=== PATIENT | male | born 1940 | race Caucasian/White ===

== ENCOUNTER → 2017-09-22 11:45 | Outpatient (CLI) | payer MEDICARE, OTHER, SELFPAY ==
[2017-09-22 14:44] LABS: ALB/GLOB Ratio 0.9 RATIO (0.9-2.4); AST(SGOT) 29 U/L (15-37); Alanine Aminotransfer ALT/SGPT 32 U/L (16-61); Albumin, Serum 4.1 g/dL (3.2-5.0); Alkaline Phosphatase 91 U/L (45-117); Anion Gap 11 (5-15); BUN 41 mg/dL (7-18); BUN/Creat Ratio 24.7 RATIO (10-20); Calcium,Total 8.8 mg/dL (8.5-10.1); Chloride 116 mmol/L (98-107); Creatinine, Serum 1.66 mg/dL (0.70-1.30); EST Glomerular Filtration Rate 43 mL/min (>60); Est Glom Filt Rate - Afr Amer 52 mL/min (>60); Globulin 4.4 g/dL (2.2-4.2); Glucose 127 mg/dL (74-106); Potassium 4.2 mmol/L (3.5-5.1); Protein, Total 8.5 g/dL (6.4-8.2); Sodium Level 143 mmol/L (136-145); T4 Free Direct 0.63 ng/dL (0.76-1.46); Thyroid Stim Hormone (TSH) 3.51 uIU/mL (0.358-3.74)
== END ==
PROVIDERS: Family Provider Family Medicine; PCP Family Medicine; Visit Provider Family Medicine
DX: R94.6 Abnormal results of thyroid function studies (principal); K59.1 Functional diarrhea
CPT/HCPCS: 36415; 80053; 82271; 82274; 83630; 84439; 84443; 87177; 87209; 87493

== ENCOUNTER → 2017-10-12 16:14 | Outpatient (CLI) | payer MEDICARE, OTHER, SELFPAY ==
--- NOTE | 2017-10-12 16:19 | RAD_ITS ---
STUDY: X-RAY - ABDOMEN/PELVIS REASON FOR EXAM: Male, 77 years old. Right abdominal pain TECHNIQUE: Supine and upright views of the abdomen and pelvis were obtained. COMPARISON: CT abdomen and pelvis dated October 21, 2015 FINDINGS: The lung bases are unremarkable. There is an unremarkable bowel gas pattern. There is no demonstrated free abdominal air. There are coarse calcifications projected over the lower aspects of both kidneys, right larger than left. Calcified granulomas are again seen in the spleen. There are round calcific densities in the right lower quadrant, possible fecaliths within diverticula. The soft tissues are unremarkable. There are mild degenerative changes in the visualized spine. Sternotomy wires are present. RAD/Abd Inc Decub and/or Erect IMPRESSION: Renal stones project over both kidneys, also present on the prior CT. There is a faint calcific density adjacent to the right transverse process of L2, of unknown location or etiology. This may be located within bowel. There are no acute bowel abnormalities. Electronically Signed: Kim Ford MD at 16:52 EDT Tel Direct: [phone], Service support ,
== END ==
PROVIDERS: Family Provider Family Medicine; PCP Family Medicine; Visit Provider Family Medicine
DX: N20.0 Calculus of kidney (principal)
CPT/HCPCS: 74019

== ENCOUNTER → 2017-12-26 10:38 | Outpatient (CLI) | payer MEDICARE, OTHER, SELFPAY ==
[2017-12-26 13:09] LABS: Anion Gap 8 (5-15); BUN 21 mg/dL (7-18); BUN/Creat Ratio 14.9 RATIO (10-20); Calcium,Total 8.8 mg/dL (8.5-10.1); Chloride 112 mmol/L (98-107); Creatinine, Serum 1.41 mg/dL (0.70-1.30); EST Glomerular Filtration Rate 52 mL/min (>60); Est Glom Filt Rate - Afr Amer 63 mL/min (>60); Glucose 89 mg/dL (74-106); Potassium 3.9 mmol/L (3.5-5.1); Sodium Level 144 mmol/L (136-145); T4 Free Direct 0.85 ng/dL (0.76-1.46); Thyroid Stim Hormone (TSH) 1.86 uIU/mL (0.358-3.74)
== END ==
PROVIDERS: Family Provider Family Medicine; PCP Family Medicine; Visit Provider Family Medicine
DX: E03.9 Hypothyroidism, unspecified (principal); H53.2 Diplopia; I10 Essential (primary) hypertension
CPT/HCPCS: 36415; 80048; 84439; 84443

== ENCOUNTER → 2017-12-28 17:34 | Outpatient (CLI) | payer MEDICARE, OTHER, SELFPAY ==
--- NOTE | 2017-12-28 17:44 | MRI_ITS ---
STUDY: MRI BRAIN WITH AND WITHOUT CONTRAST REASON FOR EXAM: Male, 77 years old. Diplopia for 2 months TECHNIQUE: Standardized multiplanar fat and water weighted pulse sequences were obtained. 10 ml of Gadavist contrast material was administered intravenously for the contrast portion of the examination. COMPARISON: None. FINDINGS: Mild atrophy and periventricular white matter ischemic changes without mass effect or restricted diffusion. 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 Normal thalami. There is no extra-axial fluid accumulation. Normal flow voids within the major intracranial circulation suggesting patency by spin echo criteria. Normal venous enhancement. There is no enhancing intra-axial or extra-axial abnormality. Normal sella turcica, pituitary gland, infundibular stalk, optic chiasm and hypothalamus. Normal tectal plate and pineal gland. Normal midbrain, rubin and medulla. Normal cerebellum. Normal basal cisterns. Normal bilateral temporal bones. Normal bilateral internal auditory canals. There is fluid signal within the right mastoids consistent with inflammatory disease No demonstrated orbital abnormality, within the constraints of a routine brain study. There is mild mucosal thickening within the ethmoid sinuses.. Normal calvarium and skull base. Normal visualized soft tissue structures. Normal visualized upper cervical spine. MRI/Brain W/WO Contrast IMPRESSION: Mild atrophy and periventricular white matter ischemic changes without evidence for acute infarct.. Mild bilateral ethmoid and right mastoid sinus disease Electronically Signed: Naun Hall MD at 19:48 EDT , Service support ,
== END ==
PROVIDERS: Family Provider Family Medicine; PCP Family Medicine; Visit Provider Ophthalmology
DX: H53.2 Diplopia (principal)
CPT/HCPCS: 70553; A9585

== ENCOUNTER → 2018-02-02 12:16 | Outpatient (CLI) | payer MEDICARE, OTHER, SELFPAY ==
[2018-02-02 15:18] LABS: Anion Gap 7 (5-15); BUN 20 mg/dL (7-18); Calcium,Total 9.2 mg/dL (8.5-10.1); Chloride 112 mmol/L (98-107); Creatinine, Serum 1.25 mg/dL (0.70-1.30); EST Glomerular Filtration Rate 60 mL/min (>60); Est Glom Filt Rate - Afr Amer 72 mL/min (>60); Glucose 133 mg/dL (74-106); Sodium Level 143 mmol/L (136-145)
== END ==
PROVIDERS: Family Provider Family Medicine; PCP Family Medicine; Visit Provider Family Medicine
DX: I10 Essential (primary) hypertension (principal)
CPT/HCPCS: 36415; 80048

== ENCOUNTER → 2018-08-01 10:56 | Outpatient (CLI) | payer MEDICARE, OTHER, SELFPAY ==
[2018-05-22 09:35] VITALS: BMI 26.7
[2018-08-01 13:00] LABS: ALB/GLOB Ratio 1.3 RATIO (0.9-2.4); AST(SGOT) 32 U/L (15-37); Alanine Aminotransfer ALT/SGPT 31 U/L (16-61); Albumin, Serum 4.1 g/dL (3.2-5.0); Alkaline Phosphatase 94 U/L (45-117); Anion Gap 12 (5-15); BUN 22 mg/dL (7-18); BUN/Creat Ratio 16.7 RATIO (10-20); Calcium,Total 9.1 mg/dL (8.5-10.1); Chloride 110 mmol/L (98-107); Cholesterol 195 mg/dL (200); Creatinine, Serum 1.32 mg/dL (0.70-1.30); EST Glomerular Filtration Rate 56 mL/min (>60); Est Glom Filt Rate - Afr Amer 68 mL/min (>60); Globulin 3.2 g/dL (2.2-4.2); Glucose 126 mg/dL (74-106); High Density Lipoprotein 35 mg/dL; Potassium 4.4 mmol/L (3.5-5.1); Protein, Total 7.3 g/dL (6.4-8.2); Sodium Level 146 mmol/L (136-145); Thyroid Stim Hormone (TSH) 1.17 uIU/mL (0.358-3.74); Triglycerides 195 mg/dL; Very Low Density Lipoprotein 39 mg/dL (5-40)
--- OUTSIDE RECORDS SUMMARY | 2018-10-03 08:43 | XMS RPT_ITS ---
:1940 Author Organization OHIP Care Team Providers Name Role Phone Sajan Rowley Attending Unavailable Amrik, Christopher Primary Care Unavailable Gt Rodgers Attending Unavailable Sajan Rowley Referring Unavailable Amrik, Christopher Primary Care Unavailable Sajan Rowley Attending Unavailable Amrik, Christopher Primary Care Unavailable Earl Drummond Attending Unavailable Earl Drummond Referring Unavailable Amrik, Christopher Primary Care Unavailable Sajan Rowley Attending Unavailable Amrik, Christopher Primary Care Unavailable Naun Alvarez Consulting Unavailable Naun Alvarez Attending Unavailable Naun Alvarez Referring Unavailable Amrik, Christophruthie Primary Care Unavailable Sajan Rowley Attending Unavailable Amrik, Christopher Primary Care Unavailable Teddy Anaya Attending Unavailable Sajan Rowley Referring Unavailable PROBLEMS PROBLEMS DATE TYPE CONDITION / CODE ATTENDING STATUS SOURCE 05/22/2018 Unknown I25.10 - Héctor, Benton Active [place] Atherosclerotic heart [facility] disease of [facility] coronary artery Repository without angina pectoris / I25.10(ICD-10) 05/22/2018 Unknown I10 - Essential Héctor, Teddy Active [facility] (primary) [facility] hypertension / Hospital I10(ICD-10) Repository 05/22/2018 Unknown I65.21 - Occlusion Héctor, Teddy Active [facility] and stenosis of right [facility] carotid artery / Hospital I65.21(ICD-10) Repository 05/22/2018 Unknown E78.5 - Héctor, Teddy Active [place] Hyperlipidemia, [facility] unspecified / Hospital E78.5(ICD-10) Repository 12/28/2017 Unknown H53.2 - Diplopia / Alvarez, Active [facility] H53.2(ICD-10) [facility] Repository 10/12/2017 Unknown N20.0 - Calculus of DrummondEarl Active [facility] kidney / [facility] N20.0(ICD-10) Hospital Repository PROCEDURES PROCEDURES No Procedure Records FoundRESULTS RESULTS COMPREHENSIVE METABOLIC Collected: 08/01/2018 Status: F Source: [facility] PROFIL 10:57 AM [facility] REPOSITORY TYPE CODE TESTS RESULT OUT OF RANGE REFERENCE UNITS LAB L501.0100 74-106 mg/dL High GLU 126 Result Comment: Fasting Glucose result greater than or equal to 126 mg/dL suggests DIABETES MELLITUS per A.D.A. criteria. Please note revised GLUCOSE reference range effective 2017. LAB L501.1000 7-18 mg/dL High BUN 22 LAB L501.1100 0.70-1.30 mg/dL High CREAT,SERUM 1.32 Result Comment: The validity of the calculated GFR AND GFRAA in patients over 70 years has not been determined. Clinical correlation is essential. LAB L501.1110 >60 mL/min Low EST GFR 56 Result Comment: Non- GFR Calc LAB L501.1115 >60 mL/min Normal EST GFR - AA 68 Result Comment: GFR Calc LAB L501.1300 10-20 RATIO Normal BUN/CRE 16.7 LAB L501.1500 6.4-8.2 g/dL T Normal PROT 7.3 LAB L501.1800 3.2-5.0 g/dL Normal ALB 4.1 LAB L501.1950 2.2-4.2 g/dL Normal GLOB 3.2 LAB L501.2000 0.9-2.4 RATIO Normal A/G 1.3 LAB L501.2200 8.5-10.1 mg/dL CA Normal 9.1 LAB L501.4100 15-37 U/L Normal AST 32 LAB L501.4305 45-117 U/L Normal ALK P 94 LAB L501.4405 16-61 U/L Normal ALT 31 LAB L501.4600 0.20-1.00 mg/dL T Normal BILI 1.00 LAB L501.5300 136-145 mmol/L High NA 146 LAB L501.5600 3.5-5.1 mmol/L K Normal 4.4 LAB L501.5900 98-107 mmol/L High CL 110 LAB L501.6100 21.0-32.0 mmol/L Normal CO2 24.0 LAB L501.6200 5-15 Normal GAP 12 Performed By: #### L500.4050, L500.4100, L501.9520 #### [facility] [address] [place], [place], [address] LIPID PROFILE Collected: 08/01/2018 Status: F Source: DOWNEY 10:57 AM REPOSITORY TYPE CODE TESTS RESULT OUT OF RANGE REFERENCE UNITS LAB L501.4900 200 mg/dL Normal CHOL 195 Result Comment: <200 mg/dL Desirable 200-240 mg/dL Borderline >240 mg/dL High Risk LAB L501.5000 mg/dL Normal TRIG 195 Result Comment: The drugs N-Acetylcysteine and Metamizole may falsely depress this assay. Serum Triglycerides Reference Interval Normal <150 mg/dL Borderline high 150 - 199 mg/dL High 200 - 499 mg/dL Very High > or = 500 mg/dL LAB L501.6400 mg/dL Low HDL 35 Result Comment: The drugs N-Acetylcysteine and Metamizole may falsely depress this assay. Reference Range HDL <40 mg/dL Low HDL Cholesterol HDL >or= 60 mg/dL High HDL Cholesterol LAB L501.6500 0-130 mg/dL Normal LDL 121 LAB L501.6600 5-40 mg/dL Normal VLDL 39 Performed By: #### L500.4050, L500.4100, L501.9520 #### [facility] [address] [place], [address] THYROID STIM HORMONE Collected: 08/01/2018 Status: F Source: [facility] (TSH) 10:57 AM REPOSITORY TYPE CODE TESTS RESULT OUT OF RANGE REFERENCE UNITS LAB L501.9520 0.358-3.74 uIU/mL Normal TSH 1.17 Performed By: #### L500.4050, L500.4100, L501.9520 #### [facility] [address] [place], [address] CARDIOLOGY VISIT Observed: 05/22/2018 Status: F Source: ASIM REPORT 9:49 AM REPOSITORY [facility] [address] [place] [address] OFFICE VISIT Date of Service: 05/22/18 MR#: [id number] Acct: [id number] Name: GIA VIRAMONTES Rep #: [id number] : 1940 Provider: Teddy Anaya MD Age/Sex: 77/M [place] [facility] [place] Signed [facility] Chief Complaint: Follow-up visit. Details: GIA VIRAMONTES, is a 77 M who presents to the office today for a follow-up visit. He is a gentleman with a history of coronary artery disease status post coronary artery bypass surgery in 2013, with a left internal mammary artery to the left anterior descending artery, saphenous vein graft to the diagonal branch, saphenous vein graft to posterior descending artery, hypertension and hyperlipidemia. He also has a history of carotid artery disease. He denies any chest pain or shortness of breath or paroxysmal nocturnal dyspnea or pedal edema since his bypass surgery he has not had any neck arm or jaw discomfort to suggest angina. He tells me that he recently had cataract surgery. He did have his blood pressure medications adjusted and they appear to be doing much better. His physical exam today demonstrates clear lung brizuela regular rate and rhythm and no pedal edema. His blood pressure is under excellent control. Intake Vital Signs05/22/18 Height 6 ft 05/22/18 Weight: 197 lb 05/22/18 Body Mass Index (BMI) 26.7 05/22/18 Blood Pressure 132/62 H 05/22/18 Blood Pressure Location Lt brachial Intake Visit Reasons: 1 Y FU Veterinary Practitioner Required: No Accompanied by: Is patient in pain?: No Allergies atorvastatin calcium [From Lipitor] Adverse Reaction (Verified 05/22/18 09:36) body aches ezetimibe [From Zetia] Adverse Reaction (Verified 05/22/18 09:36) body aches rosuvastatin calcium [From Crestor] Adverse Reaction (Verified 05/22/18 09:36) body aches Medications Acetaminophen [Tylenol] 500 mg PO Q6H PRN PRN 01/01/14 [History Confirmed 05/22/18] Aspirin [Aspirin, Baby] 81 mg PO DAILY@0800 01/01/14 [History Confirmed 05/22/18] Gemfibrozil 600 mg PO BID 01/01/14 [History Confirmed 05/22/18] Allopurinol [Zyloprim] 300 mg PO DAILY 10/21/15 [History Confirmed 05/22/18] Pantoprazole Sodium [Protonix] 40 mg PO DAILY 10/21/15 [History Confirmed 05/22/18] Potassium Citrate [Potassium Citrate ER] 10 meq PO 4X/DAY 11/18/16 [History Confirmed 05/22/18] metoprolol tartrate 25 mg tablet 25 mg PO BID #180 tab 05/14/18 [Rx Confirmed 05/22/18] amlodipine 5 mg tablet 5 mg PO BID tab 05/22/18 [History Confirmed 05/22/18] levothyroxine 50 mcg capsule 50 mcg PO DAILY 05/22/18 [History Confirmed 05/22/18] lisinopril 40 mg tablet 40 mg PO DAILY 05/22/18 [History Confirmed 05/22/18] [facility] Medical History Carotid stenosis, right (Resolved) Screening for colon cancer (Resolved) Gangrenous cholecystitis (Resolved) HTN (hypertension) (Chronic) Hyperlipemia (Chronic) CAD (coronary artery disease) (Chronic) Diabetes mellitus (Chronic) Surgical History history open heart bypass (Resolved) Status post laparoscopic cholecystectomy (Resolved) Family History Father Diabetes Hypertension High cholesterol Brother High cholesterol Social History Smoking Status: Former smoker alcohol intake: never substance use type: does not use ROS Const Const: Negative for fatigue, weakness, night sweats, excessive sweating, frequent falls, headache(s) or daytime sleepiness Eyes Eyes: Negative for loss of peripheral vision, transient loss of vision, blind spots, double vision or blurry vision ENT ENT: Negative for headache(s), dizziness, balance problems, Nosebleed/epistaxis, tongue swelling or lip swelling Cardio Chest Pain: No Palpitations: No Edema: None Muscle aches with walking: None Resp Respiratory: Negative for SOB at rest, SOB orthopnea\SOB lying down, Cough, paroxysmal nocturnal dyspnea or SOB with activity GI GI: Negative nausea, vomiting, heartburn, black,tarry stools or bright, red blood in stools : Negative for hematuria Musc Musc: Negative for balance problems, muscle aches/ myalgia, muscle weakness or joint pain Skin Skin: Negative non-healing lesions, unusual bruising or rash Neuro Neuro: Negative for weakness, frequent falls, headache(s), double vision, dizziness, lightheadedness, orthostatic symptoms, blurry vision or lack of coordination Jin Hematologic/Lymphatic: Negative for easy bruising or easy bleeding Endo Endo: Negative for fatigue, excessive sweating, cold intolerance, heat intolerance, increased thirst/drinking or hair loss Psych Psych: Negative for anxiety or depression Allergy Allergy/Immunology: Negative for throat swelling, Negative for tongue swelling, Negative for hives, Negative for rash, Negative for lip swelling Cardiology Exam Const Appearance: cooperative, healthy appearing, well developed, well groomed and no acute distress Nutritional Appearance: well nourished and average body habitus Orientation: alert, awake and oriented x3 Head Head: normal to inspection, normocephalic and atraumatic Ears: hearing grossly normal bilaterally and external ears normal Nose: external nose normal, nasal mucous membranes and turbinates normal, nares normal, septum normal, no nasal discharge Face and Sinus: face symmetric Mouth: oral mucosae normal, tongue normal, oropharynx normal and moist mucous membranes Teeth and gingiva: dentition normal Throat: posterior oropharynx normal, tonsils normal and uvula midline Eyes General: appearance normal, both eyes and all related structures Eyelids: eyelids normal Conjunctivae: conjunctivae normal Pupils: PERRL, normal by confrontation and accommodation normal EOM: EOM intact bilaterally Neck Neck: normal visual inspection, trachea midline and no JVD JVD: +5 Carotids: normal carotid upstroke and bounding pulses Chest Chest inspection: normal inspection of the chest, symmetric chest movement and normal respiratory effort Auscultation: Bilateral: Clear to Auscultation Cardio Palpation: normal PMI Rate: regular rate Rhythm: regular rhythm Heart sounds: S1 normal, S2 normal and normal, physiologic split S2; negative rub, gallop or murmur GI GI: normal to inspection, soft, no hepatosplenomegaly and bowel sounds present Neuro General: alert, awake, oriented x3, no focal sensory deficit, gait normal and moves all extremities Skin Skin: no rashes or lesions noted Extremities Pulses: Normal: Right Femoral Pulse, Left Femoral Pulse, Right Dorsalis Pedis Pulse, Left Dorsalis Pedis Pulse, Right Posterior Tibial Pulse, Left Posterior Tibial Pulse, Right Radial Pulse, Left Radial Pulse Lower Extremity Edema: None: Bilateral Musculoskel Musculoskeletal: No joint tenderness Psych Psychological: normal affect Assessment AND Plan 1. CAD (coronary artery disease) I25.10 Plan He does have a history of coronary artery disease and appears to be doing quite well the plan will be for him to continue the current medical therapy. At his next visit next year we should consider an exercise myocardial perfusion stress test. 2. HTN (hypertension) I10 Plan He does have a history of hypertension which is better controlled since his blood pressure medications were adjusted. He will continue on the same without as making any changes. 3. Carotid stenosis, right I65.21 Plan He does have moderate carotid disease noted on his last ultrasound which was performed in June 2017. He appears to have 50-69% stenosis. We will continue with aggressive blood pressure medication adherence as well as lipid-lowering. 4. Hyperlipemia E78.5 Plan He does have a history of hyperlipidemia he tells me that he is scheduled to see you in your office in the next few weeks and a lipid profile will be performed at that time. Please do not hesitate to contact me if any issues arise. 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) Coding Level of Care Code Off vis,est,level 3 Diagnoses CAD (coronary artery disease) I25.10 HTN (hypertension) I10 Carotid stenosis, right I65.21 Hyperlipemia E78.5 Coding Level of Care Code Off vis,est,level 3 Diagnoses CAD (coronary artery disease) I25.10 HTN (hypertension) I10 Carotid stenosis, right I65.21 Hyperlipemia E78.5 05/22/18 0949 <Electronically signed by Teddy Anaya MD> Date Teddy Anaya MD Cosigner Signature: Date (if applicable) CC: Sajan Rowley MD BASIC METABOLIC Collected: 02/02/2018 Status: F Source: [facility] PROFILE (BMP) 12:17 PM REPOSITORY Order Comment: Order Date: 02/02/18 Order Info: 0667-1 - [facility] TYPE CODE TESTS RESULT OUT OF RANGE REFERENCE UNITS LAB L501.0100 74-106 mg/dL High GLU 133 Result Comment: Fasting Glucose result greater than or equal to 126 mg/dL suggests DIABETES MELLITUS per A.D.A. criteria. Please note revised GLUCOSE reference range effective 2017. LAB L501.1000 7-18 mg/dL High BUN 20 LAB L501.1100 0.70-1.30 mg/dL Normal CREAT,SERUM 1.25 Result Comment: The validity of the calculated GFR AND GFRAA in patients over 70 years has not been determined. Clinical correlation is essential. LAB L501.1110 >60 mL/min Normal EST GFR 60 Result Comment: Non- GFR Calc LAB L501.1115 >60 mL/min Normal EST GFR - AA 72 Result Comment: GFR Calc LAB L501.1300 10-20 RATIO Normal BUN/CRE 16.0 LAB L501.2200 8.5-10.1 mg/dL CA Normal 9.2 LAB L501.5300 136-145 mmol/L NA Normal 143 LAB L501.5600 3.5-5.1 mmol/L K Normal 4.0 LAB L501.5900 98-107 mmol/L High CL 112 LAB L501.6100 21.0-32.0 mmol/L Normal CO2 24.0 LAB L501.6200 5-15 Normal GAP 7 Performed By: #### L500.2500 #### [facility] [address] [place], [address] BRAIN W/WO CONTRAST Observed: 12/28/2017 Status: F Source: DOWNEY 5:44 PM REPOSITORY [facility] [place] Imaging Services [address] [place] [address] Brain W/WO Contrast MR#: [id number] Acct: [id number] Name: GIA VIRAMONTES Rep #: [id number] : 1940 M 77 From: Naun Hall MD PCP: Sajan Rowley MD Status: REG CLI Study: Brain W/WO Contrast Date of Exam: 12/28/17 Exam# [id number] Ordering Dr: Naun Alvarez MD STUDY: MRI BRAIN WITH AND WITHOUT CONTRAST REASON FOR EXAM: Male, 77 years old. Diplopia for 2 months TECHNIQUE: Standardized multiplanar fat and water weighted pulse sequences were obtained. 10 ml of Gadavist contrast material was administered intravenously for the contrast portion of the examination. COMPARISON: None. FINDINGS: Mild atrophy and periventricular white matter ischemic changes without mass effect or restricted diffusion. 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 Normal thalami. There is no extra-axial fluid accumulation. Normal flow voids within the major intracranial circulation suggesting patency by spin echo criteria. Normal venous enhancement. There is no enhancing intra-axial or extra-axial abnormality. Normal sella turcica, pituitary gland, infundibular stalk, optic chiasm and hypothalamus. Normal tectal plate and pineal gland. Normal midbrain, rubin and medulla. Normal cerebellum. Normal basal cisterns. Normal bilateral temporal bones. Normal bilateral internal auditory canals. There is fluid signal within the right mastoids consistent with inflammatory disease No demonstrated orbital abnormality, within the constraints of a routine brain study. There is mild mucosal thickening within the ethmoid sinuses.. Normal calvarium and skull base. Normal visualized soft tissue structures. Normal visualized upper cervical spine. MRI/Brain W/WO Contrast IMPRESSION: Mild atrophy and periventricular white matter ischemic changes without evidence for acute infarct.. Mild bilateral ethmoid and right mastoid sinus disease Electronically Signed: Naun Hall MD at 19:48 EDT , Service support , CC: Sajan Rowley MD; Naun Alvarez MD Bonus Clerk: Signed BASIC METABOLIC Collected: 12/26/2017 Status: F Source: [facility] PROFILE (BMP) 10:42 AM REPOSITORY Order Comment: PLEASE SEND CRE RESULT TO FOR A MRI ON MONDAY. ORDERED TSH T4F BMP ORDERED CRE TYPE CODE TESTS RESULT OUT OF RANGE REFERENCE UNITS LAB L501.0100 74-106 mg/dL Normal GLU 89 Result Comment: Please note revised GLUCOSE reference range effective 2017. LAB L501.1000 7-18 mg/dL High BUN 21 LAB L501.1100 0.70-1.30 mg/dL High CREAT,SERUM 1.41 Result Comment: The validity of the calculated GFR AND GFRAA in patients over 70 years has not been determined. Clinical correlation is essential. LAB L501.1110 >60 mL/min Low EST GFR 52 Result Comment: Non- GFR Calc LAB L501.1115 >60 mL/min Normal EST GFR - AA 63 Result Comment: GFR Calc LAB L501.1300 10-20 RATIO Normal BUN/CRE 14.9 LAB L501.2200 8.5-10.1 mg/dL CA Normal 8.8 LAB L501.5300 136-145 mmol/L NA Normal 144 LAB L501.5600 3.5-5.1 mmol/L K Normal 3.9 LAB L501.5900 98-107 mmol/L High CL 112 LAB L501.6100 21.0-32.0 mmol/L Normal CO2 24.0 LAB L501.6200 5-15 Normal GAP 8 Performed By: #### L500.2500, L501.9520, L506.0400 #### [facility] [address] [place], [address] THYROID STIM HORMONE Collected: 12/26/2017 Status: F Source: ASIM (TSH) 10:42 AM REPOSITORY Order Comment: PLEASE SEND CRE RESULT TO FOR A MRI ON MONDAY. ORDERED TSH T4F BMP ORDERED CRE TYPE CODE TESTS RESULT OUT OF RANGE REFERENCE UNITS LAB L501.9520 0.358-3.74 uIU/mL Normal TSH 1.86 Performed By: #### L500.2500, L501.9520, L506.0400 #### [facility] [address] [facility] [place], [address] T4 FREE DIRECT Collected: 12/26/2017 Status: F Source: ASIM 10:42 AM REPOSITORY Order Comment: PLEASE SEND CRE RESULT TO FOR A MRI ON MONDAY. ORDERED TSH T4F BMP ORDERED CRE TYPE CODE TESTS RESULT OUT OF RANGE REFERENCE UNITS LAB L506.0400 0.76-1.46 ng/dL Normal T4 FREE 0.85 DIRECT Performed By: #### L500.2500, L501.9520, L506.0400 #### [facility] [address] [place] [place], [address] ABD INC DECUB Observed: 10/12/2017 Status: F Source: ASIM AND/OR ERECT 4:19 PM REPOSITORY [facility] [place] Imaging Services [address] [address] [facility] [address] Abd Inc Decub and/or Erect MR#: [id number] Acct: [id number] Name: GIA VIRAMONTES Rep #: [id number] : 1940 M 77 From: Kim Ford MD PCP: Sajan Rowley MD Status: REG CLI Study: Abd Inc Decub and/or Erect Date of Exam: 10/12/17 Exam# [id number] Ordering Dr: Earl Drummond MD STUDY: X-RAY - ABDOMEN/PELVIS REASON FOR EXAM: Male, 77 years old. Right abdominal pain TECHNIQUE: Supine and upright views of the abdomen and pelvis were obtained. COMPARISON: CT abdomen and pelvis dated October 21, 2015 FINDINGS: The lung bases are unremarkable. There is an unremarkable bowel gas pattern. There is no demonstrated free abdominal air. There are coarse calcifications projected over the lower aspects of both kidneys, right larger than left. Calcified granulomas are again seen in the spleen. There are round calcific densities in the right lower quadrant, possible fecaliths within diverticula. The soft tissues are unremarkable. There are mild degenerative changes in the visualized spine. Sternotomy wires are present. RAD/Abd Inc Decub and/or Erect IMPRESSION: Renal stones project over both kidneys, also present on the prior CT. There is a faint calcific density adjacent to the right transverse process of L2, of unknown location or etiology. This may be located within bowel. There are no acute bowel abnormalities. Electronically Signed: Kim Ford MD at 16:52 EDT Tel Direct: [phone], Service support , CC: Sajan Rowley MD; Earl Drummond MD Bonus Clerk: Signed COMPREHENSIVE METABOLIC Collected: 09/22/2017 Status: F Source: ASIM PROFIL 11:47 AM REPOSITORY Order Comment: Order Date: 09/21/17 Order Info: [id number] - CMP Order Info: 3016-3 - TSH Order Info: 3024-7 - T4F TYPE CODE TESTS RESULT OUT OF RANGE REFERENCE UNITS LAB L501.0100 74-106 mg/dL High GLU 127 Result Comment: Fasting Glucose result greater than or equal to 126 mg/dL suggests DIABETES MELLITUS per A.D.A. criteria. Please note revised GLUCOSE reference range effective 2017. LAB L501.1000 7-18 mg/dL High BUN 41 LAB L501.1100 0.70-1.30 mg/dL High CREAT,SERUM 1.66 Result Comment: The validity of the calculated GFR AND GFRAA in patients over 70 years has not been determined. Clinical correlation is essential. LAB L501.1110 >60 mL/min Low EST GFR 43 Result Comment: Non- GFR Calc LAB L501.1115 >60 mL/min Low EST GFR - AA 52 Result Comment: GFR Calc LAB L501.1300 10-20 RATIO High BUN/CRE 24.7 LAB L501.1500 6.4-8.2 g/dL High T PROT 8.5 LAB L501.1800 3.2-5.0 g/dL Normal ALB 4.1 LAB L501.1950 2.2-4.2 g/dL High GLOB 4.4 LAB L501.2000 0.9-2.4 RATIO Normal A/G 0.9 LAB L501.2200 8.5-10.1 mg/dL CA Normal 8.8 LAB L501.4100 15-37 U/L Normal AST 29 LAB L501.4305 45-117 U/L Normal ALK P 91 LAB L501.4405 16-61 U/L Normal ALT 32 Result Comment: Please note revised ALT reference range effective 2017. LAB L501.4600 0.20-1.00 mg/dL Normal T BILI 0.60 LAB L501.5300 136-145 mmol/L Normal NA 143 LAB L501.5600 3.5-5.1 mmol/L Normal K 4.2 LAB L501.5900 98-107 mmol/L High CL 116 LAB L501.6100 21.0-32.0 mmol/L Low CO2 16.0 LAB L501.6200 5-15 Normal GAP 11 Performed By: #### L500.4050 #### [facility] [address] [place] [place], [address] THYROID STIM HORMONE Collected: 09/22/2017 Status: F Source: ASIM (TSH) 11:47 AM REPOSITORY Order Comment: Order Date: 09/21/17 Order Info: [id number] - CMP Order Info: 3016-3 - TSH Order Info: 3024-7 - T4F TYPE CODE TESTS RESULT OUT OF RANGE REFERENCE UNITS LAB L501.9520 0.358-3.74 uIU/mL Normal TSH 3.51 Performed By: #### L501.9520, L506.0400 #### [facility] [address] [place], [address] T4 FREE DIRECT Collected: 09/22/2017 Status: F Source: ASIM 11:47 AM REPOSITORY Order Comment: Order Date: 09/21/17 Order Info: [id number] - CMP Order Info: 3016-3 - TSH Order Info: 3024-7 - T4F TYPE CODE TESTS RESULT OUT OF REFERENCE UNITS RANGE LAB L506.0400 0.76-1.46 ng/dL Low T4 FREE 0.63 DIRECT Performed By: #### L501.9520, L506.0400 #### [facility] [place], [address] STOOL Observed: 09/22/2017 Status: F Source: ASIM LACTOFERRIN/WBC 11:47 AM REPOSITORY Order Date: 09/21/17 Order Info: [id number] - WBCST Order Info: 0038-2 - C DIFF Order Info: 2335-8 - GASTOC Stool Lacto/WBC Normal Reference Range = Negative Fecal WBC Lactoferrin Negative: No Fecal WBC Lactoferrin present Performed By: #### M100.0605, M100.7900, M100.6796 #### [facility] [place], [address] Observed: 09/22/2017 Status: F Source: ASIM STOOL OCCULT BLOOD 11:47 AM IFOB REPOSITORY Order Date: 09/21/17 Order Info: [id number] - WBCST Order Info: 0038-2 - C DIFF Order Info: 2335-8 - GASTOC STOB iFOB Occult Blood Positive ORGANISM 1: OCCULT BLOOD POSITIVE Performed By: #### M100.0605, M100.7900, M100.6796 #### [facility] [facility] [address] [place], [place], [address] Observed: 09/22/2017 Status: F Source: ASIM CDIFF (MOLECULAR) 11:47 AM REPOSITORY Order Date: 09/21/17 Order Info: [id number] - WBCST Order Info: 0038-2 - C DIFF Order Info: 2335-8 - GASTOC Cdiff-Molecular Normal Reference Range = Negative C. Diff DNA Negative- No toxigenic C. Diff DNA Detected NAAT METHOD Testing was performed using nucleic acid amplification Performed By: #### M100.0605, M100.7900, M100.6796 #### [facility] [address] [place], [place], [address] Observed: 09/22/2017 Status: F Source: ASIM OVA AND PARASITES 11:47 AM REPOSITORY Order Date: 09/21/17 Order Info: [id number] - OP O + P OVA AND PARASITES EXAM, ROUTINE These results were obtained using wet preparation(s) and trichrome stained smear. This test does not include testing for Crytosporidium parvum, Cyclospora, or Microsporidia. TESTING PERFORMED AT [facility]. ORIGINAL REPORT ON FILE IN LAB CONTAINS ADDITIONAL TEST SITE INFORMATION. Ova/Parasite Exam NO OVA, CYSTS, OR PARASITES FOUND. Performed By: #### M600.5000 #### [facility] [address] [place], [place] [address]iliana [address]. [place], [place], [id number] SURGERY VISIT REPORT Observed: 09/01/2017 Status: F Source: ASIM 2:39 PM REPOSITORY [facility] [address] [facility] [address] [place], [place] [address] OFFICE VISIT Date of Service: 09/01/17 MR#: [id number] Acct: [id number] Name: GIA VIRAMONTES Rep #: [id number] : 1940 Provider: Gt Rodgers MD Age/Sex: 77/M Location: [facility] Status: Signed Intake Vital Signs09/01/17 Height 6 ft 09/01/17 Weight: 211 lb Intake Visit Reasons: carotid Veterinary Practitioner Required: No Is patient in pain?: No Allergies atorvastatin calcium [From Lipitor] Adverse Reaction (Verified 09/01/17 13:58) body aches ezetimibe [From Zetia] Adverse Reaction (Verified 09/01/17 13:58) body aches rosuvastatin calcium [From Crestor] Adverse Reaction (Verified 09/01/17 13:58) body aches Medications Acetaminophen [Tylenol] 500 mg PO Q6H PRN PRN 01/01/14 [History Confirmed 09/01/17] Aspirin [Aspirin, Baby] 81 mg PO DAILY@0800 01/01/14 [History Confirmed 09/01/17] Gemfibrozil 600 mg PO BID 01/01/14 [History Confirmed 09/01/17] Acetaminophen/Diphenhydramine [Tylenol Pm Ex-Strength Caplet] 2 ea PO QHS PRN 10/21/15 [History Confirmed 09/01/17] Allopurinol [Zyloprim] 300 mg PO DAILY 10/21/15 [History Confirmed 09/01/17] Glimepiride [Amaryl] 1 mg PO DAILY 10/21/15 [History Confirmed 09/01/17] Hydrochlorothiazide 12.5 mg PO DAILY 10/21/15 [History Confirmed 09/01/17] Lisinopril [Zestril] 20 mg PO DAILY 10/21/15 [History Confirmed 09/01/17] Metoprolol Tartrate [Lopressor (beta jennifer)] 25 mg PO BID 10/21/15 [History Confirmed 09/01/17] Pantoprazole Sodium [Protonix] 40 mg PO DAILY 10/21/15 [History Confirmed 09/01/17] Potassium Citrate [Potassium Citrate ER] 10 meq PO 4X/DAY 11/18/16 [History Confirmed 09/01/17] [facility] Medical History Carotid stenosis, right (Acute) Screening for colon cancer (Acute) Gangrenous cholecystitis (Acute) HTN (hypertension) (Chronic) Hyperlipemia (Chronic) CAD (coronary artery disease) (Chronic) Diabetes mellitus (Chronic) Surgical History Status post laparoscopic cholecystectomy (Acute) history open heart bypass (Acute) Family History Father Diabetes Hypertension High cholesterol Brother High cholesterol Social History Smoking Status: Former smoker alcohol intake: never substance use type: does not use HPI HPI HPI: GIA VIRAMONTES, is a 77 M who presents to the office today for surgical consultation regarding extracranial carotid artery occlusive disease. The patient is referred by Dr. Naun Alvarez and a written copy of my surgical consult recommendations will return to Dr. Alvarez. The patient denies TIA or CVA. He did have coronary bypass grafting 4 years ago. He had been fatigued had a stress test that demonstrated an abnormality. He denies any focal neurologic change. He has no orthostasis. He does have mild hypertension was noted to be mildly hypertensive today. He remotely was a cigarette smoker for approximately 6 years but he quit 14 years ago. He is able to ambulate without calf claudication. Up until 2 months ago he ambulated routinely. More recently he has slacked off. Laboratory as of June 20, 2017 performed at the [facility] demonstrates a BUN of 16 and creatinine of 1 cholesterol of 194 and triglyceride of 205. LDL cholesterol was 117 and VLDL was 41 The patient states that he has been followed for a period of time for extracranial carotid artery occlusive disease. On July 06, 2017 carotid duplex imaging demonstrated peak systolic velocity within the proximal right internal carotid at 194 cm/s with end-diastolic velocity 55 this was felt to be consistent with 50-69% stenosis. Maximal velocity involving the left internal carotid is 102 cm second systolic flow consistent with less than 50% stenosis. It was felt that the velocities in the right internal carotid has slightly increased from November 13, 2015. He did not reach into a more significant stenosis category. He remains asymptomatic ROS General General: Yes weight change; no appetite, fatigue, colon cancer, breast cancer or weakness HEENT HEENT: No difficulty swallowing, eye injury, eye surgery, swollen glands or hoarseness Endo Endocrine: Yes diabetes mellitus; no thyroid disease, thyroid cancer, Hair loss, heat intolerance or cold intolerance Skin Skin: No rash or changing moles Breast Breast: No left breast lump, right breast lump, nipple discharge, breast pain, abnormal mammogram, abnormal US or breast enlargement Musc Musculoskeletal: Yes back problems, arthritis and gout; no rheumatoid arthritis or joint pain Cardio Cardiovascular: Yes heart disease and high blood pressure; no murmur, pacemaker, atrial fibrillation, heart attack, heart stent, palpitations, shortness of breat with exertion or chest pain Psych Psychiatric: No depression, anxiety or hearing voices Resp Respiratory: No shortness of breath, No sleep apnea, No cough, No COPD, No asthma, No emphysema, No wheezing Gastro Gastrointestinal: Yes abdominal pain, No nausea or vomiting, Yes diarrhea, No constipation, No blood in stool, No acid reflux, No hemorrhoids, No ulcers, Yes gallbladder problem, No black,tarry stools Jin Hematologic: Yes blood thinners, No blood disorders, No bleeding, No anemia, No blood clots Neuro Neurologic: No system reviewed and no additional complaints, except as docu, No as per HPI, No abnormal walking, No abnormal hearing, No abnormal movements, No abnormal speech, No behavioral changes, No burning sensations, No confusion, No seizure-like activity, No unsteadiness, No dizziness, No localized weakness, No frequent falls, No headache(s), No lack of coordination, No loss of vision, No memory loss, Yes numbness, No other visual disturbances, No radiating pain, No restless legs, No sensory deficit, No fainting, Yes tingling, No tremor(s), No weakness, No other Exam Const General: cooperative, healthy appearing Nutritional Appearance: overweight Orientation: alert, oriented x3 [facility] Head: normal to inspection Eyes General: appearance normal, both eyes and all related structures Chest Breast Palpation: No nipple discharge Resp Effort AND Inspection: normal respiratory effort Auscultation: clear to auscultation bilaterally Cardio Rate: regular rate Rhythm: regular rhythm Heart Sounds: no murmurs Other: Bilateral femoral and popliteal and DP and PT pulses are 3+ Bilateral radials and brachials are 3+. Bilateral carotids 3+. I am not able to detect a carotid bruit GI Palpation: soft Neuro Cranial Nerves: CN's II-XI intact bilaterally Extrem General: no calf tenderness Psych Affect: normal affect Assessment AND Plan 1. Carotid stenosis, right I65.21 Plan 77-year-old gentleman with asymptomatic right extracranial carotid artery stenosis. This is in the range of 50-69%. The patient is asymptomatic. I do not believe at this point that he requires surgical intervention. I do not believe that this is of the severity that should affect ophthalmologic surgical healing. I have discussed with the patient means of maximizing his general health. We have particularly discussed diet and exercise and glucose management and hypertension management and salt avoidance. It is of note that the patient's blood pressure today on arrival was 186/83. I believe that this actually is of more concern than his carotid stenosis. I have recommended to him carotid duplex imaging at 1 year and surgical follow-up. He will maximize his general health. I have also asked that he follow- up with Dr. Sajan Rowley regarding his blood pressure. I very much appreciate the kind opportunity of assisting with his surgical care Cc: Dr. Sajan Rowley and Dr. Naun Rodgers M.D., F.A.C.S. Coding Level of Care Code Detailed, Low Diagnoses Carotid stenosis, right I65.21 09/01/17 1439 <Electronically signed by Gt Rodgers MD> Date Gt Rodgers MD Cosign Signature: Date (if applicable) CC: Sajan Rowley MD; Naun Alvarez MD ALLERGIES ALLERGIES DATE TYPE / CODE NAME / CODE REACTION SEVERITY SOURCE 05/22/2018 Drug atorvastatin body aches Unknown [place] Allergy/416 calcium/[id number]( [place] [address]([facility] ED CT) Repository 05/22/2018 Drug rosuvastatin body aches Unknown [place] Allergy/416 calcium/[id number]( [place] [address] Repository 05/22/2018 Drug ezetimibe/[id number] body aches Unknown [place] Allergy/416 7(RXNORM) [place] [address]([facility]) Repository ENCOUNTERS ENCOUNTERS ADMIT/DISCHARGE ACCOUNT ADMITTING ENCOUNTER LOCATION SOURCE NUMBER CLASS 08/01/2018 [id number] Ambulatory Asim [place] 1 [facility] ing:MFPLAB Repository 05/22/2018/ [id number] Ambulatory BMSBuilding:B Asim 8 1 MSUZAIR [facility] Repository 02/02/2018 [id number] Ambulatory [place] As[place] 4 [facility] ing:MFPLAB Repository 12/28/2017 [id number] [place] [facility] ing:MRI Repository 12/26/2017 [id number] Ambulatory Asim [place] 0 [facility] ing:MFPLAB Repository 10/12/2017 [id number] Ambulatory Asim [place] 4 [facility] ing:MTRAD Repository 09/22/2017 [id number] Ambulatory [place] 0 [facility] ing:MFPLAB Repository 09/01/2017/ [id number] Ambulatory BMSBuilding:B [place] [facility] PAYERS PAYERS ENCOUNTER GUARANTOR PAYER SUBSCRIBER SOURCE 08/01/2018 GIA L Primary GIA L [place] [id number] DEER Insurance:MEDICARE CLASONDOB: [facility] [place] PART A BPolicy Number: [id number] [id number] Repository 16[address]Xuj: 330) Date:2018-08-01 [phone] () 08/01/2018 Secondary GIA L [place] Insurance:HUMANA CLASONDOB: [facility] [id number] Hospital Number: Repository [id number] Date:[id number] [address]HJ: 08/01/2018 Tertiary NOT GIVENUNK [place] Insurance:SELF PAY [facility]: Effective Repository Date:2018-08-01 05/22/2018 GIA L Primary GIA L [place] [id number] [place] Insurance:MEDICARE CLASONDOB: [facility] [place] PART A BPolicy Number: [id number], [place] [id number] Repository [address]Iqw: ([phone]) Date:2017-06-21 [phone] () 05/22/2018 Secondary GIA L [place] Insurance:HUMANA CLASONDOB: Community COMMERCIALPolicy [id number] Hospital Number: Repository [id number] Date:[id number] [address] [place] [address]TU: 05/22/2018 Tertiary NOT GIVENUNK [place] Insurance:SELF PAY [facility] Hospital Number: Effective Repository Date:2018-05-22 02/02/2018 GIA L Primary GIA L [place] [id number] [place] Insurance:MEDICARE CLASONDOB: Community [place] PART A BPolicy Number: [id number], [place] [id number] Repository 15[address]Qxq: (196) Date:2018-02-02 [phone] () 02/02/2018 Secondary GIA L [place] Insurance:HUMANA CLASONDOB: Community COMMERCIALPolicy [id number] Hospital Number: Repository [id number] Date:[id number] [address] [place] [address]FA: 02/02/2018 Tertiary NOT GIVENUNK [place] Insurance:SELF PAY [facility] Hospital Number: Effective Repository Date:2018-02-02 12/28/2017 GIA L Primary GIA L [place] [id number] [place] Insurance:MEDICARE CLASONDOB: Community [place] PART A BPolicy Number: [id number] [place], [place] [id number] Repository [address]Mln: (330) Date:2017-12-22 [phone] () 12/28/2017 Secondary GIA L [place] Insurance:HUMANA CLASONDOB: Community COMMERCIALPolicy [id number] Hospital Number: Repository [id number] Date:2341-25-21PL [address] [address]FV: 12/28/2017 Tertiary NOT GIVENUNK [place] Insurance:SELF PAY [facility] Number: Effective Repository Date:2017-12-22 12/26/2017 GIA L Primary GIA L [place] [id number] [place] Insurance:MEDICARE CLASONDOB: Community [place] A BPolicy Number: [id number] [place] [id number] Repository [address]Evd: (330) Date:2017-12-26 [phone] () 12/26/2017 Secondary GIA L [place] Insurance:HUMANA CLASONDOB: Community COMMERCIALPolicy [id number] Hospital Number: Repository [id number] Date:[id number] [address]SM: 12/26/2017 Tertiary NOT GIVENUNK [place] Insurance:SELF PAY [facility] Number: Effective Repository Date:2017-12-26 10/12/2017 GIA L Primary GIA L [place] [id number] [place] Insurance:MEDICARE CLASONDOB: Community [place] PART A BPolicy Number: [id number] [place], [place] [id number] Repository [address]Aby: 330) Date:2017-10-12 [phone] () 10/12/2017 Secondary GIA L [place] Insurance:HUMANA CLASONDOB: [facility] [id number] Hospital Number: Repository [id number] Date:[id number] [address]RL: 10/12/2017 Tertiary NOT GIVENUNK [place] Insurance:SELF PAY [facility] Hospital Number: Effective Repository Date:2017-10-12 09/22/2017 GIA L Primary GIA L [place] [id number] [place] Insurance:MEDICARE CLASONDOB: Community [place] PART A BPolicy Number: [id number] [place], [place] [id number] Repository [address]Dye: (330) Date:2017-09-22 [phone] () 09/22/2017 Secondary GIA L [place] Insurance:HUMANA CLASONDOB: Community COMMERCIALPolicy [id number] Hospital Number: Repository [id number] Date:[id number] [address]ZF: 09/22/2017 Tertiary NOT GIVENUNK [place] Insurance:SELF PAY [facility] Number: Effective Repository Date:2017-09-22 09/01/2017 GIA L Primary GIA L [place] [id number] [place] Insurance:MEDICARE CLASONDOB: [facility] [place] PART A BPolicy Number: [id number] [place], [place] [id number] Repository [address]Ayz: 330) Date:2017-08-23 [phone] () 09/01/2017 Secondary GIA L [place] Insurance:HUMANA CLASONDOB: [facility] COMMERCIALPolicy [id number] Hospital Number: Repository [id number] Date:[id number] [address]LF: 09/01/2017 Tertiary NOT GIVENUNK [place] Insurance:SELF PAY [facility] Hospital Number: Effective Repository Date:2017-08-23
== END ==
PROVIDERS: Family Provider Family Medicine; PCP Family Medicine; Visit Provider Family Medicine
DX: I10 Essential (primary) hypertension (principal)
CPT/HCPCS: 36415; 80053; 80061; 84443

== ENCOUNTER → 2018-12-05 09:14 | Outpatient (CLI) | payer MEDICARE, OTHER, SELFPAY ==
--- NOTE | 2018-12-05 | IMM_PTH ---
PATIENT: GIA VIRAMONTES LOC: [facility] A U#:[id number] AGE/SX: 85/M ROOM: RE12/05/[address]: Dr. Sajan Rowley MD : 1940 BED: DIS: SPEC #: [id number] RECD: 12/07/18 13:21 STATUS: CAMRYN REBraeden #: [id number] ELICIA: 12/05/18 00:[address]: Sajan Rowley DEPT: IMMUNOHISTOCHEMISTRY RECD BY: Denita Zendejas Tissues: Skin of forearm, NOS Procedures: Vimentin (add) Pankeratin (initial) MELAN-A (add) P40 (add) S-100 (add) PHYSICIAN & INSTITUTION [place] [address] SPECIMEN INFORMATION: Tissue Source: Left forearm punch biopsy Clinical Info: Rule out melanoma Specimen Number: [id number] CPT code: 95323, 79968 x4 METHODOLOGY: Deparaffinized sections of prefer/formalin-fixed tissue or PAP/DQ stained slides are incubated with monoclonal/polyclonal antibodies/oligonucleotide probes. Localization is made via biotin free immunoperoxidase method. Appropriate controls are performed and reacted as expected. Results on target cell population are indicated in the following table: RESULTS: ANTIBODY / CLONE RESULT AE1-3 (AE1/AE3/PCK26) negative P40 (BC28) negative Vimentin (V9) positive S-100 (4C4.9) positive Melan A (A103) positive These tests were developed and their performance characteristics determined by [facility]. They may not have been cleared or approved by the U.S. Food and Drug Administration. The FDA has determined that such clearance or approval is not necessary. 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 AM:eli 12/14/18
--- NOTE | 2018-12-05 | LES_PTH ---
PATIENT: GIA VIRAMONTES LOC: [facility] U#:[id number] AGE/SX: 85/M ROOM: RE12/05/[address]: Dr. Sajan Rowley MD : 1940 BED: DIS: SPEC #: [id number] RECD: 12/05/18 17:39 STATUS: CAMRYN VIVIANA #: [id number] ELICIA: 12/05/18 00:[address]: Sajan Rowley DEPT: SURGICAL PATHOLOGY RECD BY: Tim Garcia Tissues: Forearm, NOS Procedures: Gen Path Consultation (on slides) Surgery Specimen Level IV HEADER OPERATION: Left forearm punch biopsy PRE-OP DIAGNOSIS: Rule out melanoma TISSUE SUBMITTED: Left forearm punch biopsy MICROSCOPIC DIAGNOSIS Left forearm, punch biopsy: Malignant melanoma in situ, extending to peripheral margin. Solar elastosis. AM:eli 12/14/18 COMMENT Complete re-excision with adequate margins is recommended. Immunohistochemistry ([id number]) supports the above diagnosis. This case is seen in consultation with Dr. Cloud of [place]. Complete consultation report is viewable in EMR. MICROSCOPIC DESCRIPTION Slides are reviewed. GROSS DESCRIPTION Received in fixative is one container labeled with the patient's name and designated left forearm punch biopsy. The specimen consists of a brown skin biopsy measuring 0.5 cm in diameter and punched to a depth of 0.3 cm. The specimen is totally submitted in one cassette. / CE:rg 12/06/18 TC:0 CPT: 70331
== END ==
PROVIDERS: Family Provider Family Medicine; PCP Family Medicine; Referring Provider Family Medicine; Visit Provider Family Medicine
DX: L98.8 Other specified disorders of the skin and subcutaneous tissue (principal)
CPT/HCPCS: 88305; 88325; 88341; 88342

== ENCOUNTER → 2018-12-06 12:57 | Outpatient (CLI) | payer MEDICARE, OTHER, SELFPAY ==
[2018-05-22 09:35] VITALS: BMI 26.7
--- NOTE | 2018-12-06 12:59 | CDU_ITS ---
Reason For Study: Carotid Stenosis Rt. Velocities/BP Lt. Velocities/BP Prox CCA 73.4/9.5 cm/sec. Prox CCA 84.9/11.3 cm/sec. Mid CCA 87.8/9.5 cm/sec. Mid CCA 128.4/18.8 cm/sec. Dist CCA 73.4/9.5 cm/sec. Dist CCA 108.3/13.3 cm/sec. Prox ICA 220.9/34.5 cm/sec. Prox ICA 119.3/17 cm/sec. Mid ICA 153.6/16.3 cm/sec. Mid ICA 91.3/20 cm/sec. Dist ICA 122.5/13.7 cm/sec. Dist ICA 91.3/20 cm/sec. Rt. ICA/CCA = 3.0. Lt. ICA/CCA = 1.1. Prox ECA 163/5 cm/sec. Prox ECA 141.2 cm/sec. Rt. Vert. 53.2/11.4 cm/sec. Lt. Vert. 55.1/9.7 cm/sec. Right Extracranial There is heterogeneous, smooth atherosclerotic plaque noted in the right common carotid artery. There is heterogeneous, irregular atherosclerotic plaque noted in the right internal carotid artery. There is heterogeneous, irregular atherosclerotic plaque noted in the right external carotid artery. Antegrade flow is noted in the right vertebral artery. Left Extracranial There is heterogeneous, smooth atherosclerotic plaque noted in the left common carotid artery. There is heterogeneous, irregular atherosclerotic plaque noted in the left internal carotid artery. There is homogeneous, smooth atherosclerotic plaque noted in the left external carotid artery. Antegrade flow is noted in the left vertebral artery. Procedure Carotid Duplex 91719. Exam performed in department. Interpretation Summary Irregular calcific plague at the proximal right internal and external carotid arteries. 50-69% stenosis right internal carotid <50% stenosis right external carotid Heterogenous plague distal left common carotid and proximal internal and external carotids <50% stenosis left internal carotid but close to this range <50% stenosis left external carotid Patent and antegrade vertebrals bilaterally No clinically significant change since 07/06/17 Ordering Physician: Sajan Rowley Referring Physician: Sajan Rowley Performed By: Windy Landry RVT
== END ==
PROVIDERS: Family Provider Family Medicine; PCP Family Medicine; Referring Provider Family Medicine; Visit Provider Family Medicine
DX: I65.21 Occlusion and stenosis of right carotid artery (principal)
CPT/HCPCS: 93880

== ENCOUNTER 2019-01-01 11:45 | Day surgery (SDC) | payer MEDICARE, OTHER, SELFPAY ==
[2018-12-20 10:47] VITALS: BMI 27.3
--- NOTE | 2019-01-01 00:17 | HP.PCM_ITS ---
History and Physical Date of Admission: 01/01/19 HISTORY OF PRESENT ILLNESS 78 year old man presents with a pigmented lesion on his left proximal dorsal forearm that had been increasing in size over the last several months and has developed some changes in pigmentation. He underwent a punch biopsy on 12/07/18 and it showed a melanoma in situ extending to the peripheral margin. He denies any trauma. He denies any fever. He denies any drainage or bleeding from the lesion. He presents today for further evaluation and treatment. PAST MEDICAL HISTORY Carotid stenosis, right Gangrenous cholecystitis HTN (hypertension) Hyperlipemia CAD (coronary artery disease) Diabetes mellitus Arthritis Cataracts, bilateral Gout Hearing problem Kidney stones Neuropathy Vascular disease Vision problems PAST SURGICAL HISTORY open heart bypass laparoscopic cholecystectomy ALLERGIES atorvastatin calcium [From Lipitor] ezetimibe [From Zetia] rosuvastatin calcium [From Crestor] MEDICATIONS Acetaminophen [Tylenol] Aspirin [Aspirin, Baby] Gemfibrozil Allopurinol [Zyloprim] Pantoprazole Sodium [Protonix] Potassium Citrate [Potassium Citrate ER] amlodipine levothyroxine lisinopril metoprolol tartrate FAMILY HISTORY Father - Diabetes, Hypertension, High cholesterol Brother - High cholesterol Other - Arthritis, Heart disease SOCIAL HISTORY Smoking Status: Former smoker alcohol intake: never substance use type: does not use REVIEW OF SYSTEMS General - Denies fever, fatigue, and weight loss. Eyes - Has cataracts. Denies glaucoma. ENT - Denies nasal congestion and sore throat. Endocrine - Denies excessive thirst and urination. Has heat and cold intolerance. Patient has diabetes mellitus. Skin - Has enlarging changing pigmented lesion on his left proximal dorsal forearm that was punch biopsied on 12/07/18 and it showed a melanoma in situ. Musculoskeletal - Has joint pain, joint stiffness, weakness of muscles and joints, back pain. Denies arthritis. Neuro - Denies headaches. Cardiovascular - Denies chest pain, fatigue, and shortness of breath with exertion. Psych - Denies anxiety and depression. Respiratory - Denies chronic cough and shortness of breath. Patient is a former smoker. Gastrointestinal - Denies nausea, vomiting, and constipation. Has diarrhea. Hematologic - Denies abnormal bruising and bleeding. Genitourinary - Denies hematuria and urinary frequency. Has incontinence. PHYSICAL EXAMINATION General - Alert and Oriented. HEENT - PERRL. EOMI. Throat is clear. No suspicious lesions noted. Neck - Supple and nontender. No cervical adenopathy. No suspicious lesions noted. Lungs - Clear to auscultation. Heart - Regular rate and rhythm. Abdomen - Soft and nondistended. Extremities - FROM. No axillary adenopathy. Radial pulses are palpable. No inguinal adenopathy. On the left proximal dorsal forearm is a pigmented lesion with scattered areas of darker pigmentation. It measures 2.5 x 2.5 cm. It has irregular borders. A recent punch biopsy on 12/07/18 showed a melanoma in situ extending to the peripheral margin. No ulceration. Lesion is nontender. No other suspicious lesions noted. Neuro - CN II-XII grossly intact. Psych - Normal mood and affect. ASSESSMENT 1. 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 2. Diabetes mellitus. 3. Former smoker. PLAN Recommend further establishing a diagnosis with a completion excision. Will send the lesion to Pathology to confirm that there is not another deeper focus of melanoma in this lesion that may alter the definitive treatment. Will leave the wound open and proceed with Silver dressing changes daily until the pathology report is available. If the pathology confirms melanoma in situ with no further deeper focus of melanoma such as with a thickness between 1 and 4 mm thick, then can proceed with the definitive treatment of wide excision of the melanoma with a 5 mm margin in all directions down to the muscular fascia. Reconstruction will be with a skin graft. The reason for the skin graft and not a skin flap is the possibility of horizontal spread of the melanoma in situ. If melanoma in situ is found again at the margins then additional excision would be necessary around the scar. A skin flap scar would be longer than a skin graft scar and therefore it would result in a larger excision and larger skin graft. If the pathology confirms a deeper focus of melanoma such as with a thickness between 1 and 4 mm thick, then would need to address the lymph nodes with a sentinel node biopsy. If positive then a complete lymph node resection would be necessary. If a wide excision of the melanoma is done and this deeper focus of melanoma is then found, the lymphatic drainage would be disrupted and the sentinel lymph node biopsy would not be as accurate and the patient may need a lymph node resection unnecessarily to make sure melanoma is not present in the lymph nodes which can occur microscopically 25-30% of the time. Also additional margin of resection would be necessary if a deeper focus of melanoma is found. A thin melanoma which has a thickness less than 1 mm needs a margin of excision of 1 cm. An intermediate thickness melanoma which has a thickness between 1 and 4 mm needs a margin of excision of 2 cm. A thick melanoma which has a thickness greater than 4 mm needs a margin of excision of 2-3 cm. Surgery will be done under local anesthesia and IV sedation on an outpatient basis. With a melanoma in situ, there is no need for an Oncology evaluation. However if a deeper focus of melanoma is found (greater than 1 mm thick), then would proceed with an Oncology evaluation. 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 Would like to obtain a yearly CXR and yearly lab work with Liver Profile including an LDH and fractionating the Alkaline Phosphatase. These labs can be coordinated with his PCP. Patient was informed of the risks and complications of the procedure including alternatives to surgery. These were discussed with the patient personally. Patient voices understanding and wishes to proceed. Some of the risks and complications were included in a form from the [employer].
[2019-01-01 12:06] VITALS: BP 137/73; PULSE 52; RESP 16; TEMP 36.4; O2SAT 96; BMI 26.9
[2019-01-01 12:30] LABS: Bedside Glucose 133 mg/dL (70-110)
--- NOTE | 2019-01-01 14:00 | TISS_PTH ---
PATIENT: GIA VIRAMONTES LOC: [facility] – [place] U#:[id number] AGE/SX: 78/M ROOM: RE01/01/[address]: Dr. Jesus Vitale MD : 1940 BED: DIS: 01/01/2019 SPEC #: [id number] RECD: 01/02/19 07:57 STATUS: CAMRYN REBraeden #: [id number] ELICIA: 01/01/19 14:[address]: Jesus Vitale DEPT: SURGICAL PATHOLOGY RECD BY: Migdalia Monsalve ENTERED: 01/02/19 10:03 SP TYPE: Tissue Bx JACOB DR: Dr. 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 Closest cutaneous margin 0.1 cm. Dermal histiocytic reaction, chronic inflammation and fibrosis consistent with previous biopsy site. Solar elastosis. CE:eli 01/04/19 MICROSCOPIC DESCRIPTION Slides are reviewed. 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 The specimen consists of a brownish-penny skin fragment measuring 2.7 x 2.2 x 0.7 cm. A suture is present along the 12 o'clock position. The 12 o'clock margin is inked blue, the 3 o'clock margin is inked red, the 6 o'clock margin is inked green, the 9 o'clock margin is inked orange, the deep margin is inked purple. The specimen is serially sectioned and totally submitted in five cassettes. / FA:eli 01/02/19 TC:0 CPT: 33217
[2019-01-01] MEDS: Cefazolin 2 GM in 0.9% Normal Saline 100 ML IV (15:23)
--- NOTE | 2019-01-01 15:38 | OP.PCM_ITS ---
Report of Operation Date of Procedure: 01/01/19 Pre-Operative Diagnosis: 1. 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 2. Diabetes mellitus. 3. Former smoker. Post-Operative Diagnosis: Same. 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 Description of Surgical Findings:: 78 year old man presents with a pigmented lesion on his left proximal dorsal forearm that had been increasing in size over the last several months and has developed some changes in pigmentation. He underwent a punch biopsy on 12/07/18 and it showed a melanoma in situ extending to the peripheral margin. He denies any trauma. He denies any fever. He denies any drainage or bleeding from the lesion. Patient was informed of the risks and complications of the procedure including alternatives to surgery. These were discussed with the patient personally. Patient voices understanding and wishes to proceed. Some of the risks and complications were included in a form from the [employer]. Size of defect left proximal dorsal forearm - 4 x 3.1 x 0.2 cm. 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 Drains: None. Estimated Blood Loss (mL): 2 ml. Description of Procedure: Patient was taken to OR in supine position and was placed under general anesthesia. The left forearm was prepped and draped in the usual fashion. SCD's were placed for DVT prophylaxis. Perioperative antibiotics were given intravenously. Using xylocaine with epinephrine, the melanoma in situ lesion was infiltrated. After waiting 5 minutes for the anesthetic to take effect, I excised the lesion with a completion excision with a 3 mm margin in all directions down into the subcutaneous tissue thus making it a 3.1 mm excision. A suture was marked at the 12 oclock position for pathology orientation. The lesion was sent to Pathology for analysis to evaluate for any deeper focus of melanoma. Once the final pathology has been confirmed after complete excision, then will proceed with definitive excision with a margin down to the muscular fascia with skin flap or skin graft reconstruction. Hemostasis was obtained with electrocautery. The size of the melanoma defect after completion excision of the melanoma in situ was 4 x 3.1 x 0.2 cm. The wound was dressed with Aquacel Silver followed by 4x4 gauze and secured to the skin with 3-0 Nylon tie over stent suture dressing. This was followed by a compression arminda wrap. Patient tolerated the procedure well and was sent to PACU in satisfactory condition. Patient will be sent home on antibiotics and pain medication. Patient will followup later this week for a wound check and a dressing change. Will instruct the family at that time about the Silver dressing changes. When the final pathology report is available, will then schedule the next procedure which is definitive excision with a margin down to the muscular fascia with skin flap or skin graft reconstruction. Grafts/Implants Used: None. - Complications None. - Admit VTE Documentation VTE Present on Admission: No VTE Mechan Device Prophylaxis: SCD's VTE Pharm Prophylaxis ordered?: No Code Visit Surgery Charges CPT - 31149 ICD-10 - D03.62, E11.9, Z87.891
[2019-01-01 15:43] VITALS: BP 127/65; BP 137/73; PULSE 49; RESP 55; TEMP 36.3; O2SAT 95
[2019-01-01 15:45] VITALS: BP 121/65; BP 137/73; PULSE 48; RESP 16; O2SAT 98
--- NOTE | 2019-01-01 15:45 | DCINST_ITS ---
You will use the following diet at home:: No restrictions, Other - encourage nutritional supplementation with protein to help the healing process. Discharge Activity: May not drive while taking narcotic pain medications., May Shower - wear plastic bag over left arm when showering., - - elevate left arm. May shower in (days): 1 - wear plastic bag over left arm when showring. May resume sexual activity in: No Restrictions Weight Bearing Status: Weight bearing as tolerated Lifting Restrictions: 10 lbs. Keep extremity elevated above heart level: Left Arm Call your doctor if your incision/area has: Continuous Slow Oozing, Sudden Increased Bleeding, Increased Pain/ Swelling, Increased Redness, Foul Smelling Discharge, Swelling at the incision site Call your doctor if you observe: Fever of 101 or Higher, Coldness, Increased Pain, Shortness of breath, Chest pain, Calf discomfort, Uncontrolled pain Suture Line Care: - - aquacel silver dressing changes daily after instructing family at first office visit. Change Dressing in (Days):: 2 - will change dressing in office. Cleanse incision/area with: - - wear plastic bag over left arm when showering. Allergies/Adverse Reactions: Allergies atorvastatin calcium [From Lipitor] Adverse Reaction (Verified 01/01/19 12:04) body aches ezetimibe [From Zetia] Adverse Reaction (Verified 01/01/19 12:04) body aches rosuvastatin calcium [From Crestor] Adverse Reaction (Verified 01/01/19 12:04) body aches Medications to take at Discharge Acetaminophen [Tylenol] 500 mg PO Q6H PRN PRN 01/01/14 Gemfibrozil 600 mg PO DAILY 01/01/14 Allopurinol [Zyloprim] 300 mg PO DAILY 10/21/15 Pantoprazole Sodium [Protonix] 40 mg PO DAILY 10/21/15 amlodipine 5 mg tablet 10 mg PO DAILY tab 05/22/18 levothyroxine 50 mcg capsule 50 mcg PO DAILY 05/22/18 lisinopril 40 mg tablet 20 mg PO DAILY 05/22/18 Acetaminophen/Diphenhydramine [Tylenol Pm Ex-Strength Caplet] 2 ea PO QHS 12/27/18 Metoprolol Tartrate [Lopressor (beta jennifer)] 25 mg PO DAILY 12/27/18 Potassium Chloride [K-Dur] 20 meq PO BID 12/27/18 Cefadroxil [Duricef] 500 mg PO BID #28 cap 01/01/19 Lactobacillus Acidophilus/Fos [Acidophilus Probiotic Tablet] 1 ea PO BID #30 tab 01/01/19 Oxycodone HCl/Acetaminophen [Percocet 5/325] 1 tab PO 4X/DAY PRN PRN 7 Days #30 tab 01/01/19 The following prescriptions were given: Lactobacillus Acidophilus/Fos [Acidophilus Probiotic Tablet] 1 ea PO BID #30 tab Prescription Printed Cefadroxil [Duricef] 500 mg PO BID #28 cap Prescription Printed Oxycodone HCl/Acetaminophen [Percocet 5/325] 1 tab PO 4X/DAY PRN PRN 7 Days #30 tab PRN Reason: Pain Prescription Printed Primary Care Physician: Fidencio Rowley MD [Primary Care Provider] - Test Results: Test results from this visit will be discussed in further detail at your follow- up appointment, if applicable. Please Follow Up With: Jesus Vitale MD When: 01/03/19. call [phone] for appt time. Proposed Discharge Date: 01/01/19
[2019-01-01 15:55] LABS: Bedside Glucose 101 mg/dL (70-110)
[2019-01-01 15:56] VITALS: BP 137/65; BP 137/73; PULSE 49; RESP 18; TEMP 36.7; O2SAT 98
[2019-01-01 16:15] VITALS: BP 137/73
== END 2019-01-01 16:24 | disposition home or self-care (01) ==
LOC: SDC 11:46 → AC 11:46
PROVIDERS: Family Provider Family Medicine; PCP Family Medicine; Referring Provider Surgery; Visit Provider Surgery
PROC: (CPT 11603; principal; 2019-01-01 13:50)
DX: D03.9 Melanoma in situ, unspecified (principal); L57.8 Other skin changes due to chronic exposure to nonionizing radiation; E11.40 Type 2 diabetes mellitus with diabetic neuropathy, unspecified; I10 Essential (primary) hypertension; E78.5 Hyperlipidemia, unspecified; I25.10 Atherosclerotic heart disease of native coronary artery without angina pectoris; M10.9 Gout, unspecified; Z79.82 Long term (current) use of aspirin; Z87.891 Personal history of nicotine dependence
CPT/HCPCS: 11603; 82962; 88305; J7120; J2405

== ENCOUNTER 2019-01-08 12:10 | Day surgery (SDC) | payer MEDICARE, OTHER, SELFPAY ==
[2019-01-07 14:37] VITALS: BMI 26.9
--- NOTE | 2019-01-07 22:38 | HP.PCM_ITS ---
History and Physical Date of Admission: 01/08/19 Date of Admission: 01/01/19 HISTORY OF PRESENT ILLNESS 78 year old man presents with a pigmented lesion on his left proximal dorsal forearm that had been increasing in size over the last several months and has developed some changes in pigmentation. He underwent a punch biopsy on 12/07/18 and it showed a melanoma in situ extending to the peripheral margin. He denies any trauma. He denies any fever. He denies any drainage or bleeding from the lesion. He presents today for further evaluation and treatment. PAST MEDICAL HISTORY Carotid stenosis, right Gangrenous cholecystitis HTN (hypertension) Hyperlipemia CAD (coronary artery disease) Diabetes mellitus Arthritis Cataracts, bilateral Gout Hearing problem Kidney stones Neuropathy Vascular disease Vision problems PAST SURGICAL HISTORY open heart bypass laparoscopic cholecystectomy ALLERGIES atorvastatin calcium [From Lipitor] ezetimibe [From Zetia] rosuvastatin calcium [From Crestor] MEDICATIONS Acetaminophen [Tylenol] Aspirin [Aspirin, Baby] Gemfibrozil Allopurinol [Zyloprim] Pantoprazole Sodium [Protonix] Potassium Citrate [Potassium Citrate ER] amlodipine levothyroxine lisinopril metoprolol tartrate FAMILY HISTORY Father - Diabetes, Hypertension, High cholesterol Brother - High cholesterol Other - Arthritis, Heart disease SOCIAL HISTORY Smoking Status: Former smoker alcohol intake: never substance use type: does not use REVIEW OF SYSTEMS General - Denies fever, fatigue, and weight loss. Eyes - Has cataracts. Denies glaucoma. ENT - Denies nasal congestion and sore throat. Endocrine - Denies excessive thirst and urination. Has heat and cold intolerance. Patient has diabetes mellitus. Skin - Has enlarging changing pigmented lesion on his left proximal dorsal forearm that was punch biopsied on 12/07/18 and it showed a melanoma in situ. Musculoskeletal - Has joint pain, joint stiffness, weakness of muscles and joints, back pain. Denies arthritis. Neuro - Denies headaches. Cardiovascular - Denies chest pain, fatigue, and shortness of breath with exertion. Psych - Denies anxiety and depression. Respiratory - Denies chronic cough and shortness of breath. Patient is a former smoker. Gastrointestinal - Denies nausea, vomiting, and constipation. Has diarrhea. Hematologic - Denies abnormal bruising and bleeding. Genitourinary - Denies hematuria and urinary frequency. Has incontinence. PHYSICAL EXAMINATION General - Alert and Oriented. HEENT - PERRL. EOMI. Throat is clear. No suspicious lesions noted. Neck - Supple and nontender. No cervical adenopathy. No suspicious lesions noted. Lungs - Clear to auscultation. Heart - Regular rate and rhythm. Abdomen - Soft and nondistended. Extremities - FROM. No axillary adenopathy. Radial pulses are palpable. No inguinal adenopathy. On the left proximal dorsal forearm is a pigmented lesion with scattered areas of darker pigmentation. It measures 2.5 x 2.5 cm. It has irregular borders. A recent punch biopsy on 12/07/18 showed a melanoma in situ extending to the peripheral margin. No ulceration. Lesion is nontender. No other suspicious lesions noted. Neuro - CN II-XII grossly intact. Psych - Normal mood and affect. ASSESSMENT 1. 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 2. Diabetes mellitus. 3. Former smoker. PLAN Recommend further establishing a diagnosis with a completion excision. Will send the lesion to Pathology to confirm that there is not another deeper focus of melanoma in this lesion that may alter the definitive treatment. Will leave the wound open and proceed with Silver dressing changes daily until the pathology report is available. If the pathology confirms melanoma in situ with no further deeper focus of melanoma such as with a thickness between 1 and 4 mm thick, then can proceed with the definitive treatment of wide excision of the melanoma with a 5 mm margin in all directions down to the muscular fascia. Reconstruction will be with a skin graft. The reason for the skin graft and not a skin flap is the possibility of horizontal spread of the melanoma in situ. If melanoma in situ is found again at the margins then additional excision would be necessary around the scar. A skin flap scar would be longer than a skin graft s car and therefore it would result in a larger excision and larger skin graft. If the pathology confirms a deeper focus of melanoma such as with a thickness between 1 and 4 mm thick, then would need to address the lymph nodes with a sentinel node biopsy. If positive then a complete lymph node resection would be necessary. If a wide excision of the melanoma is done and this deeper focus of melanoma is then found, the lymphatic drainage would be disrupted and the sentinel lymph node biopsy would not be as accurate and the patient may need a lymph node resection unnecessarily to make sure melanoma is not present in the lymph nodes which can occur microscopically 25-30% of the time. Also additional margin of resection would be necessary if a deeper focus of melanoma is found. A thin melanoma which has a thickness less than 1 mm needs a margin of excision of 1 cm. An intermediate thickness melanoma which has a thickness between 1 and 4 mm needs a margin of excision of 2 cm. A thick melanoma which has a thickness greater than 4 mm needs a margin of excision of 2-3 cm. Surgery will be done under local anesthesia and IV sedation on an outpatient basis. With a melanoma in situ, there is no need for an Oncology evaluation. However if a deeper focus of melanoma is found (greater than 1 mm thick), then would proceed with an Oncology evaluation. 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 Would like to obtain a yearly CXR and yearly lab work with Liver Profile including an LDH and fractionating the Alkaline Phosphatase. These labs can be coordinated with his PCP. Patient was informed of the risks and complications of the procedure including alternatives to surgery. These were discussed with the patient personally. Patient voices understanding and wishes to proceed. Some of the risks and complications were included in a form from the [employer].
[2019-01-08] VITALS (7 sets, daily range): BP systolic 115–161; BP diastolic 46–72; PULSE 46–59; RESP 16; TEMP 36.6–37.2; O2SAT 94–97; BMI 27.0
--- NOTE | 2019-01-08 | LES_PTH ---
PATIENT: GIA VIRAMONTES LOC: [facility] – [place] U#:[id number] AGE/SX: 78/M ROOM: RE01/08/[address]: Dr. Jesus Vitale MD : 1940 BED: DIS: 01/08/2019 SPEC #: [id number] RECD: 01/08/19 08:21 STATUS: CAMRYN VIVIANA #: [id number] ELICIA: 01/08/19 00:[address]: Jesus Vitale DEPT: SURGICAL PATHOLOGY RECD BY: Tim Garcia ENTERED: 01/09/19 14:00 SP TYPE: Lesion OTHR DR: Dr. Sajan Rowley MD Tissues: Skin of forearm, NOS Procedures: Surgery Specimen Level IV HEADER OPERATION: Wide excision melanoma in situ, left proximal dorsal forearm PRE-OP DIAGNOSIS: Melanoma in situ left proximal dorsal forearm TISSUE SUBMITTED: Melanoma in situ left proximal dorsal forearm, suture at 12 o'clock MICROSCOPIC DIAGNOSIS Skin of left proximal dorsum, re-excision: Ulceration with associated acute and chronic inflammation and reactive change. Mild melanocytic hyperplasia. No evidence of residual melanoma. AM:eli 01/11/19 COMMENT Immunohistochemistry ([id number]) supports the above diagnosis. Case has been reviewed in consultation with Dr. Prescott who concurs with the above diagnosis. IDC:[email or web address] MICROSCOPIC DESCRIPTION Slides are reviewed. GROSS DESCRIPTION Received in fixative is one container labeled with the patient's name and designated melanoma in situ left proximal dorsal forearm, suture at 12 o'clock. The specimen consists of a round piece of penny-white skin measuring 4.5 x 4.5 cm and up to 1 cm in thickness. There is a central area of ulceration measuring 3.2 x 3 cm. An unremarkable ring of skin around the ulceration measures 0.5 to 0.6 cm in greatest width. The margins are inked as follows: 12 to 3 o'clock - black, 3 to 6 o'clock - blue, 6 to 9 o'clock - green, 9 to 12 o'clock - yellow and deep margin - red. The specimen is serially sectioned and submitted entirely in 11 cassettes from one end to another. Cassette 1 contains the 3 and 9 o'clock margins. / EZEQUIEL:eli 01/09/19 TC:5 CPT: 71341
--- NOTE | 2019-01-08 | IMM_PTH ---
PATIENT: GIA VIRAMONTES LOC: [facility] [place] U#:[id number] AGE/SX: 78/M ROOM: RE01/08/[address]: Dr. Jesus Vitale MD : 1940 BED: DIS: 01/08/2019 SPEC #: [id number] RECD: 01/14/19 09:52 STATUS: CAMRYN REQ #: [id number] ELICIA: 01/08/19 00:[address]: Jesus Vitale DEPT: IMMUNOHISTOCHEMISTRY RECD BY: Denita Zendejas ENTERED: 01/14/19 09:55 SP TYPE: IMMUNO OTHR DR: Dr. 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 Localization is made via biotin free immunoperoxidase method. Appropriate controls are performed and reacted as expected. Results on target cell population are indicated in the following table: RESULTS: ANTIBODY / CLONE RESULT Block 1 P40 (BC28) negative S-100 (4C4.9) positive Melan A (A103) negative Block 2 P40 (BC28) negative S-100 (4C4.9) negative Melan A (A103) negative Block 3 P40 (BC28) negative S-100 (4C4.9) positive Melan A (A103) negative Block 4 P40 (BC28) negative S-100 (4C4.9) negative Melan A (A103) negative Block 5 P40 (BC28) negative S-100 (4C4.9) negative Melan A (A103) negative Block 6 P40 (BC28) negative S-100 (4C4.9) negative Melan A (A103) negative Block 7 P40 (BC28) negative S-100 (4C4.9) negative Melan A (A103) negative Block 8 P40 (BC28) negative S-100 (4C4.9) negative Melan A (A103) negative Block 9 P40 (BC28) negative S-100 (4C4.9) negative Melan A (A103) negative Block 10 P40 (BC28) negative S-100 (4C4.9) negative Melan A (A103) negative Block 11 P40 (BC28) negative S-100 (4C4.9) negative Melan A (A103) negative These tests were developed and their performance characteristics determined by [facility]. They may not have been cleared or approved by the U.S. Food and Drug Administration. The FDA has determined that such clearance or approval is not necessary. INTERPRETATION: Left proximal dorsal forearm, re-excision: No evidence of residual melanoma. AM:eli 01/15/19 Case has been reviewed in consultation with Dr. Prescott who concurs with the above diagnosis. IDC:SJ
[2019-01-08 13:05] LABS: Bedside Glucose 140 mg/dL (70-110)
[2019-01-08] MEDS: Cefazolin 2 GM in 0.9% Normal Saline 100 ML IV (19:25)
[2019-01-08] MEDS: Mupirocin Ointment 22gm Tube 1 APPLIC (21:00)
--- NOTE | 2019-01-08 21:05 | PCM.OPRPT ---
Report of Operation Date of Procedure: 01/08/19 Pre-Operative Diagnosis: 1. 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 2. 4 cm open surgical melanoma in situ wound left proximal dorsal forearm. 3. Diabetes mellitus. 4. Former smoker. Post-Operative Diagnosis: Same. Surgery/Procedure Performed:: Wide excision 4 cm open surgical melanoma in situ wound left proximal dorsal forearm with STSG reconstruction from left flank (25 cm2). Description of Surgical Findings:: The patient had surgery on 01/01/19 where he underwent completion excision 2.5 cm melanoma in situ left proximal dorsal forearm. Postop wound care was done with Aquacel Silver dressing changes. Pathology showed Melanoma in situ with the closest margin of 0.1 cm. He presents today for definitive wide excision of the melanoma in situ wound left proximal dorsal forearm with a 5 mm margin down to the muscular fascia with a skin graft or skin flap reconstruction. Patient was informed of the risks and complications of the procedure including alternatives to surgery. These were discussed with the patient personally. Patient voices understanding and wishes to proceed. Some of the risks and complications were included in a form from the [employer] [employer]. Size of skin graft left proximal dorsal forearm - 5 x 5 cm. client service administrator: None Type of Anesthesia:: Local MAC - xylocaine with epinephrine and IV sedation. Specimen's removed: Melanoma in situ wound left proximal dorsal forearm to Pathology. Drains: None. Estimated Blood Loss (mL): 10 ml. Description of Procedure: Patient was taken to OR in supine position and was given IV sedation. The left proximal dorsal forearm and left flank areas were prepped and draped in the usual fashion. SCD's were placed for DVT prophylaxis. Perioperative antibiotics were given intravenously. The open melanoma wound left proximal dorsal forearm was marked with a 5 mm margin in all directions. The wound was infiltrated with xylocaine and epinephrine. After waiting 5 minutes for the anesthetic to take effect, I proceeded with a wide excision of his melanoma in situ wound down to the muscular fascia. A suture was marked at the 12 oclock position for pathology orientation. The lesion was sent to Pathology for analysis to rule out carcinoma at the margins. The size of the defect was 5 x 5 cm or 25 cm2. I infiltrated an area on his left flank for the skin graft donor area. After waiting 5 minutes for the anesthetic to take effect, I made an elliptical incision into the subcutaneous tissue. The subcutaneous tissue was removed from the undersurface of the dermis in addition to the deeper dermis thus fashioning a thick split thickness skin graft. The skin graft was placed in saline. Some additional subcutaneous tissue was removed from the donor incision to aid in wound closure. Hemostasis was obtained with electrocautery. The wound was irrigated with saline. The donor incision was closed in a multiple layered fashion with 3-0 Monocryl simple running suture for the deeper Thang's fascial layer. The deep dermis and subcutaneous tissue was approximated with 3-0 Monocryl interrupted sutures. The skin was approximated with 3-0 Nylon simple running suture. Antibiotic ointment was applied to the suture line followed by Kerlix gauze dressing. The thick split thickness skin graft was placed on stretch and meshed with a size 15 scalpel. The graft was then placed in the melanoma defect left proximal dorsal forearm and secured to the skin edge with 3-0 Chromic simple interrupted sutures. 3-0 Chromic sutures were also used for central quilting stabilization. Antibiotic ointment was applied to the skin graft followed by Xeroform gauze and cotton balls soaked in saline and secured to the skin with 3-0 Nylon tie over stent suture dressing. Patient tolerated the procedure well and was sent to PACU in satisfactory condition. Patient will be sent home on antibiotics and pain medication. He will keep his left arm elevated during the initial postop period. Patient will followup in a week for a wound check with takedown of the skin graft dressing and for discussion of the pathology report. The donor incision sutures left flank will be removed in two weeks. Grafts/Implants Used: None. - Complications None. - Admit VTE Documentation VTE Present on Admission: No VTE Mechan Device Prophylaxis: SCD's VTE Pharm Prophylaxis ordered?: No Code Visit Surgery Charges CPT - 04309-12 ICD-10 - D03.62, S51.802A, E11.9, Z87.891 19387 D03.62, S51.802A, E11.9, Z87.891
--- NOTE | 2019-01-08 21:11 | DCINST_ITS ---
You will use the following diet at home:: Calorie/Carbohydrate Controlled (specify 1200, 1400, etc) Discharge Activity: May not drive while taking narcotic pain medications., - - no heavy lifting. keep left arm elevated. May shower in (days): 2 - wear plastic bag over left arm when showering. May resume sexual activity in: No Restrictions Weight Bearing Status: Weight bearing as tolerated Lifting Restrictions: 20 lbs. Keep extremity elevated above heart level: Left Arm Call your doctor if your incision/area has: Continuous Slow Oozing, Sudden Increased Bleeding, Increased Pain/ Swelling, Increased Redness, Foul Smelling Discharge, Swelling at the incision site Call your doctor if you observe: Fever of 101 or Higher, Coldness, Increased Pain, Shortness of breath, Chest pain, Calf discomfort, Uncontrolled pain Suture Line Care: - - after dressing removed left flank in 2 days, apply antibiotic ointment to suture line daily followed by the arminda wrap. will apply antibiotic ointment to skin graft left forearm daily after the skin graft dressing removed in the office. Change Dressing in (Days):: 6 - left forearm skin graft dressing will be removed in the office. Remove Dressing in (days):: 2 - left flank dressing. Cleanse incision/area with: - - may shower in two days and wear plastic bag over left arm when showering. Additional Instructions: Patient has Cefadroxil at home from his previous surgery and will continue them. Patient has Percocet at home and will take them as needed for pain. Allergies/Adverse Reactions: Allergies atorvastatin calcium [From Lipitor] Adverse Reaction (Verified 01/08/19 12:31) body aches ezetimibe [From Zetia] Adverse Reaction (Verified 01/08/19 12:31) body aches rosuvastatin calcium [From Crestor] Adverse Reaction (Verified 01/08/19 12:31) body aches Medications to take at Discharge Acetaminophen [Tylenol] 500 mg PO Q6H PRN PRN 01/01/14 Gemfibrozil 600 mg PO DAILY 01/01/14 Allopurinol [Zyloprim] 300 mg PO DAILY 10/21/15 Pantoprazole Sodium [Protonix] 40 mg PO DAILY 10/21/15 amlodipine 5 mg tablet 10 mg PO DAILY tab 05/22/18 levothyroxine 50 mcg capsule 50 mcg PO DAILY 05/22/18 lisinopril 40 mg tablet 20 mg PO DAILY 05/22/18 Acetaminophen/Diphenhydramine [Tylenol Pm Ex-Strength Caplet] 2 ea PO QHS 12/27/18 Metoprolol Tartrate [Lopressor (beta jennifer)] 25 mg PO DAILY 12/27/18 Potassium Chloride [K-Dur] 20 meq PO BID 12/27/18 Cefadroxil [Duricef] 500 mg PO BID #28 cap 01/01/19 Lactobacillus Acidophilus/Fos [Acidophilus Probiotic Tablet] 1 ea PO BID #30 tab 01/01/19 Primary Care Physician: Fidencio Rowley MD [Primary Care Provider] - Test Results: Test results from this visit will be discussed in further detail at your follow- up appointment, if applicable. Please Follow Up With: Jesus Vitale MD When: monday01/14/19. call [phone] for appt. Proposed Discharge Date: 01/08/19
== END 2019-01-08 22:12 | disposition home or self-care (01) ==
LOC: SDC 12:11 → AC 12:12
PROVIDERS: Family Provider Family Medicine; PCP Family Medicine; Referring Provider Surgery; Visit Provider Surgery
PROC: (CPT 11606; principal; 2019-01-08 14:00)
DX: D03.62 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, including shoulder (principal); E78.5 Hyperlipidemia, unspecified; I25.10 Atherosclerotic heart disease of native coronary artery without angina pectoris; E11.40 Type 2 diabetes mellitus with diabetic neuropathy, unspecified; I10 Essential (primary) hypertension; M10.9 Gout, unspecified; M19.90 Unspecified osteoarthritis, unspecified site; Z79.899 Other long term (current) drug therapy; Z79.82 Long term (current) use of aspirin; Z87.891 Personal history of nicotine dependence; K21.9 Gastro-esophageal reflux disease without esophagitis; Z95.1 Presence of aortocoronary bypass graft
CPT/HCPCS: 11606; 15100; 82962; 88305; 88341; 88342; J7120; J2405

== ENCOUNTER → 2019-01-14 16:29 | Outpatient (CLI) | payer MEDICARE, OTHER, SELFPAY ==
[2019-01-03 13:27] VITALS: BMI 26.9
[2019-01-14 14:58] VITALS: BMI 27.0
--- NOTE | 2019-01-14 16:39 | MRI_ITS ---
STUDY: MRI BRAIN WITHOUT CONTRAST REASON FOR EXAM: Male, 78 years old. Diplopia for one year, history of melanoma TECHNIQUE: Standardized multiplanar fat and water weighted pulse sequences were obtained. COMPARISON: 12/28/2017 FINDINGS: There is asymmetry of the ventricles consistent with an anatomic variant. There are multiple white matter hyperintensities, distributed throughout the deep white matter tracts of the cerebral hemispheres, consistent with moderate chronic white matter ischemic changes. Normal bilateral basal ganglia. Normal thalami. There is no extra-axial fluid accumulation. Normal flow voids within the major intracranial circulation suggesting patency by spin echo criteria. Normal sella turcica, pituitary gland, infundibular stalk, optic chiasm and hypothalamus. Normal tectal plate and pineal gland. Normal midbrain, rubin and medulla. Normal cerebellum. Normal basal cisterns. Normal bilateral temporal bones. Normal bilateral internal auditory canals. There are bilateral ocular lens implants with otherwise normal intraorbital contents. Normal visualized paranasal sinuses. Right mastoid sinus disease. Normal visualized soft tissue structures. Normal visualized upper cervical spine. MRI/Brain without Contrast IMPRESSION: No evidence of metastatic disease on this limited noncontrast study. Moderate microangiopathic white matter disease. No evidence of acute infarct or hemorrhage. Electronically Signed: Abhilash Abdi MD at 19:31 EDT Tel , Service support ,
== END ==
PROVIDERS: Family Provider Family Medicine; PCP Family Medicine; Referring Provider Ophthalmology; Visit Provider Ophthalmology
DX: H53.2 Diplopia (principal); Z01.812 Encounter for preprocedural laboratory examination
CPT/HCPCS: 70551

== ENCOUNTER → 2019-02-04 10:28 | Outpatient (CLI) | payer MEDICARE, OTHER, SELFPAY ==
[2019-02-04 14:42] VITALS: BMI 27.0
== END ==
PROVIDERS: Family Provider Family Medicine; PCP Family Medicine; Referring Provider Surgery; Visit Provider Surgery
DX: T81.89XA Other complications of procedures, not elsewhere classified, initial encounter (principal)
CPT/HCPCS: 87070; 87077; 87186; 87205

== ENCOUNTER → 2019-04-02 11:28 | Outpatient (CLI) | payer MEDICARE, OTHER, SELFPAY ==
[2019-03-20 09:38] VITALS: BMI 27.0
[2019-04-02 15:24] LABS: Absolute Lymphocyte Count 1.08 X10^3/uL (0.83-4.51); Absolute Neutrophil Count 2.2 X10^3/uL (2.0-7.7); Basophil# 0.03 X10^3/uL; Basophil% 0.7 % (0-1); Eosinophil# 0.29 X10^3/uL; Eosinophils% 6.5 % (0-5); Hematocrit 42.7 % (40-54); Lymphocyte # 1.08 X10^3/ul (4.0); Lymphocyte % 24.3 % (19-41); Mean Corp Hgb Conc 32.8 g/dL (32-36); Mean Corpuscular Hgb 31.6 pg (27.0-32.0); Mean Corpuscular Volume 96.4 fL (80-94); Mean Platelet Vol. 9.9 fl (6.2-12.0); Monocyte# 0.82 X10^3/uL; Monocyte% 18.4 % (0-10); NRBC Flagged by Analyzer 0 % (0-5); Neutrophil # 2.21 X10^3/uL (2.7-7.7); Neutrophil % 49.7 % (47-70); Platelet Count 175 K/mm3 (150-450); RBC Distribution Width CV 13.9 % (11.6-14.6); RBC Distribution Width SD 49.2 fl (35.1-43.9); Red Blood Count 4.43 M/mm3 (4.6-6.2); White Blood Count 4.5 K/mm3 (4.4-11.0)
[2019-04-02 15:41] LABS: Vitamin B12 332 pg/mL (211-911); Vitamin D,25 Hydroxy 27.2 ng/mL (29.95-100.01)
[2019-04-02 15:43] LABS: Erythrocyte Sedimentation Rate 33 mm/hr (0-20)
[2019-04-02 15:44] LABS: ALB/GLOB Ratio 0.9 RATIO (0.9-2.4); AST(SGOT) 36 U/L (15-37); Alanine Aminotransfer ALT/SGPT 29 U/L (16-61); Albumin, Serum 3.7 g/dL (3.2-5.0); Alkaline Phosphatase 100 U/L (45-117); Anion Gap 9 (5-15); BUN 27 mg/dL (7-18); Calcium,Total 8.7 mg/dL (8.5-10.1); Chloride 115 mmol/L (98-107); Cholesterol 182 mg/dL (200); Creatinine, Serum 1.35 mg/dL (0.70-1.30); EST Glomerular Filtration Rate 54 mL/min (>60); Est Glom Filt Rate - Afr Amer 66 mL/min (>60); Ferritin 273 ng/mL (26-388); Globulin 4.2 g/dL (2.2-4.2); Glucose 128 mg/dL (74-106); High Density Lipoprotein 33 mg/dL; Iron 78 ug/dL (65-175); Magnesium 1.7 mg/dL (1.6-2.6); Potassium 4.1 mmol/L (3.5-5.1); Protein, Total 7.9 g/dL (6.4-8.2); Sodium Level 144 mmol/L (136-145); Thyroid Stim Hormone (TSH) 2.68 uIU/mL (0.358-3.74); Triglycerides 176 mg/dL; Very Low Density Lipoprotein 35 mg/dL (5-40)
[2019-04-04 14:55] LABS: ANTINUCLEAR ANTIBODIES DIRECT Negative (Negative)
== END ==
PROVIDERS: Family Provider Family Medicine; PCP Family Medicine; Referring Provider Family Medicine; Visit Provider Family Medicine
DX: G57.90 Unspecified mononeuropathy of unspecified lower limb (principal); E11.9 Type 2 diabetes mellitus without complications; E03.9 Hypothyroidism, unspecified
CPT/HCPCS: 36415; 80053; 80061; 82306; 82607; 82728; 83540; 83735; 84443; 85025; 85652; 86038

== ENCOUNTER → 2019-06-03 06:13 | Outpatient (CLI) | payer MEDICARE, OTHER, SELFPAY ==
[2019-05-21 09:49] VITALS: BMI 26.7
--- NOTE | 2019-06-03 09:47 | STRESSREP ---
Stress Test Report Exercise myocardial perfusion stress test. 79-year-old man with a history of coronary artery bypass surgery in 214. Stress protocol: Resting EKG demonstrates sinus bradycardia with a rate of 56 bpm normal intervals noted resting blood pressures 140/88 mmHg. The patient exercised according to regular Ronnie protocol for a total duration of 5 minutes. Patient completed 2 minutes into stage II of the Ronnie protocol the maximum heart rate attained was 162 bpm which was 114% of maximum predicted heart rate the maximum workload was 7 metabolic equivalents. At rest nonspecific ST changes were noted. Occasional premature ventricular complexes were noted. At peak exercise was approximately 2.[address] depression noted in lead II and aVF as well as 1.[address] depression noted in lead III V5 and over 2 mm noted in V6. The above are suggestive of ischemia. The resting blood pressure was 140/88 with a peak blood pressure 190/100. No chest pain was noted but patient was short of breath at the test was terminated due to the target heart rate being achieved. Myocardial perfusion protocol. 11.0 mCi of technetium 99m sestamibi was injected at rest. Patient exercised for 5 minutes at peak exercise 33.0 mCi of technetium 99m sestamibi was injected stress images were obtained stress and rest images were reconstructed in comparing the short axis vertical and horizontal long axis. Gated images were also obtained per Perfusion SPECT analysis: Review of the stress images demonstrate normal cardiac silhouette size. The septum anterior wall lateral wall appeared to be well perfused. In the mid inferior wall there is a medium-sized defect noted on the stress images which completely reverses on the resting images suggesting a moderate amount of inferior ischemia. Gated SPECT analysis: The gated ejection fraction is noted to be 60%. Conclusion: Abnormal exercise myocardial perfusion stress test with evidence of mid inferior ischemia at a moderate workload. Preserved ejection fraction.
[2019-06-03 14:28] LABS: Absolute Lymphocyte Count 1.52 X10^3/uL (0.83-4.51); Absolute Neutrophil Count 2.3 X10^3/uL (2.0-7.7); Basophil# 0.05 X10^3/uL; Eosinophil# 0.36 X10^3/uL; Eosinophils% 7.5 % (0-5); Hematocrit 38.6 % (40-54); Hemoglobin 12.9 g/dL (13.0-16.5); Lymphocyte # 1.52 X10^3/ul (4.0); Lymphocyte % 31.6 % (19-41); Mean Corp Hgb Conc 33.4 g/dL (32-36); Mean Corpuscular Hgb 31.4 pg (27.0-32.0); Mean Corpuscular Volume 93.9 fL (80-94); Mean Platelet Vol. 9.9 fl (6.2-12.0); Monocyte# 0.59 X10^3/uL; Monocyte% 12.3 % (0-10); NRBC Flagged by Analyzer 0 % (0-5); Neutrophil # 2.28 X10^3/uL (2.7-7.7); Neutrophil % 47.4 % (47-70); Platelet Count 207 K/mm3 (150-450); RBC Distribution Width CV 14.6 % (11.6-14.6); RBC Distribution Width SD 50.2 fl (35.1-43.9); Red Blood Count 4.11 M/mm3 (4.6-6.2); White Blood Count 4.8 K/mm3 (4.4-11.0)
[2019-06-03 14:59] LABS: Anion Gap 8 (5-15); BUN 15 mg/dL (7-18); BUN/Creat Ratio 11.5 RATIO (10-20); Calcium,Total 8.4 mg/dL (8.5-10.1); Chloride 116 mmol/L (98-107); EST Glomerular Filtration Rate 57 mL/min (>60); Est Glom Filt Rate - Afr Amer 69 mL/min (>60); Glucose 152 mg/dL (74-106); Potassium 3.9 mmol/L (3.5-5.1); Sodium Level 146 mmol/L (136-145)
== END ==
PROVIDERS: Family Provider Family Medicine; PCP Family Medicine; Referring Provider Internal Medicine Cardiovascular Disease; Visit Provider Internal Medicine Cardiovascular Disease
DX: R00.1 Bradycardia, unspecified (principal); Z95.1 Presence of aortocoronary bypass graft; I25.10 Atherosclerotic heart disease of native coronary artery without angina pectoris; I65.21 Occlusion and stenosis of right carotid artery; I10 Essential (primary) hypertension; E78.5 Hyperlipidemia, unspecified; R94.39 Abnormal result of other cardiovascular function study; Z85.820 Personal history of malignant melanoma of skin
CPT/HCPCS: 36415; 78452; 80048; 85025; 93017; A9500; A4216

== ENCOUNTER 2019-06-10 08:48 | Day surgery (SDC) | payer MEDICARE, OTHER, SELFPAY ==
[2019-05-21 09:49] VITALS: BMI 26.7
--- NOTE | 2019-06-03 14:20 | RAD_ITS ---
STUDY: X-RAY CHEST REASON FOR EXAM: Male, 79 years old. Abnormal stress test. TECHNIQUE: PA and lateral views of the chest. 10/24/2015. COMPARISON: None. FINDINGS: There is elevation of the right hemidiaphragm, stable. The lungs are clear and expanded. There is no demonstrated pleural abnormality. Midline sternotomy wires noted, otherwise normal size heart. Normal mediastinum and anamaria. Normal visualized pulmonary arteries. There is atherosclerotic calcification of the aortic arch with tortuosity. There are diffuse degenerative changes of the visualized thoracic spine. There is degenerative osteoarthritis of the bilateral shoulders. There is no demonstrated abnormality of the visualized soft tissue structures of the upper abdomen. RAD/Chest PA and Lateral IMPRESSION: No acute cardiopulmonary disease. Electronically Signed: Nuha Hawthorne MD at 2:48 EST , Service support ,
[2019-06-05 11:09] VITALS: BMI 26.7
--- NOTE | 2019-06-10 11:15 | CL.D_ITS ---
Patient Name: GIA VIRAMONTES Study Date: 06/10/2019 Performing: Teddy Anaya MD Ht: 72.04 inches 183 cm : 1940 Wt: 196.21 lbs 89 kg Age: 79 Gender: male BSA: 2.11 PROCEDURE(S) PERFORMED QD80-COC/COR/LV/CABG CLINICAL PROFILE AND INDICATIONS Indications: Suspected CAD Heart Failure: None Stress/Imaging Date: 06/03/2019Stress Test with SPECT MPI: Positive Intermediate Risk CAD Presentations: No Sxs, no angina. CONCLUSIONS Status post coronary artery bypass surgery with patent left internal mammary artery to left anterior descending artery, saphenous vein graft to the diagonal vessel, and saphenous vein graft to the poste rior descending artery. Moderate disease is noted in the saphenous vein graft to the posterior desce nding artery. Hypertension is noted and preserved ejection fraction is present. RECOMMENDATIONS Medical therapy DESCRIPTION OF PROCEDURE The patient arrived to the procedure lab. The risks and benefits of the procedure as well as a full d escription of our services here and current unavailability of surgical backup were fully explained to the patient and/or their significant other prior to the catheterization. The Timeout was completed, verifying the correct patient and procedure. The patient's procedural site was prepped and draped in the usual fashion. Local anesthetic was given subcutaneously to right groin region with Lidocaine 2%. Using a modified Seldinger technique, arterial access was obtained via the right femoral artery, a 5 Fr sheath was inserted. Left Coronary Artery selective angiography was performed in multiple views u sing a 5 Fr. JL4 catheter. Right Coronary Artery selective angiography was then performed in multiple views using a 5 Fr. 3DRC (Stephane) catheter. Saphenous Vein graft to the DIAG 1 selective angiograp hy was performed in multiple views using a 5 Fr. 3DRC (Stephane) catheter. Left internal mammary artery graft to the LAD selective angiography was performed in multiple views using a 5 Fr. 3 DRC (Stephane) catheter. Saphenous Vein graft to the RPDA selective angiography was performed in mult iple views using a 5 Fr. AR MOD catheter. Left Ventriculography was performed in JOHNSON projection using a 5 Fr. Pigtail catheter. LV to AO pullback pressures were then recorded.Contrast was injected throu gh the sheath and the Right Iliac and Femoral artery were assessed for possible closure device.The ar terial sheath was pulled and a Mynx closure device was deployed for hemostasis CORONARY ANGIOGRAPHY DOMINANCE: Right Dominant LEFT HEART ASSESSMENT Left Ventricular Ejection Fraction: by LV Gram 60 % Normal LV wall motion Normal Left Ventricular systolic function LEFT MAIN: Angiographically normal LEFT ANTERIOR DESCENDING ARTERY: PROX LAD: is occluded CIRCUMFLEX ARTERY: PROX CIRC: Moderate luminal irregularities up to 50% OM 1: Proximal - Mild luminal irregularities less than 30% RIGHT CORONARY ARTERY: MID RCA: Diffusely diseased up to 70 % GRAFTS: CORCORAN graft to the Mid LAD is patent Saphenous Vein graft to the 1st Diagonal is patent Saphenous Vein graft to the RPDA is patent Saphenous Vein graft to the RPDA has a distal lesion of 60 % COMPLICATIONS No Complications PROCEDURE MEDICATIONS Versed 1 mg IV Oxygen: 2 L/min via nasal cannula SUMMARY OF HEMODYNAMIC DATA Time AIR REST ECG 09:13:25 AO 167/81 (116) SA 10:47:50 LV 158/1, 13 10:59:45 LV 160/3, 11 10:59:51 LV 167/7, 15 11:00:34 LVp 183/27, 65 11:00:39 AOp 172/75 (112) 11:00:44 Signed By Teddy Anaya MD On 06/10/2019 11:14:48 Teddy Anaya MD
== END 2019-06-10 14:15 | disposition home or self-care (01) ==
LOC: CLSP 08:48
PROVIDERS: Family Provider Family Medicine; PCP Family Medicine; Referring Provider Internal Medicine Cardiovascular Disease; Visit Provider Internal Medicine Cardiovascular Disease
DX: I25.10 Atherosclerotic heart disease of native coronary artery without angina pectoris (principal); I10 Essential (primary) hypertension; Z95.1 Presence of aortocoronary bypass graft; Z79.899 Other long term (current) drug therapy; Z79.84 Long term (current) use of oral hypoglycemic drugs; M19.90 Unspecified osteoarthritis, unspecified site; E11.40 Type 2 diabetes mellitus with diabetic neuropathy, unspecified; I65.21 Occlusion and stenosis of right carotid artery; E78.5 Hyperlipidemia, unspecified; M10.9 Gout, unspecified; Z87.891 Personal history of nicotine dependence; R53.83 Other fatigue
CPT/HCPCS: 71046; 93459; 99152; 99153; C1760; J7040; Q9967; C1769

== ENCOUNTER → 2019-06-26 11:35 | Outpatient (CLI) | payer MEDICARE, OTHER, SELFPAY ==
[2019-06-05 11:09] VITALS: BMI 26.7
[2019-06-26 14:21] LABS: Vitamin B12 429 pg/mL (211-911); Vitamin D,25 Hydroxy 40.3 ng/mL (29.95-100.01)
[2019-06-26 14:28] LABS: Anion Gap 9 (5-15); BUN 15 mg/dL (7-18); BUN/Creat Ratio 11.8 RATIO (10-20); Calcium,Total 8.8 mg/dL (8.5-10.1); Chloride 109 mmol/L (98-107); Creatinine, Serum 1.27 mg/dL (0.70-1.30); EST Glomerular Filtration Rate 58 mL/min (>60); Est Glom Filt Rate - Afr Amer 71 mL/min (>60); Glucose 139 mg/dL (74-106); Potassium 3.8 mmol/L (3.5-5.1); Sodium Level 142 mmol/L (136-145); Thyroid Stim Hormone (TSH) 1.54 uIU/mL (0.358-3.74)
== END ==
PROVIDERS: Family Provider Family Medicine; PCP Family Medicine; Referring Provider Family Medicine; Visit Provider Family Medicine
DX: I10 Essential (primary) hypertension (principal); E03.9 Hypothyroidism, unspecified; R79.89 Other specified abnormal findings of blood chemistry; E53.8 Deficiency of other specified B group vitamins
CPT/HCPCS: 36415; 80048; 82306; 82607; 84443

== ENCOUNTER → 2019-09-19 12:03 | Outpatient (CLI) | payer MEDICARE, OTHER, SELFPAY ==
[2019-06-05 11:09] VITALS: BMI 26.7
[2019-09-19 16:08] LABS: AST(SGOT) 83 U/L (15-37); Alanine Aminotransfer ALT/SGPT 73 U/L (16-61); Albumin, Serum 3.8 g/dL (3.2-5.0); Alkaline Phosphatase 103 U/L (45-117); Anion Gap 11 (5-15); BUN 22 mg/dL (7-18); BUN/Creat Ratio 16.2 RATIO (10-20); Calcium,Total 9.2 mg/dL (8.5-10.1); Chloride 112 mmol/L (98-107); Cholesterol 207 mg/dL (200); Creatinine, Serum 1.36 mg/dL (0.70-1.30); EST Glomerular Filtration Rate 54 mL/min (>60); Est Glom Filt Rate - Afr Amer 65 mL/min (>60); Glucose 215 mg/dL (74-106); High Density Lipoprotein 39 mg/dL; Iron 141 ug/dL (65-175); Potassium 3.9 mmol/L (3.5-5.1); Protein, Total 7.8 g/dL (6.4-8.2); Sodium Level 144 mmol/L (136-145); Triglycerides 221 mg/dL; Very Low Density Lipoprotein 44 mg/dL (5-40)
[2019-09-23 11:02] LABS: Vitamin B12 479 pg/mL (211-911); Vitamin D,25 Hydroxy 42.5 ng/mL
== END ==
PROVIDERS: PCP Family Medicine; Referring Provider Family Medicine; Visit Provider Family Medicine
DX: E11.9 Type 2 diabetes mellitus without complications (principal); G57.90 Unspecified mononeuropathy of unspecified lower limb; R79.89 Other specified abnormal findings of blood chemistry
CPT/HCPCS: 36415; 80053; 80061; 82306; 82607; 83540

== ENCOUNTER → 2019-12-27 12:45 | Outpatient (CLI) | payer MEDICARE, OTHER, SELFPAY ==
[2019-06-05 11:09] VITALS: BMI 26.7
--- NOTE | 2019-12-27 12:51 | CT_ITS ---
STUDY: CT MAXILLOFACIAL SINUSES REASON FOR EXAM: Male, 79 years old. SINUSITIS. Right ear pain x 2 months. Pt. had tube placed in rt ear temporarily Jul 2019 with some relief. Additional images of rt mastoid included in exam. RADIATION DOSAGE (If Supplied By Facility): CTDIvol = ( 33.45 ) mGy, DLP = ( 788.91 ) mGycm TECHNIQUE: The patient was scanned in a multi detector CT scanner. High resolution axial imaging was performed without the administration of intravenous contrast material. Sagittal and coronal images were reconstructed. Individualized dose optimization techniques were used for this CT. COMPARISON: None. FINDINGS: FRONTAL SINUSES: Normal aeration, without mucosal inflammatory disease. ETHMOIDAL SINUSES: Normal aeration, without mucosal inflammatory disease. MAXILLARY SINUSES: Normal aeration, without mucosal inflammatory disease. SPHENOIDAL SINUSES: Mucosal thickening along the medial wall of the left sphenoid sinus. There is patency of the bilateral maxillary infundibuli with normal uncinate processes, ethmoid bullae, and hiatus semilunaris. Normal bilateral middle turbinates. Normal bilateral inferior turbinates. Normal midline nasal septum. There is patency of the bilateral nasal airways. Complete opacification of the right mastoid air cells. Soft tissue prominence is seen in the right middle ear cavity surrounding the middle ear ossicles. Cholesteatoma should be ruled out. The visualized bilateral orbital contents are normal. CT/Sinus/Facial Bone IMPRESSION: Opacification of the right mastoid air cells with a soft tissue density in the right middle ear surrounding the ossicles. Cholesteatoma should be ruled out. Mild mucosal thickening along the medial wall of the left maxillary sinus. Electronically Signed: Richard Israel, at 13:48 EDT , Service support ,
== END ==
PROVIDERS: PCP Family Medicine; Referring Provider Otolaryngology; Visit Provider Otolaryngology
DX: J32.9 Chronic sinusitis, unspecified (principal)
CPT/HCPCS: 70486

== ENCOUNTER → 2020-04-08 | Outpatient (CLI) | payer MEDICARE, OTHER, SELFPAY ==
[2019-06-05 11:09] VITALS: BMI 26.7
[2020-04-08 15:38] LABS: Vitamin B12 469 pg/mL (211-911)
[2020-04-08 15:55] LABS: AST(SGOT) 34 U/L (15-37); Alanine Aminotransfer ALT/SGPT 45 U/L (16-61); Alkaline Phosphatase 105 U/L (45-117); Anion Gap 7 (5-15); BUN 20 mg/dL (7-18); BUN/Creat Ratio 16.3 RATIO (10-20); Calcium,Total 8.9 mg/dL (8.5-10.1); Chloride 116 mmol/L (98-107); Creatinine, Serum 1.23 mg/dL (0.70-1.30); EST Glomerular Filtration Rate 60 mL/min (>60); Est Glom Filt Rate - Afr Amer 73 mL/min (>60); Globulin 4.1 g/dL (2.2-4.2); Glucose 112 mg/dL (74-106); Potassium 3.6 mmol/L (3.5-5.1); Protein, Total 8.1 g/dL (6.4-8.2); Sodium Level 145 mmol/L (136-145); Uric Acid 3.5 mg/dL (3.5-7.2)
== END | disposition home or self-care (01) ==
LOC: MFPLAB 11:28
PROVIDERS: PCP Family Medicine; Referring Provider Family Medicine; Visit Provider Family Medicine
DX: E11.9 Type 2 diabetes mellitus without complications (principal); E53.8 Deficiency of other specified B group vitamins; E03.9 Hypothyroidism, unspecified; M10.9 Gout, unspecified
CPT/HCPCS: 36415; 80053; 82607; 84443; 84550

== ENCOUNTER → 2020-04-22 15:22 | Outpatient (CLI) | payer MEDICARE, OTHER, SELFPAY ==
[2019-06-05 11:09] VITALS: BMI 26.7
--- NOTE | 2020-04-22 12:00 | LES_PTH ---
PATIENT: GIA VIRAMONTES LOC: [facility] U#:[id number] AGE/SX: 85/M ROOM: RE04/22/[address]: Dr. Sajan Rowley MD : 1940 BED: DIS: SPEC #: [id number] RECD: 04/22/20 15:08 STATUS: CAMRYN VIVIANA #: [id number] ELICIA: 04/22/20 12:[address]: Sajan Rowley DEPT: SURGICAL PATHOLOGY RECD BY: Migdalia Monsalve Tissues: Skin of chest Procedures: Surgery Specimen Level IV HEADER OPERATION: Shave biopsy PRE-OP DIAGNOSIS: Left chest lesion, rule out melanoma TISSUE SUBMITTED: Left chest lesion MICROSCOPIC DIAGNOSIS Left chest lesion, shave biopsy: Verrucoid keratosis and parakeratosis with mild to moderate atypia, inflamed. Solar elastosis. See comment. AM:eli 04/24/20 COMMENT The lesion appears to have been excised in the planes examined. Case has been reviewed in consultation with Dr. Prescott who concurs with the above diagnosis. IDC:[email or web address] MICROSCOPIC DESCRIPTION Slides are reviewed. GROSS DESCRIPTION Received is one container labeled with the patient's name and not further designated. The specimen consists of a shave biopsy of an irregular piece of penny-white skin measuring 1 x 0.8 x 0.1 cm. The entire specimen is submitted in one cassette. It will be sectioned at the time of embedding. / EZEQUIEL:eli 04/23/20 TC:? CPT: 34857
== END ==
PROVIDERS: PCP Family Medicine; Referring Provider Family Medicine; Visit Provider Family Medicine
DX: L57.8 Other skin changes due to chronic exposure to nonionizing radiation (principal); R23.4 Changes in skin texture; L57.0 Actinic keratosis
CPT/HCPCS: 88305

== ENCOUNTER → 2020-07-06 11:28 | Outpatient (CLI) | payer MEDICARE, OTHER, SELFPAY ==
[2020-06-16 08:00] VITALS: BMI 27.9
== END ==
PROVIDERS: PCP Family Medicine; Visit Provider Family Medicine
DX: Z00.00 Encounter for general adult medical examination without abnormal findings (principal)

== ENCOUNTER → 2020-07-08 10:03 | Outpatient (CLI) | payer MEDICARE, OTHER, SELFPAY ==
[2020-06-16 08:00] VITALS: BMI 27.9
[2020-07-08 13:17] LABS: Anion Gap 8 (5-15); BUN 16 mg/dL (7-18); BUN/Creat Ratio 12.4 RATIO (10-20); Calcium,Total 8.5 mg/dL (8.5-10.1); Chloride 113 mmol/L (98-107); Cholesterol 178 mg/dL (200); Creatinine, Serum 1.29 mg/dL (0.70-1.30); EST Glomerular Filtration Rate 57 mL/min (>60); Est Glom Filt Rate - Afr Amer 69 mL/min (>60); Glucose 137 mg/dL (74-106); High Density Lipoprotein 35 mg/dL; Potassium 3.1 mmol/L (3.5-5.1); Sodium Level 145 mmol/L (136-145); Thyroid Stim Hormone (TSH) 2.39 uIU/mL (0.358-3.74); Triglycerides 134 mg/dL; Very Low Density Lipoprotein 27 mg/dL (5-40)
== END ==
PROVIDERS: PCP Family Medicine; Visit Provider Family Medicine
DX: E03.9 Hypothyroidism, unspecified (principal); E11.9 Type 2 diabetes mellitus without complications; R79.89 Other specified abnormal findings of blood chemistry
CPT/HCPCS: 36415; 80048; 80061; 84443

== ENCOUNTER → 2020-07-28 09:57 | Outpatient (CLI) | payer MEDICARE, OTHER, SELFPAY ==
[2020-06-16 08:00] VITALS: BMI 27.9
[2020-07-28 12:36] LABS: Anion Gap 7 (5-15); BUN 19 mg/dL (7-18); BUN/Creat Ratio 14.8 RATIO (10-20); Calcium,Total 8.9 mg/dL (8.5-10.1); Chloride 113 mmol/L (98-107); Creatinine, Serum 1.28 mg/dL (0.70-1.30); EST Glomerular Filtration Rate 58 mL/min (>60); Est Glom Filt Rate - Afr Amer 70 mL/min (>60); Glucose 150 mg/dL (74-106); Potassium 3.7 mmol/L (3.5-5.1); Sodium Level 143 mmol/L (136-145)
[2020-07-28 13:19] LABS: Vitamin D,25 Hydroxy 40.8 ng/mL
== END ==
PROVIDERS: PCP Family Medicine; Referring Provider Family Medicine; Visit Provider Family Medicine
DX: E11.40 Type 2 diabetes mellitus with diabetic neuropathy, unspecified (principal); E56.1 Deficiency of vitamin K
CPT/HCPCS: 36415; 80048; 82306

== ENCOUNTER → 2020-10-16 09:50 | Outpatient (CLI) | payer MEDICARE, OTHER, SELFPAY ==
[2020-06-16 08:00] VITALS: BMI 27.9
--- NOTE | 2020-10-16 09:56 | CDU_ITS ---
Reason For Study: PVD Rt. Velocities/BP Lt. Velocities/BP Prox CCA 66.9/8.2 cm/sec. Prox CCA 70.4/16.3 cm/sec. Mid CCA 53.9/12.1 cm/sec. Mid CCA 77.7/15.1 cm/sec. Dist CCA 89.1/13.4 cm/sec. Dist CCA 74.1/16.3 cm/sec. Prox ICA 200.2/52.6 cm/sec. Prox ICA 75.3/24.9 cm/sec. Mid ICA 134.6/27 cm/sec. Mid ICA 69.1/22.5 cm/sec. Dist ICA 66.3/18.8 cm/sec. Dist ICA 82.6/22.5 cm/sec. Rt. ICA/CCA = 2.99. Lt. ICA/CCA = 1.11. Prox ECA 132.1/9.7 cm/sec. Prox ECA 141.2/18.8 cm/sec. Rt. Vert. 54.4/12.6 cm/sec. Lt. Vert. 48.7/12.4 cm/sec. Right Extracranial There is homogeneous, smooth atherosclerotic plaque noted in the right common carotid artery. There is heterogeneous, irregular atherosclerotic plaque noted in the right internal carotid artery. There is heterogeneous, irregular atherosclerotic plaque noted in the right external carotid artery. Antegrade flow is noted in the right vertebral artery. Left Extracranial There is homogeneous, smooth atherosclerotic plaque noted in the left common carotid artery. There is heterogeneous, irregular atherosclerotic plaque noted in the left internal carotid artery. There is homogeneous, smooth atherosclerotic plaque noted in the left external carotid artery. Antegrade flow is noted in the left vertebral artery. Procedure Carotid Duplex 96263. This is a Carotid Duplex examination using B-mode, color flow and specral Doppler. Exam performed in department. VL/Carotid Duplex Ultrasound Interpretation Summary Irregular plague proximal right internal carotid with 50-69% stenosis <50% stenosis right external carotid Irregular calcific plague proximal left internal carotid with <50% stenosis <50% stenosis left external carotid Patent, antegrade vertebrals bilaterally No change from 12/06/18 Ordering Physician: Fidencio Rowley Referring Physician: Fidencio Rowley Performed By: Windy Landry RVT
== END ==
PROVIDERS: PCP Family Medicine; Referring Provider Family Medicine; Visit Provider Family Medicine
DX: I65.23 Occlusion and stenosis of bilateral carotid arteries (principal); I73.9 Peripheral vascular disease, unspecified
CPT/HCPCS: 93880

== ENCOUNTER → 2020-10-21 14:32 | Outpatient (CLI) | payer MEDICARE, OTHER, SELFPAY ==
[2020-06-16 08:00] VITALS: BMI 27.9
[2020-10-21 17:58] LABS: Absolute Lymphocyte Count 1.72 X10^3/uL (0.83-4.51); Absolute Neutrophil Count 1.9 X10^3/uL (2.0-7.7); Basophil# 0.04 X10^3/uL; Basophil% 0.9 % (0-1); Eosinophil# 0.32 X10^3/uL; Eosinophils% 7.1 % (0-5); Hematocrit 41.4 % (40-54); Hemoglobin 13.3 g/dL (13.0-16.5); Lymphocyte # 1.72 X10^3/ul (0.83-4.51); Lymphocyte % 38.1 % (19-41); Mean Corp Hgb Conc 32.1 g/dL (32-36); Mean Corpuscular Hgb 30.9 pg (27.0-32.0); Mean Corpuscular Volume 96.3 fL (80-94); Mean Platelet Vol. 10.3 fl (6.2-12.0); Monocyte# 0.52 X10^3/uL; Monocyte% 11.5 % (0-10); NRBC Flagged by Analyzer 0 % (0-5); Neutrophil # 1.91 X10^3/uL (2.7-7.7); Neutrophil % 42.2 % (47-70); Platelet Count 220 K/mm3 (150-450); RBC Distribution Width CV 14.7 % (11.6-14.6); RBC Distribution Width SD 51.8 fl (35.1-43.9); White Blood Count 4.5 K/mm3 (4.4-11.0)
[2020-10-21 18:06] LABS: Erythrocyte Sedimentation Rate 34 mm/hr (0-20)
[2020-10-21 18:09] LABS: Vitamin B12 602 pg/mL (211-911); Vitamin D,25 Hydroxy 40.1 ng/mL
[2020-10-21 18:36] LABS: Hemoglobin A1c 6.7 % (3.8-5.6)
[2020-10-21 18:59] LABS: ALB/GLOB Ratio 1.1 RATIO (0.9-2.4); AST(SGOT) 66 U/L (15-37); Alanine Aminotransfer ALT/SGPT 64 U/L (16-61); Albumin, Serum 4.1 g/dL (3.2-5.0); Alkaline Phosphatase 97 U/L (45-117); Anion Gap 9 (5-15); BUN 19 mg/dL (7-18); CRP < 2.90 mg/L (0.0-3.0); Calcium,Total 9.1 mg/dL (8.5-10.1); Chloride 113 mmol/L (98-107); Creatinine, Serum 1.19 mg/dL (0.70-1.30); EST Glomerular Filtration Rate 63 mL/min (>60); Est Glom Filt Rate - Afr Amer 76 mL/min (>60); Globulin 3.6 g/dL (2.2-4.2); Glucose 125 mg/dL (74-106); Potassium 3.9 mmol/L (3.5-5.1); Protein, Total 7.7 g/dL (6.4-8.2); Rheumatoid Factor < 10.0 IU/mL (<15); Sodium Level 144 mmol/L (136-145); Uric Acid 3.3 mg/dL (3.5-7.2)
[2020-10-23 15:51] LABS: ANTINUCLEAR ANTIBODIES DIRECT Negative (Negative)
[2020-10-29 12:08] LABS: VITAMIN B6 7.4 ug/L (5.3-46.7)
[2020-10-29 17:05] LABS: CCP IgG Antibodies 6 units (0-19)
== END ==
PROVIDERS: PCP Family Medicine; Referring Provider Podiatrist; Visit Provider Podiatrist
DX: G62.9 Polyneuropathy, unspecified (principal)
CPT/HCPCS: 36415; 80053; 82306; 82607; 82746; 83036; 84207; 84443; 84550; 85025; 85652; 86038; 86140; 86200; 86431

== ENCOUNTER → 2020-10-28 08:56 | Outpatient (CLI) | payer MEDICARE, OTHER, SELFPAY ==
[2020-06-16 08:00] VITALS: BMI 27.9
--- NOTE | 2020-10-28 11:43 | NEURO ---
NCS and/or EMG Patient Report Ordering Doctor: Naun Kaur DATE OF SERVICE: 10/28/20 Charli Velasco presents for electrodiagnostic testing of the lower limbs. He reports numbness and tingling in both feet, worse over the past 18 months. Electrodiagnostic findings: Peroneal motor response was obtained at the tibialis anterior. This demonstrates normal distal latency bilaterally with borderline reduced amplitude on the right side. Conduction velocity is reduced bilaterally. Tibial motor responses could not be obtained. Sensory responses could not be obtained. H reflex was obtained and within normal limits bilaterally. On needle EMG, motor units of increased amplitude and duration are noted bilaterally in the tibialis anterior and gastrocnemius. No acute denervation was noted in any muscles tested. Electrodiagnostic impression: This is an abnormal study in the lower limbs. 1. 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 Findings appear advanced in nature. Etiology of this condition is unknown. 2. No electrodiagnostic evidence is noted for lumbosacral radiculopathy.
== END ==
PROVIDERS: PCP Family Medicine; Referring Provider Podiatrist; Visit Provider Podiatrist
DX: M79.671 Pain in right foot (principal); R20.0 Anesthesia of skin; G62.9 Polyneuropathy, unspecified
CPT/HCPCS: 95886; 95913

== ENCOUNTER → 2020-11-09 13:45 | Outpatient (CLI) | payer MEDICARE, OTHER, SELFPAY ==
[2020-06-16 08:00] VITALS: BMI 27.9
--- NOTE | 2020-11-09 13:47 | ART_ITS ---
Reason For Study: Peripheral neuropathy Procedure A bilateral lower extremity continuous wave Doppler with analog waveform analysis,segmental pressures,and ankle brachial indexes without exercise. Left Segmental Pressures Left brachial= 138mmHg. Left calf = 180mmHg. Left posterior tibial artery = 105mmHg. Left dorsalis pedis artery = 128mmHg. Left digit = 71 mmHg. The left dorsalis pedis waveforms are biphasic. The left posterior tibial artery waveforms are biphasic. Right Segmental Pressures Right brachial= 137mmHg. Right posterior tibial artery = 84mmHg. Right dorsalis pedis artery = >254mmHg. Right digit = 88 mmHg. The right dorsalis pedis waveforms are biphasic. The right posterior tibial artery waveforms are biphasic. Indices The right ankle brachial index by the dorsalis pedis is NC. The right ankle brachial index by the posterior tibial artery is 0.61. The right digital-brachial index is 0.64. The left ankle brachial index by the dorsalis pedis is 0.93. The left ankle brachial index by the posterior tibial artery is 0.76. The left digital-brachial index is 0.51. VL/Lower Ext Art Exam w/o Exercis Interpretation Summary Moderately severe bilateral lower extremity arterial occlusive disease consiste nt with the patient's diminished ankle-brachial indices and biphasic Doppler waveforms. Abnormal bilateral digital brachial indices Ordering Physician: Naun Kaur Referring Physician: Sajan Rowley MD Performed By: Windy Landry RVT
== END ==
PROVIDERS: PCP Family Medicine; Referring Provider Podiatrist; Visit Provider Podiatrist
DX: I73.89 Other specified peripheral vascular diseases (principal); G62.9 Polyneuropathy, unspecified
CPT/HCPCS: 93923

== ENCOUNTER → 2021-01-08 11:26 | Outpatient (CLI) | payer MEDICARE, OTHER, SELFPAY ==
[2020-06-16 08:00] VITALS: BMI 27.9
[2021-01-08 15:07] LABS: Absolute Lymphocyte Count 0.78 X10^3/uL (0.83-4.51); Absolute Neutrophil Count 11.6 X10^3/uL (2.0-7.7); Basophil# 0.03 X10^3/uL; Basophil% 0.2 % (0-1); Eosinophil# 0.05 X10^3/uL; Eosinophils% 0.4 % (0-5); Hematocrit 45.4 % (40-54); Hemoglobin 14.7 g/dL (13.0-16.5); Lymphocyte # 0.78 X10^3/ul (0.83-4.51); Lymphocyte % 5.7 % (19-41); Mean Corp Hgb Conc 32.4 g/dL (32-36); Mean Corpuscular Hgb 31.8 pg (27.0-32.0); Mean Corpuscular Volume 98.3 fL (80-94); Mean Platelet Vol. 10.4 fl (6.2-12.0); Monocyte% 8.7 % (0-10); NRBC Flagged by Analyzer 0 % (0-5); Neutrophil # 11.61 X10^3/uL (2.7-7.7); Neutrophil % 84.6 % (47-70); Platelet Count 250 K/mm3 (150-450); RBC Distribution Width CV 14.2 % (11.6-14.6); RBC Distribution Width SD 51.7 fl (35.1-43.9); Red Blood Count 4.62 M/mm3 (4.6-6.2); White Blood Count 13.7 K/mm3 (4.4-11.0)
[2021-01-08 15:24] LABS: ALB/GLOB Ratio 0.9 RATIO (0.9-2.4); AST(SGOT) 53 U/L (15-37); Alanine Aminotransfer ALT/SGPT 49 U/L (16-61); Albumin, Serum 3.7 g/dL (3.2-5.0); Alkaline Phosphatase 96 U/L (45-117); Anion Gap 8 (5-15); BUN 20 mg/dL (7-18); BUN/Creat Ratio 17.5 RATIO (10-20); Calcium,Total 8.8 mg/dL (8.5-10.1); Chloride 108 mmol/L (98-107); Creatinine, Serum 1.14 mg/dL (0.70-1.30); EST Glomerular Filtration Rate 66 mL/min (>60); Est Glom Filt Rate - Afr Amer 80 mL/min (>60); Globulin 4.1 g/dL (2.2-4.2); Glucose 177 mg/dL (74-106); Lipase 11918 U/L (73-393); Potassium 3.8 mmol/L (3.5-5.1); Protein, Total 7.8 g/dL (6.4-8.2); Sodium Level 141 mmol/L (136-145)
== END ==
PROVIDERS: Family Medicine; PCP Family Medicine; Visit Provider Family Medicine
DX: R10.9 Unspecified abdominal pain (principal)
CPT/HCPCS: 36415; 80053; 83690; 85025

== ENCOUNTER → 2021-01-08 12:40 | Outpatient (CLI) | payer MEDICARE, OTHER, SELFPAY ==
[2020-06-16 08:00] VITALS: BMI 27.9
--- NOTE | 2021-01-08 12:43 | CT_ITS ---
STUDY: CT ABDOMEN AND PELVIS WITH CONTRAST REASON FOR EXAM: Male, 80 years old. Abdominal pain RADIATION DOSAGE (If Supplied By Facility): CTDIvol = ( 14.77 ) mGy, DLP = ( 804.55 ) mGycm TECHNIQUE: Transaxial images were obtained from the dome of the diaphragm to the symphysis pubis with oral contrast. IV 100ML ISOVUE 300 was administered. Sagittal and coronal images were reconstructed. Individualized dose optimization techniques were used for this CT. COMPARISON: 10/21/2015 FINDINGS: The visualized lung bases are unremarkable. The visualized portions of the heart are within normal limits. Small amount of free fluid surrounding the liver and in the pelvis. Normal liver. There is non-visualization of the gallbladder, which may be secondary to either contraction or a prior cholecystectomy. Normal spleen. Normal pancreas. Normal bilateral adrenal glands. Multiple bilateral nonobstructing renal stones. There is moderate cortical atrophy of the left kidney, consistent with chronic medical renal disease. Normal visualized stomach. Wall thickening and surrounding fluid and stranding of surrounding fat of the second and third portions duodenum suggestive of duodenitis or possibly pancreatitis. Small diverticulum of the second portion the duodenum. There are multiple colonic diverticula consistent with diverticulosis. The appendix is visualized and appears normal. Normal abdominal aorta. Normal inferior vena cava. Normal retroperitoneum. Normal urinary bladder. Normal abdominal wall. Normal osseous structures. CT/Abdomen/Pelvis WITH Contrast IMPRESSION: Suspect duodenitis or less likely pancreatitis with surrounding free fluid but no abscess or perforation. Electronically Signed: David Stanford MD at 16:10 EDT Tel , Service support ,
== END ==
PROVIDERS: PCP Family Medicine; Referring Provider Family Medicine; Visit Provider Family Medicine
DX: R10.9 Unspecified abdominal pain (principal)
CPT/HCPCS: 74177; Q9967

== ENCOUNTER 2021-01-08 16:05 | Inpatient (IN) | payer MEDICARE, OTHER, SELFPAY ==
[2020-06-16 08:00] VITALS: BMI 27.9
[2021-01-08 16:06] VITALS: BP 148/74; PULSE 108; RESP 16; TEMP 36.2; O2SAT 93; BMI 27.6
--- NOTE | 2021-01-08 16:29 | ED.VIS.GI ---
HPI HPI - GI History of Present Illness Chief Complaint: Abd Pain Informant: patient Abdominal Pain/Flank Pain Onset: Yesterday Context: Sudden Onset Timing: Continuous Quality: Aching and Sharp Location: Epigastric, RUQ and LUQ Worsened by: Nothing Relieved by: Nothing Nausea/Vomiting/Emesis GI Symptom: Negative for Nausea and Vomiting Diarrhea/Melena/Hematochezia GI Symptom: Negative for Diarrhea, Melena and Hematochezia Associated Symptoms Associated Symptoms: Negative for Dysuria and Hematuria Narrative Narrative: Patient presents with abdominal pain that began yesterday. Patient states it began rather suddenly yesterday afternoon. Patient states it has been constant. Patient describes his pain is sharp and aching. Patient states the pain is over his upper abdomen. Patient states nothing makes it better or worse. Patient denies any nausea or vomiting. Patient denies any diarrhea, melena, or hematochezia. Patient denies any urinary complaints. Patient had outpatient labs drawn earlier today by his primary care physician which showed an elevated lipase. Patient also had outpatient CT scan done today which showed pancreatitis. [facility] Medical History (Updated 01/08/21 @ 16:[address] Amauri Chang, ) Arthritis Atherosclerosis of coronary artery of [place] heart without angina pectoris Cataracts, bilateral Diabetes mellitus Essential (primary) hypertension Former smoker Gangrenous cholecystitis Gout Hearing problem Hyperlipemia Kidney stones Melanoma in situ of left upper extremity Neuropathy Nonhealing surgical wound Open wound of left forearm Personal history of malignant melanoma Screening for colon cancer Stenosis of right carotid artery Vascular disease Vision problems Home Medications acetaminophen 500 mg PO Q6H PRN PRN 01/01/14 [History Last Taken Unknown] gemfibrozil 600 mg PO DAILY 01/01/14 [History Last Taken 10/21/15 07:00] allopurinol 300 mg PO DAILY 10/21/15 [History Last Taken 10/21/15] pantoprazole 40 mg PO DAILY 10/21/15 [History Last Taken 06/10/19] levothyroxine 50 mcg capsule 50 mcg PO DAILY 05/22/18 [History Last Taken 06/10/19] Lactobacillus acidophilus 500 million cell-fructooligosac 50 mg tablet 1 tab PO BID #30 tab 01/28/19 [Rx Last Taken Unknown] amlodipine 10 mg tablet 10 mg PO DAILY 05/21/19 [History Last Taken 06/10/19] aspirin 81 mg tablet,delayed release 81 mg PO DAILY 06/03/19 [History Last Taken 06/10/19] cholecalciferol (vitamin D3) 25 mcg (1,000 unit) capsule 25 mcg PO DAILY 06/16/20 [History Last Taken Unknown] cyanocobalamin (vitamin B-12) 1,000 mcg capsule 1,000 mcg PO DAILY 06/16/20 [History Last Taken Unknown] glimepiride 2 mg tablet 2 mg PO DAILY tab 06/16/20 [History Last Taken Unknown] lisinopril 40 mg tablet 40 mg PO DAILY #90 tab 06/16/20 [Rx Last Taken Unknown] omega-3 fatty acids 1,000 mg capsule 1,000 mg PO BID 06/16/20 [History Last Taken Unknown] Allergy/AdvReac Type Severity Reaction Status Date / Time atorvastatin calcium AdvReac body aches Verified 01/08/21 16:05 [From Lipitor] ezetimibe [From Zetia] AdvReac body aches Verified 01/08/21 16:05 rosuvastatin calcium AdvReac body aches Verified 01/08/21 16:05 [From Crestor] Family History Father Diabetes Hypertension High cholesterol Brother High cholesterol Other Arthritis Heart disease Surgical History 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) History of left heart catheterization (06/10/19) Status post laparoscopic cholecystectomy Social History Smoking Status: Former smoker alcohol intake: never substance use type: does not use additional social history: DOES NOT USE ASPIRIN DOES NOT USE IBUPROFEN ROS ROS ED Constitutional Constitutional ED: Denies chills or fever(s) Eyes Eyes: Denies blurry vision or change in vision ENT ENT ED: Denies rhinorrhea or sore throat Cardiovascular Cardiovascular: Denies chest pain or palpitations Respiratory/Chest Respiratory/Chest: Denies cough or dyspnea Gastrointestinal Gastrointestinal: Reports abdominal pain; Denies nausea or vomiting Genitourinary Genitourinary ED: Denies dysuria or hematuria Musculoskeletal Musculoskeletal: Reports back pain; Denies neck pain Integumentary Denies abscess or rash Neurologic Neurologic: Denies headache(s) or weakness Allergic/Immunologic Allergic/Immunologic ED: Denies mouth swelling or urticaria EXAM Physical Exam Const Vital Signs: 01/08/21 16:06 Temperature 97.1 F L Temperature Source Temporal Pulse Rate 108 H Respiratory Rate 16 Blood Pressure 148/74 H Blood Pressure Mean 98 Pulse Ox 93 Oxygen Delivery Method Room Air Positive well nourished and well developed General Appearance ED: well developed HEENT Reports moist mucous membranes Neck supple and no JVD Resp normal respiratory effort and clear to auscultation bilaterally Cardio regular rate, regular rhythm and no murmurs GI normal to inspection, nondistended, normoactive bowel sounds Palpation: soft and tender epigastric, LUQ and RUQ; Negative for guarding or rebound tenderness present Extremity normal to inspection General Extremety ED: Negative for edema or tenderness General Extremity: Negative for edema Neuro oriented x3, CN's II-XII intact bilaterally and no sensory deficits noted Sensorium / Orientation: alert Motor Exam: strength 5/5 throughout Psych mental status grossly normal Skin no rashes or lesions noted MDM MDM MDM Narrative Medical decision making narrative: Patient has outpatient labs drawn earlier today which showed a white blood cell count of 13.7. Comprehensive metabolic profile was essentially within normal limits. Lipase was elevated at 11,918. CT scan of the abdomen pelvis was obtained as an outpatient prior to arrival. There is evidence of duodenitis and pancreatitis. There is no perforation or abscess. There is no pseudocyst. This was interpreted by the radiologist. Patient was given IV fluids and morphine here. Case was discussed with the hospitalist. He will admit the patient to his service. Patient understood and was agreeable with the plan. All questions were answered. Treatment and Re-Evaluation Vital Sign Attestation:: Vital signs were reviewed prior to admission. They are stable. Discharge Plan Dx/Rx/DC Orders Clinical Impression: Acute pancreatitis Disposition Disposition: Acute Care Hospital [facility]
[2021-01-08] MEDS: Ondansetron 4 MG/2 ML Vial IV ×2 (16:54→18:04)
[2021-01-08] MEDS: 0.9% Normal Saline 1,000 ML 1000 ML IV (16:54)
--- NOTE | 2021-01-08 16:55 | NURSING ---
MED SURG [place] ACUTE PANCREATITIS
[2021-01-08] MEDS: Morphine 4 MG/ML Syringe IV (16:56)
[2021-01-08 17:00] VITALS: O2SAT 88
[2021-01-08 17:03] VITALS: BP 158/87; PULSE 85; RESP 20; TEMP 36.8; O2SAT 92
[2021-01-08 17:47] VITALS: BMI 27.6
[2021-01-08] MEDS: 0.9% Normal Saline 1,000 ML 150 ML IV ×2 (18:00→22:32)
[2021-01-08 18:06] LABS: Bedside Glucose 150 mg/dL (70-110)
[2021-01-08 18:09] VITALS: BP 151/84; PULSE 84; RESP 18; TEMP 37.7; O2SAT 93
--- NOTE | 2021-01-08 18:41 | PCM.HP.STD ---
HPI - General General Date of Admission: 01/08/21 Date of Service: 01/08/21 Chief Complaint: Abdominal pain HPI Narrative GIA VIRAMONTES, is a 80 M who presents to the emergency room at [facility] [place] with chief complaint of abdominal pain, this started yesterday and is diffuse. Patient denies any diarrhea, fever, or chills. Patient underwent an outpatient CAT scan today which showed evidence of pancreatitis. Patient had outpatient labs drawn earlier today also by his primary care physician which showed elevated lipase. Labs in the emergency room showed an extremely elevated lipase at 11,918, liver enzymes except for a slightly elevated AST were unremarkable. Patient CBC showed an elevated white blood cell count at 13.7. Patient will be admitted to [place] [address], IV fluids will be administered and IV pain medications will be given, patient will be on clear liquid diet, the etiology of the patient's pancreatitis is unknown at this time. [facility] Medical History (Updated 01/08/21 @ 18:26 by Una Alarcon) Arthritis Atherosclerosis of coronary artery of [place] heart without angina pectoris Cataracts, bilateral Diabetes mellitus Essential (primary) hypertension Former smoker Gangrenous cholecystitis Gout Hearing problem Hyperlipemia Hypothyroidism Kidney stones Melanoma in situ of left upper extremity Neuropathy Nonhealing surgical wound Open wound of left forearm Personal history of malignant melanoma Screening for colon cancer Stenosis of right carotid artery Vascular disease Vision problems Home Medications gemfibrozil 600 mg PO BID 01/01/14 [History Last Taken 01/08/21] allopurinol 300 mg PO DAILY 10/21/15 [History Last Taken 01/08/21] pantoprazole 40 mg PO DAILY 10/21/15 [History Last Taken 01/08/21] amlodipine 10 mg tablet 10 mg PO DAILY 05/21/19 [History Last Taken 01/08/21] aspirin 81 mg tablet,delayed release 81 mg PO DAILY 06/03/19 [History Last Taken 01/08/21] cholecalciferol (vitamin D3) 25 mcg (1,000 unit) capsule 25 mcg PO DAILY 06/16/20 [History Last Taken 01/07/21] cyanocobalamin (vitamin B-12) 1,000 mcg capsule 1,000 mcg PO DAILY 06/16/20 [History Last Taken 01/07/21] glimepiride 2 mg tablet 2 mg PO DAILY tab 06/16/20 [History Last Taken 01/08/21] lisinopril 40 mg tablet 40 mg PO DAILY #90 tab 06/16/20 [Rx Last Taken 01/08/21] omega-3 fatty acids 1,000 mg capsule 2,000 mg PO BID 06/16/20 [History Last Taken 01/08/21] diphenhydramine-acetaminophen [Acetaminophen PM] 1 - 2 tab PO QHS PRN 01/08/21 [History Last Taken 01/07/21 23:00] levothyroxine 50 mcg PO DAILY 01/08/21 [History Last Taken 01/08/21] Allergy/AdvReac Type Severity Reaction Status Date / Time atorvastatin calcium AdvReac body aches Verified 01/08/21 16:05 [From Lipitor] ezetimibe [From Zetia] AdvReac body aches Verified 01/08/21 16:05 rosuvastatin calcium AdvReac body aches Verified 01/08/21 16:05 [From Crestor] Family History Father Diabetes Hypertension High cholesterol Brother High cholesterol Other Arthritis Heart disease Surgical History 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) History of left heart catheterization (06/10/19) Status post laparoscopic cholecystectomy Social History Smoking Status: Former smoker alcohol intake: never substance use type: does not use additional social history: DOES NOT USE ASPIRIN DOES NOT USE IBUPROFEN ROS Constitutional Constitutional: Denies anorexia, change in weight, chills, fatigue, fever(s), malaise, night sweats or weakness Eyes Eyes: Denies blurry vision, change in eye color, change in vision or discharge from eye(s) ENT HEENT: Denies abnormal hearing, dysphagia, ear pain, epistaxis or headache(s) Cardiovascular Cardiovascular: Denies chest pain, claudication, dyspnea on exertion, edema or lightheadedness Respiratory/Chest Respiratory/Chest: Denies cough, dyspnea, excessive phlegm production, hemoptysis, productive cough or wheezing Gastrointestinal Gastrointestinal: Reports abdominal pain; Denies coffee ground emesis, constipation, diarrhea, dyspepsia, hematemesis, hematochezia, melena, nausea or vomiting Genitourinary Genitourinary: Denies burning urination, difficulty urinating, dysuria or hematuria Musculoskeletal Musculoskeletal: Denies arthralgias, back pain or joint pain Neurologic Neurologic: Denies abnormal gait, abnormal speech, confusion, disequilibrium or dizziness Psychiatric Psychiatric: Denies anxiety, depression, homicidal ideation or suicidal ideation Endocrine Endocrinology: Denies change in body appearance or cold intolerance Hematologic/Lymphatic Hematologic/Lymphatic: Denies anemia, easy bleeding or easy bruising Vital Signs Vital Signs Vital Signs: 01/08/21 16:06 01/08/21 17:00 01/08/21 17:03 Temperature 97.1 F L 98.2 F Temperature Source Temporal Oral Pulse Rate 108 H 85 Respiratory Rate 16 20 H Respiratory Effort Respiratory Depth Respiratory Pattern Blood Pressure 148/74 H 158/87 H Blood Pressure Mean 98 110 Blood Pressure Source Blood Pressure Position Blood Pressure Location Pulse Ox 93 88 92 Oxygen Delivery Method Room Air Room Air Nasal Cannula Oxygen Flow Rate (L/min) 3 01/08/21 18:09 01/08/21 18:29 Temperature 99.9 F H Temperature Source Temporal Pulse Rate 84 Respiratory Rate 18 Respiratory Effort Normal Respiratory Depth Normal Respiratory Pattern Normal Blood Pressure 151/84 H Blood Pressure Mean 106 Blood Pressure Source Monitor Blood Pressure Position Semi-Fowlers Blood Pressure Location Right Arm Pulse Ox 93 Oxygen Delivery Method Nasal Cannula Nasal Cannula Oxygen Flow Rate (L/min) 2 3 Weight Weight: 92.4 kg Body Mass Index (BMI) 27.6 Physical Exam Const alert, oriented x3, no apparent distress, healthy appearing and well nourished General Appearance: cooperative, well kempt and well developed Orientation / Consciousness: awake, oriented to person, oriented to place and oriented to time HEENT normocephalic, head/scalp atraumatic, hearing grossly normal bilaterally and moist oral mucous membranes Eyes PERRL, EOMs intact bilaterally and conjunctivae normal Neck nuchal rigidity, supple, no JVD, thyroid normal and no carotid bruits General: trachea midline Resp normal respiratory effort, no retractions, no use of accessory muscles and clear to auscultation bilaterally Auscultation: Negative for rales, rhonchi or wheezes Cardio regular rate, regular rhythm, S1 normal heart sound, S2 normal heart sound, no murmurs, no rub and no gallops GI Auscultation: hypoactive bowel sounds Palpation: tender other (Neurolysed abdominal tenderness is noted to palpation, no rebound abdominal tenderness was noted) Extremity normal to inspection and no clubbing, cyanosis or edema Skin no rashes or lesions noted, no wounds and skin turgor normal General Skin Exam: no breakdown Neuro oriented x3, CN's II-XII intact bilaterally, no focal motor deficits and no sensory deficits noted Sensorium / Orientation: awake and alert Speech: speech normal Psych thought process normal and affect normal Results Lab / Micro Data Labs: Laboratory Results - last 24 hr 01/08/21 17:55 POC Glucose 150 H Assessment & Plan Assessment/Plan (1) Acute pancreatitis: PLAN: 1. Acute pancreatitis-etiology unclear at this point, patient will be admitted to [place] [address] and be given IV fluids, labs will be rechecked tomorrow #2 essential hypertension #3 type 2 diabetes-patient's blood sugars will be monitored, patient will be given sliding scale insulin per protocol #4 hypothyroidism #5 hyperlipidemia-I will perform a lipid profile on the patient in the morning Charges/Coding Visit Charges Inpatient E&M: 04061 Init Hosp L3
[2021-01-08 21:11] VITALS: BP 146/69; PULSE 99; RESP 17; TEMP 37.3; O2SAT 94
[2021-01-08] MEDS: 0.9% Saline Lock 10 ML Syringe IV (22:22)
[2021-01-08] MEDS: Heparin Injection (Vial) 5,000 UNIT/ML VIAL 5000 UNIT SC (22:22)
[2021-01-08] MEDS: Gemfibrozil 600 MG Tablet PO (22:24)
[2021-01-08] MEDS: oxyCODONE 5 MG Tablet 10 MG PO (22:26)
[2021-01-08] MEDS: Temazepam 15 MG Capsule PO (22:27)
[2021-01-09] VITALS (12 sets, daily range): BP systolic 126–155; BP diastolic 53–76; PULSE 88–98; RESP 16–20; TEMP 36.9–37.6; O2SAT 3–96
[2021-01-09] MEDS: Ondansetron 4 MG/2 ML Vial IV ×2 (00:07→05:31)
[2021-01-09] MEDS: 0.9% Saline Lock 10 ML Syringe IV (00:08)
[2021-01-09 00:16] LABS: Bedside Glucose 156 mg/dL (70-110)
[2021-01-09] MEDS: 0.9% Normal Saline 1,000 ML 150 ML IV (05:27)
--- NOTE | 2021-01-09 05:30 | NURSING ---
Upon entering pt's room his O2 was off. Checked SpO2 on room air, was at 80%. Reapplied pt's O2 and turned to 2L. Rechecked after 10 minutes, was at 90%. Had pt perform deep breathing to get to 92%
[2021-01-09] MEDS: Levothyroxine 50 MCG Tablet PO (05:31)
[2021-01-09 05:51] LABS: Bedside Glucose 113 mg/dL (70-110)
[2021-01-09 07:42] LABS: Absolute Lymphocyte Count 1.35 X10^3/uL (0.83-4.51); Absolute Neutrophil Count 15.3 X10^3/uL (2.0-7.7); Basophil# 0.06 X10^3/uL; Basophil% 0.3 % (0-1); Eosinophil# 0.07 X10^3/uL; Eosinophils% 0.4 % (0-5); Hematocrit 43.9 % (40-54); Lymphocyte # 1.35 X10^3/ul (0.83-4.51); Lymphocyte % 7.3 % (19-41); Mean Corp Hgb Conc 31.9 g/dL (32-36); Mean Corpuscular Hgb 31.6 pg (27.0-32.0); Mean Corpuscular Volume 99.1 fL (80-94); Monocyte# 1.71 X10^3/uL; Monocyte% 9.2 % (0-10); NRBC Flagged by Analyzer 0 % (0-5); Neutrophil # 15.26 X10^3/uL (2.7-7.7); Neutrophil % 82.2 % (47-70); POSITIVE DIFFERENTIAL YES; Platelet Count 221 K/mm3 (150-450); RBC Distribution Width CV 14.4 % (11.6-14.6); Red Blood Count 4.43 M/mm3 (4.6-6.2); White Blood Count 18.6 K/mm3 (4.4-11.0)
[2021-01-09 07:46] LABS: Differential Indicated SCAN CRITERIA MET
[2021-01-09 08:05] LABS: Anion Gap 9 (5-15); BUN 15 mg/dL (7-18); BUN/Creat Ratio 14.4 RATIO (10-20); Calcium,Total 7.9 mg/dL (8.5-10.1); Chloride 108 mmol/L (98-107); Cholesterol 148 mg/dL (200); Creatinine, Serum 1.04 mg/dL (0.70-1.30); EST Glomerular Filtration Rate 73 mL/min (>60); Est Glom Filt Rate - Afr Amer 89 mL/min (>60); Estimated Creatinine Clearance 63.22 ml/min; Glucose 130 mg/dL (74-106); High Density Lipoprotein 44 mg/dL; Potassium 3.7 mmol/L (3.5-5.1); Sodium Level 142 mmol/L (136-145); Triglycerides 116 mg/dL; Very Low Density Lipoprotein 23 mg/dL (5-40)
[2021-01-09] MEDS: Pantoprazole Sodium 40 MG Tablet PO (08:23)
[2021-01-09] MEDS: Lisinopril 40 MG Tablet PO (08:23)
[2021-01-09] MEDS: Aspirin E.C. 81 MG Tablet PO (08:23)
[2021-01-09] MEDS: Gemfibrozil 600 MG Tablet PO ×2 (08:23→22:27)
[2021-01-09] MEDS: oxyCODONE 5 MG Tablet 10 MG PO (08:24)
[2021-01-09] MEDS: Heparin Injection (Vial) 5,000 UNIT/ML VIAL 5000 UNIT SC ×2 (08:24→22:26)
[2021-01-09] MEDS: amLODIPine 10 MG Tablet PO (08:24)
--- NOTE | 2021-01-09 11:08 | CASEMGMT ---
RADHA FINNEGAN assessment: Face to Face with patient for initial transition planning/care coordination assessment. RADHA FINNEGAN introduced self and role at [facility], pt voices understanding and consents to assessment. Pt is sitting up in chair in no distress on 4L nc. Pt is A/Ox4 and answers all questions appropriately. Care providers, pharmacy, and demographics verified. Presentation: Abd pain, had CT/labwork, sent by PCP for pancreatitis Admitting dx: Pancreatitis PCP: Amrik Specialists: Héctor [facility] Marybel Pharmacy: [facility] Insurance: [facility] A/B, [employer] Prescription Benefit: [employer] Living Will/HPOA: Pt has LW/HPOA and is aware they are on file at [facility]. Pt's , Ashwin Velasco, is HPOA. LNOK: Ashwin Velasco, Living Arrangements: Pt states lives with in 1 story home with basement and states no concerns at home. Pt states is independent with ADL's. Transportation: Pt states drives self and states no transportation concerns. DME/HHC: Pt states has the following DME: cane, tub bench, and grab bars. Pt states no preference for DME company after provided verbal list of local providers and green sheet left on chart for possible home oxygen need. Pt states no hx of SNF but has had HHC in the past. Pt states no concerns with going home at time of discharge. Pt is retired. Pt states does not smoke cigarettes or drink ETOH. Pt states no further concerns/needs. CM to follow for home oxygen need and any further discharge planning/needs. Advised pt to ask for CM if any further questions/concerns/needs arise, voices understanding. Pt Goal: Home Plan[place] RADHA FINNEGAN
[2021-01-09 11:51] LABS: Bedside Glucose 133 mg/dL (70-110)
--- NOTE | 2021-01-09 12:05 | RAD_ITS ---
HISTORY: hypoxia EXAMINATION/TECHNIQUE: XR Chest 2 Views: 2 views COMPARISON: 06/03/19 FINDINGS: LINES/DEVICES: None. LUNGS: Low lung volumes with bibasilar subsegmental atelectasis. No pulmonary consolidation, mass, or edema. No pleural effusion or pneumothorax. MEDIASTINUM AND CARDIOVASCULAR STRUCTURES: Cardiac silhouette not enlarged. Stable CABG changes. Central airways and mediastinal contour are unremarkable. BONES AND SOFT TISSUES: No acute bony abnormalities. RAD/Chest PA and Lateral IMPRESSION: No radiographic evidence of acute cardiopulmonary disease. at 1349 Reported and signed by: Aleksandr Valverde MD Electronically Signed: Aleksandr Valverde MD at 13:48 EDT Tel , Service support ,
--- NOTE | 2021-01-09 14:38 | CT_ITS ---
HISTORY: hypoxia EXAMINATION: CTA Chest WO/W Contrast Injection TECHNIQUE: Helically acquired images were obtained of the chest following IV contrast as per pulmonary angiogram protocol with 3D reconstructions. A radiation dose optimization technique was used for this scan. IV Contrast dosage and agent: 100mL [id number]-[id number] COMPARISON: None FINDINGS: LUNGS, PLEURA AND LARGE AIRWAYS: Bibasilar consolidations with trace pleural effusions. No masses or suspicious nodules. THYROID: No thyroid lesions. PULMONARY ARTERIES: Normal in caliber. No pulmonary embolism. AORTA AND GREAT VESSELS: No aneurysm or dissection. HEART AND PERICARDIUM: Cardiomegaly. No pericardial effusion. No signs of right heart strain. MEDIASTINUM AND THOMAS: No mediastinal or hilar adenopathy. Esophagus is unremarkable. No hiatal hernia. UPPER ABDOMEN: Trace ascites. Diffuse hepatic steatosis BONES: No acute or aggressive abnormality. CT/CTA Chest W/WO Contrast IMPRESSION: Negative CTA Chest. Bibasilar consolidations with trace pleural effusions. Findings suspicious for pneumonia. Cardiomegaly. Individualized dose optimization techniques were used for this CT. at 1706 Reported and signed by: Aleksandr Valverde MD Electronically Signed: Aleksandr Valverde MD at 17:05 EDT Tel , Service support ,
--- NOTE | 2021-01-09 15:10 | NURSING ---
pt resting in bed, upon nurse walking into room. pt does not have his oxygen on, instead it is laying beside him on the bed. reinforced needing to have oxygen on.
[2021-01-09 16:50] LABS: Bedside Glucose 145 mg/dL (70-110)
--- NOTE | 2021-01-09 17:43 | PN.HOSP_ITS ---
Subjective Subjective Patient was seen and examined today, he remains on supplemental oxygen, made decision today to stop the patient's fluids and observe the patient for further worsening of abdominal pain. Patient states that his abdomen feels much better today. However he did chest x-ray on the patient today which did not show any acute process, I then ordered a CTA of the chest to rule out any evidence of pulmonary emboli, there is no evidence of pulmonary embolism but there were bibasilar consolidations that were suspicious for pneumonia. Due to the patient's elevated white count, I have decided to place the patient on oral antibiotic. Objective Data Objective Data Vital Signs: Vital Signs Temp Pulse Resp BP Pulse Ox 99.5 F H 98 18 126/53 H 96 01/09/21 15:15 01/09/21 15:15 01/09/21 15:15 01/09/21 15:15 01/09/21 15:47 Oxygen Flow Rate (L/min) 4 Oxygen Delivery Method Nasal Cannula Weight: 92.4 kg Body Mass Index (BMI) 27.6 Intake & Output: Intake and Output for Last 24 Hours 01/07/21 01/08/21 01/09/21 23:59 23:59 23:59 Intake Total 2390 / 2390 2647.5 / 2647.5 Output Total 350 / 350 550 / 550 Balance 2040 / 2040 2097.5 / 2097.5 Lab / Micro Data Result Diagrams: 01/09/21 07:05 01/09/21 07:05 Labs: Laboratory Results - last 24 hr 01/08/21 01/09/21 01/09/21 17:55 00:04 05:39 WBC RBC Hgb Hct MCV MCH MCHC RDW Std Deviation RDW Coeff of Yan Plt Count MPV Immature Gran % (Auto) Neut % (Auto) Lymph % (Auto) [place] % (Auto) Eos % (Auto) Baso % (Auto) Absolute Neuts (auto) Absolute Lymphs (auto) Nucleated RBC % Diff Path Review Sodium Potassium Chloride Carbon Dioxide Anion Gap BUN Creatinine Estim Creat Clear Calc Est GFR (MDRD) Af Amer Est GFR (MDRD) Non-Af BUN/Creatinine Ratio Glucose Calcium Triglycerides Cholesterol LDL Cholesterol VLDL Cholesterol HDL Cholesterol POC Glucose 150 H 156 H 113 H 01/09/21 01/09/21 01/09/21 07:05 07:05 11:41 WBC 18.6 H RBC 4.43 L Hgb 14.0 Hct 43.9 MCV 99.1 H MCH 31.6 MCHC 31.9 L RDW Std Deviation 52.0 H RDW Coeff of Yan 14.4 Plt Count 221 MPV 10.0 Immature Gran % (Auto) 0.600 Neut % (Auto) 82.2 H Lymph % (Auto) 7.3 L [place] % (Auto) 9.2 Eos % (Auto) 0.4 Baso % (Auto) 0.3 Absolute Neuts (auto) 15.3 H Absolute Lymphs (auto) 1.35 Nucleated RBC % 0 [address] Path Review May foll Sodium 142 Potassium 3.7 Chloride 108 H Carbon Dioxide 25.0 Anion Gap 9 BUN 15 Creatinine 1.04 Estim Creat Clear Calc 63.22 Est GFR (MDRD) Af Amer 89 Est GFR (MDRD) Non-Af 73 BUN/Creatinine Ratio 14.4 Glucose 130 H Calcium 7.9 L Triglycerides 116 Cholesterol 148 LDL Cholesterol 81 VLDL Cholesterol 23 HDL Cholesterol 44 POC Glucose 133 H 01/09/21 16:44 WBC RBC Hgb Hct MCV MCH MCHC RDW Std Deviation RDW Coeff of Yan Plt Count MPV Immature Gran % (Auto) Neut % (Auto) Lymph % (Auto) [place] % (Auto) Eos % (Auto) Baso % (Auto) Absolute Neuts (auto) Absolute Lymphs (auto) Nucleated RBC % Diff Path Review Sodium Potassium Chloride Carbon Dioxide Anion Gap BUN Creatinine Estim Creat Clear Calc Est GFR (MDRD) Af Amer Est GFR (MDRD) Non-Af BUN/Creatinine Ratio Glucose Calcium Triglycerides Cholesterol LDL Cholesterol VLDL Cholesterol HDL Cholesterol POC Glucose 145 H Radiography Diagnostic Testing: Radiology Impression Chest X-Ray 01/09/21 12:05 IMPRESSION: No radiographic evidence of acute cardiopulmonary disease. at 1349 Reported and signed by: Aleksandr Valverde MD Electronically Signed: Aleksandr Valverde MD at 13:48 EDT Tel , Service support , Chest CTA 01/09/21 14:38 IMPRESSION: Negative CTA Chest. Bibasilar consolidations with trace pleural effusions. Findings suspicious for pneumonia. Cardiomegaly. Individualized dose optimization techniques were used for this CT. at 1706 Reported and signed by: Aleksandr Valverde MD Electronically Signed: Aleksandr Valverde MD at 17:05 EDT Tel , Service support , Physical Exam Const alert, oriented x3, no apparent distress and average body habitus HEENT head/scalp atraumatic and moist oral mucous membranes Head and Scalp: normocephalic Eyes PERRL, EOMs intact bilaterally and conjunctivae normal Resp normal respiratory effort Resp Narrative: Decreased breath sounds are noted over the bases bilaterally Cardio regular rate, regular rhythm, S1 normal heart sound, S2 normal heart sound, no rub, no gallops and no clicks GI normal to inspection, nondistended, normoactive bowel sounds, soft to palpation and non-distended Extremity normal to inspection Skin no rashes or lesions noted, no wounds and skin turgor normal Neuro oriented x3, CN's II-XII intact bilaterally and no focal motor deficits Sensorium / Orientation: awake Psych affect normal Assessment & Plan Assessment/Plan (1) Acute pancreatitis: PLAN: 1. Acute pancreatitis-etiology unclear at this point, patient will be admitted to [place] [address] and be given IV fluids, labs will be rechecked tomorrow #2 Bibasilar community-acquired pneumonia present on admission-patient was placed on Levaquin 500 mg p.o. daily starting today #3 Hypoxia secondary to bibasilar community acquired pneumonia-patient's pulse ox will be monitored #4 hypothyroidism #5 hyperlipidemia-patient's lipid profile showed a normal triglyceride level and normal cholesterol. #6 essential hypertension #7 type 2 diabetes-patient's blood sugars will be monitored, sliding scale insulin will be used as needed Charges/Coding Visit Charges Inpatient E&M: 20604 Subs Hosp L2
[2021-01-09] MEDS: levoFLOXacin 500 MG Tablet PO (19:58)
[2021-01-09] MEDS: Insulin Lispro 100 UNIT/ML INSULN.PEN SC (22:29)
[2021-01-09 22:31] LABS: Bedside Glucose 151 mg/dL (70-110)
[2021-01-10] VITALS (7 sets, daily range): BP systolic 126–153; BP diastolic 66–98; PULSE 86–100; RESP 18; TEMP 36.7–36.9; O2SAT 93–95
[2021-01-10] MEDS: oxyCODONE 5 MG Tablet 10 MG PO ×4 (03:47→22:28)
[2021-01-10] MEDS: levoFLOXacin 500 MG Tablet PO (06:44)
[2021-01-10] MEDS: Levothyroxine 50 MCG Tablet PO (06:44)
[2021-01-10 06:50] LABS: Bedside Glucose 149 mg/dL (70-110)
[2021-01-10] MEDS: Aspirin E.C. 81 MG Tablet PO (08:56)
[2021-01-10] MEDS: Lisinopril 40 MG Tablet PO (08:56)
[2021-01-10] MEDS: Heparin Injection (Vial) 5,000 UNIT/ML VIAL 5000 UNIT SC ×2 (08:56→22:11)
[2021-01-10] MEDS: Gemfibrozil 600 MG Tablet PO ×2 (08:57→22:11)
[2021-01-10] MEDS: amLODIPine 10 MG Tablet PO (08:57)
[2021-01-10] MEDS: Pantoprazole Sodium 40 MG Tablet PO (08:57)
[2021-01-10] MEDS: Insulin Lispro 100 UNIT/ML INSULN.PEN SC ×3 (12:15→22:15)
[2021-01-10 12:21] LABS: Bedside Glucose 203 mg/dL (70-110)
[2021-01-10] MEDS: Furosemide 20 MG/2 ML VIAL IV (12:53)
[2021-01-10 13:10] LABS: BNP,B-Type NATRIURETIC PEPTIDE 135.5 pg/mL (0-100)
--- NOTE | 2021-01-10 14:34 | PCM.PN.HOSP ---
Subjective Subjective Patient was seen and examined today, I talked with his family members who were in the room at the time of my examination, he still requiring 4 L of oxygen at rest, I obtained a beta natruretic peptide today which was slightly elevated at 135, I decided to give the patient 1 dose of IV Lasix for now, I have ordered an echocardiogram for tomorrow and I will have pulmonary medicine see the patient in the morning. Objective Data Objective Data Vital Signs: Vital Signs Temp Pulse Resp BP Pulse Ox 98.0 F 100 18 148/98 H 94 01/10/21 09:00 01/10/21 09:00 01/10/21 09:00 01/10/21 09:00 01/10/21 09:00 Oxygen Flow Rate (L/min) 4 Oxygen Delivery Method Nasal Cannula Weight: 92.4 kg Body Mass Index (BMI) 27.6 Intake & Output: Intake and Output for Last 24 Hours 01/08/21 01/09/21 01/10/21 23:59 23:59 23:59 Intake Total 2390 / 2390 2647.5 / 2647.5 Output Total 350 / 350 1850 / 1850 400 / 400 Balance 2040 / 2040 797.5 / 797.5 -400 / -400 Lab / Micro Data Result Diagrams: 01/09/21 07:05 01/09/21 07:05 Labs: Laboratory Results - last 24 hr 01/09/21 01/09/21 01/10/21 16:44 22:23 06:43 B-Natriuretic Peptide POC Glucose 145 H 151 H 149 H 01/10/21 01/10/21 12:14 12:45 B-Natriuretic Peptide 135.5 H POC Glucose 203 H Radiography Diagnostic Testing: Radiology Impression Chest CTA 01/09/21 14:38 IMPRESSION: Negative CTA Chest. Bibasilar consolidations with trace pleural effusions. Findings suspicious for pneumonia. Cardiomegaly. Individualized dose optimization techniques were used for this CT. at 1706 Reported and signed by: Aleksandr Valverde MD Electronically Signed: Aleksandr Valverde MD at 17:05 EDT Tel , Service support , Physical Exam Const alert, oriented x3, no apparent distress, average body habitus and healthy appearing HEENT head/scalp atraumatic and moist oral mucous membranes Head and Scalp: normocephalic Eyes PERRL, EOMs intact bilaterally and conjunctivae normal Resp normal respiratory effort, no retractions, no use of accessory muscles and clear to auscultation bilaterally Cardio regular rate, regular rhythm, S1 normal heart sound, S2 normal heart sound, no gallops and no clicks GI soft to palpation, non-tender and non-distended Auscultation: hypoactive bowel sounds Extremity normal to inspection and full ROM Skin no rashes or lesions noted, no wounds, skin turgor normal and no jaundice Neuro oriented x3, CN's II-XII intact bilaterally and no sensory deficits noted Sensorium / Orientation: awake and alert Motor Exam: strength 5/5 throughout Psych affect normal Assessment & Plan Assessment/Plan (1) Acute pancreatitis: PLAN: Assessment: #1 acute pancreatitis-this seems to have resolved at this time, the exact etiology of the acute pancreatitis is unknown. #2 hypoxia-this may be as a result of diastolic congestive heart failure (or systolic congestive heart failure), patient was hypoxic on admission to the emergency room for evaluation, I have ordered an echocardiogram, pulmonary medicine to see the patient, and I gave the patient 1 dose of IV Lasix. Patient is not getting any supplemental fluids at this time #3 coronary artery disease #4 hyperlipidemia #5 essential hypertension Charges/Coding Visit Charges Inpatient E&M: 16037 Subs Hosp L2
--- NOTE | 2021-01-10 15:25 | ECHOCS_ITS ---
Reason For Study: Dyspnea/SOB Procedure This was a 2D Doppler, Color Flow transthoracic echocardiogram. The study was technically difficult. Contrast injection was performed. Exam performed portable in patient room. Left Ventricle Normal LV size. Mild concentric left ventricular hypertrophy. Left ventricular systolic function is normal. The estimated ejection fraction is 60 %. No evidence for diastolic dysfunction. No regional wall motion abnormalities noted. Right Ventricle Normal RV size. Normal systolic function. Atria The left atrium is mildly enlarged. Normal right atrium. Positive agitated saline contrast study for right to left interatrial shunt compatible with a PFO versus ASD. Mitral Valve There is no mitral annular calcification. Normal mitral valve. Trivial mitral valve insufficiency. Tricuspid Valve Normal tricuspid valve. Moderate (2+) tricuspid valve insufficiency. Right ventricular systolic pressure estimated to be 41 mmHg. Aortic Valve Trisinus/trileaflet aortic valve. Mild diffuse aortic valve thickening. Moderate focal aortic valve calcification. Pulmonic Valve The pulmonic valve is not well visualized. Great Vessels Normal sized aortic root. Pericardium/Pleural No pericardial effusion. Medication Diluted definity 2ml given slow IV push to enhance endocardial definition. Performed a rapid injection of agitated mix of 9 cc saline and 1cc air to assess for atrial septal defect. MMode/2D Measurements & Calculations LVIDd: 4.2 cm IVSd: 1.4 cm Ao root diam: 3.7 cm LVIDs: 2.8 cm LVPWd: 1.3 cm LA dimension: 4.5 cm FS: 33.8 % LAV(MOD-bp): 68.3 ml LA A4 area: 22.9 cm2 RA A4 area: 17.2 cm2 LAV(MOD-bp) Indexed: 31.9 ml/m2 LAV(MOD-sp2): 57.9 ml LAV(MOD-sp4): 75.6 ml Time Measurements MV dec time: 0.22 sec Doppler Measurements & Calculations MV E max scottie: 64.8 cm/sec Lat Peak E' Scottie: 11.2 cm/sec MV V2 max: 81.5 cm/sec MV A max scottie: 94.2 cm/sec E/E' lat: 5.8 MV max P.7 mmHg MV E/A: 0.69 MV V2 mean: 49.2 cm/sec MV mean P.1 mmHg MV V2 VTI: 16.9 cm MV P1/2t max scottie: 68.3 cm/sec Ao V2 max: 146.4 cm/sec LV V1 max: 78.3 cm/sec MV P1/2t: 72.2 msec Ao max P.6 mmHg LV V1 max P.5 mmHg MV dec slope: 277.1 cm/sec2 MVA(P1/2t): 3.0 cm2 PA V2 max: 148.3 cm/sec TR max scottie: 306.6 cm/sec TR max P.6 mmHg ECHO/Echo Complete W/ Contrast Interpretation Summary The study was technically difficult. Contrast injection was performed. Left ventricular systolic function is normal. The estimated ejection fraction is 60 %. Mild concentric left ventricular hypertrophy. The left atrium is mildly enlarged. Trivial mitral valve insufficiency. Moderate (2+) tricuspid valve insufficiency. Mild diffuse aortic valve thickening. Moderate focal aortic valve calcification. Right ventricular systolic pressure estimated to be 41 mmHg. No evidence for diastolic dysfunction. Positive agitated saline contrast study for right to left interatrial shunt com patible with a PFO versus ASD. Ordering Physician: Lio Garcia Referring Physician: Sajan Rowley MD Performed By: Silvio Brownlee RCS
[2021-01-10 17:31] LABS: Bedside Glucose 159 mg/dL (70-110)
[2021-01-10] MEDS: Temazepam 15 MG Capsule PO (22:28)
[2021-01-10 22:35] LABS: Bedside Glucose 185 mg/dL (70-110)
[2021-01-11] VITALS (10 sets, daily range): BP systolic 107–131; BP diastolic 57–76; PULSE 90–100; RESP 18–20; TEMP 36.6–37.1; O2SAT 84–96
[2021-01-11] MEDS: Levothyroxine 50 MCG Tablet PO (06:10)
[2021-01-11] MEDS: levoFLOXacin 500 MG Tablet PO (06:11)
[2021-01-11 06:21] LABS: Bedside Glucose 118 mg/dL (70-110)
[2021-01-11 06:39] LABS: Absolute Lymphocyte Count 1.31 X10^3/uL (0.83-4.51); Absolute Neutrophil Count 9.7 X10^3/uL (2.0-7.7); Basophil# 0.03 X10^3/uL; Basophil% 0.2 % (0-1); Eosinophil# 0.11 X10^3/uL; Eosinophils% 0.9 % (0-5); Hematocrit 37.1 % (40-54); Hemoglobin 12.2 g/dL (13.0-16.5); Lymphocyte # 1.31 X10^3/ul (0.83-4.51); Lymphocyte % 10.6 % (19-41); Mean Corp Hgb Conc 32.9 g/dL (32-36); Mean Corpuscular Hgb 31.4 pg (27.0-32.0); Mean Corpuscular Volume 95.6 fL (80-94); Mean Platelet Vol. 9.9 fl (6.2-12.0); Monocyte# 1.05 X10^3/uL; Monocyte% 8.5 % (0-10); NRBC Flagged by Analyzer 0 % (0-5); Neutrophil # 9.72 X10^3/uL (2.7-7.7); Neutrophil % 79.1 % (47-70); Platelet Count 225 K/mm3 (150-450); RBC Distribution Width CV 13.7 % (11.6-14.6); RBC Distribution Width SD 48.4 fl (35.1-43.9); Red Blood Count 3.88 M/mm3 (4.6-6.2); White Blood Count 12.3 K/mm3 (4.4-11.0)
[2021-01-11 06:57] LABS: ALB/GLOB Ratio 0.6 RATIO (0.9-2.4); AST(SGOT) 38 U/L (15-37); Alanine Aminotransfer ALT/SGPT 32 U/L (16-61); Albumin, Serum 2.5 g/dL (3.2-5.0); Alkaline Phosphatase 97 U/L (45-117); Amylase 51 U/L (25-115); Anion Gap 10 (5-15); BUN 21 mg/dL (7-18); BUN/Creat Ratio 18.3 RATIO (10-20); Calcium,Total 8.7 mg/dL (8.5-10.1); Chloride 106 mmol/L (98-107); Creatinine, Serum 1.15 mg/dL (0.70-1.30); EST Glomerular Filtration Rate 65 mL/min (>60); Est Glom Filt Rate - Afr Amer 79 mL/min (>60); Estimated Creatinine Clearance 57.17 ml/min; Globulin 4.5 g/dL (2.2-4.2); Glucose 132 mg/dL (74-106); Lipase 137 U/L (73-393); Potassium 3.4 mmol/L (3.5-5.1); Sodium Level 138 mmol/L (136-145)
[2021-01-11] MEDS: Aspirin E.C. 81 MG Tablet PO (07:34)
[2021-01-11] MEDS: 0.9% Saline Lock 10 ML Syringe IV ×3 (09:20→18:02)
[2021-01-11] MEDS: Potassium Chloride Oral Tablet 20 MEQ 40 MEQ PO (09:25)
[2021-01-11] MEDS: Heparin Injection (Vial) 5,000 UNIT/ML VIAL 5000 UNIT SC ×2 (09:26→21:36)
[2021-01-11] MEDS: amLODIPine 10 MG Tablet PO (09:27)
[2021-01-11] MEDS: Lisinopril 40 MG Tablet PO (09:27)
[2021-01-11] MEDS: Pantoprazole Sodium 40 MG Tablet PO (09:27)
[2021-01-11] MEDS: Gemfibrozil 600 MG Tablet PO ×2 (09:27→21:36)
--- NOTE | 2021-01-11 10:01 | EX.PCM.CONCC ---
Assessment & Plan Assessment/Plan (1) Acute pancreatitis: PLAN: RECOMMENDATIONS: 1. Diuretic challenge 2. Await echocardiogram 3. Walking oximetry prior to discharge 4. Outpatient work-up with complete PFT IMPRESSIONS: 1. Acute hypoxic respiratory insufficiency Patient with new supplemental oxygen requirements, but no mechanical ventilation has been required. Patient does have acute pancreatitis with increases vascular permeability that may have led to some pulmonary edema. Review of the CTA on presentation is more suggestive of compressive atelectasis. However, patient is now achieving almost 2 L on incentive spirometer without coughing making this unlikely. Echocardiogram has been ordered and there is some concern for an element of CHF complicating situation. Labs are suggestive that pancreatitis is much improved compared to previous. Will give a diuretic challenge and reassess. 2. Acute pancreatitis This appears to be significantly improved compared to previous. Abdominal exam is relatively benign. This can lead to an element of distributive shock, but patient is not currently on supplemental fluids. 3. Coronary artery disease/diabetes mellitus/advanced age/hyperlipidemia/history of melanoma/peripheral vascular disease Complicates care, management, recovery and prognosis. Okay to continue with baseline medications from my perspective. Patient does have a smoking history, so an element of COPD may be present. This has to be evaluated as an outpatient with pulmonary function testing. HPI Consult Data Date of Consult: 01/11/21 HPI Narrative HPI Narrative: GIA VIRAMONTES is a 80 M, with past medical history listed below, who presented to [facility] on 01/08/2021 secondary to acute onset of abdominal pain. Patient had reported acute onset of abdominal pain the day prior to presentation that came on suddenly and was constant. This was described as sharp and achy and epigastric region radiating to the right upper quadrant. Patient was unable to report anything making it better or worse and denied any associated nausea or vomiting. Patient did not reported any diarrhea, melena, hematochezia or hematemesis. Patient did not have any urinary complaints. Patient had an outpatient work-up and was noted to have pancreatitis by labs and CT criteria. In the ER, patient was afebrile, but hypertensive at 148/74. Patient was saturating 93% on room air at that time. ER staff noted tenderness of the abdomen, but no findings suggestive of an acute abdomen. Patient was noted to have duodenitis and pancreatitis without abscess or perforation. Patient was given IV fluids and morphine and admitted to the hospital for further evaluation. Over the course of patient's hospitalization, patient did require supplemental oxygen. Patient states that he is only required supplemental oxygen following open heart surgery previously. Patient does report a smoking history, but has never had a pulmonary function test or seen a buttonhole tacker previously. Patient does not use an inhaler at baseline. Patient denies any emesis or aspiration prior to hospitalization. Patient states he has been using his incentive spirometer and routinely gets approximately 1700 cc without the need to cough. Review of systems otherwise negative from a constitutional, HEENT, respiratory, cardiovascular, GI, genitourinary, musculoskeletal, skin, neurologic, psychiatric and hematologic system unless stated above. [facility] Medical History (Updated 01/08/21 @ 18:26 by Una Alarcon) Arthritis Atherosclerosis of coronary artery of [place] heart without angina pectoris Cataracts, bilateral Diabetes mellitus Essential (primary) hypertension Former smoker Gangrenous cholecystitis Gout Hearing problem Hyperlipemia Hypothyroidism Kidney stones Melanoma in situ of left upper extremity Neuropathy Nonhealing surgical wound Open wound of left forearm Personal history of malignant melanoma Screening for colon cancer Stenosis of right carotid artery Vascular disease Vision problems Home Medications gemfibrozil 600 mg PO BID 01/01/14 [History Last Taken 01/08/21] allopurinol 300 mg PO DAILY 10/21/15 [History Last Taken 01/08/21] pantoprazole 40 mg PO DAILY 10/21/15 [History Last Taken 01/08/21] amlodipine 10 mg tablet 10 mg PO DAILY 05/21/19 [History Last Taken 01/08/21] aspirin 81 mg tablet,delayed release 81 mg PO DAILY 06/03/19 [History Last Taken 01/08/21] cholecalciferol (vitamin D3) 25 mcg (1,000 unit) capsule 25 mcg PO DAILY 06/16/20 [History Last Taken 01/07/21] cyanocobalamin (vitamin B-12) 1,000 mcg capsule 1,000 mcg PO DAILY 06/16/20 [History Last Taken 01/07/21] glimepiride 2 mg tablet 2 mg PO DAILY tab 06/16/20 [History Last Taken 01/08/21] lisinopril 40 mg tablet 40 mg PO DAILY #90 tab 06/16/20 [Rx Last Taken 01/08/21] omega-3 fatty acids 1,000 mg capsule 2,000 mg PO BID 06/16/20 [History Last Taken 01/08/21] diphenhydramine-acetaminophen [Acetaminophen PM] 1 - 2 tab PO QHS PRN 01/08/21 [History Last Taken 01/07/21 23:00] levothyroxine 50 mcg PO DAILY 01/08/21 [History Last Taken 01/08/21] Allergy/AdvReac Type Severity Reaction Status Date / Time atorvastatin calcium AdvReac body aches Verified 01/08/21 16:05 [From Lipitor] ezetimibe [From Zetia] AdvReac body aches Verified 01/08/21 16:05 rosuvastatin calcium AdvReac body aches Verified 01/08/21 16:05 [From Crestor] Family History Father Diabetes Hypertension High cholesterol Brother High cholesterol Other Arthritis Heart disease Surgical History 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) History of left heart catheterization (06/10/19) Status post laparoscopic cholecystectomy Social History Smoking Status: Former smoker alcohol intake: never substance use type: does not use additional social history: DOES NOT USE ASPIRIN DOES NOT USE IBUPROFEN ROS ROS Narrative See HPI Physical Exam Const alert, oriented x3 and no apparent distress Constitutional Narrative: Patient was noted to be 84% on room air challenge. General Appearance: cooperative and well developed HEENT normocephalic, head/scalp atraumatic and moist oral mucous membranes Eyes PERRL and EOMs intact bilaterally Neck full ROM and no lymphadenopathy Chest inspection of chest normal Resp normal respiratory effort and no use of accessory muscles Effort and Inspection: able to speak in complete sentences Auscultation: clear to auscultation bilaterally; Negative for rales, rhonchi or wheezes Percussion: Negative for dullness Cardio regular rate, regular rhythm, S1 normal heart sound, S2 normal heart sound, no murmurs, no rub and no gallops GI normal to inspection, nondistended, normoactive bowel sounds no CVA tenderness Extremity no clubbing, cyanosis or edema Skin no rashes or lesions noted Neuro oriented x3, CN's II-XII intact bilaterally, moves all extremities and no focal motor deficits Psych cooperative and affect normal Lab / Micro Data Result Diagrams: 01/11/21 06:35 01/11/21 06:35 Labs: Laboratory Results - last 24 hr 01/10/21 01/10/21 01/10/21 12:14 12:45 17:24 WBC RBC Hgb Hct MCV MCH MCHC RDW Std Deviation RDW Coeff of Yan Plt Count MPV Immature Gran % (Auto) Neut % (Auto) Lymph % (Auto) [place] % (Auto) Eos % (Auto) Baso % (Auto) Absolute Neuts (auto) Absolute Lymphs (auto) Nucleated RBC % Sodium Potassium Chloride Carbon Dioxide Anion Gap BUN Creatinine Estim Creat Clear Calc Est GFR (MDRD) Af Amer Est GFR (MDRD) Non-Af BUN/Creatinine Ratio Glucose Calcium Total Bilirubin AST ALT Alkaline Phosphatase B-Natriuretic Peptide 135.5 H Total Protein Albumin Globulin Albumin/Globulin Ratio Amylase Lipase POC Glucose 203 H 159 H 01/10/21 01/11/21 01/11/21 22:14 06:12 06:35 WBC 12.3 H RBC 3.88 L Hgb 12.2 L Hct 37.1 L MCV 95.6 H MCH 31.4 MCHC 32.9 RDW Std Deviation 48.4 H RDW Coeff of Yan 13.7 Plt Count 225 MPV 9.9 Immature Gran % (Auto) 0.700 Neut % (Auto) 79.1 H Lymph % (Auto) 10.6 L [place] % (Auto) 8.5 Eos % (Auto) 0.9 Baso % (Auto) 0.2 Absolute Neuts (auto) 9.7 H Absolute Lymphs (auto) 1.31 Nucleated RBC % 0 Sodium Potassium Chloride Carbon Dioxide Anion Gap BUN Creatinine Estim Creat Clear Calc Est GFR (MDRD) Af Amer Est GFR (MDRD) Non-Af BUN/Creatinine Ratio Glucose Calcium Total Bilirubin AST ALT Alkaline Phosphatase B-Natriuretic Peptide Total Protein Albumin Globulin Albumin/Globulin Ratio Amylase Lipase POC Glucose 185 H 118 H 01/11/21 06:35 WBC RBC Hgb Hct MCV MCH MCHC RDW Std Deviation RDW Coeff of Yan Plt Count MPV Immature Gran % (Auto) Neut % (Auto) Lymph % (Auto) [place] % (Auto) Eos % (Auto) Baso % (Auto) Absolute Neuts (auto) Absolute Lymphs (auto) Nucleated RBC % Sodium 138 Potassium 3.4 L Chloride 106 Carbon Dioxide 22.0 Anion Gap 10 BUN 21 H Creatinine 1.15 Estim Creat Clear Calc 57.17 Est GFR (MDRD) Af Amer 79 Est GFR (MDRD) Non-Af 65 BUN/Creatinine Ratio 18.3 Glucose 132 H Calcium 8.7 Total Bilirubin 1.40 H AST 38 H ALT 32 Alkaline Phosphatase 97 B-Natriuretic Peptide Total Protein 7.0 Albumin 2.5 L Globulin 4.5 H Albumin/Globulin Ratio 0.6 L Amylase 51 Lipase 137 POC Glucose Charges/Coding Visit Charges Inpatient E&M: 92460 Init Hosp L2
[2021-01-11] MEDS: Furosemide 40 MG/4 ML Vial IV ×2 (10:22→18:02)
[2021-01-11 11:56] LABS: Bedside Glucose 169 mg/dL (70-110)
[2021-01-11] MEDS: Insulin Lispro 100 UNIT/ML INSULN.PEN SC ×2 (12:29→17:01)
--- NOTE | 2021-01-11 16:25 | PN.HOSP_ITS ---
Hospitalist Note Subjective Patient seen and examined. HE was having a 2D echo done. He had no complaints and felt very well. He denied any abdominal pain and shortness of breath had improved. Review of systems otherwise negative. He has remained hemodynamically stable. O/E: Vitals: General Appearance : alert, oriented x 3, well developed HEENT atraumatic, normocephalic. moist mucous membranes Tympanic Membrane ED: Yes TM's clear Eyes PERRL and EOMs intact bilaterally Neck supple and no JVD Resp clear to auscultation. no wheezes or crackles. Cardio regular rate, regular rhythm and no murmurs GI non-tender and non-distended, soft, no organomegaly Extremity normal to inspection, moves all extremities spontaneously General Extremity: No edema Neuro CN's II-XII intact bilaterally, moving all limbs spontaneously. Psych mental status grossly normal Skin Lesions: no lesions Assessment and plan #Acute hypoxic respiratory insufficiency * etiology is unclear, but appears to be due to fluid overload. * was on room air at time I reviewed him, but subsequently desaturated to 84%, so required oxygen * CTA of the chest was negative for PE * pulmonology on board * titrate oxygen to maintain sats >90% * breathing treatment with bronchodilators * being diuresed with IV lasix * 2D echo: EF of 60%, with mild concentric LVH and normal LV systolic function; no regional wall motion abnormalities noted. RVSP is 41mmHg. positive bubble study compatible with PFO vs ASD. On aspirin * #Acute pancreatitis: resolved. # CAD s/p CABG; on aspirin and gemfibrozil as well as statin. #Hypertension: On lisinopril and amlodipine. #History of carotid artery stenosis: On aspirin and gemfibrozil. DVT prophylaxis: Lovenox Disposition: For likely discharge home tomorrow. Visit Charges Inpatient E&M: 77671 Subs Hosp L2
[2021-01-11 16:45] LABS: Bedside Glucose 178 mg/dL (70-110)
[2021-01-11] MEDS: oxyCODONE 5 MG Tablet 10 MG PO ×2 (16:59→21:36)
[2021-01-11] MEDS: Temazepam 15 MG Capsule PO (21:36)
[2021-01-11 22:05] LABS: Bedside Glucose 147 mg/dL (70-110)
[2021-01-12 03:30] VITALS: BP 122/72; PULSE 88; RESP 18; TEMP 36.6; O2SAT 95
[2021-01-12] MEDS: levoFLOXacin 500 MG Tablet PO (06:25)
[2021-01-12] MEDS: Insulin Lispro 100 UNIT/ML INSULN.PEN SC ×2 (06:25→11:35)
[2021-01-12] MEDS: Levothyroxine 50 MCG Tablet PO (06:25)
[2021-01-12 06:36] LABS: Bedside Glucose 150 mg/dL (70-110)
[2021-01-12 06:37] LABS: Absolute Lymphocyte Count 0.93 X10^3/uL (0.83-4.51); Absolute Neutrophil Count 6.6 X10^3/uL (2.0-7.7); Basophil# 0.07 X10^3/uL; Basophil% 0.8 % (0-1); Eosinophil# 0.15 X10^3/uL; Eosinophils% 1.7 % (0-5); Hematocrit 38.7 % (40-54); Hemoglobin 12.1 g/dL (13.0-16.5); Lymphocyte # 0.93 X10^3/ul (0.83-4.51); Lymphocyte % 10.5 % (19-41); Mean Corp Hgb Conc 31.3 g/dL (32-36); Mean Corpuscular Hgb 32.1 pg (27.0-32.0); Mean Corpuscular Volume 102.7 fL (80-94); Mean Platelet Vol. 9.9 fl (6.2-12.0); Monocyte# 1.03 X10^3/uL; Monocyte% 11.7 % (0-10); NRBC Flagged by Analyzer 0 % (0-5); Neutrophil # 6.61 X10^3/uL (2.7-7.7); Neutrophil % 74.8 % (47-70); Platelet Count 238 K/mm3 (150-450); RBC Distribution Width SD 52.9 fl (35.1-43.9); Red Blood Count 3.77 M/mm3 (4.6-6.2); White Blood Count 8.8 K/mm3 (4.4-11.0)
[2021-01-12 06:56] LABS: Anion Gap 7 (5-15); BUN 27 mg/dL (7-18); BUN/Creat Ratio 20.1 RATIO (10-20); Calcium,Total 8.9 mg/dL (8.5-10.1); Chloride 104 mmol/L (98-107); Creatinine, Serum 1.34 mg/dL (0.70-1.30); EST Glomerular Filtration Rate 55 mL/min (>60); Est Glom Filt Rate - Afr Amer 66 mL/min (>60); Estimated Creatinine Clearance 49.06 ml/min; Glucose 144 mg/dL (74-106); Potassium 3.5 mmol/L (3.5-5.1); Sodium Level 135 mmol/L (136-145)
--- NOTE | 2021-01-12 08:04 | PCM.PN.INT ---
Assessment & Plan Assessment/Plan (1) Acute pancreatitis: PLAN: RECOMMENDATIONS: 1. Continue diuretics if remains hospitalized 2. Possibly okay to discharge on supplemental oxygen. Defer to hospitalist 3. Walking oximetry prior to discharge 4. Follow-up with nurse practitioner in 2 weeks if discharged for outpatient work-up with complete PFT IMPRESSIONS: 1. Acute hypoxic respiratory insufficiency Patient with new supplemental oxygen requirements, but no mechanical ventilation has been required. Patient did have acute pancreatitis with increases vascular permeability that may have led to some pulmonary edema. Review of the CTA on presentation is more suggestive of compressive atelectasis. However, patient is now achieving almost 2 L on incentive spirometer without coughing making this unlikely. Echocardiogram suggest possible mixing with elevated pulmonary artery pressures. Labs are suggestive that pancreatitis is much improved compared to previous. If remains hospitalized, would continue with diuretic challenge. If discharged, patient should be on appropriate supplemental oxygen and follow-up with nurse practitioner in 2 weeks in our office for a work-up. Unclear if pulmonary hypertension on echocardiogram is secondary to aortic valve calcification, fluid overload from pancreatitis or possible intrinsic pulmonary hypertension. In any effect, diuresis would be appropriate as tolerated by renal function. 2. Acute pancreatitis This appears to be significantly improved compared to previous. Abdominal exam is relatively benign. This can lead to an element of distributive shock, but patient is not currently on supplemental fluids. 3. Coronary artery disease/diabetes mellitus/advanced age/hyperlipidemia/history of melanoma/peripheral vascular disease Complicates care, management, recovery and prognosis. Okay to continue with baseline medications from my perspective. Patient does have a smoking history, so an element of COPD may be present. This has to be evaluated as an outpatient with pulmonary function testing. Subjective Subjective Patient did okay overnight. Patient requesting to go home and states that he was able to ambulate yesterday in the hallway. Patient is still requiring supplemental oxygen to maintain saturations. Patient is not reporting any palpitations, nausea or vomiting. No abdominal pain is reported. Objective Data Objective Data Vital Signs: Vital Signs Temp Pulse Resp BP Pulse Ox 36.6 C 88 18 122/72 H 95 01/12/21 03:30 01/12/21 03:30 01/12/21 03:30 01/12/21 03:30 01/12/21 03:30 Oxygen Flow Rate (L/min) [ 3 AMBULATING with Oxygen #1] Oxygen Flow Rate (L/min) [At 2 REST with Oxygen] Oxygen Flow Rate (L/min) [ 0 AMBULATING on Room Air] Oxygen Flow Rate (L/min) [At 0 REST on Room Air] Oxygen Flow Rate (L/min) 2 Oxygen Delivery Method Nasal Cannula Weight: 92.4 kg Body Mass Index (BMI) 27.6 Intake & Output: Intake and Output for Last 24 Hours 01/10/21 01/11/21 01/12/21 23:59 23:59 23:59 Intake Total 360 / 360 950 / 950 250 / 250 Output Total 1300 / 1300 3275 / 3275 800 / 800 Balance -940 / -940 -2325 / -2325 -550 / -550 Lab / Micro Data Result Diagrams: 01/12/21 06:06 01/12/21 06:06 Labs: Laboratory Results - last 24 hr 01/11/21 01/11/21 01/11/21 11:45 16:28 21:35 WBC RBC Hgb Hct MCV MCH MCHC RDW Std Deviation RDW Coeff of Yan Plt Count MPV Immature Gran % (Auto) Neut % (Auto) Lymph % (Auto) [place] % (Auto) Eos % (Auto) Baso % (Auto) Absolute Neuts (auto) Absolute Lymphs (auto) Nucleated RBC % Sodium Potassium Chloride Carbon Dioxide Anion Gap BUN Creatinine Estim Creat Clear Calc Est GFR (MDRD) Af Amer Est GFR (MDRD) Non-Af BUN/Creatinine Ratio Glucose Calcium POC Glucose 169 H 178 H 147 H 01/12/21 01/12/21 01/12/21 06:06 06:06 06:23 WBC 8.8 RBC 3.77 L Hgb 12.1 L Hct 38.7 L MCV 102.7 H D MCH 32.1 H MCHC 31.3 L RDW Std Deviation 52.9 H RDW Coeff of Yan 14.0 Plt Count 238 MPV 9.9 Immature Gran % (Auto) 0.500 Neut % (Auto) 74.8 H Lymph % (Auto) 10.5 L [place] % (Auto) 11.7 H Eos % (Auto) 1.7 Baso % (Auto) 0.8 Absolute Neuts (auto) 6.6 Absolute Lymphs (auto) 0.93 Nucleated RBC % 0 Sodium 135 L Potassium 3.5 Chloride 104 Carbon Dioxide 24.0 Anion Gap 7 BUN 27 H Creatinine 1.34 H Estim Creat Clear Calc 49.06 Est GFR (MDRD) Af Amer 66 Est GFR (MDRD) Non-Af 55 L BUN/Creatinine Ratio 20.1 H Glucose 144 H Calcium 8.9 POC Glucose 150 H Radiography Diagnostic Testing: Radiology Impression Echocardiogram 01/10/21 15:25 Interpretation Summary The study was technically difficult. Contrast injection was performed. Left ventricular systolic function is normal. The estimated ejection fraction is 60 %. Mild concentric left ventricular hypertrophy. The left atrium is mildly enlarged. Trivial mitral valve insufficiency. Moderate (2+) tricuspid valve insufficiency. Mild diffuse aortic valve thickening. Moderate focal aortic valve calcification. Right ventricular systolic pressure estimated to be 41 mmHg. No evidence for diastolic dysfunction. Positive agitated saline contrast study for right to left interatrial shunt compatible with a PFO versus ASD. Ordering Physician: Lio Garcia Referring Physician: Sajan Rowley MD Performed By: Silvio Brownlee RCS Physical Exam Const alert, oriented x3 and no apparent distress General Appearance: cooperative and well developed HEENT normocephalic, head/scalp atraumatic and moist oral mucous membranes Eyes PERRL and EOMs intact bilaterally Neck full ROM and no lymphadenopathy Chest inspection of chest normal Resp normal respiratory effort and no use of accessory muscles Effort and Inspection: able to speak in complete sentences Auscultation: clear to auscultation bilaterally; Negative for rales, rhonchi or wheezes Percussion: Negative for dullness Cardio regular rate, regular rhythm, S1 normal heart sound, S2 normal heart sound, no murmurs, no rub and no gallops GI normal to inspection, nondistended, normoactive bowel sounds no CVA tenderness Extremity no clubbing, cyanosis or edema Skin no rashes or lesions noted Neuro oriented x3, CN's II-XII intact bilaterally, moves all extremities and no focal motor deficits Psych cooperative and affect normal Charges/Coding Visit Charges Inpatient E&M: 95149 Subs Hosp L2
[2021-01-12 08:13] VITALS: BP 114/75; PULSE 92; RESP 16; TEMP 36.7; O2SAT 92
[2021-01-12] MEDS: Pantoprazole Sodium 40 MG Tablet PO (08:18)
[2021-01-12] MEDS: Heparin Injection (Vial) 5,000 UNIT/ML VIAL 5000 UNIT SC (08:18)
[2021-01-12] MEDS: amLODIPine 10 MG Tablet PO (08:18)
[2021-01-12] MEDS: Lisinopril 40 MG Tablet PO (08:18)
[2021-01-12] MEDS: Aspirin E.C. 81 MG Tablet PO (08:18)
[2021-01-12] MEDS: Gemfibrozil 600 MG Tablet PO (08:18)
[2021-01-12] MEDS: 0.9% Saline Lock 10 ML Syringe IV (08:23)
[2021-01-12] MEDS: Furosemide 40 MG/4 ML Vial IV (08:23)
--- NOTE | 2021-01-12 11:36 | DS.PCM_ITS ---
Providers Date of Admission: 01/08/21 Primary Care Physician: Dr. Fidencio Rowley MD Consultations 01/10/21 15:34 Consult: Surgical Services Director / Pulmonary Medicine Routine Consulting Provider: Pulmonary Medicine josef Dailey Reason for Consult: hypoxia EMERGENT Consult: No MD Notified: Yes Date Notified: 01/10/21 Time Notified: 15:35 Method of Notification: Verbal Reason For Visit: ACUTE PANCREATITIS Diagnosis Discharge Diagnosis (1) Acute pancreatitis: Status: Acute Code(s): K85.90 - Acute pancreatitis without necrosis or infection, unspecified Medications at Discharge Home Medications gemfibrozil 600 mg PO BID 01/01/14 allopurinol 300 mg PO DAILY 10/21/15 pantoprazole 40 mg PO DAILY 10/21/15 amlodipine 10 mg tablet 10 mg PO DAILY 05/21/19 aspirin 81 mg tablet,delayed release 81 mg PO DAILY 06/03/19 cholecalciferol (vitamin D3) 25 mcg (1,000 unit) capsule 25 mcg PO DAILY 06/16/20 cyanocobalamin (vitamin B-12) 1,000 mcg capsule 1,000 mcg PO DAILY 06/16/20 glimepiride 2 mg tablet 2 mg PO DAILY tab 06/16/20 lisinopril 40 mg tablet 40 mg PO DAILY #90 tab 06/16/20 omega-3 fatty acids 1,000 mg capsule 2,000 mg PO BID 06/16/20 diphenhydramine-acetaminophen [Acetaminophen PM] 1 - 2 tab PO QHS PRN 01/08/21 levothyroxine 50 mcg PO DAILY 01/08/21 furosemide 40 mg PO DAILY #30 tab 01/12/21 levofloxacin 500 mg PO DAILY #4 tab 01/12/21 potassium chloride [Klor-Con M20] 20 meq PO DAILY #30 tab 01/12/21 Hospital Course Operations None Procedures 2-D Echocardiogram Summary of Care Provided Minutes Spent on Discharge: 45 Hospital Course: Patient is a 80-year-old male who was admitted through the ED on 01/08/2021 with a complaint of abdominal pain which started the day before admission. Pain was diffuse but he had no associated diarrhea, nausea vomiting fever chills. He had had an outpatient CT scan of the abdomen the day before admission which showed evidence of pancreatitis and labs done also showed elevated lipase of 11,918. WBC was also slightly elevated at 13.7 and liver enzymes showed a slightly elevated AST. He was admitted and managed for acute pancreatitis of unclear etiology. He was hydrated with IV fluids and put on pain medication IV. Hospital course was comp gated by shortness of breath which was thought to be due to fluid overload. Fluids were discontinued and chest x- ray was unremarkable but CT of the chest done was negative for PE but did show bibasilar consolidation suspicious for pneumonia. He was placed on oral Levaquin. Shortness of breath gradually improved but he still did require some oxygen. Pulmonology was consulted. He was also diuresed with IV Lasix. 2D echo done showed EF of 60% with mild concentric left ventricular hypertrophy and mildly enlarged left atrium with 2+ tricuspid valve insufficiency and right ventricular systolic pressure 41 mmHg. Bubble study was positive for right to left interatrial shunt compatible with PFO versus ASD. Patient felt much better and was discharged home on 01/12/2021. Walking pulse ox showed that he didnt require any home oxygen. 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 He has no symptoms with regards to the PFO versus ASD and patient is already on aspirin. Recommend he follows up with his PCP for referral to oracle fusion developer as deemed appropriate. He was discharged with a script for PO levofloxacin 500mg daily x 4 days to complete a 7 day course. Patient seen and examined prior to discharge. He has no complaints and feels well. Review of systems is otherwise negative. Labs and vitals reviewed. Home meds reviewed and reconciled. Physical Exam Const alert, oriented x3, no apparent distress, average body habitus, healthy appearing and well nourished General Appearance: cooperative, comfortable, well kempt and well developed Orientation / Consciousness: awake HEENT normocephalic, head/scalp atraumatic, hearing grossly normal bilaterally and moist oral mucous membranes Eyes PERRL, EOMs intact bilaterally and conjunctivae normal Neck nuchal rigidity, no lymphadenopathy, supple and thyroid normal General: trachea midline Resp normal respiratory effort, no retractions, no use of accessory muscles and clear to auscultation bilaterally Resp Narrative: mildly diminished breath sounds bibasally. Auscultation: Negative for rales, rhonchi or wheezes Cardio regular rate, regular rhythm, S1 normal heart sound, S2 normal heart sound and no murmurs GI normal to inspection, nondistended, normoactive bowel sounds, soft to palpation, non-tender and non-distended Auscultation: hypoactive bowel sounds Palpation: tender other (Neurolysed abdominal tenderness is noted to palpation, no rebound abdominal tenderness was noted) Extremity normal to inspection, full ROM and no clubbing, cyanosis or edema Skin no rashes or lesions noted, no wounds, skin turgor normal and no jaundice General Skin Exam: no breakdown Neuro oriented x3, CN's II-XII intact bilaterally, no focal motor deficits and no sensory deficits noted Sensorium / Orientation: awake and alert Speech: speech normal Motor Exam: strength 5/5 throughout Psych thought process normal and affect normal Weight / BMI Weight Weight: 203 lb 11.314 oz Body Mass Index (BMI) 27.6 ABG / Lab / Microbiology Data Result Diagrams: 01/12/21 06:06 01/12/21 06:06 Laboratory: Laboratory Results - last 24 hr 01/11/21 01/11/21 01/11/21 11:45 16:28 21:35 WBC RBC Hgb Hct MCV MCH MCHC RDW Std Deviation RDW Coeff of Yan Plt Count MPV Immature Gran % (Auto) Neut % (Auto) Lymph % (Auto) [place] % (Auto) Eos % (Auto) Baso % (Auto) Absolute Neuts (auto) Absolute Lymphs (auto) Nucleated RBC % Sodium Potassium Chloride Carbon Dioxide Anion Gap BUN Creatinine Estim Creat Clear Calc Est GFR (MDRD) Af Amer Est GFR (MDRD) Non-Af BUN/Creatinine Ratio Glucose Calcium POC Glucose 169 H 178 H 147 H 01/12/21 01/12/21 01/12/21 06:06 06:06 06:23 WBC 8.8 RBC 3.77 L Hgb 12.1 L Hct 38.7 L MCV 102.7 H D MCH 32.1 H MCHC 31.3 L RDW Std Deviation 52.9 H RDW Coeff of Yan 14.0 Plt Count 238 MPV 9.9 Immature Gran % (Auto) 0.500 Neut % (Auto) 74.8 H Lymph % (Auto) 10.5 L [place] % (Auto) 11.7 H Eos % (Auto) 1.7 Baso % (Auto) 0.8 Absolute Neuts (auto) 6.6 Absolute Lymphs (auto) 0.93 Nucleated RBC % 0 Sodium 135 L Potassium 3.5 Chloride 104 Carbon Dioxide 24.0 Anion Gap 7 BUN 27 H Creatinine 1.34 H Estim Creat Clear Calc 49.06 Est GFR (MDRD) Af Amer 66 Est GFR (MDRD) Non-Af 55 L BUN/Creatinine Ratio 20.1 H Glucose 144 H Calcium 8.9 POC Glucose 150 H Radiography Diagnostic Testing: Radiology Impression Echocardiogram 01/10/21 15:25 Interpretation Summary The study was technically difficult. Contrast injection was performed. Left ventricular systolic function is normal. The estimated ejection fraction is 60 %. Mild concentric left ventricular hypertrophy. The left atrium is mildly enlarged. Trivial mitral valve insufficiency. Moderate (2+) tricuspid valve insufficiency. Mild diffuse aortic valve thickening. Moderate focal aortic valve calcification. Right ventricular systolic pressure estimated to be 41 mmHg. No evidence for diastolic dysfunction. Positive agitated saline contrast study for right to left interatrial shunt compatible with a PFO versus ASD. Ordering Physician: Lio Garcia Referring Physician: Sajan Rowley MD Performed By: Silvio Brownlee RCS D/C Instructions Discharge Diet: Low fat / Low cholesterol and 1800 Calorie Control Diet Discharge Activity: Return to Normal Activity Weight Bearing Status: Weight bearing as tolerated Call your doctor if you observe: Fever of 101 or Higher and Uncontrolled pain Meaningful Use Info Meaningful Use Diagnoses (Choose all that apply): None applicable Discharge Plan Admission Admit Date/Time: 01/08/21 16:54 Primary Reason for Your Visit: acute pancreatitis Attending Provider: Nora Flores Primary Care Provider: Fidencio Rowley Consulting Providers: Ronnie Merida ; Dontrell Carr ; Debi Holguin [employer]OUND [employer]ENCE OFFICER Instructions Patient Instructions: Understanding Pancreatitis, Pancreatitis Acute Dc Additional Instructions / Restrictions: Use oxygen as needed for shortness of breath Discharge Orders/Prescriptions Prescriptions: New furosemide 40 mg tablet 40 mg PO DAILY Qty: 30 RF: 1 potassium chloride [Klor-Con M20] 20 mEq tablet,ER particles/crystals 20 meq PO DAILY Qty: 30 RF: 1 levofloxacin 500 mg tablet 500 mg PO DAILY Qty: 4 RF: 0 Continued amlodipine 10 mg tablet 10 mg PO DAILY RF: 0 glimepiride 2 mg tablet 2 mg PO DAILY RF: 0 omega-3 fatty acids [Fish Oil Concentrate] 1,000 mg capsule 2,000 mg PO BID RF: 0 cyanocobalamin (vitamin B-12) 1,000 mcg capsule 1,000 mcg PO DAILY RF: 0 cholecalciferol (vitamin D3) 25 mcg (1,000 unit) capsule 25 mcg PO DAILY RF: 0 lisinopril 40 mg tablet 40 mg PO DAILY Qty: 90 RF: 3 gemfibrozil 600 MG tablet 600 mg PO BID RF: 0 pantoprazole 40 MG tablet 40 mg PO DAILY RF: 0 allopurinol 300 MG tablet 300 mg PO DAILY RF: 0 levothyroxine 50 mcg tablet 50 mcg PO DAILY RF: 0 diphenhydramine-acetaminophen [Acetaminophen PM] 25-500 mg Tablet 1 - 2 tab PO QHS PRN (Reason: Sleep) RF: 0 aspirin [Adult Aspirin Regimen] 81 mg tablet,delayed release (DR/EC) 81 mg PO DAILY RF: 0 Referrals / Follow Up: Ronnie Merida MD [STAFF PHYSICIAN] - Within 2 Weeks Fidencio Rowley MD [Primary Care Provider] - Within 1 Week Disposition Disposition (needs filled in before D/C Order can be placed): Home, Self Care Charges/Coding Visit Charges Inpatient E&M: 49739 [facility] Hosp
[2021-01-12 12:05] VITALS: O2SAT 91; O2SAT 97
[2021-01-12 12:08] LABS: Pathologist Review Reviewed
[2021-01-12 12:11] LABS: Bedside Glucose 174 mg/dL (70-110)
--- NOTE | 2021-01-14 15:25 | CASEMGMT ---
RADHA FINNEGAN Discharge Follow Up Phone Call: Strata: 4 Call Date: 01/14/21 Discharge Date: 01/12/21 Time of Call: 1524 Duration: <1 min Admitting Dx: acute pancreatitis RADHA FINNEGAN attempted to complete follow up phone call after recent hospitalization. No answer at pt home and no answering machine to leave a message.
== END 2021-01-12 13:20 | disposition home or self-care (01) | DRG 438 ==
LOC: ED 16:53 → MS3 17:05
PROVIDERS: Internal Medicine Critical Care Medicine; Admitting Provider Internal Medicine; Emergency Provider Emergency Medicine; PCP Family Medicine; Visit Provider Student in an Organized Health Care Education/Training Program
DX: K85.90 Acute pancreatitis without necrosis or infection, unspecified (principal); J18.9 Pneumonia, unspecified organism; I10 Essential (primary) hypertension; E11.9 Type 2 diabetes mellitus without complications; I65.29 Occlusion and stenosis of unspecified carotid artery; R09.02 Hypoxemia; E87.70 Fluid overload, unspecified; I25.10 Atherosclerotic heart disease of native coronary artery without angina pectoris; E78.5 Hyperlipidemia, unspecified; E03.9 Hypothyroidism, unspecified; Z85.820 Personal history of malignant melanoma of skin; Z87.891 Personal history of nicotine dependence; Z95.1 Presence of aortocoronary bypass graft; Z79.899 Other long term (current) drug therapy; I07.1 Rheumatic tricuspid insufficiency
CPT/HCPCS: 36415; 71046; 71275; 74177; 80048; 80053; 80061; 82150; 82962; 83690; 83880; 85025; 93306; 97802; 99251; 99284; J7030; Q9957; Q9967; A4216; C8929; G0463; J1940; J2405; J3490

== ENCOUNTER → 2021-02-01 10:06 | Outpatient (CLI) | payer MEDICARE, OTHER, SELFPAY ==
[2021-01-27 07:46] VITALS: BMI 26.3
[2021-02-01 12:20] LABS: Absolute Lymphocyte Count 1.45 X10^3/uL (0.83-4.51); Absolute Neutrophil Count 3.1 X10^3/uL (2.0-7.7); Basophil# 0.04 X10^3/uL; Basophil% 0.7 % (0-1); Eosinophil# 0.41 X10^3/uL; Eosinophils% 7.5 % (0-5); Hematocrit 38.5 % (40-54); Lymphocyte # 1.45 X10^3/ul (0.83-4.51); Lymphocyte % 26.4 % (19-41); Mean Corp Hgb Conc 31.2 g/dL (32-36); Mean Corpuscular Hgb 30.6 pg (27.0-32.0); Mean Corpuscular Volume 98.2 fL (80-94); Mean Platelet Vol. 10.2 fl (6.2-12.0); Monocyte# 0.52 X10^3/uL; Monocyte% 9.5 % (0-10); NRBC Flagged by Analyzer 0 % (0-5); Neutrophil # 3.05 X10^3/uL (2.7-7.7); Neutrophil % 55.4 % (47-70); Platelet Count 223 K/mm3 (150-450); RBC Distribution Width CV 13.9 % (11.6-14.6); RBC Distribution Width SD 48.9 fl (35.1-43.9); Red Blood Count 3.92 M/mm3 (4.6-6.2); White Blood Count 5.5 K/mm3 (4.4-11.0)
[2021-02-01 12:42] LABS: Vitamin B12 589 pg/mL (211-911)
[2021-02-01 12:55] LABS: ALB/GLOB Ratio 0.7 RATIO (0.9-2.4); AST(SGOT) 26 U/L (15-37); Alanine Aminotransfer ALT/SGPT 23 U/L (16-61); Albumin, Serum 3.2 g/dL (3.2-5.0); Alkaline Phosphatase 103 U/L (45-117); Anion Gap 8 (5-15); BUN 31 mg/dL (7-18); BUN/Creat Ratio 19.6 RATIO (10-20); Calcium,Total 9.4 mg/dL (8.5-10.1); Chloride 113 mmol/L (98-107); Creatinine, Serum 1.58 mg/dL (0.70-1.30); EST Glomerular Filtration Rate 45 mL/min (>60); Est Glom Filt Rate - Afr Amer 55 mL/min (>60); Globulin 4.3 g/dL (2.2-4.2); Glucose 262 mg/dL (74-106); Potassium 4.3 mmol/L (3.5-5.1); Protein, Total 7.5 g/dL (6.4-8.2); Sodium Level 145 mmol/L (136-145); Thyroid Stim Hormone (TSH) 1.22 uIU/mL (0.358-3.74)
== END ==
PROVIDERS: PCP Family Medicine; Visit Provider Family Medicine
DX: R53.83 Other fatigue (principal); R42 Dizziness and giddiness
CPT/HCPCS: 36415; 80053; 82607; 84443; 85025

== ENCOUNTER → 2021-02-02 08:42 | Outpatient (CLI) | payer MEDICARE, OTHER, SELFPAY ==
[2021-01-27 07:46] VITALS: BMI 26.3
--- NOTE | 2021-02-03 07:58 | PFT ---
INTRODUCTION: The patient is a 80-year-old male that presents for pulmonary function studies secondary to a diagnosis of dyspnea. Respiratory therapy reports good patient effort. Bronchodilators were used during testing. INTERPRETATION: Forced expiration spirometry demonstrates no evidence of a large airways obstructive ventilatory defect. There was no significant response to aerosolized bronchodilators. Spirograms are of good quality and plateau normally. Body plethysmography was performed and reveals lung volumes to be within normal limits. Diffusing capacity by single breath CO is reduced at 56% of predicted. IMPRESSION: Isolated reduction in diffusing capacity, which could be related to an underlying pulmonary vascular disorder such as pulmonary hypertension.
== END ==
PROVIDERS: PCP Family Medicine; Referring Provider Nurse Practitioner Acute Care; Visit Provider Nurse Practitioner Acute Care
DX: R06.00 Dyspnea, unspecified (principal)
CPT/HCPCS: 94060; 94726; 94729

== ENCOUNTER → 2021-02-04 12:38 | Outpatient (CLI) | payer MEDICARE, OTHER, SELFPAY ==
[2021-01-27 07:46] VITALS: BMI 26.3
[2021-02-04 12:59] VITALS: PULSE 73; PULSE 74; PULSE 76; PULSE 83; PULSE 89; PULSE 90; PULSE 91; O2SAT 89; O2SAT 90; O2SAT 91; O2SAT 92; O2SAT 93; O2SAT 94
--- NOTE | 2021-02-05 07:46 | WT_ITS ---
PSN 6 Minute Walk Test 6 Minute Walk Test 6 Minute Walk Test: 6 Minute Walk Test PSN:6-Minute Walk Test Start: 02/04/21 12:59 Freq: Status: Active Protocol: [id number].[id number] Document 02/04/21 12:59 [facility] (Rec: 02/04/21 13:02 [facility] [id number]) 6 Minute Walk Test Date Performed 02/04/21 Time Performed 12:30 Height 6 ft Weight: 88.904 kg Weight in Pounds 196.[address]: Dbei Holguin [employer] Assistive device used: None Pre-test Oxygen Delivery Method Room Air Pulse Ox (%) 94 Pulse Rate (60-100 beats/min) 73 Dyspnea Braxton Scale (0-10) 0 1st minute Oxygen Delivery Method Room Air Pulse Ox (%) 92 Pulse Rate (60-100 beats/min) 76 Dyspnea Braxton Scale (0-10) 0 Number of Rests Taken 0 2nd minute Oxygen Delivery Method Room Air Pulse Ox (%) 91 Pulse Rate (60-100 beats/min) 83 Dyspnea Braxton Scale (0-10) 1 Number of Rests Taken 0 3rd minute Oxygen Delivery Method Room Air Pulse Ox (%) 90 Pulse Rate (60-100 beats/min) 91 Dyspnea Braxton Scale (0-10) 1 Number of Rests Taken 0 4th minute Oxygen Delivery Method Room Air Pulse Ox (%) 90 Pulse Rate (60-100 beats/min) 89 Dyspnea Braxton Scale (0-10) 1 Number of Rests Taken 0 5th minute Oxygen Delivery Method Room Air Pulse Ox (%) 89 Pulse Rate (60-100 beats/min) 90 Dyspnea Braxton Scale (0-10) 1 Number of Rests Taken 0 6th minute Oxygen Delivery Method Room Air Pulse Ox (%) 90 Pulse Rate (60-100 beats/min) 91 Dyspnea Braxton Scale (0-10) 1 Number of Rests Taken 0 Post-test Oxygen Delivery Method Room Air Pulse Ox (%) 93 Pulse Rate (60-100 beats/min) 74 Dyspnea Braxton Scale (0-10) 0 Full Laps Walked 17 Partial Lap, Number of Tiles Walked 45 Total Distance Walked (ft) 1048 Interpretation Interpretation: The patient ambulated 1048 feet over the course of 6 minutes beginning on room air without assistive devices or breaks. Pretesting oxygen saturation was noted to be 94% on room air. With ambulation, the wendie oxygen saturation was 89% at minute 5 of testing. This represents a significant exertional oxygen desaturation. Recommendations Recommendations: There is no indication for the use of supplemental oxygen at this time. However, close interval follow-up is recommended, given the degree of oxygen desaturation noted during the study.
== END ==
PROVIDERS: PCP Family Medicine; Referring Provider Nurse Practitioner Acute Care; Visit Provider Nurse Practitioner Acute Care
DX: R06.00 Dyspnea, unspecified (principal)
CPT/HCPCS: 94618

== ENCOUNTER → 2021-02-16 15:18 | Outpatient (CLI) | payer MEDICARE, OTHER, SELFPAY ==
[2021-01-27 07:46] VITALS: BMI 26.3
[2021-02-16 18:03] LABS: Anion Gap 10 (5-15); BUN 38 mg/dL (7-18); BUN/Creat Ratio 16.3 RATIO (10-20); Calcium,Total 8.9 mg/dL (8.5-10.1); Chloride 107 mmol/L (98-107); Creatinine, Serum 2.33 mg/dL (0.70-1.30); EST Glomerular Filtration Rate 29 mL/min (>60); Est Glom Filt Rate - Afr Amer 35 mL/min (>60); Glucose 127 mg/dL (74-106); Potassium 4.4 mmol/L (3.5-5.1); Sodium Level 142 mmol/L (136-145)
== END ==
PROVIDERS: PCP Family Medicine; Referring Provider Family Medicine; Visit Provider Family Medicine
DX: K85.90 Acute pancreatitis without necrosis or infection, unspecified (principal)
CPT/HCPCS: 36415; 80048

== ENCOUNTER → 2021-02-18 10:46 | Outpatient (CLI) | payer MEDICARE, OTHER, SELFPAY ==
[2021-01-27 07:46] VITALS: BMI 26.3
[2021-02-18 12:16] LABS: Anion Gap 11 (5-15); BUN 30 mg/dL (7-18); BUN/Creat Ratio 20.1 RATIO (10-20); Calcium,Total 9.2 mg/dL (8.5-10.1); Chloride 108 mmol/L (98-107); Cholesterol 202 mg/dL (200); Creatinine, Serum 1.49 mg/dL (0.70-1.30); EST Glomerular Filtration Rate 48 mL/min (>60); Est Glom Filt Rate - Afr Amer 58 mL/min (>60); Glucose 143 mg/dL (74-106); High Density Lipoprotein 38 mg/dL; Potassium 4.1 mmol/L (3.5-5.1); Sodium Level 142 mmol/L (136-145); Triglycerides 171 mg/dL; Very Low Density Lipoprotein 34 mg/dL (5-40)
== END ==
PROVIDERS: PCP Family Medicine; Visit Provider Family Medicine
DX: E11.40 Type 2 diabetes mellitus with diabetic neuropathy, unspecified (principal)
CPT/HCPCS: 36415; 80048; 80061

== ENCOUNTER → 2021-03-09 09:29 | Outpatient (CLI) | payer MEDICARE, OTHER, SELFPAY ==
[2021-03-09 10:45] LABS: Anion Gap 6 (5-15); BUN 20 mg/dL (7-18); Chloride 110 mmol/L (98-107); EST Glomerular Filtration Rate 77 mL/min (>60); Est Glom Filt Rate - Afr Amer 93 mL/min (>60); Glucose 143 mg/dL (74-106); Potassium 3.4 mmol/L (3.5-5.1); Sodium Level 140 mmol/L (136-145)
[2021-03-11 18:07] LABS: Acetylcholine Receptor Binding < 0.03 nmol/L (0.00-0.24)
== END ==
PROVIDERS: PCP Family Medicine; Visit Provider Ophthalmology
DX: H50.22 Vertical strabismus, left eye (principal)
CPT/HCPCS: 36415; 80048; 84238

== ENCOUNTER → 2021-06-29 09:02 | Outpatient (CLI) | payer MEDICARE, OTHER, SELFPAY ==
--- NOTE | 2021-06-29 09:06 | AAVD_ITS ---
Reason For Study: Stricture of artery Aorta Measurements Aorta Doppler Measurements Proximal aorta measures1.26 x 1.28cm. in cross- Peak systolic flow velocities within the proximal sectional axis. aorta measure 146.2 cm/sec. Proximal aorta measures1.27cm. in longitudinal Peak systolic flow velocities within the mid aorta axis. measure 111 cm/sec. Mid aorta measures1.45 x 1.43cm. in cross- Peak systolic flow velocities within the distal sectional axis. aorta measure 263.9 cm/sec. Mid aorta measures1.47cm. in longitudinal axis. Distal aorta measures1.52 x 1.52cm. in cross- sectional axis. Distal aorta measures1.50cm. in longitudinal axis. Aorta distal, mobile plaque noted. Left Iliac Artery Left iliac artery measures 1.09 x 1.09 cm. in the cross-sectional axis. Left iliac artery measures 0.97 cm. in the longitudinal axis. Peak systolic velocity in the left iliac artery measures 84.4 cm/sec. Right Iliac Artery Right iliac artery measures 0.90 x 0.87 cm. in the cross-sectional axis. Right iliac artery measures 0.92 cm. in the longitudinal axis. Peak systolic velocity in the right iliac artery measures 126 cm/sec. Procedure Aorta IVC Iliac vasculature or bypass grafts 27250. Preliminary report called to Lonnie'tadeo ABDI. Exam performed in department. VL/Abd Aortic/IVC Duplex scan Interpretation Summary No aortic iliac aneurysm. Appears to be a moderate to severe distal aortic sten osis with a velocity at 264. Ordering Physician: Glenn Fleming Referring Physician: Sajan Rowley MD Performed By: Windy Landry RVT
--- NOTE | 2021-06-29 09:06 | ART_ITS ---
Reason For Study: PAD Procedure A bilateral lower extremity continuous wave Doppler with analog waveform analysis and ankle brachial indexes. Left Segmental Pressures Left brachial= 141mmHg. Left posterior tibial artery = 129mmHg. Left dorsalis pedis artery = 152mmHg. Left digit = 106 mmHg. The left dorsalis pedis waveforms are triphasic. The left posterior tibial artery waveforms are biphasic. Right Segmental Pressures Right brachial= 145mmHg. Right posterior tibial artery = 139mmHg. Right dorsalis pedis artery = >254mmHg. Right digit = 106 mmHg. The right dorsalis pedis waveforms are triphasic. The right posterior tibial artery waveforms are biphasic. Indices The right ankle brachial index by the dorsalis pedis is NC. The right ankle brachial index by the posterior tibial artery is 0.96. The right digital-brachial index is 0.73. The left ankle brachial index by the dorsalis pedis is 1.05. The left ankle brachial index by the posterior tibial artery is 0.89. The left digital-brachial index is 0.73. VL/Ankle Brachial Index Interpretation Summary No evidence of significant occlusive disease at rest with bilateral triphasic f low and an JANETH 0.96 and 1.05. Ordering Physician: Glenn Fleming Referring Physician: Sajan Rowley MD Performed By: Windy Landry RVT
--- NOTE | 2021-06-29 09:07 | CDU_ITS ---
Reason For Study: Carotid stenosis Rt. Velocities/BP Lt. Velocities/BP Prox CCA 66.2/12.4 cm/sec. Prox CCA 77.7/12.6 cm/sec. Mid CCA 72.8/12.4 cm/sec. Mid CCA 66.7/16.3 cm/sec. Dist CCA 60.8/10.2 cm/sec. Dist CCA 61.8/9 cm/sec. Prox ICA 200.4/40.2 cm/sec. Prox ICA 78.9/17.6 cm/sec. Mid ICA 79/10.2 cm/sec. Mid ICA 78.9/21.2 cm/sec. Dist ICA 91.2/11.4 cm/sec. Dist ICA 65.4/15.1 cm/sec. Rt. ICA/CCA = 3.03. Lt. ICA/CCA = 1.18. Prox ECA 137.5/6 cm/sec. Prox ECA 87.5/10.2 cm/sec. Rt. Vert. 56.9/13.9 cm/sec. Lt. Vert. 38.8/12.4 cm/sec. Right Extracranial There is homogeneous, smooth atherosclerotic plaque noted in the right common carotid artery. There is heterogeneous, irregular atherosclerotic plaque noted in the right internal carotid artery. There is heterogeneous, irregular atherosclerotic plaque noted in the right external carotid artery. Antegrade flow is noted in the right vertebral artery. Left Extracranial There is homogeneous, smooth atherosclerotic plaque noted in the left common carotid artery. There is heterogeneous, irregular atherosclerotic plaque noted in the left internal carotid artery. There is homogeneous, smooth atherosclerotic plaque noted in the left external carotid artery. Antegrade flow is noted in the left vertebral artery. Procedure Carotid Duplex 37214. This is a Carotid Duplex examination using B-mode, color flow and specral Doppler. Exam performed in department. VL/Carotid Duplex Ultrasound Interpretation Summary Moderate (50-69%) stenosis right extracranial internal carotid. Mild (<50%) shelley nosis left extracranial internal carotid. Flow within the vertebral arteries is antegrade bilaterally. Ordering Physician: Glenn Fleming Referring Physician: Sajan Rowley MD Performed By: Windy Landry RVT
== END ==
PROVIDERS: PCP Family Medicine; Referring Provider Surgery Vascular Surgery; Visit Provider Surgery Vascular Surgery
DX: I65.23 Occlusion and stenosis of bilateral carotid arteries (principal); I73.9 Peripheral vascular disease, unspecified; I77.1 Stricture of artery; I70.0 Atherosclerosis of aorta
CPT/HCPCS: 93880; 93922; 93978

== ENCOUNTER 2021-09-06 13:55 | Outpatient (CLI) | payer MEDICARE, OTHER, SELFPAY ==
[2021-09-06 15:17] LABS: Hematocrit 41.4 % (40-54); Mean Corp Hgb Conc 33.8 g/dL (32-36); Mean Corpuscular Hgb 32.6 pg (27.0-32.0); Mean Corpuscular Volume 96.5 fL (80-94); Mean Platelet Vol. 10.7 fl (6.2-12.0); Platelet Count 195 K/mm3 (150-450); RBC Distribution Width CV 13.3 % (11.6-14.6); RBC Distribution Width SD 47.2 fl (35.1-43.9); Red Blood Count 4.29 M/mm3 (4.6-6.2); White Blood Count 4.9 K/mm3 (4.4-11.0)
[2021-09-06 15:40] LABS: Hemoglobin A1c 9.5 % (3.8-5.6)
[2021-09-06 16:26] LABS: ALB/GLOB Ratio 0.8 RATIO (0.9-2.4); AST(SGOT) 150 U/L (15-37); Alanine Aminotransfer ALT/SGPT 89 U/L (16-61); Albumin, Serum 3.7 g/dL (3.2-5.0); Alkaline Phosphatase 124 U/L (45-117); Anion Gap 10 (5-15); BUN 26 mg/dL (7-18); BUN/Creat Ratio 18.8 RATIO (10-20); Calcium,Total 9.8 mg/dL (8.5-10.1); Chloride 105 mmol/L (98-107); Creatinine, Serum 1.38 mg/dL (0.70-1.30); EST Glomerular Filtration Rate 53 mL/min (>60); Est Glom Filt Rate - Afr Amer 64 mL/min (>60); Globulin 4.6 g/dL (2.2-4.2); Glucose 455 mg/dL (74-106); Protein, Total 8.3 g/dL (6.4-8.2); Sodium Level 138 mmol/L (136-145); T4 Free Direct 0.89 ng/dL (0.76-1.46); Thyroid Stim Hormone (TSH) 1.68 uIU/mL (0.358-3.74); Uric Acid 4.6 mg/dL (3.5-7.2)
[2021-09-06 17:07] LABS: Vitamin B12 763 pg/mL (211-911); Vitamin D,25 Hydroxy 45.6 ng/mL
== END 2021-09-06 23:59 | disposition home or self-care (01) ==
LOC: MFPLAB 13:57
PROVIDERS: PCP Family Medicine; Referring Provider Family Medicine; Visit Provider Family Medicine
DX: Z00.00 Encounter for general adult medical examination without abnormal findings (principal); E11.40 Type 2 diabetes mellitus with diabetic neuropathy, unspecified; E03.9 Hypothyroidism, unspecified; E53.8 Deficiency of other specified B group vitamins; R79.89 Other specified abnormal findings of blood chemistry
CPT/HCPCS: 36415; 80053; 82306; 82607; 83036; 84439; 84443; 84550; 85027

== ENCOUNTER 2021-09-21 14:43 | Outpatient (CLI) | payer MEDICARE, OTHER, SELFPAY ==
[2021-09-22 08:20] LABS: Hepatitis B Surface Antibody Non-Reactive; Hepatitis C Antibody Non-Reactive (Nonreactive)
== END 2021-09-21 23:59 | disposition home or self-care (01) ==
LOC: MTLAB 14:48
PROVIDERS: PCP Family Medicine; Referring Provider Family Medicine; Visit Provider Family Medicine
DX: R79.89 Other specified abnormal findings of blood chemistry (principal)
CPT/HCPCS: 36415; 86706; 86803

== ENCOUNTER 2021-09-23 08:44 | Outpatient (CLI) | payer MEDICARE, OTHER, SELFPAY ==
--- NOTE | 2021-09-23 08:47 | US_ITS ---
STUDY: ABDOMINAL ULTRASOUND - RIGHT UPPER QUADRANT REASON FOR VISIT: Male, 81 years old Elevated LFTS TECHNIQUE: Ultrasound evaluation of the right upper quadrant was performed with real-time and static saba-scale imaging. TECHNICAL QUALITY: Adequate. COMPARISON: Abdomen ultrasound from 10/21/2015 FINDINGS: Liver: The liver measures 15 cm. There is increased echogenicity consistent with fatty infiltration. The bile ducts are within normal limits. There is hepatic color flow. The direction of portal flow is hepatopetal. There is no demonstrated mass lesion. Gallbladder: Cholecystectomy. Common Bile Duct (C.B.D.): The common bile duct measures 4.1 mm. Pancreas: Normal appearance of the head and body. The tail is not visualized due to overlying bowel gas. Right Kidney: Normal size of the right kidney. The right kidney measures 12.4 x 5.0 x 7.0 cm. Normal renal cortex. The right cortex measures 1.8 cm. 0.9 cm nonobstructing calculus in the interpolar region. No cystic or solid mass. There is no right hydronephrosis. US/Abdomen Limited IMPRESSION: 1. 0.9 cm nonobstructing left nephrolithiasis. 2. Diffuse hepatic steatosis. No hepatic masses. Electronically Signed: Isaias Rodriguez, at 11:35 EDT ,
== END 2021-09-23 23:59 | disposition home or self-care (01) ==
LOC: US 08:44
PROVIDERS: PCP Family Medicine; Referring Provider Family Medicine; Visit Provider Family Medicine
DX: R79.89 Other specified abnormal findings of blood chemistry (principal)
CPT/HCPCS: 76705

== ENCOUNTER → 2022-06-03 | Outpatient (CLI) | payer MEDICARE, OTHER, SELFPAY ==
[2022-06-03 12:05] LABS: Vitamin B12 586 pg/mL (211-911)
[2022-06-03 12:22] LABS: AST(SGOT) 70 U/L (15-37); Alanine Aminotransfer ALT/SGPT 53 U/L (16-61); Albumin, Serum 3.8 g/dL (3.2-5.0); Alkaline Phosphatase 118 U/L (45-117); Anion Gap 7 (5-15); BUN 18 mg/dL (7-18); Calcium,Total 9.2 mg/dL (8.5-10.1); Chloride 108 mmol/L (98-107); Cholesterol 209 mg/dL (200); Creatinine, Serum 1.06 mg/dL (0.70-1.30); EST Glomerular Filtration Rate 71 mL/min (>60); Est Glom Filt Rate - Afr Amer 86 mL/min (>60); Globulin 3.8 g/dL (2.2-4.2); Glucose 230 mg/dL (74-106); High Density Lipoprotein 43 mg/dL; Potassium 4.2 mmol/L (3.5-5.1); Protein, Total 7.6 g/dL (6.4-8.2); Sodium Level 142 mmol/L (136-145); Triglycerides 155 mg/dL; Very Low Density Lipoprotein 31 mg/dL (5-40)
== END | disposition home or self-care (01) ==
LOC: MTLAB 10:35
PROVIDERS: PCP Family Medicine; Referring Provider Family Medicine; Visit Provider Family Medicine
DX: E11.40 Type 2 diabetes mellitus with diabetic neuropathy, unspecified (principal)
CPT/HCPCS: 36415; 80053; 80061; 82607

== ENCOUNTER → 2022-06-14 | Outpatient (CLI) | payer MEDICARE, OTHER, SELFPAY ==
--- NOTE | 2022-06-14 12:45 | CT_ITS ---
STUDY: CT BRAIN WITHOUT CONTRAST REASON FOR EXAM: Male, 82 years old. CONFUSION RADIATION DOSAGE (If Supplied By Facility): CTDIvol = ( 44.99 ) mGy, DLP = ( 897.35 ) mGycm TECHNIQUE: Transaxial CT imaging of the brain was performed without administration of intravenous contrast material. Individualized dose optimization techniques were used for this CT. COMPARISON: No relevant priors. FINDINGS: Normal soft tissue structures. Normal calvarium. There is mild cerebral atrophy with widening of the extra-axial spaces and ventricular dilatation. There are areas of decreased attenuation within the white matter tracts of the supratentorial brain, consistent with microvascular disease changes. Normal basal ganglia and thalami. Normal brainstem. Normal cerebellum. There is no intracranial hemorrhage. There are no findings of an acute ischemic infarction. Normal visualized paranasal sinuses. CT/Brain/Head without Contrast IMPRESSION: Chronic involutional changes of the brain. Electronically Signed: Richard Israel MD at 15:45 EST ,
== END | disposition home or self-care (01) ==
LOC: CT 12:44
PROVIDERS: PCP Family Medicine; Referring Provider Family Medicine; Visit Provider Family Medicine
DX: R41.0 Disorientation, unspecified (principal)
CPT/HCPCS: 70450

== ENCOUNTER → 2022-06-15 | Outpatient (CLI) | payer MEDICARE, OTHER, SELFPAY ==
--- NOTE | 2022-06-15 13:06 | ECHOD_ITS ---
Reason For Study: Confusion, dizziness Procedure This was a 2D Doppler, Color Flow transthoracic echocardiogram. Exam performed in department. Left Ventricle Normal LV size. Mild concentric left ventricular hypertrophy. Left ventricular systolic function is normal. The estimated ejection fraction is 55 %. Stage 1 diastolic dysfunction. No regional wall motion abnormalities noted. Right Ventricle Normal RV size. Normal systolic function. Atria Normal left atrium. Normal right atrium. Mitral Valve Normal mitral valve. Mild (1+) eccentric mitral valve insufficiency. Tricuspid Valve Normal tricuspid valve. Aortic Valve Trisinus/trileaflet aortic valve. Mild focal aortic valve calcification. Pulmonic Valve Normal pulmonic valve. Great Vessels Normal aortic root. The pulmonary artery is normal size. Normal inferior vena cava. Pericardium/Pleural No pericardial effusion. Medication Positive bubble study on previous echo. MMode/2D Measurements & Calculations LVIDd: 4.3 cm IVSd: 1.3 cm Ao root diam: 3.6 cm LVIDs: 2.9 cm LVPWd: 1.3 cm RVDd: 3.9 cm FS: 32.9 % LAV(MOD-bp): 54.7 ml LVAd ap4: 28.1 cm2 LVAd ap2: 25.8 cm2 LAV(MOD-bp) Indexed: 25.7 ml/m2 LVLd ap4: 7.9 cm LVLd ap2: 7.9 cm LAV(MOD-sp2): 41.0 ml EDV(MOD-sp4): 84.9 ml EDV(MOD-sp2): 72.3 ml LAV(MOD-sp4): 73.4 ml EDV(sp4-el): 85.1 ml EDV(sp2-el): 71.9 ml LVAs ap4: 17.8 cm2 LVAs ap2: 15.5 cm2 LVLs ap4: 7.1 cm LVLs ap2: 7.2 cm ESV(MOD-sp4): 39.2 ml ESV(MOD-sp2): 27.9 ml ESV(sp4-el): 38.0 ml ESV(sp2-el): 28.3 ml EF(MOD-sp4): 53.8 % EF(MOD-sp2): 61.3 % EF(sp4-el): 55.3 % SV(MOD-sp4): 45.7 ml SV(MOD-sp2): 44.3 ml SV(sp4-el): 47.1 ml LA A4 area: 22.9 cm2 LA dimension(2D): 4.4 cm RA A4 area: 14.3 cm2 Doppler Measurements & Calculations MV E max scottie: 56.6 cm/sec Lat Peak E' Scottie: 9.2 cm/sec Med Peak E' Scottie: 7.1 cm/sec MV A max scottie: 76.3 cm/sec E/E' lat: 6.2 E/E' med: 7.9 MV E/A: 0.74 Ao V2 max: 137.5 cm/sec LV V1 max: 73.0 cm/sec PA V2 max: 144.2 cm/sec Ao max P.6 mmHg LV V1 max P.1 mmHg Ao V2 mean: 97.2 cm/sec LV V1 mean P.4 mmHg Ao mean P.2 mmHg LV V1 mean: 56.3 cm/sec Ao V2 VTI: 30.7 cm LV V1 VTI: 17.0 cm AV (velocity ratio): 0.55 TR max scottie: 233.2 cm/sec TR max P.8 mmHg ECHO/Echo Complete Interpretation Summary Normal LV size. Mild concentric left ventricular hypertrophy. Left ventricular systolic function is normal. The estimated ejection fraction is 55 %. Stage 1 diastolic dysfunction. Ordering Physician: Fidencio Rowley Referring Physician: Fidencio Rowley Performed By: Mikaela Herring RDCS
--- NOTE | 2022-06-15 13:07 | CDU_ITS ---
Reason For Study: Confusion Rt. Velocities/BP Lt. Velocities/BP Prox CCA 46.5/7.2 cm/sec. Prox CCA 69.6/16.8 cm/sec. Mid CCA 88.5/20.4 cm/sec. Mid CCA 72.4/14.2 cm/sec. Dist CCA 79.7/11.6 cm/sec. Dist CCA 77.6/19.3 cm/sec. Prox ICA 132.4/29.2 cm/sec. Prox ICA 90.4/29.0 cm/sec. Mid ICA 132.4/22.6 cm/sec. Mid ICA 74.4/24.1 cm/sec. Dist ICA 81.7/16.8 cm/sec. Dist ICA 56.7/14.5 cm/sec. Rt. ICA/CCA = 1.5. Lt. ICA/CCA = 1.2. Prox ECA 130.2/16.0 cm/sec. Prox ECA 69.9/21.5 cm/sec. Rt. Vert. 50.9/11.3 cm/sec. Lt. Vert. 33.2/9.0 cm/sec. Right Extracranial There is heterogeneous, irregular atherosclerotic plaque noted in the right common carotid artery. There is heterogeneous, irregular atherosclerotic plaque noted in the right internal carotid artery. There is heterogeneous, irregular atherosclerotic plaque noted in the right external carotid artery. Antegrade flow is noted in the right vertebral artery. Left Extracranial There is heterogeneous, irregular atherosclerotic plaque noted in the left common carotid artery. There is heterogeneous, irregular atherosclerotic plaque noted in the left internal carotid artery. There is heterogeneous, irregular atherosclerotic plaque noted in the left external carotid artery. Antegrade flow is noted in the left vertebral artery. Procedure Carotid Duplex 10534. This is a Carotid Duplex examination using B-mode, color flow and specral Doppler. The exam was diagnostic. Exam performed in department. VL/Carotid Duplex Ultrasound Interpretation Summary Moderate (50-69%) stenosis right extracranial internal carotid. Mild (<50%) stenosis left extracranial internal carotid. Patent and antegrade vertebrals bilaterally. Ordering Physician: Fidencio Rowley Referring Physician: Fidencio Rowley Performed By: Gilmar Khan RVT
== END | disposition home or self-care (01) ==
PROVIDERS: PCP Family Medicine; Referring Provider Family Medicine; Visit Provider Family Medicine
DX: R41.0 Disorientation, unspecified (principal); I25.10 Atherosclerotic heart disease of native coronary artery without angina pectoris
CPT/HCPCS: 93306; 93880

== ENCOUNTER → 2022-06-24 | Outpatient (CLI) | payer MEDICARE, OTHER, SELFPAY ==
--- NOTE | 2022-06-27 13:27 | PFTCOMP_ITS ---
COMPLETE PULMONARY FUNCTION TEST INTERPRETATION Brief HPI: Patient is an 82-year-old male, currently under the care of myself, who presents to [facility] for complete pulmonary function tests secondary to diagnosis of dyspnea. Respiratory therapist reports good effort and reproducible results. Interpretation: Forced expiration spirometry shows no large airways obstructive ventilatory defect with an FEV1 of 95% predicted. There is no significant bronchodilator response by strict ATS criteria. Spirograms are of good quality and plateau normally. The respiratory flow volume loop shows a normal pattern. Lung volumes by body plethysmography show a normal total lung capacity at 6.82 L, 100% predicted. All other lung volumes are within normal limits. Diffusion capacity by carbon monoxide is normal at 91% predicted. The airway resistance is normal. Compared to previous pulmonary function tests from 02/02/2021, there has been complete normalization of lung function. Impression: Normal pulmonary function test with significant improvement compared to January 2021
== END | disposition home or self-care (01) ==
LOC: PSN 09:27
PROVIDERS: PCP Family Medicine; Referring Provider Internal Medicine Critical Care Medicine; Visit Provider Internal Medicine Critical Care Medicine
DX: R06.00 Dyspnea, unspecified (principal)
CPT/HCPCS: 94060; 94726; 94729

== ENCOUNTER → 2022-08-09 | Outpatient (CLI) | payer MEDICARE, OTHER, SELFPAY | END | disposition home or self-care (01) | LOC: PSN 13:07 | PROVIDERS: PCP Family Medicine; Referring Provider Internal Medicine Cardiovascular Disease; Visit Provider Internal Medicine Cardiovascular Disease | DX: I49.9 Cardiac arrhythmia, unspecified (principal) | CPT/HCPCS: 93225; 93226 ==

== ENCOUNTER → 2022-10-17 | Outpatient (CLI) | payer MEDICARE, OTHER, SELFPAY ==
[2022-10-17 11:49] LABS: Absolute Lymphocyte Count 1.46 X10^3/uL (0.83-4.51); Absolute Neutrophil Count 3.1 X10^3/uL (2.0-7.7); Basophil# 0.03 X10^3/uL; Basophil% 0.5 % (0-1); Eosinophil# 0.39 X10^3/uL; Hematocrit 41.9 % (40-54); Hemoglobin 13.6 g/dL (13.0-16.5); Lymphocyte # 1.46 X10^3/ul (0.83-4.51); Lymphocyte % 26.2 % (19-41); Mean Corp Hgb Conc 32.5 g/dL (32-36); Mean Corpuscular Hgb 31.3 pg (27.0-32.0); Mean Corpuscular Volume 96.5 fL (80-94); Mean Platelet Vol. 10.5 fl (6.2-12.0); Monocyte# 0.57 X10^3/uL; Monocyte% 10.2 % (0-10); NRBC Flagged by Analyzer 0 % (0-5); Neutrophil # 3.12 X10^3/uL (2.7-7.7); Neutrophil % 55.9 % (47-70); Platelet Count 194 K/mm3 (150-450); RBC Distribution Width CV 13.9 % (11.6-14.6); RBC Distribution Width SD 49.1 fl (35.1-43.9); Red Blood Count 4.34 M/mm3 (4.6-6.2); White Blood Count 5.6 K/mm3 (4.4-11.0)
[2022-10-17 12:07] LABS: Hemoglobin A1c 8.4 % (3.8-5.6)
[2022-10-17 12:09] LABS: Erythrocyte Sedimentation Rate 58 mm/hr (0-20)
[2022-10-17 12:43] LABS: Vitamin B12 636 pg/mL (211-911)
[2022-10-17 12:54] LABS: ALB/GLOB Ratio 0.9 RATIO (0.9-2.4); AST(SGOT) 68 U/L (15-37); Alanine Aminotransfer ALT/SGPT 60 U/L (16-61); Albumin, Serum 3.8 g/dL (3.2-5.0); Alkaline Phosphatase 135 U/L (45-117); Anion Gap 5 (5-15); BUN 20 mg/dL (7-18); BUN/Creat Ratio 17.4 RATIO (10-20); Calcium,Total 9.8 mg/dL (8.5-10.1); Chloride 109 mmol/L (98-107); Cholesterol 241 mg/dL (200); Creatinine, Serum 1.15 mg/dL (0.70-1.30); EST Glomerular Filtration Rate 65 mL/min (>60); Est Glom Filt Rate - Afr Amer 78 mL/min (>60); Globulin 4.4 g/dL (2.2-4.2); Glucose 240 mg/dL (74-106); High Density Lipoprotein 46 mg/dL; Potassium 3.7 mmol/L (3.5-5.1); Protein, Total 8.2 g/dL (6.4-8.2); Sodium Level 141 mmol/L (136-145); Thyroid Stim Hormone (TSH) 1.14 uIU/mL (0.358-3.74); Triglycerides 162 mg/dL; Very Low Density Lipoprotein 32 mg/dL (5-40)
[2022-10-19 07:08] LABS: Free Kappa Light Chains 31.5 mg/L (3.3-19.4); Free Lambda Light Chains 23.7 mg/L (5.7-26.3)
[2022-10-19 11:15] LABS: Vitamin B1, Thiamine 137.8 nmol/L (66.5-200.0)
== END | disposition home or self-care (01) ==
LOC: MFPLAB 11:09
PROVIDERS: Psychiatry & Neurology Neurology; PCP Family Medicine; Visit Provider Family Medicine
DX: E11.40 Type 2 diabetes mellitus with diabetic neuropathy, unspecified (principal); R21 Rash and other nonspecific skin eruption; G62.9 Polyneuropathy, unspecified; I25.10 Atherosclerotic heart disease of native coronary artery without angina pectoris; I10 Essential (primary) hypertension
CPT/HCPCS: 36415; 80053; 80061; 82607; 82746; 83036; 83883; 84425; 84443; 85025; 85652

== ENCOUNTER → 2022-10-21 | Outpatient (CLI) | payer MEDICARE, OTHER, SELFPAY ==
--- NOTE | 2022-10-21 08:59 | ART_ITS ---
Reason For Study: PAD Procedure A bilateral lower extremity continuous wave Doppler with analog waveform analysis and ankle brachial indexes. Left Segmental Pressures Left brachial= 145mmHg. Left posterior tibial artery = >254mmHg. Left dorsalis pedis artery = 134mmHg. Left digit = 92 mmHg. The left posterior tibial artery waveforms are biphasic. The left dorsalis pedis waveforms are triphasic. Right Segmental Pressures Right brachial= 140mmHg. Right posterior tibial artery = >254mmHg. Right dorsalis pedis artery = >254mmHg. Right digit = 112 mmHg. The right posterior tibial artery waveforms are biphasic. The right dorsalis pedis waveforms are triphasic. Indices The right ankle brachial index by the posterior tibial artery is N/C. The right ankle brachial index by the dorsalis pedis is N/C. The right digital-brachial index is 0.77. The left ankle brachial index by the posterior tibial artery is N/C. The left ankle brachial index by the dorsalis pedis is 0.92. The left digital-brachial index is 0.63. VL/Ankle Brachial Index Interpretation Summary Right triphasic with NC. Left triphasic and JANETH 0.92. DBI 0.77 and 0.63. Ordering Physician: Mane Solares Referring Physician: Sajan Rowley MD Performed By: Gilmar Khan RVT
== END | disposition home or self-care (01) ==
LOC: CVS 08:59
PROVIDERS: PCP Family Medicine; Visit Provider Psychiatry & Neurology Neurology
DX: I73.9 Peripheral vascular disease, unspecified (principal)
CPT/HCPCS: 93922; J7030

== ENCOUNTER → 2022-10-28 | Outpatient (CLI) | payer MEDICARE, OTHER, SELFPAY ==
[2022-10-31 13:08] LABS: Cytoplasmic Ab (C-ANCA) <1:20 titer (Neg:<1:20); Perinuclear Ab (P-ANCA) <1:20 titer (Neg:<1:20)
[2022-10-31 15:07] LABS: ANTINUCLEAR ANTIBODIES DIRECT Negative (Negative)
== END | disposition home or self-care (01) ==
LOC: MFPLAB 13:35
PROVIDERS: PCP Family Medicine; Visit Provider Family Medicine
DX: R21 Rash and other nonspecific skin eruption (principal)
CPT/HCPCS: 36415; 86038; 86225; 86235; 86256

== ENCOUNTER → 2022-11-15 | Outpatient (CLI) | payer MEDICARE, OTHER, SELFPAY ==
--- NOTE | 2022-11-15 16:25 | MRI_ITS ---
EXAM: MR ANGIOGRAPHY HEAD WITHOUT INTRAVENOUS CONTRAST CLINICAL INDICATION: Family history of cerebral aneurysm TECHNIQUE: Routine [place]/brain 3D time of flight MR angiogram protocol was performed without intravenous contrast. COMPARISON: ct 06.14.22 FINDINGS: RIGHT INTERNAL CAROTID ARTERY: There is calcified plaque formation of the right cavernous carotid artery, with a mild stenosis (less than 50%). ALL ABOVE CRITERIA BY NASCET. No aneurysm. RIGHT ANTERIOR CEREBRAL ARTERY: Unremarkable. No significant stenosis at the visualized segments. Anterior communicating artery is present. No aneurysm. RIGHT MIDDLE CEREBRAL ARTERY: Unremarkable. No significant stenosis at the visualized segments. No aneurysm. RIGHT POSTERIOR CEREBRAL ARTERY: Unremarkable. No significant stenosis at the visualized segments. No aneurysm. RIGHT VERTEBRAL ARTERY: Unremarkable as visualized. No significant stenosis at the intradural/visualized segments. No aneurysm. LEFT INTERNAL CAROTID ARTERY: There is calcified plaque formation of the left cavernous carotid artery, with a mild stenosis (less than 50%). ALL ABOVE CRITERIA BY NASCET. No aneurysm. LEFT ANTERIOR CEREBRAL ARTERY: Unremarkable. No significant stenosis at the visualized segments. Anterior communicating artery is present. No aneurysm. LEFT MIDDLE CEREBRAL ARTERY: Unremarkable. No significant stenosis at the visualized segments. No aneurysm. LEFT POSTERIOR CEREBRAL ARTERY: Unremarkable. No significant stenosis at the visualized segments. No aneurysm. LEFT VERTEBRAL ARTERY: Unremarkable as visualized. No significant stenosis at the intradural/visualized segments. No aneurysm. BASILAR ARTERY: Unremarkable. No significant stenosis. No aneurysm. OTHER VASCULATURE: See above. MRI/MRA Head ONLY without Contrast IMPRESSION: 1. There is calcified plaque formation of the right cavernous carotid artery, with a mild stenosis (less than 50%). ALL ABOVE CRITERIA BY NASCET. 2. There is calcified plaque formation of the left cavernous carotid artery, with a mild stenosis (less than 50%). ALL ABOVE CRITERIA BY NASCET. Electronically Signed: Jonathan Dunbar MD at 16:44 EDT ,
== END | disposition home or self-care (01) ==
LOC: MRI 16:16
PROVIDERS: PCP Family Medicine; Referring Provider Psychiatry & Neurology Neurology; Visit Provider Psychiatry & Neurology Neurology
DX: I65.21 Occlusion and stenosis of right carotid artery (principal); Z82.49 Family history of ischemic heart disease and other diseases of the circulatory system
CPT/HCPCS: 70544

== ENCOUNTER → 2023-02-23 | Outpatient (CLI) | payer MEDICARE, OTHER, SELFPAY ==
[2023-02-23 15:51] LABS: AST(SGOT) 34 U/L (15-37); Alanine Aminotransfer ALT/SGPT 42 U/L (16-61); Albumin, Serum 3.9 g/dL (3.2-5.0); Alkaline Phosphatase 113 U/L (45-117); Anion Gap 7 (5-15); BUN 17 mg/dL (7-18); BUN/Creat Ratio 15.6 RATIO (10-20); Calcium,Total 9.4 mg/dL (8.5-10.1); Chloride 110 mmol/L (98-107); Cholesterol 205 mg/dL (200); Creatinine, Serum 1.09 mg/dL (0.70-1.30); EST Glomerular Filtration Rate 69 mL/min (>60); Est Glom Filt Rate - Afr Amer 83 mL/min (>60); Globulin 3.8 g/dL (2.2-4.2); Glucose 184 mg/dL (74-106); High Density Lipoprotein 57 mg/dL; Protein, Total 7.7 g/dL (6.4-8.2); Sodium Level 143 mmol/L (136-145); Triglycerides 149 mg/dL; Very Low Density Lipoprotein 30 mg/dL (5-40)
[2023-02-28 13:07] LABS: Albumin 3.9 g/dL (2.9-4.4); Alpha-1-Globulins 0.3 g/dL (0.0-0.4); Gamma Globulin 0.6 g/dL (0.4-1.8); Immunoglobulin A 273 mg/dL (61-437); Immunoglobulin G 741 mg/dL (603-1613); Immunoglobulin M 32 mg/dL (15-143)
== END | disposition home or self-care (01) ==
LOC: MTLAB 12:33
PROVIDERS: PCP Family Medicine; Visit Provider Psychiatry & Neurology Neurology
DX: G62.9 Polyneuropathy, unspecified (principal); E11.40 Type 2 diabetes mellitus with diabetic neuropathy, unspecified
CPT/HCPCS: 36415; 80053; 80061; 82784; 84165; 86334; 86335

== ENCOUNTER → 2023-03-01 | Outpatient (CLI) | payer MEDICARE, OTHER, SELFPAY ==
--- NOTE | 2023-03-01 12:50 | CDU_ITS ---
Reason For Study: CAROTID STENOSIS Rt. Velocities/BP Lt. Velocities/BP Prox CCA 48.1/5.6 cm/sec. Prox CCA 73.2/10.6 cm/sec. Mid CCA 73.6/11.2 cm/sec. Mid CCA 84.2/17.9 cm/sec. Dist CCA 105.1/11.8 cm/sec. Dist CCA 70.7/9.3 cm/sec. Prox ICA 123.5/19.4 cm/sec. Prox ICA 74.6/19.7 cm/sec. Mid ICA 83.0/13.0 cm/sec. Mid ICA 65.8/13.1 cm/sec. Dist ICA 41.5/10.8 cm/sec. Dist ICA 62.5/12.0 cm/sec. Rt. ICA/CCA = 123.5/105.1=1.2. Lt. ICA/CCA = 74.6/84.2=0.9. Prox ECA 123.5/10.2 cm/sec. Prox ECA 118.0/12.1 cm/sec. Rt. Vert. 47.4/15.5 cm/sec. Lt. Vert. 35.7/11.3 cm/sec. Right Extracranial There is heterogeneous, irregular atherosclerotic plaque noted in the right common carotid artery. There is heterogeneous, irregular atherosclerotic plaque noted in the right internal carotid artery. There is heterogeneous, irregular atherosclerotic plaque noted in the right external carotid artery. Antegrade flow is noted in the right vertebral artery. Left Extracranial There is heterogeneous, irregular atherosclerotic plaque noted in the left common carotid artery. There is heterogeneous, irregular atherosclerotic plaque noted in the left internal carotid artery. There is heterogeneous, irregular atherosclerotic plaque noted in the left external carotid artery. Antegrade flow is noted in the left vertebral artery. Procedure Carotid Duplex 37606. This is a Carotid Duplex examination using B-mode, color flow and specral Doppler. Exam performed in department. VL/Carotid Duplex Ultrasound Interpretation Summary Mild (<50%) stenosis right extracranial internal carotid. Mild (<50%) stenosis left extracranial internal carotid. Patent and antegrade vertebrals bilaterally. Ordering Physician: Mane Solares Referring Physician: Sajan Rowley Performed By: Margareth Lawton RDCS, RVT
== END | disposition home or self-care (01) ==
LOC: CVS 12:49
PROVIDERS: PCP Family Medicine; Referring Provider Psychiatry & Neurology Neurology; Visit Provider Psychiatry & Neurology Neurology
DX: I65.21 Occlusion and stenosis of right carotid artery (principal)
CPT/HCPCS: 93880

== ENCOUNTER → 2023-08-17 | Outpatient (CLI) | payer MEDICARE, OTHER, SELFPAY ==
[2023-08-17 17:36] LABS: Absolute Lymphocyte Count 1.28 X10^3/uL (0.83-4.51); Absolute Neutrophil Count 3.5 X10^3/uL (2.0-7.7); Basophil# 0.04 X10^3/uL; Basophil% 0.7 % (0-1); Eosinophil# 0.18 X10^3/uL; Eosinophils% 3.2 % (0-5); Hematocrit 43.2 % (40-54); Hemoglobin 13.4 g/dL (13.0-16.5); Lymphocyte # 1.28 X10^3/ul (0.83-4.51); Lymphocyte % 22.6 % (19-41); Mean Corpuscular Hgb 29.7 pg (27.0-32.0); Mean Corpuscular Volume 95.8 fL (80-94); Mean Platelet Vol. 10.1 fl (6.2-12.0); Monocyte# 0.66 X10^3/uL; Monocyte% 11.7 % (0-10); NRBC Flagged by Analyzer 0 % (0-5); Neutrophil # 3.49 X10^3/uL (2.7-7.7); Neutrophil % 61.6 % (47-70); Platelet Count 226 K/mm3 (150-450); RBC Distribution Width CV 14.3 % (11.6-14.6); RBC Distribution Width SD 50.1 fl (35.1-43.9); Red Blood Count 4.51 M/mm3 (4.6-6.2); White Blood Count 5.7 K/mm3 (4.4-11.0)
[2023-08-17 18:25] LABS: ALB/GLOB Ratio 0.8 RATIO (0.9-2.4); AST(SGOT) 23 U/L (15-37); Alanine Aminotransfer ALT/SGPT 25 U/L (16-61); Albumin, Serum 3.7 g/dL (3.2-5.0); Alkaline Phosphatase 140 U/L (45-117); Anion Gap 9 (5-15); BUN 17 mg/dL (7-18); Calcium,Total 9.7 mg/dL (8.5-10.1); Chloride 110 mmol/L (98-107); Creatinine, Serum 1.31 mg/dL (0.70-1.30); EST Glomerular Filtration Rate 56 mL/min (>60); Est Glom Filt Rate - Afr Amer 67 mL/min (>60); Globulin 4.4 g/dL (2.2-4.2); Glucose 133 mg/dL (74-106); Potassium 3.5 mmol/L (3.5-5.1); Prealbumin 21.2 mg/dL (20.0-40.0); Protein, Total 8.1 g/dL (6.4-8.2); Sodium Level 145 mmol/L (136-145); Thyroid Stim Hormone (TSH) 0.39 uIU/mL (0.358-3.74); Uric Acid 3.8 mg/dL (3.5-7.2)
== END | disposition home or self-care (01) ==
LOC: MFPLAB 15:35
PROVIDERS: PCP Family Medicine; Visit Provider Family Medicine
DX: R63.4 Abnormal weight loss (principal); E11.40 Type 2 diabetes mellitus with diabetic neuropathy, unspecified
CPT/HCPCS: 36415; 80053; 84134; 84443; 84550; 85025

== ENCOUNTER → 2023-08-31 | Outpatient (CLI) | payer MEDICARE, OTHER, SELFPAY ==
--- OUTSIDE RECORDS SUMMARY | 2023-08-31 07:07 | XMS RPT_ITS | CCD ---
Author Name Unknown Address [address] [place] [address] [address] [place] [address] Organization [facility] Care Team Providers Care Extra Gang Supervisor Name Role Phone GREG CHAVEZ Unavailable Unavailable No, Physician Primary Care Provider MERRILL Harry Attending KATI Goldberg Referring Unava ilable NO, PHYSICIAN Primary Care Unavailable Medications Current Medications Medication Drug Class(es) Dates Sig (Normalized) Sig (Original) allopurinol 300 mg oral tablet (1 source) Xanthine Oxidase Inhibitor Start: 09-05-2015 allopurinoL (ZYLOPRIM) 300 MG tablet daily . 0 09/05/2015 Active amLODIPine 10 mg oral tablet (1 source) Dihydropyridine Calcium Channel Zachariah Start: 07-06-2021 take 1 tablet by mouth once daily amLODIPine (NORVASC) 10 MG tablet Take 10 mg by mouth daily . 0 07/06/2021 Active aspirin 81 mg delayed release oral tablet (1 source) Platelet Aggregation Inhibitor, Nonsteroidal Anti-inflammatory Drug take 1 tablet by mouth once daily aspirin 81 MG EC tablet Take 81 mg by mouth daily . 0 Active gabapentin 800 mg oral tablet (1 source) Anti-epileptic Agent Start: 08-20-2021 gabapentin (NEURONTIN) 800 MG tablet gemfibrozil 600 mg oral tablet (1 source) Peroxisome Proliferator Receptor alpha Agonist Start: 07-22-2021 take 1 tablet by mouth twice daily gemfibroziL (LOPID) 600 MG tablet Take 600 mg by mouth 2 (two) times a day . 0 07/22/2021 Active glimepiride 1 mg oral tablet (1 source) Sulfonylurea Start: 10-07-2015 glimepiride (AMARYL) 1 MG tablet daily . 0 10/07/2015 Active levothyroxine sodium 0.05 mg oral tablet (1 source) l-Thyroxine Start: 08-27-2021 take 1 tablet by mouth once daily levothyroxine (SYNTHROID, LEVOTHROID) 50 MCG tablet Take 50 mcg by mouth daily . 0 08/27/2021 Active lisinopril 20 mg oral tablet (1 source) Angiotensin Converting Enzyme Inhibitor Start: 09-05-2015 lisinopriL (PRINIVIL,ZESTRIL) 20 MG tablet daily . 0 09/05/2015 Active 24 hr metFORMIN hydrochloride 500 mg extended release oral tablet (1 source) Biguanide Start: 07-22-2021 take 1 tablet by mouth once daily metFORMIN (GLUCOPHAGE-XR) 500 MG 24 hr tablet Take 500 mg by mouth daily . 0 07/22/2021 Active Problems Problem Classification Problem Date Documented Date Episodic/Chronic Coronary atherosclerosis and other heart disease (2 sources) Coronary arteriosclerosis; Translations: [Atherosclerotic heart disease of [place] coronary artery without angina pectoris] Onset: 01-09-2014 Chronic Diabetes mellitus with complications (1 source) Type 2 diabetes mellitus; Translations: [Type 2 diabetes mellitus with other specified complication] Chronic Diabetes mellitus without complication (1 source) Diabetes mellitus; Translations: [Type 2 diabetes mellitus without complications] Onset: 09-03-2021 09-03-2021 Chronic Disorders of lipid metabolism (2 sources) Hyperlipidemia; Translations: [Hyperlipidemia, unspecified] Onset: 12-31-2013 Chronic Essential hypertension (2 sources) Essential hypertension; Translations: [Essential (primary) hypertension] Onset: 12-31-2013 Chronic Melanomas of skin (2 sources) H/O Malignant melanoma; Translations: [Personal history of malignant melanoma of skin] Onset: 09-03-2021 Episodic Occlusion or stenosis of precerebral arteries (2 sources) Right carotid artery stenosis; Translations: [Occlusion and stenosis of right carotid artery] Onset: 12-31-2013 Chronic Other connective tissue disease (2 sources) H/O: gout; Translations: [Personal history of other diseases of the musculoskeletal system and connective tissue] Onset: 09-03-2021 Episodic Other eye disorders (1 source) Fourth nerve palsy; 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, right eye] Episodic Screening and history of mental health and substance abuse codes (2 sources) Ex-smoker; Translations: [Personal history of nicotine dependence] Onset: 09-03-2021 Episodic Thyroid disorders (2 sources) Hypothyroidism; Translations: [Hypothyroidism, unspecified] Onset: 09-03-2021 Chronic Unclassified (1 source) Unknown / UNK(Unknown) Onset: 10-29-2015 Results Test Name Value Interpretation Reference Range Facil ity Vital Signs Date Time Vital Sign Value Performing Clinician Christine nichols 09-03-2021 10:28-0500 Body height 182.9 cm Merrill Careyt DO Work Phone: [facility] 09-03-2021 10:28-0500 Body mass index (BMI) [Ratio] 27.4 kg/m2 Merrill Careyt DO Work Phone: [facility] 09-03-2021 10:28-0500 Body temperature 98.4 [degF] Merrill Careyt DO Work Phone: [facility] 09-03-2021 10:28-0500 Body weight 91.63 kg Merrill Caryet DO Work Phone: [facility] 09-03-2021 10:28-0500 Diastolic blood pressure 70 mm[Hg] Merrill Careyt DO Work Phone: [facility] 09-03-2021 10:28-0500 Heart rate 66 /min Merrill Careyt DO Work Phone: [facility] 09-03-2021 10:28-0500 Respiratory rate 14 /min Merrill Careyt DO Work Phone: [facility] 09-03-2021 10:28-0500 SaO2% (BldA) [Mass fraction] 94 % Merrill Careyt DO Work Phone: [facility] 09-03-2021 10:28-0500 Systolic blood pressure 136 mm[Hg] Merrill Careyt DO Work Phone: [facility] Encounters Encounter Date Encounter Type Care Provider Facility Start: 09-03-2021 End: 09-03-2021 ambulatory MERRILL FLEMING [facility] Start: 09-03-2021 End: 09-03-2021 Office outpatient new 45 minutes Merrill Colvingett DO Work Phone: [facility] Procedures Date Procedure Procedure Detail Performing Clinician Start: 09-03-2021 Ecg routine ecg w/le ast 12 lds w/i&r Merrill Fleming DO Work Phone: Start: 09-03-2021 Blood count hemoglobin Merrill Fleming DO Work Phone: Start: 01-03-2014 History of coronary artery bypass grafting History of coronary artery bypass surgery Merrill Fleming DO Work Phone: History of coronary artery bypass grafting History of coronary artery bypass surgery Merrill Fleming DO Work Phone: Plan of Treatment Date Care Activity Detail Author Start: 2006 Fall risk assessment Falls Risk Asse ssment [facility] Start: 1953 Depression screening using PHQ-9 (Patient Health Questionnaire 9) score Depression Screening (PHQ-2/9) [facility] Start: 1951 Diabetic foot examination Foot Exam [facility] Start: 1951 Microalbumin measure ment, urine, quantitative Urine Microalbumin [facility] Start: 1951 Ophthalmic examinati on and evaluation Ophthalmology Exam [facility] Start: 1944 History and physical examination, annual for health maintenance Wellness Visit [facility] Start: 1941 Hemoglobin A1c measurement A1C [facility] Start: 1941 Tetanus vaccination Tetanus: Every 1 0yrs [facility] Payers Date Payer Category Payer Medicare MEDICARE MEDICAR E PART A & B [id number] 2006-Present [phone] S [id number] [place] [address] [place] [place] [address] [id number] 2006 Medicare [id number] 1940 Unknown [id number] Social History Date Type Detail Facility Start: 09-03-2021 Tobacco smoking status NHIS Ex-smoke r [facility] Start: 09-03-2021 Tobacco use and exposure Smokeless t obacco non-user [facility] Start: 09-03-2021 Alcohol intake Ex-drinker (finding) [facility] Start: 1941 Sex Assigned At Not on file [facility] Start: 08-24-2021 End: 09-03-2021 Exposure to SARS-CoV-2 (event) Not sure [facility] History of Present illness Narrative 09-03-2021 Merrill Fleming, DO - 09/03/2021 10:15 AM EST Note Date & Type Note Facility 09-03-2021 History of Presen t illness Narrative HISTORY Patient Name: Gia Velasco Date of Exam: 09/03/2021 Date of Surgery: 09/03/21 Diagnosis: Fourth trochlear nerve palsy right eye Reason for visit/consultation: Medical risk stratification for same day surgery History of current illness: Gia Velasco is a 81 y.o. male who presents for preoperative medical risk stratification prior to eye surgery at the request of Dr. Barriga. His medical conditions include: CAD s/p triple bypass 2016- doing well follows with Cardiology, no chest pain, held aspirin today, intolerance to statin Carotid stenosis- being monitored by his PCP with yearly imaging DM- held glimepiride today, not taking metformin, home sugars have been around 200 HTN- compliant with medication, does not check ambulatory readings HLD- compliant with gemfibrozil, intolerant to statin, no side effects Hypothyroidism- stable on levothyroxine History of gout- taking allopurinol, no recent flares History of melanoma, removed from arm- no recurrence, no new skins lesions/moles Former smoker Patient Active Problem List Diagnosis Former smoker History of melanoma Hyperlipidemia Arteriosclerosis of coronary artery Essential hypertension History of coronary artery bypass surgery Stenosis of right carotid artery Diabetes mellitus (HCC) Hypothyroidism History of gout Past Medical History: Diagnosis Date Coronary artery disease Diabetes mellitus (HCC) Disease of thyroid gland Hyperlipidemia Hypertension Melanoma (HCC) Type of anesthesia: Regional Anesthesia History: Yes, without complications Past Surgical History: Procedure Laterality Date CORONARY ARTERY BYPASS GRAFT triple bypass 2013 No Known Allergies Review of Systems Constitutional: Negative for fever. HENT: Negative for nosebleeds. Eyes: Positive for visual disturbance. Negative for discharge. Respiratory: Negative for shortness of breath. Cardiovascular: Negative for chest pain. Gastrointestinal: Negative for abdominal pain. Skin: Negative for rash. Neurological: Negative for seizures. Hematological: Does not bruise/bleed easily. Psychiatric/Behavioral: Negative for confusion. Social History Social History Tobacco Use Smoking status: Former Smoker Smokeless tobacco: Never Used Substance Use Topics Alcohol use: Not Currently Social History Substance and Sexual Activity Drug Use Never Marital Status: Unknown History reviewed. No pertinent family history. Current Outpatient Medications Medication Sig Dispense Refill allopurinoL (ZYLOPRIM) 300 MG tablet daily . amLODIPine (NORVASC) 10 MG tablet Take 10 mg by mouth daily . aspirin 81 MG EC tablet Take 81 mg by mouth daily . gabapentin (NEURONTIN) 800 MG tablet gemfibroziL (LOPID) 600 MG tablet Take 600 mg by mouth 2 (two) times a day . glimepiride (AMARYL) 1 MG tablet daily . levothyroxine (SYNTHROID, LEVOTHROID) 50 MCG tablet Take 50 mcg by mouth daily . lisinopriL (PRINIVIL,ZESTRIL) 20 MG tablet daily . metFORMIN (GLUCOPHAGE-XR) 500 MG 24 hr tablet Take 500 mg by mouth daily . No current facility-administered medications for this visit. PHYSICAL Patient Name: Gia Velasco Age: 81 y.o. BP 136/70 Pulse 66 Temp 98.4 F (36.9 C) (Infrared) Resp 14 Ht 6' Wt 91.6 kg (202 lb) SpO2 94% BMI 27.40 kg/m Physical Exam General: Alert, cooperative, well appearing, in no apparent distress. Head: Head is symmetric, normocephalic without evidence of trauma or deformity. Eyes: Right fourth nerve palsy. The lids are without swelling, lesions, or drainage. Neck: Full range of motion. Right carotid bruit. CV: The heart sounds are regular in rate and rhythm. Soft murmur. Lungs: Inspiratory and expiratory efforts are full and unlabored. Lung sounds are clear and equal to auscultation throughout all lung brizuela without wheezing, rales, or rhonchi. GI: The abdomen is soft and nontender. There is no rebound or guarding. Neuro: Alert. Cranial Nerves intact grossly. Motor strength intact grossly. Gait: Normal Extremities: There is no clubbing, cyanosis, or edema. Peripheral pulses are 2+ equal and symmetrical. Skin: Warm and dry without rash. EKG Results: EKG reviewed and interpreted by me, results on EKG documentation Prior EKG to compare: none Results for orders placed or performed in visit on 09/03/21 POC Potassium Result Value Ref Range Potassium 4.4 3.5 - 5.1 mmol/L POC Glucose Result Value Ref Range Glucose 249 mg/dL POC Hematocrit Result Value Ref Range Hematocrit 39.0 (A) 41.0 - 53.0 % POC Hemoglobin Result Value Ref Range Hemoglobin 13.3 (A) 13.5 - 17.5 g/dL ECG 12 Lead Result Value Ref Range Atrial Rate Ventricular Rate P-R Interval QRS Duration Q-T Interval Q-T Interval (corrected) QTC Calculation (Bezet) P Cresco R Cresco T Cresco IMPRESSION/PLAN: 81 y.o. female being seen today for preoperative medical risk stratification for same-day eye surgery at the request of Dr. Barriga. The patient appears stable from a cardiovascular standpoint, blood pressure acceptable, held aspirin today. Diabetes appears uncontrolled and blood sugar is elevated today but acceptable for eye surgery. 1. Pre-operative examination ECG 12 Lead 2. Fourth (trochlear) nerve palsy, right eye 3. Arteriosclerosis of coronary artery POC Hematocrit POC Hemoglobin 4. History of coronary artery bypass surgery 5. Stenosis of right carotid artery 6. Type 2 diabetes mellitus with other specified complication, without long-term current use of insulin (HCC) POC Glucose 7. Essential hypertension POC Potassium POC Glucose 8. Hyperlipidemia, unspecified hyperlipidemia type 9. Hypothyroidism, unspecified type 10. History of melanoma 11. Former smoker 12. History of gout Risk factors for surgery include: Age, Former smoker, CAD, Carotid Stenosis, DM (uncontrolled, elevated), HTN, HLD, Hypothyroidism, History of melanoma With a dx of DM the patient was instructed upon the signs and symptoms of hypoglycemia and should notify their surgeon prior to surgery if any of the symptoms appear. Patient is at higher risk for falls due to vision impairment. Preoperative recommendations: I reviewed the patient's pertinent medical history and medications. No additional recommendations or changes are warranted prior to his scheduled surgery. Risk Assessment: The patient is currently in a medically optimal state and the risk of surgery is acceptable at this time. Questions regarding his medical issues were answered and discussed. Postoperative recommendations: Patient was instructed to continue his current medical regimen following surgery, unless instructed otherwise by his surgeon. The patient will follow up with his PCP for any additional medical concerns. This patient has an acceptable cardiac risk for the intended procedure, it is my professional opinion that the patient does not have any medical condition at this present time that significantly increase the risk for an adverse outcome. Thank you for the opportunity to evaluate your patient. Please feel free to contact our office with any questions. A copy of this evaluation was provided to the referring physician. Merrill Fleming D.O. 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 This clinical summary was aggregated from multiple sources. Caution should be exercised in using it in the provision of clinical care. This summary normalizes information from multiple sources, and as a consequence, information in this document may materially change the coding, format and clinical context of patient data. In addition, data may be omitted in some cases. CLINICAL DECISIONS SHOULD BE BASED ON THE PRIMARY CLINICAL RECORDS. [facility] [employer] [facility]. provides no warranty or guarantee of the accuracy or completeness of information in this document.
--- NOTE | 2023-08-31 16:26 | STRESSREP ---
Stress Test Report Exercise myocardial perfusion stress test. 83-year-old man with a history of coronary artery disease and dyspnea Stress protocol: Resting EKG demonstrates normal sinus rhythm with a rate of 76 bpm resting blood pressure is 118/80 mmHg. The patient exercised according to the regular Ronnie protocol for a total duration of 2 minutes and 48 seconds attaining a maximum heart rate of 121 bpm which was 87% of maximum predicted heart rate; the maximum workload was 4.6 metabolic equivalents. At rest there were no ST or T wave changes noted to suggest ischemia and at peak exercise upsloping ST changes only were noted which did not meet the criteria for ischemia. No clinical angina was noted the test was terminated due to the target heart rate being achieved/fatigue. The peak blood pressure was 172/98 8 mmHg. Rate-pressure product was 14,800. Myocardial perfusion protocol. 11.5 mCi of technetium 99m sestamibi was injected at rest. The patient exercised according to regular Ronnie protocol for total duration of 2 minutes and 48 seconds and at peak exercise 33.7 mCi of technetium 99m sestamibi was injected stress images were obtained stress and rest images were reconstructed in comparing the short axis vertical long and horizontal long axis. Gated images were also obtained. Perfusion SPECT analysis: Review of the stress images demonstrate normal uptake of tracer noted in all areas of the myocardium except for the basal anteroseptal and mid anteroseptal wall with a perfusion defect. The resting images similarly demonstrate normal uptake of tracer noted in all areas of the myocardium. The above is suggestive of a basal anteroseptal and mid anteroseptal ischemic zone. Gated SPECT analysis: The gated ejection fraction is 60%. Conclusion: Abnormal exercise myocardial perfusion stress test at a low workload which may affect sensitivity for detection of the exact extent of ischemia Preserved ejection fraction.
== END | disposition home or self-care (01) ==
LOC: CVS 07:05
PROVIDERS: PCP Family Medicine; Referring Provider Nurse Practitioner Gerontology; Visit Provider Nurse Practitioner Gerontology
DX: I25.10 Atherosclerotic heart disease of native coronary artery without angina pectoris (principal); R06.02 Shortness of breath
CPT/HCPCS: 78452; 93017; A9500; A4216

== ENCOUNTER → 2023-09-22 | Day surgery (SDC) | payer MEDICARE, OTHER, SELFPAY ==
--- NOTE | 2023-09-07 16:23 | PCM.HP.BLA ---
History and Physical Date of Admission: 09/22/23 GIA VIRAMONTES, is a 83 M who presents for a cardiac catheterization following an abnormal stress test. He is a gentleman with a history of coronary artery disease status post coronary artery bypass surgery in 2013, with a left internal mammary artery to the left anterior descending artery, saphenous vein graft to the diagonal branch, saphenous vein graft to posterior descending artery, hypertension and hyperlipidemia. He also has a history of carotid artery disease. From a cardiac standpoint, the patient is doing well. He denies any palpitations, chest pain, pressure or heaviness. He does acknowledge that he went up three flights of stairs the other day, and was fatigued, and SOB when he got to the top. He denies Orthopnea, and PND. He does not have bleeding issues; no blood in urine, stool or nosebleeds. He denies any decrease in energy level, myalgias, or claudication. He does not have edema, or sudden weight gain. He denies dizziness, lightheadedness, syncopal or near syncopal episodes, and headaches. Intake Vital Signs See EMR Allergies See EMR Medications See EMR [facility] Medical History Arthritis Atherosclerosis of coronary artery of [place] heart without angina pectoris Cataracts, bilateral Diabetes mellitus Essential (primary) hypertension Former smoker Gangrenous cholecystitis Gout Hearing problem Hyperlipemia Hypothyroidism Kidney stones Melanoma in situ of left upper extremity Neuropathy Nonhealing surgical wound Open wound of left forearm Personal history of malignant melanoma Screening for colon cancer Stenosis of right carotid artery Vascular disease Vision problems Surgical History 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) History of left heart catheterization (06/10/19) Status post laparoscopic cholecystectomy Family History Father Diabetes Hypertension High cholesterolBrother High cholesterolOther Arthritis Heart disease Social History Smoking Status: Former smoker Tobacco: How many years used: 8 how long ago did patient quit smokin years ago second hand exposure: No alcohol intake: never substance use type: does not use caffeine: Yes Type: coffee Number of servings: 2 nadine/latter-day: Rastafarian seatbelt use: always additional social history: DOES NOT USE ASPIRIN DOES NOT USE IBUPROFEN ROS Const Const: Negative for fatigue, weakness, fever(s), headache(s), chills, frequent falls, weight gain or weight loss Eyes Eyes: Negative for blind spots, loss of peripheral vision, transient loss of vision, blurry vision, change in vision, double vision, floaters or tunnel vision ENT ENT: Negative for headache(s), dizziness, Nosebleed/epistaxis, balance problems or neck pain Cardio Chest Pain: No Palpitations: No Edema: None Muscle aches with walking: None Resp Respiratory: Positive for SOB with activity; Negative for SOB at rest or SOB orthopnea\SOB lying down GI GI: Negative nausea, vomiting, heartburn, bloating, vomiting blood/hematemesis, bright, red blood in stools or black,tarry stools Musc Musc: Negative for muscle aches/ myalgia, muscle weakness, joint pain or balance problems Neuro Neuro: Negative for dizziness, lightheadedness, near syncope, syncope, orthostatic symptoms, frequent falls, headache(s), weakness, blurry vision or double vision Jin Hematologic/Lymphatic: Negative for easy bleeding or easy bruising Endo Endo: Negative for fatigue Cardiology Exam Const Appearance: cooperative and no acute distress Orientation: alert and oriented x3 Head Head: normal to inspection Ears: hearing grossly normal bilaterally Nose: external nose normal Face and Sinus: face symmetric Eyes General: appearance normal, both eyes and all related structures Eyelids: eyelids normal Conjunctivae: conjunctivae normal Pupils: PERRL and pupil size EOM: EOM intact bilaterally Neck Neck: normal visual inspection Carotids: Negative bruit Chest Chest inspection: normal inspection of the chest and normal respiratory effort Auscultation: Bilateral: Clear to Auscultation Cardio Palpation: normal PMI Rate: regular rate Rhythm: regular rhythm Heart sounds: S1 normal and S2 normal; Negative rub, gallop or murmur GI GI: normal to inspection and soft Neuro General: patient alert, patient oriented x3 and CN's II-XI intact bilaterally Skin Skin: no rashes or lesions noted Extremities Pulses: Normal: Right Posterior Tibial Pulse, Left Posterior Tibial Pulse, Right Radial Pulse and Left Radial Pulse Lower Extremity Edema: None: Bilateral Psych Psychological: normal affect Supplemental Info Supplemental Information Echocardiogram 06/15/2022 Interpretation Summary Normal LV size. Mild concentric left ventricular hypertrophy. Left ventricular systolic function is normal. The estimated ejection fraction is 55 %. Stage 1 diastolic dysfunction. Echocardiogram from 01/10/2021: Interpretation Summary The study was technically difficult. Contrast injection was performed. Left ventricular systolic function is normal. The estimated ejection fraction is 60 %. Mild concentric left ventricular hypertrophy. The left atrium is mildly enlarged. Trivial mitral valve insufficiency. Moderate (2+) tricuspid valve insufficiency. Mild diffuse aortic valve thickening. Moderate focal aortic valve calcification. Right ventricular systolic pressure estimated to be 41 mmHg. No evidence for diastolic dysfunction. Positive agitated saline contrast study for right to left interatrial shunt compatible with a PFO versus ASD. Cardiac catheterization from 06/10/2019: PROCEDURE(S) PERFORMED FL24-UBK/COR/LV/CABG CLINICAL PROFILE AND INDICATIONS Indications: Suspected CAD Heart Failure: None Stress/Imaging Date: 06/03/2019Stress Test with SPECT MPI: Positive Intermediate Risk CAD Presentations: No Sxs, no angina. CONCLUSIONS Status post coronary artery bypass surgery with patent left internal mammary artery to left anterior descending artery, saphenous vein graft to the diagonal vessel, and saphenous vein graft to the posterior descending artery. Moderate disease is noted in the saphenous vein graft to the posterior descending artery. Hypertension is noted and preserved ejection fraction is present. RECOMMENDATIONS Medical therapy CORONARY ANGIOGRAPHY DOMINANCE: Right Dominant LEFT HEART ASSESSMENT Left Ventricular Ejection Fraction: by LV Gram 60 % Normal LV wall motion Normal Left Ventricular systolic function LEFT MAIN: Angiographically normal LEFT ANTERIOR DESCENDING ARTERY: PROX LAD: is occluded CIRCUMFLEX ARTERY: PROX CIRC: Moderate luminal irregularities up to 50% OM 1: Proximal - Mild luminal irregularities less than 30% RIGHT CORONARY ARTERY: MID RCA: Diffusely diseased up to 70 % GRAFTS: CORCORAN graft to the Mid LAD is patent Saphenous Vein graft to the 1st Diagonal is patent Saphenous Vein graft to the RPDA is patent Saphenous Vein graft to the RPDA has a distal lesion of 60 % Stress test from 06/03/2019: Exercise myocardial perfusion stress test. Conclusion: Abnormal exercise myocardial perfusion stress test with evidence of mid inferior ischemia at a moderate workload. Preserved ejection fraction. Carotid duplex 03/01/2023: Interpretation Summary Mild (<50%) stenosis right extracranial internal carotid. Mild (<50%) stenosis left extracranial internal carotid. Patent and antegrade vertebrals bilaterally. Carotid Duplex 10/16/2020: Interpretation Summary Irregular plague proximal right internal carotid with 50-69% stenosis <50% stenosis right external carotid Irregular calcific plague proximal left internal carotid with <50% stenosis <50% stenosis left external carotid Patent, antegrade vertebrals bilaterally No change from 12/06/18 Holter monitor from 08/09/2022: Sinus rhythm Minimum heart rate 39 bpm. Average heart rate 70 bpm. Maximal heart 112 bpm. Ventricular ectopy 1.4%. Supraventricular ectopy 3.1%. Longest R to R interval 1.9 seconds. No atrial fibrillation noted. No ventricular runs noted. The patient kept a 24-hour diary. No activity or symptoms recorded. Assessment and Plan Assessment and Plan (1) H/O coronary artery bypass surgery: Status: Resolved Comment: CABG x 3: CORCORAN to LAD, SVG to D1, SVG to RPDA 01/03/14 Plan: Patient has a history of coronary artery disease with bypass surgery in 2013. His most recent cardiac catheterization from 2019 demonstrated patency of the left internal mammary artery to the left anterior descending artery, and patency of the saphenous vein graft to the diagonal branch, posterior descending artery with a moderate lesion. He does acknowledge recent fatigue and shortness of breath with climbing stairs. His stress test from 08/31/2023 was abnormal at a low workload which may affect sensitivity for detection of the exact extent of ischemia. Would like to proceed with a cardiac catheterization to further assess this. Depending on results, further recommendations will be made.
--- NOTE | 2023-09-12 15:36 | RAD_ITS ---
INDICATION: Abnormal Stress Test EXAMINATION/TECHNIQUE: X-RAY - XR Chest 2 Views COMPARISON: Prior study dated: 01/09/2021 FINDINGS: LINES/DEVICES: None. LUNGS: Elevation of the right hemidiaphragm. No focal infiltrate is seen. No evidence of pleural effusions. MEDIASTINUM AND CARDIOVASCULAR STRUCTURES: Normal cardiac silhouette. Status post median sternotomy. BONES AND SOFT TISSUES: Mild senescent changes of the spine. RAD/Chest PA and Lateral IMPRESSION: No radiographic evidence of acute cardiopulmonary disease. Electronically Signed: Ean Goode MD at 9:07 EST ,
[2023-09-12 16:39] LABS: Absolute Lymphocyte Count 2.47 X10^3/uL (0.83-4.51); Absolute Neutrophil Count 5.5 X10^3/uL (2.0-7.7); Basophil# 0.05 X10^3/uL; Basophil% 0.6 % (0-1); Eosinophil# 0.18 X10^3/uL; Hematocrit 39.3 % (40-54); Hemoglobin 12.5 g/dL (13.0-16.5); Lymphocyte # 2.47 X10^3/ul (0.83-4.51); Lymphocyte % 27.4 % (19-41); Mean Corp Hgb Conc 31.8 g/dL (32-36); Mean Corpuscular Hgb 29.8 pg (27.0-32.0); Mean Corpuscular Volume 93.6 fL (80-94); Mean Platelet Vol. 10.1 fl (6.2-12.0); Monocyte# 0.84 X10^3/uL; Monocyte% 9.3 % (0-10); NRBC Flagged by Analyzer 0 % (0-5); Neutrophil # 5.45 X10^3/uL (2.7-7.7); Neutrophil % 60.4 % (47-70); Platelet Count 244 K/mm3 (150-450); RBC Distribution Width CV 14.7 % (11.6-14.6); RBC Distribution Width SD 49.9 fl (35.1-43.9)
[2023-09-12 17:17] LABS: Anion Gap 9 (5-15); BUN 35 mg/dL (7-18); BUN/Creat Ratio 27.1 RATIO (10-20); Calcium,Total 10.4 mg/dL (8.5-10.1); Chloride 111 mmol/L (98-107); Creatinine, Serum 1.29 mg/dL (0.70-1.30); EST Glomerular Filtration Rate 57 mL/min (>60); Est Glom Filt Rate - Afr Amer 69 mL/min (>60); Glucose 117 mg/dL (74-106); Potassium 4.8 mmol/L (3.5-5.1); Sodium Level 145 mmol/L (136-145)
[2023-09-21 08:55] VITALS: BMI 25.2
[2023-09-22 09:48] LABS: Bedside Glucose 111 mg/dL (74-106)
--- NOTE | 2023-09-26 14:26 | CL.D_ITS ---
Patient Name: GIA VIRAMONTES Study Date: 09/22/2023 Performing: Teddy Anaya MD Ht: 72 inches 182.88 cm : 1940 Wt: 186 lbs 84.37 kg Age: 83 Gender: male BSA: 2.07 PROCEDURE(S) PERFORMED [id number])LHC/COR/CABG CLINICAL PROFILE AND INDICATIONS Indications: Suspected CAD Heart Failure: None Stress/Imaging Date: 09/13/23Stress Test with SPECT MPI: Positive Low Risk CAD Presentations: No Sxs, no angina. CONCLUSIONS Patent saphenous vein grafts noted to the diagonal vessel as well as the right coronary artery. The CORCORAN to the LAD is presumed to be patent. RECOMMENDATIONS Medical therapy DESCRIPTION OF PROCEDURE The patient arrived to the procedure lab. The risks and benefits of the procedure as well as a full description of our services here and current unavailability of surgical backup were fully explained to the patient and/or their significant other prior to the catheterization. The Timeout was completed, verifying the correct patient and procedure. The patient's procedural site was prepped and draped in the usual fashion. Local anesthetic was given subcutaneously to right radial region with Lidocaine 2%. Using a modified Seldinger technique, arterial access was obtained via the right radial artery, a 6Fr sheath was inserted. Right Coronary Artery selective angiography was then performed in multiple views using a 5 Fr. 4.0 Warren catheter. Saphenous Vein graft to the RPDA selective angiography was performed in multiple views using a 5 Fr. 4.0 Warren catheter. Left Coronary Artery selective angiography was performed in multiple views using a 5 Fr. 4.0 Warren catheter. Saphenous Vein graft to the DIAG 1 selective angiography was performed in multiple views using a 5 Fr. 4.0 Warren catheter.The arterial sheath was pulled and a TR Band was applied for hemostasis CORONARY ANGIOGRAPHY DOMINANCE: Right Dominant LEFT HEART ASSESSMENT Left Ventricular Ejection Fraction: by Echo 55 % Normal LV wall motion Normal Left Ventricular systolic function LEFT MAIN: Angiographically normal LEFT ANTERIOR DESCENDING ARTERY: OSTIAL LAD: is occluded CIRCUMFLEX ARTERY: Mild luminal irregularities RIGHT CORONARY ARTERY: Dominant vessel with severely diseased proximal and mid right coronary artery and distal competitive flow noted GRAFTS: CORCORAN graft to the Mid LAD Previously noted to be patent Saphenous Vein graft to the 1st Diagonal is patent Saphenous Vein graft to the RPDA is patent COMPLICATIONS No Complications PROCEDURE MEDICATIONS Fentanyl 50 mcg IV Versed 1 mg IV Oxygen: 2 L/min via nasal cannula Heparin given IA 09/22/2023 10:51:02 Verapamil 2.5mg, Ntg 100mcgs, 3000 units of Heparin given IA 09/22/2023 10:51:02 SUMMARY OF HEMODYNAMIC DATA Time AIR REST ECG 09:26:30 AO 127/56 (84) SA 10:59:15 Signed By Teddy Anaya MD On 09/22/2023 11:19:53 Teddy Anaya MD
== END | disposition home or self-care (01) ==
LOC: CLSP 09:01
PROVIDERS: Nurse Practitioner Gerontology; PCP Family Medicine; Referring Provider Internal Medicine Cardiovascular Disease; Visit Provider Internal Medicine Cardiovascular Disease
DX: R94.39 Abnormal result of other cardiovascular function study (principal); E11.9 Type 2 diabetes mellitus without complications; I25.10 Atherosclerotic heart disease of native coronary artery without angina pectoris; Z95.1 Presence of aortocoronary bypass graft; I10 Essential (primary) hypertension; Z87.891 Personal history of nicotine dependence; Z82.49 Family history of ischemic heart disease and other diseases of the circulatory system; Z90.49 Acquired absence of other specified parts of digestive tract; Z95.5 Presence of coronary angioplasty implant and graft; R06.02 Shortness of breath
CPT/HCPCS: 36415; 71046; 80048; 82962; 85025; 93455; 99152; 99153; J7040; C1769; C1894; Q9967

== ENCOUNTER → 2023-11-23 | Outpatient (CLI) | payer MEDICARE, OTHER, SELFPAY | END | disposition home or self-care (01) | PROVIDERS: PCP Family Medicine; Referring Provider Podiatrist; Visit Provider Podiatrist | DX: L97.519 Non-pressure chronic ulcer of other part of right foot with unspecified severity (principal) | CPT/HCPCS: 87070; 87075; 87205 ==

== ENCOUNTER → 2023-12-12 | Outpatient (CLI) | payer MEDICARE, OTHER, SELFPAY ==
--- NOTE | 2023-12-12 10:54 | ART_ITS ---
Reason For Study: PVD Procedure A bilateral lower extremity continuous wave Doppler with analog waveform analysis,segmental pressures,and ankle brachial indexes without exercise. Left Segmental Pressures Left brachial= 144mmHg. Left posterior tibial artery = >254mmHg. Left dorsalis pedis artery = >254mmHg. Left digit = 83 mmHg. The left posterior tibial artery waveforms are biphasic. The left dorsalis pedis waveforms are biphasic. Right Segmental Pressures Right brachial= 145mmHg. Right calf = 184mmHg. Right posterior tibial artery = >254mmHg. Right dorsalis pedis artery = 107mmHg. Right digit = 95 mmHg. The right posterior tibial artery waveforms are biphasic. The right dorsalis pedis waveforms are biphasic. Indices The right ankle brachial index by the posterior tibial artery is N/C. The right ankle brachial index by the dorsalis pedis is 0.74. The right digital-brachial index is 0.66. The left ankle brachial index by the posterior tibial artery is N/C. The left ankle brachial index by the dorsalis pedis is N/C. The left digital-brachial index is 0.57. VL/Lower Ext Art Exam w/o Exercis Interpretation Summary Biphasic Doppler waveforms are noted at ankle level bilaterally. Pulse-volume r ecordings appear diminished at digital level bilaterally. The resting right ankle-brachial index is moderately diminished. The resting left ankle-brachial index could not be determined due t o the non- compressibility of the vasculature at ankle level on the left. Digital-brachial indices are mildly diminished bilaterally. There is evidence of arterial calcification at ankle level bilaterally, particu larly on the left. There is evidence of [id number] arterial occlusive disease in the lower e xtremities bilaterally. Ordering Physician: Naun Kaur Referring Physician: Sajan Rowley MD Performed By: Gilmar Khan, RVT
== END | disposition home or self-care (01) ==
LOC: CVS 10:52
PROVIDERS: PCP Family Medicine; Referring Provider Podiatrist; Visit Provider Podiatrist
DX: I73.89 Other specified peripheral vascular diseases (principal); L97.512 Non-pressure chronic ulcer of other part of right foot with fat layer exposed; E71.42 Carnitine deficiency due to inborn errors of metabolism
CPT/HCPCS: 93923

== ENCOUNTER 2024-01-06 20:39 | Inpatient (IN) | payer MEDICARE, OTHER, SELFPAY ==
[2024-01-06 20:40] VITALS: BP 152/74; PULSE 96; RESP 25; TEMP 38.3; O2SAT 91; BMI 24.5
--- NOTE | 2024-01-06 20:52 | EKG12_ITS ---
Test Reason : DYSRHYTHMIA Blood Pressure : / mmHG Vent. Rate : 094 BPM Atrial Rate : 094 BPM P-R Int : 190 ms QRS Dur : 108 ms QT Int : 346 ms P-R-T Axes : 022 -60 054 degrees QTc Int : 432 ms Normal sinus rhythm with sinus arrhythmia Left axis deviation Septal infarct , age undetermined Abnormal ECG Confirmed by KASIA FARLEY, EZIO ([id number]), television news video editor ARON DICKSON ([id number]) on 01/09/2024 5:59:02 AM Referred By: Confirmed By:EZIO PEDROZA MD
--- NOTE | 2024-01-06 20:55 | EX.ED.DYSGE1 ---
HPI <KAN Healy - Last Filed: 01/06/24 22:00> History of Present Illness Chief Complaint: General Illness Narrative Narrative: Patient is an 83-year-old male with history of CAD, bypass, hyperlipidemia, diabetes who presents to the emergency department for 1 day of fatigue, difficulty eating and drinking, fever and chills. The has been sick for couple days and is currently on medication. Per the patient's , the patient would not get out of the chair today he would continue to fall asleep and secondary to this behavior, she is here for evaluation. Patient did feel warm at triage and does have a fever. Did not take anything for his fever today. PFS <KAN Healy - Last Filed: 01/06/24 22:00> [facility] Medical History Hypothyroidism Stenosis of right carotid artery Essential (primary) hypertension Atherosclerosis of coronary artery of [place] heart without angina pectoris Personal history of malignant melanoma Nonhealing surgical wound Open wound of left forearm Former smoker Melanoma in situ of left upper extremity Vision problems Vascular disease Neuropathy Kidney stones Hearing problem Gout Cataracts, bilateral Arthritis Screening for colon cancer Gangrenous cholecystitis Hyperlipemia Diabetes mellitus Home Medications ?Medication ?Instructions ?Recorded ?Last Taken ?Type gemfibrozil 600 mg tablet 600 mg PO BID cholesterol 01/01/14 01/08/21 History allopurinol 300 mg tablet 300 mg PO DAILY GOUT 10/21/15 01/08/21 History pantoprazole 40 mg tablet,delayed 40 mg PO DAILY reflux 10/21/15 01/08/21 History release amlodipine 10 mg tablet 10 mg PO DAILY BP 05/21/19 09/22/23 History aspirin 81 mg tablet,delayed 81 mg PO DAILY 06/03/19 09/22/23 History release (Adult Aspirin Regimen) cyanocobalamin (vitamin B-12) 1,000 mcg PO DAILY 06/16/20 01/07/21 History 1,000 mcg capsule diphenhydramine 25 1 - 2 tab PO QHS PRN Sleep 01/08/21 01/07/21 23:00 History mg-acetaminophen 500 mg tablet (Acetaminophen PM) levothyroxine 50 mcg tablet 50 mcg PO DAILY THYROID 01/08/21 01/08/21 History gabapentin 800 mg tablet 800 mg PO TID 06/25/21 Unknown History lisinopril 40 mg tablet See Rx Instructions .Route 07/05/21 09/22/23 Rx .COMPLEX #90 tabs cholecalciferol (vitamin D3) 25 50 mcg PO DAILY 07/28/22 Unknown History mcg (1,000 unit) capsule glimepiride 4 mg tablet 4 mg PO DAILY 07/28/22 Unknown History metformin 500 mg tablet,extended 500 mg PO DAILY 07/28/22 Unknown History release 24 hr omega-3 fatty acids 1,000 mg 1,000 mg PO BID 07/28/22 Unknown History capsule (Fish Oil Concentrate) vitamins A,C,W-[id number]-ihvllc 4,296 1 cap PO BID 02/23/23 Unknown History mcg-226 mg-90 mg capsule (PreserVision AREDS) duloxetine 60 mg capsule,delayed 60 mg PO QHS #90 caps 10/31/23 Unknown Rx release Allergy/AdvReac Type Severity Reaction Status Date / Time atorvastatin calcium (From AdvReac body aches Verified 10/31/23 13:36 Lipitor) ezetimibe (From Zetia) AdvReac body aches Verified 10/31/23 13:36 rosuvastatin calcium (From AdvReac body aches Verified 10/31/23 13:36 Crestor) Family History (Updated 01/06/24 @ 23:[address] Monse Carpenter MD) Father Diabetes Hypertension High cholesterol Brother High cholesterol Mother Arthritis Heart disease Surgical History History of left heart catheterization (06/10/19) 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) Status post laparoscopic cholecystectomy Social History (Updated 01/06/24 @ 23:[address] Monse Carpenter MD) household members: spouse Smoking Status: Former smoker Tobacco: How many years used: 8 how long ago did patient quit smokin years ago second hand exposure: No alcohol intake: never substance use type: does not use caffeine: Yes Type: coffee Number of servings: 2 nadine/orthodox: Uatsdin seatbelt use: always additional social history: DOES NOT USE ASPIRIN DOES NOT USE IBUPROFEN ROS <KAN Healy - Last Filed: 01/06/24 22:00> ROS ED ROS Narrative Constitutional: Negative for weight loss. Positive for fever, chills, generalized weakness Eyes: Negative for vision loss, vision change, double vision ENT: Negative for any sore throat, ear pain, congestion Cardiovascular: Negative for any chest pain, tightness, palpitations Respiratory: Negative for any cough, sputum production, hemoptysis, orthopnea. Positive for dyspnea, dyspnea on exertion Gastrointestinal: Negative for any abdominal pain, nausea, vomiting, diarrhea, constipation, blood in stool, blood in vomit : Negative for any urinary frequency, dysuria, retention, blood in urine. Positive for decreased urine output Muscle skeletal: Negative for any neck pain, back pain. Positive generalized myalgias. Neurological: Negative for any headache, syncope, dizziness Skin: Negative for any rashes, itching, abrasions, lacerations Psychiatric: Negative for any depression, anxiety, stress, suicidal ideation, homicidal ideation Hematologic: Negative for any excessive bruising, easy bleeding EXAM <KAN Healy - Last Filed: 01/06/24 22:00> Physical Exam Narrative Exam Narrative: Vital signs reviewed. Patient was tachycardic as well as febrile on initial examination HEET: Head normocephalic atraumatic, TMs clear bilaterally. Posterior pharynx is clear, dry mucous membranes. Nares clear bilaterally. Neck: Supple with no lymphadenopathy or tenderness. No signs of meningismus. Cardiac: Tachycardic rate, systolic murmur, no gallops or rubs, equal peripheral pulses bilaterally. Respiratory: Diminished lung sounds right lower lung base, remainder is clear. No chest tenderness. Abdomen: Soft, nontender, nondistended. No abdominal bruit or pulsatile masses. No hepatosplenomegaly Extremities: No peripheral edema, no signs of gross trauma or deformity. Active full range of motion of all extremities. Neuro: Cranial nerves II through XII intact, no focal neurological deficits. Skin: Clean dry and intact with no rash, purpura, petechiae, vesicles or pustules. Backs/flank: No CVA tenderness, no midline spinal tenderness, no deformity. Psych: Normal mood and affect. No SI, HI or acute psychosis. Const Vital Signs: 01/06/24 20:40 01/06/24 20:45 01/06/24 20:54 Temperature 101.0 F H Temperature Source Oral Pulse Rate 96 Respiratory Rate 25 H Respiratory Effort Normal Non-Labored Respiratory Pattern Normal Blood Pressure 152/74 H Blood Pressure Mean 100 Pulse Ox 91 Oxygen Delivery Method Room Air Room Air Oxygen Flow Rate (L/min) 01/06/24 21:43 Temperature 99.6 F H Temperature Source Oral Pulse Rate 87 Respiratory Rate 24 H Respiratory Effort Respiratory Pattern Blood Pressure 138/69 H Blood Pressure Mean 92 Pulse Ox 96 Oxygen Delivery Method Nasal Cannula Oxygen Flow Rate (L/min) 2 <Dr. Amauri Chang DO - Last Filed: 01/06/24 23:14> Physical Exam Const Vital Signs: 01/06/24 20:40 01/06/24 20:45 01/06/24 20:54 Temperature 101.0 F H Temperature Source Oral Pulse Rate 96 Respiratory Rate 25 H Respiratory Effort Normal Non-Labored Respiratory Pattern Normal Blood Pressure 152/74 H Blood Pressure Mean 100 Pulse Ox 91 Oxygen Delivery Method Room Air Room Air Oxygen Flow Rate (L/min) 01/06/24 21:43 Temperature 99.6 F H Temperature Source Oral Pulse Rate 87 Respiratory Rate 24 H Respiratory Effort Respiratory Pattern Blood Pressure 138/69 H Blood Pressure Mean 92 Pulse Ox 96 Oxygen Delivery Method Nasal Cannula Oxygen Flow Rate (L/min) 2 [facility] <KAN Healy - Last Filed: 01/06/24 22:00> [facility] Lab Data Labs: Laboratory Results - last 24 hr 01/06/24 01/06/24 21:07 21:20 WBC 11.2 H RBC 4.04 L Hgb 12.4 L Hct 38.8 L MCV 96.0 H MCH 30.7 MCHC 32.0 RDW Std Deviation 53.5 H RDW Coeff of Yan 15.0 H Plt Count 186 MPV 9.7 Immature Gran % (Auto) 0.400 Neut % (Auto) 84.1 H Lymph % (Auto) 5.6 L [place] % (Auto) 9.4 Eos % (Auto) 0.3 Baso % (Auto) 0.2 Absolute Neuts (auto) 9.5 H Absolute Lymphs (auto) 0.63 L Nucleated RBC % 0 PT 15.1 H INR 1.2 APTT 35.4 Sodium 142 Potassium 4.0 Chloride 108 H Carbon Dioxide 27.0 Anion Gap 7 BUN 17 Creatinine 1.25 Estim Creat Clear Calc 50.01 Est GFR (MDRD) Af Amer 71 Est GFR (MDRD) Non-Af 59 L BUN/Creatinine Ratio 13.6 Glucose 187 H Lactic Acid 1.9 Calcium 9.5 Total Bilirubin 0.40 AST 33 ALT 22 Alkaline Phosphatase 110 Total Protein 8.0 Albumin 3.5 Globulin 4.5 H Albumin/Globulin Ratio 0.8 L Urine Color Yellow Urine Clarity Clear Urine pH 6.0 Ur Specific [place] 1.015 Urine Protein 30 H Urine Glucose (UA) Normal Urine Ketones Negative Urine Occult Blood 250 H Urine Nitrite Negative Urine Bilirubin Negative Urine Urobilinogen 1 H Ur Leukocyte Esterase Negative Urine RBC 25-50 SEEN Urine WBC 0-5 SEEN Ur Squamous Epith Cells 0 SEEN Urine Bacteria 0 SEEN Urine Mucus 0 SEEN Radiography Diagnostic Testing: Clinical Impression(s) from Imaging Studies Chest X-Ray 01/06/24 21:44 IMPRESSION: Left basilar subsegmental atelectasis versus scarring. No infiltrates. Electronically Signed: Vero Aleman MD at 22:17 EDT , Treatment and Re-Evaluation :: Differential diagnosis includes however is not limited to: Community-acquired pneumonia, UTI, viral syndrome, such as COVID-19, influenza, RSV, other viral-like illness. Patient appears to be in no obvious distress however patient's vital signs did show some tachycardia, hypoxia, patient was febrile. Patient secondary to the vital signs will be given a septic workup including 2 sets of blood cultures, lactic acid. Chest x-ray, urinalysis as well as IV fluids, oral Tylenol be given. Patient will be reevaluated. Patient's CBC does show leukocytosis with white blood count 11.2, patient's hemoglobin is 12.4, this is chronic for the patient. Neutrophils 84, patient's PT/INR shows a PT of 15.1, INR and APTT are negative. Chemistries are grossly unremarkable. Liver panel is unremarkable. Patient's temperature did improve, patient's heart rate has decreased, patient is 96% on 2 L. Currently waiting for chest x-ray, viral panel. Urinalysis showed 25-50 red blood cells, no acute bacteria. <Dr. Amauri Chang, DO - Last Filed: 01/06/24 23:14> MDM MDM Narrative Medical decision making narrative: I have personally performed a face to face assessment of the patient and have reviewed the BRANDON Note. I performed a substantive portion of the visit including all aspects of the following. My cook findings include: History: Patient presents with weakness and aching that became worse today. Patient states it is gradually got worse. Patient states he had difficulty getting out of his chair today due to weakness. Patient states he feels achy all over. Patient states he has been wanting to sleep all day. Patient states nothing makes his symptoms better and nothing makes them worse. Patient admits to a fever at home. Patient also admits to a sore throat and rhinorrhea. Exam: Vital signs are stable. Patient is febrile here with a temperature of 101. Patient is in no acute distress. Oral mucosa is pink and moist. Neck is supple. Trachea is midline. There is no JVD. Heart was regular rate and rhythm. Lungs are diminished in the bases. There is adequate respiratory effort noted. Abdomen is soft. Bowel sounds are normal. There is no tenderness. Cranial nerves II through XII are intact. There are no focal motor or sensory deficits noted. Medical Decision Making: Differential diagnosis includes pneumonia, sepsis, urinary tract infection, viral illness, cardiac dysrhythmia, cardiac ischemia, and coagulopathy. EKG will be obtained to assess for cardiac dysrhythmia and cardiac ischemia. Chest x-ray will be obtained to assess for pneumonia and pneumothorax. COVID-19, influenza, and RSV PCR will be obtained to assess for viral illness. CBC will be obtained to assess for leukocytosis or anemia. Comprehensive metabolic profile will be obtained to assess for hepatic function, renal function, and electrolyte abnormality. Urinalysis will be obtained to assess for urinary tract infection. Serum lactate will be obtained to assess for sepsis. PT with INR and PTT will be obtained to assess for coagulopathy. Urine culture will be obtained to assess for urinary tract infection. Blood cultures will be obtained to assess for sepsis. Patient was given IV fluids and Tylenol here. EKG was obtained. On my independent interpretation, it shows a normal sinus rhythm with a rate of 94. NE interval, QRS interval, and QTc intervals are within normal limits. There is left axis deviation at -60. There is an old septal infarct. There is no acute infarct noted. Chest x-ray was obtained. There are 2 views. On my independent interpretation, there is some atelectasis versus scarring in the left base. There is no acute infiltrate. Radiologist also interpreted the x-rays and agrees. CBC was reviewed. There is a slight leukocytosis of 11.2. Hemoglobin was 12.4 and hematocrit was 38.8. Platelets were normal. PT with INR and PTT were reviewed. PT was 15.1 and INR is 1.2. PTT was normal at 35.4. Comprehensive metabolic profile was reviewed and was essentially within normal limits. Urinalysis was reviewed. There is no evidence of urinary tract infection. Occult blood was 250 there were 25-50 red blood cells. COVID-19 PCR was reviewed and was negative. Influenza PCR was reviewed and was negative for influenza A and influenza B. RSV PCR was reviewed and was negative. Patient was feeling better on reevaluation. Patient was advised of his findings. While sitting in the bed talking on room air, patient's oxygen saturations dropped to 89%. Because of this, I recommended admission to the hospital. Case was discussed with the hospitalist. She will admit the patient to her service. Patient understood and was agreeable with the plan. All questions were answered. Lab Data Labs: Laboratory Results - last 24 hr 01/06/24 01/06/24 21:07 21:20 WBC 11.2 H RBC 4.04 L Hgb 12.4 L Hct 38.8 L MCV 96.0 H MCH 30.7 MCHC 32.0 RDW Std Deviation 53.5 H RDW Coeff of Yan 15.0 H Plt Count 186 MPV 9.7 Immature Gran % (Auto) 0.400 Neut % (Auto) 84.1 H Lymph % (Auto) 5.6 L [place] % (Auto) 9.4 Eos % (Auto) 0.3 Baso % (Auto) 0.2 Absolute Neuts (auto) 9.5 H Absolute Lymphs (auto) 0.63 L Nucleated RBC % 0 PT 15.1 H INR 1.2 APTT 35.4 Sodium 142 Potassium 4.0 Chloride 108 H Carbon Dioxide 27.0 Anion Gap 7 BUN 17 Creatinine 1.25 Estim Creat Clear Calc 50.01 Est GFR (MDRD) Af Amer 71 Est GFR (MDRD) Non-Af 59 L BUN/Creatinine Ratio 13.6 Glucose 187 H Lactic Acid 1.9 Calcium 9.5 Total Bilirubin 0.40 AST 33 ALT 22 Alkaline Phosphatase 110 Total Protein 8.0 Albumin 3.5 Globulin 4.5 H Albumin/Globulin Ratio 0.8 L Urine Color Yellow Urine Clarity Clear Urine pH 6.0 Ur Specific [place] 1.015 Urine Protein 30 H Urine Glucose (UA) Normal Urine Ketones Negative Urine Occult Blood 250 H Urine Nitrite Negative Urine Bilirubin Negative Urine Urobilinogen 1 H Ur Leukocyte Esterase Negative Urine RBC 25-50 SEEN Urine WBC 0-5 SEEN Ur Squamous Epith Cells 0 SEEN Urine Bacteria 0 SEEN Urine Mucus 0 SEEN Radiography Diagnostic Testing: Clinical Impression(s) from Imaging Studies Chest X-Ray 01/06/24 21:44 IMPRESSION: Left basilar subsegmental atelectasis versus scarring. No infiltrates. Electronically Signed: Vero Aleman MD at 22:17 EDT , EKG Initial EKG: Attestation: I personally reviewed and interpreted this EKG as follows: Interpretation: Sinus Rhythm and Non-Specific ST Changes Discharge Plan Dx/Rx/DC Orders Clinical Impression: Fever, Hypoxia, Acute viral syndrome Disposition Disposition: Acute Care [facility]
[2024-01-06] MEDS: Acetaminophen 500 MG Tablet 1000 MG PO (21:09)
[2024-01-06] MEDS: 0.9% Normal Saline (1000mL) 1,000 ML 999 ML IV (21:09)
[2024-01-06 21:27] LABS: Absolute Lymphocyte Count 0.63 X10^3/uL (0.83-4.51); Absolute Neutrophil Count 9.5 X10^3/uL (2.0-7.7); Basophil# 0.02 X10^3/uL; Basophil% 0.2 % (0-1); Eosinophil# 0.03 X10^3/uL; Eosinophils% 0.3 % (0-5); Hematocrit 38.8 % (40-54); Hemoglobin 12.4 g/dL (13.0-16.5); Lymphocyte # 0.63 X10^3/ul (0.83-4.51); Lymphocyte % 5.6 % (19-41); Mean Corpuscular Hgb 30.7 pg (27.0-32.0); Mean Platelet Vol. 9.7 fl (6.2-12.0); Monocyte# 1.06 X10^3/uL; Monocyte% 9.4 % (0-10); NRBC Flagged by Analyzer 0 % (0-5); Neutrophil # 9.46 X10^3/uL (2.7-7.7); Neutrophil % 84.1 % (47-70); Platelet Count 186 K/mm3 (150-450); RBC Distribution Width SD 53.5 fl (35.1-43.9); Red Blood Count 4.04 M/mm3 (4.6-6.2); White Blood Count 11.2 K/mm3 (4.4-11.0)
[2024-01-06 21:33] LABS: Bacteria 0 SEEN /hpf (None Seen); Mucous, Urine 0 SEEN /hpf (<or=2+); Squamous Epithelial Cells - UA 0 SEEN /hpf (0-5)
[2024-01-06 21:34] LABS: International Normalized Ratio 1.2; Prothrombin Time (Protime)PT. 15.1 SECONDS (11.7-14.9)
[2024-01-06 21:34] LABS: Color, Urine Yellow (Yellow); Glucose, Dipstick Normal (Normal); Ketone-Dipstick Negative (Negative); Leukocyte Esterase-Dipstick Negative /ul (Negative); Nitrite-Dipstick Negative (Negative); Occult Blood-Urine 250 /ul (Negative); Protein-Dipstick 30 mg/dl (Negative); Specific Gravity, Urine 1.015 (1.002-1.030); Urine Bilirubin Dipstick Negative (Negative); Urine Clarity Clear (Clear); Urine Urobilinogen 1 mg/dl (Normal)
[2024-01-06 21:35] LABS: Partial Thromboplast Time 35.4 Seconds (24.1-36.2)
[2024-01-06 21:39] LABS: Red Blood Cells-Urine 25-50 SEEN /hpf (0-5); White Blood Cells 0-5 SEEN /hpf (0-5)
[2024-01-06 21:39] LABS: ALB/GLOB Ratio 0.8 RATIO (0.9-2.4); AST(SGOT) 33 U/L (15-37); Alanine Aminotransfer ALT/SGPT 22 U/L (16-61); Albumin, Serum 3.5 g/dL (3.2-5.0); Alkaline Phosphatase 110 U/L (45-117); Anion Gap 7 (5-15); BUN 17 mg/dL (7-18); BUN/Creat Ratio 13.6 RATIO (10-20); Calcium,Total 9.5 mg/dL (8.5-10.1); Chloride 108 mmol/L (98-107); Creatinine, Serum 1.25 mg/dL (0.70-1.30); EST Glomerular Filtration Rate 59 mL/min (>60); Est Glom Filt Rate - Afr Amer 71 mL/min (>60); Estimated Creatinine Clearance 50.01 ml/min; Globulin 4.5 g/dL (2.2-4.2); Glucose 187 mg/dL (74-106); Sodium Level 142 mmol/L (136-145)
[2024-01-06 21:43] VITALS: BP 138/69; PULSE 87; RESP 24; TEMP 37.6; O2SAT 96
--- NOTE | 2024-01-06 21:44 | RAD_ITS ---
INDICATION: cough EXAMINATION/TECHNIQUE: X-RAY - XR Chest 2 Views COMPARISON: 09/12/2023 FINDINGS: LINES/DEVICES: None. LUNGS: No consolidation. Reticular opacity at the left lung base may be scarring or subsegmental atelectasis. No pneumothorax. MEDIASTINUM: Unremarkable. CARDIAC SIL[place]ETTE: Not enlarged. Sternal wires. BONES AND SOFT TISSUES: No acute abnormalities. RAD/Chest PA and Lateral IMPRESSION: Left basilar subsegmental atelectasis versus scarring. No infiltrates. Electronically Signed: Vero Aleman MD at 22:17 EDT ,
[2024-01-06 22:09] LABS: Lactic Acid 1.9 mmol/L (0.4-1.9)
[2024-01-06 22:50] VITALS: O2SAT 92
--- NOTE | 2024-01-06 23:08 | PCM.HP.STD ---
HPI - General General Date of Admission: 01/06/24 Date of Service: 01/06/24 Chief Complaint: Fatigue, malaise, weakness, URI symptoms. HPI Narrative The patient is an 83 y/o M w/ PMHx: CKD stage III unclear subtype, Chronic anemia, Former tobacco use, Hypothyroidism, GERD, HTN, HLD, CAD s/p CABG, Gout, Diabetes mellitus type II w/ chronic neuropathy, PAD, Carotid disease who presents to the [facility] ED on 01/06/24 with history of fatigue, malaise, weakness and dizziness sore throat and rhinorrhea as well as myalgias starting over the last couple days but more so a.m. on day of presentation with elevated temperature of 101 and decreased appetite over the last week prompting ED transition. Patient unfortunately with this ongoing has had difficulty with oral intake including both eating and drinking. His is also been sick for the last couple days with a URI, diagnosed with bronchitis however she does have underlying lung disease with chronic cough component also. Reportedly the patient was unable to even get out of the chair today as he was significantly fatigued and lethargic frequently falling asleep. Workup in the ED included T101, heart rate 96, BP 150/74, respiratory rate 25, 91% on room air--> T91.6, heart rate 87, BP 138/69, respiratory rate 24, 96% on 2 L nasal cannula with desaturation to 87-88% on room air with activity per discussion with RN, CBC with WC 11.2, human 12.4, MCV 96, platelet 186 with left shift and lymphopenia, coags with PT 15.1 otherwise unremarkable, lactic acid 1.9, blood culture x 2 pending per ED, urine culture pending per ED, UA not marked appearing, rapid SARS COVID/influenza/RSV PCR negative, chest x-ray with left basilar subsegmental atelectasis versus scarring with otherwise no acute cardiopulmonary findings, EKG with sinus rhythm with no acute evidence of ischemia. In the ED patient administered 1000 mg p.o. Tylenol x 1 as well as 1 L normal saline. [facility] Medical History Hypothyroidism Stenosis of right carotid artery Essential (primary) hypertension Atherosclerosis of coronary artery of [place] heart without angina pectoris Personal history of malignant melanoma Nonhealing surgical wound Open wound of left forearm Former smoker Melanoma in situ of left upper extremity Vision problems Vascular disease Neuropathy Kidney stones Hearing problem Gout Cataracts, bilateral Arthritis Screening for colon cancer Gangrenous cholecystitis Hyperlipemia Diabetes mellitus Home Medications ?Medication ?Instructions ?Recorded ?Last Taken ?Type gemfibrozil 600 mg tablet 600 mg PO BID cholesterol 01/01/14 01/08/21 History allopurinol 300 mg tablet 300 mg PO DAILY GOUT 10/21/15 01/08/21 History pantoprazole 40 mg tablet,delayed 40 mg PO DAILY reflux 10/21/15 01/08/21 History release amlodipine 10 mg tablet 10 mg PO DAILY BP 05/21/19 09/22/23 History aspirin 81 mg tablet,delayed 81 mg PO DAILY 06/03/19 09/22/23 History release (Adult Aspirin Regimen) cyanocobalamin (vitamin B-12) 3,000 mcg PO DAILY 06/16/20 01/07/21 History 1,000 mcg capsule levothyroxine 50 mcg tablet 50 mcg PO DAILY THYROID 01/08/21 01/08/21 History gabapentin 800 mg tablet 800 mg PO TID 06/25/21 Unknown History lisinopril 40 mg tablet See Rx Instructions .Route 07/05/21 09/22/23 Rx .COMPLEX #90 tabs cholecalciferol (vitamin D3) 25 100 mcg PO DAILY 07/28/22 Unknown History mcg (1,000 unit) capsule glimepiride 4 mg tablet 4 mg PO DAILY 07/28/22 Unknown History metformin 500 mg tablet,extended 500 mg PO DAILY 07/28/22 Unknown History release 24 hr vitamins A,C,B-wovy-mpfvxl 4,296 1 cap PO BID 02/23/23 Unknown History mcg-226 mg-90 mg capsule (PreserVision AREDS) duloxetine 60 mg capsule,delayed 60 mg PO QHS #90 caps 10/31/23 Unknown Rx release omega 5-abf-xss-fish oil 1,200 mg 2 cap PO DAILY 01/06/24 Unknown History (144 mg-216 mg) capsule (Fish Oil) Allergy/AdvReac Type Severity Reaction Status Date / Time atorvastatin calcium (From AdvReac body aches Verified 10/31/23 13:36 Lipitor) ezetimibe (From Zetia) AdvReac body aches Verified 10/31/23 13:36 rosuvastatin calcium (From AdvReac body aches Verified 10/31/23 13:36 Crestor) Family History (Updated 01/06/24 @ 23:[address] Monse Carpenter MD) Father Diabetes Hypertension High cholesterol Brother High cholesterol Mother Arthritis Heart disease Surgical History History of left heart catheterization (06/10/19) 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) Status post laparoscopic cholecystectomy Social History (Updated 01/06/24 @ 23:[address] Monse Carpenter MD) household members: spouse Smoking Status: Former smoker Tobacco: How many years used: 8 how long ago did patient quit smokin years ago second hand exposure: No alcohol intake: never substance use type: does not use caffeine: Yes Type: coffee Number of servings: 2 nadine/anabaptist: [employer] seatbelt use: always additional social history: DOES NOT USE ASPIRIN DOES NOT USE IBUPROFEN ROS ROS Narrative Admission Review of Systems: CONSTITUTIONAL: No weight loss, + fever, chills, weakness or fatigue. HEENT: + Congestion, rhinorrhea, sore throat. Eyes: No visual loss, blurred vision, double vision or yellow sclerae. Ears, Nose, Throat: No hearing loss, sneezing. SKIN: No rash or itching, lesions, wounds. CARDIOVASCULAR: No chest pain, chest pressure or chest discomfort, palpitations, edema, orthopnea, syncopal events. RESPIRATORY: No shortness of breath, cough or sputum, wheezing, hemoptysis. GASTROINTESTINAL: + anorexia. No nausea, vomiting or diarrhea, abdominal pain, melena, BRBPR. GENITOURINARY: No dysuria, frequency, urgency or retention. NEUROLOGICAL: No headache, dizziness, syncope, paralysis, ataxia, numbness or tingling in the extremities, focal weakness, change in bowel or bladder control, seizure. MUSCULOSKELETAL: + muscle, back pain, joint pain or stiffness. HEMATOLOGIC: + Chronic anemia, easy bleeding/bruising. LYMPHATICS: No enlarged nodes. No history of splenectomy. PSYCHIATRIC: + History of anxiety and depression. ENDOCRINOLOGIC: No reports of sweating, cold or heat intolerance. No polyuria or polydipsia. ALLERGIES: No history of asthma, hives, eczema or rhinitis. Vital Signs Vital Signs Vital Signs: 01/06/24 20:40 01/06/24 20:45 01/06/24 20:54 Temperature 101.0 F H Temperature Source Oral Pulse Rate 96 Respiratory Rate 25 H Respiratory Effort Normal Non-Labored Respiratory Pattern Normal Blood Pressure 152/74 H Blood Pressure Mean 100 Pulse Ox 91 Oxygen Delivery Method Room Air Room Air Oxygen Flow Rate (L/min) 01/06/24 21:43 Temperature 99.6 F H Temperature Source Oral Pulse Rate 87 Respiratory Rate 24 H Respiratory Effort Respiratory Pattern Blood Pressure 138/69 H Blood Pressure Mean 92 Pulse Ox 96 Oxygen Delivery Method Nasal Cannula Oxygen Flow Rate (L/min) 2 Weight Weight: 180 lb 15.992 oz Body Mass Index (BMI) 24.5 Physical Exam Narrative Physical Examination: General: Awake, alert, oriented x 3 and cooperative, seated upright in the ED bed, fatigued, mildly ill-appearing. Skin: Normal color, normal turgor, no icterus, no cyanosis except for occasional staged ecchymoses. HEENT: AT/NC, EOMI, PERRLA, moderately dry MM, no carotid bruits or JVD noted. Lungs: Diminished, greater bases, right mildly greater than left but no evidence of any distress, normal respiratory rate, no rales, ronchi or wheezing. Heart: Regular rate and rhythm; no gallop, rub audible. Abdomen: Soft, NTTP, ND, mildly hyperactive BS, no appreciated HSM. Extremities: No cyanosis, clubbing, or edema. Neurological: Patient awake, alert, oriented as noted, cognitive function intact; pupils equally reactive to light and accommodation, cranial nerves grossly normal, moving all 4 extremities, no focal deficits, strength moderately globally decreased secondary to acute presentation. Psychiatric: Affect appears flat, fatigued, mildly ill-appearing, no acute evidence of depressive or anxiety feelings but does have underlying history. Results Lab / Micro Data 01/06/24 21:07 01/06/24 21:07 Labs: Laboratory Results - last 24 hr 01/06/24 21:07: WBC 11.2 H, RBC 4.04 L, Hgb 12.4 L, Hct 38.8 L, MCV 96.0 H, MCH 30.7, MCHC 32.0, RDW Std Deviation 53.5 H, RDW Coeff of Yan 15.0 H, Plt Count 186, MPV 9.7, Immature Gran % (Auto) 0.400, Neut % (Auto) 84.1 H, Lymph % (Auto) 5.6 L, [place] % (Auto) 9.4, Eos % (Auto) 0.3, Baso % (Auto) 0.2, Absolute Neuts (auto) 9.5 H, Absolute Lymphs (auto) 0.63 L, Nucleated RBC % 0, PT 15.1 H, INR 1.2, APTT 35.4, Sodium 142, Potassium 4.0, Chloride 108 H, Carbon Dioxide 27.0, Anion Gap 7, BUN 17, Creatinine 1.25, Estim Creat Clear Calc 50.01, Est GFR (MDRD) Af Amer 71, Est GFR (MDRD) Non-Af 59 L, BUN/Creatinine Ratio 13.6, Glucose 187 H, Lactic Acid 1.9, Calcium 9.5, Total Bilirubin 0.40, AST 33, ALT 22, Alkaline Phosphatase 110, Total Protein 8.0, Albumin 3.5, Globulin 4.5 H, Albumin/Globulin Ratio 0.8 L 01/06/24 21:20: Urine Color Yellow, Urine Clarity Clear, Urine pH 6.0, Ur Specific [place] 1.015, Urine Protein 30 H, Urine Glucose (UA) Normal, Urine Ketones Negative, Urine Occult Blood 250 H, Urine Nitrite Negative, Urine Bilirubin Negative, Urine Urobilinogen 1 H, Ur Leukocyte Esterase Negative, Urine RBC 25-50 SEEN, Urine WBC 0-5 SEEN, Ur Squamous Epith Cells 0 SEEN, Urine Bacteria 0 SEEN, Urine Mucus 0 SEEN Micro: Microbiology 01/06/24 21:20 Mucosa - Nasopharyngeal SARS-CoV-2, Influenza & RSV (PCR) - Final Imaging Radiology Impression Chest X-Ray 01/06/24 21:44 IMPRESSION: Left basilar subsegmental atelectasis versus scarring. No infiltrates. Electronically Signed: Vero Aleman MD at 22:17 EDT , Assessment & Plan Assessment/Plan (1) Acute viral syndrome: (2) Hypoxia: PLAN: Plan The patient is an 83 y/o M w/ PMHx: CKD stage III unclear subtype, Chronic anemia, Former tobacco use, Hypothyroidism, GERD, HTN, HLD, CAD s/p CABG, Gout, Diabetes mellitus type II w/ chronic neuropathy, PAD, Carotid disease who presents to the [facility] ED on 01/06/24 with history of fatigue, malaise, weakness and dizziness sore throat and rhinorrhea as well as myalgias starting over the last couple days but more so a.m. on day of presentation with elevated temperature of 101 and decreased appetite over the last week prompting ED transition. #1. Acute Hypoxia secondary to Suspected Acute Viral Syndrome: Will admit to [facility], maintain on oxygen with wean as tolerated, continue ATC budesonide, PRN albuterol, HOB, IS parameters w/ pending Bld cx x 2 from ED, UA not marked appearing but urine culture pending per ED, full respiratory viral panel requested, sputum Cx if able to induce, urine antigens, procalcitonin requested, maintain on fall precautions, will repeat CXR in AM following overnight judicious hydration, PT/OT/case management consult for discharge planning. #2. PAD/Carotid disease: Will continue patient home aspirin therapy, hypertensive regimen, diabetic regimen with adjustments as noted, not on statin therapy. 12/12/2023 ABIs with biphasic Doppler waveforms noted at ankle level bilaterally, pulse volume recordings diminished at digital level bilaterally, resting right JANETH moderately diminished, resting left JANETH inability to be determined secondary to noncompressibility, digital brachial indices mildly diminished bilaterally with evidence of mild to moderate arterial occlusive disease in the lower extremities bilaterally. Encourage continued follow-up with vascular as previously arranged. Patient's carotid disease is being monitored with no previous intervention. #3. CAD: Status post CABG 2013 (left internal mammary artery to the left anterior descending artery, saphenous vein graft to the diagonal branch, saphenous vein graft to posterior descending artery), continue aspirin, lisinopril, not on beta-jennifer therapy, not on statin therapy secondary to intolerance, encourage continued outpatient follow-up with cardiology as previously arranged. Most recent cardiac catheterization 09/26/2023 with patent saphenous vein graft noted to the diagonal vessel as well as the right coronary artery and CORCORAN to LAD presumed patent with recommended continued medical therapy at that time. #4. Chronic Kidney Disease Stage III, unclear subtype: Admission BUN/Cr 17/1.25, GFR 57, baseline renal function 1.0-1.3, repeat BMP in AM. #5. Chronic anemia, currently appears macrocytic: Admission hemoglobin 12.4, MCV 96, baseline hemoglobin primarily 12-13 range, most recently prior to this 08/17/2023 hemoglobin 13.4, will continue to trend CBC. #6. Hypertension: Continue home regimen including lisinopril, amlodipine, PRN hydralazine. #7. Hyperlipidemia: We will continue patient home gemfibrozil regimen. #8. Diabetes mellitus type II with polyneuropathy: Hold oral home regimen, ADA diet, accu checks w/ ISS, continue gabapentin as well as duloxetine home regimen. #9. Anxiety and depression: We will continue patient home duloxetine regimen. #10. Former tobacco use: Encourage continued tobacco cessation. #11. Hypothyroidism: We will continue patient on levothyroxine regimen. #12. GERD: We will continue patient on PPI. #13. Gout: We will continue patient on allopurinol regimen. #14. DVT prophylaxis: Lovenox. #15. CODE status: Patient YARELI is his primary and living will is currently in place. Discussed CODE status at length including difference between FULL code, DNR-CCA and DNR-CC status. Following discussions about the differences in these status, requested Full Code status. Advanced Care Planning Face to Face Time: 16 minutes. Charges/Coding Visit Charges Inpatient E&M: 87376 Init Hosp L2 Procedures Hospitalists Procedures: [id number] Advncd Care Plan 30 Min
[2024-01-06 23:26] VITALS: BP 106/66; PULSE 85; RESP 14; TEMP 36.9; O2SAT 93
[2024-01-06 23:59] VITALS: BP 114/55; PULSE 83; RESP 18; TEMP 36.8; O2SAT 94
[2024-01-07] VITALS (8 sets, daily range): BP systolic 111–146; BP diastolic 51–65; PULSE 72–98; RESP 18; TEMP 36.7–37.1; O2SAT 92–97; BMI 24.0
[2024-01-07 00:01] LABS: Procalcitonin 0.75 ng/mL (0.00-0.09)
--- NOTE | 2024-01-07 00:11 | NURSING ---
patient states med list was given to the ER.
[2024-01-07] MEDS: 0.9% Normal Saline (1000mL) 1,000 ML 100 ML IV (03:14)
[2024-01-07] MEDS: Levothyroxine 50 MCG Tablet PO (06:04)
[2024-01-07] MEDS: Gabapentin 800 MG Tablet PO ×2 (06:04→14:44)
[2024-01-07 06:31] LABS: Absolute Lymphocyte Count 1.33 X10^3/uL (0.83-4.51); Absolute Neutrophil Count 9.3 X10^3/uL (2.0-7.7); Basophil# 0.03 X10^3/uL; Basophil% 0.3 % (0-1); Eosinophil# 0.01 X10^3/uL; Eosinophils% 0.1 % (0-5); Hematocrit 31.7 % (40-54); Hemoglobin 10.1 g/dL (13.0-16.5); Lymphocyte # 1.33 X10^3/ul (0.83-4.51); Lymphocyte % 11.1 % (19-41); Mean Corp Hgb Conc 31.9 g/dL (32-36); Mean Corpuscular Hgb 30.8 pg (27.0-32.0); Mean Corpuscular Volume 96.6 fL (80-94); Mean Platelet Vol. 9.3 fl (6.2-12.0); Monocyte# 1.25 X10^3/uL; Monocyte% 10.4 % (0-10); NRBC Flagged by Analyzer 0 % (0-5); Neutrophil # 9.32 X10^3/uL (2.7-7.7); Neutrophil % 77.8 % (47-70); Platelet Count 150 K/mm3 (150-450); RBC Distribution Width CV 15.1 % (11.6-14.6); Red Blood Count 3.28 M/mm3 (4.6-6.2)
[2024-01-07] MEDS: Budesonide Respules 0.5 MG/2 ML AMPUL.NEB. INHALATION (06:50)
--- NOTE | 2024-01-07 07:00 | RAD_ITS ---
STUDY: XR Chest 2 Views 01/07/2024 7:43 AM REASON FOR EXAM: Male, 83 years old. Hypoxia COMPARISON: Study done yesterday TECHNIQUE: XR Chest 2 Views FINDINGS: There is no demonstrated pleural abnormality. There are multiple median sternotomy wires. There is an elevated right hemidiaphragm. Stable left lower lobe atelectasis. Normal heart size. Normal mediastinum. Normal anamaria. Prominent appearing increased interstitial lung markings. Normal visualized pulmonary arteries. There is atherosclerotic calcification of the aortic arch with tortuosity. There are diffuse degenerative changes of the visualized thoracic spine. There is degenerative osteoarthritis of the bilateral shoulders. There are no acute findings of the upper abdomen. RAD/Chest PA and Lateral IMPRESSION: There are no acute findings. Electronically Signed: Jonathan Dunbar MD at 14:36 EDT ,
[2024-01-07 07:27] LABS: ALB/GLOB Ratio 0.7 RATIO (0.9-2.4); AST(SGOT) 26 U/L (15-37); Alanine Aminotransfer ALT/SGPT 17 U/L (16-61); Albumin, Serum 2.6 g/dL (3.2-5.0); Alkaline Phosphatase 81 U/L (45-117); Anion Gap 7 (5-15); BUN 17 mg/dL (7-18); BUN/Creat Ratio 16.5 RATIO (10-20); Calcium,Total 8.4 mg/dL (8.5-10.1); Chloride 111 mmol/L (98-107); Creatinine, Serum 1.03 mg/dL (0.70-1.30); EST Glomerular Filtration Rate 73 mL/min (>60); Est Glom Filt Rate - Afr Amer 89 mL/min (>60); Estimated Creatinine Clearance 60.69 ml/min; Globulin 3.7 g/dL (2.2-4.2); Glucose 146 mg/dL (74-106); Potassium 3.5 mmol/L (3.5-5.1); Protein, Total 6.3 g/dL (6.4-8.2); Sodium Level 142 mmol/L (136-145)
--- NOTE | 2024-01-07 08:24 | PN.HOSP_ITS ---
Reason for Visit Reason for Visit: Diagnoses Viral infection, unspecified (01/06/24) Hypoxemia (01/06/24) Subjective Subjective Feels much better today. Objective Data Objective Data Vital Signs: Vital Signs Temp Pulse Resp BP Pulse Ox O2 Del Method O2 Flow Rate 36.8 C 79 18 124/65 H 95 Nasal Cannula 2 01/07/24 07:34 01/07/24 07:34 01/07/24 07:34 01/07/24 07:34 01/07/24 07:34 01/07/24 07:34 01/07/24 07:34 Oxygen Flow Rate (L/min) 2 Oxygen Delivery Method Nasal Cannula Weight: 80.5 kg Body Mass Index (BMI) 24.0 Intake & Output: Intake and Output for Last 24 Hours 01/05/24 01/06/24 01/07/24 23:59 23:59 23:59 Intake Total 1000 / 1000 200 / 200 Balance 1000 / 1000 200 / 200 Lab / Micro Data 01/07/24 05:55 01/07/24 05:55 Labs: Laboratory Results - last 24 hr 01/06/24 21:07: WBC 11.2 H, RBC 4.04 L, Hgb 12.4 L, Hct 38.8 L, MCV 96.0 H, MCH 30.7, MCHC 32.0, RDW Std Deviation 53.5 H, RDW Coeff of Yan 15.0 H, Plt Count 186, MPV 9.7, Immature Gran % (Auto) 0.400, Neut % (Auto) 84.1 H, Lymph % (Auto) 5.6 L, [place] % (Auto) 9.4, Eos % (Auto) 0.3, Baso % (Auto) 0.2, Absolute Neuts (auto) 9.5 H, Absolute Lymphs (auto) 0.63 L, Nucleated RBC % 0, PT 15.1 H, INR 1.2, APTT 35.4, Sodium 142, Potassium 4.0, Chloride 108 H, Carbon Dioxide 27.0, Anion Gap 7, BUN 17, Creatinine 1.25, Estim Creat Clear Calc 50.01, Est GFR (MDRD) Af Amer 71, Est GFR (MDRD) Non-Af 59 L, BUN/Creatinine Ratio 13.6, G lucose 187 H, Lactic Acid 1.9, Calcium 9.5, Total Bilirubin 0.40, AST 33, ALT 22, Alkaline Phosphatase 110, Total Protein 8.0, Albumin 3.5, Globulin 4.5 H, A lbumin/Globulin Ratio 0.8 L 01/06/24 21:20: Urine Color Yellow, Urine Clarity Clear, Urine pH 6.0, Ur Specific [place] 1.015, Urine Protein 30 H, Urine Glucose (UA) Normal, Urine Ketones Negative, Urine Occult Blood 250 H, Urine Nitrite Negative, Urine Bilirubin Negative, Urine Urobilinogen 1 H, Ur Leukocyte Esterase Negative, Urine RBC 25-50 SEEN, Urine WBC 0-5 SEEN, Ur Squamous Epith Cells 0 SEEN, Urine Bacteria 0 SEEN, Urine Mucus 0 SEEN 01/06/24 23:21: Procalcitonin 0.75 H 01/07/24 05:55: WBC 12.0 H, RBC 3.28 L, Hgb 10.1 L, Hct 31.7 L, MCV 96.6 H, MCH 30.8, MCHC 31.9 L, RDW Std Deviation 54.0 H, RDW Coeff of Yan 15.1 H, Plt Count 150, MPV 9.3, Immature Gran % (Auto) 0.300, Neut % (Auto) 77.8 H, Lymph % (Auto) 11.1 L, [place] % (Auto) 10.4 H, Eos % (Auto) 0.1, Baso % (Auto) 0.3, Absolute Neuts (auto) 9.3 H, Absolute Lymphs (auto) 1.33, Nucleated RBC % 0, Sodium 142, Potassium 3.5, Chloride 111 H, Carbon Dioxide 24.0, Anion Gap 7, BUN 17, Creatinine 1.03, Estim Creat Clear Calc 60.69, Est GFR (MDRD) Af Amer 89, Est GFR (MDRD) Non-Af 73, BUN/Creatinine Ratio 16.5, Glucose 146 H, Calcium 8.4 L, Total Bilirubin 0.40, AST 26, ALT 17, Alkaline Phosphatase 81, Total Protein 6.3 L, Albumin 2.6 L, Globulin 3.7, Albumin/Globulin Ratio 0.7 L Micro: Microbiology 01/06/24 23:32 Mucosa - Nose Respiratory Panel (PCR) - Final Parainfluenza 3 01/06/24 21:20 Urine Catheter - Catheter Legionella Antigen - Final 01/06/24 21:20 Urine Catheter - Catheter Streptococcus pneumoniae Antigen (M - Final 01/06/24 21:20 Mucosa - Nasopharyngeal SARS-CoV-2, Influenza & RSV (PCR) - Final Radiography Diagnostic Testing: Radiology Impression Chest X-Ray 01/06/24 21:44 IMPRESSION: Left basilar subsegmental atelectasis versus scarring. No infiltrates. Electronically Signed: Vero Aleman MD at 22:17 EDT , Physical Exam Const alert and no apparent distress HEENT head/scalp atraumatic and moist oral mucous membranes Resp normal respiratory effort, no retractions, no use of accessory muscles and clear to auscultation bilaterally Cardio regular rate, regular rhythm, S1 normal heart sound and S2 normal heart sound Assessment & Plan Assessment/Plan (1) Acute viral syndrome: (2) Hypoxia: PLAN: Plan Acute viral syndrome. * 2/2 parainfluenza virus. * supportive mgmt. Chronic conditions: * PAD/Carotid disease: continue aspirin * CAD: Status post CABG 2013 (left internal mammary artery to the left anterior descending artery, saphenous vein graft to the diagonal branch, saphenous vein graft to posterior descending artery), continue aspirin, lisinopril, not on beta-jennifer therapy, not on statin therapy secondary to intolerance, encourage continued outpatient follow-up with cardiology as previously arranged. Most recent cardiac catheterization 09/26/2023 with patent saphenous vein graft noted to the diagonal vessel as well as the right coronary artery and CORCORAN to LAD presumed patent with recommended continued medical therapy at that time. * Chronic Kidney Disease Stage III: stable * Chronic anemia, currently appears macrocytic: stable * Hypertension: Continue home regimen including lisinopril, amlodipine, PRN hydralazine. * Hyperlipidemia: We will continue patient home gemfibrozil regimen. * Diabetes mellitus type II with polyneuropathy: Hold oral home regimen, ADA diet, accu checks w/ ISS, continue gabapentin as well as duloxetine home regimen. * Anxiety and depression: We will continue patient home duloxetine regimen. * Hypothyroidism: We will continue patient on levothyroxine regimen. * GERD: We will continue patient on PPI. * Gout: We will continue patient on allopurinol regimen. DVT prophylaxis: Lovenox. Code: Full Discharge today. Amatory pulse ox was unremarkable. Patient improved much faster than initially anticipated.
--- NOTE | 2024-01-07 09:16 | NURSING ---
spo2 87% on room air, then up to 90%. pt does I.S. and spo2 up to 94% while on room air. when pt done with I.S. spo2 89-90% on room air while talking with family. will place back on 2L NC.
--- NOTE | 2024-01-07 09:18 | NURSING ---
pt at rest in bed, HOB high fowlers.spo2 up to 92% on 2L within minute of it being applied.
[2024-01-07] MEDS: Enoxaparin 40 MG/0.4 ML Syringe SC (09:28)
[2024-01-07] MEDS: amLODIPine 10 MG Tablet PO (09:28)
[2024-01-07] MEDS: 0.9% Saline Lock 10 ML Syringe IV (09:28)
[2024-01-07] MEDS: Aspirin E.C. 81 MG Tablet PO (09:28)
[2024-01-07] MEDS: Allopurinol 300 MG Tablet PO (09:28)
[2024-01-07] MEDS: Lisinopril 40 MG Tablet PO (09:28)
[2024-01-07] MEDS: Gemfibrozil 600 MG Tablet PO (09:29)
[2024-01-07] MEDS: Pantoprazole Sodium 40 MG Tablet PO (09:29)
--- NOTE | 2024-01-07 10:32 | NURSING ---
spo2 range when ambulating on room air was 92-94%. currently spo2 94% while sitting up in chair on room air. remains on continous pulse ox. I.S. and pep therapy at bedside
[2024-01-07 12:02] LABS: Bedside Glucose 113 mg/dL (74-106)
--- NOTE | 2024-01-07 12:32 | DS.PCM_ITS ---
Providers Date of Admission: 01/06/24 Primary Care Physician: Dr. Sajan Rowley MD Reason For Visit: ACUTE VIRAL SYNDROME, HYPOXIA Diagnosis Discharge Diagnosis (1) Acute viral syndrome: Status: Acute Code(s): B34.9 - Viral infection, unspecified (2) Hypoxia: Status: Acute Code(s): R09.02 - Hypoxemia Plan Acute viral syndrome. * 2/2 parainfluenza virus. * supportive mgmt. Chronic conditions: * PAD/Carotid disease: continue aspirin * CAD: Status post CABG 2013 (left internal mammary artery to the left anterior descending artery, saphenous vein graft to the diagonal branch, saphenous vein graft to posterior descending artery), continue aspirin, lisinopril, not on beta-jennifer therapy, not on statin therapy secondary to intolerance, encourage continued outpatient follow-up with cardiology as previously arranged. Most recent cardiac catheterization 09/26/2023 with patent saphenous vein graft noted to the diagonal vessel as well as the right coronary artery and CORCORAN to LAD presumed patent with recommended continued medical therapy at that time. * Chronic Kidney Disease Stage III: stable * Chronic anemia, currently appears macrocytic: stable * Hypertension: Continue home regimen including lisinopril, amlodipine, PRN hydralazine. * Hyperlipidemia: We will continue patient home gemfibrozil regimen. * Diabetes mellitus type II with polyneuropathy: Hold oral home regimen, ADA diet, accu checks w/ ISS, continue gabapentin as well as duloxetine home regimen. * Anxiety and depression: We will continue patient home duloxetine regimen. * Hypothyroidism: We will continue patient on levothyroxine regimen. * GERD: We will continue patient on PPI. * Gout: We will continue patient on allopurinol regimen. DVT prophylaxis: Lovenox. Code: Full Discharge today. Amatory pulse ox was unremarkable. Patient improved much faster than initially anticipated. Medications at Discharge Home Medications gemfibrozil 600 mg tablet 600 mg PO BID cholesterol 01/01/14 allopurinol 300 mg tablet 300 mg PO DAILY GOUT 10/21/15 pantoprazole 40 mg tablet,delayed release 40 mg PO DAILY reflux 10/21/15 amlodipine 10 mg tablet 10 mg PO DAILY BP 05/21/19 aspirin 81 mg tablet,delayed release (Adult Aspirin Regimen) 81 mg PO DAILY 06/03/19 cyanocobalamin (vitamin B-12) 1,000 mcg capsule 3,000 mcg PO DAILY 06/16/20 levothyroxine 50 mcg tablet 50 mcg PO DAILY THYROID 01/08/21 gabapentin 800 mg tablet 800 mg PO TID 06/25/21 lisinopril 40 mg tablet See Rx Instructions .Route .COMPLEX #90 tabs 07/05/21 cholecalciferol (vitamin D3) 25 mcg (1,000 unit) capsule 100 mcg PO DAILY 07/28/22 glimepiride 4 mg tablet 4 mg PO DAILY 07/28/22 metformin 500 mg tablet,extended release 24 hr 500 mg PO DAILY 07/28/22 vitamins A,C,J-vxmy-sydvia 4,296 mcg-226 mg-90 mg capsule (PreserVision AREDS) 1 cap PO BID 02/23/23 duloxetine 60 mg capsule,delayed release 60 mg PO QHS #90 caps 10/31/23 omega 3-dct-orj-fish oil 1,200 mg (144 mg-216 mg) capsule (Fish Oil) 2 cap PO DAILY 01/06/24
--- NOTE | 2024-01-07 12:32 | PCM.DC.SUM ---
Providers Date of Admission: 01/06/24 Primary Care Physician: Dr. Sajan Rowley MD Reason For Visit: ACUTE VIRAL SYNDROME, HYPOXIA Diagnosis Discharge Diagnosis (1) Acute viral syndrome: Status: Acute Code(s): B34.9 - Viral infection, unspecified (2) Hypoxia: Status: Acute Code(s): R09.02 - Hypoxemia Plan Acute viral syndrome. 2/2 parainfluenza virus. supportive mgmt. Chronic conditions: PAD/Carotid disease: continue aspirin CAD: Status post CABG 2013 (left internal mammary artery to the left anterior descending artery, saphenous vein graft to the diagonal branch, saphenous vein graft to posterior descending artery), continue aspirin, lisinopril, not on beta-jennifer therapy, not on statin therapy secondary to intolerance, encourage continued outpatient follow-up with cardiology as previously arranged. Most recent cardiac catheterization 09/26/2023 with patent saphenous vein graft noted to the diagonal vessel as well as the right coronary artery and CORCORAN to LAD presumed patent with recommended continued medical therapy at that time. Chronic Kidney Disease Stage III: stable Chronic anemia, currently appears macrocytic: stable Hypertension: Continue home regimen including lisinopril, amlodipine, PRN hydralazine. Hyperlipidemia: We will continue patient home gemfibrozil regimen. Diabetes mellitus type II with polyneuropathy: Hold oral home regimen, ADA diet, accu checks w/ ISS, continue gabapentin as well as duloxetine home regimen. Anxiety and depression: We will continue patient home duloxetine regimen. Hypothyroidism: We will continue patient on levothyroxine regimen. GERD: We will continue patient on PPI. Gout: We will continue patient on allopurinol regimen. DVT prophylaxis: Lovenox. Code: Full Discharge today. Amatory pulse ox was unremarkable. Patient improved much faster than initially anticipated. Medications at Discharge Home Medications gemfibrozil 600 mg tablet 600 mg PO BID cholesterol 01/01/14 allopurinol 300 mg tablet 300 mg PO DAILY GOUT 10/21/15 pantoprazole 40 mg tablet,delayed release 40 mg PO DAILY reflux 10/21/15 amlodipine 10 mg tablet 10 mg PO DAILY BP 05/21/19 aspirin 81 mg tablet,delayed release (Adult Aspirin Regimen) 81 mg PO DAILY 06/03/19 cyanocobalamin (vitamin B-12) 1,000 mcg capsule 3,000 mcg PO DAILY 06/16/20 levothyroxine 50 mcg tablet 50 mcg PO DAILY THYROID 01/08/21 gabapentin 800 mg tablet 800 mg PO TID 06/25/21 lisinopril 40 mg tablet See Rx Instructions .Route .COMPLEX #90 tabs 07/05/21 cholecalciferol (vitamin D3) 25 mcg (1,000 unit) capsule 100 mcg PO DAILY 07/28/22 glimepiride 4 mg tablet 4 mg PO DAILY 07/28/22 metformin 500 mg tablet,extended release 24 hr 500 mg PO DAILY 07/28/22 vitamins A,C,L-hcli-lcgzlj 4,296 mcg-226 mg-90 mg capsule (PreserVision AREDS) 1 cap PO BID 02/23/23 duloxetine 60 mg capsule,delayed release 60 mg PO QHS #90 caps 10/31/23 omega 7-lde-qju-fish oil 1,200 mg (144 mg-216 mg) capsule (Fish Oil) 2 cap PO DAILY 01/06/24 Hospital Course Operations None Procedures None Summary of Care Provided Hospital Course: Patient presents with fatigue and malaise. Patient was found to be hypoxic around 87 to 88% on room air. Patient brought to the hospital. He was positive for parainfluenza virus. Supportive management. Today, patient is feeling much better. Amatory pulse ox was unremarkable. Patient be discharged with no active treatments. Patient advised to slowly ease back into his routine. Weight / BMI Weight Weight: 80.5 kg Body Mass Index (BMI) 24.0 ABG / Lab / Microbiology Data 01/07/24 05:55 01/07/24 05:55 Laboratory: Laboratory Results - last 24 hr 01/06/24 21:07: WBC 11.2 H, RBC 4.04 L, Hgb 12.4 L, Hct 38.8 L, MCV 96.0 H, MCH 30.7, MCHC 32.0, RDW Std Deviation 53.5 H, RDW Coeff of Yan 15.0 H, Plt Count 186, MPV 9.7, Immature Gran % (Auto) 0.400, Neut % (Auto) 84.1 H, Lymph % (Auto) 5.6 L, [place] % (Auto) 9.4, Eos % (Auto) 0.3, Baso % (Auto) 0.2, Absolute Neuts (auto) 9.5 H, Absolute Lymphs (auto) 0.63 L, Nucleated RBC % 0, PT 15.1 H, INR 1.2, APTT 35.4, Sodium 142, Potassium 4.0, Chloride 108 H, Carbon Dioxide 27.0, Anion Gap 7, BUN 17, Creatinine 1.25, Estim Creat Clear Calc 50.01, Est GFR (MDRD) Af Amer 71, Est GFR (MDRD) Non-Af 59 L, BUN/Creatinine Ratio 13.6, Glucose 187 H, Lactic Acid 1.9, Calcium 9.5, Total Bilirubin 0.40, AST 33, ALT 22, Alkaline Phosphatase 110, Total Protein 8.0, Albumin 3.5, Globulin 4.5 H, Albumin/Globulin Ratio 0.8 L 01/06/24 21:20: Urine Color Yellow, Urine Clarity Clear, Urine pH 6.0, Ur Specific [place] 1.015, Urine Protein 30 H, Urine Glucose (UA) Normal, Urine Ketones Negative, Urine Occult Blood 250 H, Urine Nitrite Negative, Urine Bilirubin Negative, Urine Urobilinogen 1 H, Ur Leukocyte Esterase Negative, Urine RBC 25-50 SEEN, Urine WBC 0-5 SEEN, Ur Squamous Epith Cells 0 SEEN, Urine Bacteria 0 SEEN, Urine Mucus 0 SEEN 01/06/24 23:21: Procalcitonin 0.75 H 01/07/24 05:55: WBC 12.0 H, RBC 3.28 L, Hgb 10.1 L, Hct 31.7 L, MCV 96.6 H, MCH 30.8, MCHC 31.9 L, RDW Std Deviation 54.0 H, RDW Coeff of Yan 15.1 H, Plt Count 150, MPV 9.3, Immature Gran % (Auto) 0.300, Neut % (Auto) 77.8 H, Lymph % (Auto) 11.1 L, [place] % (Auto) 10.4 H, Eos % (Auto) 0.1, Baso % (Auto) 0.3, Absolute Neuts (auto) 9.3 H, Absolute Lymphs (auto) 1.33, Nucleated RBC % 0, Sodium 142, Potassium 3.5, Chloride 111 H, Carbon Dioxide 24.0, Anion Gap 7, BUN 17, Creatinine 1.03, Estim Creat Clear Calc 60.69, Est GFR (MDRD) Af Amer 89, Est GFR (MDRD) Non-Af 73, BUN/Creatinine Ratio 16.5, Glucose 146 H, Calcium 8.4 L, Total Bilirubin 0.40, AST 26, ALT 17, Alkaline Phosphatase 81, Total Protein 6.3 L, Albumin 2.6 L, Globulin 3.7, Albumin/Globulin Ratio 0.7 L 01/07/24 11:35: POC Glucose 113 H Microbiology: Microbiology 01/06/24 23:32 Mucosa - Nose Respiratory Panel (PCR) - Final Parainfluenza 3 01/06/24 21:20 Urine Catheter - Catheter Legionella Antigen - Final 01/06/24 21:20 Urine Catheter - Catheter Streptococcus pneumoniae Antigen (M - Final 01/06/24 21:20 Mucosa - Nasopharyngeal SARS-CoV-2, Influenza & RSV (PCR) - Final Radiography Diagnostic Testing: Radiology Impression Chest X-Ray 01/06/24 21:44 IMPRESSION: Left basilar subsegmental atelectasis versus scarring. No infiltrates. Electronically Signed: Vero Aleman MD at 22:17 EDT , D/C Instructions Discharge Diet: 2000 Calorie Control Diet Meaningful Use Info Meaningful Use Meaningful Use Diagnoses (Choose all that apply): None applicable Ischemic Stroke Statin Dosing Therapy Reference: STATIN DOSE THERAPY REFERENCE: * Patients > 75 years receive moderate or high dose statin therapy. * Patients 75 years or YOUNGER should receive HIGH intensity statin dose unless contraindicated. You will be required to document reason for non-treatment if statin daily dose does not meet guidelines. HIGH DOSE STATIN THERAPY DAILY Atorvastatin > than or = to 40 mg Rosuvastatin > than or = to 20 mg Amlodipine + Atorvastatin > than or = to 2.5/40 mg Ezetimibe + Simvastatin 10/80 mg Simvastatin 80mg Discharge Plan Admission Admit Date/Time: 01/06/24 23:09 Primary Reason for Your Visit: Acute viral illness. Attending Provider: Amauri Leonard Primary Care Provider: Sajan Rowley Consulting Providers: Monse Carpenter Instructions Additional Instructions / Restrictions: You had a viral illness secondary to parainfluenza virus. There is no treatment for this particular virus other than supportive and with time that will get better. Your symptoms have gotten better since you have been here but I would advise slowly easing back into your routine over the next few days. Discharge Orders/Prescriptions Prescriptions: Continued amlodipine 10 mg tablet 10 mg PO DAILY cyanocobalamin (vitamin B-12) 1,000 mcg capsule 3,000 mcg PO DAILY cholecalciferol (vitamin D3) 25 mcg (1,000 unit) capsule 100 mcg PO DAILY gabapentin 800 mg tablet 800 mg PO TID glimepiride 4 mg tablet 4 mg PO DAILY metformin 500 mg tablet extended release 24 hr 500 mg PO DAILY PreserVision AREDS 4,296 mcg-226 mg-90 mg capsule 1 cap PO BID duloxetine 60 mg capsule,delayed release(DR/EC) 60 mg PO QHS Qty: 90 3RF gemfibrozil 600 MG tablet 600 mg PO BID Patient Comments: HAD 10/26/15 pantoprazole 40 MG tablet 40 mg PO DAILY Patient Comments: gerd HAD TODAY 10/26/15 allopurinol 300 MG tablet 300 mg PO DAILY levothyroxine 50 mcg tablet 50 mcg PO DAILY Patient Comments: TAKE 1 TABLET BY MOUTH ONCE DAILY omega 0-osk-rww-fish oil [Fish Oil] 1,200 (144-216) mg capsule 2 cap PO DAILY aspirin [Adult Aspirin Regimen] 81 mg tablet,delayed release (DR/EC) 81 mg PO DAILY lisinopril 40 mg tablet See Rx Instructions .ROUTE .COMPLEX Qty: 90 4RF Dose Instruction: Take 1 tablet by mouth once daily Rx Instructions: Take 1 tablet by mouth once daily Referrals / Follow Up: Sajan Rowley MD [Primary Care Provider] - See Referral Note (per routine) Disposition Disposition (needs filled in before D/C Order can be placed): Home, Self Care Charges/Coding Visit Charges Inpatient E&M: 40115 Disch Hosp
[2024-01-08 01:51] LABS: Bedside Glucose 133 mg/dL (74-106)
== END 2024-01-07 17:53 | disposition home or self-care (01) | DRG 866 ==
LOC: ED 23:12 → MS3 01-07 02:12
PROVIDERS: Nurse Practitioner; Admitting Provider Family Medicine; Emergency Provider Emergency Medicine; PCP Family Medicine
DX: B34.8 Other viral infections of unspecified site (principal); E11.22 Type 2 diabetes mellitus with diabetic chronic kidney disease; E11.42 Type 2 diabetes mellitus with diabetic polyneuropathy; E03.9 Hypothyroidism, unspecified; D64.9 Anemia, unspecified; N18.30 Chronic kidney disease, stage 3 unspecified; E11.51 Type 2 diabetes mellitus with diabetic peripheral angiopathy without gangrene; I12.9 Hypertensive chronic kidney disease with stage 1 through stage 4 chronic kidney disease, or unspecified chronic kidney disease; F32.A Depression, unspecified; I25.10 Atherosclerotic heart disease of native coronary artery without angina pectoris; E78.5 Hyperlipidemia, unspecified; K21.9 Gastro-esophageal reflux disease without esophagitis; F41.9 Anxiety disorder, unspecified; M10.9 Gout, unspecified; Z79.899 Other long term (current) drug therapy; Z79.82 Long term (current) use of aspirin; Z79.84 Long term (current) use of oral hypoglycemic drugs; Z95.1 Presence of aortocoronary bypass graft; Z87.891 Personal history of nicotine dependence
CPT/HCPCS: 36415; 71046; 80053; 81001; 82962; 83605; 84145; 85025; 85610; 85730; 87040; 87070; 87086; 87205; 87449; 87631; 87633; 93005; 94640; 97162; 97166; 97802; 99285; J7030; A4216

== ENCOUNTER → 2024-02-12 | Outpatient (CLI) | payer MEDICARE, OTHER, SELFPAY ==
[2024-02-12 15:40] LABS: Absolute Lymphocyte Count 1.36 X10^3/uL (0.83-4.51); Absolute Neutrophil Count 4.5 X10^3/uL (2.0-7.7); Basophil# 0.05 X10^3/uL; Basophil% 0.7 % (0-1); Eosinophil# 0.18 X10^3/uL; Eosinophils% 2.6 % (0-5); Hematocrit 35.3 % (40-54); Hemoglobin 10.9 g/dL (13.0-16.5); Lymphocyte # 1.36 X10^3/ul (0.83-4.51); Lymphocyte % 19.4 % (19-41); Mean Corp Hgb Conc 30.9 g/dL (32-36); Mean Corpuscular Hgb 29.9 pg (27.0-32.0); Mean Corpuscular Volume 96.7 fL (80-94); Mean Platelet Vol. 10.1 fl (6.2-12.0); Monocyte# 0.85 X10^3/uL; Monocyte% 12.1 % (0-10); NRBC Flagged by Analyzer 0 % (0-5); Neutrophil # 4.52 X10^3/uL (2.7-7.7); Neutrophil % 64.6 % (47-70); Platelet Count 231 K/mm3 (150-450); RBC Distribution Width SD 57.1 fl (35.1-43.9); Red Blood Count 3.65 M/mm3 (4.6-6.2)
[2024-02-12 15:56] LABS: Vitamin B12 1835 pg/mL (211-911); Vitamin D,25 Hydroxy 74.1 ng/mL
[2024-02-12 15:57] LABS: Anion Gap 9 (5-15); BUN 39 mg/dL (7-18); BUN/Creat Ratio 19.7 RATIO (10-20); Calcium,Total 9.6 mg/dL (8.5-10.1); Chloride 108 mmol/L (98-107); Creatinine, Serum 1.98 mg/dL (0.70-1.30); EST Glomerular Filtration Rate 35 mL/min (>60); Est Glom Filt Rate - Afr Amer 42 mL/min (>60); Glucose 181 mg/dL (74-106); Sodium Level 140 mmol/L (136-145); Thyroid Stim Hormone (TSH) 0.97 uIU/mL (0.358-3.74)
[2024-02-13 11:08] LABS: RET-HE 30.8 pg (30-35); Reticulocyte Count 2.22 % (0.5-1.5)
[2024-02-13 11:22] LABS: Ferritin 227 ng/mL (26-388); Iron 56 ug/dL (65-175); Iron Binding Capacity,Total 381 ug/dL (250-450); PERCENT IRON SATURATION 14.7 % (15.0-55.0)
== END | disposition home or self-care (01) ==
LOC: MFPLAB 12:14
PROVIDERS: PCP Family Medicine; Visit Provider Family Medicine
DX: D64.9 Anemia, unspecified (principal); E11.40 Type 2 diabetes mellitus with diabetic neuropathy, unspecified; R30.0 Dysuria; E03.9 Hypothyroidism, unspecified; R53.83 Other fatigue
CPT/HCPCS: 36415; 80048; 82306; 82607; 82728; 83540; 83550; 84443; 85025; 85045

== ENCOUNTER → 2024-02-20 | Outpatient (CLI) | payer MEDICARE, OTHER, SELFPAY ==
[2024-02-20 15:26] LABS: Anion Gap 8 (5-15); BUN 34 mg/dL (7-18); BUN/Creat Ratio 21.9 RATIO (10-20); Calcium,Total 9.8 mg/dL (8.5-10.1); Chloride 106 mmol/L (98-107); Creatinine, Serum 1.55 mg/dL (0.70-1.30); EST Glomerular Filtration Rate 46 mL/min (>60); Est Glom Filt Rate - Afr Amer 55 mL/min (>60); Glucose 243 mg/dL (74-106); Potassium 3.9 mmol/L (3.5-5.1); Sodium Level 139 mmol/L (136-145)
== END | disposition home or self-care (01) ==
LOC: MTLAB 13:04
PROVIDERS: PCP Family Medicine; Referring Provider Family Medicine; Visit Provider Family Medicine
DX: N18.30 Chronic kidney disease, stage 3 unspecified (principal)
CPT/HCPCS: 36415; 80048

== ENCOUNTER → 2024-08-22 | Outpatient (CLI) | payer MEDICARE, OTHER, SELFPAY ==
[2024-08-22 12:27] LABS: Anion Gap 7 (5-15); BUN 27 mg/dL (7-18); BUN/Creat Ratio 17.6 RATIO (10-20); Calcium,Total 10.1 mg/dL (8.5-10.1); Chloride 108 mmol/L (98-107); Creatinine, Serum 1.53 mg/dL (0.70-1.30); EST Glomerular Filtration Rate 46 mL/min (>60); Est Glom Filt Rate - Afr Amer 56 mL/min (>60); Glucose 129 mg/dL (74-106); Potassium 3.5 mmol/L (3.5-5.1); Sodium Level 139 mmol/L (136-145)
== END | disposition home or self-care (01) ==
LOC: MFPLAB 10:35
PROVIDERS: PCP Family Medicine; Referring Provider Family Medicine; Visit Provider Family Medicine
DX: E11.40 Type 2 diabetes mellitus with diabetic neuropathy, unspecified (principal)
CPT/HCPCS: 36415; 80048

== ENCOUNTER → 2024-10-28 | Outpatient (CLI) | payer MEDICARE, OTHER, SELFPAY ==
--- NOTE | 2024-10-28 07:55 | CDU_ITS ---
Reason For Study Reason For Study: Carotid bruit Rt. Velocities/BP Lt. Velocities/BP Prox CCA 64.5/10.7 cm/sec. Prox CCA 69.6/13.5 cm/sec. Mid CCA 189.4/27 cm/sec. Mid CCA 76.2/19 cm/sec. Dist CCA 175.5/17.1 cm/sec. Dist CCA 75.1/14.6 cm/sec. Prox ICA 174.1/29.2 cm/sec. Prox ICA 77.7/18.8 cm/sec. Mid ICA 141.2/18.2 cm/sec. Mid ICA 87.6/16.3 cm/sec. Dist ICA 74/17.6 cm/sec. Dist ICA 66.7/10.2 cm/sec. Rt. ICA/CCA = 1.09. Lt. ICA/CCA = 1.15. Prox ECA 176.3/9.4 cm/sec. Prox ECA 587.7/113.6 cm/sec. Rt. Vert. 57.5/10.2 cm/sec. Lt. Vert. 45.4/11.3 cm/sec. Right Extracranial There is heterogeneous, irregular atherosclerotic plaque noted in the right common carotid artery. There is heterogeneous, irregular atherosclerotic plaque noted in the right internal carotid artery. There is heterogeneous, irregular atherosclerotic plaque noted in the right external carotid artery. Antegrade flow is noted in the right vertebral artery. Left Extracranial There is heterogeneous, irregular atherosclerotic plaque noted in the left common carotid artery. There is heterogeneous, irregular atherosclerotic plaque noted in the left internal carotid artery. There is heterogeneous, irregular atherosclerotic plaque noted in the left external carotid artery. Antegrade flow is noted in the left vertebral artery. Procedure Carotid Duplex 66255. This is a Carotid Duplex examination using B-mode, color flow and specral Doppler. Exam performed in department. VL/Carotid Duplex Ultrasound Interpretation Summary Moderate (50-69%) stenosis right extracranial internal carotid. Mild (<50%) shelley nosis left extracranial internal carotid. Flow within the vertebral arteries is antegrade bilaterally. Elevated velocitie s in the left external carotid artery suggest severe stenosis. Ordering Physician: Mane Solares Referring Physician: Sajan Rowley MD Performed By: Windy Landry RVT
== END | disposition home or self-care (01) ==
LOC: CVS 07:54
PROVIDERS: PCP Family Medicine; Referring Provider Psychiatry & Neurology Neurology; Visit Provider Psychiatry & Neurology Neurology
DX: R09.89 Other specified symptoms and signs involving the circulatory and respiratory systems (principal)
CPT/HCPCS: 93880

== ENCOUNTER → 2024-11-01 | Outpatient (CLI) | payer MEDICARE, OTHER, SELFPAY ==
[2024-11-01 09:34] LABS: AST(SGOT) 33 U/L (<=37); Alanine Aminotransfer ALT/SGPT 17 U/L (<=46); Alkaline Phosphatase 149 U/L (40-129); Bilirubin, Direct 0.18 mg/dL (0.00-0.30); Cholesterol 147 mg/dL (<=200); Globulin 3.5 g/dL (2.2-4.2); High Density Lipoprotein 37 mg/dL; Low Density Lipoprotein Calc. 83 mg/dL; Protein, Total 7.5 g/dL (5.9-8.4); Total Bilirubin 0.37 mg/dL (0.00-1.30); Triglycerides 136 mg/dL; Very Low Density Lipoprotein 27 mg/dL (5-40); cholesterol:hdl ratio screen 3.94
== END | disposition home or self-care (01) ==
LOC: LAB 08:26
PROVIDERS: PCP Family Medicine; Referring Provider Nurse Practitioner Gerontology; Visit Provider Nurse Practitioner Gerontology
DX: E78.5 Hyperlipidemia, unspecified (principal)
CPT/HCPCS: 36415; 80061; 80076

== ENCOUNTER → 2024-12-20 | Outpatient (CLI) | payer MEDICARE, OTHER, SELFPAY ==
[2024-12-20 15:44] LABS: Mucous, Urine 0 SEEN /hpf (<or=2+); Red Blood Cells-Urine 0 SEEN /hpf (0-5)
[2024-12-20 18:07] LABS: ALB/GLOB Ratio 1.2 RATIO (0.9-2.4); AST(SGOT) 24 U/L (<=37); Alanine Aminotransfer ALT/SGPT 17 U/L (<=46); Albumin, Serum 4.1 g/dL (3.4-4.8); Alkaline Phosphatase 135 U/L (40-129); Anion Gap 13 (5-15); BUN 32 mg/dL (4-19); BUN/Creat Ratio 27.6 RATIO (10-20); Calcium,Total 10.2 mg/dL (7.6-11.0); Carbon Dioxide 20.5 mmol/L (21.0-32.0); Chloride 111 mmol/L (98-108); Creatinine, Serum 1.17 mg/dL (0.70-1.20); EST Glomerular Filtration Rate 62 (>60); Globulin 3.5 g/dL (2.2-4.2); Glucose 63 mg/dL (70-99); Potassium 3.9 mmol/L (3.3-5.1); Protein, Total 7.5 g/dL (5.9-8.4); Sodium Level 145 mmol/L (133-145); Total Bilirubin 0.35 mg/dL (0.00-1.30); Vitamin B12 619 pg/mL (180-914); Vitamin D,25 Hydroxy 50.6 ng/mL (30-100)
[2024-12-20 18:39] LABS: CRP < 3.00 mg/L (0.0-3.0)
[2024-12-20 18:48] LABS: Iron 75 ug/dL (65-175)
[2024-12-20 18:54] LABS: Absolute Lymphocyte Count 1.74 X10^3/uL (0.83-4.51); Absolute Neutrophil Count 3.2 X10^3/uL (2.0-7.7); Basophil# 0.02 X10^3/uL; Basophil% 0.3 % (0-1); Eosinophil# 1.15 X10^3/uL; Eosinophils% 17.2 % (0-5); Hematocrit 37.5 % (40-54); Hemoglobin 12.2 g/dL (13.0-16.5); Lymphocyte # 1.74 X10^3/ul (0.83-4.51); Mean Corp Hgb Conc 32.5 g/dL (32-36); Mean Corpuscular Hgb 30.7 pg (27.0-32.0); Mean Corpuscular Volume 94.5 fL (80-94); Mean Platelet Vol. 10.4 fl (6.2-12.0); Monocyte# 0.59 X10^3/uL; Monocyte% 8.8 % (0-10); NRBC Flagged by Analyzer 0 % (0-5); Neutrophil # 3.19 X10^3/uL (2.7-7.7); Neutrophil % 47.6 % (47-70); Platelet Count 213 K/mm3 (150-450); RBC Distribution Width CV 14.3 % (11.6-14.6); RBC Distribution Width SD 48.7 fl (35.1-43.9); Red Blood Count 3.97 M/mm3 (4.6-6.2); White Blood Count 6.7 K/mm3 (4.4-11.0)
[2024-12-20 18:59] LABS: Erythrocyte Sedimentation Rate 37 mm/hr (0-20)
[2024-12-20 19:35] LABS: Color, Urine Straw (Yellow); Glucose, Dipstick Normal (Normal); Ketone-Dipstick Negative (Negative); Leukocyte Esterase-Dipstick Negative /ul (Negative); Nitrite-Dipstick Negative (Negative); Occult Blood-Urine Negative /ul (Negative); Protein-Dipstick 30 mg/dl (Negative); Specific Gravity, Urine 1.015 (1.002-1.030); Urine Bilirubin Dipstick Negative (Negative); Urine Clarity Clear (Clear); Urine Urobilinogen Normal (Normal)
[2024-12-20 21:22] LABS: Amorphous Sediment 1+; Bacteria 2+ /hpf (None Seen); Squamous Epithelial Cells - UA 5-10 SEEN /hpf (0-5); White Blood Cells 0-5 SEEN /hpf (0-5)
== END | disposition home or self-care (01) ==
LOC: MFPLAB 15:42
PROVIDERS: PCP Family Medicine; Referring Provider Family Medicine; Visit Provider Family Medicine
DX: R53.83 Other fatigue (principal)
CPT/HCPCS: 36415; 80053; 81001; 82306; 82607; 83540; 84443; 85025; 85652; 86140

== ENCOUNTER 2025-04-02 13:00 | Outpatient (RCR) | payer MEDICARE, OTHER, SELFPAY ==
--- NOTE | 2025-02-04 14:26 | HP.PTEVAL_ITS ---
Patient's Visit Information Visit Information Visit Information: GIA VIRAMONTES is a 84 year old M referred to Physical Therapy by Dr. Sajan Rowley MD with a diagnosis of Instability and LE Strengthening. Date of Evaluation: 02/04/25 Physical Therapist: Steph Monroy DPT Visit Plan Frequency: 2x /Week Duration: 4 Weeks Plan: Functional Mobility- gait, stairs and up from the floor- balance HEP Given IE: seated hamstring stretch, HR, marching, hip abd, hip extn Subjective Subjective: Patient reports that when he gets down on the ground he can't get back up. He has neuropathy in his feet and it changes his balance. He also has a lower energy level. He fell the other day over boxes- so he has a little bit of back pain currently but not normally painful. He reports that he falls 2-3x a while ago but not recently. He reports that he is normally doing things around the house- he loves to be outside doing arcos and such. He does most of the cooking and cleaning but its mostly just "survival". They do have someone that brings in some meals. They have stairs at home- he goes up/down with a railing on both sides- he does them daily. No problem the first time but the more he does them the more challenging they become. The neuropathy came to the ankles but he want to pain mgmt and they put him on lyrica and it seems to b e helping. PMHx/Meds: see chart. Objective Objective: Posture: forward head, rounded shoulders- can correct but does not maintain- does not fully extend left knee to obtain upright posture Gait: bent knees- mild crouched gait pattern, decreased stance on left LE. No AD Stairs: bilateral UE A- recip pattern both asc/desc- poor control with descent HR/TR: able with UE A SLS: weight shift only ROM: Left Knee: lacks 15 degrees of extension Strength: Core: fair minus, Right: Hip: 4/5, Knee: 4+/5, Ankle: 4/5 Left: Hip: 4-/5, Knee: 4/5, Ankle: 4/5 Flex: HS: severe, Gastroc: severe, Solues: severe Transfers: requires UE A to get up from floor per pt report Balance/Special Test Scores Functional Gait Assessment Score: 16 % Disability: 46.6700 CATSIB Score (Max score 120 seconds): 57 Lower Extremity Functional Score: 30 30 Second Chair Rise Test Seconds: 10 Goals Goal 1:: Patient will be I with HEP and progression Goal Time Frame: 4-6 Weeks Goal 2:: Patient will get up off the floor without using an outside source Goal Time Frame: 4-6 Weeks Goal 3:: Patient will improve FGA by 5 points Goal Time Frame: 4-6 Weeks Goal 4:: Patient will ambulate >150 feet with a normalized gait pattern Goal Time Frame: 4-6 Weeks Goal 5:: Patient will report 80% improvement Goal Time Frame: 4-6 Weeks Rehabilitation Potential Physical Therapy Diagnosis: Patient presents with decreased LE and core strength/stabilization, proprioception, flex and muscular endurance leading to abnormal gait, fall risk and decreased ability to perform ADL's. Rehabilitation Potential: Fair Anticipated Interventions Patient/Client Instruction: Educate patient on: Benefits of Fitness Program Therapeutic Exercise to Include: Strength training, Endurance training, Balance training, Coordination, Agility training, Body mechanics, Postural training, Flexibilty training, Gait and locomotor training, Neuromotor development, Dynamic Lumbar Stabilization and Scapular Strength/Stabilization For the Purpose of:: To improve muscle performance and motor function Functional Training to Include: Gait training Text: Thank you for the opportunity to evaluate your patient. For Medicare and Medicare HMO plans, please review the plan of care and approve it. It will need to be FAXED BACK to us at [phone] for Medicare purposes. For Medicare only, by signing this I certify the plan of care. Please let me know if there are questions or concerns regarding this plan of care. Physician Signature:____ Date:
--- NOTE | 2025-03-05 13:32 | HP.PTREVAL ---
Re-Evaluation Intro: Dr. Sajan Rolwey MD, It has been my pleasure to treat GIA VIRAMONTES over the last 7 visits for Instability and LE Strengthening. Please see the progress note below for an update on the physical therapy plan of care! Subjective Subjective: Pt feels that he is doing pretty good but he feels that the neuropathy is what is causing his imbalance but he feels that PT is helping. He has pain in his hip and rates it like 6/10. This morning the pain is worse. It is getting better the more he walks. Pt would not mind coming more as he feels that it is helping him. Objective Objective/Function: Gait: walks with decrease hip extension and decreased ability to pick feet up in heel to toe gait pattern with flexion of the knees. Steps: up and down recip with 1 hand rail but he struggles with getting his foot out far enough to clear the step at times....almost like he does not like to weight shift his weight FW. FGA: 17 Plan Plan Plan: Pt would like a HEP to start doing at home but things have been busy with his and not able to start home PT yet. Functional Mobility- gait, stairs and up from the floor- balance HEP Given IE: seated hamstring stretch, HR, marching, hip abd, hip extn Balance/Gait/Functional tests Balance/Special Test Scores Functional Gait Assessment Score: 17 % Disability: 43.3400 CATSIB Score (Max score 120 seconds): 57 Lower Extremity Functional Score: 34 30 Second Chair Rise Test Seconds: 10 Goals Goals Goal 1:: Patient will be I with HEP and progression Goal Time Frame: 4-6 Weeks Goal Progress: Progressing Goal 2:: Patient will get up off the floor without using an outside source Goal Time Frame: 4-6 Weeks Goal 3:: Patient will improve FGA by 5 points Goal Time Frame: 4-6 Weeks Goal Progress: Progressing Goal 4:: Patient will ambulate >150 feet with a normalized gait pattern Goal Time Frame: 4-6 Weeks Goal Progress: Progressing Goal 5:: Patient will report 80% improvement Goal Time Frame: 4-6 Weeks Goal Progress: Progressing Anticipated Interventions Anticipated Interventions Patient/Client Instruction: Educate patient on: Benefits of Fitness Program Therapeutic Exercise to Include: Strength training, Endurance training, Balance training, Coordination, Agility training, Body mechanics, Postural training, Flexibilty training, Gait and locomotor training, Neuromotor development, Dynamic Lumbar Stabilization and Scapular Strength/Stabilization For the Purpose of:: To improve muscle performance and motor function Functional Training to Include: Gait training Re-Evaluation Ending Re-evaluation ending: Please do not hesitate to contact me at [phone] by phone or if you have questions or concerns regarding this new plan of care! Sincerely, Denia Ansari, MPT
--- NOTE | 2025-04-02 13:45 | HP.PTDCSUM ---
Discharge Summary D/C summary: It has been my pleasure to treat GIA VIRAMONTES referred by Dr. Sajan Rowley MD, with the diagnosis of Instability and LE Strengthening for a total of 13 visit(s). Discharge Date: 04/02/25 Please see the following information for a summary of their discharge status. Subjective Subjective: Pt thinks that his balance has improved but he thinks that he is as good as he is going to get. He uses the cane more and feel more steady with it. Pt has been having back pain and it is not going away. Pt able to get up from the floor with something light to steady himself. Pain Right Hip: Pain Intensity (Out of 10): 0 Low back pain: Pain Intensity (Out of 10): 7 Overall Improvement % Improvement: 40 Objective Objective/Function: FGA: 18 Stairs: up and down recip with 2 hand rails. He goes slow. VC's to remind him to see where his feet are going. Discussion about using a cane for balance and to watch and not turn too fast Goals Goal 1:: Patient will be I with HEP and progression Goal Progress: Goal Met Goal 2:: Patient will get up off the floor without using an outside source Goal Progress: Progressing Goal 3:: Patient will improve FGA by 5 points Goal Progress: Progressing Goal 4:: Patient will ambulate >150 feet with a normalized gait pattern Goal Progress: Progressing Goal 5:: Patient will report 80% improvement Goal Progress: Progressing Plan Plan: DC PT to HEP D/C Information Discharge Comments: DC PT to HEP and use a can for an extra balance point d/c sentence: If there are questions or concerns regarding this patient's physical therapy, please feel free to call me at [phone]. Thank you for the referral of this patient. Sincerely, Denia Ansari, MPT Balance/Gait/Functional tests Balance/Special Test Scores Functional Gait Assessment Score: 18 % Disability: 40.0000 CATSIB Score (Max score 120 seconds): 57 Lower Extremity Functional Score: 54 30 Second Chair Rise Test Seconds: 10 Improvement % Improvement: 40
== END 2025-04-02 19:00 | disposition home or self-care (01) ==
LOC: PT 13:00
PROVIDERS: PCP Family Medicine; Referring Provider Family Medicine; Visit Provider Family Medicine
DX: R26.81 Unsteadiness on feet (principal); G62.9 Polyneuropathy, unspecified
CPT/HCPCS: 97110; 97162; 97530

== ENCOUNTER 2025-04-23 09:22 | Emergency (ER) | payer MEDICARE, OTHER, SELFPAY ==
[2025-04-23 09:23] VITALS: BP 119/61; PULSE 78; RESP 16; TEMP 37.1; O2SAT 98; BMI 24.4
--- NOTE | 2025-04-23 09:42 | ED.VIS.BACK ---
HPI History of Present Illness Chief Complaint: Back Detail of Chief Complaint: Onset after near fall 2 to 3 months ago. Also fatigue Informant: patient and family Onset/Context/Timing Onset: Month(s) Context: Sudden Onset Chronic pain exacerbated by: Movement especially twisting to the right and left Injury: - (Near fall over a ladder and apparently lifting boxes) Timing: Continuous and Waxes and wanes Quality: Aching Location: Lumbar Current Severity: Mild Maximum Severity: Moderate Worsened by: improves with Movement, Bending and Lifting; worse with Ambulation Relieved by: Nothing Associated Symptoms Associated Symptoms: - (There is no bowel bladder dysfunction. No saddle paresthesia anesthesia.); Negative for Numbness, Tingling, Radiation to Right Leg, Radiation to Left Leg, Fever, Abdominal Pain, Dysuria, Unable to Ambulate, Unable to Transfer, Urinary Retention, Urinary Incontinence, Constipation or Fecal Incontinence Narrative Narrative: Patient 84-year-old male. He presents with back pain for the past 2 to 3 months after near fall over a ladder and lifting boxes. Patient denies bowel or bladder dysfunction. Patient denies radicular pain. Patient denies foot drop. Daughter informing that he has been fatigued and has less energy. Patient denies dysuria, frequency, urgency or hematuria. Patient denies fever, chills night sweats. Patient denies cough, dyspnea, [place] exertion, orthopnea or PND. Patient has no history of osteoporosis or osteopenia. Prior similar symptoms: No PFSH FORMERLY [facility], 1928–1983 Medical History Hyperlipemia Peripheral arterial disease Hypertension Abnormal nuclear stress test Type 2 diabetes mellitus Family history of cerebral aneurysm Polyneuropathy Dysrhythmia, cardiac Hypothyroidism Stenosis of right carotid artery Essential (primary) hypertension Atherosclerosis of coronary artery of [place] heart without angina pectoris Personal history of malignant melanoma Nonhealing surgical wound Open wound of left forearm Former smoker Melanoma in situ of left upper extremity Vision problems Vascular disease Neuropathy Kidney stones Hearing problem Gout Cataracts, bilateral Arthritis Screening for colon cancer Gangrenous cholecystitis Diabetes mellitus Home Medications ?Medication ?Instructions ?Recorded ?Last Taken ?Type gemfibrozil 600 mg tablet 600 mg PO BID cholesterol 01/01/14 01/08/21 History allopurinol 300 mg tablet 300 mg PO DAILY GOUT 10/21/15 01/08/21 History pantoprazole 40 mg tablet,delayed 40 mg PO DAILY reflux 10/21/15 01/08/21 History release amlodipine 10 mg tablet 10 mg PO DAILY BP 05/21/19 09/22/23 History aspirin 81 mg tablet,delayed 81 mg PO DAILY 06/03/19 09/22/23 History release (Adult Aspirin Regimen) cyanocobalamin (vitamin B-12) 3,000 mcg PO DAILY 06/16/20 01/07/21 History 1,000 mcg capsule levothyroxine 50 mcg tablet 50 mcg PO DAILY THYROID 01/08/21 01/08/21 History lisinopril 40 mg tablet See Rx Instructions .Route 07/05/21 09/22/23 Rx .COMPLEX #90 tabs cholecalciferol (vitamin D3) 25 100 mcg PO DAILY 07/28/22 Unknown History mcg (1,000 unit) capsule glimepiride 4 mg tablet 4 mg PO DAILY 07/28/22 Unknown History vitamins A,C,P-otmd-hpzyad 4,296 1 cap PO BID 02/23/23 Unknown History mcg-226 mg-90 mg capsule (PreserVision AREDS) omega 5-rsg-tzz-fish oil 1,200 mg 2 cap PO DAILY 01/06/24 Unknown History (144 mg-216 mg) capsule (Fish Oil) pregabalin 50 mg capsule 50 mg PO TID 02/05/25 Unknown History duloxetine 60 mg capsule,delayed 60 mg PO QHS #90 caps 02/18/25 Unknown Rx release hydrocodone-acetaminophen 5-325mg 1 tab PO QD-TID PRN pain 02/18/25 Unknown History 5mg-325mg mirtazapine 15 mg tablet 15 mg PO QHS 02/18/25 Unknown History hydrocodone-acetaminophen 5-325mg 1 tab PO Q6H PRN PRN Pain 3 days 04/23/25 Unknown Rx 5mg-325mg #10 TABLETS Allergy/AdvReac Type Severity Reaction Status Date / Time atorvastatin calcium (From AdvReac body aches Verified 04/23/25 09:23 Lipitor) ezetimibe (From Zetia) AdvReac body aches Verified 04/23/25 09:23 rosuvastatin calcium (From AdvReac body aches Verified 04/23/25 09:23 Crestor) Family History Father Diabetes Hypertension High cholesterol Brother High cholesterol Mother Arthritis Heart disease Surgical History History of cholecystectomy History of left heart catheterization (06/10/19) 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) Status post laparoscopic cholecystectomy Social History household members: spouse Smoking Status: Former smoker Tobacco: How many years used: 8 how long ago did patient quit smokin years ago second hand exposure: No alcohol intake: never substance use type: does not use caffeine: Yes Type: coffee Number of servings: 2 nadine/islam: Catholic seatbelt use: always additional social history: DOES NOT USE IBUPROFEN ROS ROS ED Constitutional Constitutional ED: Denies chills, fever(s), subjective, sweats or weight loss Eyes Eyes: Denies blurry vision or change in vision ENT ENT ED: Denies rhinorrhea or sore throat Cardiovascular Cardiovascular: Denies chest pain, orthopnea, palpitations or paroxysmal nocturnal dyspnea Respiratory/Chest Respiratory/Chest: Reports dyspnea and other Details: Dyspnea is been chronic for over a year. ; Denies dyspnea on exertion, orthopnea or paroxysmal nocturnal dyspnea Gastrointestinal Gastrointestinal: Denies abdominal pain, melena, nausea or vomiting Genitourinary Genitourinary ED: Denies dysuria, hematuria or urinary frequency Musculoskeletal Musculoskeletal: Reports back pain; Denies arthralgias or myalgias Integumentary Denies rash Psychiatric Psychiatric: Denies anxiety or depression Endocrine Endocrinology: Denies cold intolerance or heat intolerance Hematologic/Lymphatic Hematologic/Lymphatic: Denies easy bleeding or easy bruising EXAM Physical Exam Const Vital Signs: 04/23/25 09:23 Temperature 98.7 F Temperature Source Oral Pulse Rate 78 Respiratory Rate 16 Blood Pressure 119/61 Blood Pressure Mean 80 Pulse Ox 98 Oxygen Delivery Method Room Air Positive well nourished and well developed General Appearance ED: well developed and NAD; Negative for pallor HEENT Reports dry mucous membranes HEENT Narrative: Head is atraumatic and normocephalic. Ears normal. Nares patent Mouth ED: Yes dry mucous membranes Mouth: dry mucous membranes Eyes PERRL and EOMs intact bilaterally General Eye ED: Negative for pale conjunctiva Neck no lymphadenopathy, supple and no JVD Resp normal respiratory effort and clear to auscultation bilaterally Cardio regular rate, regular rhythm, S1 normal heart sound and S2 normal heart sound; Negative for no murmurs Cardio Narrative: Patient may have ectopic beats. There is definitely a grade 1-2 crescendo decrescendo and systolic murmur noted. GI normal to inspection, nondistended, normoactive bowel sounds, soft to palpation, non-tender, non-distended and no masses GI Narrative: There is no pulsatile mass or abdominal bruit. Back/Spine normal to inspection Back/Spine Narrative: Patient has lumbar tenderness and more specifically right paralumbar discomfort. There is no evidence of trauma. Lumbar Spine / Lower Back: straight leg raise negative bilaterally Extremity normal to inspection and no clubbing, cyanosis or edema Neuro oriented x3 and no sensory deficits noted Plantar Reflex: Downgoing: bilateral Psych mental status grossly normal Skin no rashes or lesions noted and no wounds General Skin Exam: Negative for jaundice or pallor MDM MDM MDM Narrative Medical decision making narrative: Differential diagnosis would include musculoskeletal strain, compression fracture, pathologic fracture, with a complaint of fatigue need to rule out anemia, renal disease and electrolyte abnormality. History & Record Review Additional record(s) reviewed:: Prior inpatient record (He was admitted for hypoxia due to acute viral illness December 2023.), Prior outpatient record (Outside record dated January 11, 2025 for diabetic ulcer of toe right foot was reviewed.), Prior ED visit and Prior labs Lab Data Attestation: I reviewed the patient's lab results. Lab results narrative: CBC reveals mild anemia. This is chronic finding. [facility]ence metabolic panel reveals elevated BUN/creatinine. He is approximate baseline. Glucose is elevated 151. CO2 is slightly decreased with a normal anion gap. Alkaline phosphatase is elevated 169. This is patient's baseline as well. Labs: Laboratory Results - last 24 hr 04/23/25 10:03 WBC 7.4 RBC 3.99 L Hgb 11.9 L Hct 36.5 L MCV 91.5 MCH 29.8 MCHC 32.6 RDW Std Deviation 51.8 H RDW Coeff of Yan 15.9 H Plt Count 209 MPV 10.7 Immature Gran % (Auto) 0.400 Neut % (Auto) 57.9 Lymph % (Auto) 25.3 Summers % (Auto) 9.9 Eos % (Auto) 6.0 H Baso % (Auto) 0.5 Absolute Neuts (auto) 4.3 Absolute Lymphs (auto) 1.86 Nucleated RBC % 0 Sodium 143 Potassium 4.2 Chloride 115 H Carbon Dioxide 16.3 L Anion Gap 12 BUN 37 H Creatinine 1.30 H Estim Creat Clear Calc 47.26 L Est GFR (MDRD) Non-Af 55 L BUN/Creatinine Ratio 28.8 H Glucose 151 H Calcium 9.3 Total Bilirubin 0.23 AST 24 ALT 14 Alkaline Phosphatase 169 H Total Protein 6.7 Albumin 3.6 Globulin 3.1 Albumin/Globulin Ratio 1.2 Radiography Chest X-Ray - ED: Read by ED Physician (Three-view x-ray reveals a compression fracture L1 of unknown age. The only imaging for comparison is an abdominal CT in 2020. The compression fracture was not noted at that time or present.) Diagnostic Testing: Clinical Impression(s) from Imaging Studies Lumbar Spine X-Ray 04/23/25 10:15 IMPRESSION: Compression fractures of the lumbar spine are age indeterminate. Most severe is L1, grade 3. Reading Location: [id number] Treatment and Re-Evaluation Narrative: Patient and daughter were informed of results. He was referred to Dr. Love because of the amount of compression. MRI was not obtained emergently since he has no neurologic deficits or focal findings Discharge Plan Triage Chief Complaint: Back ED Provider: Nick Hughes Dx/Rx/DC Orders Clinical Impression: Compression fracture of L1 vertebra, Renal insufficiency, Peripheral arterial disease, Hyperlipemia, Carotid artery stenosis, Generalized weakness, Chronic anemia Instructions: ED Fracture, Vertebral Compression Prescriptions: New hydrocodone-acetaminophen 5-325 mg tablet 1 tab PO Q6H PRN PRN (Reason: Pain) 3 Days Qty: 10 0RF No Action amlodipine 10 mg tablet 10 mg PO DAILY cyanocobalamin (vitamin B-12) 1,000 mcg capsule 3,000 mcg PO DAILY cholecalciferol (vitamin D3) 25 mcg (1,000 unit) capsule 100 mcg PO DAILY glimepiride 4 mg tablet 4 mg PO DAILY PreserVision AREDS 4,296 mcg-226 mg-90 mg capsule 1 cap PO BID hydrocodone-acetaminophen 5-325 mg tablet 1 tab PO QD-TID PRN (Reason: pain) mirtazapine 15 mg tablet 15 mg PO QHS duloxetine 60 mg capsule,delayed release(DR/EC) 60 mg PO QHS Qty: 90 2RF pregabalin 50 mg capsule 50 mg PO TID gemfibrozil 600 MG tablet 600 mg PO BID Patient Comments: HAD 10/26/15 pantoprazole 40 MG tablet 40 mg PO DAILY Patient Comments: gerd HAD TODAY 10/26/15 allopurinol 300 MG tablet 300 mg PO DAILY levothyroxine 50 mcg tablet 50 mcg PO DAILY Patient Comments: TAKE 1 TABLET BY MOUTH ONCE DAILY omega 6-ful-aed-fish oil [Fish Oil] 1,200 (144-216) mg capsule 2 cap PO DAILY aspirin [Adult Aspirin Regimen] 81 mg tablet,delayed release (DR/EC) 81 mg PO DAILY lisinopril 40 mg tablet See Rx Instructions .ROUTE .COMPLEX Qty: 90 4RF Dose Instruction: Take 1 tablet by mouth once daily Rx Instructions: Take 1 tablet by mouth once daily Primary Care Provider: Sajan Rowley Referrals: Alfredo Goldberg MD [Med Staff - Active Staff, Orthopedics] - 5-7 Days Sajan Rowley MD [Primary Care Provider, Family Practice] Print Language: Tristanian Disposition Disposition: Home, Self Care
[2025-04-23] MEDS: HYDROcodone Bitartrate/Apap 5/325 Tablet PO (10:07)
[2025-04-23 10:14] LABS: Hematocrit 36.5 % (40-54); Hemoglobin 11.9 g/dL (13.0-16.5); Immature Granulocytes Count 0.030 X10^3/uL (0.0-0.0); Mean Corp Hgb Conc 32.6 g/dL (32-36); Mean Corpuscular Volume 91.5 fL (80-94); Mean Platelet Vol. 10.7 fl (6.2-12.0); NRBC Flagged by Analyzer 0 % (0-5); Platelet Count 209 K/mm3 (150-450); RBC Distribution Width CV 15.9 % (11.6-14.6); RBC Distribution Width SD 51.8 fl (35.1-43.9); Red Blood Count 3.99 M/mm3 (4.6-6.2); White Blood Count 7.4 K/mm3 (4.4-11.0)
--- NOTE | 2025-04-23 10:15 | RAD_ITS ---
PROCEDURE: LUMBAR SPINE 2 OR 3 VIEWS 04/23/2025 REASON FOR EXAM: INJURY/PAIN TECHNIQUE: Procedure Code: RADSPLL Modality: DX Procedure: LUMBAR SPINE 2 OR 3 VIEWS COMPARISON: None FINDINGS: Vertebrae: Grade 3 anterior wedge compression fracture of L1. Minimal biconcave compression of L2, L3. Discs: Mild disc space narrowing L2/3, L3/4. Lower lumbar facet hypertrophy. Alignment: Very mild curvature thoracolumbar spine to the left. Mild kyphosis thoracolumbar spine. Other: Aortic atherosclerosis. RAD/Lumbar Spine 2 or 3 Views IMPRESSION: Compression fractures of the lumbar spine are age indeterminate. Most severe i s L1, grade 3. Reading Location: [id number]
[2025-04-23 10:26] LABS: AST(SGOT) 24 U/L (<=37); Alanine Aminotransfer ALT/SGPT 14 U/L (<=46); Albumin, Serum 3.6 g/dL (3.4-4.8); Alkaline Phosphatase 169 U/L (40-129); Anion Gap 12 (5-15); BUN 37 mg/dL (4-19); BUN/Creat Ratio 28.8 RATIO (10-20); Calcium,Total 9.3 mg/dL (7.6-11.0); Carbon Dioxide 16.3 mmol/L (21.0-32.0); Chloride 115 mmol/L (98-108); Estimated Creatinine Clearance 47.26 ml/min (50-250); Globulin 3.1 g/dL (2.2-4.2); Glucose 151 mg/dL (70-99); Potassium 4.2 mmol/L (3.3-5.1)
[2025-04-23 11:25] VITALS: BP 127/75; PULSE 109; O2SAT 100
[2025-04-23 11:34] VITALS: BP 127/75; PULSE 109; RESP 16; TEMP 37.1; O2SAT 100
== END 2025-04-23 11:43 | disposition home or self-care (01) ==
PROVIDERS: Emergency Provider Emergency Medicine; PCP Family Medicine; Visit Provider Emergency Medicine
DX: S32.010A Wedge compression fracture of first lumbar vertebra, initial encounter for closed fracture (principal); E11.51 Type 2 diabetes mellitus with diabetic peripheral angiopathy without gangrene; I10 Essential (primary) hypertension; I65.29 Occlusion and stenosis of unspecified carotid artery; E78.5 Hyperlipidemia, unspecified; G89.29 Other chronic pain; Z87.891 Personal history of nicotine dependence; R53.1 Weakness; I25.10 Atherosclerotic heart disease of native coronary artery without angina pectoris; R53.83 Other fatigue; N28.9 Disorder of kidney and ureter, unspecified; D64.9 Anemia, unspecified; W18.49XA Other slipping, tripping and stumbling without falling, initial encounter
CPT/HCPCS: 72100; 80053; 85025; 99283; A4216

== ENCOUNTER → 2025-04-25 | Outpatient (CLI) | payer MEDICARE, OTHER, SELFPAY ==
--- OUTSIDE RECORDS SUMMARY | 2025-04-25 17:47 | XMS RPT_ITS | CCD ---
Author Organization [facility] Care Team Providers Care Speedometer Inspector Name Role Phone GREG CHAVEZ Unavailable Johana Doty, Physician Primary Care Provider MERRILL Harry Attending Uche CASTRO, KATI FRANKEL Referring Unava ilable NO, PHYSICIAN Primary Care Unavailable Dr. Fidencio Rowley Primary Care Provider [phone] Dr. Teddy Anaya Attending Provider [phone] Amauri Ruelas Attending Provider [phone] Ronnie Merida Attending Provider Dr. Ronnie Merida Referring Provider Dr. Ronnie Merida Other Provider Dr. Fidencio Rowley Referring Provider Ezio LOUVER MORTISER OPERATOR, LOUVER MORTISER OPERATOR-C Debi Attending Provider [phone] Chas LOUVER MORTISER OPERATOR, LOUVER MORTISER OPERATOR-C Star Guevara Attending Provider Dr. Fidencio Rowley Primary Care Provider Dr. Fidencio Rowley Referring Provider Ezio LOUVER MORTISER OPERATOR, LOUVER MORTISER OPERATOR-C Debi Attending Provider [phone] Dr. Teddy Anaya Attending Provider [phone] Chas LOUVER MORTISER OPERATOR, LOUVER MORTISER OPERATOR-C Star Guevara Attending Provider Dr. Mane Solares Attending Provider Dr. Fidencio Rowley Primary Care Provider [phone] Dr. Fidencio Rowley Referring Provider Dr. Mane Solares Attending Provider [phone] Amauri Ruelas Attending Provider [phone] Fidencio Rowley Primary Care Provider Dr. Fidencio Rowley Referring Provider Dr. Mane Solares Attending Provider Hardik LOUVER MORTISER OPERATOR, LOUVER MORTISER OPERATOR-C Suzi Attending Provider KAN Solano Attending Provider Hardik LOUVER MORTISER OPERATOR, LOUVER MORTISER OPERATOR-C Suzi Referring Provider Hardik LOUVER MORTISER OPERATOR, LOUVER MORTISER OPERATOR-C Suzi Other Provider [phone] Dr. Teddy Anaya Attending Provider [phone] Fidencio Rowley Primary Care Provider Dr. Fidencio Rowley Referring Provider Dr. Mane Solares Attending Provider Hardik NAVARRO, LOUVER MORTISER OPERATOR-C Suzi Attending Provider KAN Solano Attending Provider Hardik LOUVER MORTISER OPERATOR, LOUVER MORTISER OPERATOR-C Suzi Referring Provider Hardik NAVARRO, LOUVER MORTISER OPERATOR-C Suzi Other Provider [phone] Dr. Teddy Anaya Attending Provider [phone] Teddy Anaya Other Provider Amrik FARLEY, Dr. Moeller Primary Care Provider Amrik FARLEY, Dr. Moeller Attending Provider Amrik FARLEY, Dr. Moeller Referring Provider Beck FARLEY, Dr. Gilliam Attending Provider Beck FARLEY, Dr. Gilliam Referring Provider [phone] Amrik FARLEY, Dr. Moeller Primary Care Provider Amrik FARLEY, Dr. Moeller Referring Provider Kita FARLEY, Dr. Michael Rousseau Attending Provider Hardik NAVARRO-C, Suzi Attending Provider Hardik NAVARRO-C, Suzi Referring Provider May Bowles Attending Provider Unavailable Amrik FARLEY, Dr. Moeller Attending Provider Lolly Gamboa Attending Provider Amrik FARLEY, Dr. Moeller Primary Care Provider Beck FARLEY, Dr. Gilliam Attending Provider Amrik FARLEY, Dr. Moeller Referring Provider [phone] Amrik FARLEY, Dr. Moeller Primary Care Physicia n Amrik FARLEY, Dr. Moeller Attending Physician Amrik FARLEY, Dr. Moeller Referring Provider [phone] Lolly Gamboa Attending Physician Beck FARLEY, Dr. Gilliam Attending Physician Ranney, Christopher Primary Care Unavailable May Bowles Attending Unavailable Teddy Anaya Attending Unavailable Ranney, Christopher Primary Care Unavailable Ranney, Christopher Referring Unavailable Ranney, Christopher Attending Unavailable Ranney, Christopher Referring Unavailable Ranney, Christopher Primary Care Unavailable Ranney, Christopher Primary Care Unavailable Ranney, Christopher Attending Unavailable Ranney, Christopher Referring Unavailable Ranney, Christopher Primary Care Unavailable Mane Solares Attending Unavailable Mane Solares Referring Unavailable Ranney, Christopher Primary Care Unavailable Hardik LOUVER MORTISER OPERATOR, Suzi Referring Unavailable Hardik LOUVER MORTISER OPERATOR, Suzi Attending Unavailable Ranney, Christopher Primary Care Unavailable Ranney, Christopher Attending Unavailable Ranney, Christopher Referring Unavailable Hughes Nick Attending Unavailable Ranney, Christopher Primary Care Unavailable Lolly Villasenor Attending Unavailable Ranney, Christopher Referring Unavailable Ranney, Christopher Primary Care Unavailable Ranney, Christopher Referring Unavailable Mane Solares Attending Unavailable Ranney, Christopher Primary Care Unavailable Ranney, Christopher Primary Care Unavailable Mane Solares Attending Unavailable Ranney, Christopher Referring Unavailable Ranney, Christopher Primary Care Unavailable Hardik LOUVER MORTISER OPERATOR, Suzi Attending Unavailable Ranney, Christopher Referring Unavailable Allergies Allergy Classification Reported Allergen(s) Allergy Type Date of Onset Reaction(s) Facility (16 sources) atorvastatin; Translations: [atorvastatin calcium] Drug Allergy 06-25-2021 body aches [facility] (15 sources) ezetimibe Drug Allergy 06-25-2021 body aches [facility] (16 sources) rosuvastatin; Translations: [rosuvastatin calcium] Drug Allergy 06-25-2021 body aches [facility] (1 source) ezetimibe Drug Allergy 04-23-2025 [facility] Repository Medications Current Medications Medication Drug Class(es) Dates Sig (Normalized) Sig (Original) acetaminophen 325 mg / HYDROcodone bitartrate 5 mg oral tablet (17 sources) Opioid Agonist Start: 02-18-2025 Start: 10-21-2015 End: 10-26-2015 Hydrocodone-Acetaminophen 1 TABLET tablet Discontinued 1 - 2 {tbl} PO EVERY 4 HOURS NEEDED as needed for Pain October 21, 2015 12:00am October 26, 2015 11:01am Start: 10-21-2015 End: 10-26-2015 take 1 tablet by mouth every four hours as needed Hydrocodone-Acetaminophen Discontinued 1 - 2 TABLET PO EVERY 4 HOURS NEEDED October 21, 2015 12:00am October 26, 2015 11:01am allopurinol 300 mg oral tablet (16 sources) Xanthine Oxidase Inhibitor Start: 09-05-2015 take 1 tablet by mouth once daily amLODIPine 10 mg oral tablet (20 sources) Dihydropyridine Calcium Channel Zachariah Start: 05-21-2019 take 1 tablet by mouth once daily Start: 05-22-2018 End: 05-21-2019 take 2 tablets by mouth once daily Amlodipine 5 mg tablet Discontinued 10 mg PO DAILY May 22, 2018 1:00am May 21, 2019 10:53am blood pressyre Start: 05-22-2018 End: 05-21-2019 take 10 mg by mouth once daily Amlodipine Discontinued 10 MG PO DAILY May 22, 2018 1:00am May 21, 2019 10:53am ascorbic acid 226 mg / beta carotene [id number] unt / cuprous oxide 0.8 mg / dl-alpha tocopheryl acetate 200 unt / zinc oxide 34.8 mg oral capsule (1 source) Vitamin C Start: 02-23-2023 aspirin 81 mg delayed release oral tablet (20 sources) Platelet Aggregation Inhibitor, Nonsteroidal Anti-inflammatory Drug Start: 06-03-2019 take 1 tablet by mouth once daily Start: 01-07-2019 End: 01-08-2019 take 1 tablet by mouth once daily Aspirin 81 MG tablet,chewable Discontinued 81 mg PO DAILY@0800 January 07, 2019 12:00am January 08, 2019 9:10pm Start: 12-27-2018 End: 01-01-2019 take 1 tablet by mouth once daily Aspirin 81 MG tablet,delayed release (DR/EC) Discontinued 81 mg PO DAILY December 27, 2018 12:00am January 01, 2019 3:42pm cholecalciferol 0.025 mg ora l capsule (20 sources) Vitamin D Start: 07-28-2022 take 1 capsule by mo ut once daily Start: 07-28-2022 take 50 ug by mouth once daily Cholecalciferol (Vitamin D3) Active 50 MCG PO DAILY July 28, 2022 4:08pm Start: 06-16-2020 End: 07-28-2022 take 1 capsule by mouth once daily Cholecalciferol (Vitamin D3) 25 mcg (1,000 unit) capsule Discontinued 25 ug PO DAILY June 16, 2020 1:00am July 28, 2022 4:09pm gemfibrozil 600 mg oral tablet (16 sources) Peroxisome Proliferator Receptor alpha Agonist Start: 01-01-2014 take 1 tablet by mouth twice daily glimepiride 4 mg oral tablet (20 sources) Sulfonylurea Start: 07-28-2022 take 1 tablet by mouth once daily Start: 06-16-2020 End: 07-28-2022 take 1 tablet by mouth once daily Glimepiride 2 mg tablet Discontinued 2 mg PO DAILY June 16, 2020 1:00am July 28, 2022 4:07pm Start: 10-07-2015 End: 05-22-2018 take 1 tablet by mouth once daily Glimepiride 1 MG tablet Discontinued 1 mg PO DAILY October 21, 2015 12:00am May 22, 2018 10:38am levothyroxine sodium 0.05 mg oral tablet (16 sources) l-Thyroxine Start: 01-08-2021 take 1 tablet by mouth once daily lisinopril 40 mg oral tablet (20 sources) Angiotensin Converting Enzyme Inhibitor Start: 07-05-2021 take 1 tablet by mouth once daily Lisinopril Active 0 .ROUTE .COMPLEX 90 July 05, 2021 10:00am Take 1 tablet by mouth once daily Start: 07-05-2021 take 1 tablet by prieto th once daily Lisinopril Active 0 .ROUTE .COMPLEX 90 July 05, 2021 9:00am Take 1 tablet by mouth once daily Start: 06-10-2019 End: 07-05-2021 take 1 tablet by mouth once daily Lisinopril 40 mg tablet Discontinued 40 mg PO DAILY 90 3 June 16, 2020 11:18am July 05, 2021 10:00am Start: 05-22-2018 End: 05-21-2019 Lisinopril 40 mg tablet Disc ontinued 20 mg PO DAILY May 22, 2018 1:00am May 21, 2019 10:52am blood pressure Start: 05-22-2018 End: 05-21-2019 take 20 mg by mouth once daily Lisinopril Discontinued 20 MG PO DAILY May 22, 2018 1:00am May 21, 2019 10:52am Start: 09-05-2015 End: 06-10-2019 take 1 tablet by mouth once daily Lisinopril 20 MG tablet Discontinued 20 mg PO DAILY October 21, 2015 12:00am May 22, 2018 10:37am mirtazapine 15 mg oral table t (2 sources) Start: 02-18-2025 take 1 tablet by prieto th at bedtime [place] 4-Tqy-Hqa-Fish Oil (Fi sh Oil) 1,200 (144-216) mg capsule (5 sources) Start: 01-06-2024 Start: 01-06-2024 [place] 3-Dha-Ep a-Fish Oil (Fish Oil) 1,200 (144-216) mg capsule Active 2 NMA PO DAILY January 06, 2024 12:00am pantoprazole 40 mg delayed release oral tablet (15 sources) Proton Pump Inhibitor Start: 10-21-2015 take 1 tablet by mouth once daily pregabalin 50 mg oral capsule (3 sources) Start: 02-05-2025 take 1 capsule by mouth three times daily vitamin b12 1 mg oral capsule (15 sources) Vitamin B12 Start: 06-16-2020 take 3 capsules by mouth once daily Start: 06-16-2020 take 1000 ug by mout h once daily Cyanocobalamin (Vitamin B-12) Active 1000 MCG PO DAILY June 16, 2020 1:00am Vitamins A,C,M-Natz-Stuipg (Preservision Areds) 4,296 mcg-226 mg-90 mg capsule (9 sources) Start: 02-23-2023 Vitamins A,C,E -Zinc-Copper (Preservision Areds) 4,296 mcg-226 mg-90 mg capsule Active 1 NMA PO TWICE A DAY February 23, 2023 12:00am Start: 02-23-2023 take 1 capsule by mo [facility] twice daily Vitamins A,C,P-Vmpd-Zgqhvq (Preservision Areds) 4,296 mcg-226 mg-90 mg capsule Active 1 CAP PO TWICE A DAY February 22, 2023 11:00pm Start: 02-23-2023 take 1 capsule by mo [facility] twice daily Vitamins A,C,O-Akyl-Xdwjvn (Preservision Areds) 4,296 mcg-226 mg-90 mg capsule Active 1 CAP PO TWICE A DAY February 23, 2023 12:00am Completed/Discontinued Medications Medication Drug Class(es) Dates Sig (Normalized) Sig (Original) acetaminophen 500 mg / diphenhydrAMINE hydrochloride 25 mg oral tablet (20 sources) Histamine-1 Receptor Antagonist Start: 01-08-2021 End: 01-06-2024 Diphenhydramine-Ac etaminophen (Acetaminophen Pm) 25-500 mg Tablet Discontinued 1 - 2 {tbl} PO AT BEDTIME as needed for Sleep January 08, 2021 12:00am January 06, 2024 11:29pm Start: 12-27-2018 End: 05-21-2019 Diphenhydramine-Acetaminophe n 1 EACH tablet Discontinued 2 NMA PO AT BEDTIME December 27, 2018 12:00am May 21, 2019 10:54am sleep Start: 12-27-2018 End: 05-21-2019 Diphenhydramine-Acetaminophe n Discontinued 2 EACH PO AT BEDTIME December 27, 2018 12:00am May 21, 2019 10:54am Start: 10-21-2015 End: 05-22-2018 Diphenhydramine-Acetaminophe n 1 EACH tablet Discontinued 2 NMA PO AT BEDTIME as needed for Sleep October 21, 2015 12:00am May 22, 2018 10:38am Start: 10-21-2015 End: 05-22-2018 Diphenhydramine-Acetaminophe n Discontinued 2 EACH PO AT BEDTIME October 21, 2015 12:00am May 22, 2018 10:38am cefadroxil 500 mg oral capsule (15 sources) Cephalosporin Antibacterial Start: 01-01-2019 End: 03-20-2019 take 1 capsule by mouth twice daily Cefadroxil 500 MG capsule Discontinued 500 mg PO TWICE A DAY 28 January 01, 2019 12:00am March 20, 2019 9:38am clindamycin 300 mg oral capsule (15 sources) Lincosamide Antibacterial Start: 01-28-2019 End: 03-20-2019 take 1 capsule by mouth three times daily Clindamycin Hcl (Cleocin Hcl) 300 mg capsule Discontinued 300 mg PO THREE TIMES A DAY 21 January 28, 2019 12:00am March 20, 2019 9:38am DULoxetine 60 mg delayed release oral capsule (20 sources) Serotonin and Norepinephrine Reuptake Inhibitor Start: 10-13-2022 End: 02-18-2025 take 1 capsule by mouth at bedtime Duloxetine 60 mg capsule,delayed release(DR/EC) Discontinued 60 mg PO AT BEDTIME 90 October 14, 2024 1:41pm February 18, 2025 10:33am Start: 06-25-2021 End: 10-13-2022 take 1 capsule by mouth once daily Duloxetine 20 mg capsule,delayed release(DR/EC) Discontinued 20 mg PO DAILY June 25, 2021 1:00am October 13, 2022 11:13am furosemide 40 mg oral tablet (15 sources) Loop Diuretic Start: 01-12-2021 End: 05-26-2021 take 1 tablet by mouth once daily Furosemide 40 mg tablet Discontinued 40 mg PO DAILY 30 January 12, 2021 12:00am May 26, 2021 10:05am gabapentin 800 mg oral tablet (16 sources) Anti-epilepti c Agent Start: 06-25-2021 End: 02-05-2025 take 1 tablet by mouth three times daily Gabapentin 800 mg tablet Discontinued 800 mg PO THREE TIMES A DAY June 25, 2021 1:00am February 05, 2025 1:09pm hydroCHLOROthiazide 12.5 mg oral capsule (15 sources) Thiazide Diuretic Start: 10-21-2015 End: 05-22-2018 take 1 capsule by mouth once daily Hydrochlorothiazide 12.5 MG capsule Discontinued 12.5 mg PO DAILY October 21, 2015 12:00am May 22, 2018 10:38am Lactobac Acidoph-Fructooligos (10 sources) Start: 01-01-2019 End: 01-28-2019 Lactobac Acidoph-Fructooligos Discontinued 1 EACH PO TWICE A DAY January 01, 2019 12:00am January 28, 2019 11:02am Start: 01-01-2019 End: 01-28-2019 Lactobac Acidoph-Fructooligo s Discontinued 1 EACH PO TWICE A DAY December 31, 2018 11:00pm January 28, 2019 10:02am Lactobac Acidoph-Fructooligo s 1 EACH tablet (5 sources) Start: 01-01-2019 End: 01-28-2019 Lactobac Acidoph-Fructooligo s 1 EACH tablet Discontinued 1 NMA PO TWICE A DAY January 01, 2019 12:00am January 28, 2019 11:02am Start: 01-01-2019 End: 01-28-2019 Lactobac Acidoph-Fructooligo s 1 EACH tablet Discontinued 1 NMA PO TWICE A DAY January 01, 2019 12:00am January 28, 2019 11:02am levoFLOXacin 500 mg oral tablet (20 sources) Quinolone Antimicrobial Start: 01-12-2021 End: 05-26-2021 take 1 tablet by mouth once daily Levofloxacin 500 mg tablet Discontinued 500 mg PO DAILY 4 0 January 12, 2021 12:00am May 26, 2021 10:04am Start: 02-06-2019 End: 05-21-2019 take 1 tablet by mouth once daily Levofloxacin (Levaquin) 500 mg tablet Discontinued 500 mg PO DAILY 30 30 0 February 08, 2019 12:00am March 09, 2019 12:00am March 10, 2019 12:08am 24 hr metFORMIN hydrochloride 500 mg extended release oral tablet (20 sources) Biguanide Start: 07-28-2022 End: 11-01-2024 take 1 tablet by mouth once daily Metformin 500 mg tablet extended release 24 hr Discontinued 500 mg PO DAILY July 28, 2022 1:00am November 01, 2024 7:58am Start: 07-22-2021 take 1 tablet by prieto th once daily metFORMIN (GLUCOPHAGE-XR) 500 MG 24 hr tablet Take 500 mg by mouth daily . 0 07/22/2021 Active Start: 06-25-2021 End: 07-28-2022 take 1 tablet by mouth once daily Metformin 500 mg tablet Discontinued 500 mg PO DAILY June 25, 2021 1:00am July 28, 2022 4:07pm metoprolol tartrate 25 mg oral tablet (20 sources) beta-Adrenergic Zachariah Start: 05-21-2019 End: 06-16-2020 take 1 tablet by mouth once daily Metoprolol Tartrate 25 mg tablet Discontinued 25 mg PO DAILY 1 0 May 21, 2019 11:29am June 16, 2020 11:18am On Hold: fatigue Start: 12-27-2018 End: 05-21-2019 Metoprolol Tartrate 50 MG ta blet Discontinued 25 mg PO DAILY December 27, 2018 12:42pm May 21, 2019 10:55am heart Start: 12-27-2018 End: 05-21-2019 take 25 mg by mouth once daily Metoprolol Tartrate Dis continued 25 MG PO DAILY December 27, 2018 12:42pm May 21, 2019 10:55am Start: 07-12-2018 End: 12-27-2018 Metoprolol Tartrate 50 mg ta blet Discontinued 25 mg PO TWICE A DAY 90 July 12, 2018 6:09pm December 27, 2018 12:43pm Start: 07-12-2018 End: 12-27-2018 take 25 mg by mouth twice daily Metoprolol Tartrate Di scontinued 25 MG PO TWICE A DAY July 12, 2018 6:09pm December 27, 2018 12:43pm Start: 10-21-2015 End: 07-12-2018 take 1 tablet by mouth twice daily Metoprolol Tartrate 25 mg tablet Discontinued 25 mg PO TWICE A DAY 180 June 11, 2018 3:30pm July 12, 2018 6:10pm [place]-3 Fatty Acids (Fish Oil Concentrate) 1,000 mg capsule (20 sources) Start: 07-28-2022 End: 01-06-2024 take 1 capsule by mouth twice daily [place]-3 Fatty Acids (Fish Oil Concentrate) 1,000 mg capsule Discontinued 1000 mg PO TWICE A DAY July 28, 2022 4:08pm January 06, 2024 11:18pm Start: 07-28-2022 take 1 capsule by mo ut twice daily [place]-3 Fatty Acids (Fish Oil Concentrate) 1,000 mg capsule Active 1000 MG PO TWICE A DAY July 28, 2022 4:08pm Start: 07-28-2022 take 1 capsule by mo ut twice daily [place]-3 Fatty Acids (Fish Oil Concentrate) 1,000 mg capsule Active 1000 MG PO TWICE A DAY July 28, 2022 3:08pm Start: 06-16-2020 End: 07-28-2022 [place]-3 Fatty Acids (Fish Oi l Concentrate) 1,000 mg capsule Discontinued 2000 mg PO TWICE A DAY June 16, 2020 1:00am July 28, 2022 4:09pm Start: 06-16-2020 End: 07-28-2022 [place]-3 Fatty Acids (Fish Oi l Concentrate) 1,000 mg capsule Discontinued 2000 MG PO TWICE A DAY June 16, 2020 1:00am July 28, 2022 4:09pm Start: 06-16-2020 End: 07-28-2022 [place]-3 Fatty Acids (Fish Oi l Concentrate) 1,000 mg capsule Discontinued 2000 MG PO TWICE A DAY June 16, 2020 12:00am July 28, 2022 3:09pm Start: 06-16-2020 [place]-3 Fatty Acids (Fish Oil Concentrate) 1,000 mg capsule Active 2000 MG PO TWICE A DAY June 16, 2020 12:00am microencapsulated potassium chloride 20 meq extended release oral tablet (20 sources) Start: 01-12-2021 End: 06-25-2021 Potassium Chloride (Klor-Con M20) 20 mEq tablet,ER particles/crystals Discontinued 20 meq PO DAILY 30 January 12, 2021 12:00am June 25, 2021 2:34pm Start: 12-27-2018 End: 06-05-2019 take 2 tablets by mouth twice daily Potassium Chloride 10 MEQ tablet Discontinued 20 meq PO TWICE A DAY December 27, 2018 12:00am June 05, 2019 9:11am potassium Start: 12-27-2018 End: 06-05-2019 take 20 mEq by mouth twice daily Potassium Chloride Discontinued 20 MEQ PO TWICE A DAY December 27, 2018 12:00am June 05, 2019 9:11am rOPINIRole 0.5 mg oral tablet (8 sources) Nonergot Dopamine Agonist Start: 06-29-2023 End: 07-27-2023 take 1 tablet by mouth at bedtime Ropinirole 0.5 mg tablet Discontinued 0.5 mg PO AT BEDTIME 30 June 29, 2023 1:00am July 27, 2023 12:12pm Problems Active Problems Problem Classification Problem Date Documented Date Episodic/Chronic Cardiac dysrhythmias (20 sources) Cardiac arrhythmia; Translations: [Cardiac arrhythmia, unspecified] 07-28-2022 Chronic Cardiac dysrhythmias (15 sources) Bradycardia; Translations: [Bradycardia, unspecified] 05-21-2019 Episodic Coronary atherosclerosis and other heart disease (17 sources) Coronary arteriosclerosis; Translations: [Atherosclerotic heart disease of [place] coronary artery without angina pectoris] Onset: 01-09-2014 Chronic Diabetes mellitus with complications (7 sources) Type 2 diabetes mellitus; Translations: [Type 2 diabetes mellitus with other specified complication] Onset: 09-05-2024 Chronic Diabetes mellitus without complication (9 sources) Diabetes mellitus; Translations: [Type 2 diabetes mellitus without complications] Onset: 09-03-2021 09-03-2021 Chronic Disorders of lipid metabolism (20 sources) Hyperlipidemia; Translations: [Hyperlipidemia, unspecified] Onset: 12-31-2013 Chronic Essential hypertension (20 sources) Essential hypertension; Translations: [Essential (primary) hypertension] Onset: 12-31-2013 Chronic Fever of unknown origin (5 sources) Fever; Translations: [Fever, unspecified] 01-15-2024 Episodic Melanomas of skin (15 sources) 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 Max R ICA velocity 123.5Carotid Duplex 06/15/22: Moderate (50-69%) stenosis right extracranial internal carotid. Max. R ICA velocity 132.4 Other circulatory disease (9 sources) Carotid bruit; Translations: [Other specified symptoms and signs involving the circulatory and respiratory systems] 10-14-2024 Episodic Other connective tissue disease (2 sources) H/O: gout; Translations: [Personal history of other diseases of the musculoskeletal system and connective tissue] Onset: 09-03-2021 Episodic Other diseases of kidney and ureters (1 source) Disorder of kidney and ureter, unspecified; Translations: [Disorder of kidney and ureter, unspecified] Onset: 04-23-2025 Episodic Other eye disorders (1 source) Fourth nerve palsy; 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, right eye] Episodic Other fractures (1 source) Wedge compression fracture of first lumbar vertebra, initial encounter for closed fracture; Translations: [Wedge compression fracture of first lumbar vertebra, initial encounter for closed fracture] Onset: 04-23-2025 Episodic Other hereditary and degenerative nervous system conditions (5 sources) Restless legs; Translations: [Restless legs syndrome] 10-31-2023 Chronic Other lower respiratory disease (15 sources) Dyspnea; Translations: [Dyspnea, unspecified] 01-27-2021 Episodic Other lower respiratory disease (2 sources) Dyspnea, unspecified; Translations: [Other respiratory abnormalities] 07-19-2022 Episodic Other lower respiratory disease (5 sources) Hypoxia; Translations: [Hypoxemia] 01-15-2024 Episodic Other nervous system disorders (15 sources) Polyneuropathy; Translations: [Polyneuropathy, unspecified] 10-13-2022 Chronic Other nervous system disorders (3 sources) Polyneuropathy, unspecified; Translations: [Unspecified hereditary and idiopathic peripheral neuropathy] 10-13-2022 Chronic Other screening for suspected conditions (not mental disorders or infectious disease) (20 sources) Patient encounter status; Translations: [Encounter for screening for malignant neoplasm of colon] 05-17-2019 Episodic Pancreatic disorders (not diabetes) (15 sources) Acute pancreatitis; Translations: [Acute pancreatitis without necrosis or infection, unspecified] 01-08-2021 Episodic Peripheral and visceral atherosclerosis (16 sources) Peripheral vascular disease, unspecified; Translations: [Peripheral arterial disease] 10-13-2022 Chronic Residual codes; unclassified (11 sources) Family history of aneurysm of artery; Translations: [Family history of ischemic heart disease and other diseases of the circulatory system] 10-13-2022 Episodic Residual codes; unclassified (1 source) Family history of ischemic heart disease and other diseases of the circulatory system; Translations: [Family history of stroke (cerebrovascular)] 10-13-2022 Episodic Screening and history of mental health and substance abuse codes (2 sources) Ex-smoker; Translations: [Personal history of nicotine dependence] Onset: 09-03-2021 Episodic Thyroid disorders (2 sources) Hypothyroidism; Translations: [Hypothyroidism, unspecified] Onset: 09-03-2021 Chronic Unclassified (1 source) Unknown / UNK(Unknown) Onset: 10-29-2015 Unclassified (8 sources) Stenosis of carotid artery; Translations: [I65.29 - Occlusion and stenosis of unspecified carotid artery] Viral infection (16 sources) Herpes labialis; Translations: [Herpesviral vesicular dermatitis] 08-06-2023 Episodic Past or Other Problems Problem Classification Problem Date Documented Da te Episodic/Chronic Coronary atherosclerosis and other heart disease (5 sources) Presence of aortocoronary bypass graft; Translations: [Aortocoronary bypass status] Onset: 01-03-2014 07-28-2022 Episodic Malaise and fatigue (1 source) Other fatigue; Translations: [Other fatigue] Onset: 12-26-2024 Episodic Other circulatory disease (1 source) Other specified symptoms and signs involving the circulatory and respiratory systems; Translations: [Other specified symptoms and signs involving the circulatory and respiratory systems] Onset: 10-31-2024 Episodic Results Test Name Value Interpretation Reference Range Facility CBC W/Diff, Automatedon 10-1 Absolute Lymph 1.86 X10 3/uL Normal 0.83-4.51 [facility] Comment on above: Performed By: #### L 100.0100, L500.4050 #### [facility] [address] [place], [address] Absolute Neut 4.3 X10 3/uL Normal 2.0-7.7 [facility] Comment on above: Performed By: #### L 100.0100, L500.4050 #### [facility] [address] [place], [address] Basophils/100 WBC (Bld) 0.5 % Normal 0-1 [facility] Comment on above: Performed By: #### L 100.0100, L500.4050 #### [facility] [address] [place], [address] Eosinophils/100 WBC (Bld) 6.0 % High 0-5 [facility] Comment on above: Performed By: #### L 100.0100, L500.4050 #### [facility] [address] [place], [address] Erythrocyte distribution width (RBC) [Ratio] 15.9 % High 11.6-14.6 [facility] Comment on above: Performed By: #### L 100.0100, L500.4050 #### [facility] [address] [place], [address] Hematocrit (Bld) [Volume fraction] 36.5 % Low 40-54 [facility] Comment on above: Performed By: #### L 100.0100, L500.4050 #### [facility] [address] [place], [address] Hemoglobin (Bld) [Mass/Vol] 11.9 g/dL Low 13.0-16.5 [facility] Comment on above: Performed By: #### L 100.0100, L500.4050 #### [facility] [address] [place], [address] IG% 0.400 Normal 0.0-0.9 [facility] Comment on above: Result Comment: IG% - Immature Granulocytes (promyelocytes, myelocytes and metamyelocytes) > 1% indicates that a LEFT SHIFT is Present. Performed By: #### L 100.0100, L500.4050 #### [facility] [address] [place], [address] Lymphocytes/100 WBC (Bld) 25.3 % Normal 19-41 [facility] Comment on above: Performed By: #### L 100.0100, L500.4050 #### [facility] [address] [place], [address] MCH (RBC) [Entitic mass] 29.8 pg Normal 27.0-32.0 [facility] Comment on above: Performed By: #### L 100.0100, L500.4050 #### [facility] [address] [place], [address] MCHC (RBC) [Mass/Vol] 32.6 g/dL Normal 32-36 [facility] Comment on above: Performed By: #### L 100.0100, L500.4050 #### [facility] [address] [place], [address] MCV (RBC) [Entitic vol] 91.5 fL Normal 80-94 [facility] Comment on above: Performed By: #### L 100.0100, L500.4050 #### [facility] [address] [place], [address] Monocytes/100 WBC (Bld) 9.9 % Normal 0-10 [facility] Comment on above: Performed By: #### L 100.0100, L500.4050 #### [facility] [address] [place], [address] Neutrophils/100 WBC (Bld) 57.9 % Normal 47-70 [facility] Comment on above: Performed By: #### L 100.0100, L500.4050 #### [facility] [address] [place], [address] Nucleated RBC (Bld) [#/Vol] 0 10*3/uL Normal 0-5 [facility] Comment on above: Performed By: #### L 100.0100, L500.4050 #### [facility] [address] [place], [address] Platelet mean volume (Bld) [Entitic vol] 10.7 fL Normal 6.2-12.0 [facility] Comment on above: Performed By: #### L 100.0100, L500.4050 #### [facility] [address] [place], [address] Platelets (Bld) [#/Vol] 209 10*3/uL Normal 150-450 [facility] Comment on above: Performed By: #### L 100.0100, L500.4050 #### [facility] [address] [place], [address] RBC (Bld) [#/Vol] 3.99 10*6/uL Low 4.6-6.2 [facility] Comment on above: Performed By: #### L 100.0100, L500.4050 #### [facility] [address] [place], [address] RDW SD 51.8 fl High 35.1-43.9 [facility] Comment on above: Performed By: #### L 100.0100, L500.4050 #### [facility] [address] [place], [address] WBC (Bld) [#/Vol] 7.4 10*3/uL Normal 4.4-11.0 [facility] Comment on above: Performed By: #### L 100.0100, L500.4050 #### [facility] [address] [place], [address] Comprehensive Metabolic Prof [facility] 04-23-2025 Albumin [Mass/Vol] 3.6 g/dL Normal 3.4-4.8 [facility] Comment on above: Performed By: #### L 100.0100, L500.4050 #### [facility] [address] [place], [address] Albumin/Globulin [Mass ratio] 1.2 {ratio} Normal 0.9-2.4 [facility] Comment on above: Performed By: #### L 100.0100, L500.4050 #### [facility] [address] [place], [address] ALK PHOS 169 U/L High 40-129 [facility] Comment on above: Performed By: #### L 100.0100, L500.4050 #### [facility] [address] [place], [address] ALT [Catalytic activity/Vol] 14 U/L Normal <=46 [facility] Comment on above: Performed By: #### L 100.0100, L500.4050 #### [facility] [address] [place], [address] AST [Catalytic activity/Vol] 24 U/L Normal <=37 [facility] Comment on above: Performed By: #### L 100.0100, L500.4050 #### [facility] [address] [place], [address] Bilirubin [Mass/Vol] 0.23 mg/dL Normal 0.00-1.30 [facility] Comment on above: Performed By: #### L 100.0100, L500.4050 #### [facility] [address] [place], [address] BUN/CRE 28.8 RATIO High 10-20 [facility] Comment on above: Performed By: #### L 100.0100, L500.4050 #### [facility] [address] [place], [address] Calcium [Mass/Vol] 9.3 mg/dL Normal 7.6-11.0 [facility] Comment on above: Performed By: #### L 100.0100, L500.4050 #### [facility] [address] [place], [address] Chloride [Moles/Vol] 115 mmol/L High 98-108 [facility] Comment on above: Performed By: #### L 100.0100, L500.4050 #### [facility] [address] [place], [address] CO2 [Moles/Vol] 16.3 mmol/L Low 21.0-32.0 [facility] Comment on above: Performed By: #### L 100.0100, L500.4050 #### [facility] [address] [place], [address] Creatinine [Mass/Vol] 1.30 mg/dL High 0.70-1.20 [facility] Comment on above: Performed By: #### L 100.0100, L500.4050 #### [facility] [address] [place], [address] ECRCL 47.26 ml/min Low 50-250 [facility] Comment on above: Performed By: #### L 100.0100, L500.4050 #### [facility] [address] [place], [address] GAP 12 Normal 5-15 [facility] Comment on above: Performed By: #### L 100.0100, L500.4050 #### [facility] [address] [place], [address] GFR/1.73 sq M.predicted among non-blacks MDRD (S/P/Bld) [Vol rate/Area] 55 mL/min/{1.73_m2} Low >60 [facility] Comment on above: Result Comment: mL/m in/1.73m2 CKD-EPI Creatinine Equation (2020) Performed By: #### L 100.0100, L500.4050 #### [facility] [address] [place], [address] Globulin (S) [Mass/Vol] 3.1 g/dL Normal 2.2-4.2 [facility] Comment on above: Performed By: #### L 100.0100, L500.4050 #### [facility] [address] [place], [address] Glucose [Mass/Vol] 151 mg/dL High 70-99 [facility] Comment on above: Performed By: #### L 100.0100, L500.4050 #### [facility] [address] [place], [address] Potassium [Moles/Vol] 4.2 mmol/L Normal 3.3-5.1 [facility] Comment on above: Performed By: #### L 100.0100, L500.4050 #### [facility] [address] [place], [address] Sodium [Moles/Vol] 143 mmol/L Normal 133-145 [facility] Comment on above: Performed By: #### L 100.0100, L500.4050 #### [facility] [address] [place], [address] T PROT 6.7 g/dL Normal 5.9-8.4 [facility] Comment on above: Performed By: #### L 100.0100, L500.4050 #### [facility] [address] [place], [address] Urea nitrogen [Mass/Vol] 37 mg/dL High 4-19 [facility] Comment on above: Performed By: #### L 100.0100, L500.4050 #### [facility] [address] [place], [address] Emergency Department Summary on 04-23-2025 Emergency Department Summary [facility] Medical Records Department [address] [place] [address] Emergency Department Summary 04/23/25 MR#: [id number] Acct: [id number] Name: GIA VIRAMONTES Rep #: [id number] : 1940 84 From: Nick Hughes MD PCP: Dr. Sajan Rowley MD Status:REG ER Location: ED HPI History of Present Illness Chief Complaint: Back Detail of Chief Complaint: Onset after near fall 2 to 3 months ago. Also fatigue Informant: patient and family Onset/Context/Timin g Onset: Month(s) Context: Sudden Onset Chronic pain exacerbated by: Movement especially twisting to the right and left Injury: - (Near fall over a ladder and apparently lifting boxes) Timing: Continuous and Waxes and wanes Quality: Aching Location: Lumbar Current Severity: Mild Maximum Severity: Moderate Worsened by: improves with Movement, Bending and Lifting; worse with Ambulation Relieved by: Nothing Associated Symptoms Associated Symptoms: - (There is no bowel bladder dysfunction. No saddle paresthesia anesthesia.); Negative for Numbness, Tingling, Radiation to Right Leg, Radiation to Left Leg, Fever, Abdominal Pain, Dysuria, Unable to Ambulate, Unable to Transfer, Urinary Retention, Urinary Incontinence, Constipation or Fecal Incontinence Narrative Narrative: Patient 84-year-old male. He presents with back pain for the past 2 to 3 months after near fall over a ladder and lifting boxes. Patient denies bowel or bladder dysfunction. Patient denies radicular pain. Patient denies foot drop. Daughter informing that he has been fatigued and has less energy. Patient denies dysuria, frequency, urgency or hematuria. Patient denies fever, chills night sweats. Patient denies cough, dyspnea, [place] exertion, orthopnea or PND. Patient has no history of osteoporosis or osteopenia. Prior similar symptoms: No PFSH PFSH Medical History Hyperlipemia Peripheral arterial disease Hypertension Abnormal nuclear stress test Type 2 diabetes mellitus Family history of cerebral aneurysm Polyneuropathy Dysrhythmia, cardiac Hypothyroidism Stenosis of right carotid artery Essential (primary) hypertension Atherosclerosis of coronary artery of [place] heart without angina pectoris Personal history of malignant melanoma Nonhealing surgical wound Open wound of left forearm Former smoker Melanoma in situ of left upper extremity Vision problems Vascular disease Neuropathy Kidney stones Hearing problem Gout Cataracts, bilateral Arthritis Screening for colon cancer Gangrenous cholecystitis Diabetes mellitus Home Medications ???Medication ???Instructions ???Recorded ???Last Taken ???Type gemfibrozil 600 mg tablet 600 mg PO BID cholesterol 01/01/14 01/08/21 History allopurinol 300 mg tablet 300 mg PO DAILY GOUT 10/21/15 07/0 08/30 History pantoprazole 40 mg tablet,delayed 40 mg PO DAILY reflux 10/21/15 History release amlodipine 10 mg tablet 10 mg PO DAILY BP 05/21/19 4 History aspirin 81 mg tablet,delayed 81 mg PO DAILY 06/03/19 09/22/23 H istory release (Adult Aspirin Regimen) cyanocobalamin (vitamin B-12) 3,000 mcg PO DAILY 06/16/20 History 1,000 mcg capsule levothyroxine 50 mcg tablet 50 mcg PO DAILY THYROID 01/08/21 0 01/08/21 History lisinopril 40 mg tablet See Rx Instructions .Route 1 09/22/23 Rx .COMPLEX #90 tabs cholecalciferol (vitamin D3) 25 100 mcg PO DAILY 07/28/22 Unknown History mcg (1,000 unit) capsule glimepiride 4 mg tablet 4 mg PO DAILY 07/28/22 Unknown His tory vitamins A,C,Y-wjgt-ebnrfg 4,296 1 cap PO BID 02/23/23 Unknown Hist ory mcg-226 mg-90 mg capsule (PreserVision AREDS) omega 0-oem-ktx-fish oil 1,200 mg 2 cap PO DAILY 01/06/24 Unknown H istory (144 mg-216 mg) capsule (Fish Oil) pregabalin 50 mg capsule 50 mg PO TID 02/05/25 Unknown Hist ory duloxetine 60 mg capsule,delayed 60 mg PO QHS #90 caps 02/18/25 Unk nown Rx release hydrocodone-acetami nophen 5-325mg 1 tab PO QD-TID PRN pain 02/18/25 Unknown History 5mg-325mg mirtazapine 15 mg tablet 15 mg PO QHS 02/18/25 Unknown Hist ory hydrocodone-acetami nophen 5-325mg 1 tab PO Q6H PRN PRN Pain 3 days 04/23/25 Unknown Rx 5mg-325mg #10 TABLETS Allergy/AdvReac Type Severity Reaction Status Date / Time atorvastatin calcium (From AdvReac body aches Verified 04/23/25 09:23 Lipitor) ezetimibe (From Zetia) AdvReac body aches Verified 04/23/25 09:23 rosuvastatin calcium (From AdvReac body aches Verified 04/23/25 09:23 Crestor) Family History Father Diabetes Hypertension High cholesterol Brother High cholesterol Mother Arthritis Heart disease Surgical History ... Normal [facility] Lumbar Spine 2 or 3 Viewson 04-23-2025 Lumbar Spine 2 or 3 Views [facility] [address] [place] [address] Lumbar Spine 2 or 3 Views MR#: [id number] Acct: [id number] Name: GIA VIRAMONTES Rep #: [id number] : 1940 M 84 From: Mendez Dalal MD PCP: Dr. Sajan Rowley MD Status: REG ER Study: Lumbar Spine 2 or 3 Views Date of Exam: Exam# [id number] Ordering Dr: Nick Hughes MD PROCEDURE: LUMBAR SPINE 2 OR 3 VIEWS 04/23/2025 REASON FOR EXAM: INJURY/PAIN TECHNIQUE: Procedure Code: RADSPLL Modality: DX Procedure: LUMBAR SPINE 2 OR 3 VIEWS COMPARISON: None FINDINGS: Vertebrae: Grade 3 anterior wedge compression fracture of L1. Minimal biconcave compression of L2, L3. Discs: Mild disc space narrowing L2/3, L3/4. Lower lumbar facet hypertrophy. Alignment: Very mild curvature thoracolumbar spine to the left. Mild kyphosis thoracolumbar spine. Other: Aortic atherosclerosis. RAD/Lumbar Spine 2 or 3 Views IMPRESSION: Compression fractures of the lumbar spine are age indeterminate. Most severe is L1, grade 3. Reading Location: [id number] CC: Dr. Sajan Rowley MD; Dr. Nick Hughes MD It Systems Engineer: Signed Normal [facility] PT D/C Summary (1)on 025 PT D/C Summary (1) [facility] Physical Therapy [facility] [address] [place] [address] [address] [place] [address] / REHABILITATION SERVICES DISCHARGE SUMMARY MR#: [id number] Acct: [id number] Name: GIA VIRAMONTES Rep #: [id number] : 1940 84 From: Denia GROSSMAN Referring Dr.: Dr. Sajan Rowley MD Status: REG RCR Insurance: MEDICARE PART A B [employer] Discharge Summary D/C summary: It has been my pleasure to treat GIA VIRAMONTES referred by Dr. Sajan Rowley MD, with the diagnosis of Instability and LE Strengthening for a total of 13 visit(s). Discharge Date: 04/02/25 Please see the following information for a summary of their discharge status. Subjective Subjective: Pt thinks that his balance has improved but he thinks that he is as good as he is going to get. He uses the cane more and feel more steady with it. Pt has been having back pain and it is not going away. Pt able to get up from the floor with something light to steady himself. Pain Right Hip: Pain Intensity (Out of 10): 0 Low back pain: Pain Intensity (Out of 10): 7 Overall Improvement % Improvement: 40 Objective Objective/Function: FGA: 18 Stairs: up and down recip with 2 hand rails. He goes slow. VC's to remind him to see where his feet are going. Discussion about using a cane for balance and to watch and not turn too fast Goals Goal 1:: Patient will be I with HEP and progression Goal Progress: Goal Met Goal 2:: Patient will get up off the floor without using an outside source Goal Progress: Progressing Goal 3:: Patient will improve FGA by 5 points Goal Progress: Progressing Goal 4:: Patient will ambulate >150 feet with a normalized gait pattern Goal Progress: Progressing Goal 5:: Patient will report 80% improvement Goal Progress: Progressing Plan Plan: DC PT to HEP D/C Information Discharge Comments: DC PT to HEP and use a can for an extra balance point d/c sentence: If there are questions or concerns regarding this patient's physical therapy, please feel free to call me at [phone]. Thank you for the referral of this patient. Sincerely, CHAUNCEY Fowler Balance/Gait/Functi onal tests Balance/Special Test Scores Functional Gait Assessment Score: 18 % Disability: 40.0000 CATSIB Score (Max score 120 seconds): 57 Lower Extremity Functional Score: 54 30 Second Chair Rise Test Seconds: 10 Improvement % Improvement: 40 04/02/25 2426 CC: Dr. Sajan Rowley MD Signed Normal [facility] Re-Evaluation - PT (1)on Re-Evaluation - PT (1) [facility] [address] [place] [address] / REEVALUATION / MEDICARE RECERTIFICATION PHYSICAL THERAPY MR#: [id number] Acct: [id number] Name: GIA VIRAMONTES Rep #: [id number] : 1940 84 From: Denia Ansari MPT Referring Dr.: Dr. Sajan Rowley MD Status:REG RCR Insurance: MEDICARE PART A B [employer] Re-Evaluation Intro: Dr. Sajan Rowley MD, It has been my pleasure to treat GIA VIRAMONTES over the last 7 visits for Instability and LE Strengthening. Please see the progress note below for an update on the physical therapy plan of care! Subjective Subjective: Pt feels that he is doing pretty good but he feels that the neuropathy is what is causing his imbalance but he feels that PT is helping. He has pain in his hip and rates it like 6/10. This morning the pain is worse. It is getting better the more he walks. Pt would not mind coming more as he feels that it is helping him. Objective Objective/Function: Gait: walks with decrease hip extension and decreased ability to pick feet up in heel to toe gait pattern with flexion of the knees. Steps: up and down recip with 1 hand rail but he struggles with getting his foot out far enough to clear the step at times....almost like he does not like to weight shift his weight FW. FGA: 17 Plan Plan Plan: Pt would like a HEP to start doing at home but things have been busy with his and not able to start home PT yet. Functional Mobility- gait, stairs and up from the floor- balance HEP Given IE: seated hamstring stretch, HR, marching, hip abd, hip extn Balance/Gait/Functi onal tests Balance/Special Test Scores Functional Gait Assessment Score: 17 % Disability: 43.3400 CATSIB Score (Max score 120 seconds): 57 Lower Extremity Functional Score: 34 30 Second Chair Rise Test Seconds: 10 Goals Goals Goal 1:: Patient will be I with HEP and progression Goal Time Frame: 4-6 Weeks Goal Progress: Progressing Goal 2:: Patient will get up off the floor without using an outside source Goal Time Frame: 4-6 Weeks Goal 3:: Patient will improve FGA by 5 points Goal Time Frame: 4-6 Weeks Goal Progress: Progressing Goal 4:: Patient will ambulate >150 feet with a normalized gait pattern Goal Time Frame: 4-6 Weeks Goal Progress: Progressing Goal 5:: Patient will report 80% improvement Goal Time Frame: 4-6 Weeks Goal Progress: Progressing Anticipated Interventions Anticipated Interventions Patient/Client Instruction: Educate patient on: Benefits of Fitness Program Therapeutic Exercise to Include: Strength training, Endurance training, Balance training, Coordination, Agility training, Body mechanics, Postural training, Flexibilty training, Gait and locomotor training, Neuromotor development, Dynamic Lumbar Stabilization and Scapular Strength/Stabilizat ion For the Purpose of:: To improve muscle performance and motor function Functional Training to Include: Gait training Re-Evaluation Ending Re-evaluation ending: Please do not hesitate to contact me at [phone] by phone or if you have questions or concerns regarding this new plan of care! Sincerely, CHAUNCEY Fowler 03/05/25 1332 CC: Dr. Sajan Rowley MD Signed For Medicare only, by signing this I certify the plan of care. _ Physicians Signature Date Normal [facility] Neurology Visit Reporton Neurology Visit Report [facility] [address] [place] [address], [address] [place], [place] [id number] OFFICE VISIT Date of Service: 02/18/25 MR#: [id number] Acct: [id number] Name: GIA VIRAMONTES Rep #: [id number] : 1940 Provider: Dr. Mane dias MD Age/Sex: 84/M Location: [facility].BN Status: Signed HPI HPI Chief Complaint: 4 month f/u Details: Interim History: Gia returns for follow-up visit. He has a history of hypertension, diabetes mellitus, coronary artery disease status post CABG in 2013, hypothyroidism, melanoma status post excision around 2014, peripheral arterial disease, and renal calculi. He has been experiencing numbness in the feet since the . Over the years, this has progressed to the level just above the ankles. Since around 2018, he has also been experiencing neuropathic pain in the feet described as throbbing, burning and a pins sensation. His bilateral foot neuropathic pain occurs when he is at rest at night. He does not experience significant pain in the feet when he ambulates. He has had mild low back pain since the . He is not experiencing radicular pain in the lower extremities. He denied having weakness. He does have some gait imbalance but denied having dizziness or lightheadedness. He denied having numbness or pain in the upper extremities. He has chronic hearing loss. He had diplopia in the past which was corrected with extraocular eye muscle surgery. Gabapentin was of only modest benefit for his neuropathic pain. He has seen a spray ii painter, Dr. Bergeron, earlier in 2024; a lumbar injection was not of benefit; initiation of pregabalin earlier in 2024 has been of significant benefit in reducing his lower extremity neuropathic pain. Duloxetine 60 mg daily has been of some benefit for his neuropathic pain. Duloxetine has been of benefit for his anxiety. He denied having leg restlessness. A trial of ropinirole did not result in improvement of his lower extremity symptoms and ropinirole was discontinued. Nonhemodynamically significant carotid artery stenosis that is being monitored with carotid ultrasounds (last performed in October 2024). He has arterial disease of the lower extremities. He denied having gluteal or calf claudication. On his prior assessment in October 2022, right dorsalis pedis pulse was +2 and left posterior tibial and left dorsalis pedis pulses were absent. He has seen a nurse practitioner at his vascular surgeon's office (Dr. Ruelas) regarding his carotid disease and is to follow-up at that office in 2025. He has a family history of cerebral aneurysm. He had MRA in 2022 did not reveal evidence of aneurysm. His laboratory evaluation for polyneuropathy revealed an abnormal serum free light chains and elevated glucose. A subsequent serum protein electrophoresis, serum immunofixation and urine immunofixation were normal. He uses Biofreeze for his foot pain and this has been of some benefit. He is currently receiving physical therapy. Physical Exam: Neuro: The patient is awake and alert and responds appropriately; speech is fluent; motor strength is 5/5 in the left foot dorsiflexors and 4+/5 in the right foot dorsiflexors; gait is slightly unsteady Neck: Bilateral carotid bruits are auscultated Heart: Regular rate and rhythm On exam in June 2023, bilateral carotid bruits were auscultated. Supplemental Info Head MRI (01/14/2019): FINDINGS: There is asymmetry of the ventricles consistent with an anatomic variant. There are multiple white matter hyperintensities, distributed throughout the deep white matter tracts of the cerebral hemispheres, consistent with moderate chronic white matter ischemic changes. Normal bilateral basal ganglia.??? Normal thalami.??? There is no extra-axial fluid accumulation. Normal flow voids within the major intracranial circulation suggesting patency by spin echo criteria. Normal sella turcica, pituitary gland, infundibular stalk, optic chiasm and hypothalamus.??? Normal tectal plate and pineal gland. Normal midbrain, rubin and medulla.??? Normal cerebellum.??? Normal basal cisterns.??? Normal bilateral temporal bones.??? Normal bilateral internal auditory canals. There are bilateral ocular lens implants with otherwise normal intraorbital contents.??? Normal visualized paranasal sinuses.??? Right mastoid sinus disease.??? Normal visualized soft tissue structures.??? Normal visualized upper cervical spine. IMPRESSION: No evidence of metastatic disease on this limited noncontrast study. Moderate microangiopathic white matter disease. No evidence of acute infarct or hemorrhage. These images were reviewed on 10/13/2022. Moderate diffuse age-related cerebral atrophy is noted. Moderate bilateral periventricular and subcortical white matter chronic small vessel ischemic disease is noted. 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 Normal [facility] Inital Evaluation (1) - PTon 02-04-2025 Inital Evaluation (1) - PT [facility] Physical Therapy [facility] [address] [place] [address] / REHABILITATION SERVICES INITIAL EVALUATION MR#: [id number] Acct: [id number] Name: GIA VIRAMONTES Rep #: [id number] : 1940 84 From: Steph Monroy DPT Referring Dr.: Dr. Sajan Rowley MD Status: REG RCR Insurance: MEDICARE PART A B [employer] Patient's Visit Information Visit Information Visit Information: GIA VIRAMONTES is a 84 year old M referred to Physical Therapy by Dr. Sajan Rowley MD with a diagnosis of Instability and LE Strengthening. Date of Evaluation: 02/04/25 Physical Therapist: Steph Monroy DPT Visit Plan Frequency: 2x /Week Duration: 4 Weeks Plan: Functional Mobility- gait, stairs and up from the floor- balance HEP Given IE: seated hamstring stretch, HR, marching, hip abd, hip extn Subjective Subjective: Patient reports that when he gets down on the ground he can't get back up. He has neuropathy in his feet and it changes his balance. He also has a lower energy level. He fell the other day over boxes- so he has a little bit of back pain currently but not normally painful. He reports that he falls 2-3x a while ago but not recently. He reports that he is normally doing things around the house- he loves to be outside doing arcos and such. He does most of the cooking and cleaning but its mostly just "survival". They do have someone that brings in some meals. They have stairs at home- he goes up/down with a railing on both sides- he does them daily. No problem the first time but the more he does them the more challenging they become. The neuropathy came to the ankles but he want to pain mgmt and they put him on lyrica and it seems to be helping. PMHx/Meds: see chart. Objective Objective: Posture: forward head, rounded shoulders- can correct but does not maintain- does not fully extend left knee to obtain upright posture Gait: bent knees- mild crouched gait pattern, decreased stance on left LE. No AD Stairs: bilateral UE A- recip pattern both asc/desc- poor control with descent HR/TR: able with UE A SLS: weight shift only ROM: Left Knee: lacks 15 degrees of extension Strength: Core: fair minus, Right: Hip: 4/5, Knee: 4+/5, Ankle: 4/5 Left: Hip: 4-/5, Knee: 4/5, Ankle: 4/5 Flex: HS: severe, Gastroc: severe, Solues: severe Transfers: requires UE A to get up from floor per pt report Balance/Special Test Scores Functional Gait Assessment Score: 16 % Disability: 46.6700 CATSIB Score (Max score 120 seconds): 57 Lower Extremity Functional Score: 30 30 Second Chair Rise Test Seconds: 10 Goals Goal 1:: Patient will be I with HEP and progression Goal Time Frame: 4-6 Weeks Goal 2:: Patient will get up off the floor without using an outside source Goal Time Frame: 4-6 Weeks Goal 3:: Patient will improve FGA by 5 points Goal Time Frame: 4-6 Weeks Goal 4:: Patient will ambulate >150 feet with a normalized gait pattern Goal Time Frame: 4-6 Weeks Goal 5:: Patient will report 80% improvement Goal Time Frame: 4-6 Weeks Rehabilitation Potential Physical Therapy Diagnosis: Patient presents with decreased LE and core strength/stabilizat ion, proprioception, flex and muscular endurance leading to abnormal gait, fall risk and decreased ability to perform ADL's. Rehabilitation Potential: Fair Anticipated Interventions Patient/Client Instruction: Educate patient on: Benefits of Fitness Program Therapeutic Exercise to Include: Strength training, Endurance training, Balance training, Coordination, Agility training, Body mechanics, Postural training, Flexibilty training, Gait and locomotor training, Neuromotor development, Dynamic Lumbar Stabilization and Scapular Strength/Stabilizat ion For the Purpose of:: To improve muscle performance and motor function Functional Training to Include: Gait training Text: Thank you for the opportunity to evaluate your patient. For Medicare and Medicare HMO plans, please review the plan of care and approve it. It will need to be FAXED BACK to us at [phone] for Medicare purposes. For Medicare only, by signing this I certify the plan of care. Please let me know if there are questions or concerns regarding this plan of care. Physician Signature: __Date: 02/04/25 1426 CC: Dr. Sajan Rowley MD ELR Signed Normal [facility] MR/BMS.BVSon 02-04-2025 MR/BMS.BVS [facility] Vascular Surgery [address] [place] [address] OFFICE VISIT Date of Service: 02/05/25 MR#: [id number] Acct: [id number] Name: GIA VIRAMONTES Rep #: [id number] : 1940 Provider: ANUSHA Mcdaniel Age/Sex: 84/M Location: [facility] [place] Status: Signed Intake Vital Signs 11/01/24 07:19 02/05/25 13:15 Height 6 ft Weight: 167 lb BP 106/61 Blood Pressure Location Lt brachial Position Sitting Respiration 16 Pulse 62 Pulse Source Monitor Temp 98.4 F Temp Source Temporal Pulse Oximetry (%) 94 Oxygen Delivery Method room air Intake Visit Reasons: Consult Right Carotid Stenosis Chief Complaint: feet feel like pins and needles at hs Is patient in pain?: Yes Allergies atorvastatin calcium (From Lipitor) Adverse Reaction (Verified 02/05/25 13:14) body aches ezetimibe (From Zetia) Adverse Reaction (Verified 02/05/25 13:14) body aches rosuvastatin calcium (From Crestor) Adverse Reaction (Verified 02/05/25 13:14) body aches Medications ???Medication ???Instructions ???Recorded ???Confirmed ???Type gemfibrozil 600 mg tablet 600 mg PO BID cholesterol 01/01/14 02/05/25 History allopurinol 300 mg tablet 300 mg PO DAILY GOUT 10/21/15 07/ History pantoprazole 40 mg tablet,delayed 40 mg PO DAILY reflux 10/21/15 History release amlodipine 10 mg tablet 10 mg PO DAILY BP 05/21/19 5 History aspirin 81 mg tablet,delayed 81 mg PO DAILY 06/03/19 02/05/25 H istory release (Adult Aspirin Regimen) cyanocobalamin (vitamin B-12) 3,000 mcg PO DAILY 06/16/20 History 1,000 mcg capsule levothyroxine 50 mcg tablet 50 mcg PO DAILY THYROID 01/08/21 0 02/05/25 History lisinopril 40 mg tablet See Rx Instructions .Route 1 02/05/25 Rx .COMPLEX #90 tabs cholecalciferol (vitamin D3) 25 100 mcg PO DAILY 07/28/22 02/05/25 History mcg (1,000 unit) capsule glimepiride 4 mg tablet 4 mg PO DAILY 07/28/22 02/05/25 Hi story vitamins A,C,P-kpei-fxuwtd 4,296 1 cap PO BID 02/23/23 02/05/25 His tory mcg-226 mg-90 mg capsule (PreserVision AREDS) omega 5-yka-ijq-fish oil 1,200 mg 2 cap PO DAILY 01/06/24 02/05/25 History (144 mg-216 mg) capsule (Fish Oil) duloxetine 60 mg capsule,delayed 60 mg PO QHS #90 caps 10/14/24 Rx release pregabalin 50 mg capsule 50 mg PO TID 02/05/25 02/05/25 His tory Have you [facility] in the past year?: [facility] Hyperlipemia Peripheral arterial disease Hypertension Abnormal nuclear stress test Type 2 diabetes mellitus Family history of cerebral aneurysm Polyneuropathy Dysrhythmia, cardiac Hypothyroidism Stenosis of right carotid artery Essential (primary) hypertension Atherosclerosis of coronary artery of [place] heart without angina pectoris Personal history of malignant melanoma Nonhealing surgical wound Open wound of left forearm Former smoker Melanoma in situ of left upper extremity Vision problems Vascular disease Neuropathy Kidney stones Hearing problem Gout Cataracts, bilateral Arthritis Screening for colon cancer Gangrenous cholecystitis Diabetes mellitus Surgical History History of cholecystectomy History of left heart catheterization (06/10/19) 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) Status post laparoscopic cholecystectomy Family History Father Diabetes Hypertension High cholesterol Brother High cholesterol Mother Arthritis Heart disease Social History (Updated 02/05/25 @ 13:14 by Raissa Guaman MA) household members: spouse Smoking Status: Former smoker Tobacco: How many years used: 8 how long ago did patient quit smokin years ago second hand exposure: No alcohol intake: never substance use type: does not use caffeine: Yes Type: coffee Number of servings: 2 nadine/spiritism: Nondenominational seatbelt use: always additional social history: DOES NOT USE IBUPROFEN HPI HPI HPI: GIA VIRAMONTES, is a 84 M who presents to the office today for annual follow-up of his carotid artery disease. He had a recent surveillance carotid duplex 10/2024 which demonstrated 50-69% R ICA stenosis with max PSV 174.1/29.2 cm/s and <50% L ICA stenosis. He denies any episodes of focal neurologic symptoms such as unilateral weakness/numbness, facial droop, monocular vision loss, dysarthria, vertigo. He does also have a history of PAD. Most recent arterial study 12/2023 with R JANETH 0.74 but all vessels otherwise noncompressible and biphasic waveforms throughout. At last OV, no claudication symptoms, he'd had a R foot ulceration that was well-healing. This ulceration has (more content not included)... Normal [facility] Absolute lymphocyte countOrd ered By: Sajan Rowley on 12-20-2024 Lymphocytes Auto (Unsp spec) [#/Vol] 1.74 10*3/uL 0.83-4.51 [facility] Absolute neutrophil countOrd ered By: Sajan Rowley on 12-20-2024 Neutrophils (Bld) [#/Vol] 3.2 10*3/uL 2.0-7.7 [facility] Amorphous sediment detection in urine sediment by light microscopyOrdered By: Sajan Rowley on 12-20-2024 Amorphous sediment LM Ql (Urine sed) 1+ [facility] Anion gap in Serum or Plasma Ordered By: Sajan Rowley on 12-20-2024 Anion gap [Moles/Vol] 13 mmol/L 5-15 [facility] Automated lymphocyte count a s percentage of total leukocytesOrdered By: Sajan Rowley on 12-20-2024 Lymphocytes/100 WBC Auto (Unsp spec) 26.0 % 19-41 [facility] BUN/creatinine ratioOrdered By: Miguelgeorges Amrik on 12-20-2024 Urea nitrogen/Creatinine [Mass ratio] 27.6 mg/mg High 10-20 [facility] Basophil percentageOrdered B y: Garyruthie Amrik on 12-20-2024 Basophils/100 WBC (Bld) 0.3 % 0-1 [facility] Bilirubin Test strip Ql (U)O rdered By: Sajan Rowley on 12-20-2024 Bilirubin Ql (U) Negative Negative [facility] Bilirubin, totalOrdered By: Sajan Rowley on 12-20-2024 Bilirubin [Mass/Vol] 0.35 mg/dL 0.00-1.30 [facility] CBC W/Diff, Automatedon 12-08 Absolute Lymph 1.74 X10 3/uL Normal 0.83-4.51 [facility] Comment on above: Order Comment: Order Date: 12/19/24Order Info: 183- - CBCDOrder Info: [id number] - SED Performed By: #### L 100.0100, L500.4050 #### [facility] [address] [place], [address] Absolute Neut 3.2 X10 3/uL Normal 2.0-7.7 [facility] Comment on above: Order Comment: Order Date: 12/19/24Order Info: 183- - CBCDOrder Info: [id number] - SED Performed By: #### L 100.0100, L500.4050 #### [facility] [address] [place], [address] Basophils/100 WBC (Bld) 0.3 % Normal 0-1 [facility] Comment on above: Order Comment: Order Date: 12/19/24Order Info: 183-1 - CBCDOrder Info: [id number] - SED Performed By: #### L 100.0100, L500.4050 #### [facility] [address] [place], [address] Eosinophils/100 WBC (Bld) 17.2 % High 0-5 [facility] Comment on above: Order Comment: Order Date: 12/19/24Order Info: 183-1 - CBCDOrder Info: [id number] - SED Performed By: #### L 100.0100, L500.4050 #### [facility] [address] [place], [address] Erythrocyte distribution width (RBC) [Ratio] 14.3 % Normal 11.6-14.6 [facility] Comment on above: Order Comment: Order Date: 12/19/24Order Info: 183- - CBCDOrder Info: [id number] - SED Performed By: #### L 100.0100, L500.4050 #### [facility] [address] [place], [address] Hematocrit (Bld) [Volume fraction] 37.5 % Low 40-54 [facility] Comment on above: Order Comment: Order Date: 12/19/24Order Info: 183- - CBCDOrder Info: [id number] - SED Performed By: #### L 100.0100, L500.4050 #### [facility] [address] [place], [address] Hemoglobin (Bld) [Mass/Vol] 12.2 g/dL Low 13.0-16.5 [facility] Comment on above: Order Comment: Order Date: 12/19/24Order Info: 183- - CBCDOrder Info: [id number] - SED Performed By: #### L 100.0100, L500.4050 #### [facility] [address] [place], [address] IG% 0.100 Normal 0.0-0.9 [facility] Comment on above: Order Comment: Order Date: 12/19/24Order Info: 4-1 - CBCDOrder Info: [id number] - SED Result Comment: IG% - Immature Granulocytes (promyelocytes, myelocytes and metamyelocytes) > 1% indicates that a LEFT SHIFT is Present. Performed By: #### L 100.0100, L500.4050 #### [facility] [address] [place], [address] Lymphocytes/100 WBC (Bld) 26.0 % Normal 19-41 [facility] Comment on above: Order Comment: Order Date: 12/19/24Order Info: 018-1 - CBCDOrder Info: [id number] - SED Performed By: #### L 100.0100, L500.4050 #### [facility] [address] [place], [address] MCH (RBC) [Entitic mass] 30.7 pg Normal 27.0-32.0 [facility] Comment on above: Order Comment: Order Date: 12/19/24Order Info: 183- - CBCDOrder Info: [id number] - SED Performed By: #### L 100.0100, L500.4050 #### [facility] [address] [place], [address] MCHC (RBC) [Mass/Vol] 32.5 g/dL Normal 32-36 [facility] Comment on above: Order Comment: Order Date: 12/19/24Order Info: 018- - CBCDOrder Info: [id number] - SED Performed By: #### L 100.0100, L500.4050 #### [facility] [address] [place], [address] MCV (RBC) [Entitic vol] 94.5 fL High 80-94 [facility] Comment on above: Order Comment: Order Date: 12/19/24Order Info: 018-1 - CBCDOrder Info: [id number] - SED Performed By: #### L 100.0100, L500.4050 #### [facility] [address] [place], [address] Monocytes/100 WBC (Bld) 8.8 % Normal 0-10 [facility] Comment on above: Order Comment: Order Date: 12/19/24Order Info: 018-1 - CBCDOrder Info: [id number] - SED Performed By: #### L 100.0100, L500.4050 #### [facility] [address] [place], [address] Neutrophils/100 WBC (Bld) 47.6 % Normal 47-70 [facility] Comment on above: Order Comment: Order Date: 12/19/24Order Info: 183-1 - CBCDOrder Info: [id number] - SED Performed By: #### L 100.0100, L500.4050 #### [facility] [address] [place], [address] Nucleated RBC (Bld) [#/Vol] 0 10*3/uL Normal 0-5 [facility] Comment on above: Order Comment: Order Date: 12/19/24Order Info: 183- - CBCDOrder Info: [id number] - SED Performed By: #### L 100.0100, L500.4050 #### [facility] [address] [place], [address] Platelet mean volume (Bld) [Entitic vol] 10.4 fL Normal 6.2-12.0 [facility] Comment on above: Order Comment: Order Date: 12/19/24Order Info: 183-1 - CBCDOrder Info: [id number] - SED Performed By: #### L 100.0100, L500.4050 #### [facility] [address] [place], [address] Platelets (Bld) [#/Vol] 213 10*3/uL Normal 150-450 [facility] Comment on above: Order Comment: Order Date: 12/19/24Order Info: 183-1 - CBCDOrder Info: 61924-5 - SED Performed By: #### L 100.0100, L500.4050 #### [facility] [address] [place], [address] RBC (Bld) [#/Vol] 3.97 10*6/uL Low 4.6-6.2 [facility] Comment on above: Order Comment: Order Date: 12/19/24Order Info: 018- - CBCDOrder Info: [id number] - SED Performed By: #### L 100.0100, L500.4050 #### [facility] [address] [place], [address] RDW SD 48.7 fl High 35.1-43.9 [facility] Comment on above: Order Comment: Order Date: 12/19/24Order Info: 183- - CBCDOrder Info: [id number] - SED Performed By: #### L 100.0100, L500.4050 #### [facility] [address] [place], [address] WBC (Bld) [#/Vol] 6.7 10*3/uL Normal 4.4-11.0 [facility] Comment on above: Order Comment: Order Date: 12/19/24Order Info: 01810-08 - CBCDOrder Info: [id number] - SED Performed By: #### L 100.0100, L500.4050 #### [facility] [address] [place], [address] CRPon 12-20-2024 C-REACTIVE PROT < 3.00 Normal 0.0-3.0 [facility] Comment on above: Order Comment: Order Date: 12/19/24 Order Info: 0786-1 - CMP Order Info: [id number] - CRP Order Info: 3016-3 - TSH Order Info: 2498-4 - FE Performed By: #### L 101.9900, L503.6150, L400.0001, L501.9520, L500.4050, L501.6710, L100.0100 #### [facility] [address] [place], [place], [id number] Carbon dioxide, total [Moles /volume] in Central venous bloodOrdered By: Sajan Rowley on 12-20-2024 CO2 [Moles/Vol] 20.5 mmol/L Low 21.0-32.0 [facility] Chloride assayOrdered By: Ulisses Rowley on 12-20-2024 Chloride [Moles/Vol] 111 mmol/L High 98-108 [facility] Comprehensive Metabolic Prof ilon 12-20-2024 Albumin [Mass/Vol] 4.1 g/dL Normal 3.4-4.8 [facility] Comment on above: Order Comment: Order Date: 12/19/24 Order Info: 0786-1 - CMP Order Info: 14015-5 - CRP Order Info: 3 - TSH Order Info: 2494 - FE Performed By: #### L 101.9900, L503.6150, L400.0001, L501.9520, L500.4050, L501.6710, L100.0100 #### [facility] [address] [place], [place], [id number] Albumin/Globulin [Mass ratio] 1.2 {ratio} Normal 0.9-2.4 [facility] Comment on above: Order Comment: Order Date: 12/19/24 Order Info: 0786-1 - CMP Order Info: [id number] - CRP Order Info: 3 - TSH Order Info: 2498-4 - FE Performed By: #### L 101.9900, L503.6150, L400.0001, L501.9520, L500.4050, L501.6710, L100.0100 #### [facility] [address] [place], [place], [id number] ALK PHOS 135 U/L High 40-129 [facility] Comment on above: Order Comment: Order Date: 12/19/24 Order Info: 0786-1 - CMP Order Info: [id number] - CRP Order Info: 301-3 - TSH Order Info: 2497-10 - FE Performed By: #### L 101.9900, L503.6150, L400.0001, L501.9520, L500.4050, L501.6710, L100.0100 #### [facility] [address] [place], [place], [address] ALT [Catalytic activity/Vol] 17 U/L Normal <=46 [facility] Comment on above: Order Comment: Order Date: 12/19/24 Order Info: 785-1 - CMP Order Info: [id number] - CRP Order Info: 3015-09 - TSH Order Info: 2497-10 - FE Performed By: #### L 101.9900, L503.6150, L400.0001, L501.9520, L500.4050, L501.6710, L100.0100 #### [facility] [address] [place], [place], [id number] AST [Catalytic activity/Vol] 24 U/L Normal <=37 [facility] Comment on above: Order Comment: Order Date: 12/19/24 Order Info: 785-07 - CMP Order Info: [id number] - CRP Order Info: 3015-09 - TSH Order Info: 2497-10 - FE Performed By: #### L 101.9900, L503.6150, L400.0001, L501.9520, L500.4050, L501.6710, L100.0100 #### [facility] [address] [place], [place], [address] Bilirubin [Mass/Vol] 0.35 mg/dL Normal 0.00-1.30 [facility] Comment on above: Order Comment: Order Date: 12/19/24 Order Info: 86-1 - CMP Order Info: [id number] - CRP Order Info: 3015-09 - TSH Order Info: 2494 - FE Performed By: #### L 101.9900, L503.6150, L400.0001, L501.9520, L500.4050, L501.6710, L100.0100 #### [facility] [address] [place], [address] BUN/CRE 27.6 RATIO High 10-20 [facility] Comment on above: Order Comment: Order Date: 12/19/24 Order Info: 0786-1 - CMP Order Info: 81605-9 - CRP Order Info: 3015-3 - TSH Order Info: 2498-4 - FE Performed By: #### L 101.9900, L503.6150, L400.0001, L501.9520, L500.4050, L501.6710, L100.0100 #### [facility] [address] [place], [address] Calcium [Mass/Vol] 10.2 mg/dL Normal 7.6-11.0 [facility] Comment on above: Order Comment: Order Date: 12/19/24 Order Info: 785-1 - CMP Order Info: 81597-0 - CRP Order Info: 3015-09 - TSH Order Info: [id number] - FE Performed By: #### L 101.9900, L503.6150, L400.0001, L501.9520, L500.4050, L501.6710, L100.0100 #### [facility] [address] [place], [address] Chloride [Moles/Vol] 111 mmol/L High 98-108 [facility] Comment on above: Order Comment: Order Date: 12/19/24 Order Info: 0786-1 - CMP Order Info: 85566-6 - CRP Order Info: 3016-3 - TSH Order Info: 2498-4 - FE Performed By: #### L 101.9900, L503.6150, L400.0001, L501.9520, L500.4050, L501.6710, L100.0100 #### [facility] [address] [place], [address] CO2 [Moles/Vol] 20.5 mmol/L Low 21.0-32.0 [facility] Comment on above: Order Comment: Order Date: 12/19/24 Order Info: 0786-1 - CMP Order Info: 81774-2 - CRP Order Info: 3 - TSH Order Info: 2498-4 - FE Performed By: #### L 101.9900, L503.6150, L400.0001, L501.9520, L500.4050, L501.6710, L100.0100 #### [facility] [address] [place], [place], [address] Creatinine [Mass/Vol] 1.17 mg/dL Normal 0.70-1.20 [facility] Comment on above: Order Comment: Order Date: 12/19/24 Order Info: 0786- - CMP Order Info: [id number] - CRP Order Info: 3 - TSH Order Info: 2494 - FE Performed By: #### L 101.9900, L503.6150, L400.0001, L501.9520, L500.4050, L501.6710, L100.0100 #### [facility] [address] [place], [place], [id number] GAP 13 Normal 5-15 [facility] Comment on above: Order Comment: Order Date: 12/19/24 Order Info: 0786-1 - CMP Order Info: [id number] - CRP Order Info: 3 - TSH Order Info: [id number] - FE Performed By: #### L 101.9900, L503.6150, L400.0001, L501.9520, L500.4050, L501.6710, L100.0100 #### [facility] [address] [place], [place], [address] GFR/1.73 sq M.predicted among non-blacks MDRD (S/P/Bld) [Vol rate/Area] 62 mL/min/{1.73_m2} Normal >60 [facility] Comment on above: Order Comment: Order Date: 12/19/24 Order Info: 785-1 - CMP Order Info: [id number] - CRP Order Info: 3 - TSH Order Info: 2497-10 - Result Comment: mL/m in/1.73m2 CKD-EPI Creatinine Equation (2020) Performed By: #### L 101.9900, L503.6150, L400.0001, L501.9520, L500.4050, L501.6710, L100.0100 #### [facility] [address] [place], [address] Globulin (S) [Mass/Vol] 3.5 g/dL Normal 2.2-4.2 [facility] Comment on above: Order Comment: Order Date: 12/19/24 Order Info: 785-1 - CMP Order Info: [id number] - CRP Order Info: 3015-09 - TSH Order Info: 2497-10 - Performed By: #### L 101.9900, L503.6150, L400.0001, L501.9520, L500.4050, L501.6710, L100.0100 #### [facility] [address] [place], [address] Glucose [Mass/Vol] 63 mg/dL Low 70-99 [facility] Comment on above: Order Comment: Order Date: 12/19/24 Order Info: 1 - CMP Order Info: [id number] - CRP Order Info: [id number] - TSH Order Info: [id number] - Performed By: #### L 101.9900, L503.6150, L400.0001, L501.9520, L500.4050, L501.6710, L100.0100 #### [facility] [address] [place], [address] Potassium [Moles/Vol] 3.9 mmol/L Normal 3.3-5.1 [facility] Comment on above: Order Comment: Order Date: 12/19/24 Order Info: [id number] - CMP Order Info: [id number] - CRP Order Info: [id number] - TSH Order Info: [id number] - FE Performed By: #### L 101.9900, L503.6150, L400.0001, L501.9520, L500.4050, L501.6710, L100.0100 #### [facility] [address] [place], [address] Sodium [Moles/Vol] 145 mmol/L Normal 133-145 [facility] Comment on above: Order Comment: Order Date: 12/19/24 Order Info: [id number] - CMP Order Info: [id number] - CRP Order Info: [id number] - TSH Order Info: [id number] - FE Performed By: #### L 101.9900, L503.6150, L400.0001, L501.9520, L500.4050, L501.6710, L100.0100 #### [facility] [address] [place], [address] T PROT 7.5 g/dL Normal 5.9-8.4 [facility] Comment on above: Order Comment: Order Date: 12/19/24 Order Info: [id number] - CMP Order Info: - CRP Order Info: [id number] - TSH Order Info: [id number] - FE Performed By: #### L 101.9900, L503.6150, L400.0001, L501.9520, L500.4050, L501.6710, L100.0100 #### [facility] [address] [place], [address] Urea nitrogen [Mass/Vol] 32 mg/dL High 4-19 [facility] Comment on above: Order Comment: Order Date: 12/19/24 Order Info: [id number] - CMP Order Info: [id number] - CRP Order Info: [id number] - TSH Order Info: [id number] - FE Performed By: #### L 101.9900, L503.6150, L400.0001, L501.9520, L500.4050, L501.6710, L100.0100 #### [facility] [address] [place], [place], [address] Eosinophil percentageOrdered By: Sajan Rowley on 12-20-2024 Eosinophils/100 WBC (Bld) 17.2 % High 0-5 [facility] Erythrocyte Sed Rateon 12-20 SED RATE 37 mm/hr High 0-20 [facility] Comment on above: Order Comment: Order Date: 12/19/24Order Info: [id number] - CBCDOrder Info: [id number] - SED Performed By: #### L 100.0100, L500.4059 #### [facility] [address] [place], [place], [address] Erythrocyte distribution wid th ratioOrdered By: Sajan Rowley on 12-20-2024 Erythrocyte distribution width (RBC) [Ratio] 14.3 % 11.6-14.6 [facility] Erythrocyte distribution wid th standard deviationOrdered By: Sajan Rowley on 12-20-2024 Erythrocyte distribution width (RBC) [Ratio] 48.7 fl High 35.1-43.9 [facility] Erythrocyte sedimentation ra teOrdered By: Sajan Rowley on 12-20-2024 ESR (Bld) [Velocity] 37 mm/h High 0-20 [facility] Glomerular filtration rate ( GFR) estimation/1.73 sq m using serum, plasma, or whole bOrdered By: Sajan Rowley on 12-20-2024 GFR/1.73 sq M.predicted among non-blacks MDRD (S/P/Bld) [Vol rate/Area] 62 mL/min/{1.73_m2} >60 [facility] Comment on above: mL/min/1.73m2 CKD-EP I Creatinine Equation (2020) Hematocrit Auto (Bld) [Volum e fraction]Ordered By: Sajan Rowley on 12-20-2024 Hematocrit (Bld) [Volume fraction] 37.5 % Low 40-54 [facility] Hemoglobin measurementOrdere d By: Sajan Rowley on 12-20-2024 Hemoglobin (Bld) [Mass/Vol] 12.2 g/dL Low 13.0-16.5 [facility] Immature granulocytes/100 WB C Auto (Bld)Ordered By: Sajan Rowley on 12-20-2024 Immature granulocytes/100 WBC (Bld) 0.100 % 0.0-0.9 [facility] Comment on above: IG% - Immature Granu locytes (promyelocytes, myelocytes and metamyelocytes) > 1% indicates that a LEFT SHIFT is Present. Ironon 12-20-2024 Iron [Mass/Vol] 75 ug/dL Normal 65-175 [facility] Comment on above: Order Comment: Order Date: 12/19/24Order Info: [id number] - CMPOrder Info: [id number] - CRPOrder Info: [id number] - TSHOrder Info: [id number] - FE Performed By: #### L 100.0100, L500.4050 #### [facility] [address] [place] [address], [address] Iron measurement (mass/mass) Ordered By: Sajan Rowley on 12-20-2024 Iron (Unsp spec) [Mass/Mass] 75 ug/dL 65-175 [facility] Ketones Test strip Ql (U)Ord ered By: Sajan Rowley on 12-20-2024 Ketones Ql (U) Negative Negative [facility] - Chemistry and C hemistry - challengeOrdered By: Sajan Rowley on 12-20-2024 AST [Catalytic activity/Vol] 24 U/L <38 [facility] MCV (mean corpuscular volume ) determinationOrdered By: Sajan Rowley on 12-20-2024 MCV (RBC) [Entitic vol] 94.5 fL High 80-94 [facility] Mean corpuscular hemoglobin (MCH) determinationOrdered By: Sajan Rowley on 12-20-2024 MCH (RBC) [Entitic mass] 30.7 pg 27.0-32.0 [facility] Mean corpuscular hemoglobin concentration (MCHC) determinationOrdered By: Sajan Rowley on 12-20-2024 MCHC (RBC) [Mass/Vol] 32.5 g/dL 32-36 [facility] Mean platelet volume determi nationOrdered By: Sajan Rowley on 12-20-2024 Platelet mean volume (Bld) [Entitic vol] 10.4 fL 6.2-12.0 [facility] Microscopic analysis of urin e for red blood cells (RBC)Ordered By: Sajan Rowley on 12-20-2024 Microscopic analysis of urine for red blood cells (RBC) 0 SEEN /hpf 0-5 [facility] Monocyte percentageOrdered B y: Sajan Rowley on 12-20-2024 Monocytes/100 WBC (Bld) 8.8 % 0-10 [facility] Mucus LM Ql (Urine sed)Order ed By: Sajan Rowley on 12-20-2024 Mucus Ql (Urine sed) 0 SEEN /hpf [facility] Neutrophil percentageOrdered By: Sajan Rowley on 12-20-2024 Neutrophils/100 WBC (Bld) 47.6 % 47-70 [facility] Nitrite Test strip Ql (U)Ord ered By: Sajan Rowley on 12-20-2024 Nitrite Ql (U) Negative Negative [facility] Nucleated red blood cell per centageOrdered By: Sajan Rowley on 12-20-2024 Nucleated RBC/100 WBC (Bld) [Ratio] 0 % 0-5 [facility] Platelet countOrdered By: Ulisses Rowley on 12-20-2024 Platelets (Bld) [#/Vol] 213 10*3/uL 150-450 [facility] Potassium measurement (mass/ volume)Ordered By: Sajan Rowley on 12-20-2024 Potassium (Unsp spec) [Mass/Vol] 3.9 mmol/L 3.3-5.1 [facility] Protein Test strip Ql (U)Ord ered By: Sajan Rowley on 12-20-2024 Protein Ql (U) 30 mg/dl High Negative [facility] RBC Auto (Bld) [#/Vol]Ordere d By: Sajan Rowley on 12-20-2024 RBC (Bld) [#/Vol] 3.97 10*6/uL Low 4.6-6.2 [facility] Serum creatinine measurement (mass/volume)Ordered By: Sajan Rowley on 12-20-2024 Creatinine [Mass/Vol] 1.17 mg/dL 0.70-1.20 [facility] Serum globulin measurementOr dered By: Sajan Rowley on 12-20-2024 Globulin (S) [Mass/Vol] 3.5 g/dL 2.2-4.2 [facility] Serum glucose measurement (m ass/volume)Ordered By: Sajan Rowley on 12-20-2024 Glucose [Mass/Vol] 63 mg/dL Low 70-99 [facility] Serum or plasma C reactive p rotein measurement (mass/volume)Ordered By: Sajan Rowley on 12-20-2024 CRP [Mass/Vol] mg/L 0.0-3.0 [facility] Serum or plasma alanine pate otransferase (ALT) measurementOrdered By: Sajan Rowley on 12-20-2024 ALT [Catalytic activity/Vol] 17 U/L <47 [facility] Serum or plasma albumin ta urement (mass/volume)Ordered By: Sajan Rowley on 12-20-2024 Albumin [Mass/Vol] 4.1 g/dL 3.4-4.8 [facility] Serum or plasma albumin/glob ulin mass ratioOrdered By: Sajan Rowley on 12-20-2024 Albumin/Globulin [Mass ratio] 1.2 {ratio} 0.9-2.4 [facility] Serum or plasma alkaline alvin sphatase measurementOrdered By: Sajan Rowley on 12-20-2024 ALP [Catalytic activity/Vol] 135 U/L High 40-129 [facility] Serum or plasma calcium ta urement (mass/volume)Ordered By: Sajan Rowley on 12-20-2024 Calcium [Mass/Vol] 10.2 mg/dL 7.6-11.0 [facility] Serum or plasma urea nitroge n measurement (mass/volume)Ordered By: Sajan Rowley on 12-20-2024 Urea nitrogen [Mass/Vol] 32 mg/dL High 4-19 [facility] Sodium levelOrdered By: Jeff Rowley on 12-20-2024 Sodium [Moles/Vol] 145 mmol/L 133-145 [facility] Squamous epithelial cells de tection in urine sediment by light microscopyOrdered By: Miguelgeorges Amrik on 12-20-2024 Epithelial cells.squamous LM Ql (Urine sed) 5-10 SEEN /hpf 0-5 [facility] TSH DL <= 0.005 mIU/L QnOrde red By: Miguelgeorges Amrik on 12-20-2024 TSH Qn 1.040 uIU/mL 0.300-4.200 [facility] Thyroid Stim Hormone (TSH)on 12-20-2024 TSH 1.040 uIU/mL Normal 0.300-4.200 [facility] Comment on above: Order Comment: Order Date: 12/19/24 Order Info: [id number] - CMP Order Info: [id number] - CRP Order Info: [id number] - TSH Order Info: [id number] - FE Performed By: #### L 101.9900, L503.6150, L400.0001, L501.9520, L500.4050, L501.6710, L100.0100 #### [facility] [address] [place], [address] Total proteinOrdered By: Daniel gamaliel Rowley on 12-20-2024 Protein [Mass/Vol] 7.5 g/dL 5.9-8.4 [facility] Urinalysis, Completeon 12-20 AMORPHOUS 1+ Normal [facility] Comment on above: Order Comment: Order Date: 12/19/24Order Info: [id number] - UACCOLLECTOR TO SPECIFY Performed By: #### L 100.0100, L500.4050 #### [facility] [address] [place], [address] BACTERIA 2+ /hpf Normal None Seen [facility] Comment on above: Order Comment: Order Date: 12/19/24Order Info: [id number] - UACCOLLECTOR TO SPECIFY Performed By: #### L 100.0100, L500.4050 #### [facility] [address] [place], [address] EPI,SQUAMOUS 5-10 SEEN Normal 0-5 [facility] Comment on above: Order Comment: Order Date: 12/19/24Order Info: [id number] - UACCOLLECTOR TO SPECIFY Performed By: #### L 100.0100, L500.4050 #### [facility] [address] [place], [address] WBC 0-5 SEEN Normal 0-5 [facility] Comment on above: Order Comment: Order Date: 12/19/24Order Info: [id number] - UACCOLLECTOR TO SPECIFY Performed By: #### L 100.0100, L500.4050 #### [facility] [address] [place], [address] Mucus Ql (Urine sed) 0 SEEN Normal [facility] Comment on above: Order Comment: Order Date: 12/19/24Order Info: [id number] - UACCOLLECTOR TO SPECIFY Performed By: #### L 100.0100, L500.4050 #### [facility] [address] [place], [address] RBC 0 SEEN Normal 0-5 [facility] Comment on above: Order Comment: Order Date: 12/19/24Order Info: [id number] - UACCOLLECTOR TO SPECIFY Performed By: #### L 100.0100, L500.4050 #### [facility] [address] [place], [address] Urine clarityOrdered By: Daniel Rowley on 12-20-2024 Clarity (U) Clear Clear [facility] Urine color determinationOrd ered By: Sajan Rowley on 12-20-2024 Color (U) Straw Yellow [facility] Urine glucose detectionOrder ed By: Sajan Rowley on 12-20-2024 Glucose Ql (U) Normal mg/dl Normal [facility] Urine leukocyte esterase det ection by dipstickOrdered By: Sajan Rowley on 12-20-2024 Leukocyte esterase Test strip Ql (U) Negative Negative [facility] Urine pHOrdered By: Aleksander Rowley on 12-20-2024 pH (U) 6.0 [pH] 5.0 - 8.0 [facility] Urine sediment bacteria coun t by microscopy (number/high power field)Ordered By: Sajan Rowley on 12-20-2024 Bacteria LM.HPF (Urine sed) [#/Area] 2 /[HPF] None Seen [facility] Urine specific gravity measu rementOrdered By: Sajan Rowley on 12-20-2024 Specific gravity (U) [Rel density] 1.015 1.002-1.030 [facility] Urine urobilinogen measureme ntOrdered By: Sajan Rowley on 12-20-2024 Urobilinogen Ql (U) Normal mg/dl Normal [facility] Vitamin B12on 12-20-2024 Cobalamin (Vitamin B12) [Mass/Vol] 619 pg/mL Normal 180-914 [facility] Comment on above: Order Comment: Order Date: 12/19/24 Order Info: [id number] - CMP Order Info: [id number] - CRP Order Info: [id number] - TSH Order Info: [id number] - FE Performed By: #### L 503.0106, L506.1001 #### [facility] [place], [address] Vitamin B12 ser/plasOrdered By: Sajan Rowley on 12-20-2024 Cobalamin (Vitamin B12) [Mass/Vol] 619 pg/mL 180-914 [facility] Vitamin D,25 Hydroxyon 12-20 Vitamin D 25-OH 50.6 ng/mL Normal 30-100 [facility] Comment on above: Order Comment: Order Date: 12/19/24 Order Info: [id number] - CMP Order Info: [id number] - CRP Order Info: [id number] - TSH Order Info: [id number] - FE Result Comment: Adelita min D Status Deficiency: <20 ng/mL (50nmol/L) Insufficiency: 20-30 ng/mL (50-75 nmol/L) Sufficiency: 30-100 ng/mL (75-250 nmol/L) Toxicity: >100 ng/mL (>250 nmol/L) Performed By: #### L 503.0106, L506.1001 #### [facility] [address] [place], [address] White blood cell (WBC) count Ordered By: Sajan Rowley on 12-20-2024 WBC (Bld) [#/Vol] 6.7 10*3/uL 4.4-11.0 [facility] White blood cell countOrdere d By: Sajan Rowley on 12-20-2024 White blood cell count 0-5 SEEN /hpf 0-5 [facility] Bilirubin directOrdered By: Suzi Dye on 11-01-2024 Bilirubin.direct [Mass/Vol] 0.18 mg/dL 0.00-0.30 [facility] Bilirubin, totalOrdered By: Suzi Dye on 11-01-2024 Bilirubin [Mass/Vol] 0.37 mg/dL 0.00-1.30 [facility] Calculated very low density lipoprotein (VLDL) cholesterol measurementOrdered By: Suzi Dye on 11-01-2024 Calculated very low density lipoprotein (VLDL) cholesterol measurement 27 mg/dL 5-40 [facility] Cardiology Visit Reporton Cardiology Visit Report [facility] [address] [place] [address] OFFICE VISIT Date of Service: 11/01/24 MR#: [id number] Acct: [id number] Name: GIA VIRAMONTES Rep #: [id number] : 1940 Provider: KAN wood Age/Sex: 84/M Location: [facility] [place] Status: Signed HPI HPI History of Present Illness Details: GIA VIRAMONTES, is a 84 M who presents to the office today [...] has a history of carotid artery disease. From a cardiac standpoint, the patient is doing well. He denies any palpitations, chest pain, pressure or heaviness. He denies SOB, Orthopnea, and PND. He does not have bleeding issues; no blood in urine, stool, or nosebleeds. He denies any decrease in energy level, myalgias, or claudication. He does not have edema, or sudden weight gain. He denies lightheadedness, dizziness, syncopal or near syncopal episodes, and headaches. Intake Vital Signs 10/14/24 13:04 11/01/24 07:19 11/01/24 08:13 Height 6 ft 6 ft Weight: 187 lb BMI 25.3 BP 154/70 H 114/72 Blood Pressure Location Lt brachial Lt brachial Position Sitting Sitting Respiration 18 Pulse 66 Pulse Source Monitor Pulse Oximetry (%) 95 Intake Visit Reasons: 1 Y FU Page Designer Required: No Is patient in pain?: No Allergies atorvastatin calcium (From Lipitor) Adverse Reaction (Verified 11/01/24 08:01) body aches ezetimibe (From Zetia) Adverse Reaction (Verified 11/01/24 08:01) body aches rosuvastatin calcium (From Crestor) Adverse Reaction (Verified 11/01/24 08:01) body aches Medications ???Medication ???Instructions ???Recorded ???Confirmed ???Type gemfibrozil 600 mg tablet 600 mg PO BID cholesterol 01/01/14 11/01/24 History allopurinol 300 mg tablet 300 mg PO DAILY GOUT 10/21/1510/09 History pantoprazole 40 mg tablet,delayed 40 mg PO DAILY reflux 10/21/15 History release amlodipine 10 mg tablet 10 mg PO DAILY BP 05/21/19 5 History aspirin 81 mg tablet,delayed 81 mg PO DAILY 06/03/19 11/01/24 H istory release (Adult Aspirin Regimen) cyanocobalamin (vitamin B-12) 3,000 mcg PO DAILY 06/16/20 History 1,000 mcg capsule levothyroxine 50 mcg tablet 50 mcg PO DAILY THYROID 01/08/21 0 11/01/24 History gabapentin 800 mg tablet 800 mg PO TID 06/25/21 11/01/24 Hi story lisinopril 40 mg tablet See Rx Instructions .Route 1 11/01/24 Rx .COMPLEX #90 tabs cholecalciferol (vitamin D3) 25 100 mcg PO DAILY 07/28/22 11/01/24 History mcg (1,000 unit) capsule glimepiride 4 mg tablet 4 mg PO DAILY 07/28/22 11/01/24 Hi story vitamins A,C,K-auab-zvxntc 4,296 1 cap PO BID 02/23/23 11/01/24 His tory mcg-226 mg-90 mg capsule (PreserVision AREDS) omega 2-ufq-wfu-fish oil 1,200 mg 2 cap PO DAILY 01/06/24 11/01/24 History (144 mg-216 mg) capsule (Fish Oil) duloxetine 60 mg capsule,delayed 60 mg PO QHS #90 caps 10/14/24 Rx release Ejection fraction %: 55 Have you fallen in the past year?: No PFSH Medical History (Reviewed 11/01/24 @ 08:28 by Suzi Dye [employer] OPERATOR, [employer] OPERATOR-C) Hyperlipemia Peripheral arterial disease Hypertension Abnormal nuclear stress test Type 2 diabetes mellitus Family history of cerebral aneurysm Polyneuropathy Dysrhythmia, cardiac Hypothyroidism Stenosis of right carotid artery Essential (primary) hypertension Atherosclerosis of coronary artery of [place] heart without angina pectoris Personal history of malignant melanoma Nonhealing surgical wound Open wound of left forearm Former smoker Melanoma in situ of left upper extremity Vision problems Vascular disease Neuropathy Kidney stones Hearing problem Gout Cataracts, bilateral Arthritis Screening for colon cancer Gangrenous cholecystitis Diabetes mellitus Surgical History (Reviewed 11/01/24 @ 08:01 by Suzi Dye [employer] M[employer]IS[employer] OPERATOR, [employer] M[employer]IS[employer] OPERATOR-C) History of cholecystectomy History of left heart catheterization (06/10/19) 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) Status post laparoscopic cholecystectomy Family History (Reviewed 11/01/24 @ 08:01 by Suzi Dye [employer] M[employer]IS[employer] OPERATOR, [employer] M[employer]ISER OPERATOR-C) Father Diabetes Hypertension High cholesterol Brother High cholesterol Mother Arthritis Heart disease Social History (Reviewed 11/01/24 @ 08:01 by Suzi Dye [employer] M[employer]ISER OPERATOR, [employer] M[employer]ISER OPERATOR-C) household members: spouse Smoking Status: Former smoker Tobacco: How many years used: 8 how long ago did patient quit smokin years ago second hand expos (more content not included)... Normal [facility] LDL calc ser/plasOrdered By: Suzi Dye on 11-01-2024 Cholesterol in LDL [Mass/Vol] 83 mg/dL [facility] Comment on above: Zgiaxbcpel=530-246 m g/dL & Higher Uuns=217 mg/dL or greater Laboratory - Chemistry and C hemistry - challengeOrdered By: Suzi Dye on 11-01-2024 AST [Catalytic activity/Vol] 33 U/L <38 [facility] Lipid Profileon 11-01-2024 CHOL:HDL 3.94 Normal [facility] Comment on above: Performed By: #### L 500.3400, L500.4100 #### [facility] [address] [place], [address] Cholesterol [Mass/Vol] 147 mg/dL Normal <=200 [facility] Comment on above: Result Comment: Chol esterol level, Desirable <200 mg/dL Borderline high cholesterol 200-239 mg/dL High cholesterol >=240 mg/dL Recommendations of the NCEP Adult Treatment Panel for the following risk-cutoff thresholds for the [place] population. Performed By: #### L 500.3400, L500.4100 #### [facility] [address] [place], [address] Cholesterol in HDL [Mass/Vol] 37 mg/dL Low [facility] Comment on above: Result Comment: Rebekah onal Cholesterol Education Program (NCEP) guidelines: <40 mg/dL: Low HDL-cholesterol (major risk factor for CHD) >= 60 mg/dL: High HDL-cholesterol (negative risk factor for CHD) HDL-cholesterol is affected by a number of factors, e.g. smoking, exercise, hormones, sex and age. Performed By: #### L 500.3400, L500.4100 #### [facility] [address] [place], [address] Cholesterol in LDL [Mass/Vol] 83 mg/dL Normal [facility] Comment on above: Result Comment: Bord goedcd=991-517 mg/dL Higher Snoa=679 mg/dL or greater Performed By: #### L 500.3400, L500.4100 #### [facility] [address] [place], [address] Cholesterol in VLDL [Mass/Vol] 27 mg/dL Normal 5-40 [facility] Comment on above: Performed By: #### L 500.3400, L500.4100 #### [facility] [address] [place], [address] Triglyceride [Mass/Vol] 136 mg/dL Normal [facility] Comment on above: Result Comment: The drugs N-Acetylcysteine and Metamizole may falsely depress this assay. Normal range: <150 mg/dL Borderline High: 150-199 mg/dL High: 200-499 mg/dL Very High: >500 mg/dL Performed By: #### L 500.3400, L500.4100 #### [facility] [address] [place], [address] Liver Profileon 11-01-2024 Albumin [Mass/Vol] 4.0 g/dL Normal 3.4-4.8 [facility] Comment on above: Performed By: #### L 500.3400, L500.4100 #### [facility] [address] [place], [address] ALK PHOS 149 U/L High 40-129 [facility] Comment on above: Performed By: #### L 500.3400, L500.4100 #### [facility] [address] [place], [address] ALT [Catalytic activity/Vol] 17 U/L Normal <=46 [facility] Comment on above: Performed By: #### L 500.3400, L500.4100 #### [facility] [address] [place], [address] AST [Catalytic activity/Vol] 33 U/L Normal <=37 [facility] Comment on above: Performed By: #### L 500.3400, L500.4100 #### [facility] [address] [place], [address] Bilirubin [Mass/Vol] 0.37 mg/dL Normal 0.00-1.30 [facility] Comment on above: Performed By: #### L 500.3400, L500.4100 #### [facility] [address] [place], [address] Bilirubin.direct [Mass/Vol] 0.18 mg/dL Normal 0.00-0.30 [facility] Comment on above: Performed By: #### L 500.3400, L500.4100 #### [facility] [address] [place], [address] Globulin (S) [Mass/Vol] 3.5 g/dL Normal 2.2-4.2 [facility] Comment on above: Performed By: #### L 500.3400, L500.4100 #### [facility] [address] [place], [address] T PROT 7.5 g/dL Normal 5.9-8.4 [facility] Comment on above: Performed By: #### L 500.3400, L500.4100 #### [facility] [address] [place], [address] Screening total cholesterol/ high density lipoprotein (HDL) cholesterol ratioOrdered By: Suzi Dye on 11-01-2024 Cholesterol.total/Choleste rol in HDL [Mass ratio] 3.94 {ratio} [facility] Serum globulin measurementOr dered By: Suzi Dye on 11-01-2024 Globulin (S) [Mass/Vol] 3.5 g/dL 2.2-4.2 [facility] Serum or plasma alanine pate otransferase (ALT) measurementOrdered By: Suzi Dye on 11-01-2024 ALT [Catalytic activity/Vol] 17 U/L <47 [facility] Serum or plasma albumin ta urement (mass/volume)Ordered By: Suzi Dye on 11-01-2024 Albumin [Mass/Vol] 4.0 g/dL 3.4-4.8 [facility] Serum or plasma alkaline alvin sphatase measurementOrdered By: Suzi Dye on 11-01-2024 ALP [Catalytic activity/Vol] 149 U/L High 40-129 [facility] Serum or plasma cholesterol in HDL measurement (mass/volume)Ordered By: Suzi Dye on 11-01-2024 Cholesterol in HDL [Mass/Vol] 37 mg/dL Low >40 [facility] Comment on above: National Cholesterol Education Program (NCEP) guidelines:<40 mg/dL: Low HDL-cholesterol (major risk factor for CHD)>= 60 mg/dL: High HDL-cholesterol (negative risk factor for CHD)HDL-cholesterol is affected by a number of factors, e.g. smoking, exercise, hormones, sex and age. Serum or plasma cholesterol measurement (mass/volume)Ordered By: Suzi Dye on 11-01-2024 Cholesterol [Mass/Vol] 147 mg/dL <201 [facility] Comment on above: Cholesterol level, D esirable <200 mg/dLBorderline high cholesterol 200-239 mg/dLHigh cholesterol >=240 mg/dLRecommendations of the NCEP Adult Treatment Panel for the following risk-cutoff thresholds for the [place] population. Total proteinOrdered By: Toy Dye on 11-01-2024 Protein [Mass/Vol] 7.5 g/dL 5.9-8.4 [facility] Triglycerides measurementOrd ered By: Suzi Dye on 11-01-2024 Triglyceride [Mass/Vol] 136 mg/dL <199 [facility] Comment on above: The drugs N-Acetylcy steine and Metamizole may falsely depress this assay. Normal range: <150 mg/dLBorderline High: 150-199 mg/dLHigh: 200-499 mg/dLVery High: >500 mg/dL Carotid Duplex Ultrasoundon 10-28-2024 Carotid Duplex Ultrasound [facility] [address] [place] [address] Carotid Duplex Ultrasound 10/28/24 0812 MR#: [id number] Acct: [id number] Name: GIA VIRAMONTES Rep #: [id number] : 1940 84 From: Michael East MD Attending Dr: Dr. Mane Solares MD Status: R EG CLI Ordering Dr: Mane Solares MD Date: 10/28/24 Location: [facility] Sex: M C Admitted: Reason For Study Reason For Study: Carotid bruit Rt. Velocities/BP Lt. Velocities/BP Prox CCA 64.5/10.7 cm/sec. Prox CCA 69.6/13.5 cm/sec. Mid CCA 189.4/27 cm/sec. Mid CCA 76.2/19 cm/sec. Dist CCA 175.5/17.1 cm/sec. Dist CCA 75.1/14.6 cm/sec. Prox ICA 174.1/29.2 cm/sec. Prox ICA 77.7/18.8 cm/sec. Mid ICA 141.2/18.2 cm/sec. Mid ICA 87.6/16.3 cm/sec. Dist ICA 74/17.6 cm/sec. Dist ICA 66.7/10.2 cm/sec. Rt. ICA/CCA = 1.09. Lt. ICA/CCA = 1.15. Prox ECA 176.3/9.4 cm/sec. Prox ECA 587.7/113.6 cm/sec. Rt. Vert. 57.5/10.2 cm/sec. Lt. Vert. 45.4/11.3 cm/sec. Right Extracranial There is heterogeneous, irregular atherosclerotic plaque noted in the right common carotid artery. There is heterogeneous, irregular atherosclerotic plaque noted in the right internal carotid artery. There is heterogeneous, irregular atherosclerotic plaque noted in the right external carotid artery. Antegrade flow is noted in the right vertebral artery. Left Extracranial There is heterogeneous, irregular atherosclerotic plaque noted in the left common carotid artery. There is heterogeneous, irregular atherosclerotic plaque noted in the left internal carotid artery. There is heterogeneous, irregular atherosclerotic plaque noted in the left external carotid artery. Antegrade flow is noted in the left vertebral artery. Procedure Carotid Duplex 71924. This is a Carotid Duplex examination using B-mode, color flow and specral Doppler. Exam performed in department. VL/Carotid Duplex Ultrasound Interpretation Summary Moderate (50-69%) stenosis right extracranial internal carotid. Mild (<50%) stenosis left extracranial internal carotid. Flow within the vertebral arteries is antegrade bilaterally. Elevated velocities in the left external carotid artery suggest severe stenosis. __ Ordering Physician: Mane Solares Referring Physician: aSjan Rowley MD Performed By: Windy Landry RVT 10/28/242017 Date Michael East MD CC: Dr. Sajan Rowley MD; Dr. Mane Solares MD Date Dictated: 10/28/24811 Date Transcribed: 10/28/242017 It Systems Engineer: Signed Normal [facility] Duplex ultrasound of carotid artery reportOrdered By: Michael East on 10-28-2024 Study report [facility] [address] [place] [address] Carotid Duplex Ultrasound 10/28/24811 MR#: [id number] Acct: [id number] Name: GIA VIRAMONTES Rep #:[id number] : 1940 84 From: Michael East MD Attending Dr: Dr. Mane Solares MD Status: REG CLI Ordering Dr: Mane Solares MD Date: 10/28/24 Location: [facility] Sex: M C Admitted: Reason For Study Reason For Study: Carotid bruit Rt. Velocities/BP Lt. Velocities/BP Prox CCA 64.5/10.7 cm/sec. Prox CCA 69.6/13.5 cm/sec. Mid CCA 189.4/27 cm/sec. Mid CCA 76.2/19 cm/sec. Dist CCA 175.5/17.1 cm/sec. Dist CCA 75.1/14.6 cm/sec. Prox ICA 174.1/29.2 cm/sec. Prox ICA 77.7/18.8 cm/sec. Mid ICA 141.2/18.2 cm/sec. Mid ICA 87.6/16.3 cm/sec. Dist ICA 74/17.6 cm/sec. Dist ICA 66.7/10.2 cm/sec. Rt. ICA/CCA = 1.09. Lt. ICA/CCA = 1.15. Prox ECA 176.3/9.4 cm/sec. Prox ECA 587.7/113.6 cm/sec. Rt. Vert. 57.5/10.2 cm/sec. Lt. Vert. 45.4/11.3 cm/sec. Right Extracranial There is heterogeneous, irregular atherosclerotic plaque noted in the right common carotid artery. There is heterogeneous, irregular atherosclerotic plaque noted in the right internal carotid artery. There is heterogeneous, irregular atherosclerotic plaque noted in the right external carotid artery. Antegrade flow is noted in the right vertebral artery. Left Extracranial There is heterogeneous, irregular atherosclerotic plaque noted in the left common carotid artery. There is heterogeneous, irregular atherosclerotic plaque noted in the left internal carotid artery. There is heterogeneous, irregular atherosclerotic plaque noted in the left external carotid artery. Antegrade flow is noted in the left vertebral artery. Procedure Carotid Duplex 61629. This is a Carotid Duplex examination using B-mode, color flow and specral Doppler. Exam performed in department. VL/Carotid Duplex Ultrasound Interpretation Summary Moderate (50-69%) stenosis right extracranial internal carotid. Mild (<50%) stenosis left extracranial internal carotid. Flow within the vertebral arteries is antegrade bilaterally. Elevated velocitiesin the left external carotid artery suggest severe stenosis. __ Ordering Physician: Mane Solares Referring Physician: Sajan Rowley MD Performed By: Windy Landry RVT 10/28/242017 Date _ Michael East MD CC: Dr. Sajan Rowley MD; Dr. Mane Solares MD ~ Date Dictated: 10/28/24811 Date Transcribed: 10/28/242017 It Systems Engineer: Signed [facility] Other Neurology Visit Reporton Neurology Visit Report [facility] [address] [place] [address], [address] [place] [address] OFFICE VISIT Date of Service: 10/14/24 MR#: [id number] Acct: [id number] Name: GIA VIRAMONTES Rep #: [id number] : 1940 Provider: Dr. Mane dias MD Age/Sex: 84/M Location: [facility] Status: Signed HPI HPI Details: Interim History: Gia returns for follow-up visit. He has a history of hypertension, diabetes mellitus, coronary artery disease status post CABG in 2013, hypothyroidism, melanoma status post excision around 2014, peripheral arterial disease, and renal calculi. He has been experiencing numbness in the feet since the . Over the years, this has progressed to the level just above the ankles. Since around 2019, he has also been experiencing neuropathic pain in the feet described as throbbing, burning and a pins sensation. His bilateral foot neuropathic pain occurs when he is at rest at night. He does not experience significant pain in the feet when he ambulates. He has had mild low back pain since the . He is not experiencing radicular pain in the lower extremities. He denied having weakness. He does have some gait imbalance but denied having dizziness or lightheadedness. He denied having numbness or pain in the upper extremities. He has chronic hearing loss. He had diplopia in the past which was corrected with extraocular eye muscle surgery. Gabapentin has been of some benefit for his neuropathic pain. Duloxetine 60 mg daily has been of some benefit for his neuropathic pain. Duloxetine has been of benefit for his anxiety. The intensity of his nighttime neuropathic pain varies. He denied having leg restlessness. A trial of ropinirole did not result in improvement of his lower extremity symptoms and ropinirole was discontinued. Nonhemodynamically significant carotid artery stenosis that is being monitored with carotid ultrasounds (last performed in February 2023). He has arterial disease of the lower extremities. He denied having gluteal or calf claudication. On his prior assessment in October 2022, right dorsalis pedis pulse was +2 and left posterior tibial and left dorsalis pedis pulses were absent. He has seen a nurse practitioner at his vascular surgeon's office (Dr. Ruelas) regarding his carotid disease. He has a family history of cerebral aneurysm. He had MRA in 2022 did not reveal evidence of aneurysm. His laboratory evaluation for polyneuropathy revealed an abnormal serum free light chains and elevated glucose. A subsequent serum protein electrophoresis, serum immunofixation and urine immunofixation were normal. He uses Biofreeze for his foot pain and this has been of some benefit. Physical Exam: Neuro: The patient is awake and alert and responds appropriately; speech is fluent; motor strength is 5/5 in the foot dorsiflexors bilaterally; gait is slightly unsteady Neck: Bilateral carotid bruits are auscultated Heart: Regular rate and rhythm On exam in June 2023, bilateral carotid bruits were auscultated. Supplemental Info Head MRI (01/14/2019): FINDINGS: There is asymmetry of the ventricles consistent with an anatomic variant. There are multiple white matter hyperintensities, distributed throughout the deep white matter tracts of the cerebral hemispheres, consistent with moderate chronic white matter ischemic changes. Normal bilateral basal ganglia.??? Normal thalami.??? There is no extra-axial fluid accumulation. Normal flow voids within the major intracranial circulation suggesting patency by spin echo criteria. Normal sella turcica, pituitary gland, infundibular stalk, optic chiasm and hypothalamus.??? Normal tectal plate and pineal gland. Normal midbrain, rubin and medulla.??? Normal cerebellum.??? Normal basal cisterns.??? Normal bilateral temporal bones.??? Normal bilateral internal auditory canals. There are bilateral ocular lens implants with otherwise normal intraorbital contents.??? Normal visualized paranasal sinuses.??? Right mastoid sinus disease.??? Normal visualized soft tissue structures.??? Normal visualized upper cervical spine. IMPRESSION: No evidence of metastatic disease on this limited noncontrast study. Moderate microangiopathic white matter disease. No evidence of acute infarct or hemorrhage. These images were reviewed on 10/13/2022. Moderate diffuse age-related cerebral atrophy is noted. Moderate bilateral periventricular and subcortical white matter chronic small vessel ischemic disease is noted. 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 Right mastoid sinus disease is noted. GIOVANA, C-reactive protein, rheumatoid factor, vitamin B6, ESR (10/21/2020): ESR 34 (high). EMG/nerve conduction studies of the lower extremities (10/28/2020): Electrodiagnostic findings: Peroneal motor response was obtained at the tibialis anterior.??? This demonstrates normal distal latency bilaterally with border (more content not included)... Normal [facility] Basic Metabolic Profile (BMP )on 08-22-2024 BUN/CRE 17.6 RATIO Normal 10-20 [facility] Comment on above: Order Comment: Order Date: 05/28/24 Order Info: 0667-1 - BMP Performed By: #### L 500.2500 #### [facility] [address] [place], [address] CA,Total 10.1 mg/dL Normal 8.5-10.1 [facility] Comment on above: Order Comment: Order Date: 05/28/24 Order Info: 0667- - BMP Performed By: #### L 500.2500 #### [facility] [address] [place], [address] Chloride [Moles/Vol] 108 mmol/L High 98-107 [facility] Comment on above: Order Comment: Order Date: 05/28/24 Order Info: 0667- - BMP Performed By: #### L 500.2500 #### [facility] [address] [place], [address] CO2 [Moles/Vol] 24.0 mmol/L Normal 21.0-32.0 [facility] Comment on above: Order Comment: Order Date: 05/28/24 Order Info: 0667- - BMP Performed By: #### L 500.2500 #### [facility] [address] [place], [address] Creatinine [Mass/Vol] 1.53 mg/dL High 0.70-1.30 [facility] Comment on above: Order Comment: Order Date: 05/28/24 Order Info: 06 - BMP Result Comment: The validity of the calculated GFR GFRAA in patients over 70 years has not been determined. Clinical correlation is essential. Performed By: #### L 500.2500 #### [facility] [address] [place], [address] EST GFR - AA 56 mL/min Low >60 [facility] Comment on above: Order Comment: Order Date: 05/28/24 Order Info: 666- - BMP Result Comment: Afri can Micronesian GFR Calc Performed By: #### L 500.2500 #### [facility] [address] [place], [address] GAP 7 Normal 5-15 [facility] Comment on above: Order Comment: Order Date: 05/28/24 Order Info: 06 - BMP Performed By: #### L 500.2500 #### [facility] [address] [place], [address] GFR/1.73 sq M.predicted among non-blacks MDRD (S/P/Bld) [Vol rate/Area] 46 mL/min/{1.73_m2} Low >60 [facility] Comment on above: Order Comment: Order Date: 05/28/24 Order Info: 06 - BMP Result Comment: Non- GFR Calc Performed By: #### L 500.2500 #### [facility] [address] [place], [place], [address] Glucose [Mass/Vol] 129 mg/dL High 74-106 [facility] Comment on above: Order Comment: Order Date: 05/28/24 Order Info: 06 - BMP Result Comment: Fast ing Glucose result greater than or equal to 126 mg/dL suggests DIABETES MELLITUS per A.D.A. criteria. Performed By: #### L 500.2500 #### [facility] [address] [place], [place], [address] Potassium [Moles/Vol] 3.5 mmol/L Normal 3.5-5.1 [facility] Comment on above: Order Comment: Order Date: 05/28/24 Order Info: 0667-1 - BMP Performed By: #### L 500.2500 #### [facility] [address] [place], [address] Sodium [Moles/Vol] 139 mmol/L Normal 136-145 [facility] Comment on above: Order Comment: Order Date: 05/28/24 Order Info: 0667-1 - BMP Performed By: #### L 500.2500 #### [facility] [address] [place], [place], [address] Urea nitrogen [Mass/Vol] 27 mg/dL High 7-18 [facility] Comment on above: Order Comment: Order Date: 05/28/24 Order Info: 0667-1 - BMP Performed By: #### L 500.2500 #### [facility] [address] [place], [place], [address] Blood urea nitrogen (BUN)/cr eatinine ratioOrdered By: Sajan Rowley on 08-22-2024 Urea nitrogen/Creatinine [Mass ratio] 17.6 mg/mg 10-20 [facility] Carbon dioxide measurementOr dered By: Sajan Rowley on 08-22-2024 CO2 [Moles/Vol] 24.0 mmol/L 21.0-32.0 [facility] Chloride measurementOrdered By: Sajan Rowley on 08-22-2024 Chloride [Moles/Vol] 108 mmol/L High 98-107 [facility] Estimated glomerular filtrat ion rate (GFR) AmericanOrdered By: Sajan Rowley on 08-22-2024 Estimated GFR (MDRD) Amer 56 mL/min Low >60 [facility] Comment on above: GFR Calc Glomerular filtration rate ( GFR) estimationOrdered By: Sajan Rowley on 08-22-2024 Estimated GFR (MDRD) Non-Af Amer 46 mL/min Low >60 [facility] Comment on above: Non- GFR Calc Glucose measurementOrdered B y: Sajan Rowley on 08-22-2024 Glucose [Mass/Vol] 129 mg/dL High 74-106 [facility] Comment on above: Fasting Glucose resu lt greater than or equal to 126 mg/dL suggests DIABETES MELLITUS per A.D.A. criteria. Potassium measurementOrdered By: Sajan Rowley on 08-22-2024 Potassium [Moles/Vol] 3.5 mmol/L 3.5-5.1 [facility] Serum anion gap measurementO rdered By: Sajan Rowley on 08-22-2024 Anion gap [Moles/Vol] 7 mmol/L 5-15 [facility] Serum or plasma calcium ta urement (mass/volume)Ordered By: Sajan Rowley on 08-22-2024 Calcium [Mass/Vol] 10.1 mg/dL 8.5-10.1 [facility] Serum or plasma creatinine m easurement (mass/volume)Ordered By: Sajan Rowley on 08-22-2024 Creatinine [Mass/Vol] 1.53 mg/dL High 0.70-1.30 [facility] Comment on above: The validity of the calculated GFR & GFRAA in patients over 70 years has not been determined. Clinical correlation is essential. Serum or plasma urea nitroge n measurement (mass/volume)Ordered By: Sajan Rowley on 08-22-2024 Urea nitrogen [Mass/Vol] 27 mg/dL High 7-18 [facility] Sodium levelOrdered By: Jeff Rowley on 08-22-2024 Sodium [Moles/Vol] 139 mmol/L 136-145 [facility] Thin prep Papanicolaou smear with manual screeningOrdered By: Teddy Anaya on 09-22-2023 Thin prep Papanicolaou smear with manual screening 111 mg/dL 74-106 [facility] Comment on above: MANAGEMENT OF PATIEN T CARE PER NURSING PROTOCOL Absolute lymphocyte countOrd ered By: Suzi Dye on 09-12-2023 Lymphocytes Auto (Unsp spec) [#/Vol] 2.47 10*3/uL 0.83-4.51 [facility] Automated lymphocyte count a s percentage of total leukocytesOrdered By: Suzi Dye on 09-12-2023 Lymphocytes/100 WBC Auto (Unsp spec) 27.4 % 19-41 [facility] Basophil percentageOrdered B y: Suzi Dye on 09-12-2023 Basophils/100 WBC (Bld) 0.6 % 0-1 [facility] Chloride [Moles/Vol] 111 mmol/L 98-107 [facility] Eosinophils/100 WBC (Bld) 2.0 % 0-5 [facility] Glucose [Mass/Vol] 117 mg/dL 74-106 [facility] Comment on above: Fasting Glucose resu lt from 100 to 125 mg/dL suggests IMPAIRED HOMEOSTASIS per A.D.A. criteria. Hemoglobin (Bld) [Mass/Vol] 12.5 g/dL 13.0-16.5 [facility] Monocytes/100 WBC (Bld) 9.3 % 0-10 [facility] Neutrophils (Bld) [#/Vol] 5.5 10*3/uL 2.0-7.7 [facility] Neutrophils/100 WBC (Bld) 60.4 % 47-70 [facility] Potassium [Moles/Vol] 4.8 mmol/L 3.5-5.1 [facility] Sodium [Moles/Vol] 145 mmol/L 136-145 [facility] WBC (Bld) [#/Vol] 9.0 10*3/uL 4.4-11.0 [facility] Determination of erythrocyte mean corpuscular volume (MCV)Ordered By: Suzi Dye on 09-12-2023 MCV (RBC) [Entitic vol] 93.6 fL 80-94 [facility] Erythrocyte distribution wid th ratioOrdered By: Suzi Dye on 09-12-2023 Erythrocyte distribution width (RBC) [Ratio] 14.7 % 11.6-14.6 [facility] Erythrocyte distribution wid th standard deviationOrdered By: Suzi Dye on 09-12-2023 Erythrocyte distribution width (RBC) [Entitic vol] 49.9 fL 35.1-43.9 [facility] Hematocrit Auto (Bld) [Volum e fraction]Ordered By: Suzi Dye on 09-12-2023 Hematocrit (Bld) [Volume fraction] 39.3 % 40-54 [facility] Immature granulocytes/100 WB C Auto (Bld)Ordered By: Suzi Dye on 09-12-2023 Immature granulocytes/100 WBC (Bld) 0.300 % 0.0-0.9 [facility] Comment on above: IG% - Immature Granu locytes (promyelocytes, myelocytes and metamyelocytes) > 1% indicates that a LEFT SHIFT is Present. Laboratory - Chemistry and C hemistry - challengeOrdered By: Suzi Dye on 09-12-2023 CO2 [Moles/Vol] 25.0 mmol/L 21.0-32.0 [facility] Urea nitrogen/Creatinine [Mass ratio] 27.1 mg/mg 10-20 [facility] Laboratory - Hematology and Cell countsOrdered By: Suzi Dye on 09-12-2023 MCH (RBC) [Entitic mass] 29.8 pg 27.0-32.0 [facility] MCHC (RBC) [Mass/Vol] 31.8 g/dL 32-36 [facility] Nucleated RBC/100 WBC (Bld) [Ratio] 0 % 0-5 [facility] Platelet mean volume (Bld) [Entitic vol] 10.1 fL 6.2-12.0 [facility] Platelets (Bld) [#/Vol] 244 10*3/uL 150-450 [facility] No Panel InformationOrdered By: Suzi Dye on 09-12-2023 Estimated GFR (MDRD) Amer 69 mL/min >60 [facility] Comment on above: GFR Calc Estimated GFR (MDRD) Non-Af Amer 57 mL/min >60 [facility] Comment on above: Non- GFR Calc RBC Auto (Bld) [#/Vol]Ordere d By: Suzi yDe on 09-12-2023 RBC (Bld) [#/Vol] 4.20 10*6/uL 4.6-6.2 [facility] Serum or plasma calcium ta urement (mass/volume)Ordered By: Suzi Dye on 09-12-2023 Calcium [Mass/Vol] 10.4 mg/dL 8.5-10.1 [facility] Serum or plasma creatinine m easurement (mass/volume)Ordered By: Suzi Dye on 09-12-2023 Creatinine [Mass/Vol] 1.29 mg/dL 0.70-1.30 [facility] Comment on above: The validity of the calculated GFR & GFRAA in patients over 70 years has not been determined. Clinical correlation is essential. Serum or plasma urea nitroge n measurement (mass/volume)Ordered By: Suzi Dye on 09-12-2023 Urea nitrogen [Mass/Vol] 35 mg/dL 7-18 [facility] Thin prep Papanicolaou smear with manual screeningOrdered By: Suzi Dye on 09-12-2023 Thin prep Papanicolaou smear with manual screening 9 5-15 [facility] Absolute lymphocyte countOrd ered By: Fidencio Rowley on 08-17-2023 Lymphocytes Auto (Unsp spec) [#/Vol] 1.28 10*3/uL 0.83-4.51 [facility] Automated lymphocyte count a s percentage of total leukocytesOrdered By: Fidencio Rowley on 08-17-2023 Lymphocytes/100 WBC Auto (Unsp spec) 22.6 % 19-41 [facility] Basophil percentageOrdered B y: Fidencio Rowley on 08-17-2023 Basophils/100 WBC (Bld) 0.7 % 0-1 [facility] Eosinophils/100 WBC (Bld) 3.2 % 0-5 [facility] Hemoglobin (Bld) [Mass/Vol] 13.4 g/dL 13.0-16.5 [facility] Monocytes/100 WBC (Bld) 11.7 % 0-10 [facility] Neutrophils (Bld) [#/Vol] 3.5 10*3/uL 2.0-7.7 [facility] Neutrophils/100 WBC (Bld) 61.6 % 47-70 [facility] WBC (Bld) [#/Vol] 5.7 10*3/uL 4.4-11.0 [facility] Bilirubin [Mass/Vol] 0.50 mg/dL 0.20-1.00 [facility] Comment on above: For patients on eltr ombopag therapy, use of Dimension Duncan TBIL is not recommended. Chloride [Moles/Vol] 110 mmol/L 98-107 [facility] Glucose [Mass/Vol] 133 mg/dL 74-106 [facility] Comment on above: Fasting Glucose resu lt greater than or equal to 126 mg/dL suggests DIABETES MELLITUS per A.D.A. criteria. Potassium [Moles/Vol] 3.5 mmol/L 3.5-5.1 [facility] Protein [Mass/Vol] 8.1 g/dL 6.4-8.2 [facility] Sodium [Moles/Vol] 145 mmol/L 136-145 [facility] Determination of erythrocyte mean corpuscular volume (MCV)Ordered By: Fidencio Rowley on 08-17-2023 MCV (RBC) [Entitic vol] 95.8 fL 80-94 [facility] Erythrocyte distribution wid th ratioOrdered By: Fidencio Rowley on 08-17-2023 Erythrocyte distribution width (RBC) [Ratio] 14.3 % 11.6-14.6 [facility] Erythrocyte distribution wid th standard deviationOrdered By: Fidencio Rowley on 08-17-2023 Erythrocyte distribution width (RBC) [Entitic vol] 50.1 fL 35.1-43.9 [facility] Hematocrit Auto (Bld) [Volum e fraction]Ordered By: Fidencio Rowley on 08-17-2023 Hematocrit (Bld) [Volume fraction] 43.2 % 40-54 [facility] Immature granulocytes/100 WB C Auto (Bld)Ordered By: Fidencio Rowley on 08-17-2023 Immature granulocytes/100 WBC (Bld) 0.200 % 0.0-0.9 [facility] Comment on above: IG% - Immature Granu locytes (promyelocytes, myelocytes and metamyelocytes) > 1% indicates that a LEFT SHIFT is Present. Laboratory - Chemistry and C hemistry - challengeOrdered By: Fidencio Rowley on 08-17-2023 Albumin/Globulin [Mass ratio] 0.8 {ratio} 0.9-2.4 [facility] ALP [Catalytic activity/Vol] 140 U/L 45-117 [facility] ALT [Catalytic activity/Vol] 25 U/L 16-61 [facility] CO2 [Moles/Vol] 26.0 mmol/L 21.0-32.0 [facility] Globulin (S) [Mass/Vol] 4.4 g/dL 2.2-4.2 [facility] Urea nitrogen/Creatinine [Mass ratio] 13.0 mg/mg 10-20 [facility] Laboratory - Hematology and Cell countsOrdered By: Fidencio Rowley on 08-17-2023 MCH (RBC) [Entitic mass] 29.7 pg 27.0-32.0 [facility] MCHC (RBC) [Mass/Vol] 31.0 g/dL 32-36 [facility] Nucleated RBC/100 WBC (Bld) [Ratio] 0 % 0-5 [facility] Platelet mean volume (Bld) [Entitic vol] 10.1 fL 6.2-12.0 [facility] Platelets (Bld) [#/Vol] 226 10*3/uL 150-450 [facility] No Panel InformationOrdered By: Fidencio Rowley on 08-17-2023 Estimated GFR (MDRD) Amer 67 mL/min >60 [facility] Comment on above: GFR Calc Estimated GFR (MDRD) Non-Af Amer 56 mL/min >60 [facility] Comment on above: Non- GFR Calc RBC Auto (Bld) [#/Vol]Ordere d By: Fidencio Rowley on 08-17-2023 RBC (Bld) [#/Vol] 4.51 10*6/uL 4.6-6.2 [facility] Serum or plasma calcium ta urement (mass/volume)Ordered By: Fidencio Rowley on 08-17-2023 Calcium [Mass/Vol] 9.7 mg/dL 8.5-10.1 [facility] Serum or plasma creatinine m easurement (mass/volume)Ordered By: Fidencio Rowley on 08-17-2023 Creatinine [Mass/Vol] 1.31 mg/dL 0.70-1.30 [facility] Comment on above: The validity of the calculated GFR & GFRAA in patients over 70 years has not been determined. Clinical correlation is essential. Serum or plasma thyroid stim ulating hormone (TSH) measurement (units/volume)Ordered By: Fidencio Rowley on 08-17-2023 TSH Qn 0.39 uIU/mL 0.358-3.74 [facility] Serum or plasma transthyreti n measurement (mass/volume)Ordered By: Fidencio Rowley on 08-17-2023 Prealbumin [Mass/Vol] 21.2 mg/dL 20.0-40.0 [facility] Serum or plasma urea nitroge n measurement (mass/volume)Ordered By: Fidencio Rowley on 08-17-2023 Urea nitrogen [Mass/Vol] 17 mg/dL 7-18 [facility] Serum or plasma uric acid me asurement (mass/volume)Ordered By: Fidencio Rowley on 08-17-2023 Urate [Mass/Vol] 3.8 mg/dL 3.5-7.2 [facility] Comment on above: The drugs N-Acetylcy steine and Metamizole may falsely depress this assay. Thin prep Papanicolaou smear with manual screeningOrdered By: Fidencio Rowley on 08-17-2023 Thin prep Papanicolaou smear with manual screening 3.7 g/dL 3.2-5.0 [facility] Thin prep Papanicolaou smear with manual screening 23 U/L 15-37 [facility] Thin prep Papanicolaou smear with manual screening 9 5-15 [facility] Albumin Elph [Mass/Vol]Order ed By: Mane Solares on 02-23-2023 Albumin [Mass/Vol] 3.9 g/dL 2.9-4.4 [facility] Basophil percentageOrdered B y: Fidencio Rowley on 02-23-2023 Bilirubin [Mass/Vol] 0.50 mg/dL 0.20-1.00 [facility] Comment on above: For patients on eltr ombopag therapy, use of Dimension Duncan TBIL is not recommended. Chloride [Moles/Vol] 110 mmol/L 98-107 [facility] Cholesterol [Mass/Vol] 205 mg/dL <200 [facility] Comment on above: <200 mg/dL Desirable 200-240 mg/dL Borderline >240 mg/dL High Risk Glucose [Mass/Vol] 184 mg/dL 74-106 [facility] Comment on above: Fasting Glucose resu lt greater than or equal to 126 mg/dL suggests DIABETES MELLITUS per A.D.A. criteria. Potassium [Moles/Vol] 4.0 mmol/L 3.5-5.1 [facility] Protein [Mass/Vol] 7.7 g/dL 6.4-8.2 [facility] Sodium [Moles/Vol] 143 mmol/L 136-145 [facility] Triglyceride [Mass/Vol] 149 mg/dL <199 [facility] Comment on above: The drugs N-Acetylcy steine and Metamizole may falsely depress this assay.Serum Triglycerides Reference Interval Normal <150 mg/dL Borderline high 150 - 199 mg/dL High 200 - 499 mg/dL Very High > or = 500 mg/dL Basophil percentageOrdered B y: Mane Solares on 02-23-2023 Basophil percentage Comment . [facility] Comment on above: No monoclonality det ected.Performed at: [facility] [place] [id number] Director: Norbert Miner PhD, Phone: [phone] Interpretation of serum or p lasma protein pattern by immunofixation (narrative resultOrdered By: Mane Solares on 02-23-2023 Protein Fractions Immunofixation Leroy [Interp] See comment [facility] Comment on above: Result: Not Observed Laboratory - Chemistry and C hemistry - challengeOrdered By: Fidencio Rowley on 02-23-2023 ALP [Catalytic activity/Vol] 113 U/L 45-117 [facility] ALT [Catalytic activity/Vol] 42 U/L 16-61 [facility] CO2 [Moles/Vol] 26.0 mmol/L 21.0-32.0 [facility] Globulin (S) [Mass/Vol] 3.8 g/dL 2.2-4.2 [facility] Urea nitrogen/Creatinine [Mass ratio] 15.6 mg/mg 10-20 [facility] No Panel InformationOrdered By: Fidencio Rowley on 02-23-2023 Estimated GFR (MDRD) Amer 83 mL/min >60 [facility] Comment on above: GFR Calc Estimated GFR (MDRD) Non-Af Amer 69 mL/min >60 [facility] Comment on above: Non- GFR Calc No Panel InformationOrdered By: Mane Solares on 02-23-2023 Addendum Document Comment . [facility] Comment on above: Protein electrophore sis scan will follow via computer,mail, or chemical test engineer delivery. Serum [id number] measu rement by electrophoresisOrdered By: Mane Solares on 02-23-2023 Alpha 1 globulin Elph [Mass/Vol] 0.3 g/dL 0.0-0.4 [facility] Alpha 1 globulin Elph [Mass/Vol] 1.0 g/dL 0.4-1.0 [facility] Serum or plasma IgA measurem ent (mass/volume)Ordered By: Mane Solares on 02-23-2023 IgA [Mass/Vol] 273 mg/dL 61-437 [facility] Serum or plasma IgG measurem ent (mass/volume)Ordered By: Mane Solares on 02-23-2023 IgG [Mass/Vol] 741 mg/dL 603-1613 [facility] Serum or plasma IgM measurem ent (mass/volume)Ordered By: Mane Solares on 02-23-2023 IgM [Mass/Vol] 32 mg/dL 15-143 [facility] Serum or plasma albumin ta urement (mass/volume)Ordered By: Fidencio Rowley on 02-23-2023 Albumin [Mass/Vol] 3.9 g/dL 3.2-5.0 [facility] Serum or plasma albumin/glob ulin mass ratioOrdered By: Fidencio Rowley on 02-23-2023 Albumin/Globulin [Mass ratio] 1.0 {ratio} 0.9-2.4 [facility] Serum or plasma beta globuli n measurement by electrophoresis (mass/volume)Ordered By: Mane Solares on 02-23-2023 Beta globulin Elph [Mass/Vol] 1.2 g/dL 0.7-1.3 [facility] Serum or plasma calcium ta urement (mass/volume)Ordered By: Fidencio Rowley on 02-23-2023 Calcium [Mass/Vol] 9.4 mg/dL 8.5-10.1 [facility] Serum or plasma cholesterol in HDL measurement (mass/volume)Ordered By: Fidencio Rowley on 02-23-2023 Cholesterol in HDL [Mass/Vol] 57 mg/dL >40 [facility] Comment on above: The drugs N-Acetylcy steine and Metamizole may falsely depress this assay. Reference Range HDL <40 mg/dL Low HDL Cholesterol HDL >or= 60 mg/dL High HDL Cholesterol Serum or plasma cholesterol in VLDL measurement (mass/volume)Ordered By: Fidencio Rowley on 02-23-2023 Cholesterol in VLDL [Mass/Vol] 30 mg/dL 5-40 [facility] Serum or plasma creatinine m easurement (mass/volume)Ordered By: Fidencio Rowley on 02-23-2023 Creatinine [Mass/Vol] 1.09 mg/dL 0.70-1.30 [facility] Comment on above: The validity of the calculated GFR & GFRAA in patients over 70 years has not been determined. Clinical correlation is essential. Serum or plasma gamma globul in measurement by electrophoresis (mass/volume)Ordered By: Mane Solares on 02-23-2023 Gamma globulin Elph [Mass/Vol] 0.6 g/dL 0.4-1.8 [facility] Serum or plasma immunoelectr ophoresis interpretation (nominal result)Ordered By: Mane Solares on 02-23-2023 Interpretation IEP [Interp] Comment . [facility] Comment on above: No monoclonality det ected. Serum or plasma low density lipoprotein (LDL) cholesterol measurement (mass/volume)Ordered By: Fidencio Rowley on 02-23-2023 Cholesterol in LDL [Mass/Vol] 118 mg/dL 0-130 [facility] Serum or plasma urea nitroge n measurement (mass/volume)Ordered By: Fidencio Rowley on 02-23-2023 Urea nitrogen [Mass/Vol] 17 mg/dL 7-18 [facility] Thin prep Papanicolaou smear with manual screeningOrdered By: Fidencio Rowley on 02-23-2023 Thin prep Papanicolaou smear with manual screening 34 U/L 15-37 [facility] Thin prep Papanicolaou smear with manual screening 7 5-15 [facility] Thin prep Papanicolaou smear with manual screeningOrdered By: Mane Solares on 02-23-2023 Thin prep Papanicolaou smear with manual screening 1.3 0.7-1.7 [facility] Total protein bloodOrdered B y: Mane Solares on 02-23-2023 Protein [Mass/Vol] 7.0 g/dL 6.0-8.5 [facility] Absolute lymphocyte countOrd ered By: Dr. Rowley on 10-17-2022 Lymphocytes Auto (Unsp spec) [#/Vol] 1.46 10*3/uL 0.83-4.51 [facility] Basophil percentageOrdered B y: Dr. Solares on 10-17-2022 Bilirubin [Mass/Vol] 0.70 mg/dL 0.20-1.00 [facility] Comment on above: For patients on eltr ombopag therapy, use of Dimension Duncan TBIL is not recommended. Chloride [Moles/Vol] 109 mmol/L 98-107 [facility] Cholesterol [Mass/Vol] 241 mg/dL <200 [facility] Comment on above: <200 mg/dL Desirable 200-240 mg/dL Borderline >240 mg/dL High Risk Glucose [Mass/Vol] 240 mg/dL 74-106 [facility] Comment on above: Glucose result great er than or equal to 200 mg/dLsuggests DIABETES MELLITUS per A.D.A. criteria. Potassium [Moles/Vol] 3.7 mmol/L 3.5-5.1 [facility] Protein [Mass/Vol] 8.2 g/dL 6.4-8.2 [facility] Sodium [Moles/Vol] 141 mmol/L 136-145 [facility] Triglyceride [Mass/Vol] 162 mg/dL <199 [facility] Comment on above: The drugs N-Acetylcy steine and Metamizole may falsely depress this assay.Serum Triglycerides Reference Interval Normal <150 mg/dL Borderline high 150 - 199 mg/dL High 200 - 499 mg/dL Very High > or = 500 mg/dL Basophil percentageOrdered B y: Dr. Rowley on 10-17-2022 Basophils/100 WBC (Bld) 0.5 % 0-1 [facility] Eosinophils/100 WBC (Bld) 7.0 % 0-5 [facility] Neutrophils (Bld) [#/Vol] 3.1 10*3/uL 2.0-7.7 [facility] Neutrophils/100 WBC (Bld) 55.9 % 47-70 [facility] WBC (Bld) [#/Vol] 5.6 10*3/uL 4.4-11.0 [facility] Blood erythrocytes count (nu mber/volume)Ordered By: Dr. Rowley on 10-17-2022 RBC (Bld) [#/Vol] 4.34 10*6/uL 4.6-6.2 [facility] Blood hemoglobin measurement (mass/volume)Ordered By: Dr. Rowley on 10-17-2022 Hemoglobin (Bld) [Mass/Vol] 13.6 g/dL 13.0-16.5 [facility] Blood lymphocytes/100 leukoc ytesOrdered By: Dr. Rowley on 10-17-2022 Lymphocytes/100 WBC (Bld) 26.2 % 19-41 [facility] Blood monocytes/100 leukocyt esOrdered By: Dr. Rowley on 10-17-2022 Monocytes/100 WBC (Bld) 10.2 % 0-10 [facility] Blood platelet mean volumeOr dered By: Dr. Rowley on 10-17-2022 Platelet mean volume (Bld) [Entitic vol] 10.5 fL 6.2-12.0 [facility] Determination of erythrocyte mean corpuscular volume (MCV)Ordered By: Dr. Rowley on 10-17-2022 MCV (RBC) [Entitic vol] 96.5 fL 80-94 [facility] Erythrocyte sedimentation ra teOrdered By: Dr. Rowley on 10-17-2022 ESR (Bld) [Velocity] 58 mm/h 0-20 [facility] Hematocrit Auto (Bld) [Volum e fraction]Ordered By: Dr. Rowley on 10-17-2022 Hematocrit (Bld) [Volume fraction] 41.9 % 40-54 [facility] Laboratory - Chemistry and C hemistry - challengeOrdered By: Dr. Solares on 10-17-2022 ALP [Catalytic activity/Vol] 135 U/L 45-117 [facility] ALT [Catalytic activity/Vol] 60 U/L 16-61 [facility] CO2 [Moles/Vol] 27.0 mmol/L 21.0-32.0 [facility] Cobalamin (Vitamin B12) [Mass/Vol] 636 pg/mL 211-911 [facility] Globulin (S) [Mass/Vol] 4.4 g/dL 2.2-4.2 [facility] Urea nitrogen/Creatinine [Mass ratio] 17.4 mg/mg 10-20 [facility] Laboratory - Hematology and Cell countsOrdered By: Dr. Rowley on 10-17-2022 Erythrocyte distribution width (RBC) [Entitic vol] 49.1 fL 35.1-43.9 [facility] Erythrocyte distribution width (RBC) [Ratio] 13.9 % 11.6-14.6 [facility] Immature granulocytes/100 WBC (Bld) 0.200 % 0.0-0.9 [facility] Comment on above: IG% - Immature Granu locytes (promyelocytes, myelocytes and metamyelocytes) > 1% indicates that a LEFT SHIFT is Present. MCH (RBC) [Entitic mass] 31.3 pg 27.0-32.0 [facility] Nucleated RBC/100 WBC (Bld) [Ratio] 0 % 0-5 [facility] MCHC Auto (RBC) [Mass/Vol]Or dered By: Dr. Rowley on 10-17-2022 MCHC (RBC) [Mass/Vol] 32.5 g/dL 32-36 [facility] No Panel InformationOrdered By: Dr. Solares on 10-17-2022 Estimated GFR (MDRD) Amer 78 mL/min >60 [facility] Comment on above: GFR Calc Estimated GFR (MDRD) Non-Af Amer 65 mL/min >60 [facility] Comment on above: Non- GFR Calc Free Lambda Light Chains, Quant 23.7 mg/L 5.7-26.3 [facility] Thyroid Stimulating Hormone (TSH) 1.14 uIU/mL 0.358-3.74 [facility] Whole Blood Vitamin B1 Level 137.8 nmol/L 66.5-200.0 [facility] Comment on above: Performed at: [address] [id number] Director: Norbert Miner PhD, Phone: [phone] at: [facility] [id number] Director: Kerri Marlow MD, Phone: [phone] Platelets bldOrdered By: Dr. Rowley on 10-17-2022 Platelets (Bld) [#/Vol] 194 10*3/uL 150-450 [facility] Serum immunoglobulin kappa l ight chains/immunoglobulin lambda light chains mass ratioOrdered By: Dr. Solares on 10-17-2022 Immunoglobulin light chains.kappa/Immunoglobuli n light chains.lambda (S) [Mass ratio] 1.33 0.26-1.65 [facility] Serum or plasma albumin ta urement (mass/volume)Ordered By: Dr. Solares on 10-17-2022 Albumin [Mass/Vol] 3.8 g/dL 3.2-5.0 [facility] Serum or plasma albumin/glob ulin mass ratioOrdered By: Dr. Solares on 10-17-2022 Albumin/Globulin [Mass ratio] 0.9 {ratio} 0.9-2.4 [facility] Serum or plasma calcium ta urement (mass/volume)Ordered By: Dr. Solares on 10-17-2022 Calcium [Mass/Vol] 9.8 mg/dL 8.5-10.1 [facility] Serum or plasma cholesterol in HDL measurement (mass/volume)Ordered By: Dr. Solares on 10-17-2022 Cholesterol in HDL [Mass/Vol] 46 mg/dL >40 [facility] Comment on above: The drugs N-Acetylcy steine and Metamizole may falsely depress this assay. Reference Range HDL <40 mg/dL Low HDL Cholesterol HDL >or= 60 mg/dL High HDL Cholesterol Serum or plasma cholesterol in VLDL measurement (mass/volume)Ordered By: Dr. Solares on 10-17-2022 Cholesterol in VLDL [Mass/Vol] 32 mg/dL 5-40 [facility] Serum or plasma creatinine m easurement (mass/volume)Ordered By: Dr. Solares on 10-17-2022 Creatinine [Mass/Vol] 1.15 mg/dL 0.70-1.30 [facility] Comment on above: The validity of the calculated GFR & GFRAA in patients over 70 years has not been determined. Clinical correlation is essential. Serum or plasma folate measu rement (mass/volume)Ordered By: Dr. Solares on 10-17-2022 Folate [Mass/Vol] 4.40 ng/mL 3.1-55.4 [facility] Serum or plasma immunoglobul in kappa light chains measurement (mass/volume)Ordered By: Dr. Solares on 10-17-2022 Immunoglobulin light chains.kappa [Mass/Vol] 31.5 mg/L 3.3-19.4 [facility] Serum or plasma low density lipoprotein (LDL) cholesterol measurement (mass/volume)Ordered By: Dr. Solares on 10-17-2022 Cholesterol in LDL [Mass/Vol] 163 mg/dL 0-130 [facility] Serum or plasma urea nitroge n measurement (mass/volume)Ordered By: Dr. Solares on 10-17-2022 Urea nitrogen [Mass/Vol] 20 mg/dL 7-18 [facility] Thin prep Papanicolaou smear with manual screeningOrdered By: Dr. Solares on 10-17-2022 Thin prep Papanicolaou smear with manual screening 68 U/L 15-37 [facility] Thin prep Papanicolaou smear with manual screening 5 5-15 [facility] Whole blood hemoglobin A1c/t otal hemoglobin ratio (mass fraction)Ordered By: Dr. Solares on 10-17-2022 HbA1c (Bld) [Mass fraction] 8.4 % 3.8-5.6 [facility] Comment on above: Normal < 5.7 % Predi abetic 5.7 - 6.4 % Diabetic >or= 6.5 % Please note range changes. Basophil percentageOrdered B y: Dr. Rowley on 06-03-2022 Bilirubin [Mass/Vol] 0.70 mg/dL 0.20-1.00 [facility] Comment on above: For patients on eltr ombopag therapy, use of Dimension Duncan TBIL is not recommended. Chloride [Moles/Vol] 108 mmol/L 98-107 [facility] Cholesterol [Mass/Vol] 209 mg/dL <200 [facility] Comment on above: <200 mg/dL Desirable 200-240 mg/dL Borderline >240 mg/dL High Risk Glucose [Mass/Vol] 230 mg/dL 74-106 [facility] Comment on above: Glucose result great er than or equal to 200 mg/dLsuggests DIABETES MELLITUS per A.D.A. criteria. Potassium [Moles/Vol] 4.2 mmol/L 3.5-5.1 [facility] Protein [Mass/Vol] 7.6 g/dL 6.4-8.2 [facility] Sodium [Moles/Vol] 142 mmol/L 136-145 [facility] Triglyceride [Mass/Vol] 155 mg/dL <199 [facility] Comment on above: The drugs N-Acetylcy steine and Metamizole may falsely depress this assay.Serum Triglycerides Reference Interval Normal <150 mg/dL Borderline high 150 - 199 mg/dL High 200 - 499 mg/dL Very High > or = 500 mg/dL Laboratory - Chemistry and C hemistry - challengeOrdered By: Dr. Rowley on 06-03-2022 ALP [Catalytic activity/Vol] 118 U/L 45-117 [facility] ALT [Catalytic activity/Vol] 53 U/L 16-61 [facility] CO2 [Moles/Vol] 27.0 mmol/L 21.0-32.0 [facility] Cobalamin (Vitamin B12) [Mass/Vol] 586 pg/mL 211-911 [facility] Globulin (S) [Mass/Vol] 3.8 g/dL 2.2-4.2 [facility] Urea nitrogen/Creatinine [Mass ratio] 17.0 mg/mg 10-20 [facility] No Panel InformationOrdered By: Dr. Rowley on 06-03-2022 Estimated GFR (MDRD) Amer 86 mL/min >60 [facility] Comment on above: GFR Calc Estimated GFR (MDRD) Non-Af Amer 71 mL/min >60 [facility] Comment on above: Non- GFR Calc Serum or plasma albumin ta urement (mass/volume)Ordered By: Dr. Rowley on 06-03-2022 Albumin [Mass/Vol] 3.8 g/dL 3.2-5.0 [facility] Serum or plasma albumin/glob ulin mass ratioOrdered By: Dr. Rowley on 06-03-2022 Albumin/Globulin [Mass ratio] 1.0 {ratio} 0.9-2.4 [facility] Serum or plasma calcium ta urement (mass/volume)Ordered By: Dr. Rowley on 06-03-2022 Calcium [Mass/Vol] 9.2 mg/dL 8.5-10.1 [facility] Serum or plasma cholesterol in HDL measurement (mass/volume)Ordered By: Dr. Rowley on 06-03-2022 Cholesterol in HDL [Mass/Vol] 43 mg/dL >40 [facility] Comment on above: The drugs N-Acetylcy steine and Metamizole may falsely depress this assay. Reference Range HDL <40 mg/dL Low HDL Cholesterol HDL >or= 60 mg/dL High HDL Cholesterol Serum or plasma cholesterol in VLDL measurement (mass/volume)Ordered By: Dr. Rowley on 06-03-2022 Cholesterol in VLDL [Mass/Vol] 31 mg/dL 5-40 [facility] Serum or plasma creatinine m easurement (mass/volume)Ordered By: Dr. Rowley on 06-03-2022 Creatinine [Mass/Vol] 1.06 mg/dL 0.70-1.30 [facility] Comment on above: The validity of the calculated GFR & GFRAA in patients over 70 years has not been determined. Clinical correlation is essential. Serum or plasma low density lipoprotein (LDL) cholesterol measurement (mass/volume)Ordered By: Dr. Rowley on 06-03-2022 Cholesterol in LDL [Mass/Vol] 135 mg/dL 0-130 [facility] Serum or plasma urea nitroge n measurement (mass/volume)Ordered By: Dr. Rowley on 06-03-2022 Urea nitrogen [Mass/Vol] 18 mg/dL 7-18 [facility] Thin prep Papanicolaou smear with manual screeningOrdered By: Dr. Rowley on 06-03-2022 Thin prep Papanicolaou smear with manual screening 70 U/L 15-37 [facility] Thin prep Papanicolaou smear with manual screening 7 5-15 [facility] ECG 12 [place] 09-03-2021 Atrial Rate [facility] P [place] [facility] P-R Interval [facility] Q-T Interval [facility] Q-T Interval (corrected) [facility] QRS Duration [facility] QTC Calculation (Bezet) [facility] [place] [facility] T [place] [facility] Ventricular Rate [facility] Glucose (Bld) [Mass/Vol]on 0 09-03-2021 Glucose [Mass/Vol] 249 mg/dL [facility] Hematocrit Auto (Bld) [Volum e fraction]on 09-03-2021 Hematocrit (Bld) [Volume fraction] 39.0 % Abnormal 41.0 - 53.0 % [facility] Hemoglobin Calc (Bld) [Mass/ Vol]on 09-03-2021 Hemoglobin (Bld) [Mass/Vol] 13.3 g/dL Abnormal 13.5 - 17.5 g/dL [facility] No Panel Informationon 09-03 Interpretation and review of laboratory results Abnormal [facility] Potassium (Bld) [Moles/Vol]o n 09-03-2021 Potassium [Moles/Vol] 4.4 mmol/L 3.5 - 5.1 mmol/L [facility] Vital Signs Date Time Vital Sign Value Performing Clinician Faci lity 02-18-2025 09:58-0400 Body height 182.[address] Sajan Rowley MD Work Phone: [facility] 02-18-2025 09:58-0400 Body mass index (BMI) [Ratio] 24.7 kg/m2 Dr. Sajan Rowley MD Work Phone: [facility] 02-18-2025 09:58-0400 Body temperature 97.5 [degF] Dr. Sajan Rowley MD Work Phone: [facility] 02-18-2025 09:58-0400 Body weight 82.[address] Sajan Rowley MD Work Phone: [facility] 02-18-2025 09:58-0400 Diastolic blood pressure 65 mm[Hg] Dr. Sajan Rowley MD Work Phone: [facility] 02-18-2025 09:58-0400 Heart rate 65 /min Dr. Sajan Rowley MD Work Phone: [facility] 02-18-2025 09:58-0400 Respiratory rate 15 /min Dr. Sajan Rowley MD Work Phone: [facility] 02-18-2025 09:58-0400 SaO2% (BldA) [Mass fraction] 96 % Dr. Sajan Rowley MD Work Phone: [facility] 02-18-2025 09:58-0400 Systolic blood pressure 125 mm[Hg] Dr. Sajan Rowley MD Work Phone: 3(557)457-381033 [place] [address] 02-05-2025 13:15-0400 Body temperature 98.4 [degF] Dr. Sajan Rowley MD Work Phone: 6(372)999-192633 [place] [address] 02-05-2025 13:15-0400 Body weight 75.[address] Sajan Rowley MD Work Phone: 3(005)591-046833 [place] [address] 02-05-2025 13:15-0400 Diastolic blood pressure 61 mm[Hg] Dr. Sajan Rowley MD Work Phone: 7(580)637-341233 [place] [address] 02-05-2025 13:15-0400 Heart rate 62 /min Dr. Sajan Rowley MD Work Phone: 6(080)136-284833 [place] [address] 02-05-2025 13:15-0400 Respiratory rate 16 /min Dr. Sajan Rowley MD Work Phone: 3(324)587-554833 [place] [address] 02-05-2025 13:15-0400 SaO2% (BldA) [Mass fraction] 94 % Dr. Sajan Rowley MD Work Phone: 7(520)982-528533 [place] [address] 02-05-2025 13:15-0400 Systolic blood pressure 106 mm[Hg] Dr. Sajan Rowley MD Work Phone: 6(091)812-634033 [place] [address] 11-01-2024 08:13-0400 Diastolic blood pressure 72 mm[Hg] Dr. Sajan Rowley MD Work Phone: 0(688)491-245533 [place] [address] 11-01-2024 08:13-0400 Systolic blood pressure 114 mm[Hg] Dr. Sajan Rowley MD Work Phone: 0(987)482-231933 [place] [address] 11-01-2024 07:19-0400 Body mass index (BMI) [Ratio] 25.3 kg/m2 Dr. Sajan Rowley MD Work Phone: 9(504)220-959033 [place] [address] 11-01-2024 07:19-0400 Body weight 84.[address] Sajan Rowley MD Work Phone: [facility] 11-01-2024 07:19-0400 Heart rate 66 /min Dr. Sajan Rowley MD Work Phone: [facility] 11-01-2024 07:19-0400 Respiratory rate 18 /min Dr. Sajan Rowley MD Work Phone: 8(625)961-395521 [place] [address] 11-01-2024 07:19-0400 SaO2% (BldA) [Mass fraction] 95 % Dr. Sajan Rowley MD Work Phone: 1(505)995-534121 [place] [address] 10-14-2024 13:04-0400 Body height 182.[address] Sajan Rowley MD Work Phone: 9(091)506-037833 [place] [address] 10-14-2024 13:04-0400 Body mass index (BMI) [Ratio] 25 kg/m2 Dr. Sajan Rowley MD Work Phone: 0(801)015-695233 [place] [address] 10-14-2024 13:04-0400 Body temperature 98 [degF] Dr. Sajan Rowley MD Work Phone: 6(944)808-013333 [place] [address] 10-14-2024 13:04-0400 Body weight 83.[address] Sajan Rowley MD Work Phone: 2(853)241-789833 [place] [address] 10-14-2024 13:04-0400 Diastolic blood pressure 68 mm[Hg] Dr. Sajan Rowley MD Work Phone: 1(439)412-715021 [place] [address] 10-14-2024 13:04-0400 Heart rate 71 /min Dr. Sajan Rowley MD Work Phone: 6(614)497-159421 [place] [address] 10-14-2024 13:04-0400 Respiratory rate 15 /min Dr. Sajan Rowley MD Work Phone: 3(761)557-611121 [place] [address] 10-14-2024 13:04-0400 SaO2% (BldA) [Mass fraction] 98 % Dr. Sajan Rowley MD Work Phone: [phone] [place] [address] 10-14-2024 13:04-0400 Systolic blood pressure 124 mm[Hg] Dr. Sajan Rowley MD Work Phone: [facility] 09-22-2023 09:23-0400 Body height 182.[address] Fidencio Rowley Work Phone: [facility] 09-22-2023 09:23-0400 Body weight 84.[address] Fidencio Rowley Work Phone: [facility] 09-21-2023 08:55-0400 Body mass index (BMI) [Ratio] 25.2 kg/m2 Dr. Fidencio Rowley Work Phone: [facility] 07-27-2023 11:08-0500 Body height 182.[address] Fidencio Rowley Work Phone: [facility] 07-27-2023 11:08-0500 Body mass index (BMI) [Ratio] 25.2 kg/m2 Dr. Fidencio Rowley Work Phone: [facility] 07-27-2023 11:08-0500 Body weight 84.[address] Fidencio Rowley Work Phone: [facility] 07-27-2023 11:08-0500 Diastolic blood pressure 64 mm[Hg] Dr. Fidencio Rowley Work Phone: [facility] 07-27-2023 11:08-0500 Heart rate 77 /min Dr. Fidencio Rowley Work Phone: [facility] 07-27-2023 11:08-0500 Respiratory rate 18 /min Dr. Fidencio Rowley Work Phone: [facility] 07-27-2023 11:08-0500 SaO2% (BldA) [Mass fraction] 94 % Dr. Fidencio Rowley Work Phone: [facility] 07-27-2023 11:08-0500 Systolic blood pressure 114 mm[Hg] Dr. Fidencio Rowley Work Phone: [facility] 06-29-2023 13:02-0500 Body mass index (BMI) [Ratio] 25.7 kg/m2 Dr. Fidencio Rowley Work Phone: [facility] 06-29-2023 13:02-0500 Body temperature 97.8 [degF] Dr. Fidencio Rowley Work Phone: [phone](274)[phone] [place] [address] 06-29-2023 13:02-0500 Body weight 86.[address] Fidencio Rowley Work Phone: [facility] 06-29-2023 13:02-0500 Diastolic blood pressure 70 mm[Hg] Dr. Fidencio Rowley Work Phone: 6(671)[phone] [place] [address] 06-29-2023 13:02-0500 Heart rate 95 /min Dr. Fidencio Rowley Work Phone: 9([phone] [address] 06-29-2023 13:02-0500 Respiratory rate 17 /min Dr. Fidencio Rowley Work Phone: [facility] 06-29-2023 13:02-0500 SaO2% (BldA) [Mass fraction] 95 % Dr. Fidencio Rowley Work Phone: [facility] 06-29-2023 13:02-0500 Systolic blood pressure 120 mm[Hg] Dr. Fidencio Rowley Work Phone: [facility] 02-23-2023 11:29-0400 Body height 182.[address] Fidencio Rowley Work Phone: [facility] 02-23-2023 11:29-0400 Body mass index (BMI) [Ratio] 26.4 kg/m2 Dr. Fidencio Rowley Work Phone: [facility] 02-23-2023 11:29-0400 Body temperature 98 [degF] Dr. Fidencio Rowley Work Phone: 1([phone])[phone] [place] [address] 02-23-2023 11:29-0400 Body weight 88.[address] Fidencio Rowley Work Phone: [facility] 02-23-2023 11:29-0400 Diastolic blood pressure 70 mm[Hg] Dr. Fidencio Rowley Work Phone: [facility] 02-23-2023 11:29-0400 Heart rate 71 /min Dr. Fidencio Rowley Work Phone: [facility] 02-23-2023 11:29-0400 Respiratory rate 17 /min Dr. Fidencio Rowley Work Phone: [facility] 02-23-2023 11:29-0400 SaO2% (BldA) [Mass fraction] 95 % Dr. Fidencio Rowley Work Phone: [facility] 02-23-2023 11:29-0400 Systolic blood pressure 132 mm[Hg] Dr. Fidencio Rowley Work Phone: [facility] 10-13-2022 09:59-0400 Body height 182.[address] Fidencio Rowley Work Phone: [facility] 10-13-2022 09:59-0400 Body mass index (BMI) [Ratio] 27.1 kg/m2 Dr. Fidencio Rowley Work Phone: [facility] 10-13-2022 09:59-0400 Body temperature 98 [degF] Dr. Fidencio Rowley Work Phone: [facility] 10-13-2022 09:59-0400 Body weight 90.[address] Fidencio Rowley Work Phone: [facility] 10-13-2022 09:59-0400 Diastolic blood pressure 70 mm[Hg] Dr. Fidencio Rowley Work Phone: [facility] 10-13-2022 09:59-0400 Heart rate 79 /min Dr. Fidencio Rowley Work Phone: [facility] 10-13-2022 09:59-0400 Respiratory rate 17 /min Dr. Fidencio Rowley Work Phone: [facility] 10-13-2022 09:59-0400 SaO2% (BldA) [Mass fraction] 94 % Dr. Fidencio Rowley Work Phone: [facility] 10-13-2022 09:59-0400 Systolic blood pressure 136 mm[Hg] Dr. Fidencio Rowley Work Phone: [facility] 07-28-2022 14:59-0500 Body height 182.[address] Fidencio Rowley Work Phone: [facility] 07-28-2022 14:59-0500 Body mass index (BMI) [Ratio] 27.1 kg/m2 Dr. Fidencio Rowley Work Phone: [facility] 07-28-2022 14:59-0500 Body weight 90.[address] Fidencio Rowley Work Phone: [facility] 07-28-2022 14:59-0500 Diastolic blood pressure 68 mm[Hg] Dr. Fidencio Rowley Work Phone: [facility] 07-28-2022 14:59-0500 Heart rate 62 /min Dr. Fidencio Rowley Work Phone: [facility] 07-28-2022 14:59-0500 Respiratory rate 16 /min Dr. Fidencio Rowley Work Phone: [facility] 07-28-2022 14:59-0500 Systolic blood pressure 132 mm[Hg] Dr. Fidencio Rowley Work Phone: [facility] 07-19-2022 08:04-0500 Body mass index (BMI) [Ratio] 27.1 kg/m2 Dr. Fidencio Rowley Work Phone: [facility] 07-19-2022 08:04-0500 Body temperature 97.5 [degF] Dr. Fidencio Rowley Work Phone: [facility] 07-19-2022 08:04-0500 Body weight 90.[address] Fidencio Rowley Work Phone: [facility] 07-19-2022 08:04-0500 Diastolic blood pressure 71 mm[Hg] Dr. Fidencio Rowley Work Phone: [facility] 07-19-2022 08:04-0500 Heart rate 80 /min Dr. Fidencio Rowley Work Phone: [facility] 07-19-2022 08:04-0500 Respiratory rate 18 /min Dr. Fidencio Rowley Work Phone: [facility] 07-19-2022 08:04-0500 SaO2% (BldA) [Mass fraction] 97 % Dr. Fidencio Rowley Work Phone: [facility] 07-19-2022 08:04-0500 Systolic blood pressure 129 mm[Hg] Dr. Fidencio Rowley Work Phone: [facility] 09-03-2021 10:28-0500 Body height 182.9 cm Merrill Careyt DO Work Phone: [facility] 09-03-2021 10:28-0500 Body mass index (BMI) [Ratio] 27.4 kg/m2 Merrill Careyt DO Work Phone: [facility] 09-03-2021 10:28-0500 Body temperature 98.4 [degF] Merrill Lonnie DO Work Phone: [facility] 09-03-2021 10:28-0500 Body weight 91.63 kg Merrill Careyt DO Work Phone: [facility] 09-03-2021 10:28-0500 Diastolic blood pressure 70 mm[Hg] Merrill Colvingett DO Work Phone: [facility] 09-03-2021 10:28-0500 Heart rate 66 /min Merrilliliana Careyt DO Work Phone: [facility] 09-03-2021 10:28-0500 Respiratory rate 14 /min Merrill Fleming DO Work Phone: [facility] 09-03-2021 10:28-0500 SaO2% (BldA) [Mass fraction] 94 % Merrill Fleming DO Work Phone: [facility] 09-03-2021 10:28-0500 Systolic blood pressure 136 mm[Hg] Merrill Fleming DO Work Phone: [facility] Encounters Encounter Date Encounter Type Care Provider Facility Start: 04-23-2025 End: 04-23-2025 Emergency department [facility] visit [facility] Facility:[facility] Start: 04-02-2025 End: 04-02-[address] Sajan Rowley MD Work Phone: -Physical Therapy Start: 04-02-2025 End: 04-02-[address] Sajan Rowley MD -Physical Therapy Work Phone: Start: 02-18-2025 End: 02-18-[address] Mane Solares MD -[facility] Work Phone: Start: 02-18-2025 End: 02-18-[address] Sajan Rowley MD Work Phone: -[facility] Start: 02-14-[address] Yinka Rowley MD -Physical Therapy Work Phone: Start: 02-05-2025 End: 02-05-2025 Patient encounter procedure Lolly TAVARES -[facility] Work Phone: Start: 02-05-2025 End: 02-05-[address] Sajan Rowley MD Work Phone: -[facility] Start: 02-04-[address] Yinka Rowley MD -Physical Therapy Work Phone: Start: 12-20-2024 End: 12-20-[address] Sajan Rowley MD Work Phone: [facility] Work Phone: Start: 12-20-2024 End: 12-20-[address] Sajan Rowley MD -Laboratory [facility] Start: 12-20-2024 End: 12-20-2024 ambulatory Sajan Rowley Facility:[facility] Start: 11-04-2024 Non-patient / Non-visit May gerard -[facility] Work Phone: Start: 11-04-2024 ambulatory Sajan Rowley Faci lity:[facility] Start: 11-01-2024 End: 11-01-2024 Patient encounter procedure Suzi OMER -[facility] Work Phone: Start: 11-01-2024 End: 11-01-2024 ambulatory Sajan Rowley Facility:[facility] Start: 11-01-2024 End: 11-01-2024 ambulatory Sajan Rowley Facility:[facility] Start: 10-28-2024 End: 10-28-[address] Sajan Rowley MD Work Phone: [facility] Work Phone: Start: 10-28-2024 End: 10-28-[address] Mane Solares MD -Cardiovascular Services Work Phone: Start: 10-28-2024 End: 10-28-2024 ambulatory Sajan Rowley Facility:[facility] Start: 10-14-2024 End: 10-14-[address] Mane Solares MD -[facility] Work Phone: Start: 10-14-2024 End: 10-14-2024 ambulatory Sajan Rowley Facility:[facility] Start: 10-11-2024 ambulatory Teddy Anaya Facility:[facility] Start: 08-22-2024 End: 08-22-[address] Sajan Rowley MD -Laboratory, [facility] Start: 08-22-2024 End: 08-22-2024 ambulatory Sajan Rowley Facility:[facility] Start: 09-22-2023 End: 09-22-2023 Admission to same day surgery center Dr. 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 Fidencio Rowley Work Phone: [facility] Work Phone: Start: 09-07-2023 Non-patient / Non-visit Dr. Ulisses Rowley Work Phone: [facility] Start: 08-31-2023 Non-patient / Non-visit Dr. Ulisses Rowley Work Phone: [facility] Start: 08-31-2023 End: 08-31-[address] Fidencio Rowley Work Phone: [facility] Work Phone: Start: 08-31-2023 End: 08-31-[address] Fidencio Rowley Work Phone: [facility]-Cardiovascul ar Services Work Phone: Start: 08-17-2023 End: 08-17-[address] Fidencio Rowley Work Phone: [facility] Work Phone: Start: 08-17-2023 End: 08-17-[address] Fidencio Rowley Work Phone: [facility] Start: 08-06-2023 End: 08-06-[address] Fidencio Rowley Work Phone: [facility] Work Phone: Start: 07-27-2023 End: 07-27-[address] Fidencio Rowley Work Phone: [facility] Work Phone: Start: 06-29-2023 End: 06-29-[address] Fidencio Rowley Work Phone: [facility] Work Phone: Start: 03-01-2023 Non-patient / Non-visit Dr. Ulisess Rowley Work Phone: [facility] Start: 03-01-2023 End: 03-01-[address] Fidencio Rowley Work Phone: [facility] Work Phone: Start: 03-01-2023 End: 03-01-[address] Fidencio Rowley Work Phone: [facility]-Cardiovascul ar Services Work Phone: Start: 02-23-2023 End: 02-23-[address] Fidencio Rowley Work Phone: [facility] Work Phone: Start: 02-23-2023 End: 02-23-[address] Fidencio Rowley Work Phone: [facility] Work Phone: Start: 02-23-2023 End: 02-23-[address] Fidencio Rowley Work Phone: [facility] Work Phone: Start: 11-15-2022 End: 11-15-[address] Fidencio Rowley Work Phone: [facility] Work Phone: Start: 10-28-[address] Fidencio Rowley Work Phone: [facility] Start: 10-21-2022 End: 10-21-[address] Fidencio Rowley Work Phone: [facility] Work Phone: Start: 10-21-2022 End: 10-21-[address] Fidencio Rowley Work Phone: [facility]-Cardiovascul ar Services Start: 10-17-2022 End: 10-17-[address] Fidencio Rowley Work Phone: [facility] Start: 10-13-2022 End: 10-13-[address] Fidencio Rowley Work Phone: [facility] Neurology Start: 08-12-2022 Non-patient / Non-visit Dr. Ulisses Rowley Work Phone: [facility] Start: 08-09-2022 End: 08-09-[address] Fidencio Rowley Work Phone: [facility] Work Phone: Start: 08-09-2022 End: 08-09-[address] Fidenico Rowley Work Phone: [facility]-Pulmonary Services/Neurology Start: 07-28-2022 End: 07-28-[address] Fidencio Rowley Work Phone: [facility] Start: 07-19-2022 End: 07-19-[address] Fidencio Rowley Work Phone: [facility]-Pulmonary Medicine [facility] Start: 06-27-2022 Non-patient / Non-visit Dr. Ulisses Rowley Work Phone: [facility] Start: 06-24-2022 End: 06-24-[address] Fidencio Rowley Work Phone: [facility] Work Phone: Start: 06-24-2022 End: 06-24-[address] Fidencio Rowley Work Phone: [facility]-Pulmonary Services/Neurology Start: 06-15-2022 Non-patient / Non-visit Dr. Ulisses Rowley Work Phone: [facility] Start: 06-15-2022 End: 06-15-[address] Fidencio Rowley Work Phone: [facility] Work Phone: Start: 06-15-2022 End: 06-15-[address] Fidencio Rowley Work Phone: [facility]-Cardiovascul ar Services Start: 06-14-2022 End: 06-14-2022 Patient encounter procedure [facility] Start: 06-03-2022 End: 06-03-2022 ambulatory [facility] Work Phone: Start: 06-03-2022 End: 06-03-2022 Patient encounter procedure [facility] Start: 09-03-2021 End: 09-03-2021 ambulatory [facility] Ambulatory Start: 09-03-2021 End: 09-03-2021 Office outpatient new 45 minutes Merrill Kobe Fleming DO Work Phone: [facility] Primary Care Physicians Comment on above: Pre-operative examin ation (Primary Dx); Fourth (trochlear) nerve palsy, right eye; Arteriosclerosis of coronary artery; History of coronary artery bypass surgery; Stenosis of right carotid artery; Type 2 diabetes mellitus with other specified complication, without long-term current use of insulin (HCC); Essential hypertension; Hyperlipidemia, unspecified hyperlipidemia type; Hypothyroidism, unspecified type; History of melanoma; Former smoker; History of gout Start: 09-03-2021 End: 09-03-2021 Preprocedural examination done Merrilliliana Fleming DO Work Phone: [facility]icians Start: 10-29-2015 End: 10-30-2015 [facility] Procedures Date Procedure Procedure Detail Performing Clinician Start: 12-20-2024 Urnls dip stick/tabl et reagent auto microscopy Dr. Sajan Rowley MD Work Phone: Start: 12-20-2024 Vitamin D, 25-hydrox y measurement Dr. Sajan Rowley MD Work Phone: Comment on above: Vitamin D StatusDefi ciency: <20 ng/mL (50nmol/L)Insufficiency: 20-30 ng/mL (50-75 nmol/L)Sufficiency: 30-100 ng/mL (75-250 nmol/L)Toxicity: >100 ng/mL (>250 nmol/L) Start: 09-12-2023 Plain chest X-ray Dr. Adelso Rowley Work Phone: Start: 08-31-2023 Radionuclide imaging of perfusion of myocardium under exercise stress Dr. Fidencio Rowley Work Phone: Start: 11-15-2022 Magnetic resonance angiography of head without contrast Dr. 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 Comment on above: CABG x 3: CORCORAN to LA D, SVG to D1, SVG to RPDA 01/03/14 History of coronary artery bypass grafting History of coronary artery bypass surgery Merrill Fleming DO Work Phone: Plan of Treatment Date Care Activity Detail Author Start: 11-01-2024 Patient referral [facility] Work Phone: Start: 09-22-2023 Patient discharge [facility] Start: 02-24-2023 Patient referral [facility] Work Phone: Start: 10-28-2022 [facility] Start: 2006 Fall risk assessment Falls Risk Assessment [facility] Start: 1953 Depression screening using PHQ-9 (Patient Health Questionnaire 9) score Depression Screening (PHQ-2/9) [facility] Start: 1951 Diabetic foot examination Foot Exam [facility] Start: 1951 Microalbumin measurement, urine, quantitative Urine Microalbumin [facility] Start: 1951 Ophthalmic examination and evaluation Ophthalmology Exam [facility] Start: 1944 History and physical examination, annual for health maintenance Wellness Visit [facility] Start: 1941 Hemoglobin A1c measurement A1C [facility] Start: 1941 Tetanus vaccination Tetanus: Every 10yrs [facility] Antibody to lupus La protein measurement [facility] Antibody to SS-A measurement [facility] Centromere protein B Ab [Units/volume] in Serum [facility] Chromatin Ab [Units/volume] in Serum or Plasma [facility] DNA double strand Ab [Units/volume] in Serum [facility] Cammie-1 extractable nuc lear Ab [Units/volume] in Serum [facility] Neutrophil cytoplasm ic Ab.classic [Units/volume] in Serum [facility] Nuclear Ab [Presence ] in Serum [facility] P-ANCA measurement [facility] Patient referral [facility] Work Phone: Radionuclide imaging of perfusion of myocardium under exercise stress [facility] SCL-70 extractable nuclear Ab [Units/volume] in Serum by Immunoassay [facility] Quispe extractable nuclear Ab [Presence] in Serum [facility] US Carotid arteries [facility] Immunizations Immunization Date Immunization Notes Care Provider Fa cility 06-05-2023 Pneumococcal Vaccine PCV20 (Prevnar 20) Dr. Sajan Rowley MD Work Phone: [facility] 05-16-2022 Felicia Dumont nt Booster Dr. Sajan Rowley MD Work Phone: [facility] 05-11-2022 influenza, injectabl e, quadrivalent, preservative free Dr. Sajan Rowley MD Work Phone: [facility] Payers Date Payer Category Payer Self-pay [id number] 2012 Private Health Insurance [id number] 2006 Medicare MEDICARE MEDICAR E PART A & B [id number] 2006-[facility] [phone] [facility] [place] [address] [address] [place] [address] [id number] 2006 Medicare [id number] 1940 Unknown [id number] Unknown [id number] Unknown [id number] .[id number] Unknown [id number] Unknown [id number] .462 Unknown [id number] Unknown [id number] .[id number] Unknown [id number] .462 Unknown [id number] .[id number] Unknown [id number] .[id number] Unknown [id number] .[id number] Unknown [id number] Unknown [id number] Social History Date Type Detail Facility Start: 09-03-2021 End: 02-05-2025 Tobacco smoking status NHIS Ex-smoker [facility] Start: 09-03-2021 Tobacco use and exposure Smokeless tobacco non-user [facility] Start: 09-03-2021 Alcohol intake Ex-drinker (finding) [facility] Start: 1940 Sex Assigned At Not on file [facility] Start: 08-24-2021 End: 09-03-2021 Exposure to SARS-CoV-2 (event) Not sure [facility] Start: 01-17-2022 End: 09-22-2023 Tobacco smoking status LAIS Unknown if ever smoked [facility] Start: 10-21-[address] [facility] Start: 10-21-[address] [facility] Start: 01-07-[address]-sm[address] [facility] Start: 1940 Sex Assigned At Male [facility] Start: 10-31-2024 Sex Male (finding) [facility] Sex Male [facility] Clinical Notes 01-03-2014 to 04-02-2025 Note Date & Type Note Facility 04-02-2025 Discharge summary Note Date/Time April 02, 2025 7:00pm [facility] Physical Therapy [facility] [address] [place] [address] [address] [place] [address] / REHABILITATION SERVICES DISCHARGE SUMMARY MR#: [id number] Acct: [id number] Name: GIA VIRAMONTES Rep #: [id number] 1 : 1940 84 From: Denia Cruz Referring Dr.: Dr. 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 Sajan Rowley MD, with the diagnosis of Instability and LE Strengthening for a total of 13 visit(s). Discharge Date: 04/02/25 Please see the following information for a summary of their discharge status. Subjective Subjective: Pt thinks that his balance has improved but he thinks that he is as good as he is going to get. He uses the cane more and feel more steady with it. Pt has been having back pain and it is not going away. Pt able to get up from the floor with something light to steady himself. Pain Right Hip: Pain Intensity (Out of 10): 0 Low back pain: Pain Intensity (Out of 10): 7 Overall Improvement % Improvement: 40 Objective Objective/Function: FGA: 18 Stairs: up and down recip with 2 hand rails. He goes slow. VC's to remind himto see where his feet are going. Discussion about using a cane for balance and to watch and not turn too fast Goals Goal 1:: Patient will be I with HEP and progression Goal Progress: Goal Met Goal 2:: Patient will get up off the floor without using an outside source Goal Progress: Progressing Goal 3:: Patient will improve FGA by 5 points Goal Progress: Progressing Goal 4:: Patient will ambulate >150 feet with a normalized gait pattern Goal Progress: Progressing Goal 5:: Patient will report 80% improvement Goal Progress: Progressing Plan Plan: DC PT to HEP D/C Information Discharge Comments: DC PT to HEP and use a can for an extra balance point d/c sentence: If there are questions or concerns regarding this patient's physical therapy, please feel free to call me at [phone]. Thank you for the referral of thispatient. Sincerely, CHAUNCEY Fowler Balance/Gait/Functional tests Balance/Special Test Scores Functional Gait Assessment Score: 18 % Disability: 40.0000 CATSIB Score (Max score 120 seconds): 57 Lower Extremity Functional Score: 54 30 Second Chair Rise Test Seconds: 10 Improvement % Improvement: 40 <Electronically signed by Denia Ansari MPT> 04/02/25 1345 CC: Dr. Sajan Rowley MD ~ Signed [facility] Work Phone: 1(336) 823-719109-24-2025 Discharge summary [facility] Physical Therapy [address] [place] [address] / REHABILITATION SERVICES DISCHARGE SUMMARY MR#: [id number] Acct: [id number] Name: GIA VIRAMONTES Rep #: [id number] 1 : 1940 84 From: Denia Cruz Referring Dr.: Dr. 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 Sajan Rowley MD, with thediagnosis of Instability and LE Strengthening for a total of 13 visit(s). Discharge Date: 04/02/25 Please see the following information for a summary of their discharge status. Subjective Subjective: Pt thinks that his balance has improved but he thinks that he is as good as he is goingto get. He uses the cane more and feel more steady with it. Pt has been having back pain and it is not going away. Pt able to get up from the floor with something light to steady himself. Pain Right Hip: Pain Intensity (Out of 10): 0 Low back pain: Pain Intensity (Out of 10): 7 Overall Improvement % Improvement: 40 Objective Objective/Function: FGA: 18 Stairs: up and down recip with 2 hand rails. He goes slow. VC's to remind himto see where his feet are going. Discussion about using a cane for balance and to watch and not turn too fast Goals Goal 1:: Patient will be I with HEP and progression Goal Progress: Goal Met Goal 2:: Patient will get up off the floor without using an outside source Goal Progress: Progressing Goal 3:: Patient will improve FGA by 5 points Goal Progress: Progressing Goal 4:: Patient will ambulate >150 feet with a normalized gait pattern Goal Progress: Progressing Goal 5:: Patient will report 80% improvement Goal Progress: Progressing Plan Plan: DC PT to HEP D/C Information Discharge Comments: DC PT to HEP and use a can for an extra balance point d/c sentence: If there are questions or concerns regarding this patient's physical therapy, please feel free to call me at [phone]. Thank you for the referral of thispatient. Sincerely, Denia Ansari, MPT Balance/Gait/Functional tests Balance/Special Test Scores Functional Gait Assessment Score: 18 % Disability: 40.0000 CATSIB Score (Max score 120 seconds): 57 Lower Extremity Functional Score: 54 30 Second Chair Rise Test Seconds: 10 Improvement % Improvement: 40 04/02/25 1345 CC: Dr. Sajan Rowley MD ~ Signed [facility]07-30-2025 Evaluation note* Diagnosis Onset Date Resolution Status Admit Date Carotid artery stenosis acute J 2024 12:51pm Peripheral arterial disease acute February 05, 2025 12:51pm Bilateral carotid bruits acute February 18, 2025 9:54am Polyneuropathy acute February 9:54am [facility] Work Phone: 1([phone]) 910-459704-25-2025 Evaluation note* Diagnosis Onset Date Resolution Status Admit Date Hyperlipemia acute November 01, 2024 7:50am 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, 2014 resolved November 01, 2024 7:50am Dysrhythmia, cardiac inactive Apri l 2024 7:50am Essential (primary) hypertension inactive November 01, 2024 7:50am Stenosis of right carotid artery inactive November 01, 2024 7:50am Carotid artery stenosis acute 2024 12:51pm Peripheral arterial disease acute February 05, 2025 12:51pm [facility] Work Phone: 1(854) 794-749404-07-2025 Evaluation note* Diagnosis Onset Date Resolution Status Admit Date Bilateral carotid bruits acute October 14, 2024 1:04pm Polyneuropathy acute October 14, 2024 1:04pm [facility] Work Phone: 1(222) 608-103004-07-2025 Evaluation note* Diagnosis Onset Date Resolution Status Admit Date Bilateral carotid bruits acute October 14, 2024 1:04pm Polyneuropathy acute October 14, 2024 1:04pm Hyperlipemia acute November 01, 2024 7:50am 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, 2014 resolved November 01, 2024 7:50am Dysrhythmia, cardiac inactive Apri l 2024 7:50am Essential (primary) hypertension inactive November 01, 2024 7:50am Stenosis of right carotid artery inactive November 01, 2024 7:50am [facility] Work Phone: 1(274) 655-913102-25-2022 History of Present illness Narrative* Merrill Kobe Lonnie, DO - 09/03/2021 10:15 AM EST HISTORY Patient Name: Gia Viramontes Date of Exam: 09/03/2021 Date of Surgery: 09/03/21 Diagnosis: Fourth trochlear nerve palsy right eye Reason for visit/consultation: Medical risk stratification for same day surgery History of current illness: Gia Viarmontes is a 81 y.o. male who presents for preoperative medical risk stratification prior to eye surgery at the request of Dr. Castro. His medical conditions include: CAD s/p triple [...] for this visit. PHYSICAL Patient Name: Gia Viramontes Age: 81 y.o. BP 136/70 Pulse 66 [...] Q-T Interval (corrected) QTC Calculation (Bezet) P [place] R [place] T [place] IMPRESSION/PLAN: 81 y.o. female being seen today for preoperative medical risk stratification for same-day eye surgery at the request of Dr. Catsro. The patient appears stable from a cardiovascularstandpoint, blood pressure acceptable, held aspirin today. Diabetes [...] Please feel free to contact our office withany questions. A copy of this evaluation was provided to the referring physician. Merrill Fleming D.O. Family Medicine / Sports Medicine [facility] Primary Care Physicians documented in this [id number] Evaluation note* Diagnosis Onset Date Resolution Status Dysrhythmia, cardiac acute Essential (primary) hypertension chronic Hyperlipemia chronic Stenosis of right carotid artery chronic 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, 2014 resolved Cold sore acute [facility] Work Phone: Evaluation note* Diagnosis Pre-operative examination- Primary Unspecified pre-operative examination Fourth (trochlear) nerve palsy, right eye Arteriosclerosis of coronary artery History of coronary artery bypass surgery Postsurgical aortocoronary bypass status Stenosis of right carotid artery Occlusion and stenosis of carotid artery without mention of cerebral infarction Type 2 diabetes mellitus with other specified complication, without long-term current use of insulin (HCC) Essential hypertension Unspecified essential hypertension Hyperlipidemia, unspecified hyperlipidemia type Hypothyroidism, unspecified type History of melanoma Personal history of malignant melanoma 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 Personal history of tobacco use, presenting hazards to health History of gout Personal history of endocrine, metabolic, and immunity disorders [facility] Work Phone: Evaluation note* Diagnosis Onset Date Resolution Status Dyspnea acute Irregular heart beat noneact ramírez Dysrhythmia, cardiac acute Essential (primary) hypertension chronic Hyperlipemia chronic Stenosis of right carotid artery chronic 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, 2014 resolved [facility] Work Phone: Evaluation note* Diagnosis Onset Date Resolution Status Dyspnea acute Irregular heart beat noneact ramírez Dysrhythmia, cardiac acute Essential (primary) hypertension chronic Hyperlipemia chronic Stenosis of right carotid artery chronic 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, 2014 resolved Family history of cerebral aneurysm acute Peripheral arterial disease acute Polyneuropathy chronic [facility] Work Phone: Evaluation note* Diagnosis Onset Date Resolution Status Peripheral arterial disease chronic Polyneuropathy chronic Stenosis of right carotid artery chronic [facility] Work Phone: Reason for referral (narrative)No reason for referral information availableWThe [facility] Work Phone: Summary Purpose Family History No Family History Records Found Relationship Condition Age at Onset Recorded Date/T magdalena Not Specified Arthritis Unknown Cardiac disease Unknown father Diabetes mellitus Unknown Hypertension Unknown High blood cholesterol Unknown brother High blood cholesterol Unknown Relationship Condition Age at Onset Recorded Date/T magdalena father Diabetes mellitus Unknown Hypertension Unknown High blood cholesterol Unknown brother High blood cholesterol Unknown mother Arthritis Unknown Cardiac disease Unknown Advance Directives No Advanced Directives Records FoundDocuments on File Type Date Recorded Patient Superintendent Track Expl anation Advance Directives and Living Will Advance Directive Response Recorded Date/ Time Advance Directives Yes June 10, 2019 9:10am Living Will Yes January 08, 2021 5 :17pm Power of Supervisor [employer] Yes January 08, 2021 5:17pm Advance Directive Response Recorded Date/ Time Advance Directives Yes June 10, 2019 10:10am Living Will Yes January 08, 2021 6 :17pm Power of Supervisor [employer] Yes January 08, 2021 6:17pm Advance Directive Response Recorded Date/ Time Advance Directives on File Yes September 22, 2023 9:23am Name of Medical Power of Supervisor [employer] July Viramontes September 22, 2023 9:23am Advance Directives Yes September 21 9:23am Living Will Yes September 22, 2023 9:23am Power of Supervisor [employer] Yes September 21 9:23am Advance Directive Response Recorded Date/ Time Living Will Yes September 22, 2023 9:23am Do you have a Healthcare Power of Supervisor [employer]? Yes September 22, 2023 9:23am Advance Directives Yes September 21 9:23am Advance Directive Response Recorded Date/ Time Advance Directives Yes September 21 9:23am Chief Complaint and Reason for Visit Chief Complaint CONFUSION Chief Complaint CONFUSION CONFUSION Chief Complaint CONFUSION CONFUSION DYSPNEA DYSPNEA Chief Complaint CONFUSION CONFUSION DYSPNEA DYSPNEA 6 M FU See PMW 07/19 OV - 1 Y FU CARDIAC ARRHYTHMIA Amb Documentation Reason for Visit Dyspnea Irregular heart beat Dysrhythmia, cardiac Essential (primary) hypertension Hyperlipemia Stenosis of right carotid artery H/O coronary artery bypass surgery Chief Complaint 6 M FU See PMW 07/19 OV - 1 Y FU CARDIAC ARRHYTHMIA Amb Documentation Neuropathy PVD, MONITOR PAD Reason for Visit Dyspnea Irregular heart beat Dysrhythmia, cardiac Essential (primary) hypertension Hyperlipemia Stenosis of right carotid artery H/O coronary artery bypass surgery Family history of cerebral aneurysm Peripheral arterial disease Polyneuropathy Chief Complaint Family history of is chemic heart disease and other 4 M FU eorder OCCLUSION/STENOSIS RT CAROTID ARTERY Reason for Visit Peripheral arterial disease Polyneuropathy Stenosis of right carotid artery Chief Complaint 4 M FU 1 Y FU SORES ON BOTTOM LIP Reason for Visit Dysrhythmia, cardiac Essential (primary) hypertension Hyperlipemia Stenosis of right carotid artery H/O coronary artery bypass surgery Cold sore Chief Complaint 4 M FU 1 Y FU SORES ON BOTTOM LIP CAD SOB CAD SOB Reason for Visit Dysrhythmia, cardiac Essential (primary) hypertension Hyperlipemia Stenosis of right carotid artery H/O coronary artery bypass surgery Cold sore Chief Complaint 4 M FU 1 Y FU SORES ON BOTTOM LIP CAD SOB CAD SOB ABN STRESS ABN STRESS Reason for Visit Dysrhythmia, cardiac Essential (primary) hypertension Hyperlipemia Stenosis of right carotid artery H/O coronary artery bypass surgery Cold sore Chief Complaint Admit Date 1 Y FU October 14, 2024 1:04 pm BILAT CAROTID BRUITS October 28, 2024 7: 54am Reason for Visit Admit Date Bilateral carotid bruits October 14, 2024 1:04pm Polyneuropathy October 14, 2024 1:04 pm Chief Complaint Admit Date 1 Y FU October 14, 2024 1:04 pm BILAT CAROTID BRUITS October 28, 2024 7: 54am CAROTID BRUIT October 28, 2024 8:1 2am 1 Y FU November 01, 2024 7:5 0am EORDERS November 01, 2024 8:2 4am Amb Documentation November 04, 2024 11: 18am Reason for Visit Admit Date Bilateral carotid bruits October 14, 2024 1:04pm Polyneuropathy October 14, 2024 1:04 pm Hyperlipemia November 01, 2024 7:5 0am H/O coronary artery bypass surgery November 01, 2024 7:50am Dysrhythmia, cardiac November 01, 2024 7: 50am Essential (primary) hypertension October 092024 7:50am Stenosis of right carotid artery October 092024 7:50am Chief Complaint Admit Date 1 Y FU October 14, 2024 1:04 pm BILAT CAROTID BRUITS October 28, 2024 7: 54am CAROTID BRUIT October 28, 2024 8:1 2am 1 Y FU November 01, 2024 7:5 0am EORDERS November 01, 2024 8:2 4am Amb Documentation November 04, 2024 11: 18am DR TO FAX February 04, 2025 1:38 pm Consult Right Carotid Stenosis January 12:51pm Chief Complaint Admit Date BILAT CAROTID BRUITS October 28, 2024 7: 54am CAROTID BRUIT October 28, 2024 8:1 2am 1 Y FU November 01, 2024 7:5 0am EORDERS November 01, 2024 8:2 4am Amb Documentation November 04, 2024 11: 18am Consult Right Carotid Stenosis January 12:51pm DR TO FAX February 14, 2025 10: 30am 4 MO FU February 18, 2025 9: 54am Reason for Visit Admit Date Hyperlipemia November 01, 2024 7:5 0am H/O coronary artery bypass surgery November 01, 2024 7:50am Dysrhythmia, cardiac November 01, 2024 7: 50am Essential (primary) hypertension October 092024 7:50am Stenosis of right carotid artery October 092024 7:50am Carotid artery stenosis February 05, 2025 12:51pm Peripheral arterial disease February 05, 2 025 12:51pm Chief Complaint Admit Date Consult Right Carotid Stenosis January 12:51pm 4 MO FU February 18, 2025 9: 54am DR TO FAX April 02, 2025 1:00pm Reason for Visit Admit Date Carotid artery stenosis February 05, 2025 12:51pm Peripheral arterial disease February 05, 2 025 12:51pm Bilateral carotid bruits February 18 9:54am Polyneuropathy February 18, 2025 9: 54am Additional Source Comments (unrecognized sect ion and content) No Status Records FoundNo Status Records FoundNo Status Records Found INFORMATION SOURCE (unrecogn ized section and content) DATE CREATED AUTHOR 12/28/2017 [facility] DATE CREATED AUTHOR AUTHOR'S ORGANIZ ATION 09/04/2021 [facility] DATE CREATED AUTHOR AUTHOR'S ORGANIZ ATION 04/25/2025 [facility] Reason for Visit (unrecogniz ed section and content) Reason Comments Perioperative Medical Evaluation Fourth trochlear nerve palsy right eye Care Teams (unrecognized sec tion and content) Speedometer Inspector Relationship Specialty Start Date End Date No, Physician [facility] PCP - General 09/02/21 Team Status: Active Member Role Status Dates Dr. Fidencio Rowley MD Family Provider Active Dr. Fidencio Rowley MD Primary Care Provider Activ e Team Status: Inactive Member Role Status Dates Dr. Fidencio Rowley MD Primary Care Provider, Refe rring Provider Active Debi Holguin LOUVER MORTISER OPERATOR, LOUVER MORTISER OPERATOR-C Attending Provider Active Team Status: Inactive Member Role Status Dates Dr. Fidencio Rowley MD Primary Care Provider, Refe rring Provider Active Dr. Teddy Anaya MD Attending Provider Active Team Status: Active Member Role Status Dates Dr. Fidencio Rowley MD Primary Care Provider, Refe rring Provider Active Dr. Amauri Ruelas MD Attending Provider Active Team Status: Active Member Role Status Dates Dr. Fidencio Rowley MD Primary Care Provider Activ e Dr. Teddy Anaya MD Attending Provider Active Team Status: Active Member Role Status Dates Dr. Fidencio Rowley MD Primary Care Provider Activ e Dr. Ronnie Merida MD Attending Provider , Referring Provider, Other Provider Active Team Status: Active Member Role Status Dates Dr. Fidencio Rowley MD Primary Care Provider Activ e Star Doherty NP, LOUVER MORTISER OPERATOR-C Attending Provider Active Team Status: Inactive Member Role Status Dates Dr. Fidencio Rowley MD Primary Care Provider Activ e Dr. Ronnie Merida MD Attending Provider, Referring Pr ovider Active Team Status: Inactive Member Role Status Dates Dr. Fidencio Rowley MD Primary Care Provider, Attending Provider, Referring Provider Active Team Status: Inactive Member Role Status Dates Dr. Fidencio Rowley MD Primary Care Provider Activ e Dr. Teddy Anaya MD Attending Provider, Referring Pro vider Active Team Status: Inactive Member Role Status Dates Dr. Fidencio Rowley MD Primary Care Provider, Refe rring Provider Active Dr. Mane Solares MD Attending Provider Active Team Status: Inactive Member Role Status Dates Dr. Fidencio Rowley MD Primary Care Provider Activ e Dr. Mane Solares MD Attending Provider Active Team Status: Inactive Member Role Status Dates Dr. Fidencio Rowley MD Primary Care Provider, Atte nding Provider Active Team Status: Active Member Role Status Dates Dr. Fidencio Rowley MD Primary Care Provider Activ e Dr. Star Skinner MD Attending Provider Active Team Status: Inactive Member Role Status Dates Dr. Fidencio Rowley MD Primary Care Provider Activ e Dr. Mane Solares MD Attending Provider, Referring Provider Active Team Status: Active Member Role Status Dates Dr. Fidencio Rowley MD Primary Care Provider Activ e Dr. Mane Solares MD Attending Provider, Referring Provider Active Team Status: Active Member Role Status Dates Dr. Fidencio Rowley MD Primary Care Provider Activ e Dr. Amauri Ruelas MD Attending Provider Active Team Status: Inactive Member Role Status Dates Dr. Fidencio Rowley MD Primary Care Provider, Refe rring Provider Active Suzi Dye LOUVER MORTISER OPERATOR, LOUVER MORTISER OPERATOR-C Attending Provider Active Team Status: Inactive Member Role Status Dates Dr. Fidencio Rowley MD Primary Care Provider, Refe rring Provider Active Yesica Solano NP-C Attending Provider Active Team Status: Active Member Role Status Dates Dr. Fidencio Rowley MD Primary Care Provider Activ e Suzi Dye LOUVER MORTISER OPERATOR, LOUVER MORTISER OPERATOR-C Referring Provider, Other Provi irene Active Dr. Teddy Anaya MD Attending Provider Active Team Status: Inactive Member Role Status Dates Dr. Fidencio Rowley MD Primary Care Provider Activ e Suzi Dye LOUVER MORTISER OPERATOR, LOUVER MORTISER OPERATOR-C Attending Provider, Referring P sharri Active Team Status: Active Member Role Status Dates Dr. Fidencio Rowley MD Primary Care Provider Activ e Dr. Teddy Anaya MD Attending Provider, Other Provide r Active Team Status: Active Member Role Status Dates Dr. Sajan Rowley MD Primary Care Provider Acti ve Team Status: Inactive Member Role Status Dates Dr. Sajan Rowley MD Primary Care Provider Acti ve Start: August 22, 2024 End: August 22, 2024 Dr. Sajan Rowley MD Attending Provider Active Start: August 22, 2024 End: August 22, 2024 Dr. Sajan Rowley MD Referring Provider Active Start: August 22, 2024 End: August 22, 2024 Team Status: Inactive Member Role Status Dates Dr. Sajan Rowley MD Primary Care Provider Acti ve Start: October 14, 2024 End: October 14, 2024 Dr. Sajan Rowley MD Referring Provider Active Start: October 14, 2024 End: October 14, 2024 Dr. Mane Solares MD Attending Provider Active Start: October 14, 2024 End: October 14, 2024 Team Status: Inactive Member Role Status Dates Dr. Sajan Rowley MD Primary Care Provider Acti ve Start: October 28, 2024 End: October 28, 2024 Dr. Mane Solares MD Attending Provider Active Start: October 28, 2024 End: October 28, 2024 Dr. Mane Solares MD Referring Provider Active Start: October 28, 2024 End: October 28, 2024 Team Status: Active Member Role Status Dates Dr. Michael East MD Attending Provider Active Start: October 28, 2024 Dr. Mane Solares MD Referring Provider Active Start: October 28, 2024 Team Status: Inactive Member Role Status Dates Dr. Sajan Rowley MD Primary Care Provider Acti ve Start: November 01, 2024 End: November 01, 2024 Dr. Sajan Rowley MD Referring Provider Active Start: November 01, 2024 End: November 01, 2024 Suzi Dye LOUVER MORTISER OPERATOR, LOUVER MORTISER OPERATOR-C Attending Provider Active Start: November 01, 2024 End: November 01, 2024 Team Status: Inactive Member Role Status Dates Dr. Sajan Rowley MD Primary Care Provider Acti ve Start: November 01, 2024 End: November 01, 2024 Suzi Dye LOUVER MORTISER OPERATOR, LOUVER MORTISER OPERATOR-C Attending Provider Active Start: November 01, 2024 End: November 01, 2024 Suzi Dye LOUVER MORTISER OPERATOR, LOUVER MORTISER OPERATOR-C Referring Provider Active Start: November 01, 2024 End: November 01, 2024 Team Status: Active Member Role Status Dates Dr. Sajan Rowley MD Primary Care Provider Acti ve Start: November 04, 2024 May Bowles Attending Provider Active Start: November 04, 2024 Team Status: Inactive Member Role Status Dates Dr. Sajan Rowley MD Primary Care Provider Acti ve Start: December 20, 2024 End: December 20, 2024 Dr. Sajan Rowley MD Attending Provider Active Start: December 20, 2024 End: December 20, 2024 Dr. Sajan Rowley MD Referring Provider Active Start: December 20, 2024 End: December 20, 2024 Team Status: Active Member Role/Relationship Status Dates Dr. Sajan Rowley MD Primary Care Provider Acti ve Team Status: Inactive Member Role/Relationship Status Dates Dr. Sajan Rowley MD Primary Care Provider Acti ve Start: October 14, 2024 End: October 14, 2024 Dr. Sajan Rowley MD Referring Provider Active Start: October 14, 2024 End: October 14, 2024 Dr. Mane Solares MD Attending Provider Active Start: October 14, 2024 End: October 14, 2024 Team Status: Inactive Member Role/Relationship Status Dates Dr. Sajan Rowley MD Primary Care Provider Acti ve Start: October 28, 2024 End: October 28, 2024 Dr. Mane Solares MD Attending Provider Active Start: October 28, 2024 End: October 28, 2024 Dr. Mane Solares MD Referring Provider Active Start: October 28, 2024 End: October 28, 2024 Team Status: Active Member Role/Relationship Status Dates Dr. Michael East MD Attending Provider Active Start: October 28, 2024 Dr. Mane Solares MD Referring Provider Active Start: October 28, 2024 Team Status: Inactive Member Role/Relationship Status Dates Dr. Sajan Rowley MD Primary Care Provider Acti ve Start: November 01, 2024 End: November 01, 2024 Dr. Sajan Rowley MD Referring Provider Active Start: November 01, 2024 End: November 01, 2024 Suzi Dye LOUVER MORTISER OPERATOR, LOUVER MORTISER OPERATOR-C Attending Provider Active Start: November 01, 2024 End: November 01, 2024 Team Status: Inactive Member Role/Relationship Status Dates Dr. Sajan Rowley MD Primary Care Provider Acti ve Start: November 01, 2024 End: November 01, 2024 Suzi Dye LOUVER MORTISER OPERATOR, LOUVER MORTISER OPERATOR-C Attending Provider Active Start: November 01, 2024 End: November 01, 2024 Suzi Dye LOUVER MORTISER OPERATOR, LOUVER MORTISER OPERATOR-C Referring Provider Active Start: November 01, 2024 End: November 01, 2024 Team Status: Active Member Role/Relationship Status Dates Dr. Sajan Rowley MD Primary Care Provider Acti ve Start: November 04, 2024 May Bowles Attending Provider Active Start: November 04, 2024 Team Status: Inactive Member Role/Relationship Status Dates Dr. Sajan Rowley MD Primary Care Provider Acti ve Start: December 20, 2024 End: December 20, 2024 Dr. Sajan Rowley MD Attending Provider Active Start: December 20, 2024 End: December 20, 2024 Dr. Sajan Rowley MD Referring Provider Active Start: December 20, 2024 End: December 20, 2024 Team Status: Active Member Role/Relationship Status Dates Dr. Sajan Rowley MD Primary Care Provider Acti ve Start: February 04, 2025 Dr. Sajan Rowley MD Attending Provider Active Start: February 04, 2025 Dr. Sajan Rowley MD Referring Provider Active Start: February 04, 2025 Team Status: Inactive Member Role/Relationship Status Dates Dr. Sajan Rowley MD Primary Care Provider Acti ve Start: February 05, 2025 End: February 05, 2025 Dr. Sajan Rowley MD Referring Provider Active Start: February 05, 2025 End: February 05, 2025 ANUSHA Mcdaniel Attending Provider Active Star t: February 05, 2025 End: February 05, 2025 Team Status: Inactive Member Role/Relationship Status Dates Dr. Sajan Rowley MD Primary Care Provider Acti ve Start: October 28, 2024 End: October 28, 2024 Dr. Mane Solares MD Attending Provider Active Start: October 28, 2024 End: October 28, 2024 Dr. Mane Solares MD Referring Provider Active Start: October 28, 2024 End: October 28, 2024 Team Status: Active Member Role/Relationship Status Dates Dr. Michael East MD Attending Provider Active Start: October 28, 2024 Dr. Mane Solares MD Referring Provider Active Start: October 28, 2024 Team Status: Inactive Member Role/Relationship Status Dates Dr. Sajan Rowley MD Primary Care Provider Acti ve Start: November 01, 2024 End: November 01, 2024 Dr. Sajan Rowley MD Referring Provider Active Start: November 01, 2024 End: November 01, 2024 Suzi Dye LOUVER MORTISER OPERATOR, LOUVER MORTISER OPERATOR-C Attending Provider Active Start: November 01, 2024 End: November 01, 2024 Team Status: Inactive Member Role/Relationship Status Dates Dr. Sajan Rowley MD Primary Care Provider Acti ve Start: November 01, 2024 End: November 01, 2024 Suzi Dye [employer] OPERATOR, [employer] OPERATOR-C Attending Provider Active Start: November 01, 2024 End: November 01, 2024 Suzi Dye [employer] OPERATOR, [employer] OPERATOR-C Referring Provider Active Start: November 01, 2024 End: November 01, 2024 Team Status: Active Member Role/Relationship Status Dates Dr. Sajan Rowley MD Primary Care Provider Acti ve Start: November 04, 2024 May Bowles Attending Provider Active Start: November 04, 2024 Team Status: Inactive Member Role/Relationship Status Dates Dr. Sajan Rowley MD Primary Care Provider Acti ve Start: December 20, 2024 End: December 20, 2024 Dr. Sajan Rowley MD Attending Provider Active Start: December 20, 2024 End: December 20, 2024 Dr. Sajan Rowley MD Referring Provider Active Start: December 20, 2024 End: December 20, 2024 Team Status: Inactive Member Role/Relationship Status Dates Dr. Sajan Rowley MD Primary Care Provider Acti ve Start: February 05, 2025 End: February 05, 2025 Dr. Sajan Rowley MD Referring Provider Active Start: February 05, 2025 End: February 05, 2025 ANUSHA Mcdaniel Attending Provider Active Star t: February 05, 2025 End: February 05, 2025 Team Status: Active Member Role/Relationship Status Dates Dr. Sajan Rowley MD Primary Care Provider Acti ve Start: February 14, 2025 Dr. Sajan Rowley MD Attending Provider Active Start: February 14, 2025 Dr. Sajan Rowley MD Referring Provider Active Start: February 14, 2025 Team Status: Inactive Member Role/Relationship Status Dates Dr. Sajan Rowley MD Primary Care Provider Acti ve Start: February 18, 2025 End: February 18, 2025 Dr. Sajan Rowley MD Referring Provider Active Start: February 18, 2025 End: February 18, 2025 Dr. Mane Solares MD Attending Provider Active Start: February 18, 2025 End: February 18, 2025 Team Status: Active Member Role/Relationship Status Dates Dr. Sajan Rowley MD Primary care physician Act ramírez Team Status: Inactive Member Role/Relationship Status Dates Dr. Sajan Rowley MD Primary care physician Act ramírez Start: December 20, 2024 End: December 20, 2024 Dr. Sajan Rowley MD Attending physician Active Start: December 20, 2024 End: December 20, 2024 Dr. Sajan Rowley MD Referring Provider Active Start: December 20, 2024 End: December 20, 2024 Team Status: Inactive Member Role/Relationship Status Dates Dr. Sajan Rowley MD Primary care physician Act ramírez Start: February 05, 2025 End: February 05, 2025 Dr. Sajan Rowley MD Referring Provider Active Start: February 05, 2025 End: February 05, 2025 ANUSHA Mcdaniel Attending physician Active Sta rt: February 05, 2025 End: February 05, 2025 Team Status: Inactive Member Role/Relationship Status Dates Dr. Sajan Rowley MD Primary care physician Act ramírez Start: February 18, 2025 End: February 18, 2025 Dr. Sajan Rowley MD Referring Provider Active Start: February 18, 2025 End: February 18, 2025 Dr. Mane Solares MD Attending physician Active Start: February 18, 2025 End: February 18, 2025 Team Status: Inactive Member Role/Relationship Status Dates Dr. Sajan Rowley MD Primary care physician Act ramírez Start: April 02, 2025 End: April 02, 2025 Dr. Sajan Rowley MD Attending physician Active Start: April 02, 2025 End: April 02, 2025 Dr. Sajan Rowley MD Referring Provider Active Start: April 02, 2025 End: April 02, 2025 Goals (unrecognized section and content) Goals may be documented in a n alternate sectionGoals may be documented in an alternate sectionGoals may be documented in an alternate sectionGoals may be documented in an alternate sectionGoals may be documented in an alternate sectionGoals may be documented in an alternate sectionGoals may be documented in an alternate sectionGoals may be documented in an alternate sectionGoals may be documented in an alternate sectionGoals may be documented in an alternate sectionGoals may be documented in an alternate sectionGoals may be documented in an alternate sectionGoals may be documented in an alternate sectionGoals may be documented in an alternate sectionGoals may be documented in an alternate section FOR RECORDS PERTAINING TO PATIENTS WHO ARE [...] BE BASED ON THE PRIMARY CLINICAL RECORDS. [employer] [facility]. provides no warranty or guarantee of the accuracy or completeness of information in this document.
== END | disposition home or self-care (01) ==
PROVIDERS: PCP Family Medicine; Visit Provider Physician Assistant Surgical
DX: R35.0 Frequency of micturition (principal)
CPT/HCPCS: 87077; 87086; 87088; 87186

== ENCOUNTER → 2025-06-16 | Outpatient (CLI) | payer MEDICARE, OTHER, SELFPAY ==
--- OUTSIDE RECORDS SUMMARY | 2025-06-16 17:27 | XMS RPT_ITS | CCD ---
Author Organization [facility] CliniSyid Care Team Providers Care Recreational Counselor Name Role Phone GREG CHAVEZ Johana Doty, Physician Primary Care Provider MERRILL Harry Attending KATI Goldberg Referring Unava ilable TRA, PHYSICIAN Primary Care Unavailable Dr. Fidencio Rowley Primary Care Provider Dr. Teddy Anaya Attending Provider [phone] Amauri Ruelas Attending Provider [phone] Ronnie Merida Attending Provider Dr. Ronnie Merida Referring Provider Dr. Ronnie Merida Other Provider Dr. Fidencio Rowley Referring Provider Ezio PHARMACEUTICAL WORKER, PHARMACEUTICAL WORKER-C Debi Attending Provider [phone] Chas PHARMACEUTICAL WORKER, PHARMACEUTICAL WORKER-C Star Guevara Attending Provider Dr. Fidencio Rowley Primary Care Provider Dr. Fidencio Rowley Referring Provider Ezio PHARMACEUTICAL WORKER, PHARMACEUTICAL WORKER-C Debi Attending Provider [phone] Dr. Teddy Anaya Attending Provider [phone] KAN Doherty NP Attending Provider Dr. Mane Solares Attending Provider [phone] Fidencio Rowley Primary Care Provider [phone] Dr. Fidencio Rowley Referring Provider Dr. Mane Solares Attending Provider Dr. Amauri Ruelas Attending Provider Dr. Fidencio Rowley Primary Care Provider Dr. Fidencio Rowley Referring Provider Dr. Mane Solares Attending Provider Hardik PHARMACEUTICAL WORKER, PHARMACEUTICAL WORKER-C Suzi Attending Provider KAN Solano Attending Provider Hardik PHARMACEUTICAL WORKER, PHARMACEUTICAL WORKER-C Suzi Referring Provider Hardik PHARMACEUTICAL WORKER, PHARMACEUTICAL WORKER-C Suzi Other Provider [phone] Dr. Teddy Anaya Attending Provider [phone] Fidencio Rowley Primary Care Provider Dr. Fidencio Rowley Referring Provider Dr. Mane Solares Attending Provider [phone] Hardik NAVARRO, PHARMACEUTICAL WORKER-C Suzi Attending Provider KAN Solano Attending Provider Hardik PHARMACEUTICAL WORKER, PHARMACEUTICAL WORKER-C Suzi Referring Provider Hardik NAVARRO, PHARMACEUTICAL WORKER-C Suzi Other Provider [phone] Dr. Teddy Anaya Attending Provider [phone] Teddy Anaya Other Provider Amrik FARLEY, Dr. Moeller Primary Care Provider Amrik FARLEY, Dr. Moeller Attending Provider [phone] Amrik FARLEY, Dr. Moeller Referring Provider [phone] Dr. Mane Solares MD Attending Provider Dr. Mane Solares MD Referring Provider Amrik FARLEY, Dr. Moeller Primary Care Provider Amrik FARLEY, Dr. Moeller Referring Provider Kita FARLEY, Dr. Michael Rousseau Attending Provider Hardik NAVARRO-CSuzi Attending Provider [phone] Hardik NAVARRO-C, Suzi Referring Provider May Bowles Attending Provider Unavailable Amrik FARLEY, Dr. Moeller Attending Provider [phone] Lolly Gamboa Attending Provider Amrik FARLEY, Dr. Moeller Primary Care Provider Beck FARLEY, Dr. Gilliam Attending Provider Amrik FARLEY, Dr. Moeller Referring Provider Amrik FARLEY, Dr. Moeller Primary Care Physicia n Amrik FARLEY, Dr. Moeller Attending Physician Amrik FARLEY, Dr. Moeller Referring Provider [phone] Lolly Gamboa Attending Physician Beck FARLEY, Dr. Gilliam Attending Physician [phone] Amrik FARLEY, Dr. Moeller Primary Care Physicia n Amrik FARLEY, Dr. Moeller Referring Provider Amrik FARLEY, Dr. Moeller Attending Physician Saul FARLEY, Dr. Romero Attending Physician Saul FARLEY, Dr. Romero Emergency Department Physician Noel Newsome Attending Physician Nick Hughes Attending Unavailable Ranney, Christopher Primary Care Unavailable Ranney, Christopher Primary Care Unavailable Noel Newsome Attending Unavailable Ranney, Christopher Primary Care Unavailable Ranney, Christopher Referring Unavailable Ranney, Christnakuler Attending Unavailable Ranney, Christopher Primary Care Unavailable Ranney, Christopher Referring Unavailable Sumaya Luo Attending Unavailable Ranney, Christopher Primary Care Unavailable May Bowles Attending Unavailable Ranney, Christopher Primary Care Unavailable Ranney, Christopher Referring Unavailable Teddy Anaya Attending Unavailable Ranney, Christopher Primary Care Unavailable Teddy Anaya Attending Unavailable Ranney, Christopher Primary Care Unavailable Ranney, Christopher Referring Unavailable Mane Solares Attending Unavailable Ranney, Christopher Primary Care Unavailable Ranney, Christopher Referring Unavailable Suzi Dye [facility]ending [facility] Unavailable Sajan Rowley Referring Unavailable Lolly Villasenor Attending [facility]available [facility] Care Unavailable Sajan Rowley Referring Unavailable Mane Solares [facility] Unavailable Rantomas, Sajan Referring Unavailable Noel Newsome Attending Unavailable [facility] Primary Care Unavailable Suzi Dye Referring Unavailable Suzi Dye Attending [facility]available [facility] Unavailable Sajan Rowley Referring Unavailable Sajan Rowley Attending [facility] Unavailable Mane Solares Referring Unavailable Mane Solares Attending [facility] Unavailable Sajan Rowley Referring Unavailable Sajan Rowley Attending Unavailable Allergies Allergy Classification Reported Allergen(s) Allergy Type Date of Onset Reaction(s) Facility (18 sources) atorvastatin; Translations: [atorvastatin calcium] Drug Allergy 06-25-2021 [facility] (17 sources) ezetimibe Drug Allergy 06-25-2021 [facility] (18 sources) rosuvastatin; Translations: [rosuvastatin calcium] Drug Allergy 06-25-2021 [facility] (1 source) ezetimibe Drug Allergy 05-08-2025 [facility] Repository Medications Current Medications Medication Drug Class(es) Dates Sig (Normalized) Sig (Original) acetaminophen 325 mg / HYDROcodone bitartrate 5 mg oral tablet (20 sources) Opioid Agonist Start: 04-23-2025 take 1 tablet by mouth every six hours as needed for pain Start: 02-18-2025 Start: 10-21-2015 End: 10-26-2015 Hydrocodone-Acetaminophen [...] 2015 11:01am allopurinol 300 mg oral tablet (18 sources) Xanthine Oxidase Inhibitor Start: 09-05-2015 take [...] ascorbic acid 226 mg / beta carotene 62505 unt / cuprous oxide 0.8 mg / dl-alpha tocopheryl acetate 200 unt / zinc oxide 34.8 mg oral capsule (3 sources) Vitamin C Start: 02-23-2023 aspirin 81 mg [...] 27, 2018 12:00am January 01, 2019 3:42pm cephalexin 500 mg oral capsule (2 sources) Cephalosporin Antibacterial Start: 04-27-2025 End: 05-04-2025 take 1 capsule by mouth twice daily Cephalexin 500 mg capsule Discontinued 500 mg PO TWICE A DAY 14 7 0 April 27, 2025 12:00am May 03, 2025 12:00am May 04, 2025 12:10am cholecalciferol 0.025 mg oral capsule (20 sources) Vitamin D Start: 07-28-2022 take 1 capsule by mouth once daily Start: 07-28-2022 take 50 ug by mouth once daily Cholecalciferol (Vitamin D3) Active 50 MCG PO DAILY July 28, 2022 4:08pm Start: 06-16-2020 End: 07-28-2022 take 1 capsule by mouth once daily Cholecalciferol (Vitamin D3) 25 mcg (1,000 unit) capsule Discontinued 25 ug PO DAILY June 16, 2020 1:00am July 28, 2022 4:09pm gemfibrozil 600 mg oral tablet (18 sources) Peroxisome Proliferator Receptor alpha Agonist Start: [...] 10:38am levothyroxine sodium 0.05 mg oral tablet (18 sources) l-Thyroxine Start: 01-08-2021 take 1 tablet by mouth once daily lisinopril 40 mg oral tablet (20 sources) Angiotensin Converting Enzyme Inhibitor Start: 07-05-2021 take 1 tablet by mouth once daily Lisinopril Active 0 .ROUTE .COMPLEX July 05, 2021 10:00am Take 1 tablet by mouth once daily Start: 07-05-2021 take 1 tablet by prieto th once daily Lisinopril Active 0 .ROUTE .COMPLEX July 05, 2021 9:00am Take 1 tablet by mouth once daily Start: 06-10-2019 End: 07-05-2021 take 1 tablet by mouth once daily Lisinopril 40 mg tablet Discontinued 40 mg PO DAILY June 16, 2020 11:18am July 05, 2021 [...] 10:37am mirtazapine 15 mg oral table t (4 sources) Start: 02-18-2025 take 1 tablet by prieto th at bedtime [place] 4-Mxn-Ybr-Fish Oil (Fi sh Oil) 1,200 (144-216) mg capsule (7 sources) Start: 01-06-2024 Start: 01-06-2024 [place] 3-Dha-Ep a-Fish Oil (Fish Oil) 1,200 (144-216) mg capsule Active 2 NMA PO DAILY January 06, 2024 12:00am pantoprazole 40 mg delayed release oral tablet (17 sources) Proton Pump Inhibitor Start: 10-21-2015 take 1 tablet by mouth once daily pregabalin 50 mg oral capsule (5 sources) Start: 02-05-2025 take 1 capsule by mouth three times daily vitamin b12 1 mg oral capsule (17 sources) Vitamin B12 Start: 06-16-2020 take 3 capsules by mouth once daily Start: 06-16-2020 take 1000 ug by mout once daily Cyanocobalamin (Vitamin B-12) Active 1000 MCG PO DAILY June 16, 2020 1:00am Vitamins A,C,J-Xkdn-Lqysim (Preservision Areds) 4,296 mcg-226 mg-90 mg capsule (9 sources) Start: 02-23-2023 Vitamins A,C,E -Zinc-Copper (Preservision Areds) 4,296 mcg-226 mg-90 mg capsule Active 1 NMA PO TWICE A DAY February 23, 2023 12:00am Start: 02-23-2023 take 1 capsule by [place] twice daily Vitamins A,C,V-Orxk-Qlgcql (Preservision Areds) 4,296 mcg-226 mg-90 mg capsule Active 1 CAP PO TWICE A DAY February 22, 2023 11:00pm Start: 02-23-2023 take 1 capsule by [place] twice daily Vitamins A,C,Z-Hika-Dbiyuu (Preservision Areds) 4,296 mcg-226 mg-90 mg capsule [...] 2018 10:38am cefadroxil 500 mg oral capsule (17 sources) Cephalosporin Antibacterial Start: 01-01-2019 End: 03-20-2019 take 1 capsule by mouth twice daily Cefadroxil 500 MG capsule Discontinued 500 mg PO TWICE A DAY 06 08January 01, 2019 12:00am March 20, 2019 9:38am clindamycin 300 mg oral capsule (17 sources) Lincosamide Antibacterial Start: 01-28-2019 End: 03-20-2019 take 1 capsule by mouth three times daily Clindamycin Hcl (Cleocin Hcl) 300 mg capsule Discontinued 300 mg PO THREE TIMES A DAY January 28, 2019 12:00am March 20, 2019 [...] 2022 11:13am furosemide 40 mg oral tablet (17 sources) Loop Diuretic Start: 01-12-2021 End: 05-26-2021 take 1 tablet by mouth once daily Furosemide 40 mg tablet Discontinued 40 mg PO DAILY 30 January 12, 2021 12:00am May 26, 2021 10:05am gabapentin 800 mg oral tablet (18 sources) Anti-epilepti c Agent Start: 06-25-2021 End: 02-05-2025 take 1 tablet by mouth three times daily Gabapentin 800 mg tablet Discontinued 800 mg PO THREE TIMES A DAY June 25, 2021 1:00am February 05, 2025 1:09pm hydroCHLOROthiazide 12.5 mg oral capsule (17 sources) Thiazide Diuretic Start: 10-21-2015 End: 05-22-2018 [...] 10:02am Lactobac Acidoph-Fructooligo s 1 EACH tablet (7 sources) Start: 01-01-2019 End: 01-28-2019 Lactobac Acidoph-Fructooligo s 1 EACH tablet Discontinued 1 NMA PO TWICE A DAY 30 0 January 01, 2019 12:00am January 28, 2019 [...] tablet Discontinued 500 mg PO DAILY 30 February 08, 2019 12:00am March 09, 2019 [...] scontinued 25 MG PO TWICE A DAY 90 July 12, 2018 6:09pm December 27, 2018 12:43pm Start: 10-21-2015 End: 07-12-2018 take 1 tablet by mouth twice daily Metoprolol Tartrate 25 mg tablet Discontinued 25 mg PO TWICE A DAY 180 June 11, 2018 3:30pm July 12, 2018 6:10pm Mohawk-3 Fatty Acids (Fish Oil Concentrate) 1,000 mg capsule (20 sources) Start: 07-28-2022 End: 01-06-2024 take 1 capsule by mouth twice daily Mohawk-3 Fatty Acids (Fish Oil Concentrate) 1,000 mg capsule Discontinued 1000 mg PO TWICE A DAY July 28, 2022 4:08pm January 06, 2024 11:18pm Start: 07-28-2022 take 1 capsule by [place] twice daily Mohawk-3 Fatty Acids (Fish Oil Concentrate) 1,000 mg capsule Active 1000 MG PO TWICE A DAY July 28, 2022 4:08pm Start: 07-28-2022 take 1 capsule by [place] twice daily Mohawk-3 Fatty Acids (Fish Oil Concentrate) 1,000 mg capsule Active 1000 MG PO TWICE A DAY July 28, 2022 3:08pm Start: 06-16-2020 End: 07-28-2022 Mohawk-3 Fatty Acids (Fish Oi l Concentrate) 1,000 mg capsule Discontinued 2000 mg PO TWICE A DAY June 16, 2020 1:00am July 28, 2022 4:09pm Start: 06-16-2020 End: 07-28-2022 Mohawk-3 Fatty Acids (Fish Oi l Concentrate) 1,000 mg capsule Discontinued 2000 MG PO TWICE A DAY June 16, 2020 1:00am July 28, 2022 4:09pm Start: 06-16-2020 End: 07-28-2022 Mohawk-3 Fatty Acids (Fish Oi l Concentrate) 1,000 mg capsule Discontinued 2000 MG PO TWICE A DAY June 16, 2020 12:00am July 28, 2022 3:09pm Start: 06-16-2020 Mohawk-3 Fatty Acids (Fish Oil Concentrate) 1,000 mg [...] 2019 9:11am rOPINIRole 0.5 mg oral tablet (10 sources) Nonergot Dopamine Agonist Start: 06-29-2023 End: 07-27-2023 take 1 tablet by mouth at bedtime Ropinirole 0.5 mg tablet Discontinued 0.5 mg PO AT BEDTIME 30 June 29, 2023 1:00am July 27, 2023 12:12pm Problems Active Problems Problem Classification Problem Date Documented Date Episodic/Chronic Cardiac dysrhythmias (20 sources) Cardiac arrhythmia; Translations: [Cardiac arrhythmia, unspecified] 07-28-2022 Chronic Cardiac dysrhythmias (17 sources) Bradycardia; Translations: [Bradycardia, unspecified] 05-21-2019 Episodic Coronary atherosclerosis and other heart disease (19 sources) Coronary arteriosclerosis; Translations: [Atherosclerotic heart disease of [place] coronary artery without angina pectoris] Onset: 01-09-2014 Chronic Deficiency and other anemia (2 sources) Chronic anemia; Translations: [Anemia, unspecified] 05-01-2025 Episodic Diabetes mellitus with complications (9 sources) Type 2 diabetes mellitus; Translations: [Type 2 diabetes mellitus with other specified complication] Onset: 09-05-2024 Chronic Diabetes mellitus without complication (11 sources) Diabetes mellitus; Translations: [Type 2 diabetes mellitus without complications] Onset: 09-03-2021 09-03-2021 Chronic Disorders of lipid metabolism (20 sources) Hyperlipidemia; Translations: [Hyperlipidemia, unspecified] Onset: 12-31-2013 Chronic Essential hypertension (20 sources) Essential hypertension; Translations: [Essential (primary) hypertension] Onset: 12-31-2013 Chronic Fever of unknown origin (7 sources) Fever; Translations: [Fever, unspecified] 01-15-2024 Episodic Fluid and electrolyte disorders (4 sources) Dehydration; Translations: [Dehydration] 04-25-2025 Episodic Genitourinary symptoms and ill-defined conditions (1 source) Frequency of micturition; Translations: [Frequency of micturition] Onset: 05-05-2025 Episodic Melanomas of skin (17 sources) 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, including shoulder; Translations: [Melanoma in situ of left upper extremity] 05-17-2019 Chronic Melanomas of skin (19 sources) H/O Malignant melanoma; Translations: [Personal history [...] R ICA velocity 132.4 Other circulatory disease (13 sources) Carotid bruit; Translations: [Other specified symptoms and signs involving the circulatory and respiratory systems] 10-14-2024 Episodic Other connective tissue disease (2 sources) H/O: gout; Translations: [Personal history of other diseases of the musculoskeletal system and connective tissue] Onset: 09-03-2021 Episodic Other diseases of kidney and ureters (2 sources) Renal impairment; Translations: [Disorder of kidney and ureter, unspecified] 05-01-2025 Episodic Other eye disorders (1 source) Fourth nerve palsy; 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, right eye] Episodic Other fractures (2 sources) Compression fracture of lumbar spine; Translations: [Wedge compression fracture of first lumbar vertebra, initial encounter for closed fracture] 05-01-2025 Episodic Other fractures (1 source) Wedge compression fracture of first lumbar vertebra, initial encounter for closed fracture; Translations: [Wedge compression fracture of first lumbar vertebra, initial encounter for closed fracture] Onset: 05-08-2025 Episodic Other hereditary and degenerative nervous system conditions (7 sources) Restless legs; Translations: [Restless legs syndrome] 10-31-2023 Chronic Other lower respiratory disease (17 sources) Dyspnea; Translations: [Dyspnea, unspecified] 01-27-2021 Episodic Other lower respiratory disease (2 sources) Dyspnea, unspecified; Translations: [Other respiratory abnormalities] 07-19-2022 Episodic Other lower respiratory disease (7 sources) Hypoxia; Translations: [Hypoxemia] 01-15-2024 Episodic Other nervous system disorders (19 sources) Polyneuropathy; Translations: [Polyneuropathy, unspecified] 10-13-2022 Chronic Other nervous system disorders (3 sources) Polyneuropathy, unspecified; Translations: [Unspecified hereditary and idiopathic peripheral neuropathy] 10-13-2022 Chronic Other screening for suspected conditions (not mental disorders or infectious disease) (20 sources) Patient encounter status; Translations: [Encounter for screening for malignant neoplasm of colon] 05-17-2019 Episodic Pancreatic disorders (not diabetes) (17 sources) Acute pancreatitis; Translations: [Acute pancreatitis without necrosis or infection, unspecified] 01-08-2021 Episodic Peripheral and visceral atherosclerosis (20 sources) Peripheral vascular disease, unspecified; Translations: [Peripheral arterial disease] 10-13-2022 Chronic Residual codes; unclassified (13 sources) Family history of aneurysm of artery; [...] history of nicotine dependence] Onset: 09-03-2021 Episodic Spondylosis; intervertebral disc disorders; other back problems (1 source) Dorsalgia, unspecified; Translations: [Dorsalgia, unspecified] Onset: 05-08-2025 Episodic Thyroid disorders (2 sources) Hypothyroidism; Translations: [Hypothyroidism, unspecified] Onset: 09-03-2021 Chronic Unclassified (1 source) Unknown / UNK(Unknown) Onset: 10-29-2015 Unclassified (8 sources) Stenosis of carotid artery; Translations: [I65.29 - Occlusion and stenosis of unspecified carotid artery] Viral infection (20 sources) Herpes labialis; Translations: [Herpesviral vesicular dermatitis] 08-06-2023 Episodic Past or Other Problems Problem Classification Problem Date Documented Da te Episodic/Chronic Coronary atherosclerosis and other heart disease (5 sources) Presence of aortocoronary bypass graft; Translations: [Aortocoronary bypass status] Onset: 01-03-2014 07-28-2022 Episodic Malaise and fatigue (5 sources) Asthenia; Translations: [Weakness] Onset: 12-26-2024 05-01-2025 Episodic Other circulatory disease (1 source) Other specified symptoms and signs involving the circulatory and respiratory systems; Translations: [Other specified symptoms and signs involving the circulatory and respiratory systems] Onset: 10-31-2024 Episodic Results Test Name Value Interpretation Reference Range Facility Lumbar Spine 2 or 3 Viewson 05-08-2025 Lumbar Spine 2 or 3 Views [facility] [address] [place] [address] [id number] Lumbar Spine 2 or 3 Views MR#: [id number] Acct: [id number] Name: GIA VIRAMONTES Rep #: [id number] : 1940 M 84 From: Susan William PCP: Dr. Sajan Rowley MD Status: DEP AMB Study: Lumbar Spine 2 or 3 Views Date of Exam: Exam# [id number] Ordering Dr: Sumaya Luo PROCEDURE: LUMBAR SPINE 2 OR 3 VIEWS 05/08/2025 REASON FOR EXAM: FRACTURE FOLLOW UP TECHNIQUE: Procedure Code: RADSPLL Modality: DX Procedure: LUMBAR SPINE 2 OR 3 VIEWS COMPARISON: Lumbar spine study dated 04/23/2025 FINDINGS: Vertebrae: Bony demineralization of the thoracic spine and sacrum are noted. No sacral fractures are noted. Very mild osteoarthritic changes are seen involving the SI joints bilaterally. There is a levoscoliosis of the lumbar spine and kyphotic curvature of the thoracolumbar junction. There are 5 lumbar-type vertebral bodies below the last set paired ribs. Again noted is a compression fracture involving the anterior aspect of the L1 vertebral body by approximately 60%. The previous report described minimal bi concave compression of L2 and L3. The L2 through L5 vertebral bodies appear unremarkable on today's study. MRI examination may be of further value for further evaluation if clinically indicated. Mild spondylosis of the lumbar spine is noted. There is no spondylolisthesis. There is slight narrowing of all of the intervertebral disc spaces. Paravertebral soft tissue structures are grossly unremarkable. RAD/Lumbar Spine 2 or 3 Views IMPRESSION: Compression fracture of the L1 vertebral body by approximately 60% which is similar when compared to the prior study. 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 An MRI of the lumbar spine may be of value in this patient who has abnormal plain film findings. This could further evaluate the vertebral bodies, disc spaces and nerve roots if clinically warranted It may be of value to have an MR examination for further evaluation of the disc spaces, nerve roots and vertebral bodies in this patient who has abnormal plain film findings. Reading Location: [id number] CC: ANUSHA Yan; Dr. Sajan Rowley MD Civil Drafter: Signed Normal [facility] Orthopedic Visit Reporton Orthopedic Visit Report [facility] [address] [place] [address] OFFICE VISIT Date of Service: 05/08/25 MR#: [id number] Acct: [id number] Name: GIA VIRAMONTES SACHI Rep #: [id number] : 1940 Provider: ANUSHA Yan Age/Sex: 84/M Location: [facility] Status: Signed Intake Vital Signs 04/23/25 09:23 05/08/25 15:25 Height 6 ft 6 ft Weight: 179 lb 4 oz BMI 24.3 Intake Visit Reasons: LUMBAR SPINE Accompanied by: Son Is patient in pain?: Yes Pain scale (1-10): 7 Allergies atorvastatin calcium (From Lipitor) Adverse Reaction (Verified 05/08/25 15:25) body aches ezetimibe (From Zetia) Adverse Reaction (Verified 05/08/25 15:25) body aches rosuvastatin calcium (From Crestor) Adverse Reaction (Verified 05/08/25 15:25) body aches Medications ???Medication ???Instructions ???Recorded ???Confirmed ???Type gemfibrozil 600 mg tablet 600 mg PO BID cholesterol 01/01/14 05/08/25 History allopurinol 300 mg tablet 300 mg PO DAILY GOUT 10/21/15 10/ History pantoprazole 40 mg tablet,delayed 40 mg PO DAILY reflux 10/21/15 History release amlodipine 10 mg tablet 10 mg PO DAILY BP 05/21/19 5 History aspirin 81 mg tablet,delayed 81 mg PO DAILY 06/03/19 05/08/25 H istory release (Adult Aspirin Regimen) cyanocobalamin (vitamin B-12) 3,000 mcg PO DAILY 06/16/20 History 1,000 mcg capsule levothyroxine 50 mcg tablet 50 mcg PO DAILY THYROID 01/08/21 1 History lisinopril 40 mg tablet See Rx Instructions .Route 1 05/08/25 Rx .COMPLEX #90 tabs cholecalciferol (vitamin D3) 25 100 mcg PO DAILY 07/28/22 05/08/25 History mcg (1,000 unit) capsule glimepiride 4 mg tablet 4 mg PO DAILY 07/28/22 05/08/25 Hi story vitamins A,C,U-amoh-zmfyzb 4,296 1 cap PO BID 02/23/23 05/08/25 His tory mcg-226 mg-90 mg capsule (PreserVision AREDS) omega 6-inq-vme-fish oil 1,200 mg 2 cap PO DAILY 01/06/24 05/08/25 History (144 mg-216 mg) capsule (Fish Oil) pregabalin 50 mg capsule 50 mg PO TID 02/05/25 05/08/25 His tory duloxetine 60 mg capsule,delayed 60 mg PO QHS #90 caps 02/18/25 Rx release hydrocodone-acetamin ophen 5-325mg 1 tab PO QD-TID PRN pain 02/18/25 05/08/25 History 5mg-325mg mirtazapine 15 mg tablet 15 mg PO QHS 02/18/25 05/08/25 His tory hydrocodone-acetamin ophen 5-325mg 1 tab PO Q6H PRN PRN Pain 3 days 04/23/25 05/08/25 Rx 5mg-325mg #10 TABLETS cyclobenzaprine 5 mg tablet 5 mg PO QHS PRN muscle spasm #30 1 05/08/25 Rx tabs Have you fallen in the past year?: Yes PFSH Medical History Hyperlipemia Peripheral arterial disease Hypertension Abnormal nuclear stress test Type 2 diabetes mellitus Family history of cerebral aneurysm Polyneuropathy Dysrhythmia, cardiac Hypothyroidism Stenosis of right carotid artery Essential (primary) hypertension Atherosclerosis of coronary artery of [place] heart without angina pectoris Personal history of [...] cholesterol Mother Arthritis Heart disease Social History household members: spouse Smoking Status: Former smoker Tobacco: How many years used: 8 how long ago did patient quit smokin years ago second hand exposure: No alcohol intake: never substance use type: does not use caffeine: Yes Type: coffee Number of servings: 2 nadine/synagogue: [employer] seatbelt use: always additional social history: DOES NOT USE IBUPROFEN HPI LUMBAR SPINE Details: This documentation accurately reflects the service provided and the decisions made by me, ANUSHA Yan 05/08/25 1524. Part of today???s visit was documented by Alberta SORIA, acting as scribe. GIA VIRAMONTES is a 84 year old M here today for low back pain. He states that his pain started 1 month ago when he fell. He states that he does have pain in his lower back but also has pain going up into his upper back. He denies having any leg pain. He has a history of neuropathy in his feet, he says that the hydrocodone hel (more content not included)... Normal [facility] Thoracic Spine 2 Viewson Thoracic Spine 2 Views [facility] Imaging Services [address] [place] [address] Thoracic Spine 2 Views MR#: [id number] Acct: [id number] Name: GIA VIRAMONTES Rep #: [id number] : 1940 M 84 From: Susan William PCP: Dr. Sajan Rowley MD Status: DEP AMB Study: Thoracic Spine 2 Views Date of Exam: 05/08/25 Exam# [id number] Ordering Dr: Sumaya Luo PROCEDURE: THORACIC SPINE 2 VIEWS 05/08/2025 REASON FOR EXAM: PAIN, FX L1 TECHNIQUE: Procedure Code: RADSPT2 Modality: DX Procedure: THORACIC SPINE 2 VIEWS COMPARISON: Lumbar spine studies dated 05/08/2025 and 04/23/2025. Chest x-ray study dated 01/07/2024 was also reviewed. FINDINGS: Vertebrae: Bony demineralization of the thoracic spine and upper lumbar spine is noted. Increased kyphotic curvature of the thoracic spine is noted. There is a dextroscoliosis of the thoracic spine. There are decreased heights of the T5, T6 and T7 vertebral bodies by approximately 3-5%. This these are probably related to osteoporotic compression fractures. The age of which is indeterminate. There is a compression fracture of the L1 vertebral body with a decrease in height by approximately 60%. Moderate to significant spondylosis of the thoracic spine is noted. There are anterior osteophytes off of the T8, T9 and T10 levels. Degenerative disc disease is seen involving the upper and midthoracic discs. There is no spondylolisthesis of the thoracic spine. RAD/Thoracic Spine 2 Views IMPRESSION: Bony demineralization of the thoracic spine and upper lumbar spine is noted. Fractures of the T5, T6, T7 and L1 vertebral bodies is noted as described above. Spondylosis of the thoracic spine. Dextroscoliosis of the thoracic spine. 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 MRI of the thoracic spine may be of value for further evaluation of the vertebral bodies, disc spaces and nerve roots in this patient who has abnormal plain film findings and thoracic spine pain. Reading Location: [facility] CC: ANUSHA Yan; Dr. Sajan Rowley MD Civil Drafter: Signed Normal [facility] Urine Cultureon 04-27-2025 URC Klebsiella pneumoniae sp pneum [place] Count 11,000-25,000 Klebsiella pneumoniae sp pneum: REACTION Ampicillin Islt SHANTELL >=32 Ampicillin+Sulbac Islt SHANTELL 16 I Cefepime Islt SHANTELL <=0.12 S cefTRIAXone Islt SHANTELL <=0.25 S Ciprofloxacin Islt SHANTELL <=0.06 S B-Lactamase Extended Susc Islt NEG Gentamicin Islt SHANTELL <=1 S levoFLOXacin Islt SHANTELL <=0.12 S Meropenem Islt SHANTELL <=0.25 S Nitrofurantoin Islt SHANTELL 64 I Pip+Tazo Islt SHANTELL <=4 S TMP SMX Islt SHANTELL <=20 S Normal [facility] Comment on above: Performed By: #### M 100.2200 ####[facility] [id number] [place], [place], [address] Laboratory - Chemistry and C hemistry - challengeOrdered By: Noel Gregg on 04-25-2025 Bilirubin Ql (U) Negative [facility] Glucose Ql (U) Negative [facility] Ketones Ql (U) Negative [facility] pH (U) 6.0 [pH] [facility] Specific gravity (U) [Rel density] 1.025 [facility] Urobilinogen (U) [Mass/Vol] Negative [facility] Laboratory - Hematology and Cell countsOrdered By: Noel Gregg on 04-25-2025 Hemoglobin Ql (U) Negative [facility] Laboratory - Specimen inform ationOrdered By: Noel Gregg on 04-25-2025 Clarity (U) Clear [facility] Color (U) Dk Yellow [facility] Laboratory - UrinalysisOrder ed By: Noel Gregg on 04-25-2025 Nitrite Ql (U) Negative [facility] Protein Ql (U) Trace [facility] No Panel InformationOrdered By: Noel Gregg on 04-25-2025 Urine Leukocytes Negatve [facility] Urine Non-Hemolyzed Blood Negative [facility] Urgent Care Visit Reporton 1 Urgent Care Visit Report [facility] [address], [address] [place] [address] OFFICE VISIT Date of Service: 04/25/25 MR#: [id number] Acct: [id number] Name: GIA VIRAMONTES Rep #: [id number] : 1940 Provider: ANUSHA Jacob Age/Sex: 84/M Location: [facility] Status: Signed Intake Vital Signs 04/23/25 09:23 04/25/25 15:12 Height 6 ft BP 156/66 H Blood Pressure Location Lt brachial Position Sitting Respiration 16 Pulse 48 L Pulse Source NIBP Temp 98.7 F Temp Source Oral Pulse Oximetry (%) 96 Oxygen Delivery Method room air Intake Visit Reasons: CONCERN FOR UTI Chief Complaint: confusion, weak, decreased urinary output [employer] Technician Required: No Is patient in pain?: No Allergies atorvastatin calcium (From Lipitor) Adverse Reaction (Verified 04/25/25 15:12) body aches ezetimibe (From Zetia) Adverse Reaction (Verified 04/25/25 15:12) body aches rosuvastatin calcium (From Crestor) Adverse Reaction (Verified 04/25/25 15:12) body aches Have you fallen in the past year?: Yes Nurse's Note: confusion, weak, decreased urinary output x 1 week. occasional abd pain/back pain. denies blood, fever. concern for UTI. pt HR 48, pt states typically higher--reported to [facility]. [facility] Medical History Hyperlipemia Peripheral arterial disease Hypertension Abnormal nuclear stress test Type 2 diabetes mellitus Family history of cerebral aneurysm Polyneuropathy Dysrhythmia, cardiac Hypothyroidism Stenosis of right carotid artery Essential (primary) hypertension Atherosclerosis of coronary artery of [place] heart without angina pectoris Personal history of [...] cholesterol Mother Arthritis Heart disease Social History household members: spouse Smoking Status: Former smoker Tobacco: How many years used: 8 how long ago did patient quit smokin years ago second hand exposure: No alcohol intake: never substance use type: does not use caffeine: Yes Type: coffee Number of servings: 2 nadine/synagogue: [employer] seatbelt use: always additional social history: DOES NOT USE IBUPROFEN HPI HPI Chief Complaint: confusion, weak, decreased urinary output Details: GIA VIRAMONTES, is a 84 M who presents to the office today for complaint of confusion, weakness, decreased urinary output for the past 2 weeks. Patient states he has had increased falls over the past several weeks as well. Patient does bring in his son-in-law with him today who is concern for possible UTI. Patient denies dysuria, hematuria or loss of bladder control. No fever, chills, sweats. No nausea, vomiting, diarrhea. Son-in-law does state that the patient has not been hydrating as well as the family believes he should. No other associated symptoms or alleviating/aggravat ing factors. ROS Const Constitutional: Positive for other (ROS negative x6 except what was placed in HPI) Exam Const General: cooperative and healthy appearing Resp Effort Inspection: normal respiratory effort Auscultation: Bilateral: Clear to Auscultation Cardio Rate: bradycardic Rhythm: abnormal rhythm irregularly irregular GI Auscultation: normal bowel sounds General: No CVA tenderness Psych Appearance: grossly normal Mental Status: mental status grossly normal Results POC Urinalysis Dip (Clinic) Office Urine Color Dk Yellow Last Edit by Marilee Lee on 04/25/25 15:19 Office Urine Clarity Clear Last Edit by Marilee Lee on 04/25/25 15:19 Office Urine Glucose Negative Last Edit by Marilee Lee on 04/25/25 15:19 Office Urine Ketones Negative Last Edit by Marilee Lee on 04/25/25 15:19 Off Ur Spec Galien 1.025 Last Edit by Marilee Lee on 04/25/25 15:19 Office Urine pH 6.0 Last Edit by Marilee Lee on 04/25/25 15:19 Office Urine Bilirubin Negative Last Edit by Marilee Lee on 04/25/25 15:19 Office Urine Urobilinogen Negative Last Edit by Marilee Lee on 04/25/25 15:19 Office Urine Blood Negative Last Edit by Marilee Lee on 04/25/25 15:19 Office Uri (more content not included)... Normal [facility] Urine cultureOrdered By: Javon Gregg on 04-25-2025 Bacteria identified Cx Nom (U) Klebsiella pneumoniae sp pneum Abnormal [facility] Absolute lymphocyte countOrd ered By: Nick Hughes on 04-23-2025 Lymphocytes Auto (Unsp spec) [#/Vol] 1.86 10*3/uL 0.83-4.51 [facility] Absolute neutrophil countOrd ered By: Nick Hughes on 04-23-2025 Neutrophils (Bld) [#/Vol] 4.3 10*3/uL 2.0-7.7 [facility] Anion gap in Serum or Plasma Ordered By: Nick Hughes on 04-23-2025 Anion gap [Moles/Vol] 12 mmol/L 11-21 [facility] Automated lymphocyte count a s percentage of total leukocytesOrdered By: Nick Hughes on 04-23-2025 Lymphocytes/100 WBC Auto (Unsp spec) 25.3 % - [facility] BUN/creatinine ratioOrdered By: Nick Hughes on 04-23-2025 Urea nitrogen/Creatinine [Mass ratio] 28.8 mg/mg High - [facility] Basophil percentageOrdered B y: Nick Hughes on 04-23-2025 Basophils/100 WBC (Bld) 0.5 % 0-1 [facility] Bilirubin, totalOrdered By: Nick Hughes on 04-23-2025 Bilirubin [Mass/Vol] 0.23 mg/dL 0.00-1.30 [facility] CBC W/Diff, Automatedon 10-07 14-2024 Absolute Lymph 1.86 X10 3/uL Normal 0.83-4.51 [facility] Comment on above: Performed By: #### L 100.0100, L500.4050 #### [facility] Laboratory [address] [place], [address] Absolute Neut 4.3 X10 3/uL Normal 2.0-7.7 [facility] Comment on above: Performed By: #### L 100.0100, L500.4050 #### [facility] Laboratory [address] [place], [address] Basophils/100 WBC (Bld) 0.5 % Normal 0-1 [facility] Comment on above: Performed By: #### L 100.0100, L500.4050 #### [facility] Laboratory [address] [place], [address] Eosinophils/100 WBC (Bld) 6.0 % High 0-5 [facility] Comment on above: Performed By: #### L 100.0100, L500.4050 #### [facility] Laboratory [address] [place], [address] Erythrocyte distribution width (RBC) [Ratio] 15.9 % High 11.6-14.6 [facility] Comment on above: Performed By: #### L 100.0100, L500.4050 #### [facility] Laboratory [address] [place], [address] Hematocrit (Bld) [Volume fraction] 36.5 % Low 40-54 [facility] Comment on above: Performed By: #### L 100.0100, L500.4050 #### [facility] Laboratory [address] [place], [address] Hemoglobin (Bld) [Mass/Vol] 11.9 g/dL Low 13.0-16.5 [facility] Comment on above: Performed By: #### L 100.0100, L500.4050 #### [facility] Laboratory [address] [place], [address] IG% 0.400 Normal 0.0-0.9 [facility] Comment on above: Result Comment: IG% - Immature Granulocytes (promyelocytes, myelocytes and metamyelocytes) > 1% indicates that a LEFT SHIFT is Present. Performed By: #### L 100.0100, L500.4050 #### [facility] Laboratory [address] [place], [address] Lymphocytes/100 WBC (Bld) 25.3 % Normal 19-41 [facility] Comment on above: Performed By: #### L 100.0100, L500.4050 #### [facility] Laboratory [address] [place], [address] MCH (RBC) [Entitic mass] 29.8 pg Normal 27.0-32.0 [facility] Comment on above: Performed By: #### L 100.0100, L500.4050 #### [facility] Laboratory [address] [place], [address] MCHC (RBC) [Mass/Vol] 32.6 g/dL Normal 32-36 [facility] Comment on above: Performed By: #### L 100.0100, L500.4050 #### [facility] Laboratory [address] [place], [address] MCV (RBC) [Entitic vol] 91.5 fL Normal 80-94 [facility] Comment on above: Performed By: #### L 100.0100, L500.4050 #### [facility] [address] [place], [address] Monocytes/100 WBC (Bld) 9.9 % Normal 0-10 [facility] Comment on above: Performed By: #### L 100.0100, L500.4050 #### [facility] Laboratory [address] [place], [address] Neutrophils/100 WBC (Bld) 57.9 % Normal 47-70 [facility] Comment on above: Performed By: #### L 100.0100, L500.4050 #### [facility] Laboratory [address] [place], [address] Nucleated RBC (Bld) [#/Vol] 0 10*3/uL Normal 0-5 [facility] Comment on above: Performed By: #### L 100.0100, L500.4050 #### [facility] Laboratory [address] [place], [address] Platelet mean volume (Bld) [Entitic vol] 10.7 fL Normal 6.2-12.0 [facility] Comment on above: Performed By: #### L 100.0100, L500.4050 #### [facility] Laboratory [address] [place], [address] Platelets (Bld) [#/Vol] 209 10*3/uL Normal 150-450 [facility] Comment on above: Performed By: #### L 100.0100, L500.4050 #### [facility] Laboratory [address] [place], [address] RBC (Bld) [#/Vol] 3.99 10*6/uL Low 4.6-6.2 [facility] Comment on above: Performed By: #### L 100.0100, L500.4050 #### [facility] Laboratory [address] [place], [address] RDW SD 51.8 fl High 35.1-43.9 [facility] Comment on above: Performed By: #### L 100.0100, L500.4050 #### [facility] Laboratory [address] [place], [address] WBC (Bld) [#/Vol] 7.4 10*3/uL Normal 4.4-11.0 [facility] Comment on above: Performed By: #### L 100.0100, L500.4050 #### [facility] Laboratory [address] [place], [address] Carbon dioxide, total [Moles /volume] in Central venous bloodOrdered By: Nick Hughes on 04-23-2025 CO2 [Moles/Vol] 16.3 mmol/L Low 21.0-32.0 [facility] Chloride assayOrdered By: Ug o Hughes on 04-23-2025 Chloride [Moles/Vol] 115 mmol/L High 98-108 [facility] Comprehensive Metabolic Prof ilon 04-23-2025 Albumin [Mass/Vol] 3.6 g/dL Normal 3.4-4.8 [facility] Comment on above: Performed By: #### L 100.0100, L500.4050 #### [facility] Laboratory [address] [place], [address] Albumin/Globulin [Mass ratio] 1.2 {ratio} Normal 0.9-2.4 [facility] Comment on above: Performed By: #### L 100.0100, L500.4050 #### [facility] Laboratory [address] [place], [address] ALK PHOS 169 U/L High 40-129 [facility] Comment on above: Performed By: #### L 100.0100, L500.4050 #### [facility] Laboratory [address] [place], [address] ALT [Catalytic activity/Vol] 14 U/L Normal <=46 [facility] Comment on above: Performed By: #### L 100.0100, L500.4050 #### [facility] Laboratory [address] [place], [address] AST [Catalytic activity/Vol] 24 U/L Normal <=37 [facility] Comment on above: Performed By: #### L 100.0100, L500.4050 #### [facility] Laboratory [address] [place], [address] Bilirubin [Mass/Vol] 0.23 mg/dL Normal 0.00-1.30 [facility] Comment on above: Performed By: #### L 100.0100, L500.4050 #### [facility] Laboratory [address] [place], [address] BUN/CRE 28.8 RATIO High 10-20 [facility] Comment on above: Performed By: #### L 100.0100, L500.4050 #### [facility] Laboratory [address] [place], [address] Calcium [Mass/Vol] 9.3 mg/dL Normal 7.6-11.0 [facility] Comment on above: Performed By: #### L 100.0100, L500.4050 #### [facility] Laboratory [address] [place], [address] Chloride [Moles/Vol] 115 mmol/L High 98-108 [facility] Comment on above: Performed By: #### L 100.0100, L500.4050 #### [facility] Laboratory [address] [place], [address] CO2 [Moles/Vol] 16.3 mmol/L Low 21.0-32.0 [facility] Comment on above: Performed By: #### L 100.0100, L500.4050 #### [facility] Laboratory [address] [place], [address] Creatinine [Mass/Vol] 1.30 mg/dL High 0.70-1.20 [facility] Comment on above: Performed By: #### L 100.0100, L500.4050 #### [facility] Laboratory [address] [place], [address] ECRCL 47.26 ml/min Low 50-250 [facility] Comment on above: Performed By: #### L 100.0100, L500.4050 #### [facility] Laboratory [address] [place], [address] GAP 12 Normal 5-15 [facility] Comment on above: Performed By: #### L 100.0100, L500.4050 #### [facility] Laboratory [address] [place], [address] GFR/1.73 sq M.predicted among non-blacks MDRD (S/P/Bld) [Vol rate/Area] 55 mL/min/{1.73_m2} Low >60 [facility] Comment on above: Result Comment: mL/m in/1.73m2 CKD-EPI Creatinine Equation (2020) Performed By: #### L 100.0100, L500.4050 #### [facility] Laboratory [address] [place], [address] Globulin (S) [Mass/Vol] 3.1 g/dL Normal 2.2-4.2 [facility] Comment on above: Performed By: #### L 100.0100, L500.4050 #### [facility] Laboratory [address] [place], [address] Glucose [Mass/Vol] 151 mg/dL High 70-99 [facility] Comment on above: Performed By: #### L 100.0100, L500.4050 #### [facility] Laboratory [address] [place], [address] Potassium [Moles/Vol] 4.2 mmol/L Normal 3.3-5.1 [facility] Comment on above: Performed By: #### L 100.0100, L500.4050 #### [facility] Laboratory [address] [place], [address] Sodium [Moles/Vol] 143 mmol/L Normal 133-145 [facility] Comment on above: Performed By: #### L 100.0100, L500.4050 #### [facility] Laboratory [address] [place], [address] T PROT 6.7 g/dL Normal 5.9-8.4 [facility] Comment on above: Performed By: #### L 100.0100, L500.4050 #### [facility] Laboratory [address] [place], [address] Urea nitrogen [Mass/Vol] 37 mg/dL High 4-19 [facility] Comment on above: Performed By: #### L 100.0100, L500.4050 #### [facility] Laboratory [address] [place], [address] Emergency Department Summary on 04-23-2025 Emergency Department Summary [facility] Medical Records Department [address] [place] [address] Emergency Department Summary 04/23/25 MR#: [id number] Acct: [id number] Name: GIA VIRAMONTES Rep #: [id number] : 1940 84 From: Nick Hughes MD PCP: Dr. Sajan Rowley MD Status:REG ER Location: ED HPI History of Present Illness Chief Complaint: Back Detail of Chief Complaint: Onset after near fall 2 to 3 months ago. Also fatigue Informant: patient and family Onset/Context/Timing Onset: Month(s) Context: Sudden Onset Chronic pain [...] chills night sweats. Patient denies cough, dyspnea, Cuervo exertion, orthopnea or PND. Patient has no history of osteoporosis or osteopenia. [facility] similar symptoms: [facility] Medical History Hyperlipemia Peripheral arterial disease Hypertension Abnormal nuclear stress test Type 2 diabetes mellitus Family history of cerebral aneurysm Polyneuropathy Dysrhythmia, cardiac Hypothyroidism Stenosis of right carotid artery Essential (primary) hypertension Atherosclerosis of coronary artery of [place] heart without angina pectoris Personal history of [...] mg tablet 300 mg PO DAILY GOUT 10/21/1508/30 History pantoprazole 40 mg tablet,delayed 40 mg [...] PO DAILY 07/28/22 Unknown His tory vitamins A,C,F-bcsk-zeuwco 4,296 1 cap PO BID 02/23/23 Unknown Hist ory mcg-226 mg-90 mg capsule (PreserVision AREDS) omega 5-nvb-sal-fish oil 1,200 mg 2 cap PO DAILY 01/06/24 Unknown H istory (144 mg-216 mg) capsule (Fish Oil) pregabalin 50 mg capsule 50 mg PO TID 02/05/25 Unknown Hist ory duloxetine 60 mg capsule,delayed 60 mg PO QHS #90 caps 02/18/25 Unk nown Rx release hydrocodone-acetamin ophen 5-325mg 1 tab PO QD-TID PRN pain 02/18/25 Unknown History 5mg-325mg mirtazapine 15 mg tablet 15 mg PO QHS 02/18/25 Unknown Hist ory hydrocodone-acetamin ophen 5-325mg 1 tab PO Q6H PRN PRN [...] Arthritis Heart disease Surgical History ... Normal [facility] Eosinophil percentageOrdered By: Nick Hughes on 04-23-2025 Eosinophils/100 WBC (Bld) 6.0 % High 0-5 [facility] Erythrocyte distribution wid th ratioOrdered By: Nick Hughes on 04-23-2025 Erythrocyte distribution width (RBC) [Ratio] 15.9 % High 11.6-14.6 [facility] Erythrocyte distribution wid th standard deviationOrdered By: Nickclarisa Hughes on 04-23-2025 Erythrocyte distribution width (RBC) [Ratio] 51.8 fl High 35.1-43.9 [facility] Glomerular filtration rate ( GFR) estimation/1.73 sq m using serum, plasma, or whole bOrdered By: Nickclarisa Hughes on 04-23-2025 GFR/1.73 sq M.predicted among non-blacks MDRD (S/P/Bld) [Vol rate/Area] 55 mL/min/{1.73_m2} Low >60 [facility] Comment on above: mL/min/1.73m2 CKD-EP I Creatinine Equation (2020) Hematocrit Auto (Bld) [Volum e fraction]Ordered By: Nickclarisa Hughes on 04-23-2025 Hematocrit (Bld) [Volume fraction] 36.5 % Low 40-54 [facility] Hemoglobin measurementOrdere d By: Nickclarisa Hughes on 04-23-2025 Hemoglobin (Bld) [Mass/Vol] 11.9 g/dL Low 13.0-16.5 [facility] Immature granulocytes/100 WB C Auto (Bld)Ordered By: Nickclarisa Hughes on 04-23-2025 Immature granulocytes/100 WBC (Bld) 0.400 % 0.0-0.9 [facility] Comment on above: IG% - Immature Granu locytes (promyelocytes, myelocytes and metamyelocytes) > 1% indicates that a LEFT SHIFT is Present. Laboratory - Chemistry and C hemistry - challengeOrdered By: Nickclarisa Hughes on 04-23-2025 AST [Catalytic activity/Vol] 24 U/L <38 [facility] Lumbar Spine 2 or 3 Viewson 04-23-2025 Lumbar Spine 2 or 3 Views [facility] Imaging Services [address] [place] [address] Lumbar Spine 2 or 3 Views MR#: [id number] Acct: [id number] Name: GIA VIRAMONTES Rep #: [id number] : 1940 M 84 From: Mendez Dalal MD PCP: Dr. Sajan Rowley MD Status: REG ER Study: Lumbar Spine 2 or 3 Views Date of Exam: Exam# [id number] Ordering Dr: Nick Hughes MD PROCEDURE: LUMBAR [...] severe is L1, grade 3. Reading Location: [id number] CC: Dr. Sajan Rowley MD; Dr. Nick Hughes MD Civil Drafter: Signed Normal [facility] MCV (mean corpuscular volume ) determinationOrdered By: Nick Hughes on 04-23-2025 MCV (RBC) [Entitic vol] 91.5 fL 80-94 [facility] Mean corpuscular hemoglobin (MCH) determinationOrdered By: Nick Hughes on 04-23-2025 MCH (RBC) [Entitic mass] 29.8 pg 27.0-32.0 [facility] Mean corpuscular hemoglobin concentration (MCHC) determinationOrdered By: Nick Hughes on 04-23-2025 MCHC (RBC) [Mass/Vol] 32.6 g/dL 32-36 [facility] Mean platelet volume determi nationOrdered By: Nick Hughes on 04-23-2025 Platelet mean volume (Bld) [Entitic vol] 10.7 fL 6.2-12.0 [facility] Monocyte percentageOrdered B y: Nick Hughes on 04-23-2025 Monocytes/100 WBC (Bld) 9.9 % 0-10 [facility] Neutrophil percentageOrdered By: Nick Hughes on 04-23-2025 Neutrophils/100 WBC (Bld) 57.9 % 47-70 [facility] Nucleated red blood cell per centageOrdered By: Nick Hughes on 04-23-2025 Nucleated RBC/100 WBC (Bld) [Ratio] 0 % 0-5 [facility] Platelet countOrdered By: Edilson Hughes on 04-23-2025 Platelets (Bld) [#/Vol] 209 10*3/uL 150-450 [facility] Potassium measurement (mass/ volume)Ordered By: Nick Hughes on 04-23-2025 Potassium (Unsp spec) [Mass/Vol] 4.2 mmol/L 3.3-5.1 [facility] RBC Auto (Bld) [#/Vol]Ordere d By: Nick Hughes on 04-23-2025 RBC (Bld) [#/Vol] 3.99 10*6/uL Low 4.6-6.2 [facility] Serum creatinine measurement (mass/volume)Ordered By: Nick Hughes on 04-23-2025 Creatinine [Mass/Vol] 1.30 mg/dL High 0.70-1.20 [facility] Serum globulin measurementOr dered By: Nick Hughes on 04-23-2025 Globulin (S) [Mass/Vol] 3.1 g/dL 2.2-4.2 [facility] Serum glucose measurement (m ass/volume)Ordered By: Nick Hughes on 04-23-2025 Glucose [Mass/Vol] 151 mg/dL High 70-99 [facility] Serum or plasma alanine pate otransferase (ALT) measurementOrdered By: Nick Hughes on 04-23-2025 ALT [Catalytic activity/Vol] 14 U/L <47 [facility] Serum or plasma albumin ta urement (mass/volume)Ordered By: Nick Hughes on 04-23-2025 Albumin [Mass/Vol] 3.6 g/dL 3.4-4.8 [facility] Serum or plasma albumin/glob ulin mass ratioOrdered By: Nickclarisa Hughes on 04-23-2025 Albumin/Globulin [Mass ratio] 1.2 {ratio} 0.9-2.4 [facility] Serum or plasma alkaline alvin sphatase measurementOrdered By: Nickclarisa Hughes on 04-23-2025 ALP [Catalytic activity/Vol] 169 U/L High 40-129 [facility] Serum or plasma calcium ta urement (mass/volume)Ordered By: [facility] on 04-23-2025 Calcium [Mass/Vol] 9.3 mg/dL 7.6-11.0 [facility] Serum or plasma urea nitroge n measurement (mass/volume)Ordered By: [facility] on 04-23-2025 Urea nitrogen [Mass/Vol] 37 mg/dL High 4-19 [facility] Sodium levelOrdered By: [facility] on 04-23-2025 Sodium [Moles/Vol] 143 mmol/L 133-145 [facility] Total proteinOrdered By: [facility] on 04-23-2025 Protein [Mass/Vol] 6.7 g/dL 5.9-8.4 [facility] White blood cell (WBC) count Ordered By: [facility] on 04-23-2025 WBC (Bld) [#/Vol] 7.4 10*3/uL 4.4-11.0 [facility] PT D/C Summary (1)on 025 PT D/C Summary (1) [facility] Physical Therapy [facility] [place] [address] / REHABILITATION SERVICES DISCHARGE SUMMARY MR#: [id number] Acct: [id number] Name: GIA VIRAMONTES Rep #: [id number] : 1940 84 From: Denia GROSSMAN Referring [...] please feel free to call me at [phone]. Thank you for the referral of this patient. Sincerely, CHAUNCEY Fowler Balance/Gait/Functio nal tests Balance/Special Test Scores Functional Gait Assessment Score: 18 % Disability: 40.0000 CATSIB Score (Max score 120 seconds): 57 Lower Extremity Functional Score: 54 30 Second Chair Rise Test Seconds: 10 Improvement % Improvement: 40 04/02/25 1345 CC: Dr. Sajan Rowley MD Signed Normal [facility] Re-Evaluation - PT (1)on Re-Evaluation - PT (1) [facility] Physical [facility] [address] [place] [address]. [address] [place] [address] / REEVALUATION / MEDICARE RECERTIFICATION PHYSICAL THERAPY MR#: [id number] Acct: [id number] Name: GIA VIRAMONTES Rep #: [id number] : 1940 84 From: Denia GROSSMAN Referring Dr.: Dr. Sajan Rowley MD Status:REG [...] stretch, HR, marching, hip abd, hip extn Balance/Gait/Functio nal tests Balance/Special Test Scores Functional Gait Assessment [...] Neuromotor development, Dynamic Lumbar Stabilization and Scapular Strength/Stabilizati on For the Purpose of:: To improve muscle performance and motor function Functional Training to Include: Gait training Re-Evaluation Ending Re-evaluation ending: Please do not hesitate to contact me at [phone] by phone or if you have questions or concerns regarding this new plan of care! Sincerely, Denia Ansari, CHAUNCEY 03/05/25 1332 CC: Dr. Sajan Rowley MD Signed For Medicare only, by signing this I certify the plan of care. Physicians Signature Date Normal [facility] Neurology Visit Reporton Neurology Visit Report [facility] [address] [place] [address], [address] [place] [address] OFFICE VISIT Date of Service: 02/18/25 MR#: [id number] Acct: [id number] Name: GIA VIRAMONTES Rep #: [id number] : 1940 Provider: Dr. Mane dias MD Age/Sex: 84/M Location: [facility] Status: Signed HPI HPI Chief Complaint: 4 [...] his neuropathic pain. He has seen a painting technician, Dr. Bergeron, earlier in 2024; a lumbar [...] sinus diseas (more content not included)... Normal [facility] Inital Evaluation (1) - PTon 02-04-2025 Inital Evaluation (1) - PT [facility] Physical Therapy [facility] [address] [place] [address]. [address] [place] [address] / REHABILITATION SERVICES INITIAL EVALUATION MR#: [id number] Acct: [id number] Name: GIA VIRAMONTES Rep #: [id number] : 1940 84 From: Steph Monroy DPT [...] cooking and cleaning but its mostly just survival. They do have someone that brings in [...] Patient presents with decreased LE and core strength/stabilizati on, proprioception, flex and muscular endurance leading to abnormal gait, fall risk and decreased ability to perform ADL's. Rehabilitation Potential: Fair Anticipated Interventions Patient/Client Instruction: Educate patient on: Benefits of Fitness Program Therapeutic Exercise to Include: Strength training, Endurance training, Balance training, Coordination, Agility training, Body mechanics, Postural training, Flexibilty training, Gait and locomotor training, Neuromotor development, Dynamic Lumbar Stabilization and Scapular Strength/Stabilizati on For the Purpose of:: To improve muscle performance and motor function Functional Training to Include: Gait training Text: Thank you for the opportunity to evaluate your patient. For Medicare and Medicare HMO plans, please review the plan of care and approve it. It will need to be FAXED BACK to us at [phone] for Medicare purposes. For Medicare only, by signing this I certify the plan of care. Please let me know if there are questions or concerns regarding this plan of care. Physician Signature: D ate: 02/04/25 1426 CC: Dr. Sajan Rowley MD ELR Signed Normal [facility] MR/BMSDoreen 02-04-2025 MR/BMSNORA [facility] Vascular Surgery [facility] [address] [place] [address] OFFICE VISIT Date of Service: 02/05/25 MR#: [id number] Acct: [id number] Name: GIA VIRAMONTES Rep #: [id number] : 1940 Provider: ANUSHA Mcdaniel Age/Sex: 84/M Location: [facility].BVS Status: Signed Intake Vital Signs 11/01/24 07:19 [...] mg tablet 300 mg PO DAILY GOUT 10/21/1501/09 History pantoprazole 40 mg tablet,delayed 40 mg [...] PO DAILY 07/28/22 02/05/25 Hi story vitamins A,C,F-egbt-hqumyv 4,296 1 cap PO BID 02/23/23 02/05/25 His tory mcg-226 mg-90 mg capsule (PreserVision AREDS) omega 4-waf-iwo-fish oil 1,200 mg 2 cap PO DAILY 01/06/24 02/05/25 History (144 mg-216 mg) capsule (Fish Oil) duloxetine 60 mg capsule,delayed 60 mg PO QHS #90 caps 10/14/24 Rx release pregabalin 50 mg capsule 50 mg PO TID 02/05/25 02/05/25 His tory Have you fallen in the past year?: Yes PFSH Medical History Hyperlipemia Peripheral arterial disease Hypertension Abnormal nuclear stress test Type 2 diabetes mellitus Family history of cerebral aneurysm Polyneuropathy Dysrhythmia, cardiac Hypothyroidism Stenosis of right carotid artery Essential (primary) hypertension Atherosclerosis of coronary artery of [place] heart without angina pectoris Personal history of [...] Yes Type: coffee Number of servings: 2 nadine/synagogue: [employer]an seatbelt use: always additional social history: DOES [...] ulceration has (more content not included)... Normal [facility] Absolute lymphocyte countOrd ered By: Sajan Rowley on 12-20-2024 Lymphocytes Auto (Unsp spec) [#/Vol] 1.74 10*3/uL 0.83-4.51 [facility] Absolute neutrophil countOrd ered By: [facility] Rowley on 12-20-2024 Neutrophils (Bld) [#/Vol] 3.2 10*3/uL 2.0-7.7 [facility] Amorphous sediment detection in urine sediment by light microscopyOrdered By: Sajan Rowley on 12-20-2024 Amorphous sediment LM Ql (Urine sed) 1+ [facility] Anion gap in Serum or Plasma Ordered By: Sajan Rowley on 12-20-2024 Anion gap [Moles/Vol] 13 mmol/L 5-15 [facility] Automated lymphocyte count a s percentage of total leukocytesOrdered By: Sajan Rowley on 12-20-2024 Lymphocytes/100 WBC Auto (Unsp spec) 26.0 % 19-41 [facility] BUN/creatinine ratioOrdered By: Sajan Rowley on 12-20-2024 Urea nitrogen/Creatinine [Mass ratio] 27.6 mg/mg High 10-20 [facility] Basophil percentageOrdered B y: Sajan Rowley on 12-20-2024 Basophils/100 WBC (Bld) 0.3 % 0-1 [facility] Bilirubin Test strip Ql (U)O rdered By: Sajan Rowley on 12-20-2024 Bilirubin Ql (U) Negative Negative [facility] Bilirubin, totalOrdered By: Sajan Rowley on 12-20-2024 Bilirubin [Mass/Vol] 0.35 mg/dL 0.00-1.30 [facility] CBC W/Diff, Automatedon 12-08-2024 Absolute Lymph 1.74 X10 3/uL Normal 0.83-4.51 [facility] Comment on above: Order Comment: Order Date: 12/19/24Order Info: [id number] - CBCDOrder Info: [id number] - SED Performed By: #### L 101.9900, L503.6150, L400.0001, L501.9520, L500.4050, L501.6710, L100.0100 ####[facility] [address] [place], [address] Absolute Neut 3.2 X10 3/uL Normal 2.0-7.7 [facility] Comment on above: Order Comment: Order Date: 12/19/24Order Info: [id number] - CBCDOrder Info: [id number] - SED Performed By: #### L 101.9900, L503.6150, L400.0001, L501.9520, L500.4050, L501.6710, L100.0100 ####[facility] [address] [place], [address] Basophils/100 WBC (Bld) 0.3 % Normal 0-1 [facility] Comment on above: Order Comment: Order Date: 12/19/24Order Info: [id number] - CBCDOrder Info: [id number] - SED Performed By: #### L 101.9900, L503.6150, L400.0001, L501.9520, L500.4050, L501.6710, L100.0100 ####[facility] [address] [place], [address] Eosinophils/100 WBC (Bld) 17.2 % High 0-5 [facility] Comment on above: Order Comment: Order Date: 12/19/24Order Info: [id number] - CBCDOrder Info: [id number] - SED Performed By: #### L 101.9900, L503.6150, L400.0001, L501.9520, L500.4050, L501.6710, L100.0100 ####[facility] [address] [place], [address] Erythrocyte distribution width (RBC) [Ratio] 14.3 % Normal 11.6-14.6 [facility] Comment on above: Order Comment: Order Date: 12/19/24Order Info: [id number] - CBCDOrder Info: [id number] - SED Performed By: #### L 101.9900, L503.6150, L400.0001, L501.9520, L500.4050, L501.6710, L100.0100 ####[facility] [address] [place], [address] Hematocrit (Bld) [Volume fraction] 37.5 % Low 40-54 [facility] Comment on above: Order Comment: Order Date: 12/19/24Order Info: 0184- - CBCDOrder Info: [id number] - SED Performed By: #### L 101.9900, L503.6150, L400.0001, L501.9520, L500.4050, L501.6710, L100.0100 ####[facility] [address] [place], [address] Hemoglobin (Bld) [Mass/Vol] 12.2 g/dL Low 13.0-16.5 [facility] Comment on above: Order Comment: Order Date: 12/19/24Order Info: [id number] - CBCDOrder Info: [id number] - SED Performed By: #### L 101.9900, L503.6150, L400.0001, L501.9520, L500.4050, L501.6710, L100.0100 ####[facility] [address] [place], [address] IG% 0.100 Normal 0.0-0.9 [facility] Comment on above: Order Comment: Order Date: 12/19/24Order Info: [id number] - CBCDOrder Info: [id number] - SED Result Comment: IG% - Immature Granulocytes (promyelocytes, myelocytes and metamyelocytes) > 1% indicates that a LEFT SHIFT is Present. Performed By: #### L 101.9900, L503.6150, L400.0001, L501.9520, L500.4050, L501.6710, L100.0100 ####[facility] [address] [place], [address] Lymphocytes/100 WBC (Bld) 26.0 % Normal 19-41 [facility] Comment on above: Order Comment: Order Date: 12/19/24Order Info: [id number] - CBCDOrder Info: [id number] - SED Performed By: #### L 101.9900, L503.6150, L400.0001, L501.9520, L500.4050, L501.6710, L100.0100 ####[facility] [address] [place], [address] MCH (RBC) [Entitic mass] 30.7 pg Normal 27.0-32.0 [facility] Comment on above: Order Comment: Order Date: 12/19/24Order Info: [id number] - CBCDOrder Info: [id number] - SED Performed By: #### L 101.9900, L503.6150, L400.0001, L501.9520, L500.4050, L501.6710, L100.0100 ####[facility] [address] [place], [address] MCHC (RBC) [Mass/Vol] 32.5 g/dL Normal 32-36 [facility] Comment on above: Order Comment: Order Date: 12/19/24Order Info: 018- - CBCDOrder Info: [id number] - SED Performed By: #### L 101.9900, L503.6150, L400.0001, L501.9520, L500.4050, L501.6710, L100.0100 ####[facility] [address] [place], [address] MCV (RBC) [Entitic vol] 94.5 fL High 80-94 [facility] Comment on above: Order Comment: Order Date: 12/19/24Order Info: 183- - CBCDOrder Info: [id number] - SED Performed By: #### L 101.9900, L503.6150, L400.0001, L501.9520, L500.4050, L501.6710, L100.0100 ####[facility] [address] [place], [address] Monocytes/100 WBC (Bld) 8.8 % Normal 0-10 [facility] Comment on above: Order Comment: Order Date: 12/19/24Order Info: 183-07 - CBCDOrder Info: [id number] - SED Performed By: #### L 101.9900, L503.6150, L400.0001, L501.9520, L500.4050, L501.6710, L100.0100 ####[facility] [address] [place], [address] Neutrophils/100 WBC (Bld) 47.6 % Normal 47-70 [facility] Comment on above: Order Comment: Order Date: 12/19/24Order Info: [id number] - CBCDOrder Info: [id number] - SED Performed By: #### L 101.9900, L503.6150, L400.0001, L501.9520, L500.4050, L501.6710, L100.0100 ####[facility] [address] [place], [address] Nucleated RBC (Bld) [#/Vol] 0 10*3/uL Normal 0-5 [facility] Comment on above: Order Comment: Order Date: 12/19/24Order Info: [id number] - CBCDOrder Info: [id number] - SED Performed By: #### L 101.9900, L503.6150, L400.0001, L501.9520, L500.4050, L501.6710, L100.0100 ####[facility] [address] [place], [address] Platelet mean volume (Bld) [Entitic vol] 10.4 fL Normal 6.2-12.0 [facility] Comment on above: Order Comment: Order Date: 12/19/24Order Info: 018-1 - CBCDOrder Info: [id number] - SED Performed By: #### L 101.9900, L503.6150, L400.0001, L501.9520, L500.4050, L501.6710, L100.0100 ####[facility] [address] [place], [address] Platelets (Bld) [#/Vol] 213 10*3/uL Normal 150-450 [facility] Comment on above: Order Comment: Order Date: 12/19/24Order Info: 018- - CBCDOrder Info: [id number] - SED Performed By: #### L 101.9900, L503.6150, L400.0001, L501.9520, L500.4050, L501.6710, L100.0100 ####[facility] [address] [place], [address] RBC (Bld) [#/Vol] 3.97 10*6/uL Low 4.6-6.2 [facility] Comment on above: Order Comment: Order Date: 12/19/24Order Info: 018-1 - CBCDOrder Info: [id number] - SED Performed By: #### L 101.9900, L503.6150, L400.0001, L501.9520, L500.4050, L501.6710, L100.0100 ####[facility] [address] [place], [address] RDW SD 48.7 fl High 35.1-43.9 [facility] Comment on above: Order Comment: Order Date: 12/19/24Order Info: 0184-1 - CBCDOrder Info: [id number] - SED Performed By: #### L 101.9900, L503.6150, L400.0001, L501.9520, L500.4050, L501.6710, L100.0100 ####[facility] [address] [place], [address] WBC (Bld) [#/Vol] 6.7 10*3/uL Normal 4.4-11.0 [facility] Comment on above: Order Comment: Order Date: 12/19/24Order Info: 0184-1 - CBCDOrder Info: [id number] - SED Performed By: #### L 101.9900, L503.6150, L400.0001, L501.9520, L500.4050, L501.6710, L100.0100 ####[facility] [address] [place], [address] CRPon 12-20-2024 C-REACTIVE PROT < 3.00 Normal 0.0-3.0 [facility] Comment on above: Order Comment: Order Date: 12/19/24Order Info: [id number] - CMPOrder Info: [id number] - CRPOrder Info: [id number] - TSHOrder Info: [id number] - FE Performed By: #### L 101.9900, L503.6150, L400.0001, L501.9520, L500.4050, L501.6710, L100.0100 ####[facility] [address] [place], [place], [id number] Carbon dioxide, total [Moles /volume] in Central venous bloodOrdered By: Sajan Rowley on 12-20-2024 CO2 [Moles/Vol] 20.5 mmol/L Low 21.0-32.0 [facility] Chloride assayOrdered By: Ulisses Rowley on 12-20-2024 Chloride [Moles/Vol] 111 mmol/L High 98-108 [facility] Comprehensive Metabolic Prof ilon 12-20-2024 Albumin [Mass/Vol] 4.1 g/dL Normal 3.4-4.8 [facility] Comment on above: Order Comment: Order Date: 12/19/24 Order Info: [id number] - CMP Order Info: [id number] - CRP Order Info: 3 - TSH Order Info: [id number] - FE Performed By: #### L 101.9900, L503.6150, L400.0001, L501.9520, L500.4050, L501.6710, L100.0100 #### [facility] [address] [place], [address] Albumin/Globulin [Mass ratio] 1.2 {ratio} Normal 0.9-2.4 [facility] Comment on above: Order Comment: Order Date: 12/19/24 Order Info: 07-1 - CMP Order Info: [id number] - CRP Order Info: 3015-09 - TSH Order Info: [id number] - FE Performed By: #### L 101.9900, L503.6150, L400.0001, L501.9520, L500.4050, L501.6710, L100.0100 #### [facility] [address] [place], [address] ALK PHOS 135 U/L High 40-129 [facility] Comment on above: Order Comment: Order Date: 12/19/24 Order Info: 0786-1 - CMP Order Info: [id number] - CRP Order Info: 3 - TSH Order Info: [id number] - FE Performed By: #### L 101.9900, L503.6150, L400.0001, L501.9520, L500.4050, L501.6710, L100.0100 #### [facility] [address] [place], [address] ALT [Catalytic activity/Vol] 17 U/L Normal <=46 [facility] Comment on above: Order Comment: Order Date: 12/19/24 Order Info: 0786-1 - CMP Order Info: [id number] - CRP Order Info: 3 - TSH Order Info: [id number] - FE Performed By: #### L 101.9900, L503.6150, L400.0001, L501.9520, L500.4050, L501.6710, L100.0100 #### [facility] [address] [place], [address] AST [Catalytic activity/Vol] 24 U/L Normal <=37 [facility] Comment on above: Order Comment: Order Date: 12/19/24 Order Info: 86-1 - CMP Order Info: [id number] - CRP Order Info: 3 - TSH Order Info: 2494 - FE Performed By: #### L 101.9900, L503.6150, L400.0001, L501.9520, L500.4050, L501.6710, L100.0100 #### [facility] [address] [place], [place], [address] [phone] Bilirubin [Mass/Vol] 0.35 mg/dL Normal 0.00-1.30 [facility] Comment on above: Order Comment: Order Date: 12/19/24 Order Info: 0786-1 - CMP Order Info: [id number] - CRP Order Info: [id number] - TSH Order Info: 2494 - FE Performed By: #### L 101.9900, L503.6150, L400.0001, L501.9520, L500.4050, L501.6710, L100.0100 #### [facility] [address] [place], [address] BUN/CRE 27.6 RATIO High 10-20 [facility] Comment on above: Order Comment: Order Date: 12/19/24 Order Info: 0786-1 - CMP Order Info: [id number] - CRP Order Info: 3015-09 - TSH Order Info: [id number] - FE Performed By: #### L 101.9900, L503.6150, L400.0001, L501.9520, L500.4050, L501.6710, L100.0100 #### [facility] [address] [place], [place], [address] Calcium [Mass/Vol] 10.2 mg/dL Normal 7.6-11.0 [facility] Comment on above: Order Comment: Order Date: 12/19/24 Order Info: 86-1 - CMP Order Info: [id number] - CRP Order Info: 3015-09 - TSH Order Info: 249-4 - FE Performed By: #### L 101.9900, L503.6150, L400.0001, L501.9520, L500.4050, L501.6710, L100.0100 #### [facility] [address] [place], [place], [address] Chloride [Moles/Vol] 111 mmol/L High 98-108 [facility] Comment on above: Order Comment: Order Date: 12/19/24 Order Info: 1 - CMP Order Info: [id number] - CRP Order Info: 3015-09 - TSH Order Info: 2498-4 - FE Performed By: #### L 101.9900, L503.6150, L400.0001, L501.9520, L500.4050, L501.6710, L100.0100 #### [facility] [address] [place], [address] CO2 [Moles/Vol] 20.5 mmol/L Low 21.0-32.0 [facility] Comment on above: Order Comment: Order Date: 12/19/24 Order Info: 86-1 - CMP Order Info: [id number] - CRP Order Info: 3013 - TSH Order Info: 2498-4 - FE Performed By: #### L 101.9900, L503.6150, L400.0001, L501.9520, L500.4050, L501.6710, L100.0100 #### [facility] [address] [place], [address] Creatinine [Mass/Vol] 1.17 mg/dL Normal 0.70-1.20 [facility] Comment on above: Order Comment: Order Date: 12/19/24 Order Info: 0786-1 - CMP Order Info: [id number] - CRP Order Info: [id number] - TSH Order Info: [id number] - FE Performed By: #### L 101.9900, L503.6150, L400.0001, L501.9520, L500.4050, L501.6710, L100.0100 #### [facility] [address] [place], [address] GAP 13 Normal 5-15 [facility] Comment on above: Order Comment: Order Date: 12/19/24 Order Info: [id number] - CMP Order Info: [id number] - CRP Order Info: [id number] - TSH Order Info: [id number] Performed By: #### L 101.9900, L503.6150, L400.0001, L501.9520, L500.4050, L501.6710, L100.0100 #### [facility] [address] [place], [address] GFR/1.73 sq M.predicted among non-blacks MDRD (S/P/Bld) [Vol rate/Area] 62 mL/min/{1.73_m2} Normal >60 [facility] Comment on above: Order Comment: Order Date: 12/19/24 Order Info: [id number] - CMP Order Info: [id number] - CRP Order Info: [id number] - TSH Order Info: [id number] - FE Result Comment: mL/m in/1.73m2 CKD-EPI Creatinine Equation (2020) Performed By: #### L 101.9900, L503.6150, L400.0001, L501.9520, L500.4050, L501.6710, L100.0100 #### [facility] [address] [place], [address] Globulin (S) [Mass/Vol] 3.5 g/dL Normal 2.2-4.2 [facility] Comment on above: Order Comment: Order Date: 12/19/24 Order Info: [id number] - CMP Order Info: [id number] - CRP Order Info: [id number] - TSH Order Info: [id number] - FE Performed By: #### L 101.9900, L503.6150, L400.0001, L501.9520, L500.4050, L501.6710, L100.0100 #### [facility] [address] [place], [address] Glucose [Mass/Vol] 63 mg/dL Low 70-99 [facility] Comment on above: Order Comment: Order Date: 12/19/24 Order Info: 07-1 - CMP Order Info: [id number] - CRP Order Info: [id number] - TSH Order Info: 2498-4 - FE Performed By: #### L 101.9900, L503.6150, L400.0001, L501.9520, L500.4050, L501.6710, L100.0100 #### [facility] [address] [place], [address] Potassium [Moles/Vol] 3.9 mmol/L Normal 3.3-5.1 [facility] Comment on above: Order Comment: Order Date: 12/19/24 Order Info: 07-1 - CMP Order Info: [id number] - CRP Order Info: 6-3 - TSH Order Info: 2498-4 - FE Performed By: #### L 101.9900, L503.6150, L400.0001, L501.9520, L500.4050, L501.6710, L100.0100 #### [facility] [address] [place], [address] Sodium [Moles/Vol] 145 mmol/L Normal 133-145 [facility] Comment on above: Order Comment: Order Date: 12/19/24 Order Info: [id number] - CMP Order Info: [id number] - CRP Order Info: 3 - TSH Order Info: [id number] - FE Performed By: #### L 101.9900, L503.6150, L400.0001, L501.9520, L500.4050, L501.6710, L100.0100 #### [facility] [address] [place], [address] T PROT 7.5 g/dL Normal 5.9-8.4 [facility] Comment on above: Order Comment: Order Date: 12/19/24 Order Info: [id number] - CMP Order Info: [id number] - CRP Order Info: 3 - TSH Order Info: 2494 - FE Performed By: #### L 101.9900, L503.6150, L400.0001, L501.9520, L500.4050, L501.6710, L100.0100 #### [facility] [address] [place], [place], [id number] Urea nitrogen [Mass/Vol] 32 mg/dL High 4-19 [facility] Comment on above: Order Comment: Order Date: 12/19/24 Order Info: [id number] - CMP Order Info: [id number] - CRP Order Info: [id number] - TSH Order Info: 2494 - FE Performed By: #### L 101.9900, L503.6150, L400.0001, L501.9520, L500.4050, L501.6710, L100.0100 #### [facility] [address] [place], [place], [address] Eosinophil percentageOrdered By: Sajan Rowley on 12-20-2024 Eosinophils/100 WBC (Bld) 17.2 % High 0-5 [facility] Erythrocyte Sed Rateon 12-20 SED RATE 37 mm/hr High 0-20 [facility] Comment on above: Order Comment: Order Date: 12/19/24Order Info: [id number] - CBCDOrder Info: [id number] - SED Performed By: #### L 101.9900, L503.6150, L400.0001, L501.9520, L500.4050, L501.6710, L100.0100 ####[facility] [address] [place], [address] Erythrocyte distribution wid th ratioOrdered By: Sajan Rowley on 12-20-2024 Erythrocyte distribution width (RBC) [Ratio] 14.3 % 11.6-14.6 [facility] Erythrocyte distribution wid th standard deviationOrdered By: Sajan Rowley on 12-20-2024 Erythrocyte distribution width (RBC) [Ratio] 48.7 fl High 35.1-43.9 [facility] Erythrocyte sedimentation ra teOrdered By: Sajan Rowley on 12-20-2024 ESR (Bld) [Velocity] 37 mm/h High 0-20 [facility] Glomerular filtration rate ( GFR) estimation/1.73 sq m using serum, plasma, or whole bOrdered By: [facility] Department[facility]org[facility] Rowley on 12-20-2024 GFR/1.73 sq M.predicted among non-blacks MDRD (S/P/Bld) [Vol rate/Area] 62 mL/min/{1.73_m2} >60 [facility] Comment on above: mL/min/1.73m2 CKD-EP I Creatinine Equation (2020) Hematocrit Auto (Bld) [Volum e fraction]Ordered By: Sajan Rowley on 12-20-2024 Hematocrit (Bld) [Volume fraction] 37.5 % Low 40-54 [facility] Hemoglobin measurementOrdere d By: Sajan Rowley on 12-20-2024 Hemoglobin (Bld) [Mass/Vol] 12.2 g/dL Low 13.0-16.5 [facility] Immature granulocytes/100 WB C Auto (Bld)Ordered By: Sajan Rowley on 12-20-2024 Immature granulocytes/100 WBC (Bld) 0.100 % 0.0-0.9 [facility] Comment on above: IG% - Immature Granu locytes (promyelocytes, myelocytes and metamyelocytes) > 1% indicates that a LEFT SHIFT is Present. Ironon 12-20-2024 Iron [Mass/Vol] 75 ug/dL Normal 65-175 [facility] Comment on above: Order Comment: Order Date: 12/19/24Order Info: [id number] - CMPOrder Info: [id number] - CRPOrder Info: [id number] - TSHOrder Info: [id number] - FE Performed By: #### L 101.9900, L503.6150, L400.0001, L501.9520, L500.4050, L501.6710, L100.0100 ####[facility] [address] [place], [place], [address] Iron measurement (mass/mass) Ordered By: Sajan Rowley on 12-20-2024 Iron (Unsp spec) [Mass/Mass] 75 ug/dL 65-175 [facility] Ketones Test strip Ql (U)Ord ered By: Sajan Rowley on 12-20-2024 Ketones Ql (U) Negative Negative [facility] - Chemistry and C hemistry - challengeOrdered By: Sajan Rowley on 12-20-2024 AST [Catalytic activity/Vol] 24 U/L <38 [facility] MCV (mean corpuscular volume ) determinationOrdered By: Sajan Rowley on 12-20-2024 MCV (RBC) [Entitic vol] 94.5 fL High 80-94 [facility] Mean corpuscular hemoglobin (MCH) determinationOrdered By: Sajan Rowley on 12-20-2024 MCH (RBC) [Entitic mass] 30.7 pg 27.0-32.0 [facility] Mean corpuscular hemoglobin concentration (MCHC) determinationOrdered By: Sajan Rowley on 12-20-2024 MCHC (RBC) [Mass/Vol] 32.5 g/dL 32-36 [facility] Mean platelet volume determi nationOrdered By: Sajan Rowley on 12-20-2024 Platelet mean volume (Bld) [Entitic vol] 10.4 fL 6.2-12.0 [facility] Microscopic analysis of urin e for red blood cells (RBC)Ordered By: Sajan Rowley on 12-20-2024 Microscopic analysis of urine for red blood cells (RBC) 0 SEEN /hpf 0-5 [facility] Monocyte percentageOrdered B y: Sajan Rowley on 12-20-2024 Monocytes/100 WBC (Bld) 8.8 % 0-10 [facility] Mucus LM Ql (Urine sed)Order ed By: Sajan Rowley on 12-20-2024 Mucus Ql (Urine sed) 0 SEEN /hpf [facility] Neutrophil percentageOrdered By: Sajan Rowley on 12-20-2024 Neutrophils/100 WBC (Bld) 47.6 % 47-70 [facility] Nitrite Test strip Ql (U)Ord ered By: Sajan Rowley on 12-20-2024 Nitrite Ql (U) Negative Negative [facility] Nucleated red blood cell per centageOrdered By: Sajan Rowley on 12-20-2024 Nucleated RBC/100 WBC (Bld) [Ratio] 0 % 0-5 [facility] Platelet countOrdered By: Ulisses Rowley on 12-20-2024 Platelets (Bld) [#/Vol] 213 10*3/uL 150-450 [facility] Potassium measurement (mass/ volume)Ordered By: Sajan Rowley on 12-20-2024 Potassium (Unsp spec) [Mass/Vol] 3.9 mmol/L 3.3-5.1 [facility] Protein Test strip Ql (U)Ord ered By: Sajan Rowley on 12-20-2024 Protein Ql (U) 30 mg/dl High Negative [facility] RBC Auto (Bld) [#/Vol]Ordere d By: Sajan Rowley on 12-20-2024 RBC (Bld) [#/Vol] 3.97 10*6/uL Low 4.6-6.2 [facility] Serum creatinine measurement (mass/volume)Ordered By: Sajan Rowley on 12-20-2024 Creatinine [Mass/Vol] 1.17 mg/dL 0.70-1.20 [facility] Serum globulin measurementOr dered By: Sajan Rowley on 12-20-2024 Globulin (S) [Mass/Vol] 3.5 g/dL 2.2-4.2 [facility] Serum glucose measurement (m ass/volume)Ordered By: Sajan Rowley on 12-20-2024 Glucose [Mass/Vol] 63 mg/dL Low 70-99 [facility] Serum or plasma C reactive p rotein measurement (mass/volume)Ordered By: Sajan Rowley on 12-20-2024 CRP [Mass/Vol] mg/L 0.0-3.0 [facility] Serum or plasma alanine pate otransferase (ALT) measurementOrdered By: Sajan Rowley on 12-20-2024 ALT [Catalytic activity/Vol] 17 U/L <47 [facility] Serum or plasma albumin ta urement (mass/volume)Ordered By: Sajan Rowley on 12-20-2024 Albumin [Mass/Vol] 4.1 g/dL 3.4-4.8 [facility] Serum or plasma albumin/glob ulin mass ratioOrdered By: Sajan Rowley on 12-20-2024 Albumin/Globulin [Mass ratio] 1.2 {ratio} 0.9-2.4 [facility] Serum or plasma alkaline alvin sphatase measurementOrdered By: Sajan Rowley on 12-20-2024 ALP [Catalytic activity/Vol] 135 U/L High 40-129 [facility] Serum or plasma calcium ta urement (mass/volume)Ordered By: Sajan Rowley on 12-20-2024 Calcium [Mass/Vol] 10.2 mg/dL 7.6-11.0 [facility] Serum or plasma urea nitroge n measurement (mass/volume)Ordered By: Sajan Rowley on 12-20-2024 Urea nitrogen [Mass/Vol] 32 mg/dL High 4-19 [facility] Sodium levelOrdered By: Jeff Rowley on 12-20-2024 Sodium [Moles/Vol] 145 mmol/L 133-145 [facility] Squamous epithelial cells de tection in urine sediment by light microscopyOrdered By: Sajan Rowley on 12-20-2024 Epithelial cells.squamous LM Ql (Urine sed) 5-10 SEEN /hpf 0-5 [facility] TSH DL <= 0.005 mIU/L QnOrde red By: Miguelgeorges Amrik on 12-20-2024 TSH Qn 1.040 uIU/mL 0.300-4.200 [facility] Thyroid Stim Hormone (TSH)on 12-20-2024 TSH 1.040 uIU/mL Normal 0.300-4.200 [facility] Comment on above: Order Comment: Order Date: 12/19/24 Order Info: [id number] - CMP Order Info: [id number] - CRP Order Info: [id number] - TSH Order Info: [id number] - FE Performed By: #### L 101.9900, L503.6150, L400.0001, L501.9520, L500.4050, L501.6710, L100.0100 #### [facility] [address] [place], [place], [id number] Total proteinOrdered By: Daniel Rowley on 12-20-2024 Protein [Mass/Vol] 7.5 g/dL 5.9-8.4 [facility] Urinalysis, Completeon 12-20 AMORPHOUS 1+ Normal [facility] Comment on above: Order Comment: Order Date: 12/19/24Order Info: [id number] - UACCOLLECTOR TO SPECIFY Performed By: #### L 101.9900, L503.6150, L400.0001, L501.9520, L500.4050, L501.6710, L100.0100 ####[facility] [address] [place], [address] BACTERIA 2+ /hpf Normal None Seen [facility] Comment on above: Order Comment: Order Date: 12/19/24Order Info: [id number] - UACCOLLECTOR TO SPECIFY Performed By: #### L 101.9900, L503.6150, L400.0001, L501.9520, L500.4050, L501.6710, L100.0100 ####[facility] [address] [place], [address] EPI,SQUAMOUS 5-10 SEEN Normal 0-5 [facility] Comment on above: Order Comment: Order Date: 12/19/24Order Info: [id number] - UACCOLLECTOR TO SPECIFY Performed By: #### L 101.9900, L503.6150, L400.0001, L501.9520, L500.4050, L501.6710, L100.0100 ####[facility] [address] [place], [address] WBC 0-5 SEEN Normal 0-5 [facility] Comment on above: Order Comment: Order Date: 12/19/24Order Info: [id number] - UACCOLLECTOR TO SPECIFY Performed By: #### L 101.9900, L503.6150, L400.0001, L501.9520, L500.4050, L501.6710, L100.0100 ####[facility] [address] [place], [place], [phone] Mucus Ql (Urine sed) 0 SEEN Normal [facility] Comment on above: Order Comment: Order Date: 12/19/24Order Info: [id number] - UACCOLLECTOR TO SPECIFY Performed By: #### L 101.9900, L503.6150, L400.0001, L501.9520, L500.4050, L501.6710, L100.0100 ####[facility] [address] [place], [address] RBC 0 SEEN Normal 0-5 [facility] Comment on above: Order Comment: Order Date: 12/19/24Order Info: [id number] - UACCOLLECTOR TO SPECIFY Performed By: #### L 101.9900, L503.6150, L400.0001, L501.9520, L500.4050, L501.6710, L100.0100 ####[facility] [address] [place], [address] Urine clarityOrdered By: Daniel Rowley on 12-20-2024 Clarity (U) Clear Clear [facility] Urine color determinationOrd ered By: Sajan Rowley on 12-20-2024 Color (U) Straw Yellow [facility] Urine glucose detectionOrder ed By: Sajan Rowley on 12-20-2024 Glucose Ql (U) Normal mg/dl Normal [facility] Urine leukocyte esterase det ection by dipstickOrdered By: Sajan Rowley on 12-20-2024 Leukocyte esterase Test strip Ql (U) Negative Negative [facility] Urine pHOrdered By: Aleksander Rowley on 12-20-2024 pH (U) 6.0 [pH] 5.0 - 8.0 [facility] Urine sediment bacteria coun t by microscopy (number/high power field)Ordered By: aSjan Rowley on 12-20-2024 Bacteria LM.HPF (Urine sed) [#/Area] 2 /[HPF] None Seen [facility] Urine specific gravity measu rementOrdered By: Sajan Rowley on 12-20-2024 Specific gravity (U) [Rel density] 1.015 1.002-1.030 [facility] Urine urobilinogen measureme ntOrdered By: Sajan Rowley on 12-20-2024 Urobilinogen Ql (U) Normal mg/dl Normal [facility] Vitamin B12on 12-20-2024 Cobalamin (Vitamin B12) [Mass/Vol] 619 pg/mL Normal 180-914 [facility] Comment on above: Order Comment: Order Date: 12/19/24Order Info: [id number] - CMPOrder Info: [id number] - CRPOrder Info: [id number] - TSHOrder Info: [id number] - FE Performed By: #### L 503.0106, L506.1001 ####[facility] [address] [place], [address] Vitamin B12 ser/plasOrdered By: Sajan Rowley on 12-20-2024 Cobalamin (Vitamin B12) [Mass/Vol] 619 pg/mL 180-914 [facility] Vitamin D,25 Hydroxyon 12-20 Vitamin D 25-OH 50.6 ng/mL Normal 30-100 [facility] Comment on above: Order Comment: Order Date: 12/19/24Order Info: [id number] - CMPOrder Info: [id number] - CRPOrder Info: [id number] - TSHOrder Info: [id number] - FE Result Comment: Adelita min D Status Deficiency: <20 ng/mL (50nmol/L) Insufficiency: 20-30 ng/mL (50-75 nmol/L) Sufficiency: 30-100 ng/mL (75-250 nmol/L) Toxicity: >100 ng/mL (>250 nmol/L) Performed By: #### L 503.0106, L506.1001 ####[facility] [address] [place], [place], [id number] White blood cell (WBC) count Ordered By: Sajan Rowley on 12-20-2024 WBC (Bld) [#/Vol] 6.7 10*3/uL 4.4-11.0 [facility] White blood cell countOrdere d By: Sajan Rowley on 12-20-2024 White blood cell count 0-5 SEEN /hpf 0-5 [facility] Bilirubin directOrdered By: Suzi Dye on 11-01-2024 Bilirubin.direct [Mass/Vol] 0.18 mg/dL 0.00-0.30 [facility] Bilirubin, totalOrdered By: Suzi Dye on 11-01-2024 Bilirubin [Mass/Vol] 0.37 mg/dL 0.00-1.30 [facility] Calculated very low density lipoprotein (VLDL) cholesterol measurementOrdered By: Suzi Dye on 11-01-2024 Calculated very low density lipoprotein (VLDL) cholesterol measurement 27 mg/dL 5-40 [facility] Cardiology Visit Reporton Cardiology Visit Report [facility] [address] [place], [place] [address] OFFICE VISIT Date of Service: 11/01/24 MR#: [id number] Acct: [id number] Name: GIA VIRAMONTES SACHI Rep #: [id number] : 1940 Provider: KAN wood Age/Sex: 84/M [facility]: Signed HPI HPI History of Present [...] 95 Intake Visit Reasons: 1 Y FU [employer] Technician Required: No Is patient in pain?: No [...] PO DAILY 07/28/22 11/01/24 Hi story vitamins A,C,Y-mbrd-etfcag 4,296 1 cap PO BID 02/23/23 11/01/24 His tory mcg-226 mg-90 mg capsule (PreserVision AREDS) omega 5-qcj-sdx-fish oil 1,200 mg 2 cap PO DAILY 01/06/24 11/01/24 History (144 mg-216 mg) capsule (Fish Oil) duloxetine 60 mg capsule,delayed 60 mg PO QHS #90 caps 10/14/24 Rx release Ejection fraction %: 55 Have you fallen in the past year?: No PFSH Medical History Hyperlipemia Peripheral arterial disease Hypertension Abnormal nuclear stress test Type 2 diabetes mellitus Family history of cerebral aneurysm Polyneuropathy Dysrhythmia, cardiac Hypothyroidism Stenosis of right carotid artery Essential (primary) hypertension Atherosclerosis of coronary artery of [place] heart without angina pectoris Personal history of [...] cholesterol Mother Arthritis Heart disease Social History household members: spouse Smoking Status: Former smoker Tobacco: How many years used: 8 how long ago did patient quit smokin years ago second hand expos (more content not included)... Normal [facility] LDL calc ser/plasOrdered By: Suzi Dye on 11-01-2024 Cholesterol in LDL [Mass/Vol] 83 mg/dL [facility] Comment on above: Ndjtbeeihw=278-656 m g/dL & Higher Zxbb=943 mg/dL or greater Laboratory - Chemistry and C hemistry - challengeOrdered By: Suzi Dye on 11-01-2024 AST [Catalytic activity/Vol] 33 U/L <38 [facility] Lipid Profileon 11-01-2024 CHOL:HDL 3.94 Normal [facility] Comment on above: Performed By: #### L 500.3400, L500.4100 ####[facility] [address] [facility] [place], [place], [phone] Cholesterol [Mass/Vol] 147 mg/dL Normal <=200 [facility] Comment on above: Result Comment: Chol esterol level, Desirable <200 mg/dL Borderline high cholesterol 200-239 mg/dL High cholesterol >=240 mg/dL Recommendations of the NCEP Adult Treatment Panel for the following risk-cutoff thresholds for the [place] population. Performed By: #### L 500.3400, L500.4100 ####[facility] [address] [place], [address] Cholesterol in HDL [Mass/Vol] 37 mg/dL Low [facility] Comment on above: Result Comment: Rebekah onal Cholesterol Education Program (NCEP) guidelines: <40 mg/dL: Low HDL-cholesterol (major risk factor for CHD) >= 60 mg/dL: High HDL-cholesterol (negative risk factor for CHD) HDL-cholesterol is affected by a number of factors, e.g. smoking, exercise, hormones, sex and age. Performed By: #### L 500.3400, L500.4100 ####[facility] [address] [place], [address] Cholesterol in LDL [Mass/Vol] 83 mg/dL Normal [facility] Comment on above: Result Comment: Bord tpeohs=346-187 mg/dL Higher Vybk=699 mg/dL or greater Performed By: #### L 500.3400, L500.4100 ####[facility] [address] [place], [address] Cholesterol in VLDL [Mass/Vol] 27 mg/dL Normal 5-40 [facility] Comment on above: Performed By: #### L 500.3400, L500.4100 ####[facility] [address] [place], [address] Triglyceride [Mass/Vol] 136 mg/dL Normal [facility] Comment on above: Result Comment: The drugs N-Acetylcysteine and Metamizole may falsely depress this assay. Normal range: <150 mg/dL Borderline High: 150-199 mg/dL High: 200-499 mg/dL Very High: >500 mg/dL Performed By: #### L 500.3400, L500.4100 ####[facility] [address] [place], [address] Liver Profileon 11-01-2024 Albumin [Mass/Vol] 4.0 g/dL Normal 3.4-4.8 [facility] Comment on above: Performed By: #### L 500.3400, L500.4100 ####[facility] [address] [place], [address] ALK PHOS 149 U/L High 40-129 [facility] Comment on above: Performed By: #### L 500.3400, L500.4100 ####[facility] [address] [place], [address] ALT [Catalytic activity/Vol] 17 U/L Normal <=46 [facility] Comment on above: Performed By: #### L 500.3400, L500.4100 ####[facility] [address] [place], [address] AST [Catalytic activity/Vol] 33 U/L Normal <=37 [facility] Comment on above: Performed By: #### L 500.3400, L500.4100 ####[facility] [address] [place], [address] Bilirubin [Mass/Vol] 0.37 mg/dL Normal 0.00-1.30 [facility] Comment on above: Performed By: #### L 500.3400, L500.4100 ####[facility] [address] [place], [address] Bilirubin.direct [Mass/Vol] 0.18 mg/dL Normal 0.00-0.30 [facility] Comment on above: Performed By: #### L 500.3400, L500.4100 ####[facility] [address] [place], [address] Globulin (S) [Mass/Vol] 3.5 g/dL Normal 2.2-4.2 [facility] Comment on above: Performed By: #### L 500.3400, L500.4100 ####[facility] [address] [place], [address] T PROT 7.5 g/dL Normal 5.9-8.4 [facility] Comment on above: Performed By: #### L 500.3400, L500.4100 ####[facility] [address] [place], [address] Screening total cholesterol/ high density lipoprotein (HDL) cholesterol ratioOrdered By: Suzi Dye on 11-01-2024 Cholesterol.total/Cholest konstantin in HDL [Mass ratio] 3.94 {ratio} [facility] Serum globulin measurementOr dered By: Suzi Dye on 11-01-2024 Globulin (S) [Mass/Vol] 3.5 g/dL 2.2-4.2 [facility] Serum or plasma alanine pate otransferase (ALT) measurementOrdered By: Suzi Dye on 11-01-2024 ALT [Catalytic activity/Vol] 17 U/L <47 [facility] Serum or plasma albumin ta urement (mass/volume)Ordered By: Suzi Dye on 11-01-2024 Albumin [Mass/Vol] 4.0 g/dL 3.4-4.8 [facility] Serum or plasma alkaline alvin sphatase measurementOrdered By: Suzi Dye on 11-01-2024 ALP [Catalytic activity/Vol] 149 U/L High 40-129 [facility] Serum or plasma cholesterol in HDL measurement (mass/volume)Ordered By: Suzi Dye on 11-01-2024 Cholesterol in HDL [Mass/Vol] 37 mg/dL Low >40 [facility] Comment on above: National Cholesterol Education Program (NCEP) guidelines:<40 mg/dL: Low HDL-cholesterol (major risk factor for CHD)>= 60 mg/dL: High HDL-cholesterol (negative risk factor for CHD)HDL-cholesterol is affected by a number of factors, e.g. smoking, exercise, hormones, sex and age. Serum or plasma cholesterol measurement (mass/volume)Ordered By: Suzi Dye on 11-01-2024 Cholesterol [Mass/Vol] 147 mg/dL <201 [facility] Comment on above: Cholesterol level, D esirable <200 mg/dLBorderline high cholesterol 200-239 mg/dLHigh cholesterol >=240 mg/dLRecommendations of the NCEP Adult Treatment Panel for the following risk-cutoff thresholds for the [place] population. Total proteinOrdered By: Toy Dye on 11-01-2024 Protein [Mass/Vol] 7.5 g/dL 5.9-8.4 [facility] Triglycerides measurementOrd ered By: Suzi Dye on 11-01-2024 Triglyceride [Mass/Vol] 136 mg/dL <199 [facility] Comment on above: The drugs N-Acetylcy steine and Metamizole may falsely depress this assay. Normal range: <150 mg/dLBorderline High: 150-199 mg/dLHigh: 200-499 mg/dLVery High: >500 mg/dL Carotid Duplex Ultrasoundon 10-28-2024 Carotid Duplex Ultrasound [facility] [address] [place] [address] Carotid Duplex Ultrasound 10/28/24 08 MR#: [id number] Acct: [id number] Name: GIA VIRAMONTES Rep #: [id number] : 1940 84 From: Michael East MD Attending Dr: Dr. Mane Solares MD Status: R EG CLI Ordering Dr: Mane Solares MD Date: 10/28/24 Location: [facility] Sex: M C Admitted: Reason For Study [...] the left vertebral artery. Procedure Carotid Duplex 15642. This is a Carotid Duplex examination using B-mode, color flow and specral Doppler. Exam performed in department. VL/Carotid Duplex Ultrasound Interpretation Summary Moderate (50-69%) stenosis right extracranial internal carotid. Mild (<50%) stenosis left extracranial internal carotid. Flow within the vertebral arteries is antegrade bilaterally. Elevated velocities in the left external carotid artery suggest severe stenosis. Ordering Physician: Mane Solares Referring Physician: Sajan Rowley MD Performed By: Windy Landry RVT 10/28/242017 Date Michael East MD CC: Dr. Sajan Rowley MD; Dr. Mane Solares MD Date Dictated: 10/28/24811 Date Transcribed: 10/28/242017 Civil Drafter: Signed Normal [facility] Duplex ultrasound of carotid artery reportOrdered By: Michael East on 10-28-2024 Study report [facility] Cardiovascular Services [address] [place] [address] Carotid Duplex Ultrasound 10/28/24811 MR#: [id number] Acct: [id number] Name: GIA VIRAMONTES Rep #:[id number] : 1940 84 From: Michael East MD Attending Dr: Dr. Mane Solares MD Status: REG CLI Ordering Dr: Mane Solares MD Date: 10/28/24 Location: [facility] Sex: M C Admitted: Reason For Study [...] the left vertebral artery. Procedure Carotid Duplex 88038. This is a Carotid Duplex examination using B-mode, color flow and specral Doppler. Exam performed in department. VL/Carotid Duplex Ultrasound Interpretation Summary Moderate (50-69%) stenosis right extracranial internal carotid. Mild (<50%) stenosis left extracranial internal carotid. Flow within the vertebral arteries is antegrade bilaterally. Elevated velocitiesin the left external carotid artery suggest severe stenosis. Ordering Physician: Mane Solares Referring Physician: Sajan Rowley MD Performed By: Windy Landry RVT 10/28/242017 Date _ Michael East MD CC: Dr. Sajan Rowley MD; Dr. Mane Solares MD ~ Date Dictated: 10/28/24811 Date Transcribed: 10/28/242017 Civil Drafter: Signed [facility] Other Neurology Visit Reporton Neurology Visit Report [facility] [address] [place] [address], [address] [place] [address] OFFICE VISIT Date of Service: 10/14/24 MR#: [id number] Acct: [id number] Name: GIA VIRAMONTES Rep #: [id number] : 1940 Provider: Dr. Mane dias MD Age/Sex: 84/M Location: [facility] Status: Signed HPI HPI Details: Interim History: [...] with border (more content not included)... Normal [facility] Basic Metabolic Profile (BMP )on 08-22-2024 BUN/CRE 17.6 RATIO Normal 10-20 [facility] Comment on above: Order Comment: Order Date: 05/28/24Order Info: 666-07 - BMP Performed By: #### L 500.2500 ####[facility] [address] [place], [address] CA,Total 10.1 mg/dL Normal 8.5-10.1 [facility] Comment on above: Order Comment: Order Date: 05/28/24Order Info: 666-07 - BMP Performed By: #### L 500.2500 ####[facility] [address] [place], [address] Chloride [Moles/Vol] 108 mmol/L High 98-107 [facility] Comment on above: Order Comment: Order Date: 05/28/24Order Info: 666-07 - BMP Performed By: #### L 500.2500 ####[facility] [address] [place], [address] CO2 [Moles/Vol] 24.0 mmol/L Normal 21.0-32.0 [facility] Comment on above: Order Comment: Order Date: 05/28/24Order Info: 666-07 - BMP Performed By: #### L 500.2500 ####[facility] [address] [place], [address] Creatinine [Mass/Vol] 1.53 mg/dL High 0.70-1.30 [facility] Comment on above: Order Comment: Order Date: 05/28/24Order Info: 666-07 - BMP Result Comment: The validity of the calculated GFR GFRAA in patients over 70 years has not been determined. Clinical correlation is essential. Performed By: #### L 500.2500 ####[facility] [address] [place], [address] EST GFR - AA 56 mL/min Low >60 [facility] Comment on above: Order Comment: Order Date: 05/28/24Order Info: 666-07 - BMP Result Comment: Afri can [place] GFR Calc Performed By: #### L 500.2500 ####[facility] [address] [place], [address] GAP 7 Normal 5-15 [facility] Comment on above: Order Comment: Order Date: 05/28/24Order Info: 666-07 - BMP Performed By: #### L 500.2500 ####[facility] [address] [place], [address] GFR/1.73 sq M.predicted among non-blacks MDRD (S/P/Bld) [Vol rate/Area] 46 mL/min/{1.73_m2} Low >60 [facility] Comment on above: Order Comment: Order Date: 05/28/24Order Info: 666-07 - BMP Result Comment: Non- GFR Calc Performed By: #### L 500.2500 ####[facility] [address] [place], [place], [address] Glucose [Mass/Vol] 129 mg/dL High 74-106 [facility] Comment on above: Order Comment: Order Date: 05/28/24Order Info: 0667-1 - BMP Result Comment: Fast ing Glucose result greater than or equal to 126 mg/dL suggests DIABETES MELLITUS per A.D.A. criteria. Performed By: #### L 500.2500 ####[facility] [address] [place], [place], [address] Potassium [Moles/Vol] 3.5 mmol/L Normal 3.5-5.1 [facility] Comment on above: Order Comment: Order Date: 05/28/24Order Info: 0667 - BMP Performed By: #### L 500.2500 ####[facility] [address] [place], [place], [phone] Sodium [Moles/Vol] 139 mmol/L Normal 136-145 [facility] Comment on above: Order Comment: Order Date: 05/28/24Order Info: 0667 - BMP Performed By: #### L 500.2500 ####[facility] [address] [place], [place], [address] Urea nitrogen [Mass/Vol] 27 mg/dL High 7-18 [facility] Comment on above: Order Comment: Order Date: 05/28/24Order Info: 0667 - BMP Performed By: #### L 500.2500 ####[facility] [address] [place], [place], [address] Blood urea nitrogen (BUN)/cr eatinine ratioOrdered By: Sajan Rowley on 08-22-2024 Urea nitrogen/Creatinine [Mass ratio] 17.6 mg/mg 10-20 [facility] Carbon dioxide measurementOr dered By: Sajan Rowley on 08-22-2024 CO2 [Moles/Vol] 24.0 mmol/L 21.0-32.0 [facility] Chloride measurementOrdered By: Sajan Rowley on 08-22-2024 Chloride [Moles/Vol] 108 mmol/L High 98-107 [facility] Estimated glomerular filtrat ion rate (GFR) AmericanOrdered By: Sajan Rowley on 08-22-2024 Estimated GFR (MDRD) Amer 56 mL/min Low >60 [facility] Comment on above: GFR Calc Glomerular filtration rate ( GFR) estimationOrdered By: Sajan Rowley on 08-22-2024 Estimated GFR (MDRD) Non-Af Amer 46 mL/min Low >60 [facility] Comment on above: Non- GFR Calc Glucose measurementOrdered B y: Sajan Rowley on 08-22-2024 Glucose [Mass/Vol] 129 mg/dL High 74-106 [facility] Comment on above: Fasting Glucose resu lt greater than or equal to 126 mg/dL suggests DIABETES MELLITUS per A.D.A. criteria. Potassium measurementOrdered By: Sajan Rowley on 08-22-2024 Potassium [Moles/Vol] 3.5 mmol/L 3.5-5.1 [facility] Serum anion gap measurementO rdered By: Sajan Rowley on 08-22-2024 Anion gap [Moles/Vol] 7 mmol/L 5-15 [facility] Serum or plasma calcium ta urement (mass/volume)Ordered By: Sajan Rowley on 08-22-2024 Calcium [Mass/Vol] 10.1 mg/dL 8.5-10.1 [facility] Serum or plasma creatinine m easurement (mass/volume)Ordered By: Sajan Rowley on 08-22-2024 Creatinine [Mass/Vol] 1.53 mg/dL High 0.70-1.30 [facility] Comment on above: The validity of the calculated GFR & GFRAA in patients over 70 years has not been determined. Clinical correlation is essential. Serum or plasma urea nitroge n measurement (mass/volume)Ordered By: Sajan Rowley on 08-22-2024 Urea nitrogen [Mass/Vol] 27 mg/dL High 7-18 [facility] Sodium levelOrdered By: Jeff Rowley on 08-22-2024 Sodium [Moles/Vol] 139 mmol/L 136-145 [facility] Thin prep Papanicolaou smear with manual screeningOrdered By: Teddy Anaya on 09-22-2023 Thin prep Papanicolaou smear with manual screening 111 mg/dL 74-106 [facility] Comment on above: MANAGEMENT OF PATIEN T CARE PER NURSING PROTOCOL Absolute lymphocyte countOrd ered By: Suzi Dye on 09-12-2023 Lymphocytes Auto (Unsp spec) [#/Vol] 2.47 10*3/uL 0.83-4.51 [facility] Automated lymphocyte count a s percentage of total leukocytesOrdered By: Suzi Dye on 09-12-2023 Lymphocytes/100 WBC Auto (Unsp spec) 27.4 % 19-41 [facility] Basophil percentageOrdered B y: Suzi Dye on 09-12-2023 Basophils/100 WBC (Bld) 0.6 % 0-1 [facility] Chloride [Moles/Vol] 111 mmol/L 98-107 [facility] Eosinophils/100 WBC (Bld) 2.0 % 0-5 [facility] Glucose [Mass/Vol] 117 mg/dL 74-106 [facility] Comment on above: Fasting Glucose resu lt from 100 to 125 mg/dL suggests IMPAIRED HOMEOSTASIS per A.D.A. criteria. Hemoglobin (Bld) [Mass/Vol] 12.5 g/dL 13.0-16.5 [facility] Monocytes/100 WBC (Bld) 9.3 % 0-10 [facility] Neutrophils (Bld) [#/Vol] 5.5 10*3/uL 2.0-7.7 [facility] Neutrophils/100 WBC (Bld) 60.4 % 47-70 [facility] Potassium [Moles/Vol] 4.8 mmol/L 3.5-5.1 [facility] Sodium [Moles/Vol] 145 mmol/L 136-145 [facility] WBC (Bld) [#/Vol] 9.0 10*3/uL 4.4-11.0 [facility] Determination of erythrocyte mean corpuscular volume (MCV)Ordered By: Suzi Dye on 09-12-2023 MCV (RBC) [Entitic vol] 93.6 fL 80-94 [facility] Erythrocyte distribution wid th ratioOrdered By: Suzi Dye on 09-12-2023 Erythrocyte distribution width (RBC) [Ratio] 14.7 % 11.6-14.6 [facility] Erythrocyte distribution wid th standard deviationOrdered By: Suzi Dye on 09-12-2023 Erythrocyte distribution width (RBC) [Entitic vol] 49.9 fL 35.1-43.9 [facility] Hematocrit Auto (Bld) [Volum e fraction]Ordered By: Suzi Dye on 09-12-2023 Hematocrit (Bld) [Volume fraction] 39.3 % 40-54 [facility] Immature granulocytes/100 WB C Auto (Bld)Ordered By: Suzi Dye on 09-12-2023 Immature granulocytes/100 WBC (Bld) 0.300 % 0.0-0.9 [facility] Comment on above: IG% - Immature Granu locytes (promyelocytes, myelocytes and metamyelocytes) > 1% indicates that a LEFT SHIFT is Present. Laboratory - Chemistry and C hemistry - challengeOrdered By: Suzi Dye on 09-12-2023 CO2 [Moles/Vol] 25.0 mmol/L 21.0-32.0 [facility] Urea nitrogen/Creatinine [Mass ratio] 27.1 mg/mg 10-20 [facility] Laboratory - Hematology and Cell countsOrdered By: Suzi Dye on 09-12-2023 MCH (RBC) [Entitic mass] 29.8 pg 27.0-32.0 [facility] MCHC (RBC) [Mass/Vol] 31.8 g/dL 32-36 [facility] Nucleated RBC/100 WBC (Bld) [Ratio] 0 % 0-5 [facility] Platelet mean volume (Bld) [Entitic vol] 10.1 fL 6.2-12.0 [facility] Platelets (Bld) [#/Vol] 244 10*3/uL 150-450 [facility] No Panel InformationOrdered By: Suzi Dye on 09-12-2023 Estimated GFR (MDRD) Amer 69 mL/min >60 [facility] Comment on above: GFR Calc Estimated GFR (MDRD) Non-Af Amer 57 mL/min >60 [facility] Comment on above: Non- GFR Calc RBC Auto (Bld) [#/Vol]Ordere d By: Suzi Dye on 09-12-2023 RBC (Bld) [#/Vol] 4.20 10*6/uL 4.6-6.2 [facility] Serum or plasma calcium ta urement (mass/volume)Ordered By: Suzi Dye on 09-12-2023 Calcium [Mass/Vol] 10.4 mg/dL 8.5-10.1 [facility] Serum or plasma creatinine m easurement (mass/volume)Ordered By: Suzi Dye on 09-12-2023 Creatinine [Mass/Vol] 1.29 mg/dL 0.70-1.30 [facility] Comment on above: The validity of the calculated GFR & GFRAA in patients over 70 years has not been determined. Clinical correlation is essential. Serum or plasma urea nitroge n measurement (mass/volume)Ordered By: Suzi Dye on 09-12-2023 Urea nitrogen [Mass/Vol] 35 mg/dL 7-18 [facility] Thin prep Papanicolaou smear with manual screeningOrdered By: Suzi Dye on 09-12-2023 Thin prep Papanicolaou smear with manual screening 9 5-15 [facility] Absolute lymphocyte countOrd ered By: Fidencio Rowley on 08-17-2023 Lymphocytes Auto (Unsp spec) [#/Vol] 1.28 10*3/uL 0.83-4.51 [facility] Automated lymphocyte count a s percentage of total leukocytesOrdered By: Fidencio Rowley on 08-17-2023 Lymphocytes/100 WBC Auto (Unsp spec) 22.6 % 19-41 [facility] Basophil percentageOrdered B y: Fidencio Rowley on 08-17-2023 Basophils/100 WBC (Bld) 0.7 % 0-1 [facility] Eosinophils/100 WBC (Bld) 3.2 % 0-5 [facility] Hemoglobin (Bld) [Mass/Vol] 13.4 g/dL 13.0-16.5 [facility] Monocytes/100 WBC (Bld) 11.7 % 0-10 [facility] Neutrophils (Bld) [#/Vol] 3.5 10*3/uL 2.0-7.7 [facility] Neutrophils/100 WBC (Bld) 61.6 % 47-70 [facility] WBC (Bld) [#/Vol] 5.7 10*3/uL 4.4-11.0 [facility] Bilirubin [Mass/Vol] 0.50 mg/dL 0.20-1.00 [facility] Comment on above: For patients on eltr ombopag therapy, use of Dimension [place] TBIL is not recommended. Chloride [Moles/Vol] 110 mmol/L 98-107 [facility] Glucose [Mass/Vol] 133 mg/dL 74-106 [facility] Comment on above: Fasting Glucose resu lt greater than or equal to 126 mg/dL suggests DIABETES MELLITUS per A.D.A. criteria. Potassium [Moles/Vol] 3.5 mmol/L 3.5-5.1 [facility] Protein [Mass/Vol] 8.1 g/dL 6.4-8.2 [facility] Sodium [Moles/Vol] 145 mmol/L 136-145 [facility] Determination of erythrocyte mean corpuscular volume (MCV)Ordered By: Fidencio Rowley on 08-17-2023 MCV (RBC) [Entitic vol] 95.8 fL 80-94 [facility] Erythrocyte distribution wid th ratioOrdered By: Fidencio Rowley on 08-17-2023 Erythrocyte distribution width (RBC) [Ratio] 14.3 % 11.6-14.6 [facility] Erythrocyte distribution wid th standard deviationOrdered By: Fidencio Rowley on 08-17-2023 Erythrocyte distribution width (RBC) [Entitic vol] 50.1 fL 35.1-43.9 [facility] Hematocrit Auto (Bld) [Volum e fraction]Ordered By: Fidencio Rowley on 08-17-2023 Hematocrit (Bld) [Volume fraction] 43.2 % 40-54 [facility] Immature granulocytes/100 WB C Auto (Bld)Ordered By: Fidencio Rowley on 08-17-2023 Immature granulocytes/100 WBC (Bld) 0.200 % 0.0-0.9 [facility] Comment on above: IG% - Immature Granu locytes (promyelocytes, myelocytes and metamyelocytes) > 1% indicates that a LEFT SHIFT is Present. Laboratory - Chemistry and C hemistry - challengeOrdered By: Fidencio Rowley on 08-17-2023 Albumin/Globulin [Mass ratio] 0.8 {ratio} 0.9-2.4 [facility] ALP [Catalytic activity/Vol] 140 U/L 45-117 [facility] ALT [Catalytic activity/Vol] 25 U/L 16-61 [facility] CO2 [Moles/Vol] 26.0 mmol/L 21.0-32.0 [facility] Globulin (S) [Mass/Vol] 4.4 g/dL 2.2-4.2 [facility] Urea nitrogen/Creatinine [Mass ratio] 13.0 mg/mg 10-20 [facility] Laboratory - Hematology and Cell countsOrdered By: Fidencio Rwoley on 08-17-2023 MCH (RBC) [Entitic mass] 29.7 pg 27.0-32.0 [facility] MCHC (RBC) [Mass/Vol] 31.0 g/dL 32-36 [facility] Nucleated RBC/100 WBC (Bld) [Ratio] 0 % 0-5 [facility] Platelet mean volume (Bld) [Entitic vol] 10.1 fL 6.2-12.0 [facility] Platelets (Bld) [#/Vol] 226 10*3/uL 150-450 [facility] No Panel InformationOrdered By: Fidencio Rowley on 08-17-2023 Estimated GFR (MDRD) Amer 67 mL/min >60 [facility] Comment on above: GFR Calc Estimated GFR (MDRD) Non-Af Amer 56 mL/min >60 [facility] Comment on above: Non- GFR Calc RBC Auto (Bld) [#/Vol]Ordere d By: Fidencio Rowley on 08-17-2023 RBC (Bld) [#/Vol] 4.51 10*6/uL 4.6-6.2 [facility] Serum or plasma calcium ta urement (mass/volume)Ordered By: Fidencio Rowley on 08-17-2023 Calcium [Mass/Vol] 9.7 mg/dL 8.5-10.1 [facility] Serum or plasma creatinine m easurement (mass/volume)Ordered By: Fidencio Rowley on 08-17-2023 Creatinine [Mass/Vol] 1.31 mg/dL 0.70-1.30 [facility] Comment on above: The validity of the calculated GFR & GFRAA in patients over 70 years has not been determined. Clinical correlation is essential. Serum or plasma thyroid stim ulating hormone (TSH) measurement (units/volume)Ordered By: Fidencio Rowley on 08-17-2023 TSH Qn 0.39 uIU/mL 0.358-3.74 [facility] Serum or plasma transthyreti n measurement (mass/volume)Ordered By: Fidencio Rowley on 08-17-2023 Prealbumin [Mass/Vol] 21.2 mg/dL 20.0-40.0 [facility] Serum or plasma urea nitroge n measurement (mass/volume)Ordered By: Fidencio Rowley on 08-17-2023 Urea nitrogen [Mass/Vol] 17 mg/dL 7-18 [facility] Serum or plasma uric acid me asurement (mass/volume)Ordered By: Fidencio Rowley on 08-17-2023 Urate [Mass/Vol] 3.8 mg/dL 3.5-7.2 [facility] Comment on above: The drugs N-Acetylcy steine and Metamizole may falsely depress this assay. Thin prep Papanicolaou smear with manual screeningOrdered By: Fidencio Rowley on 08-17-2023 Thin prep Papanicolaou smear with manual screening 3.7 g/dL 3.2-5.0 [facility] Thin prep Papanicolaou smear with manual screening 23 U/L 15-37 [facility] Thin prep Papanicolaou smear with manual screening 9 5-15 [facility] Albumin Elph [Mass/Vol]Order ed By: Mane Solares on 02-23-2023 Albumin [Mass/Vol] 3.9 g/dL 2.9-4.4 [facility] Basophil percentageOrdered B y: Fidencio Rowley on 02-23-2023 Bilirubin [Mass/Vol] 0.50 mg/dL 0.20-1.00 [facility] Comment on above: For patients on eltr ombopag therapy, use of Dimension [place] TBIL is not recommended. Chloride [Moles/Vol] 110 mmol/L 98-107 [facility] Cholesterol [Mass/Vol] 205 mg/dL <200 [facility] Comment on above: <200 mg/dL Desirable 200-240 mg/dL Borderline >240 mg/dL High Risk Glucose [Mass/Vol] 184 mg/dL 74-106 [facility] Comment on above: Fasting Glucose resu lt greater than or equal to 126 mg/dL suggests DIABETES MELLITUS per A.D.A. criteria. Potassium [Moles/Vol] 4.0 mmol/L 3.5-5.1 [facility] Protein [Mass/Vol] 7.7 g/dL 6.4-8.2 [facility] Sodium [Moles/Vol] 143 mmol/L 136-145 [facility] Triglyceride [Mass/Vol] 149 mg/dL <199 [facility] Comment on above: The drugs N-Acetylcy steine and Metamizole may falsely depress this assay.Serum Triglycerides Reference Interval Normal <150 mg/dL Borderline high 150 - 199 mg/dL High 200 - 499 mg/dL Very High > or = 500 mg/dL Basophil percentageOrdered B y: Mane Solares on 02-23-2023 Basophil percentage Comment . [facility] Comment on above: No monoclonality det ected.Performed at: [employer] [place] [id number] Director: Norbert Miner PhD, Phone: [phone] Interpretation of serum or p lasma protein pattern by immunofixation (narrative resultOrdered By: Mane Solares on 02-23-2023 Protein Fractions Immunofixation Leroy [Interp] See comment [facility] Comment on above: Result: Not Observed Laboratory - Chemistry and C hemistry - challengeOrdered By: Fidencio Rowley on 02-23-2023 ALP [Catalytic activity/Vol] 113 U/L 45-117 [facility] ALT [Catalytic activity/Vol] 42 U/L 16-61 [facility] CO2 [Moles/Vol] 26.0 mmol/L 21.0-32.0 [facility] Globulin (S) [Mass/Vol] 3.8 g/dL 2.2-4.2 [facility] Urea nitrogen/Creatinine [Mass ratio] 15.6 mg/mg 10-20 [facility] No Panel InformationOrdered By: Fidencio Rowley on 02-23-2023 Estimated GFR (MDRD) Amer 83 mL/min >60 [facility] Comment on above: GFR Calc Estimated GFR (MDRD) Non-Af Amer 69 mL/min >60 [facility] Comment on above: Non- GFR Calc No Panel InformationOrdered By: Mane Solares on 02-23-2023 Addendum Document Comment . [facility] Comment on above: Protein electrophore sis scan will follow via computer,mail, or check writer salesperson delivery. Serum [id number] measu rement by electrophoresisOrdered By: Mane Solares on 02-23-2023 Alpha 1 globulin Elph [Mass/Vol] 0.3 g/dL 0.0-0.4 [facility] Alpha 1 globulin Elph [Mass/Vol] 1.0 g/dL 0.4-1.0 [facility] Serum or plasma IgA measurem ent (mass/volume)Ordered By: Mane Solares on 02-23-2023 IgA [Mass/Vol] 273 mg/dL 61-437 [facility] Serum or plasma IgG measurem ent (mass/volume)Ordered By: Mane Solares on 02-23-2023 IgG [Mass/Vol] 741 mg/dL [phone] [facility] Serum or plasma IgM measurem ent (mass/volume)Ordered By: Mane Solares on 02-23-2023 IgM [Mass/Vol] 32 mg/dL 15-143 [facility] Serum or plasma albumin ta urement (mass/volume)Ordered By: Fidencio Rowley on 02-23-2023 Albumin [Mass/Vol] 3.9 g/dL 3.2-5.0 [facility] Serum or plasma albumin/glob ulin mass ratioOrdered By: Fidencio Rowley on 02-23-2023 Albumin/Globulin [Mass ratio] 1.0 {ratio} 0.9-2.4 [facility] Serum or plasma beta globuli n measurement by electrophoresis (mass/volume)Ordered By: Mane Solares on 02-23-2023 Beta globulin Elph [Mass/Vol] 1.2 g/dL 0.7-1.3 [facility] Serum or plasma calcium ta urement (mass/volume)Ordered By: Fidencio Rowley on 02-23-2023 Calcium [Mass/Vol] 9.4 mg/dL 8.5-10.1 [facility] Serum or plasma cholesterol in HDL measurement (mass/volume)Ordered By: Fidencio Rowley on 02-23-2023 Cholesterol in HDL [Mass/Vol] 57 mg/dL >40 [facility] Comment on above: The drugs N-Acetylcy steine and Metamizole may falsely depress this assay. Reference Range HDL <40 mg/dL Low HDL Cholesterol HDL >or= 60 mg/dL High HDL Cholesterol Serum or plasma cholesterol in VLDL measurement (mass/volume)Ordered By: Fidencio Rowley on 02-23-2023 Cholesterol in VLDL [Mass/Vol] 30 mg/dL 5-40 [facility] Serum or plasma creatinine m easurement (mass/volume)Ordered By: Fidencio Rowley on 02-23-2023 Creatinine [Mass/Vol] 1.09 mg/dL 0.70-1.30 [facility] Comment on above: The validity of the calculated GFR & GFRAA in patients over 70 years has not been determined. Clinical correlation is essential. Serum or plasma gamma globul in measurement by electrophoresis (mass/volume)Ordered By: Mane Solares on 02-23-2023 Gamma globulin Elph [Mass/Vol] 0.6 g/dL 0.4-1.8 [facility] Serum or plasma immunoelectr ophoresis interpretation (nominal result)Ordered By: Mane Solares on 02-23-2023 Interpretation IEP [Interp] Comment . [facility] Comment on above: No monoclonality det ected. Serum or plasma low density lipoprotein (LDL) cholesterol measurement (mass/volume)Ordered By: Fidencio Rowley on 02-23-2023 Cholesterol in LDL [Mass/Vol] 118 mg/dL 0-130 [facility] Serum or plasma urea nitroge n measurement (mass/volume)Ordered By: Fidencio Rowley on 02-23-2023 Urea nitrogen [Mass/Vol] 17 mg/dL 7-18 [facility] Thin prep Papanicolaou smear with manual screeningOrdered By: Fidencio Rowley on 02-23-2023 Thin prep Papanicolaou smear with manual screening 34 U/L 15-37 [facility] Thin prep Papanicolaou smear with manual screening 7 5-15 [facility] Thin prep Papanicolaou smear with manual screeningOrdered By: Mane Solares on 02-23-2023 Thin prep Papanicolaou smear with manual screening 1.3 0.7-1.7 [facility] Total protein bloodOrdered B y: Mane Solares on 02-23-2023 Protein [Mass/Vol] 7.0 g/dL 6.0-8.5 [facility] Absolute lymphocyte countOrd ered By: Dr. Rowley on 10-17-2022 Lymphocytes Auto (Unsp spec) [#/Vol] 1.46 10*3/uL 0.83-4.51 [facility] Basophil percentageOrdered B y: Dr. Solares on 10-17-2022 Bilirubin [Mass/Vol] 0.70 mg/dL 0.20-1.00 [facility] Comment on above: For patients on eltr ombopag therapy, use of Dimension [place] TBIL is not recommended. Chloride [Moles/Vol] 109 mmol/L 98-107 [facility] Cholesterol [Mass/Vol] 241 mg/dL <200 [facility] Comment on above: <200 mg/dL Desirable 200-240 mg/dL Borderline >240 mg/dL High Risk Glucose [Mass/Vol] 240 mg/dL 74-106 [facility] Comment on above: Glucose result great er than or equal to 200 mg/dLsuggests DIABETES MELLITUS per A.D.A. criteria. Potassium [Moles/Vol] 3.7 mmol/L 3.5-5.1 [facility] Protein [Mass/Vol] 8.2 g/dL 6.4-8.2 [facility] Sodium [Moles/Vol] 141 mmol/L 136-145 [facility] Triglyceride [Mass/Vol] 162 mg/dL <199 [facility] Comment on above: The drugs N-Acetylcy steine and Metamizole may falsely depress this assay.Serum Triglycerides Reference Interval Normal <150 mg/dL Borderline high 150 - 199 mg/dL High 200 - 499 mg/dL Very High > or = 500 mg/dL Basophil percentageOrdered B y: Dr. Rowley on 10-17-2022 Basophils/100 WBC (Bld) 0.5 % 0-1 [facility] Eosinophils/100 WBC (Bld) 7.0 % 0-5 [facility] Neutrophils (Bld) [#/Vol] 3.1 10*3/uL 2.0-7.7 [facility] Neutrophils/100 WBC (Bld) 55.9 % 47-70 [facility] WBC (Bld) [#/Vol] 5.6 10*3/uL 4.4-11.0 [facility] Blood erythrocytes count (nu mber/volume)Ordered By: Dr. Rowley on 10-17-2022 RBC (Bld) [#/Vol] 4.34 10*6/uL 4.6-6.2 [facility] Blood hemoglobin measurement (mass/volume)Ordered By: Dr. Rowley on 10-17-2022 Hemoglobin (Bld) [Mass/Vol] 13.6 g/dL 13.0-16.5 [facility] Blood lymphocytes/100 leukoc ytesOrdered By: Dr. Rowley on 10-17-2022 Lymphocytes/100 WBC (Bld) 26.2 % 19-41 [facility] Blood monocytes/100 leukocyt esOrdered By: Dr. Rowley on 10-17-2022 Monocytes/100 WBC (Bld) 10.2 % 0-10 [facility] Blood platelet mean volumeOr dered By: Dr. Rowley on 10-17-2022 Platelet mean volume (Bld) [Entitic vol] 10.5 fL 6.2-12.0 [facility] Determination of erythrocyte mean corpuscular volume (MCV)Ordered By: Dr. Rowley on 10-17-2022 MCV (RBC) [Entitic vol] 96.5 fL 80-94 [facility] Erythrocyte sedimentation ra teOrdered By: Dr. Rowley on 10-17-2022 ESR (Bld) [Velocity] 58 mm/h 0-20 [facility] Hematocrit Auto (Bld) [Volum e fraction]Ordered By: Dr. Rowley on 10-17-2022 Hematocrit (Bld) [Volume fraction] 41.9 % 40-54 [facility] Laboratory - Chemistry and C hemistry - challengeOrdered By: Dr. Solares on 10-17-2022 ALP [Catalytic activity/Vol] 135 U/L 45-117 [facility] ALT [Catalytic activity/Vol] 60 U/L 16-61 [facility] CO2 [Moles/Vol] 27.0 mmol/L 21.0-32.0 [facility] Cobalamin (Vitamin B12) [Mass/Vol] 636 pg/mL 211-911 [facility] Globulin (S) [Mass/Vol] 4.4 g/dL 2.2-4.2 [facility] Urea nitrogen/Creatinine [Mass ratio] 17.4 mg/mg 10-20 [facility] Laboratory - Hematology and Cell countsOrdered By: Dr. Rowley on 10-17-2022 Erythrocyte distribution width (RBC) [Entitic vol] 49.1 fL 35.1-43.9 [facility] Erythrocyte distribution width (RBC) [Ratio] 13.9 % 11.6-14.6 [facility] Immature granulocytes/100 WBC (Bld) 0.200 % 0.0-0.9 [facility] Comment on above: IG% - Immature Granu locytes (promyelocytes, myelocytes and metamyelocytes) > 1% indicates that a LEFT SHIFT is Present. MCH (RBC) [Entitic mass] 31.3 pg 27.0-32.0 [facility] Nucleated RBC/100 WBC (Bld) [Ratio] 0 % 0-5 [facility] MCHC Auto (RBC) [Mass/Vol]Or dered By: Dr. Rowley on 10-17-2022 MCHC (RBC) [Mass/Vol] 32.5 g/dL 32-36 [facility] No Panel InformationOrdered By: Dr. Solares on 10-17-2022 Estimated GFR (MDRD) Amer 78 mL/min >60 [facility] Comment on above: GFR Calc Estimated GFR (MDRD) Non-Af Amer 65 mL/min >60 [facility] Comment on above: Non- GFR Calc Free Lambda Light Chains, Quant 23.7 mg/L 5.7-26.3 [facility] Thyroid Stimulating Hormone (TSH) 1.14 uIU/mL 0.358-3.74 [facility] Whole Blood Vitamin B1 Level 137.8 nmol/L 66.5-200.0 [facility] Comment on above: Performed at: [address] [id number] Director: Norbert Miner PhD, Phone: [phone] at: - [facility] [id number] Director: Kerri Marlow MD, Phone: [phone] Platelets bldOrdered By: Dr. Rowley on 10-17-2022 Platelets (Bld) [#/Vol] 194 10*3/uL 150-450 [facility] Serum immunoglobulin kappa l ight chains/immunoglobulin lambda light chains mass ratioOrdered By: Dr. Solares on 10-17-2022 Immunoglobulin light chains.kappa/Immunoglobul in light chains.lambda (S) [Mass ratio] 1.33 0.26-1.65 [facility] Serum or plasma albumin ta urement (mass/volume)Ordered By: Dr. Solares on 10-17-2022 Albumin [Mass/Vol] 3.8 g/dL 3.2-5.0 [facility] Serum or plasma albumin/glob ulin mass ratioOrdered By: Dr. Solares on 10-17-2022 Albumin/Globulin [Mass ratio] 0.9 {ratio} 0.9-2.4 [facility] Serum or plasma calcium ta urement (mass/volume)Ordered By: Dr. Solares on 10-17-2022 Calcium [Mass/Vol] 9.8 mg/dL 8.5-10.1 [facility] Serum or plasma cholesterol in HDL measurement (mass/volume)Ordered By: Dr. Solares on 10-17-2022 Cholesterol in HDL [Mass/Vol] 46 mg/dL >40 [facility] Comment on above: The drugs N-Acetylcy steine and Metamizole may falsely depress this assay. Reference Range HDL <40 mg/dL Low HDL Cholesterol HDL >or= 60 mg/dL High HDL Cholesterol Serum or plasma cholesterol in VLDL measurement (mass/volume)Ordered By: Dr. Solares on 04-10-2023 Cholesterol in VLDL [Mass/Vol] 32 mg/dL 5-40 [facility] Serum or plasma creatinine m easurement (mass/volume)Ordered By: Dr. Solares on 10-17-2022 Creatinine [Mass/Vol] 1.15 mg/dL 0.70-1.30 [facility] Comment on above: The validity of the calculated GFR & GFRAA in patients over 70 years has not been determined. Clinical correlation is essential. Serum or plasma folate measu rement (mass/volume)Ordered By: Dr. Solares on 10-17-2022 Folate [Mass/Vol] 4.40 ng/mL 3.1-55.4 [facility] Serum or plasma immunoglobul in kappa light chains measurement (mass/volume)Ordered By: Dr. Solares on 10-17-2022 Immunoglobulin light chains.kappa [Mass/Vol] 31.5 mg/L 3.3-19.4 [facility] Serum or plasma low density lipoprotein (LDL) cholesterol measurement (mass/volume)Ordered By: Dr. Solares on 10-17-2022 Cholesterol in LDL [Mass/Vol] 163 mg/dL 0-130 [facility] Serum or plasma urea nitroge n measurement (mass/volume)Ordered By: Dr. Solares on 10-17-2022 Urea nitrogen [Mass/Vol] 20 mg/dL 7-18 [facility] Thin prep Papanicolaou smear with manual screeningOrdered By: Dr. Solares on 10-17-2022 Thin prep Papanicolaou smear with manual screening 68 U/L 15-37 [facility] Thin prep Papanicolaou smear with manual screening 5 5-15 [facility] Whole blood hemoglobin A1c/t otal hemoglobin ratio (mass fraction)Ordered By: Dr. Solares on 10-17-2022 HbA1c (Bld) [Mass fraction] 8.4 % 3.8-5.6 [facility] Comment on above: Normal < 5.7 % Predi abetic 5.7 - 6.4 % Diabetic >or= 6.5 % Please note range changes. Basophil percentageOrdered B y: Dr. Rowley on 06-03-2022 Bilirubin [Mass/Vol] 0.70 mg/dL 0.20-1.00 [facility] Comment on above: For patients on eltr ombopag therapy, use of Dimension [place] TBIL is not recommended. Chloride [Moles/Vol] 108 mmol/L 98-107 [facility] Cholesterol [Mass/Vol] 209 mg/dL <200 [facility] Comment on above: <200 mg/dL Desirable 200-240 mg/dL Borderline >240 mg/dL High Risk Glucose [Mass/Vol] 230 mg/dL 74-106 [facility] Comment on above: Glucose result great er than or equal to 200 mg/dLsuggests DIABETES MELLITUS per A.D.A. criteria. Potassium [Moles/Vol] 4.2 mmol/L 3.5-5.1 [facility] Protein [Mass/Vol] 7.6 g/dL 6.4-8.2 [facility] Sodium [Moles/Vol] 142 mmol/L 136-145 [facility] Triglyceride [Mass/Vol] 155 mg/dL <199 [facility] Comment on above: The drugs N-Acetylcy steine and Metamizole may falsely depress this assay.Serum Triglycerides Reference Interval Normal <150 mg/dL Borderline high 150 - 199 mg/dL High 200 - 499 mg/dL Very High > or = 500 mg/dL Laboratory - Chemistry and C hemistry - challengeOrdered By: Dr. Rowley on 06-03-2022 ALP [Catalytic activity/Vol] 118 U/L 45-117 [facility] ALT [Catalytic activity/Vol] 53 U/L 16-61 [facility] CO2 [Moles/Vol] 27.0 mmol/L 21.0-32.0 [facility] Cobalamin (Vitamin B12) [Mass/Vol] 586 pg/mL 211-911 [facility] Globulin (S) [Mass/Vol] 3.8 g/dL 2.2-4.2 [facility] Urea nitrogen/Creatinine [Mass ratio] 17.0 mg/mg 10-20 [facility] No Panel InformationOrdered By: Dr. Rowley on 06-03-2022 Estimated GFR (MDRD) Amer 86 mL/min >60 [facility] Comment on above: GFR Calc Estimated GFR (MDRD) Non-Af Amer 71 mL/min >60 [facility] Comment on above: Non- GFR Calc Serum or plasma albumin ta urement (mass/volume)Ordered By: Dr. Rowley on 06-03-2022 Albumin [Mass/Vol] 3.8 g/dL 3.2-5.0 [facility] Serum or plasma albumin/glob ulin mass ratioOrdered By: Dr. Rowley on 06-03-2022 Albumin/Globulin [Mass ratio] 1.0 {ratio} 0.9-2.4 [facility] Serum or plasma calcium ta urement (mass/volume)Ordered By: Dr. Rowley on 06-03-2022 Calcium [Mass/Vol] 9.2 mg/dL 8.5-10.1 [facility] Serum or plasma cholesterol in HDL measurement (mass/volume)Ordered By: Dr. Rowley on 06-03-2022 Cholesterol in HDL [Mass/Vol] 43 mg/dL >40 [facility] Comment on above: The drugs N-Acetylcy steine and Metamizole may falsely depress this assay. Reference Range HDL <40 mg/dL Low HDL Cholesterol HDL >or= 60 mg/dL High HDL Cholesterol Serum or plasma cholesterol in VLDL measurement (mass/volume)Ordered By: Dr. Rowley on 06-03-2022 Cholesterol in VLDL [Mass/Vol] 31 mg/dL 5-40 [facility] Serum or plasma creatinine m easurement (mass/volume)Ordered By: Dr. Rowley on 06-03-2022 Creatinine [Mass/Vol] 1.06 mg/dL 0.70-1.30 [facility] Comment on above: The validity of the calculated GFR & GFRAA in patients over 70 years has not been determined. Clinical correlation is essential. Serum or plasma low density lipoprotein (LDL) cholesterol measurement (mass/volume)Ordered By: Dr. Rowley on 06-03-2022 Cholesterol in LDL [Mass/Vol] 135 mg/dL 0-130 [facility] Serum or plasma urea nitroge n measurement (mass/volume)Ordered By: Dr. Rowley on 06-03-2022 Urea nitrogen [Mass/Vol] 18 mg/dL 7-18 [facility] Thin prep Papanicolaou smear with manual screeningOrdered By: Dr. Rowley on 06-03-2022 Thin prep Papanicolaou smear with manual screening 70 U/L 15-37 [facility] Thin prep Papanicolaou smear with manual screening 7 5-15 [facility] ECG 12 [place] 09-03-2021 Atrial Rate [facility] P [place] [facility] P-R Interval [facility] Q-T Interval [facility] Q-T Interval (corrected) [facility] QRS Duration [facility] QTC Calculation (Bezet) [facility] [place] [facility] T [place] [facility] Glucose (Bld) [Mass/Vol]on 0 09-03-2021 Glucose [Mass/Vol] 249 mg/dL [facility] Hematocrit Auto (Bld) [Volum e fraction]on 09-03-2021 Hematocrit (Bld) [Volume fraction] 39.0 % Abnormal 41.0 - 53.0 % [facility] Hemoglobin Calc (Bld) [Mass/ Vol]on 09-03-2021 Hemoglobin (Bld) [Mass/Vol] 13.3 g/dL Abnormal 13.5 - 17.5 g/dL [facility] No Panel Informationon 09-03 Interpretation and review of laboratory results Abnormal [facility] Potassium (Bld) [Moles/Vol]o n 09-03-2021 Potassium [Moles/Vol] 4.4 mmol/L 3.5 - 5.1 mmol/L [facility] Vital Signs Date Time Vital Sign Value Performing Clinician Christine nichols 04-25-2025 15:12-0400 Body temperature 98.7 [degF] Dr. Sajan Rowley MD Work Phone: [facility] 04-25-2025 15:12-0400 Diastolic blood pressure 66 mm[Hg] Dr. Sajan Rowley MD Work Phone: [facility] 04-25-2025 15:12-0400 Heart rate 48 /min Dr. Sajan Rowley MD Work Phone: [facility] 04-25-2025 15:12-0400 Respiratory rate 16 /min Dr. Sajan Rowley MD Work Phone: [facility] 04-25-2025 15:12-0400 SaO2% (BldA) [Mass fraction] 96 % Dr. Sajan Rowley MD Work Phone: 0(121)104-524965 [address] 04-25-2025 15:12-0400 Systolic blood pressure 156 mm[Hg] Dr. Sajan Rowley MD Work Phone: 0(631)594-309830 [place] [address] 04-23-2025 11:34-0400 Body temperature 98.7 [degF] Dr. Sajan Rowley MD Work Phone: 5(140)521-300730 [place] [address] 04-23-2025 11:34-0400 Diastolic blood pressure 75 mm[Hg] Dr. Sajan Rowley MD Work Phone: 5(829)427-950430 [place] [address] 04-23-2025 11:34-0400 Heart rate 109 /min Dr. Sajan Rowley MD Work Phone: 4(386)162-244730 [place] [address] 04-23-2025 11:34-0400 Respiratory rate 16 /min Dr. Sajan Rowley MD Work Phone: 0(594)477-346530 [place] [address] 04-23-2025 11:34-0400 SaO2% (BldA) [Mass fraction] 100 % Dr. Sajan Rowley MD Work Phone: 2(764)697-185230 [place] [address] 04-23-2025 11:34-0400 Systolic blood pressure 127 mm[Hg] Dr. Sajan Rowley MD Work Phone: 1(419)221-959030 [place] [address] 04-23-2025 09:23-0400 Body height 182.[address] Sajan Rowley MD Work Phone: 3(179)589-035130 [place] [address] 04-23-2025 09:23-0400 Body mass index (BMI) [Ratio] 24.4 kg/m2 Dr. Sajan Rowley MD Work Phone: 9(977)270-556630 [place] [address] 04-23-2025 09:23-0400 Body weight 81.[address] Sajan Rowley MD Work Phone: 5(116)343-560130 [place] [address] 02-18-2025 09:58-0400 Body height 182.[address] Sajan Rowley MD Work Phone: 7(423)924-011730 [place] [address] 02-18-2025 09:58-0400 Body mass index (BMI) [Ratio] 24.7 kg/m2 Dr. Sajan Rowley MD Work Phone: [facility] 02-18-2025 09:58-0400 Body temperature 97.5 [degF] Dr. Sajan Rowley MD Work Phone: [facility] 02-18-2025 09:58-0400 Body weight 82.[address] Sajan Rowley MD Work Phone: [facility] 02-18-2025 09:58-0400 Diastolic blood pressure 65 mm[Hg] Dr. Sajan Rowley MD Work Phone: [facility] 02-18-2025 09:58-0400 Heart rate 65 /min Dr. Sajan Rowley MD Work Phone: [facility] 02-18-2025 09:58-0400 Respiratory rate 15 /min Dr. Sajan Rowley MD Work Phone: [facility] 02-18-2025 09:58-0400 SaO2% (BldA) [Mass fraction] 96 % Dr. Sajan Rowley MD Work Phone: [facility] 02-18-2025 09:58-0400 Systolic blood pressure 125 mm[Hg] Dr. Sajan Rowley MD Work Phone: [facility] 02-05-2025 13:15-0400 Body temperature 98.4 [degF] Dr. Sajan Rowley MD Work Phone: [facility] 02-05-2025 13:15-0400 Body weight 75.[address] Sajan Rowley MD Work Phone: [facility] 02-05-2025 13:15-0400 Diastolic blood pressure 61 mm[Hg] Dr. Sajan Rowley MD Work Phone: [facility] 02-05-2025 13:15-0400 Heart rate 62 /min Dr. Sajan Rowley MD Work Phone: [facility] 02-05-2025 13:15-0400 Respiratory rate 16 /min Dr. Sajan Rowley MD Work Phone: 5(517)179-258820 [place] [address] 02-05-2025 13:15-0400 SaO2% (BldA) [Mass fraction] 94 % Dr. Sajan Rowley MD Work Phone: 4(137)487-751830 [place] [address] 02-05-2025 13:15-0400 Systolic blood pressure 106 mm[Hg] Dr. Sajan Rowley MD Work Phone: 0(793)555-150330 [place] [address] 11-01-2024 08:13-0400 Diastolic blood pressure 72 mm[Hg] Dr. Sajan Rowley MD Work Phone: 8(641)248-162430 [place] [address] 11-01-2024 08:13-0400 Systolic blood pressure 114 mm[Hg] Dr. Sajan Rowley MD Work Phone: 5(733)390-678430 [place] [address] 11-01-2024 07:19-0400 Body mass index (BMI) [Ratio] 25.3 kg/m2 Dr. Sajan Rowley MD Work Phone: 1(388)129-450030 [place] [address] 11-01-2024 07:19-0400 Body weight 84.[address] Sajan Rowley MD Work Phone: 6(714)411-851630 [place] [address] 11-01-2024 07:19-0400 Heart rate 66 /min Dr. Sajan Rowley MD Work Phone: 5(440)333-002430 [place] [address] 11-01-2024 07:19-0400 Respiratory rate 18 /min Dr. Sajan Rowley MD Work Phone: 3(627)266-960030 [place] [address] 11-01-2024 07:19-0400 SaO2% (BldA) [Mass fraction] 95 % Dr. Sajan Rowley MD Work Phone: 0(140)270-484730 [place] [address] 10-14-2024 13:04-0400 Body height 182.[address] Sajan Rowley MD Work Phone: 3(239)871-677130 [place] [address] 10-14-2024 13:04-0400 Body mass index (BMI) [Ratio] 25 kg/m2 Dr. Sajan Rowley MD Work Phone: [facility] 10-14-2024 13:04-0400 Body temperature 98 [degF] Dr. Sajan Rowley MD Work Phone: [facility] 10-14-2024 13:04-0400 Body weight 83.[address] Sajan Rowley MD Work Phone: [facility] 10-14-2024 13:04-0400 Diastolic blood pressure 68 mm[Hg] Dr. Sajan Rowley MD Work Phone: 3(098)304-526920 [place] [address] 10-14-2024 13:04-0400 Heart rate 71 /min Dr. Sajan Rowley MD Work Phone: 9(021)328-196265 [address] 10-14-2024 13:04-0400 Respiratory rate 15 /min Dr. Sajan Rowley MD Work Phone: 8(756)313-907020 [place] [address] 10-14-2024 13:04-0400 SaO2% (BldA) [Mass fraction] 98 % Dr. Sajan Rowley MD Work Phone: [facility] 10-14-2024 13:04-0400 Systolic blood pressure 124 mm[Hg] Dr. Sajan Rowley MD Work Phone: [facility] 09-22-2023 09:23-0400 Body height 182.[address] Fidencio Rowley Work Phone: 0(232)499-623720 [place] [address] 09-22-2023 09:23-0400 Body weight 84.[address] Fidencio Rowley Work Phone: [facility] 09-21-2023 08:55-0400 Body mass index (BMI) [Ratio] 25.2 kg/m2 Dr. Fidencio Rowley Work Phone: 3(295)375-313630 [place] [address] 07-27-2023 11:08-0500 Body height 182.[address] Fidencio Rowley Work Phone: 1(676)803-381020 [place] [address] 07-27-2023 11:08-0500 Body mass index (BMI) [Ratio] 25.2 kg/m2 Dr. Fidencio Rowley Work Phone: [facility] 07-27-2023 11:08-0500 Body weight 84.[address] Fidencio Rowley Work Phone: [facility] 07-27-2023 11:08-0500 Diastolic blood pressure 64 mm[Hg] Dr. Fidencio Rowley Work Phone: [facility] 07-27-2023 11:08-0500 Heart rate 77 /min Dr. Fidencio Rowley Work Phone: [facility] 07-27-2023 11:08-0500 Respiratory rate 18 /min Dr. Fidencio Rowley Work Phone: [facility] 07-27-2023 11:08-0500 SaO2% (BldA) [Mass fraction] 94 % Dr. Fidencio Rowley Work Phone: [facility] 07-27-2023 11:08-0500 Systolic blood pressure 114 mm[Hg] Dr. Fidencio Rowley Work Phone: [facility] 06-29-2023 13:02-0500 Body mass index (BMI) [Ratio] 25.7 kg/m2 Dr. Fidencio Rowley Work Phone: [facility] 06-29-2023 13:02-0500 Body temperature 97.8 [degF] Dr. Fidencio Rowley Work Phone: [facility] 06-29-2023 13:02-0500 Body weight 86.[address] Fidencio Rowley Work Phone: [facility] 06-29-2023 13:02-0500 Diastolic blood pressure 70 mm[Hg] Dr. Fidencio Rowley Work Phone: [facility] 06-29-2023 13:02-0500 Heart rate 95 /min Dr. Fidencio Rowley Work Phone: [facility] 06-29-2023 13:02-0500 Respiratory rate 17 /min Dr. Fidencio Rowley Work Phone: [facility] 06-29-2023 13:02-0500 SaO2% (BldA) [Mass fraction] 95 % Dr. Fidencio Rowley Work Phone: [facility] 06-29-2023 13:02-0500 Systolic blood pressure 120 mm[Hg] Dr. Fidencio Rowley Work Phone: [facility] 02-23-2023 11:29-0400 Body height 182.[address] Fidencio Rowley Work Phone: [facility] 02-23-2023 11:29-0400 Body mass index (BMI) [Ratio] 26.4 kg/m2 Dr. Fidencio Rowley Work Phone: [phone] [place] [address] 02-23-2023 11:29-0400 Body temperature 98 [degF] Dr. Fidencio Rowley Work Phone: [facility] 02-23-2023 11:29-0400 Body weight 88.[address] Fidencio Rowley Work Phone: [facility] 02-23-2023 11:29-0400 Diastolic blood pressure 70 mm[Hg] Dr. Fidencio Rowley Work Phone: [facility] 02-23-2023 11:29-0400 Heart rate 71 /min Dr. Fidencio Rowley Work Phone: [facility] 02-23-2023 11:29-0400 Respiratory rate 17 /min Dr. Fidencio Rowley Work Phone: [facility] 02-23-2023 11:29-0400 SaO2% (BldA) [Mass fraction] 95 % Dr. Fidencio Rowley Work Phone: [facility] 02-23-2023 11:29-0400 Systolic blood pressure 132 mm[Hg] Dr. Fidencio Rowley Work Phone: [facility] 10-13-2022 09:59-0400 Body height 182.[address] Fidencio Rowley Work Phone: [facility] 10-13-2022 09:59-0400 Body mass index (BMI) [Ratio] 27.1 kg/m2 Dr. Fidencio Rowley Work Phone: [facility] 10-13-2022 09:59-0400 Body temperature 98 [degF] Dr. Fidencio Rowley Work Phone: [facility] 10-13-2022 09:59-0400 Body weight 90.[address] Fidencio Rowley Work Phone: [facility] 10-13-2022 09:59-0400 Diastolic blood pressure 70 mm[Hg] Dr. Fidencio Rowley Work Phone: [facility] 10-13-2022 09:59-0400 Heart rate 79 /min Dr. Fidencio Rowley Work Phone: [facility] 10-13-2022 09:59-0400 Respiratory rate 17 /min Dr. Fidencio Rowley Work Phone: [facility] 10-13-2022 09:59-0400 SaO2% (BldA) [Mass fraction] 94 % Dr. Fidencio Rowley Work Phone: [facility] 10-13-2022 09:59-0400 Systolic blood pressure 136 mm[Hg] Dr. Fidencio Rowley Work Phone: [facility] 07-28-2022 14:59-0500 Body height 182.[address] Fidencio Rowley Work Phone: [facility] 07-28-2022 14:59-0500 Body mass index (BMI) [Ratio] 27.1 kg/m2 Dr. Fidencio Rowley Work Phone: [facility] 07-28-2022 14:59-0500 Body weight 90.[address] Fidencio Rowley Work Phone: [facility] 07-28-2022 14:59-0500 Diastolic blood pressure 68 mm[Hg] Dr. Fidencio Rowley Work Phone: [facility] 07-28-2022 14:59-0500 Heart rate 62 /min Dr. Fidencio Rowley Work Phone: [facility] 07-28-2022 14:59-0500 Respiratory rate 16 /min Dr. Fidencio Rowely Work Phone: [facility] 07-28-2022 14:59-0500 Systolic blood pressure 132 mm[Hg] Dr. Fidencio Rowley Work Phone: [facility] 07-19-2022 08:04-0500 Body mass index (BMI) [Ratio] 27.1 kg/m2 Dr. Fidencio Rowley Work Phone: [phone] [place] [address] 07-19-2022 08:04-0500 Body temperature 97.5 [degF] Dr. Fidencio Rowley Work Phone: [facility] 07-19-2022 08:04-0500 Body weight 90.[address] Fidencio Rowley Work Phone: [facility] 07-19-2022 08:04-0500 Diastolic blood pressure 71 mm[Hg] Dr. Fidencio Rowley Work Phone: [facility] 07-19-2022 08:04-0500 Heart rate 80 /min Dr. Fidencio Rowley Work Phone: [facility] 07-19-2022 08:04-0500 Respiratory rate 18 /min Dr. Fidencio Rowley Work Phone: [facility] 07-19-2022 08:04-0500 SaO2% (BldA) [Mass fraction] 97 % Dr. Fidencio Rowley Work Phone: [facility] 07-19-2022 08:04-0500 Systolic blood pressure 129 mm[Hg] Dr. Fidencio Rowley Work Phone: [facility] 09-03-2021 10:28-0500 Body height 182.9 cm Merrill Careyt DO Work Phone: [facility] 09-03-2021 10:28-0500 Body mass index (BMI) [Ratio] 27.4 kg/m2 Merrill Lonnie DO Work Phone: [facility] 09-03-2021 10:28-0500 Body temperature 98.4 [degF] Merrill Lonnie DO Work Phone: [facility] 09-03-2021 10:28-0500 Body weight 91.63 kg Merrill Colvingett DO Work Phone: [facility] 09-03-2021 10:28-0500 Diastolic blood pressure 70 mm[Hg] Merrill Lonnie DO Work Phone: [facility] 09-03-2021 10:28-0500 Heart rate 66 /min Merrill Lonnie DO Work Phone: [facility] 09-03-2021 10:28-0500 Respiratory rate 14 /min Merrill Lonnie DO Work Phone: [facility] 09-03-2021 10:28-0500 SaO2% (BldA) [Mass fraction] 94 % Merrill Lonnie DO Work Phone: [facility] 09-03-2021 10:28-0500 Systolic blood pressure 136 mm[Hg] Merrill Colvingett DO Work Phone: [facility] Encounters Encounter Date Encounter Type Care Provider Facility Start: 05-08-2025 End: 05-08-2025 ambulatory Sajan Rowley Facility:[facility] Start: 04-25-2025 End: 04-25-2025 Patient encounter procedure Noel TAVARES -Laboratory Specimen Work Phone: Start: 04-25-2025 End: 04-25-[address] Sajan Rowley MD Work Phone: [facility] Start: 04-25-2025 End: 04-25-2025 Patient encounter procedure Noel TAVARES -[facility] Work Phone: Start: 04-25-2025 End: 04-25-2025 ambulatory Sajan Rowley Facility:[facility] Start: 04-23-2025 End: 04-23-2025 Emergency department patient visit Dr. Nick Hughes MD -Emergency Department Work Phone: Start: 04-02-2025 End: 04-02-[address] Sajan Rowley MD Work Phone: -Physical Therapy Start: 04-02-2025 End: 04-02-[address] Sajan Rowley MD -Physical Therapy Work Phone: Start: 02-18-2025 End: 02-18-[address] Mane Solares MD -[facility] Work Phone: Start: 02-18-2025 End: 02-18-[address] Sajan Rowley MD Work Phone: -[facility] Start: 02-14-[address] Yinka Rowley MD -Physical Therapy Work Phone: Start: 02-05-2025 End: 02-05-2025 Patient encounter procedure Lolly TAVARES -[facility] Work Phone: Start: 02-05-2025 End: 02-05-[address] Sajan Rowley MD Work Phone: -[facility] Start: 02-04-[address] Yinka Rowley MD -Physical Therapy Work Phone: Start: 12-20-2024 End: 12-20-[address] Sajan Rowley MD Work Phone: [facility] Work Phone: Start: 12-20-2024 End: 12-20-[address] Sajan Rowley MD -[facility] Start: 12-20-2024 End: 12-20-2024 ambulatory Sajan Rowley Facility:[facility] Start: 11-04-2024 Non-patient / Non-visit May Lynn rajani -[facility] Work Phone: Start: 11-04-2024 ambulatory Sajan Rowley Faci lity:[facility] Start: 11-01-2024 End: 11-01-2024 Patient encounter procedure Suzi OMER -[facility] Work Phone: Start: 11-01-2024 End: 11-01-2024 ambulatory Sajan Rowley Facility:[facility] Start: 11-01-2024 End: 11-01-2024 ambulatory Sajan Rowley Facility:[facility] Start: 10-28-2024 End: 10-28-[address] Sajan Rowley MD Work Phone: [facility] Work Phone: Start: 10-28-2024 End: 10-28-[address] Mane Solares MD -Cardiovascular Services Work Phone: Start: 10-28-2024 End: 10-28-2024 ambulatory Sajan Rowley Facility:[facility] Start: 10-14-2024 End: 10-14-[address] Mane Solares MD -[facility] Work Phone: Start: 10-14-2024 End: 10-14-2024 ambulatory Sajan Rowley Facility:[facility] Start: 10-11-2024 ambulatory Sajan Rowley Faci lity:[facility] Start: 08-22-2024 End: 08-22-[address] Sajan Rowley MD -Laboratory, [facility] Start: 08-22-2024 End: 08-22-2024 ambulatory Sajan Rowley Facility:[facility] Start: 09-22-2023 End: 09-22-2023 Admission to same day surgery center Dr. Fidencio Rowley Work Phone: [facility]-Backup Operator/Special Procedures Work Phone: Start: 09-22-2023 End: 09-22-[address] Fidencio Rowley Work Phone: [facility] Work Phone: Start: 09-07-2023 Non-patient / Non-visit Dr. Ulisses Rowley Work Phone: [facility] Start: 08-31-2023 Non-patient / Non-visit Dr. Ulisses Rowley Work Phone: [facility] Start: 08-31-2023 End: 08-31-[address] Fidencio Rowley Work Phone: [facility] Work Phone: Start: 08-31-2023 End: 08-31-[address] Fidencio Rowley Work Phone: [facility]-Cardiovascul ar Services Work Phone: Start: 08-17-2023 End: 08-17-[address] Fidencio Rowley Work Phone: [facility] Work Phone: Start: 08-17-2023 End: 08-17-[address] Fidencio Rowley Work Phone: [facility] Start: 08-06-2023 End: 08-06-[address] Fidencio Rowley Work Phone: [facility] Work Phone: Start: 07-27-2023 End: 07-27-[address] Fidencio Rowley Work Phone: [facility] Work Phone: Start: 06-29-2023 End: 06-29-[address] Fidencio Rowley Work Phone: [facility] Neurology Work Phone: Start: 03-01-2023 Non-patient / Non-visit Dr. Ulisses Rowley Work Phone: [facility] Start: 03-01-2023 End: 03-01-[address] Fidencio Rowley Work Phone: [facility] Work Phone: Start: 03-01-2023 End: 03-01-[address] Fidencio Rowley Work Phone: [facility]-Cardiovascul ar Services Work Phone: Start: 02-23-2023 End: 02-23-[address] Fidencio Rowley Work Phone: [facility] Work Phone: Start: 02-23-2023 End: 02-23-[address] Fidencio Rowley Work Phone: [facility] Work Phone: Start: 02-23-2023 End: 02-23-[address] Fidencio Rowley Work Phone: [facility] Neurology Work Phone: Start: 11-15-2022 End: 11-15-[address] Fidencio Rowley Work Phone: [facility] Work Phone: Start: 10-28-[address] Fidencio Rowley Work Phone: [facility] Start: 10-21-2022 End: 10-21-[address] Fidencio Rowley Work Phone: [facility] Work Phone: Start: 10-21-2022 End: 10-21-[address] Fidencio Rowley Work Phone: [facility]-Cardiovascul ar Services Start: 10-17-2022 End: 10-17-[address] Fidencio Rowley Work Phone: [facility] Start: 10-13-2022 End: 10-13-[address] Fidencio Rowley Work Phone: [facility] Neurology Start: 08-12-2022 Non-patient / Non-visit Dr. Ulisses Rowley Work Phone: [facility] Start: 08-09-2022 End: 08-09-[address] Fidencio Rowley Work Phone: [facility] Work Phone: Start: 08-09-2022 End: 08-09-[address] [facility] Start: 07-28-2022 End: 07-28-[address] Fidencio Rowley Work Phone: [facility] Start: 07-19-2022 End: 07-19-[address] [facility] Row[facility] Start: 06-27-2022 Non-patient / Non-visit Dr. Ulisses Rowley Work Phone: [facility] Start: 06-24-2022 End: 06-24-[address] Fidencio Rowley Work Phone: [facility] Work Phone: Start: 06-24-2022 End: 06-24-[address] Fidencio Rowley Work Phone: [facility]-Pulmonary Services/Neurology Start: 06-15-2022 Non-patient / Non-visit Dr. Ulisses Rowley Work Phone: [facility] Start: 06-15-2022 End: 06-15-[address] Fidencio Rowley Work Phone: [facility] Work Phone: Start: 06-15-2022 End: 06-15-[address] Fidencio Rowley Work Phone: [facility]-Cardiovascul ar Services Start: 06-14-2022 End: 06-14-2022 Patient encounter procedure [facility]-Cat Scan, [facility] Start: 06-03-2022 End: 06-03-2022 ambulatory [facility] Work Phone: Start: 06-03-2022 End: 06-03-2022 Patient encounter procedure [facility]-Candace [facility]tegawn Start: 09-03-2021 End: 09-03-2021 ambulatory MERRILL FLEMING [facility] Ambulatory Start: 09-03-2021 End: 09-03-2021 Office outpatient new 45 minutes Merrill Fleming DO Work Phone: [facility] Comment on above: [...] Start: 09-03-2021 End: 09-03-2021 Preprocedural examination done Merrill Fleming DO Work Phone: [facility] Start: 10-29-2015 End: 10-30-2015 Ambulatory GREG CHAVEZ [facility] Procedures Date Procedure Procedure Detail Performing Clinician Start: 04-25-[address] Yinka Rowley MD Work Phone: Start: 04-23-2025 Radex spine lumbosac ral 2/[address] Sajan Rowley MD Work Phone: Start: 04-23-[address] 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 Comment on above: CABG x 3: CORCORAN to LA D, SVG to D1, SVG to RPDA 01/03/14 History of coronary artery bypass grafting History of coronary artery bypass surgery Merrill Fleming [employer] Work Phone: Plan of Treatment Date Care Activity Detail Author Start: 04-25-2025 End: 04-25-2025 Patient encounter procedure De[facility] Work Phone: Start: 04-25-2025 Urine culture Urine Culture [facility] Start: 04-23-2025 [facility] Start: 11-01-2024 Patient referral [facility] Work Phone: Start: 09-22-2023 Patient discharge [facility] Start: 02-24-2023 Patient referral [facility] Work Phone: Start: 10-28-2022 [facility] Start: 2006 Fall risk assessment Falls Risk Assessment [facility] Start: 1953 Depression screening using PHQ-9 (Patient Health Questionnaire 9) score Depression Screening (PHQ-2/9) [facility] Start: 1951 Diabetic foot examination Foot Exam [facility] Start: 1951 Microalbumin measurement, urine, quantitative Urine Microalbumin [facility] Start: 1951 Ophthalmic examination and evaluation Ophthalmology Exam [facility] Start: 1944 History and physical examination, annual for health maintenance Wellness Visit [facility] Start: 1941 Hemoglobin A1c measurement A1C [facility] Start: 1941 Tetanus vaccination Tetanus: Every 10yrs [facility] Antibody to lupus La protein measurement [facility] Antibody to SS-A measurement [facility] Centromere protein B Ab [Units/volume] in Serum [facility] Chromatin Ab [Units/volume] in Serum or Plasma [facility] DNA double strand Ab [Units/volume] in Serum [facility] Cammie-1 extractable nuc lear Ab [Units/volume] in Serum [facility] Neutrophil cytoplasm ic Ab.classic [Units/volume] in Serum [facility] Nuclear Ab [Presence ] in Serum [facility] P-ANCA measurement [facility] Patient Education ED Fracture, V ertebral Compression [facility] Work Phone: Patient referral [facility] Work Phone: Radionuclide imaging of perfusion of myocardium under exercise stress [facility] SCL-70 extractable nuclear Ab [Units/volume] in Serum by Immunoassay [facility] Quispe extractable nuclear Ab [Presence] in Serum [facility] US Carotid arteries [facility] Immunizations Immunization Date Immunization Notes Care Provider Fa maurice 06-05-2023 Pneumococcal Vaccine PCV20 (Prevnar 20) Dr. Sajan Rowley MD Work Phone: [facility] 05-16-2022 Garthlouise Mason Fieldse [employer] Booster Dr. Sajan Rowley MD Work Phone: [facility] 05-11-2022 influenza, injectabl e, quadrivalent, preservative free Dr. Sajan Rowley MD Work Phone: [facility] Payers Date Payer Category Payer Self-pay [id number] 2012 Private Health Insurance [id number] 2006 Medicare MEDICARE MEDICAR E PART A & B [id number] 2006-Present [phone] [facility] [id number]S [address] [address] [place] [address] [id number] 2006 Medicare [id number] 1940 Unknown [id number] Unknown [id number] .[id number] Unknown [id number] .462 Unknown [id number] .462 Unknown [id number] .462 Unknown [id number] .462 Unknown [id number] .462 Unknown [id number] [id number] .462 Unknown [id number] .462 Unknown [id number] .462 Unknown [id number] .462 Unknown [id number] .462 Unknown [id number] [id number] .462 Unknown [id number] [id number] .462 Unknown [id number] .462 Unknown [id number] .462 Unknown [id number] .462 Social History Date Type Detail Facility Start: 09-03-2021 End: 04-23-2025 Tobacco smoking status NHIS Ex-smoker [facility] Start: 09-03-2021 Tobacco use and exposure Smokeless tobacco non-user [facility] Start: 09-03-2021 Alcohol intake Ex-drinker (finding) [facility] Start: 1940 Sex Assigned At Not on file [facility] Start: 08-24-2021 End: 09-03-2021 Exposure to SARS-CoV-2 (event) Not sure [facility] Start: 01-17-2022 End: 09-22-2023 Tobacco smoking status KYIS Unknown if ever smoked [facility] Start: 10-21-2015 None [facility] Start: 10-21-2015 With Family [facility] Start: 01-07-2019 Non-smoker [facility] Start: 1940 Sex Assigned At Male [facility] Start: 10-31-2024 Sex Male (finding) [facility] Sex Male [facility] Clinical Notes 01-03-2014 to 04-25-2025 Note Date & Type Note Facility 04-25-2025 Progress note [facility] 04-25-2025 Progress note Note Date/Time April 25, 2025 3:34pm [facility] [address], [address] [place] [address] OFFICE VISIT Date of Service: 04/25/25 MR#: [id number] Acct: [id number] Name: GIA VIRAMONTES Rep #: [id number] : 1940 Provider: ANUSHA Rod Age/Sex: 84/M Location: [facility] Status: Signed Intake Vital Signs 04/23/25 09:23 04/25/25 15:12 Height 6 ft BP 156/66 H Blood Pressure Location Lt brachial Position Sitting Respiration 16 Pulse 48 L Pulse Source NIBP Temp 98.7 F Temp Source Oral Pulse Oximetry (%) 96 Oxygen Delivery Method room air Intake Visit Reasons: CONCERN FOR UTI Chief Complaint: confusion, weak, decreased urinary output [employer] Field Technician Required: No Is patient in pain?: No Allergies atorvastatin calcium (From Lipitor) Adverse Reaction (Verified 04/25/25 15:12) body aches ezetimibe (From Zetia) Adverse Reaction (Verified 04/25/25 15:12) body aches rosuvastatin calcium (From Crestor) Adverse Reaction (Verified 04/25/25 15:12) body aches Have you fallen in the past year?: Yes Nurse's Note: confusion, weak, decreased urinary output x 1 week. occasional abd pain/back pain. denies blood, fever. concern for UTI. pt HR 48, pt states typically higher--reported to . [facility] Medical History Hyperlipemia Peripheral arterial disease Hypertension Abnormal nuclear stress test Type 2 diabetes mellitus Family history of cerebral aneurysm Polyneuropathy Dysrhythmia, cardiac Hypothyroidism Stenosis of right carotid artery Essential (primary) hypertension Atherosclerosis of coronary artery of [place] heart without angina pectoris Personal history of [...] cholesterol Mother Arthritis Heart disease Social History household members: spouse Smoking Status: Former smoker Tobacco: How many years used: 8 how long ago did patient quit smokin years ago second hand exposure: No alcohol intake: never substance use type: does not use caffeine: Yes Type: coffee Number of servings: 2 nadine/synagogue: [employer] seatbelt use: always additional social history: DOES NOT USE IBUPROFEN HPI HPI Chief Complaint: confusion, weak, decreased urinary output Details: GIA VIRAMONTES, is a 84 M who presents to the office today for complaint of confusion, weakness, decreased urinary output for the past 2 weeks. Patient states he has had increased falls over the past several weeks as well. Patient does bring in his son-in-law with him today who is concern for possible UTI. Patient denies dysuria, hematuria or loss of bladder control. No fever, chills,sweats. No nausea, vomiting, diarrhea. Son-in-law does state that the patient has not been hydrating as well as the family believes he should. No other associated symptoms or alleviating/aggravating factors. ROS Const Constitutional: Positive for other (ROS negative x6 except what was placed in HPI) Exam Const General: cooperative and healthy appearing Resp Effort & Inspection: normal respiratory effort Auscultation: Bilateral: Clear to Auscultation Cardio Rate: bradycardic Rhythm: abnormal rhythm irregularly irregular GI Auscultation: normal bowel sounds General: No CVA tenderness Psych Appearance: grossly normal Mental Status: mental status grossly normal Results POC Urinalysis Dip (Clinic) Office Urine Color Dk Yellow Last Edit by Marilee Lee on 04/25/25 15:19 Office Urine Clarity Clear Last Edit by Marilee Lee on 04/25/25 15:19 Office Urine Glucose Negative Last Edit by Marilee Lee on 04/25/25 15:19 Office Urine Ketones Negative Last Edit by Marilee Lee on 04/25/25 15:19 Off Ur Spec Galien 1.025 Last Edit by Marilee Lee on 04/25/25 15:19 Office Urine pH 6.0 Last Edit by Marilee Lee on 04/25/25 15:19 Office Urine Bilirubin Negative Last Edit by Marilee Lee on 04/25/25 15: 19 Office Urine Urobilinogen Negative Last Edit by Marilee Lee on 04/25/25 15:19 Office Urine Blood Negative Last Edit by Marilee Lee on 04/25/25 15:19 Office Urine Blood Hemolyzed Negative Last Edit by Marilee Lee on 15:19 Office Urine Protein Trace Last Edit by Marilee Lee on 04/25/25 15:19 Office Urine Nitrate Negative Last Edit by Marilee Lee on 04/25/25 15:19 Off Ur Leukocytes Negatve Last Edit by Marilee Lee on 04/25/25 15:19 Coding Level of Care Code Off vis,est,level 4 Diagnoses Dehydration E86.0 Generalized weakness R53.1 Assessment and Plan Assessment and Plan (1) Dehydration: Status: Acute (2) Generalized weakness: Status: Acute Orders: Orders POC Urinalysis Dip (Clinic) Today R35.0 - Frequency of micturition Culture, Urine Today R35.0 - Frequency of micturition Plan UA in the office today normal other than mild proteinuria. Patient advised to report to the ED for further evaluation and treatment with his bradycardia, dehydration and increased blood pressure along with the fatigue and recurrent falls. Patient and son-in-law verbalized understanding and agreement with all the above. Clinical Quality Measures Falls Risk Screening/Assistive Devices Have you fallen in the past year?: Yes 04/25/25 0923 <Electronically signed by Noel TAVARES> Date _ Noel Cristino PA PA Cosigner Signature: Date (if applicable) CC: ~ [employer] Work Phone: 1(176) 356-991510-15-2025 Discharge summary [facility] Medical Records Department [address] [place] [address] Emergency Department Summary 04/23/25 MR#: [id number] Acct: [id number] Name: GIA VIRAMONTES Rep #:[id number] 1 : 1940 84 From: Nick Hughes MD PCP: Dr. Sajan Rowley MD Status :REG ER Location: ED HPI History of Present Illness Chief Complaint: Back Detail of Chief Complaint: Onset after near fall 2 to 3 months ago. Also fatigue Informant: patient and family Onset/Context/Timing Onset: Month(s) Context: Sudden Onset Chronic pain [...] pain for the past 2 to 3 monthsafter near fall overa ladder and lifting boxes. Patient denies bowel or bladder dysfunction. Patient denies radicular pain. Patient denies foot drop. Daughter informing that he has been fatigued and has less energy. Patient denies dysuria, frequency, urgency or hematuria. Patient denies fever, chills night sweats. Patient denies cough, dyspnea, Cuervo exertion, orthopnea or PND. Patient has no history of osteoporosis or osteopenia. Prior similar symptoms: [facility] Medical History Hyperlipemia Peripheral arterial disease Hypertension Abnormal nuclear stress test Type 2 diabetes mellitus Family history of cerebral aneurysm Polyneuropathy Dysrhythmia, cardiac Hypothyroidism Stenosis of right carotid artery Essential (primary) hypertension Atherosclerosis of coronary artery of [place] heart without angina pectoris Personal history of malignant melanoma Nonhealing surgical wound Open wound of left forearm Former smoker Melanoma in situ of left upper extremity Vision problems Vascular disease Neuropathy Kidney stones Hearing problem Gout Cataracts, bilateral Arthritis Screening for colon cancer Gangrenous cholecystitis Diabetes mellitus Home Medications ?Medication ?Instructions ?Recorded ?Last Taken ?Type gemfibrozil 600 mg tablet 600 mg PO BID cholesterol 01/08/21 History allopurinol 300 mg tablet 300 mg PO DAILY GOUT 6 01/08/21 History pantoprazole 40 mg tablet,delayed 40 mg PO DAILY reflu x 10/21/15 01/08/21 History release amlodipine 10 mg tablet 10 mg PO DAILY BP 05/21/19 0 09/22/23 History aspirin 81 mg tablet,delayed 81 mg PO DAILY 06/03/19 0 09/22/23 History release (Adult Aspirin Regimen) cyanocobalamin (vitamin B-12) 3,000 mcg PO DAILY 06/1601/07/21 History 1,000 mcg capsule levothyroxine 50 mcg tablet 50 mcg PO DAILY THYROID 01/08/21 History lisinopril 40 mg tablet See Rx Instructions .Route 1 09/05/20 09/22/23 Rx .COMPLEX #90 tabs cholecalciferol (vitamin D3) 25 100 mcg PO DAILY 07/28 Unknown History mcg (1,000 unit) capsule glimepiride 4 mg tablet 4 mg PO DAILY 07/28/22 Unkno wn History vitamins A,C,O-qkhw-lvstbh 4,296 1 cap PO BID 02/23/23 Unknown History mcg-226 mg-90 mg capsule (PreserVision AREDS) omega 5-aec-tkn-fish oil 1,200 mg 2 cap PO DAILY 01/05 Unknown History (144 mg-216 mg) capsule (Fish Oil) pregabalin 50 mg capsule 50 mg PO TID 02/05/25 Unknow n History duloxetine 60 mg capsule,delayed 60 mg PO QHS #90 caps 02/18/25 Unknown Rx release hydrocodone-acetaminophen 5-325mg 1 tab PO QD-TID PRN pain 02/18/25 Unknown History 5mg-325mg mirtazapine 15 mg tablet 15 mg PO QHS 02/18/25 Unknow n History hydrocodone-acetaminophen 5-325mg 1 tab PO Q6H PRN PRN [...] cholesterol Mother Arthritis Heart disease Surgical History History of cholecystectomy History of left heart catheterization (06/10/19) 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) Status post laparoscopic cholecystectomy Social History household members: spouse Smoking Status: Former smoker Tobacco: How many years used: 8 how long ago did patient quit smokin years ago second hand exposure: No alcohol intake: never substance use type: does not use caffeine: Yes Type: coffee Number of servings: 2 nadine/synagogue: [employer] seatbelt use: always additional social history: DOES NOT USE IBUPROFEN ROS ROS ED Constitutional Constitutional ED: Denies chills, fever(s), subjective, sweats or weight loss Eyes Eyes: Denies blurry vision or change in vision ENT ENT ED: Denies rhinorrhea or sore throat Cardiovascular Cardiovascular: Denies chest pain, orthopnea, palpitations or paroxysmal nocturnal dyspnea Respiratory/Chest Respiratory/Chest: Reports dyspnea and other Details: Dyspnea is been chronic for over a year. ; Denies dyspnea on exertion, orthopnea or paroxysmal nocturnal dyspnea Gastrointestinal Gastrointestinal: Denies abdominal pain, melena, nausea or vomiting Genitourinary Genitourinary ED: Denies dysuria, hematuria or urinary frequency Musculoskeletal Musculoskeletal: Reports back pain; Denies arthralgias or myalgias Integumentary Denies rash Psychiatric Psychiatric: Denies anxiety or depression Endocrine Endocrinology: Denies cold intolerance or heat intolerance Hematologic/Lymphatic Hematologic/Lymphatic: Denies easy bleeding or easy bruising EXAM Physical Exam Const Vital Signs: 04/23/25 09:23 Temperature 98.7 F Temperature Source Oral Pulse Rate 78 Respiratory Rate 16 Blood Pressure 119/61 Blood Pressure Mean 80 Pulse Ox 98 Oxygen Delivery Method Room Air Positive well nourished and well developed General Appearance ED: well developed and NAD; Negative for pallor HEENT Reports dry mucous membranes HEENT Narrative: Head is atraumatic and normocephalic. Ears normal. Nares patent Mouth ED: Yes dry mucous membranes Mouth: dry mucous membranes Eyes PERRL and EOMs intact bilaterally General Eye ED: Negative for pale conjunctiva Neck no lymphadenopathy, supple and no JVD Resp normal respiratory effort and clear to auscultation bilaterally Cardio regular rate, regular rhythm, S1 normal heart sound and S2 normal heart sound; Negative for no murmurs Cardio Narrative: Patient may have ectopic beats. There is definitely a grade 1-2 crescendo decrescendo and systolic murmur noted. GI normal to inspection, nondistended, normoactive bowel sounds, soft to palpation,non-tender, non-distended and no masses GI Narrative: There is no pulsatile mass or abdominal bruit. Back/Spine normal to inspection Back/Spine Narrative: Patient has lumbar tenderness and more specifically right paralumbar discomfort. There is no evidence of trauma. Lumbar Spine / Lower Back: straight leg raise negative bilaterally Extremity normal to inspection and no clubbing, cyanosis or edema Neuro oriented x3 and no sensory deficits noted Plantar Reflex: Downgoing: bilateral Psych mental status grossly normal Skin no rashes or lesions noted and no wounds General Skin Exam: Negative for jaundice or pallor MDM MDM MDM Narrative Medical decision making narrative: Differential diagnosis would include musculoskeletal strain, compression fracture, pathologic fracture, with a complaint of fatigue need to rule out anemia, renal disease and electrolyte abnormality. History & Record Review Additional record(s) reviewed:: Prior inpatient record (He was admitted for hypoxia due to acute viral illness December 2023.), Prior outpatient record (Outsiderecord dated January 11, 2025 for diabetic ulcer of toe right foot was reviewed.), Prior ED visit and Prior labs Lab Data Attestation: I reviewed the patient's lab results. Lab results narrative: CBC reveals mild anemia. This is chronic finding. Competence metabolic panel reveals elevated BUN/creatinine. He is approximate baseline. Glucose is elevated 151. CO2 is slightly decreased with a normal anion gap. Alkaline phosphatase is elevated 169. This is patient's baseline as well. Labs: Laboratory Results - last 24 hr 04/23/25 10:03 WBC 7.4 RBC 3.99 L Hgb 11.9 L Hct 36.5 L MCV 91.5 MCH 29.8 MCHC 32.6 RDW Std Deviation 51.8 H RDW Coeff of Yan 15.9 H Plt Count 209 MPV 10.7 Immature Gran % (Auto) 0.400 Neut % (Auto) 57.9 Lymph % (Auto) 25.3 Mcnairy % (Auto) 9.9 Eos % (Auto) 6.0 H Baso % (Auto) 0.5 Absolute Neuts (auto) 4.3 Absolute Lymphs (auto) 1.86 Nucleated RBC % 0 Sodium 143 Potassium 4.2 Chloride 115 H Carbon Dioxide 16.3 L Anion Gap 12 BUN 37 H Creatinine 1.30 H Estim Creat Clear Calc 47.26 L Est GFR (MDRD) Non-Af 55 L BUN/Creatinine Ratio 28.8 H Glucose 151 H Calcium 9.3 Total Bilirubin 0.23 AST 24 ALT 14 Alkaline Phosphatase 169 H Total Protein 6.7 Albumin 3.6 Globulin 3.1 Albumin/Globulin Ratio 1.2 Radiography Chest X-Ray - ED: Read by ED Physician (Three-view x-ray reveals a compression fracture L1 of unknown age. The only imaging for comparison is an abdominal CT in 2020. The compression fracture was notnoted at that time or present.) Diagnostic Testing: Clinical Impression(s) from Imaging Studies Lumbar Spine X-Ray 04/23/25 10:15 IMPRESSION: Compression fractures of the lumbar spine are age indeterminate. Most severe isL1, grade 3. Reading Location: [id number] Treatment and Re-Evaluation Narrative: Patient and daughter were informed of results. He was referred to Dr. Love because of the amount of compression. MRI was not obtained emergently since he has no neurologic deficits or focal findings Discharge Plan Triage Chief Complaint: Back ED Provider: Nick Hughes Dx/Rx/DC Orders Clinical Impression: Compression fracture of L1 vertebra, Renal insufficiency, Peripheral arterial disease, Hyperlipemia, Carotid artery stenosis, Generalized weakness, Chronic anemia Instructions: ED Fracture, Vertebral Compression Prescriptions: New hydrocodone-acetaminophen 5-325 mg tablet 1 tab PO Q6H PRN PRN (Reason: Pain) 3 Days Qty: 10 0RF No Action amlodipine 10 mg tablet 10 mg PO DAILY cyanocobalamin (vitamin B-12) 1,000 mcg capsule 3,000 mcg PO DAILY cholecalciferol (vitamin D3) 25 mcg (1,000 unit) capsule 100 mcg PO DAILY glimepiride 4 mg tablet 4 mg PO DAILY PreserVision AREDS 4,296 mcg-226 mg-90 mg capsule 1 cap PO BID hydrocodone-acetaminophen 5-325 mg tablet 1 tab PO QD-TID PRN (Reason: pain) mirtazapine 15 mg tablet 15 mg PO QHS duloxetine 60 mg capsule,delayed release(DR/EC) 60 mg PO QHS Qty: 90 2RF pregabalin 50 mg capsule 50 mg PO TID gemfibrozil 600 MG tablet 600 mg PO BID Patient Comments: HAD 10/26/15 pantoprazole 40 MG tablet 40 mg PO DAILY Patient Comments: gerd HAD TODAY 10/26/15 allopurinol 300 MG tablet 300 mg PO DAILY levothyroxine 50 mcg tablet 50 mcg PO DAILY Patient Comments: TAKE 1 TABLET BY MOUTH ONCE DAILY omega 7-qof-fad-fish oil [Fish Oil] 1,200 (144-216) mg capsule 2 cap PO DAILY aspirin [Adult Aspirin Regimen] 81 mg tablet,delayed release (DR/EC) 81 mg PO DAILY lisinopril 40 mg tablet See Rx Instructions .ROUTE .COMPLEX Qty: 90 4RF Dose Instruction: Take 1 tablet by mouth once daily Rx Instructions: Take 1 tablet by mouth once daily Primary Care Provider: Sajan Rowley Referrals: Alfredo Goldberg MD [Med Staff - Active Staff, Orthopedics] - 5-7 Days Sajan Rowley MD [Primary Care Provider, Family Practice] Print Language: Japanese Disposition Disposition: Home, Self Care What to do if you have Problems For any increased pain, shortness of breath, bleeding, nausea or vomiting, chestpain, or any unexpected problems, contact your Primary Care Provider. Call [facility] ([phone]) or report tothe closest Emergency Room. Call 911 if necessary. 04/23/25 1133 Cosigner Signature (if applicable): CC: Dr. Sajan Rowley MD ~ Signed [facility]10-15-2025 Radiology Diagnostic study note [facility] Imaging Services [address] [place] [address] Lumbar Spine 2 or 3 Views MR#: [id number] Acct: [id number] Name: GIA VIRAMONTES Rep #: [id number] : 1940 M 84 From: Chelsea Dalal MD PCP: Dr. Sajan Rowley MD Status: REG ER Study:Lumbar Spine 2 or 3 Views Date of Exam: 04/23/25 Exam# [id number] Ordering Dr: Edilson Hughes MD PROCEDURE: LUMBAR SPINE 2 OR 3 VIEWS 04/23/2025 REASON FOR EXAM: INJURY/PAIN TECHNIQUE: Procedure Code: RADSPLL Modality: DX Procedure: LUMBAR SPINE 2 OR 3 VIEWS COMPARISON: None FINDINGS: Vertebrae: Grade 3 anterior wedge compression fracture of L1. Minimal biconcavecompression of L2, L3. Discs: Mild disc space narrowing L2/3, L3/4. Lower lumbar facet hypertrophy. Alignment: Very mild curvature thoracolumbar spine to the left. Mild kyphosis thoracolumbar spine. Other: Aortic atherosclerosis. RAD/Lumbar Spine 2 or 3 Views IMPRESSION: Compression fractures of the lumbar spine are age indeterminate. Most severe isL1, grade 3. Reading Location: [id number] CC: Dr. Sajan Rowley MD; Dr. Nick Hughes MD ~ Civil Drafter: Signed [facility]09-24-2025 Discharge summary Author Denia Elan [facility] Note Date/Time April 02, 2025 7:00pm [facility] Physical Therapy [facility] [address] [place] [address]. [address] [place] [address] / REHABILITATION SERVICES DISCHARGE SUMMARY MR#: [id number] Acct: [id number] Name: GIA VIRAMONTES Rep #: [id number] 1 : 1940 84 From: Denia Ansari MP T Referring Dr.: Dr. Sajan Rowley MD Stat [...] please feel free to call me at [phone]. Thank you for the referral of thispatient. Sincerely, Denia Ansari, MPT Balance/Gait/Functional tests Balance/Special Test Scores Functional Gait Assessment Score: 18 % Disability: 40.0000 CATSIB Score (Max score 120 seconds): 57 Lower Extremity Functional Score: 54 30 Second Chair Rise Test Seconds: 10 Improvement % Improvement: 40 <Electronically signed by Denia Ansari MPT> 04/02/25 5577 CC: Dr. Sajan Rowley MD ~ Signed [facility] Work Phone: 1(994) 903-373809-24-2025 Discharge summary [facility] Physical Therapy [facility] [address] [place] [address] / REHABILITATION SERVICES DISCHARGE SUMMARY MR#: [id number] Acct: [id number] Name: GIA VIRAMONTES Rep #: [id number] 1 : 1940 84 From: Denia Ansari MP T Referring Dr.: Dr. Sajan Rowley MD Stat [...] please feel free to call me at [phone]. Thank you for the referral of thispatient. Sincerely, Denia Ansari, MPT Balance/Gait/Functional tests Balance/Special Test Scores Functional Gait Assessment Score: 18 % Disability: 40.0000 CATSIB Score (Max score 120 seconds): 57 Lower Extremity Functional Score: 54 30 Second Chair Rise Test Seconds: 10 Improvement % Improvement: 40 04/02/25 1345 CC: Dr. Sajan Rowley MD ~ Signed [facility]07-30-2025 Evaluation note* Diagnosis Onset Date Resolution Status Admit Date Carotid artery stenosis acute 2024 12:51pm Peripheral arterial disease acute February 05, 2025 12:51pm Bilateral carotid bruits acute February 18, 2025 9:54am Polyneuropathy acute February 9:54am [facility] Work Phone: 1(696) 679-483807-30-2025 Evaluation note* Diagnosis Onset Date Resolution Status Admit Date Carotid artery stenosis acute 2024 12:51pm Peripheral arterial disease acute February 05, 2025 12:51pm Bilateral carotid bruits acute February 18, 2025 9:54am Polyneuropathy acute February 9:54am Dehydration acute April 25, 2025 2:59pm Generalized weakness inactive 2024 2:59pm [facility] Work Phone: 1(884) 172-196504-25-2025 Evaluation note* Diagnosis Onset Date Resolution Status Admit Date Hyperlipemia acute November 01, 2024 7:50am 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, 2014 resolved November 01, 2024 7:50am Dysrhythmia, cardiac inactive Apr2024 7:50am Essential (primary) hypertension inactive November 01, 2024 7:50am Stenosis of right carotid artery inactive November 01, 2024 7:50am Carotid artery stenosis acute J 2024 12:51pm Peripheral arterial disease acute February 05, 2025 12:51pm [facility] Work Phone: [phone]) 989-782904-07-2025 Evaluation note* Diagnosis Onset Date Resolution Status Admit Date Bilateral carotid bruits acute October 14, 2024 1:04pm Polyneuropathy acute October 14, 2024 1:04pm [facility] Work Phone: [phone] 450-651404-07-2025 Evaluation note* Diagnosis Onset Date Resolution Status Admit Date Bilateral carotid bruits acute October 14, 2024 1:04pm Polyneuropathy acute October 14, 2024 1:04pm Hyperlipemia acute November 01, 2024 7:50am 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, 2014 resolved November 01, 2024 7:50am Dysrhythmia, cardiac inactive 2024 7:50am Essential (primary) hypertension inactive November 01, 2024 7:50am Stenosis of right carotid artery inactive November 01, 2024 7:50am [facility] Work Phone: 1([phone]) 847-198402-25-2022 History of Present illness Narrative* Merrill Fleming, DO - 09/03/2021 10:15 AM EST HISTORY Patient Name: Gia Viramontes Date of Exam: 09/03/2021 Date of Surgery: 09/03/21 Diagnosis: Fourth trochlear nerve palsy right eye Reason for visit/consultation: Medical risk stratification for same day surgery History of current illness: Gia Viramontes is a 81 y.o. male who presents for preoperative medical risk stratification prior to eye surgery at the request of Dr. Castro. His medical conditions include: CAD s/p triple bypass 2017- doing well follows with Cardiology, no chest [...] Q-T Interval (corrected) QTC Calculation (Bezet) P Silver[place] R Silverhill T Silverhill IMPRESSION/PLAN: 81 y.o. female being seen today for preoperative medical risk stratification for same-day eye surgery at the request of Dr. Castro. The patient appears stable from a cardiovascularstandpoint, [...] Fleming D.O. Family Medicine / Sports Medicine [facility] Primary Care Physicians documented in this [id number] Evaluation note* Diagnosis Onset Date Resolution Status Dysrhythmia, cardiac acute Essential (primary) hypertension chronic Hyperlipemia chronic Stenosis of right carotid artery chronic 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, 2014 resolved Cold sore acute [facility] Work Phone: Discharge summary Author Nick Hughes [facility] Note Date/Time April 23, 2025 1 1:33am [facility] Medical Records Department [address] [place] [address] Emergency Department Summary 04/23/25 MR#: [id number] Acct: [id number] Name: GIA VIRAMONTES Rep #:[id number] 1 : 1940 84 From: Nick Hughes MD PCP: Dr. Sajan Rowley MD Status :REG ER Location: ED HPI History of Present Illness Chief Complaint: Back Detail of Chief Complaint: Onset after near fall 2 to 3 months ago. Also fatigue Informant: patient and family Onset/Context/Timing Onset: Month(s) Context: Sudden Onset Chronic pain [...] pain for the past 2 to 3 monthsafter near fall over a ladder and lifting boxes. Patient denies bowel or bladder dysfunction. Patient denies radicular pain. Patient denies foot drop. Daughter informing that he has been fatigued and has less energy. Patient denies dysuria, frequency, urgency or hematuria. Patient denies fever, chills night sweats. Patient denies cough, dyspnea, Cuervo exertion, orthopnea or PND. Patient has no history of osteoporosis or osteopenia. Prior similar symptoms: No [facility] Medical History Hyperlipemia Peripheral arterial disease Hypertension Abnormal nuclear stress test Type 2 diabetes mellitus Family history of cerebral aneurysm Polyneuropathy Dysrhythmia, cardiac Hypothyroidism Stenosis of right carotid artery Essential (primary) hypertension Atherosclerosis of coronary artery of [place] heart without angina pectoris Personal history of malignant melanoma Nonhealing surgical wound Open wound of left forearm Former smoker Melanoma in situ of left upper extremity Vision problems Vascular disease Neuropathy Kidney stones Hearing problem Gout Cataracts, bilateral Arthritis Screening for colon cancer Gangrenous cholecystitis Diabetes mellitus Home Medications ?Medication ?Instructions ?Recorded ?Last Taken ?Type gemfibrozil 600 mg tablet 600 mg PO BID cholesterol 01/08/21 History allopurinol 300 mg tablet 300 mg PO DAILY GOUT 6 01/08/21 History pantoprazole 40 mg tablet,delayed 40 mg PO DAILY reflu x 10/21/15 01/08/21 History release amlodipine 10 mg tablet 10 mg PO DAILY BP 05/21/19 0 09/22/23 History aspirin 81 mg tablet,delayed 81 mg PO DAILY 06/03/19 0 09/22/23 History release (Adult Aspirin Regimen) cyanocobalamin (vitamin B-12) 3,000 mcg PO DAILY 06/1601/07/21 History 1,000 mcg capsule levothyroxine 50 mcg tablet 50 mcg PO DAILY THYROID 01/08/21 History lisinopril 40 mg tablet See Rx Instructions .Route 1 09/05/20 09/22/23 Rx .COMPLEX #90 tabs cholecalciferol (vitamin D3) 25 100 mcg PO DAILY 07/28 Unknown History mcg (1,000 unit) capsule glimepiride 4 mg tablet 4 mg PO DAILY 07/28/22 Unkno wn History vitamins A,C,G-pkok-jmensv 4,296 1 cap PO BID 02/23/23 Unknown History mcg-226 mg-90 mg capsule (PreserVision AREDS) omega 0-osk-axu-fish oil 1,200 mg 2 cap PO DAILY 01/05 Unknown History (144 mg-216 mg) capsule (Fish Oil) pregabalin 50 mg capsule 50 mg PO TID 02/05/25 Unknow n History duloxetine 60 mg capsule,delayed 60 mg PO QHS #90 caps 02/18/25 Unknown Rx release hydrocodone-acetaminophen 5-325mg 1 tab PO QD-TID PRN pain 02/18/25 Unknown History 5mg-325mg mirtazapine 15 mg tablet 15 mg PO QHS 02/18/25 Unknow n History hydrocodone-acetaminophen 5-325mg 1 tab PO Q6H PRN PRN [...] cholesterol Mother Arthritis Heart disease Surgical History History of cholecystectomy History of left heart catheterization (06/10/19) 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) Status post laparoscopic cholecystectomy Social History household members: spouse Smoking Status: Former smoker Tobacco: How many years used: 8 how long ago did patient quit smokin years ago second hand exposure: No alcohol intake: never substance use type: does not use caffeine: Yes Type: coffee Number of servings: 2 nadine/synagogue: [employer] seatbelt use: always additional social history: DOES NOT USE IBUPROFEN ROS ROS ED Constitutional Constitutional ED: Denies chills, fever(s), subjective, sweats or weight loss Eyes Eyes: Denies blurry vision or change in vision ENT ENT ED: Denies rhinorrhea or sore throat Cardiovascular Cardiovascular: Denies chest pain, orthopnea, palpitations or paroxysmal nocturnal dyspnea Respiratory/Chest Respiratory/Chest: Reports dyspnea and other Details: Dyspnea is been chronic for over a year. ; Denies dyspnea on exertion, orthopnea or paroxysmal nocturnal dyspnea Gastrointestinal Gastrointestinal: Denies abdominal pain, melena, nausea or vomiting Genitourinary Genitourinary ED: Denies dysuria, hematuria or urinary frequency Musculoskeletal Musculoskeletal: Reports back pain; Denies arthralgias or myalgias Integumentary Denies rash Psychiatric Psychiatric: Denies anxiety or depression Endocrine Endocrinology: Denies cold intolerance or heat intolerance Hematologic/Lymphatic Hematologic/Lymphatic: Denies easy bleeding or easy bruising EXAM Physical Exam Const Vital Signs: 04/23/25 09:23 Temperature 98.7 F Temperature Source Oral Pulse Rate 78 Respiratory Rate 16 Blood Pressure 119/61 Blood Pressure Mean 80 Pulse Ox 98 Oxygen Delivery Method Room Air Positive well nourished and well developed General Appearance ED: well developed and NAD; Negative for pallor HEENT Reports dry mucous membranes HEENT Narrative: Head is atraumatic and normocephalic. Ears normal. Nares patent Mouth ED: Yes dry mucous membranes Mouth: dry mucous membranes Eyes PERRL and EOMs intact bilaterally General Eye ED: Negative for pale conjunctiva Neck no lymphadenopathy, supple and no JVD Resp normal respiratory effort and clear to auscultation bilaterally Cardio regular rate, regular rhythm, S1 normal heart sound and S2 normal heart sound; Negative for no murmurs Cardio Narrative: Patient may have ectopic beats. There is definitely a grade 1-2 crescendo decrescendo and systolic murmur noted. GI normal to inspection, nondistended, normoactive bowel sounds, soft to palpation,non-tender, non-distended and no masses GI Narrative: There is no pulsatile mass or abdominal bruit. Back/Spine normal to inspection Back/Spine Narrative: Patient has lumbar tenderness and more specifically right paralumbar discomfort. There is no evidence of trauma. Lumbar Spine / Lower Back: straight leg raise negative bilaterally Extremity normal to inspection and no clubbing, cyanosis or edema Neuro oriented x3 and no sensory deficits noted Plantar Reflex: Downgoing: bilateral Psych mental status grossly normal Skin no rashes or lesions noted and no wounds General Skin Exam: Negative for jaundice or pallor MDM MDM MDM Narrative Medical decision making narrative: Differential diagnosis would include musculoskeletal strain, compression fracture, pathologic fracture, with a complaint of fatigue need to rule out anemia, renal disease and electrolyte abnormality. History & Record Review Additional record(s) reviewed:: Prior inpatient record (He was admitted for hypoxia due to acute viral illness December 2023.), Prior outpatient record (Outsiderecord dated January 11, 2025 for diabetic ulcer of toe right foot was reviewed.), Prior ED visit and Prior labs Lab Data Attestation: I reviewed the patient's lab results. Lab results narrative: CBC reveals mild anemia. This is chronic finding. Competence metabolic panel reveals elevated BUN/creatinine. He is approximate baseline. Glucose is elevated 151. CO2 is slightly decreased with a normal anion gap. Alkaline phosphatase is elevated 169. This is patient's baseline as well. Labs: Laboratory Results - last 24 hr 04/23/25 10:03 WBC 7.4 RBC 3.99 L Hgb 11.9 L Hct 36.5 L MCV 91.5 MCH 29.8 MCHC 32.6 RDW Std Deviation 51.8 H RDW Coeff of Yan 15.9 H Plt Count 209 MPV 10.7 Immature Gran % (Auto) 0.400 Neut % (Auto) 57.9 Lymph % (Auto) 25.3 Mcnairy % (Auto) 9.9 Eos % (Auto) 6.0 H Baso % (Auto) 0.5 Absolute Neuts (auto) 4.3 Absolute Lymphs (auto) 1.86 Nucleated RBC % 0 Sodium 143 Potassium 4.2 Chloride 115 H Carbon Dioxide 16.3 L Anion Gap 12 BUN 37 H Creatinine 1.30 H Estim Creat Clear Calc 47.26 L Est GFR (MDRD) Non-Af 55 L BUN/Creatinine Ratio 28.8 H Glucose 151 H Calcium 9.3 Total Bilirubin 0.23 AST 24 ALT 14 Alkaline Phosphatase 169 H Total Protein 6.7 Albumin 3.6 Globulin 3.1 Albumin/Globulin Ratio 1.2 Radiography Chest X-Ray - ED: Read by ED Physician (Three-view x-ray reveals a compression fracture L1 of unknown age. The only imaging for comparison is an abdominal CT in 2020. The compression fracture was not noted at that time or present.) Diagnostic Testing: Clinical Impression(s) from Imaging Studies Lumbar Spine X-Ray 04/23/25 10:15 IMPRESSION: Compression fractures of the lumbar spine are age indeterminate. Most severe isL1, grade 3. Reading Location: [id number] Treatment and Re-Evaluation Narrative: Patient and daughter were informed of results. He was referred to Dr. Love because of the amount of compression. MRI was not obtained emergently since he has no neurologic deficits or focal findings Discharge Plan Triage Chief Complaint: Back ED Provider: Nick Hughes Dx/Rx/DC Orders Clinical Impression: Compression fracture of L1 vertebra, Renal insufficiency, Peripheral arterial disease, Hyperlipemia, Carotid artery stenosis, Generalized weakness, Chronic anemia Instructions: ED Fracture, Vertebral Compression Prescriptions: New hydrocodone-acetaminophen 5-325 mg tablet 1 tab PO Q6H PRN PRN (Reason: Pain) 3 Days Qty: 10 0RF No Action amlodipine 10 mg tablet 10 mg PO DAILY cyanocobalamin (vitamin B-12) 1,000 mcg capsule 3,000 mcg PO DAILY cholecalciferol (vitamin D3) 25 mcg (1,000 unit) capsule 100 mcg PO DAILY glimepiride 4 mg tablet 4 mg PO DAILY PreserVision AREDS 4,296 mcg-226 mg-90 mg capsule 1 cap PO BID hydrocodone-acetaminophen 5-325 mg tablet 1 tab PO QD-TID PRN (Reason: pain) mirtazapine 15 mg tablet 15 mg PO QHS duloxetine 60 mg capsule,delayed release(DR/EC) 60 mg PO QHS Qty: 90 2RF pregabalin 50 mg capsule 50 mg PO TID gemfibrozil 600 MG tablet 600 mg PO BID Patient Comments: HAD 10/26/15 pantoprazole 40 MG tablet 40 mg PO DAILY Patient Comments: gerd HAD TODAY 10/26/15 allopurinol 300 MG tablet 300 mg PO DAILY levothyroxine 50 mcg tablet 50 mcg PO DAILY Patient Comments: TAKE 1 TABLET BY MOUTH ONCE DAILY omega [id number] oil [Fish Oil] 1,200 (144-216) mg capsule 2 cap PO DAILY aspirin [Adult Aspirin Regimen] 81 mg tablet,delayed release (DR/EC) 81 mg PO DAILY lisinopril 40 mg tablet See Rx Instructions .ROUTE .COMPLEX Qty: 90 4RF Dose Instruction: Take 1 tablet by mouth once daily Rx Instructions: Take 1 tablet by mouth once daily Primary Care Provider: Sajan Rowley Referrals: Alfredo Goldberg MD [Med Staff - Active Staff, Orthopedics] - 5-7 Days Sajan Rowley MD [Primary Care Provider, Family Practice] Print Language: Japanese Disposition Disposition: Home, Self Care What to do if you have Problems For any increased pain, shortness of breath, bleeding, nausea or vomiting, chestpain, or any unexpected problems, contact your Primary Care Provider. Call [facility] ([phone]) or report to the closest Emergency Room. Call 911 if necessary. 04/23/25 1133 <Electronically signed by Nick Hughes MD> Cosigner Signature (if applicable): CC: Dr. Sajan Rowley MD ~ Signed [facility] Work Phone: Evaluation note* Diagnosis [...] melanoma Personal history of malignant melanoma of dinkey skinner smoker Personal history of tobacco use, presenting hazards to health History of gout Personal history of endocrine, metabolic, and immunity disorders documented in this encounter [facility] Work Phone: Evaluation note* Diagnosis Onset Date Resolution Status Dyspnea acute Irregular heart beat noneact ramírez Dysrhythmia, cardiac acute Essential (primary) hypertension chronic Hyperlipemia chronic Stenosis of right carotid artery chronic 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, 2014 resolved [facility] Work Phone: Evaluation note* Diagnosis Onset Date Resolution Status Dyspnea acute Irregular heart beat noneact ramírez Dysrhythmia, cardiac acute Essential (primary) hypertension chronic Hyperlipemia chronic Stenosis of right carotid artery chronic 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, 2014 resolved Family history of cerebral aneurysm acute Peripheral arterial disease acute Polyneuropathy [facility] Work Phone: Evaluation note* Diagnosis Onset Date Resolution Status Peripheral arterial disease chronic Polyneuropathy chronic Stenosis of right carotid artery chronic [facility] Work Phone: Reason for referral (narrative)No reason for referral information availableWKettering [facility] Work Phone: Summary Purpose Family History No [...] FoundDocuments on File Type Date Recorded 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 Advance Directives and Living Will Advance Directive Response Recorded Date/ Time Advance Directives Yes June 10, 2019 9:10am Living Will Yes January 08, 2021 5 :17pm Power of Wildlife Conservation Professor Yes January 08, 2021 5:17pm Advance Directive Response Recorded Date/ Time Advance Directives Yes June 10, 2019 10:10am Living Will Yes January 08, 2021 6 :17pm Power of Wildlife Conservation Professor Yes January 08, 2021 6:17pm Advance Directive Response Recorded Date/ Time Advance Directives on File Yes September 22, 2023 9:23am Name of Medical Power of Wildlife Conservation Professor July Viramontes September 22, 2023 9:23am Advance Directives Yes September 21 9:23am Living Will Yes September 22, 2023 9:23am Power of Wildlife Conservation Professor Yes September 21 9:23am Advance Directive Response Recorded Date/ Time Living Will Yes September 22, 2023 9:23am Do you have a Healthcare Power of Wildlife Conservation Professor? Yes September 22, 2023 9:23am Advance Directives Yes September 21 9:23am Advance Directive Response Recorded Date/ Time Advance Directives Yes September 21 9:23am Advance Directive Response Recorded Date/ Time Do you have a Healthcare Power of Wildlife Conservation Professor? Yes April 23, 2025 10:09am Advance Directives Yes September 21 9:23am Chief [...] sore Chief Complaint Admit Date 1 Y October 14, 2024 1:04 pm BILAT CAROTID [...] October 28, 2024 8:1 2am 1 Y November 01, 2024 7:5 0am EORDERS November [...] 2025 12:51pm Peripheral arterial disease February 05, 025 12:51pm Chief Complaint Admit Date Consult Right Carotid Stenosis January 12:51pm 4 MO FU February 18, 2025 9: 54am DR TO FAX April 02, 2025 1:00pm Reason for Visit Admit Date Carotid artery stenosis February 05, 2025 12:51pm Peripheral arterial disease February 05 025 12:51pm Bilateral carotid bruits February 18 9:54am Polyneuropathy February 18, 2025 9: 54am Chief Complaint Admit Date Consult Right Carotid Stenosis January 12:51pm 4 MO FU February 18, 2025 9: 54am TO FAX April 02, 2025 1:00pm back April 23, 2025 9 :22am CONCERN FOR UTI April 25, 2025 2 :59pm Reason for Visit Admit Date Carotid artery stenosis February 05, 2025 12:51pm Peripheral arterial disease February 05 025 12:51pm Bilateral carotid bruits February 18 9:54am Polyneuropathy February 18, 2025 9: 54am Dehydration April 25, 2025 2 :59pm Generalized weakness April 25, 2025 2:59pm Additional Source Comments (unrecognized sect ion and content) No Status Records FoundNo Status Records FoundNo Status Records Found INFORMATION SOURCE (unrecogn ized section and content) DATE CREATED AUTHOR 12/28/2017 [facility] DATE CREATED AUTHOR AUTHOR'S ORGANIZ ATION 09/04/2021 [facility] DATE CREATED AUTHOR AUTHOR'S ORGANIZ ATION 05/12/2025 [facility] Reason for Visit (unrecogniz ed section and content) Reason Comments Perioperative Medical Evaluation Fourth trochlear nerve palsy right eye Care Teams (unrecognized sec tion and content) Recreational Counselor Relationship Specialty Start Date End Date No, Physician [facility] PCP - General 09/02/21 Team Status: Active Member Role Status Dates Dr. Fidencio Rowley MD Family Provider Active Dr. Fidencio Rowley MD Primary Care Provider Activ e Team Status: Inactive Member Role Status Dates Dr. Fidencio Rowley MD Primary Care Provider, Refe rring Provider Active Debi Holguin PHARMACEUTICAL WORKER, PHARMACEUTICAL WORKER-C Attending Provider Active Team Status: Inactive Member [...] Care Provider Activ e Star Doherty NP, PHARMACEUTICAL WORKER-C Attending Provider Active Team Status: Inactive Member [...] Provider, Refe rring Provider Active Suzi Dye PHARMACEUTICAL WORKER, PHARMACEUTICAL WORKER-C Attending Provider Active Team Status: Inactive Member Role Status Dates Dr. Fidencio Rowley MD Primary Care Provider, Refe rring Provider Active Yesica Solano , PHARMACEUTICAL WORKER-C Attending Provider Active Team Status: Active Member Role Status Dates Dr. Fidencio Rowley MD Primary Care Provider Activ e Suzi Dye PHARMACEUTICAL WORKER, PHARMACEUTICAL WORKER-C Referring Provider, Other Provi irene Active Dr. Teddy Anaya MD Attending Provider Active Team Status: Inactive Member Role Status Dates Dr. Fidencio Rowley MD Primary Care Provider Activ e Suzi Dye PHARMACEUTICAL WORKER, PHARMACEUTICAL WORKER-C Attending Provider, Referring P sharri Active Team [...] 2024 End: November 01, 2024 Suzi Dye PHARMACEUTICAL WORKER, PHARMACEUTICAL WORKER-C Attending Provider Active Start: November 01, 2024 End: November 01, 2024 Team Status: Inactive Member Role Status Dates Dr. Sajan Rowley MD Primary Care Provider Acti ve Start: November 01, 2024 End: November 01, 2024 Suzi Dye PHARMACEUTICAL WORKER, PHARMACEUTICAL WORKER-C Attending Provider Active Start: November 01, 2024 End: November 01, 2024 Suzi Dye PHARMACEUTICAL WORKER, PHARMACEUTICAL WORKER-C Referring Provider Active Start: November 01, 2024 [...] 2024 End: November 01, 2024 Suzi Dye PHARMACEUTICAL WORKER, PHARMACEUTICAL WORKER-C Attending Provider Active Start: November 01, 2024 End: November 01, 2024 Team Status: Inactive Member Role/Relationship Status Dates Dr. Sajan Rowley MD Primary Care Provider Acti ve Start: November 01, 2024 End: November 01, 2024 Suzi Dye PHARMACEUTICAL WORKER, PHARMACEUTICAL WORKER-C Attending Provider Active Start: November 01, 2024 End: November 01, 2024 Suzi Dye PHARMACEUTICAL WORKER, PHARMACEUTICAL WORKER-C Referring Provider Active Start: November 01, 2024 [...] 2024 End: November 01, 2024 Suzi Dye PHARMACEUTICAL WORKER, PHARMACEUTICAL WORKER-C Attending Provider Active Start: November 01, 2024 End: November 01, 2024 Team Status: Inactive Member Role/Relationship Status Dates Dr. Sajan Rowley MD Primary Care Provider Acti ve Start: November 01, 2024 End: November 01, 2024 Suzi Dye PHARMACEUTICAL WORKER, PHARMACEUTICAL WORKER-C Attending Provider Active Start: November 01, 2024 End: November 01, 2024 Suzi Dye PHARMACEUTICAL WORKER, PHARMACEUTICAL WORKER-C Referring Provider Active Start: November 01, 2024 [...] April 02, 2025 End: April 02, 2025 Team Status: Inactive Member Role/Relationship Status [...] April 02, 2025 End: April 02, 2025 Team Status: Inactive Member Role/Relationship Status Dates Dr. Sajan Rowley MD Primary care physician Act ramírez Start: April 23, 2025 End: April 23, 2025 Dr. Nick Hughes MD Attending physician Active St art: April 23, 2025 End: April 23, 2025 Dr. Nick Hughes MD Emergency Department Physician Active Start: April 23, 2025 End: April 23, 2025 Team Status: Inactive Member Role/Relationship Status Dates Dr. Sajan Rowley MD Primary care physician Act ramírez Start: April 25, 2025 End: April 25, 2025 Dr. Sajan Rowley MD Referring Provider Active Start: April 25, 2025 End: April 25, 2025 ANUSHA Murray Attending physician Active St art: April 25, 2025 End: April 25, 2025 Team Status: Inactive Member Role/Relationship Status Dates Dr. Sajan Rowley MD Primary care physician Act ramírez Start: April 25, 2025 End: April 25, 2025 ANUSHA Murray Attending physician Active St art: April 25, 2025 End: April 25, 2025 Goals (unrecognized section and content) Goals [...] BE BASED ON THE PRIMARY CLINICAL RECORDS. [facility] [employer] [facility]. provides no warranty or guarantee of the accuracy or completeness of information in this document.
== END | disposition home or self-care (01) ==
LOC: LABSPEC 15:29
PROVIDERS: PCP Family Medicine; Visit Provider Family Medicine
DX: N40.0 Benign prostatic hyperplasia without lower urinary tract symptoms (principal)
CPT/HCPCS: 87086; 87088